=== PATIENT | male | born 1970 | race Caucasian/White ===

== ENCOUNTER 2022-02-16 15:40 | Outpatient (CLI) | payer OTHER, SELFPAY ==
--- NOTE | ~2022-02-16 | XR_ITS ---
EXAMINATION: XR knee LT 3V DATE: 02/16/2022 16:00 INDICATION: Anterior and medial left knee pain TECHNIQUE: AP, flexed lateral and sunrise views of the left knee were obtained. COMPARISON: None. FINDINGS: Alignment is normal. No fracture. Normal joint spaces but with tiny marginal osteophytes in all 3 co mpartments consistent with minimal tricompartmental osteoarthritis. No joint effusion/layering lipohe marthrosis. 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 Soft tissues are unremarkable. IMPRESSION: 1. Minimal tricompartmental osteoarthritis at the right knee. Reviewed, dictated and finalized at location A.
== END 2022-02-16 15:41 | disposition home or self-care (01) ==
PROVIDERS: PCP Internal Medicine; Visit Provider Internal Medicine
DX: M25.562 Pain in left knee (principal)
CPT/HCPCS: 73562

== ENCOUNTER 2024-07-20 09:15 | Outpatient (RCR) | payer MEDICAID, SELFPAY | END 2024-09-14 10:34 | disposition home or self-care (01) | LOC: ANHDMC 09:15 | PROVIDERS: PCP Internal Medicine; Visit Provider Internal Medicine | DX: E11.65 Type 2 diabetes mellitus with hyperglycemia (principal); Z71.89 Other specified counseling | CPT/HCPCS: G0108 ==

== ENCOUNTER 2024-11-16 07:52 | Day surgery (SDC) | payer OTHER, SELFPAY ==
[2024-11-03 08:45] VITALS: BMI 38.7
[2024-11-04 13:13] VITALS: BMI 38.7
--- NOTE | 2024-11-16 07:16 | P.PNAN_ITS ---
Anes - Initial Pre Proc Eval Procedure: Operation Date: 11/16/24 10:00 Proposed Procedures p Diagnostic Colonoscopy - Ernie Zuñiga DO Date/Time: 11/16/24 07:16 Surgeon: Ernie Zuñiga DO Pre Op Diagnosis: Positive Occult Blood Patient Data Age: 54 Gender: M Height: 1.7 m Weight: 112 kg Allergies Allergy/AdvReac Type Severity Reaction Status Date / Time acetaminophen (From Vicodin) Allergy Intermediate Gastrointestinal Verified 11/04/24 13:09 Upset hydrocodone (From Vicodin) Allergy Intermediate Gastrointestinal Verified 11/04/24 13:09 Upset Penicillins Allergy Intermediate Joint Pain Verified 11/04/24 13:09 Home Medications ?Medication ?Instructions ?Recorded ?Confirmed ?Type aspirin 81 mg tablet,delayed 81 mg PO DAILY 11/04/24 11/04/24 History release cyclobenzaprine 10 mg tablet 10 mg PO TID 11/04/24 11/04/24 History docusate sodium 100 mg capsule 100 mg PO BID PRN constipation 11/04/24 11/04/24 History duloxetine 60 mg capsule,delayed 60 mg PO DAILY 11/04/24 11/04/24 History release ibuprofen 600 mg tablet 600 mg PO Q8H PRN pain 11/04/24 11/04/24 History losartan 100 mg tablet 100 mg PO DAILY 11/04/24 11/04/24 History oxycodone-acetaminophen 5 mg-325 1 - 2 tablet PO Q4-6H PRN pain 11/04/24 11/04/24 History mg tablet pregabalin 200 mg capsule 200 mg PO BID 11/04/24 11/04/24 History rosuvastatin 5 mg tablet 5 mg PO DAILY 11/04/24 11/04/24 History semaglutide 1 mg/dose (4 mg/3 mL) 1 mg subcut WEEKLY 11/04/24 11/04/24 History subcutaneous pen injector (Ozempic) Patient hx anesthesia problems: none Family hx anesthesia problems: none Results Review: All pre-operative results and documents have been reviewed as part of the pre- operative evaluation. [facility] Past Medical History Medical History (Updated 11/16/24 @ 09:09 by Ernie Zuñiga DO) Chronic, continuous use of opioids Chronic pain Diabetes type 2, controlled Hypertension Hyperlipidemia Surgical History Surgical History (Updated 11/16/24 @ 07:17 by Kevan Echols DO) History of cervical spinal surgery Social History Social History Smoking status: Former smoker Tobacco type: cigarettes Living arrangements: with family Spiritual care concerns: No Anes - Eval Final PreProcedure Day of Procedure 11/16/24 07:16 Patient weight: obese Heart: regular rate and rhythm Lungs: clear to auscultation Airway: Mallampati scale class II Neurological: alert and oriented Last oral intake: >/= 8 hours ASA classification: III Emergent: no Anesthetic plan: proceed Anesthesia type and monitoring: general GIVS and standard monitoring Results Review: All pre-operative results and documents have been reviewed as part of the pre- operative evaluation. Informed Consent: The patient's anesthetic plan and its attendant risks and benefits were discussed with the patient/family/POA. Questions were solicited and answers provided to the satisfaction of the patient/family/POA.
[2024-11-16 09:08] VITALS: BP 123/77; PULSE 57; RESP 16; TEMP 36.9; O2SAT 100
--- NOTE | 2024-11-16 09:08 | P.HP_ITS ---
H&P: HPI History of Present Illness Date/Time: 11/16/24 09:08 Chief Complaint: positive occult blood in the stool Narrative: this is a 54-year-old man who presents for colonoscopy. It has been many years since he had a colonoscopy. He has some blood when wiping and sewed of fecal occult blood stool. Denies any blood mixed in with the stool. Denies family history of colon cancer. Review of Systems Review of Systems: All systems reviewed & are unremarkable except as noted in HPI and below Constitutional: Constitutional: Denies chills, Denies fever(s), Denies headache(s) and Denies weight loss Eyes: Eyes: Denies change in vision ENT: Denies dizziness, Denies headache(s), Denies neck mass and Denies throat swelling Cardiovascular: Cardiovascular: Denies chest pain, Denies lightheadedness and Denies dyspnea Respiratory: Respiratory: Denies cough, Denies dyspnea and Denies wheezing Gastrointestinal: Gastrointestinal: Denies abdominal pain, Denies change in bowel habits, Denies nausea and Denies vomiting Genitourinary: Genitourinary: Denies hematuria and Denies dysuria Musculoskeletal: Musculoskeletal: Reports as per HPI Integumentary/Breasts: Skin/Breast: Reports as per HPI Neurologic: Denies dizziness and Denies headache(s) Allergic/Immunologic: Allergic/Immunologic: Denies throat swelling and Denies wheezing [facility] Past Medical History Medical History (Updated 11/16/24 @ 09:09 by Ernie Zuñiga DO) Chronic, continuous use of opioids Chronic pain Diabetes type 2, controlled Hypertension Hyperlipidemia Surgical History Surgical History (Updated 11/16/24 @ 07:17 by Kevan Echols DO) History of cervical spinal surgery Social History Social History Smoking status: Former smoker Tobacco type: cigarettes Living arrangements: with family Spiritual care concerns: No Meds Home Medications and Allergies Home Medications ?Medication ?Instructions ?Recorded ?Confirmed ?Type aspirin 81 mg tablet,delayed 81 mg PO DAILY 11/04/24 11/04/24 History release cyclobenzaprine 10 mg tablet 10 mg PO TID 11/04/24 11/04/24 History docusate sodium 100 mg capsule 100 mg PO BID PRN constipation 11/04/24 11/04/24 History duloxetine 60 mg capsule,delayed 60 mg PO DAILY 11/04/24 11/04/24 History release ibuprofen 600 mg tablet 600 mg PO Q8H PRN pain 11/04/24 11/04/24 History losartan 100 mg tablet 100 mg PO DAILY 11/04/24 11/04/24 History oxycodone-acetaminophen 5 mg-325 1 - 2 tablet PO Q4-6H PRN pain 11/04/24 11/04/24 History mg tablet pregabalin 200 mg capsule 200 mg PO BID 11/04/24 11/04/24 History rosuvastatin 5 mg tablet 5 mg PO DAILY 11/04/24 11/04/24 History semaglutide 1 mg/dose (4 mg/3 mL) 1 mg subcut WEEKLY 11/04/24 11/04/24 History subcutaneous pen injector (Ozempic) Allergies Allergy/AdvReac Type Severity Reaction Status Date / Time acetaminophen (From Vicodin) Allergy Intermediate Gastrointestinal Verified 11/04/24 13:09 Upset hydrocodone (From Vicodin) Allergy Intermediate Gastrointestinal Verified 11/04/24 13:09 Upset Penicillins Allergy Intermediate Joint Pain Verified 11/04/24 13:09 Exam Const: General: no acute distress and alert Orientation/consciousness: patient oriented x3 HENMT: Head: normocephalic and atraumatic Ears: hearing grossly normal bilaterally Face/Nose/Sinus: Normal nares present Mouth: Yes Normal oral and palatal mucosa present Eyes: Periorbital: periorbital findings normal Sclera: sclerae normal EOM: EOMs intact bilaterally Neck: Neck: normal visual inspection, no lymphadenopathy and trachea midline Chest: Chest palpation & inspection: normal inspection of the chest Resp: Effort & Inspection: normal respiratory effort Auscultation: clear to auscultation bilaterally Cardio: Jugular venous distension: no JVD Rate: regular rate Rhythm: regular rhythm Heart sounds: S1 normal heart sound present and S2 normal heart sound present Peripheral pulses: Peripheral pulses 2+ throughout GI: Inspection: normal to inspection GI Palp: Yes Soft to palpation, No Tenderness to palpation present (GI), No Guarding due to palpation present (GI) and No Rebound tenderness present Percussion: Yes normal to percussion Auscultation: normal bowel sounds : General: Yes no CVA tenderness Back/Spine/Pelvis: Back: no CVA tenderness Neuro: General: patient oriented x3, no focal motor deficits and CN's II-XI intact bilaterally Cognition (Neuro): normal cognition Speech: normal speech Motor exam (neuro): 5/5 motor strength present throughout Extrem: General: capillary refill normal and no clubbing, cyanosis or edema Assessment and Plan Assessment and plan (1) Positive fecal occult blood test: Code(s): R19.5 - Other fecal abnormalities Status: Acute Assessment and Plan: I have recommended colonoscopy. I have discussed the procedure, risks, bene fits, and alternatives. Questions were answered. Patient is agreeable to proceed.
[2024-11-16] MEDS: LACTATED RINGERS 1,000 ML 150 ML IV CONT (09:10)
[2024-11-16 09:16] LABS: Glucose Point of Care 124 mg/dl (65-105)
[2024-11-16 09:38] VITALS: BP 120/74; PULSE 68; RESP 16; O2SAT 98
--- NOTE | 2024-11-16 09:45 | WPDANESPN ---
Anes - Prog Note Post-Op Date/Time: 11/16/24 09:45 Cardiovascular status: normal Respiratory status: normal Airway patency: baseline Mental status: baseline Post-Op hydration status: normal Vital Signs: Last Vital Signs Temp 36.9 C 11/16/24 09:08 Pulse 68 11/16/24 09:38 Resp 16 11/16/24 09:38 BP 120/74 11/16/24 09:38 Pulse Ox 98 11/16/24 09:38 O2 Del Method Room Air 11/16/24 09:38 Pain Score (VAS): 0 I/O: Intake & Output 11/15/24 11/16/24 11/16/24 23:59 07:59 15:59 Intake Total 300 Balance 300 11/16/24 09:11 POC Capillary Glucose 124 H Post-procedural complaints: none Patient Feedback: Patient satisfied with anesthetic care. Other Findings: Patient vital signs back to baseline. Patient denies nausea and vomiting. Patient's pain under control. Patient OK for discharge.
[2024-11-16 09:48] VITALS: BP 101/83; PULSE 75; RESP 16; O2SAT 99
[2024-11-16 09:58] VITALS: BP 115/97; PULSE 55; RESP 16; O2SAT 100
== END 2024-11-16 10:10 | disposition home or self-care (01) ==
PROVIDERS: PCP Internal Medicine; Visit Provider Surgery
PROC: 0DJD8ZZ Inspection of Lower Intestinal Tract, Via Natural or Artificial Opening Endoscopic (ICD-10-PCS; CPT 45378; principal; 2024-11-16 10:00)
DX: R19.5 Other fecal abnormalities (principal); D12.0 Benign neoplasm of cecum; D12.5 Benign neoplasm of sigmoid colon; A63.0 Anogenital (venereal) warts
CPT/HCPCS: 45380

== ENCOUNTER 2024-11-16 08:52 | Outpatient (NON) | payer OTHER, SELFPAY ==
--- OUTSIDE RECORDS SUMMARY | 2024-11-24 10:06 | XMS_ITS ---
Author Organization [facility] Address [address] [place] [address] Care Team Providers Care Creping Machine Operator Name Role Phone Gustavo Brian Carmine [phone] Encounters Encounter Location Date Provider Diagnosis [facility] [address] [place] [address] 08/02/2023 Brian Chen PLAN OF TREATMENT No Information Progress Notes * Javier SANCHEZ:1970 (52 yo M)Acc No.[id number]:08/02/2023 Patient:??Javier Sanchez :1970?Age:52 Y?Sex:Ma le Address:[address] [place] [address];, [place] [address] * true * Date:??
--- OUTSIDE RECORDS SUMMARY | 2024-11-24 10:06 | XMS_ITS | Encounter Summary ---
Author Organization [employer] Care Team Providers Care Plastic Boat Patcher Name Role Phone Hai Pradhan MD Primary Care Provider [phone] Encounter Details Date Type Department Care Team (Latest Contact Info) Description 02/21/2023 Travel Social History Tobacco Use Types Packs/Day Years Used Date Smoking Tobacco: Never Smokeless Tobacco: Never Alcohol Use Standard Drinks/Week Comments Yes 0 (1 standard drink = 0.6 oz pur e alcohol) Sex and Gender Information Value Date Recorded Sex Assigned at Not on file Legal Sex Male 10:09 PM CDT Gender Identity Not on file Sexual Orientation Not on file COVID-19 Exposure Response Date Recorded In the last 10 days, have yo u been in contact with someone who was confirmed or suspected to have Coronavirus/COVID-19? No / Unsure 02/21/2023 8:04 AM CDT documented as of this encounter Plan of Treatment Not on file documented as of this encounter Visit Diagnoses Not on filedocumented in this encounter Care Teams Plastic Boat Patcher Relationship Specialty Start Date End Date Hai Pradhan MD [address] [place] [address] PCP - General Internal Medicine 02/18/23 documented as of this encounter
--- OUTSIDE RECORDS SUMMARY | 2024-11-24 10:06 | XMS_ITS | Encounter Summary ---
Author Organization [facility] Address [address] [place] [address] Phone Care Team Providers Care Elevator Constructor Supervisor Name Role Phone Hai Pradhan MD Primary Care Provider [phone] Reason for Visit * Auth/Cert (Routine) Specialty Diagnoses / Procedures Referred By Contac t Referred To Contact Diagnoses LOW BACK PAIN Procedures PRE / POST CARE FOR PROCEDURAL AREA Referral ID Status Reason Start Date Expiration Date Visits Re quested Visits Authorized [id number] 1 1 Encounter Details Date Type Department Care Team (Late st Contact Info) Description 02/21/2023 9:00 AM CDT - 02/21/2023 10:00 AM CDT Surgery [facility] [address] [place] [address] Provider, Not On File [place] PRE / POST CARE FOR PROCEDURAL AREA - CT MYELOGRAM LUMBAR SPINE Surgery Details Date/Time Status Location OR Service Patient Class Case Class Case Type Trauma Case? 02/21/2023 9:00 AM Posted [facility] INVASIVE IMAGING [facility] IR [facility] Ambulatory Surgery Panel 1 Procedure [facility] Anes Op Region Wound Class Comments PRE / POST CARE FOR PROCEDUR AL AREA - CT MYELOGRAM LUMBAR SPINE N/A Local Surgeon Surgeon Role Service Panel Provider, Not On File Primary Radiology 1 documented in this encounter Social History Tobacco Use Types Packs/Day Years [...] Recorded In the last 10 days, have ruperto u been in contact with someone who was confirmed or suspected to have Coronavirus/COVID-19? No / Unsure 02/21/2023 8:04 AM CDT documented as of this encounter Last Filed Vital Signs Vital Sign Reading Time Taken Comments Blood Pressure 150/88 02/21/2023 10:00 AM CDT Pulse 54 02/21/2023 10:00 AM CDT Temperature 36.9 ??C (98.4 ??F) 02/21/2023 10:00 AM C DT Respiratory Rate 15 02/21/2023 10:00 AM CDT Oxygen Saturation 100% 02/21/2023 10:00 AM CDT Inhaled Oxygen Concentration - - Weight 124.3 kg (274 lb) 02/21/2023 8:22 AM CDT Height 170.2 cm (5' 7 ) 02/21/2023 8:22 AM CDT Body Mass Index 42.91 02/21/2023 8:22 AM CDT documented in this encounter Discharge Instructions * Discharge Instructions* Neli Mae, RN - 02/21/2023 10:04 AM CDT GENERAL GUIDELINES FOR MINIMIZING NAUSEA: Do not take pain medication on an empty stomach Eat small portions of foods because they are easier to digest and move through your stomach much faster. Be sure you are staying hydrated. Clear, cool beverages are recommended. Only take what you can tolerate. You might like trying clear soups, flavored gelatin, carbonated beverages, popsicles and ice cubes made of frozen drinks. Avoid the smells of cooking food, especially greasy ones, as the smells make make you nauseated. documented in this encounter Medications at Time of Discharge DULoxetine (CYMBALTA) [address] Particles TAKE 1 CAP BY MOUTH DAILY. 90 Cap 10/21/2017 losartan (COZAAR) 100 MG Tablet Take 100 mg by mouth. 10/23/2021 documented as of this encounter Miscellaneous Notes * Interdisciplinary - Neli Mae, RN - 02/21/2023 10:51 AM CDT Pt. Ready for D/c. D/C instructions given, all questions answered. No complaints, VSS. Pt. To be wheeled out by RN, pt. To be driven home by family. Vick Mae RN * Plan of Care - Neli Mae RN - 02/21/2023 10:08 AM CDT Problem: Adult Inpatient Plan of Care Goal: Plan of Care Review Outcome: Outcome Achieved Flowsheets (Taken 02/21/2023 1008) Today's Goal: pt. to go home today Goal: Patient-Specific Goal (Individualized) Outcome: Outcome Achieved Goal: Absence of Hospital-Acquired Illness or Injury Outcome: Outcome Achieved Goal: Optimal Comfort and Wellbeing Outcome: Outcome Achieved Goal: Readiness for Transition of Care Outcome: Outcome Achieved * PatientPass Patient Instructions - Provider, Not On File - 02/21/2023 10:05 AM CDT Patient Education Table of Contents Myelogram To view videos and all your education online visit, [email or web address] or scan this QR code with your smartphone. Myelogram A myelogram is an imaging study of the spinal cord and the places where nerves attach to the spinalcord (nerve roots). A dye (contrast material) is injected into the spine before the X-ray. This provides a clearer image for your health care provider to see. You may need this study done if you have a spinal cord problem that cannot be diagnosed with other imaging studies, such as a CT scan or an MRI. You may also have this study to check your spine aftersurgery. Tell a health care provider about: Any allergies you have, especially to iodine. All medicines you are taking, including vitamins, herbs, eye drops, creams, and oprp-ukw-catfoev medicines. Any problems you or family members have had with anesthetic medicines or contrast material. Any blood disorders you have. Any surgeries you have had. Any medical conditions you have or have had, including asthma. Whether you are or may be . What are the risks? Generally, this is a safe procedure. However, problems may occur, including: Infection. Bleeding. Allergic reaction to medicines or dyes. Damage to your spinal cord or nerves. Loss or leaking of spinal fluid. This can lead to headaches. Damage to kidneys. Seizures. This is rare. What happens before the procedure? Follow instructions from your health care provider about eating or drinking restrictions. You may be asked to drink more fluids. Ask your health care provider about changing or stopping your regular medicines. This is especiallyimportant if you are taking diabetes medicines or blood thinners. Plan to have someone take you home from the hospital or clinic. If you will be going home right after the procedure, plan to have someone with you for 24 hours. What happens during the procedure? You will lie face down on a table. Your health care provider will locate the best injection site on your spine. This is most often in the lower back. The area of injection will be washed with soap. You will be given a medicine to numb the area (local anesthetic). Your health care provider will insert a long needle into the space around your spinal cord (subarachnoid space). A sample of spinal fluid may be taken and sent to the lab for testing. The contrast material will be injected into the subarachnoid space. The exam table may be tilted to help the contrast material flow up or down your spine. The X-ray will take images of your spinal cord for your health care provider to examine. A bandage (dressing) may be placed over the injection site. The procedure may vary among health care providers and hospitals. What can I expect after this procedure? Your blood pressure, heart rate, breathing rate, and blood oxygen level may be monitored until you leave the hospital or clinic. You may have: Soreness on your injection site. A mild headache. You will be asked to lie down with your head raised (elevated). This reduces the risk of a headache. It is up to you to get the results of your procedure. Ask your health care provider, or the department that is doing the procedure, when your results will be ready. Follow these instructions at home: Rest as told by your health care provider. Lie flat with your head slightly elevated to reduce the risk of a headache. Do not bend, lift, or do hard work for 24?48 hours, or as told by your health care provider. Take rqgf-ldw-zsyfulh and prescription medicines only as told by your health care provider. Take care of your dressing as told by your health care provider. Drink enough fluid to keep your urine pale yellow. Bathe or shower as told by your health care provider. Contact a health care provider if: You have a fever. You have a headache that lasts longer than 24 hours. You feel nauseous or vomit. You have a stiff neck or numbness in your legs. You are unable to urinate or have a bowel movement. You develop a rash, itching, or sneezing. Get help right away if: You have new symptoms or your symptoms get worse. You have a seizure. You have trouble breathing. Summary A myelogram is an imaging study of the spinal cord and the places where nerves attach to the spinalcord (nerve roots). Before the procedure, follow instructions from your health care provider about changing or stoppingyour regular medicines, and eating and drinking restrictions. After this procedure, you will be asked to lie down with your head raised (elevated). This reduces your risk of a headache. Do not bend, lift, or do hard work for 24?48 hours, or as told by your health care provider. Contact a health care provider if you have a stiff neck or numbness in your legs. Get help right away if symptoms get worse, or you have a seizure or trouble breathing. This information is not intended to replace advice given to you by your health care provider. Make sure you discuss any questions you have with your health care provider. Document Released: 07/04/2005Document Revised: 2Document Reviewed: 01/21/2020 [employer] Patient Education ? 2022 [employer]. documented in this encounter Plan of Treatment Not on file documented as of this encounter Procedures Procedure Name Priority Date/Time Associated Diagnosis Comments PRE / POST CARE FOR PROCEDURAL AREA 02/21/2023 9:00 AM CDT LOW BACK PAIN documented in this encounter Visit Diagnoses Not on filedocumented in this encounter Care Teams Elevator Constructor Supervisor Relationship Specialty Start Date End Date Hai Pradhan MD [address] [place] [address] PCP - General Internal Medicine 02/18/23 documented as of this encounter
--- OUTSIDE RECORDS SUMMARY | 2024-11-24 10:06 | XMS_ITS | Patient Health Record ---
Author Organization [facility] Address [address] [address] Care Team Providers Care Tree Trimming Supervisor Name Role Phone Brian Chen [phone] ALLERGIES Allergen (clinical drug ingredient) Drug/Non Drug Allergy documented on EMR Reaction Allergy Type Onset Date Status Penicillin itchy Drug Allergy Active REASON FOR REFERRAL No Information MEDICATIONS Medication SIG (Take, Route, Frequency, Duration) Notes Start Date End Date Status Pregabalin 75 MG 1 capsule Orally riana ly at bedtime for one week then, if well tolerated, q 12 hours for 30 days 04/16/2023 Active DULoxetine HCl 60 MG 1 capsule Orally On ce a day Active Celecoxib 200 MG 1 capsule with food Orally Once a day Active Losartan Potassium 100 MG 1 tablet Orally Once a day Active SOCIAL HISTORY Tobacco Use: Social History Observation Description Date Details (start date - stop date) Former Smoker NA - NA Sex Assigned At : Social History Observation Description Sex Assigned At Unknown Tobacco Use/Smoking Question Answer Notes Are you a former smoker PROBLEMS Problem Type ICD Code Onset Dates Problem Status W/U Status Risk SNOMED Code Notes Problem Failed back syndrome (M96.1) Active confirmed Failed back syndrome (29940394) Problem Bilateral sacroiliitis (M46.1) Active confirmed Bilateral sacroiliitis (6298907845) Problem History of lumbar fusion (Z98.1) Active confirmed History of lumbar fusion (51417426437228) PLAN OF TREATMENT No Information MEDICATIONS ADMINISTERED Medication Instructions Date of Administration Dosage Notes Bilateral Sacroiliac Joint Injection 04/29/2023 MEDICAL (GENERAL) HISTORY Medical History History ICD Code high blood pressure headaches nerve damage
--- OUTSIDE RECORDS SUMMARY | 2024-11-24 10:06 | XMS_ITS | Clinical Summary ---
Author Organization [facility] Address [address] [place] [address] Phone Care Team Providers Care Scrap Hoist Operator Name Role Phone Hai Pradhan MD Primary Care Provider [phone] Allergies Active Allergy Reactions Criticality Noted Date Comments Hydrocodone-Acetaminophen Nausea 02/21/2023 Sweating and nauseas Penicillins Unknown Medications DULoxetine (CYMBALTA) [address] Particles TAKE 1 CAP BY MOUTH DAILY. 90 Cap 10/21/2017 Active losartan (COZAAR) 100 MG Tablet Take 100 mg by mouth. 10/23/2021 Active Active Problems Problem Noted Date Diagnosed Date Depression 05/23/2016 Acid reflux Immunizations Immunization Administration Dates Next Due Influenza Vaccine greater than 3 yrs 07/26/2014 Pneumococcal Vaccine Adult - 23 Valent 4 TD VACCINE 05/25/2007 Social History Tobacco Use Types Packs/Day Years Used Date Smoking Tobacco: Never Smokeless Tobacco: Never Alcohol Use Standard Drinks/Week Comments Yes 0 (1 standard drink = 0.6 oz pur e alcohol) Sex and Gender Information Value Date Recorded Sex Assigned at Not on file Legal Sex Male 10:09 PM CDT Gender Identity Not on file Sexual Orientation Not on file Last Filed Vital Signs Vital Sign Reading Time Taken Comments Blood Pressure 116/72 02/21/2023 10:45 AM CDT Pulse 62 02/21/2023 10:45 AM CDT Temperature 37 ??C (98.6 ??F) 02/21/2023 10:45 AM CDT Respiratory Rate 15 02/21/2023 10:45 AM CDT Oxygen Saturation 98% 02/21/2023 10:45 AM CDT Inhaled Oxygen Concentration - - Weight 124.3 kg (274 lb) 02/21/2023 8:22 AM CDT Height 170.2 cm (5' 7 ) 02/21/2023 8:22 AM CDT Body Mass Index 42.91 02/21/2023 8:22 AM CDT Plan of Treatment Health Maintenance Due Date Last Done Comments Hepatitis C Virus (HCV) Screening 1971 Colonoscopy 2016 Colorectal Cancer Screening 2016 Hepatitis B Immunization (2 of 3 - Hep B Twinrix 3-dose series) 08/25/2019 07/28/2019 Cologuard 2021 Immunochemical Fecal Occult Blood 2021 Pneumococcal Immunization (50+ years) (3 of 3 - PCV20 or PCV21) 07/17/2024 07/17/2019, 02/06/2018, 08/10/2014, Additional history exists Influenza Immunization (#1) 07/26/202402/2022, 08/26/2020, 08/29/2019, Additional history exists SARS-COV-2 Immunization ( season) 2024 08/27/2022, 11/09/2021, 04/21/2021, Additional history exists Respiratory Syncytial Virus (RSV) Immunization (Adult) (1 - 1-dose 75+ series) 2046 Pneumococcal Immunization Combined Discontinued 07/17/2019, 02/06/2018, 08/10/2014, Additional history exists DTaP/Tdap/Td Immunization Discontinued 2021, 09/17/2014, 05/25/2007 TdaP Immunization Completed 04/16/2022 Zoster Immunization Completed 05/08/2022, 2 Meningococcal Immunization (ACWY) Aged Out No longer eligible based on patient's age to complete this topic Rotavirus Immunization Aged Out No lo nger eligible based on patient's age to complete this topic Insurance [facility] 15TH FLOOR [facility] [id number] Care Teams Scrap Hoist Operator Relationship Specialty Start Date End Date Hai Pradhan MD [address] [place] [address] PCP - General Internal Medicine 02/18/23
--- OUTSIDE RECORDS SUMMARY | 2024-11-24 10:07 | XMS_ITS | Encounter Summary ---
Author Organization [facility] Address [address] [place] [address] Phone Care Team Providers Care Operations And Intelligence Assistant Name Role Phone Shonda Carlton PAC Primary Care Pro vider Reason for Visit * Reason Comments Cough Encounter Details Date Type Department Care Team (Late st Contact Info) Description 10/13/2020 10:41 AM SKIN CARE THERAPIST - 10/13/2020 12:55 PM SKIN CARE THERAPIST Emergency [facility] Emergency [address] [place] [address] Bowen Do, PAC [address] [place] [address] Chest wall pain Discharge Disposition: Discharged to home or Selfcare Social History Tobacco Use Types Packs/Day Years [...] Exposure Response Date Recorded In the last month, have you been in contact with someone who was confirmed or suspected to have Coronavirus / COVID-19? Yes 10/13/2020 10:34 AM SKIN CARE THERAPIST documented as of this encounter Last Filed Vital Signs Vital Sign Reading Time Taken Comments Blood Pressure 139/80 10/13/2020 12:53 PM SKIN CARE THERAPIST Pulse 58 10/13/2020 12:53 PM SKIN CARE THERAPIST Temperature 36.3 ??C (97.3 ??F) 10/13/2020 10:[address] Respiratory Rate 18 10/13/2020 12:53 PM SKIN CARE THERAPIST Oxygen Saturation 98% 10/13/2020 12:53 PM SKIN CARE THERAPIST Inhaled Oxygen Concentration - - Weight 115.7 kg (255 lb) 10/13/2020 10:36 AM SKIN CARE THERAPIST Height 170.2 cm (5' 7 ) 10/13/2020 10:36 AM SKIN CARE THERAPIST Body Mass Index 39.94 10/13/2020 10:36 AM SKIN CARE THERAPIST documented in this encounter Discharge Instructions * Attachments The following attachments cannot be sent through Care Everywhere. * Chest Pain, Noncardiac (Afghan) documented in this encounter Medications at Time of Discharge DULoxetine (CYMBALTA) [address] Particles TAKE 1 CAP BY MOUTH DAILY. 90 Cap 10/21/2017 predniSONE (DELTASONE) 20 MG Tablet Take 1 Tab by mouth 2 times daily for 5 days. 10 Tab 10/13/2020 10/18/2020 documented as of this encounter ED Notes * Prisca Awda RN - 10/13/2020 12:54 PM CST Patient discharged. Discharge instructions and patient educational material reviewed with patient; questions and concerns addressed; patient verbalizes understanding, using teach back. Patient was given 1 prescription. Patient ambulated to exit. CARE THERAPIST CARE THERAPIST * Bowen Do, AIMEE - 10/13/2020 11:34 AM CST Chief Complaint Patient presents with ??? Cough Javier Sanchez is a 50 y.o. male who presents to the ED c/o right upper chest pain with deep inspiration and dry cough. No fever. Patient was COVID positive 10/06 and taken off restriction 10/11. He started a zpack 10/11 for right upper chest pain presumed pneumonia by PCP, no improvement. patient hashad similar sxs in the past as a result of pneumonia. Patient appears in no acute distress. Patient afebrile, SpO2 97% on RA. History reviewed. No pertinent past medical history. No current facility-administered medications for this encounter. Current Outpatient Medications Medication Sig Dispense Refill ??? DULoxetine (CYMBALTA) [address] Particles TAKE 1 CAP BY MOUTH DAILY. 90 Cap 0 ??? predniSONE (DELTASONE) 20 MG Tablet Take 1 Tab by mouth 2 times daily for 5 days. 10 Tab 0 Allergies Allergen Reactions ??? Penicillins Unknown History reviewed. No pertinent past medical history. No past surgical history on file. Social History Socioeconomic History ??? Marital status: Spouse name: Not on file ??? Number of children: Not on file ??? Years of education: Not on file ??? Highest education level: Not on file Occupational History ??? Not on file Social Needs ??? Financial resource strain: Not on file ??? Food insecurity Worry: Not on file Inability: Not on file ??? Transportation needs Medical: Not on file Non-medical: Not on file Tobacco Use ??? Smoking status: Never Smoker ??? Smokeless tobacco: Never Used Substance and Sexual Activity ??? Alcohol use: Yes Alcohol/week: 0.0 oz ??? Drug use: No ??? Sexual activity: Not on file Lifestyle ??? Physical activity Days per week: Not on file Minutes per session: Not on file ??? Stress: Not on file Relationships ??? Social connections Talks on phone: Not on file Gets together: Not on file Attends judaism service: Not on file Active member of club or organization: Not on file Attends meetings of clubs or organizations: Not on file Relationship status: Not on file ??? Intimate partner violence Fear of current or ex partner: Not on file Emotionally abused: Not on file Physically abused: Not on file Forced sexual activity: Not on file Other Topics Concern ??? Not on file Social History Narrative ??? Not on file BP 139/80 Pulse 58 Temp 97.3 ??F (36.3 ??C) (Tympanic) Resp 18 Ht 5' 7 (1.702 m) Wt 255 lb (115.7 kg) SpO2 98% BMI 39.94 kg/m?? Review of Systems Constitutional: Negative for chills, fatigue and fever. HENT: Negative for congestion and sore throat. Respiratory: Positive for cough. Negative for chest tightness, shortness of breath and wheezing. Cardiovascular: Positive for chest pain (chest wall pain). Negative for palpitations. Gastrointestinal: Negative for abdominal pain, constipation, diarrhea, nausea and vomiting. Genitourinary: Negative for dysuria, frequency, hematuria and urgency. Musculoskeletal: Negative for arthralgias and back pain. Skin: Negative for color change and wound. Neurological: Negative for dizziness, light-headedness and headaches. All other systems reviewed and are negative. Physical Exam Vitals signs and nursing note reviewed. Constitutional: General: He is not in acute distress. Appearance: He is well-developed. He is not diaphoretic. HENT: Head: Normocephalic and atraumatic. Eyes: Pupils: Pupils are equal, round, and reactive to light. Neck: Musculoskeletal: Normal range of motion and neck supple. Thyroid: No thyromegaly. Cardiovascular: Rate and Rhythm: Normal rate and regular rhythm. Heart sounds: Normal heart sounds. No murmur. Pulmonary: Effort: Pulmonary effort is normal. No respiratory distress. Breath sounds: Normal breath sounds. No wheezing, rhonchi or rales. Chest: Chest wall: No tenderness. Abdominal: General: Bowel sounds are normal. There is no distension. Palpations: Abdomen is soft. There is no mass. Tenderness: There is no abdominal tenderness. There is no guarding or rebound. Musculoskeletal: Normal range of motion. General: No tenderness. Lymphadenopathy: Cervical: No cervical adenopathy. Skin: General: Skin is warm and dry. Coloration: Skin is not pale. Findings: No erythema or rash. Neurological: Mental Status: He is alert and oriented to person, place, and time. Cranial Nerves: No cranial nerve deficit. Psychiatric: Behavior: Behavior normal. Complete Blood Count (CBC) WITH Diff Final Result CMP (Comprehensive Metabolic Panel) Final Result D-DIMER [id number] Final Result Extra Tubes Final Result XR CHEST SINGLE VIEW Final Result IMPRESSION: No radiographic evidence of an acute cardiopulmonary abnormality. Procedures Imaging Results XR CHEST SINGLE VIEW (Final result) Result time 10/13/20 11:54:36 Final result by Bowen Banerjee MD (10/13/20 11:54:36) Impression: IMPRESSION: No radiographic evidence of an acute cardiopulmonary abnormality. Narrative: EXAM DESCRIPTION: XR CHEST SINGLE VIEW REASON FOR STUDY: Worsening cough for 2 days. Diagnosed with COVID-19 1 week ago. TECHNIQUE: Frontal radiographic view of the chest acquired. COMPARISON: CT chest 10/05/2014 FINDINGS: LUNGS/PLEURA: There is chronic mild elevation of the left hemidiaphragm, similar in appearance to the prior study. No definite airspace consolidation, pneumothorax, or pleural effusion is identified. HEART/MEDIASTINUM: The cardiomediastinal silhouette is within normal limits. HARDWARE/LINES/TUBES: None. BONES: No acute findings. THIS IS AN ELECTRONICALLY VERIFIED FINAL REPORT 10/13/2020 11:51 AM - Electronically signed by Bowen Banerjee M.D., MD: Report ID: [id number] Reading Location: [address] Coding Clinical Impression 1. Chest wall pain D dimer negative, unremarkable CXR. Steroid started today. PCP follow up in 2-3 days. Return to ED for worsening sxs. The patient remained stable throughout their ED stay. My clinical impression was discussed with thepatient/family. Labs and radiology results were reviewed with them. I gave them the opportunity to ask questions, and addressed them as completely as possible given the information available at present. The therapeutic plan was discussed, advised to take medications as instructed, instructions weregiven and the importance of primary care follow up was stressed and encouraged. The patient/family voiced understanding of the plan, indications to return, and the need for follow up. Cosigned by Soto Lund MD at 10/19/2020 6:04 AM SKIN CARE THERAPIST CARE THERAPIST CARE THERAPIST * Gordon Ponce RN - 10/13/2020 10:40 AM CST PRESENTS WITH C/O COUGH WORSENING X2 DAYS. DX'ED WITH COVID 10/06/20. CARE THERAPIST documented in this encounter Plan of Treatment Not on file documented as of this encounter Procedures Procedure Name Priority Date/Time Associated Diagnosis Comments EXTRA TUBES STAT 10/13/2020 11:57 AM SKIN CARE THERAPIST GOLD TOP TUBE STAT 10/13/2020 11:57 AM SKIN CARE THERAPIST CBC WITH AUTO DIFFERENTIAL STAT 10/13/2020 11:57 AM SKIN CARE THERAPIST D-DIMER STAT 10/13/2020 11:57 AM SKIN CARE THERAPIST CMP (COMPREHENSIVE METABOLIC PANEL) STAT 10/13/2020 11:57 AM SKIN CARE THERAPIST COMPLETE BLOOD COUNT (CBC) WITH DIFF STAT 10/13/2020 11:57 AM SKIN CARE THERAPIST XR CHEST SINGLE VIEW STAT 10/13/2020 11:32 AM SKIN CARE THERAPIST documented in this encounter Results * Gold Top Tube (10/13/2020 11:57 AM SKIN CARE THERAPIST) Blood No Phlebotomy Charged / Unknown 10/13/2020 11:57 AM SKIN CARE THERAPIST 10/13/2020 12:15 PM SKIN CARE THERAPIST Bowen Do PAC CHEMISTRY ORDERABLES Final Result [facility] [place] [address] * CBC with Auto Differential (10/13/2020 11:57 AM SKIN CARE THERAPIST) WBC 6.23 4.00 - 12.00 10(3)/mcL 10/13/2020 12:13 PM SKIN CARE THERAPIST [facility] RBC 5.22 4.40 - 5.80 10(6)/mcL 10/13/2020 12:13 PM SKIN CARE THERAPIST [facility] HEMOGLOBIN (HGB) 14.9 13.0 - 16.5 g/dL 10/13/2020 12:13 PM SKIN CARE THERAPIST [facility] HEMATOCRIT (HCT) 45.2 38.0 - 50.0 % 10/13/2020 12:13 PM SKIN CARE THERAPIST [facility] MCV 86.6 82.0 - 96.0 fL 10/13/2020 12:13 PM SKIN CARE THERAPIST [facility] MCH 28.5 26.0 - 32.0 pg 10/13/2020 12:13 PM [facility] MCHC 33.0 31.0 - 36.0 g/dL 10/13/2020 12:13 PM [facility] PLATELET COUNT 295 140 - 440 10(3)/[facility] 10/13/2020 12:13 PM [facility] RDW 12.9 11.8 - 15.5 % 10/13/2020 12:13 PM [facility] MPV 10.4 8.0 - 12.6 fL 10/13/2020 12:13 PM [facility] NEUTROPHILS 61.1 40.0 - 68.0 % 10/13/2020 12:13 PM [facility] LYMPHOCYTES 25.7 19.0 - 49.0 % 10/13/2020 12:13 PM [facility] MONOCYTES 11.1 3.0 - 13.0 % 10/13/2020 12:13 PM [facility] EOSINOPHILS 1.8 0.0 - 8.0 % 10/13/2020 12:13 PM [facility] BASOPHILS 0.3 0.0 - 1.0 % 10/13/2020 12:13 PM [facility] ABSOLUTE NEUTROPHILS 3.81 1.40 - 5.30 10(3)/[facility] 10/13/2020 12:13 PM [facility] ABSOLUTE LYMPHOCYTES 1.60 0.90 - 3.30 10(3)/[facility] 10/13/2020 12:13 PM [facility] ABSOLUTE MONOCYTES 0.69 0.10 - 0.90 10(3)/[facility] 10/13/2020 12:13 PM [facility] ABSOLUTE EOSINOPHIL 0.11 0.00 - 0.50 10(3)/[facility] 10/13/2020 12:13 PM [facility] ABSOLUTE BASOPHILS 0.02 0.00 - 0.10 10(3)/[facility] 10/13/2020 12:13 PM [facility] NRBC PER 100 WBC 0 10/13/20 20 12:13 PM [facility] Blood Venipuncture / Unknown 10/13/2020 11:57 AM SKIN CARE THERAPIST 10/13/2020 12:10 PM SKIN CARE THERAPIST Bowen Do PAC HEMATOLOGY ORDERABLE S Final Result Performing Organization Address City/[facility]/ZIP Co de Phone Number [facility] [place] [address] * D-DIMER [id number] (10/13/2020 11:57 AM SKIN CARE THERAPIST) D DIMER <=0.27 <0.50 mcg/mL FEU 10/13/2020 12:30 PM SKIN CARE THERAPIST [facility] Blood Venipuncture / Unknown 10/13/2020 11:57 AM SKIN CARE THERAPIST 10/13/2020 12:10 PM SKIN CARE THERAPIST Narrative [facility] - 10/13/2020 12:30 PM SKIN CARE THERAPIST The FDA has approved this method to exclude the diagnosis of DVT and/or PE at the cutoff value of <0.50 mcg/mL FEU. us Bowen Do PAC HEMATOLOGY ORDERABLE S Final Result Performing Organization Address [facility] Co de Phone Number [facility] [place] [address] * (ABNORMAL) CMP (Comprehensive Metabolic Panel) (10/13/2020 11:57 AM SKIN CARE THERAPIST) Pathologist [facility] SODIUM 139 136 - 144 mmol/L 10/13/2020 12:33 PM SKIN CARE THERAPIST [facility] POTASSIUM 4.4 3.5 - 5.1 mmol/L 10/13/2020 12:33 PM SKIN CARE THERAPIST [facility] CHLORIDE 103 100 - 110 mmol/L 10/13/2020 12:33 PM SKIN CARE THERAPIST [facility] CO2, VENOUS 25 22 - 32 mmol/L 10/13/2020 12:33 PM SKIN CARE THERAPIST [facility] ANION GAP 15.4 8.0 - 20.0 mmol/L 10/13/2020 12:33 PM SKIN CARE THERAPIST [facility] GLUCOSE 97 70 - 99 mg/dL 10/13/2020 12:33 PM [facility] BUN 15 6 - 20 mg/dL 10/13/2020 12:33 PM [facility] CREATININE, BLOOD 1.00 0.80 - 1.30 mg/dL 10/13/2020 12:33 PM [facility] BUN/CREATININE RATIO 15 12 - 20 ratio 10/13/2020 12:33 PM [facility] TOTAL PROTEIN 7.3 6.0 - 8.3 g/dL 10/13/2020 12:33 PM [facility] ALBUMIN 4.6 3.5 - 5.2 g/dL 10/13/2020 12:33 PM [facility] Comment: The colormetric methods used for the determination of Albumin may lead to falsely elevated test results in patients suffering from renal failure or insufficiency due to interference with other proteins. A/G RATIO 1.7 1.0 - 2.0 10/13/2020 12:33 PM [facility] CALCIUM 9.3 8.9 - 10.3 mg/dL 10/13/2020 12:33 PM [facility] T BILI <=0.2 <=1.2 mg/dL 10/13/2020 12:33 PM [facility] SGOT (AST) 30 <=40 U/L 10/13/2020 12:33 PM [facility] SGPT (ALT) 52(H) <=41 U/L 10/13/2020 12:33 PM [facility] ALKALINE PHOSPHATASE 74 40 - 130 U/L 10/13/2020 12:33 PM [facility] GFR, EST. NONAFRICAN >60 >=60 10/13/2020 12:33 PM [facility] GFR, EST. >60 >=60 020 12:33 PM [facility] Comment: Creatinine Clearance is the preferred criteria for selecting drug dose adjustments in renally impaired patients. ??The GFR is provided as additional pertinent clinical information. GFR is reported in mL/min/1.73 sq m. Blood Venipuncture / Unknown 10/13/2020 11:57 AM SKIN CARE THERAPIST 10/13/2020 12:10 PM SKIN CARE THERAPIST Bowen Do PAC CHEMISTRY ORDERABLES Final Result [facility] [place] [address] * XR CHEST SINGLE VIEW (10/13/2020 11:32 AM SKIN CARE THERAPIST) Anatomical Region Laterality Modality Chest N/A Digital Radiogra phy 10/13/2020 11:5 1 AM SKIN CARE THERAPIST Impressions 10/13/2020 11:54 AM SKIN CARE THERAPIST IMPRESSION: ?? No radiographic evidence of an acute cardiopulmonary abnormality. Narrative 10/13/2020 11:54 AM SKIN CARE THERAPIST EXAM DESCRIPTION: ?? XR CHEST SINGLE VIEW REASON FOR STUDY: ?? Worsening cough for 2 days. ??Diagnosed with COVID-19 1 week ago. TECHNIQUE: ?? Frontal radiographic view of the chest acquired. COMPARISON: ?? CT chest 10/05/2014 FINDINGS: ??LUNGS/PLEURA: ??There is chronic mild elevation of the left hemidiaphragm, similar in appearance to the prior study. ??No definite airspace consolidation, pneumothorax, or pleural effusion is identified. HEART/MEDIASTINUM: ??The cardiomediastinal silhouette is within normal limits. HARDWARE/LINES/TUBES: ??None. BONES: ??No acute findings. THIS IS AN ELECTRONICALLY VERIFIED FINAL REPORT 10/13/2020 11:51 AM - Electronically signed by Bowen Banerjee M.D., MD: D: ??10/13/2020 11:51 AM T: ??10/13/2020 11:51 AM Report ID: [id number] Reading Location: ??[id number] Procedure Note Bowen Banerjee MD - 10/13/2020 EXAM DESCRIPTION: XR CHEST SINGLE VIEW REASON FOR STUDY: Worsening cough for 2 days. Diagnosed with COVID-19 1 week ago. TECHNIQUE: Frontal radiographic view of the chest acquired. COMPARISON: CT chest 10/05/2014 FINDINGS: LUNGS/PLEURA: There is chronic mild elevation of the left hemidiaphragm, similar in appearance to the prior study. No definite airspace consolidation, pneumothorax, or pleural effusion is identified. HEART/MEDIASTINUM: The cardiomediastinal silhouette is within normal limits. HARDWARE/LINES/TUBES: None. BONES: No acute findings. THIS IS AN ELECTRONICALLY VERIFIED FINAL REPORT 10/13/2020 11:51 AM - Electronically signed by oBwen Banerjee M.D. MD: Report ID: [id number] Reading Location: [place] [address] IMPRESSION: No radiographic evidence of an acute cardiopulmonary abnormality. Bowen Do PAC IMG DIAGNOSTIC ORDER FLOR Final Result documented in this encounter Visit Diagnoses Diagnosis Chest wall pain- Primary Painful respiration documented in this encounter Active and Recently Administered Medications Care Teams Operations And Intelligence Assistant Relationship Specialty Start Date End Date Shonda Carlton, PAC [address] [place] [address] PCP - General Physician Antenna Rigger 07/17/17 02/20/22 documented as of this encounter
--- OUTSIDE RECORDS SUMMARY | 2024-11-24 10:07 | XMS_ITS | Encounter Summary ---
Author Organization [facility] Address [address] [place] [address] Phone Care Team Providers Care Strategic Manager Name Role Phone Hai Pradhan MD Primary Care Provider Reason for Referral * Radiology Services (Routine) - Closed Specialty Diagnoses / Procedures Referred By Contac t Referred To Contact Radiology Diagnoses Lumbar radiculopathy Low back pain, unspecified back pain laterality, unspecified chronicity, unspecified whether sciatica present Procedures XR LUMBAR MYELO 1 PHY PC PAIN CONSULT XR LUMBAR MYELO 1 PHY Kenan Patel MD [address] [place] [address] Phone: tel: fax: Referral ID Status Reason Start Date Expiration Date Visits Re quested Visits Authorized [id number] Closed 02/12/2023 1 1 * Radiology Services (Routine) - Closed Specialty Diagnoses / Procedures Referred By Contac t Referred To Contact Radiology Diagnoses Lumbar radiculopathy Low back pain, unspecified back pain laterality, unspecified chronicity, unspecified whether sciatica present Procedures CT LUMBAR SPINE W CONTRAST Kenan Patel MD [address] [place] [address] Phone: tel: fax: Referral ID Status Reason Start Date Expiration Date Visits Re quested Visits Authorized [id number] Closed 02/12/2023 1 1 Encounter Details Date Type Department Care Team (Latest Contact Info) Description 02/12/2023 Transcribe Orders [facility] [address] [place] [address] Kenan Patel MD [address] [place] [address] Lumbar radiculopathy (Primary Dx); Low back pain, unspecified back pain laterality, unspecified chronicity, unspecified whether sciatica present Social History Tobacco Use Types Packs/Day Years Used Date Smoking Tobacco: Never Smokeless Tobacco: Never Alcohol Use Standard Drinks/Week Comments Yes 0 (1 standard drink = 0.6 oz pur e alcohol) Sex and Gender Information Value Date Recorded Sex Assigned at Not on file Legal Sex Male 10:09 PM CDT Gender Identity Not on file Sexual Orientation Not on file documented as of this encounter Plan of Treatment Not on file documented as of this encounter Results * CT LUMBAR SPINE W CONTRAST (02/21/2023 9:50 AM CDT) Anatomical Region Laterality Modality Spine N/A Computed Tomogra phy 02/21/2023 12:3 8 PM CDT Impressions 02/21/2023 12:41 PM CDT IMPRESSION: ?? Posterior lumbar instrumented fusion spanning L2 through L5. ??Anterior fusion plate and screw stabilizing L5-S1 which appears solid without spinal stenosis or foraminal narrowing. ?? Continued visualization of the disc spaces at L2-3 through L4-5 without high-grade osseous spinal stenosis or neural foraminal stenosis.. ??Please correlate with clinical factors. ??MRI may be beneficial if indicated clinically. Narrative 02/21/2023 12:41 PM CDT EXAM DESCRIPTION: ?? CT LUMBAR SPINE W CONTRAST REASON FOR STUDY: ?? Radiculopathy, lumbar region TECHNIQUE: Axial images acquired through the lumbar spine with intravenous contrast. ??Reconstructed coronal and sagittal MPR images reviewed. ??All images stored on PACS. Automated exposure control was used as a dose optimization technique for this examination. CONTRAST TYPE/DOSE: Myelographic contrast injected intrathecally. ?? Please correlate with procedural note. COMPARISON: ?? Lumbar myelogram plain films 02/21/2023. FINDINGS: SEGMENTATION: ?? No transitional anatomy. The lowest well-developed disc space is labeled L5-S1. ALIGNMENT: ?? Normal. VERTEBRAE: ?? No fracture. ??There is contrast in the thecal sac post myelography. ??Vertebral body height well-maintained. DISC HEIGHT: ?? Well-maintained. HARDWARE: ?? Hardware incompletely visualized on the myelographic plain films. ??Would suggest routine lumbar series to assess the hardware. ??Within limitation, the spinal rods, pedicle screws and anterior plate and screw stabilization hardware appears intact. ?? Interbody fusions are visualized at L2-3 L3-4 L4-5 levels. ?? Interbody graft markers at L5-S1 evident.. INDIVIDUAL DISC LEVELS: L1-2: ?? Minimal bulge with bilateral facet arthritis. ??Mild spinal stenosis. ??No foraminal stenosis. L2-3: ?? Interbody fusion with posterior lumbar instrumented fusion and pedicle screws. ??Posterior laminectomy. ??No spinal stenosis or foraminal stenosis. L3-4: ?? Posterior laminectomy with interbody and posterior lumbar instrumented fusion hardware. L4-5: ?? Laminectomy. ??Mild posterior endplate spurs. ??No significant central canal stenosis. ??Mild osseous foraminal narrowing due to lateral endplate osteophytes. L5-S1: ?? Anterior stabilization plate with screws and interbody fusion which appears solid through the disc space. ??No spinal stenosis or foraminal stenosis. VISUALIZED RIBS: ?? No fractures. SOFT TISSUES: ?? No significant or acute finding in adjacent soft tissues. OTHER: ?? No other significant finding. THIS IS AN ELECTRONICALLY VERIFIED FINAL REPORT 02/21/2023 12:38 PM - Electronically signed by ??Candelario Campo M.D. LC: ONEAL D: ??02/21/2023 12:38 PM T: ??02/21/2023 12:38 PM Report ID: [id number] Reading Location: ??[id number] Procedure Note Winter Campo MD - 02/21/2023 EXAM DESCRIPTION: CT LUMBAR SPINE W CONTRAST REASON FOR STUDY: Radiculopathy, lumbar region TECHNIQUE: Axial images acquired through the lumbar spine with intravenous contrast. Reconstructed coronal and sagittal MPR images reviewed. All images stored on PACS. Automated exposure control was used as a dose optimization technique for this examination. CONTRAST TYPE/DOSE: Myelographic contrast injected intrathecally. Please correlate with procedural note. COMPARISON: Lumbar myelogram plain films 02/21/2023. FINDINGS: SEGMENTATION: No transitional anatomy. The lowest well-developed disc space is labeled L5-S1. ALIGNMENT: Normal. VERTEBRAE: No fracture. There is contrast in the thecal sac post myelography. Vertebral body height well-maintained. DISC HEIGHT: Well-maintained. HARDWARE: Hardware incompletely visualized on the myelographic plain films. Would suggest routine lumbar series to assess the hardware. Within limitation, the spinal rods, pedicle screws and anterior plate and screw stabilization hardware appears intact. Interbody fusions are visualized at L2-3 L3-4 L4-5 levels. Interbody graft markers at L5-S1 evident.. INDIVIDUAL DISC LEVELS: L1-2: Minimal bulge with bilateral facet arthritis. Mild spinal stenosis. No foraminal stenosis. L2-3: Interbody fusion with posterior lumbar instrumented fusion and pedicle screws. Posterior laminectomy. No spinal stenosis or foraminal stenosis. L3-4: Posterior laminectomy with interbody and posterior lumbar instrumented fusion hardware. L4-5: Laminectomy. Mild posterior endplate spurs. No significant central canal stenosis. Mild osseous foraminal narrowing due to lateral endplate osteophytes. L5-S1: Anterior stabilization plate with screws and interbody fusion which appears solid through the disc space. No spinal stenosis or foraminal stenosis. VISUALIZED RIBS: No fractures. SOFT TISSUES: No significant or acute finding in adjacent soft tissues. OTHER: No other significant finding. THIS IS AN ELECTRONICALLY VERIFIED FINAL REPORT 02/21/2023 12:38 PM - Electronically signed by Candelario Campo M.D. LC: ONEAL Report ID: [id number] Reading Location: [place] [address] IMPRESSION: Posterior lumbar instrumented fusion spanning L2 through L5. Anterior fusion plate and screw stabilizing L5-S1 which appears solid without spinal stenosis or foraminal narrowing. Continued visualization of the disc spaces at L2-3 through L4-5 without high-grade osseous spinal stenosis or neural foraminal stenosis.. Please correlate with clinical factors. MRI may be beneficial if indicated clinically. us Kenan Patel MD IMG CT ORDERABLES Final Re sult * XR LUMBAR MYELO 1 PHY (02/21/2023 9:47 AM CDT) Anatomical Region Laterality Modality Spine, L-spine N/A Radio Fluoroscop y 02/21/2023 10:3 5 AM CDT Impressions 02/21/2023 11:09 AM CDT IMPRESSION: ?? Lumbar ??Myelogram performed for CT Myelography. ?? Please refer to the report of the CT Myelogram for detailed diagnostic evaluation. Narrative 02/21/2023 11:09 AM CDT EXAM DESCRIPTION: ?XR LUMBAR MYELO 1 PHY REASON FOR STUDY: ?? Radiculopathy, lumbar region COMPARISON: None available RADIATION DOSE: Dose: ??525 ?? uGym2 Dose Area Product (DAP) TECHNIQUE: Fluoroscopic guided ?? SPINE ??myelogram. PROCEDURE: After fluoroscopic localization, sterile skin prep was performed with ?? Betadine . ??Local Anesthesia performed with 1% Lidocaine. Using fluoroscopic guidance, a ?? 22 -gauge spinal needle was advanced to the thecal sac via paracentral approach at the ?? L4-5 ??level. ??Position confirmed with return of CSF. ??Needle placement was documented with fluoroscopic images. At this point, ?? 9 ??cc's of ?? Isovue 200 M ??myelographic contrast was injected under fluoroscopic monitoring without complication. Needle was removed and a bandage applied. No post procedural neurologic changes or complications. ??Patient sent to CT scan for additional imaging. ??Discharge instructions were provided. Estimated blood loss: ??<5 ??mL FINDINGS: Contrast is present in the thecal sac. ??There is posterior decompression and lumbar fusion involving the lower lumbar spine to the sacrum. THIS IS AN ELECTRONICALLY VERIFIED FINAL REPORT 02/21/2023 10:35 AM - Electronically signed by ??Miguel Mchugh M.D. KN: SOL D: ??02/21/2023 10:35 AM T: ??02/21/2023 10:35 AM Report ID: [id number] Reading Location: ??[id number] Procedure Note Miguel Mchugh MD - 02/21/2023 EXAM DESCRIPTION: XR LUMBAR MYELO 1 PHY REASON FOR STUDY: Radiculopathy, lumbar region COMPARISON: None available RADIATION DOSE: Dose: 525 uGym2 Dose Area Product (DAP) TECHNIQUE: Fluoroscopic guided SPINE myelogram. PROCEDURE: After fluoroscopic localization, sterile skin prep was performed with Betadine . Local Anesthesia performed with 1% Lidocaine. Using fluoroscopic guidance, a 22 -gauge spinal needle was advanced to the thecal sac via paracentral approach at the L4-5 level. Position confirmed with return of CSF. Needle placement was documented with fluoroscopic images. At this point, 9 cc's of Isovue 200 M myelographic contrast was injected under fluoroscopic monitoring without complication. Needle was removed and a bandage applied. No post procedural neurologic changes or complications. Patient sent to CT scan for additional imaging. Discharge instructions were provided. Estimated blood loss: <5 mL FINDINGS: Contrast is present in the thecal sac. There is posterior decompression and lumbar fusion involving the lower lumbar spine to the sacrum. THIS IS AN ELECTRONICALLY VERIFIED FINAL REPORT 02/21/2023 10:35 AM - Electronically signed by Miguel Mchugh M.D. KN: SOL Report ID: [id number] Reading Location: [id number] IMPRESSION: Lumbar Myelogram performed for CT Myelography. Please refer to the report of the CT Myelogram for detailed diagnostic evaluation. Kenan Patel MD Arjun DIAGNOSTIC ORDERABLES Final Result documented in this encounter Visit Diagnoses Diagnosis Lumbar radiculopathy- Primary Thoracic or lumbosacral neuritis or radiculitis, unspecified Low back pain, unspecified back pain laterality, unspecified chronicity, unspecified whether sciatica present Lumbar radiculopathy Thoracic or lumbosacral neuritis or radiculitis, unspecified Low back pain, unspecified back pain laterality, unspecified chronicity, unspecified whether sciatica present Lumbar radiculopathy Thoracic or lumbosacral neuritis or radiculitis, unspecified Low back pain, unspecified back pain laterality, unspecified chronicity, unspecified whether sciatica present documented in this encounter Care Teams Strategic Manager Relationship Specialty Start Date End Date Hai Pradhan MD [address] [place], [place] [id number] PCP - General Internal Medicine 02/18/23 documented as of this encounter
--- OUTSIDE RECORDS SUMMARY | 2024-11-24 10:07 | XMS_ITS | Encounter Summary ---
Author Organization [facility] Care Team Providers Care Earth Observations Chief Scientist Name Role Phone Hai Pradhan MD Primary Care Provider [phone] Encounter Details Date Type Department Care Team (Latest Contact Info) Description 02/18/2023 Travel Social History Tobacco Use Types Packs/Day [...] suspected to have Coronavirus/COVID-19? No / Unsure 02/18/2023 11:33 AM CDT documented as of this encounter Plan of Treatment Not on file documented as of this encounter Visit Diagnoses Not on filedocumented in this encounter Care Teams Earth Observations Chief Scientist Relationship Specialty Start Date End Date Hai Pradhan MD [address] [place] [address] PCP - General Internal Medicine 02/18/23 documented as of this encounter
--- OUTSIDE RECORDS SUMMARY | 2024-11-24 10:07 | XMS_ITS | Encounter Summary ---
Author Organization [facility] Address [address] [place] [address] Phone Care Team Providers Care Paper Coater Name Role Phone Hai Pradhan MD Primary Care Provider [phone] Reason for Visit * Auth/Cert (Routine) Specialty Diagnoses / Procedures Referred By Contac t Referred To Contact Diagnoses LOW BACK PAIN Procedures PRE / POST CARE FOR PROCEDURAL AREA Referral ID Status Reason Start Date Expiration Date Visits Re quested Visits Authorized [id number] 1 1 Encounter Details Date Type Department Care Team (Latest Contact Info) Description 02/21/2023 8:04 AM CDT - 02/21/2023 11:00 AM CDT Hospital Encounter [facility] Preop/Pacu II [address] [place] [address] Provider, Not On File Kenan Joya MD [address] [place] [address] Discharge Disposition: Discharged to home or Selfcare [...] videos and all your education online visit, [email or web address] or scan this QR code with your [...] including vitamins, herbs, eye drops, creams, and vjjh-kcc-[id number] medicines. Any problems you or family members [...] told by your health care provider. Take [id number]-[id number] and prescription medicines only as told by [...] Document Released: 07/04/2005Document Revised: 2Document Reviewed: 01/21/2020 [employer] Patient Education ? 2022 [employer] documented in this encounter Plan of Treatment Not on file documented as of this encounter Procedures Procedure Name Priority Date/Time Associated Diagnosis Comments PRE / POST CARE FOR PROCEDURAL AREA 02/21/2023 9:00 AM CDT LOW BACK PAIN documented in this encounter Visit Diagnoses Not on filedocumented in this encounter Care Teams Paper Coater Relationship Specialty Start Date End Date Hai Pradhan MD [address] [place] [address] PCP - General Internal Medicine 02/18/23 documented as of this encounter
--- OUTSIDE RECORDS SUMMARY | 2024-11-24 10:07 | XMS_ITS | Encounter Summary ---
Author Organization [facility] Address [address] [place] [address] Phone Care Team Providers Care Embossing Machine Operator Helper Name Role Phone Hai Pradhan MD Primary Care Provider [phone] Reason for Referral * Radiology Services (Routine) - Closed Specialty Diagnoses / Procedures Referred By Contac t Referred To Contact Radiology Diagnoses Lumbar radiculopathy Low back pain, unspecified back pain laterality, unspecified chronicity, unspecified whether sciatica present Procedures XR LUMBAR MYELO 1 PHY PC PAIN CONSULT XR LUMBAR MYELO 1 PHY Kenan Patel MD [address] [place] [address] Phone: tel: fax: Referral ID Status Reason Start Date Expiration Date Visits Re quested Visits Authorized [id number] Closed 02/12/2023 1 1 Reason for Visit * Auth/Cert (Routine) Specialty Diagnoses / Procedures Referred By Contac t Referred To Contact Diagnoses LOW BACK PAIN Procedures PRE / POST CARE FOR PROCEDURAL AREA Referral ID Status Reason Start Date Expiration Date Visits Re quested Visits Authorized [id number] 1 1 Encounter Details Date Type Department Care Team (Late st Contact Info) Description 02/21/2023 8:54 AM CDT - 02/21/2023 9:32 AM CDT Hospital Encounter [facility] [address] [place] [address] Kenan Patel MD [address] [place] [address] Provider, Anesthesiologist Discharge Disposition: Discharged to home or Selfcare [...] AM CDT documented as of this encounter Medications at Time of Discharge DULoxetine (CYMBALTA) [address] Particles TAKE 1 CAP BY MOUTH DAILY. 90 Cap 10/21/2017 losartan (COZAAR) 100 MG Tablet Take 100 mg by mouth. 10/23/2021 documented as of this encounter Plan of Treatment Not on file documented as of this encounter Procedures Procedure Name Priority Date/Time Associated Diagnosis Comments XR LUMBAR MYELO 1 PHY Routine 02/21/2023 9:47 AM CDT Lumbar radiculopathy Low back pain, unspecified back pain laterality, unspecified chronicity, unspecified whether sciatica present documented in this encounter Results * XR LUMBAR MYELO 1 PHY (02/21/2023 [...] AM T: ??02/21/2023 10:35 AM Report ID: [id number] Reading Location: ??[id number] Procedure Note Miguel Mchugh MD - 02/21/2023 [...] Miguel Mchugh M.D. KN: SOL Report ID: [id number] Reading Location: [place] [address] IMPRESSION: Lumbar Myelogram performed for CT Myelography. Please refer to the report of the CT Myelogram for detailed diagnostic evaluation. us Kenan Patel MD IMG DIAGNOSTIC ORDERABLES Final Result documented in this encounter Visit Diagnoses Diagnosis Lumbar radiculopathy Thoracic or lumbosacral neuritis or radiculitis, unspecified Low back pain, unspecified back pain laterality, unspecified chronicity, unspecified whether sciatica present documented in this encounter Administered Medications Inactive Administered Medications - up to 3 most recent administrations Medication Order MAR Action Action Date Dose Rate Site iopamidol 41 % SOLN 20 mL 20 mL, Intrathecal, ONCE, 1 dose, On [place] 02/21/23 at 0900 Given 02/21/2023 9:30 AM CDT 20 mL lidocaine (PF) 1 % injection 10 mL 10 mL, Injection, ONCE, 1 dose, On [place] 02/21/23 at 0900 Given 02/21/2023 9:00 AM CDT 10 mL documented in this encounter Care Teams Embossing Machine Operator Helper Relationship Specialty Start Date End Date Hai Pradhan MD [address] [place] [address] PCP - General Internal Medicine 02/18/23 documented as of this encounter
--- OUTSIDE RECORDS SUMMARY | 2024-11-24 10:07 | XMS_ITS | Encounter Summary ---
Author Organization [facility] Address [address] [place] [address] Phone Care Team Providers Care Statistical Programmer Analyst Name Role Phone Hai Pradhan MD Primary Care Provider [phone] Reason for Referral * Radiology Services (Routine) - Closed Specialty Diagnoses / Procedures Referred By Contac t Referred To Contact Radiology Diagnoses Lumbar radiculopathy Low back pain, unspecified back pain laterality, unspecified chronicity, unspecified whether sciatica present Procedures CT LUMBAR SPINE W CONTRAST Kenan Patel MD [address] [place] [address] Phone: tel: fax:[phone] Referral ID Status Reason Start Date Expiration Date Visits Re quested Visits Authorized [id number] Closed 02/12/2023 1 1 Reason for Visit * Auth/Cert (Routine) Specialty Diagnoses / Procedures Referred By Contac t Referred To Contact Diagnoses LOW BACK PAIN Procedures PRE / POST CARE FOR PROCEDURAL AREA Referral ID Status Reason Start Date Expiration Date Visits Re quested Visits Authorized [id number] 1 1 Encounter Details Date Type Department Care Team (Late st Contact Info) Description 02/21/2023 9:33 AM CDT - 02/21/2023 11:59 PM CDT Hospital Encounter [facility] CT [address] [place] [address] Kenan Patel MD [address] [place] [address] Provider, Anesthesiologist Discharge Disposition: Discharged to home [...] Procedure Name Priority Date/Time Associated Diagnosis Comments CT LUMBAR SPINE W CONTRAST Routine 02/21/2023 9:50 AM CDT Lumbar radiculopathy Low back pain, unspecified back pain laterality, unspecified chronicity, unspecified whether sciatica present documented in this encounter Results * CT LUMBAR SPINE [...] PM T: ??02/21/2023 12:38 PM Report ID: [id number] Reading Location: ??[id number] Procedure Note Winter Campo MD - 02/21/2023 [...] Candelario Campo M.D. LC: ONEAL Report ID: [id number] Reading Location: [id number] IMPRESSION: Posterior lumbar instrumented fusion spanning L2 [...] MD IMG CT ORDERABLES Final Re sult documented in this encounter Visit Diagnoses Diagnosis Lumbar radiculopathy Thoracic or lumbosacral neuritis or radiculitis, unspecified Low back pain, unspecified back pain laterality, unspecified chronicity, unspecified whether sciatica present documented in this encounter Care Teams Statistical Programmer Analyst Relationship Specialty Start Date End Date Hai Pradhan MD [address] [place] [address] PCP - General Internal Medicine 02/18/23 documented as of this encounter
--- OUTSIDE RECORDS SUMMARY | 2024-11-24 10:07 | XMS_ITS | Encounter Summary ---
Author Organization [facility] Care Team Providers Care Sheet Metal Erector Name Role Phone Shonda aCrlton PAC Primary Care Pro vider Encounter Details Date Type Department Care Team (Latest Contact Info) Description 10/13/2020 Travel Social History Tobacco Use Types Packs/Day [...] Coronavirus / COVID-19? Yes 10/13/2020 10:34 AM HARD CANDY SPINNER documented as of this encounter Plan of Treatment Not on file documented as of this encounter Visit Diagnoses Not on filedocumented in this encounter Care Teams Sheet Metal Erector Relationship Specialty Start Date End Date Shonda Carlton, AIMEE [address] [place] [address] PCP - General Physician Brand Coordinator 07/17/17 02/20/22 documented as of this encounter
--- OUTSIDE RECORDS SUMMARY | 2024-11-24 10:07 | XMS_ITS | Encounter Summary ---
Author Organization [facility] Address [address] 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 Name Role Phone Unavailable Primary Care Provider Unavailabl e Encounter Details Date Type Department Care Team (Late st Contact Info) Description 02/13/2023 Transcribe Orders [facility] [address] [place] [address] Miguel Mchugh MD [address] [place] [address] Low back pain, unspecified back pain laterality, unspecified chronicity, unspecified whether sciatica present (Primary Dx); Lumbar radiculopathy; Pre-procedural laboratory examinations; Encounter for therapeutic drug monitoring; Other chcf (current) drug therapy Social History Tobacco Use Types Packs/Day Years [...] documented as of this encounter Results * APTT (PTT) (02/18/2023 11:46 AM CDT) PTT 27 24 - 36 sec 02/18/2023 12:13 PM CDT [facility] Blood Venipuncture / Unknown 02/18/2023 11:46 AM CDT 02/18/2023 11:55 AM CDT Narrative [facility] - 02/18/2023 12:13 PM CDT Therapeutic range for unfractionated heparin at 0.3-0.7 U/mL is an aPTT value in the range of 71-100 seconds. Critical value for the PTT test is >= 122 seconds. Miguel Mchugh MD HEMATOLOGY ORDERABLES Final Result Performing Organization Address [facility] Co de Phone Number [facility] [address] [place] [address] * PROTIME (PT) (PROTHROMBIN TIME) (02/18/2023 11:46 AM CDT) PROTIME-PATIENT 12.6 11.6 - 14.8 sec 02/18/2023 12:13 PM CDT [facility] INR 0.9 0.9 - 1.2 02/18/2023 12:13 PM CDT [facility] Comment: Therapeutic Ranges INR = 2.0-3.0: Venous thromb, atrial fib, pul embolism, tissue heart valve, ami. INR = 2.5-3.5: Mechanical heart valve Critical value for INR is >/= 4.5 Blood Venipuncture / Unknown 02/18/2023 11:46 AM CDT 02/18/2023 11:55 AM CDT Miguel Mchugh MD HEMATOLOGY ORDERABLES Final Result Performing Organization Address [facility] Co de Phone Number [facility] [address] [place] [address] * (ABNORMAL) BASIC METABOLIC PANEL W/ CALCIUM TOTAL (02/18/2023 11:46 AM CDT) Pathologist [facility] SODIUM 136 136 - 144 mmol/L 02/18/2023 12:19 PM CDT [facility] POTASSIUM 3.8 3.5 - 5.1 mmol/L 02/18/2023 12:19 PM CDT [facility] CHLORIDE 100 100 - 110 mmol/L 02/18/2023 12:19 PM CDT [facility] CO2, VENOUS 24 22 - 32 mmol/L 02/18/2023 12:19 PM CDT [facility] ANION GAP 15.8 8.0 - 20.0 mmol/L 02/18/2023 12:19 PM CDT [facility] GLUCOSE 206(H) 70 - 99 mg/dL 02/18/2023 12:19 PM CDT [facility] BUN 16 6 - 20 mg/dL 02/18/2023 12:19 PM T [facility] CREATININE, BLOOD 1.18 0.80 - 1.30 mg/dL 02/18/2023 12:19 PM T [facility] BUN/CREATININE RATIO 14 12 - 20 ratio 02/18/2023 12:19 PM T [facility] CALCIUM 9.5 8.9 - 10.3 mg/dL 02/18/2023 12:19 PM T [facility] IS THE PATIENT REQUIRED TO BE FASTING? No 02/18/2023 12:19 PM CDT [facility] GFR, ESTIMATED >60 >=60 02/18/2023 12:19 PM T [facility] Comment: Creatinine Clearance is the preferred criteria for selecting drug dose adjustments in renally impaired patients. ??The GFR is provided as additional pertinent clinical information. GFR is reported in mL/min/1.73 sq m. Calculation based on the Chronic Kidney Disease Epidemiology Collaboration (CKD- EPI) equation refit without adjustment for race. GFR, EST. >60 >=60 023 12:19 PM CDT [facility] GFR, EST. NONAFRICAN >60 >=60 02/18/2023 12:19 PM T [facility] Blood Venipuncture / Unknown 02/18/2023 11:46 AM CDT 02/18/2023 11:55 AM CDT us Miguel Mchugh MD CHEMISTRY ORDERABLES Final Result [facility] [place] [address] documented in this encounter Visit Diagnoses Diagnosis Low back pain, unspecified back pain laterality, unspecified chronicity, unspecified whether sciatica present- Primary Lumbar radiculopathy Thoracic or lumbosacral neuritis or radiculitis, unspecified Pre-procedural laboratory examinations Pre-procedural laboratory examination Encounter for therapeutic drug monitoring Other manager long term care (current) drug therapy documented in this encounter
--- OUTSIDE RECORDS SUMMARY | 2024-11-24 10:08 | XMS_ITS | Encounter Summary ---
Author Organization [facility] Address [address] [place] [address] Care Team Providers Care Coremaker Experimental Name Role Phone Pascale Wolff MD Unavailable Rudi Patel MD Unavailable [phone] Hai Pradhan MD Primary Care Provider [phone] Reason for Referral * Sleep Medicine (Routine) - Closed Specialty Diagnoses / Procedures Referred By Monster blackwell Referred To Contact Diagnoses ERICH (obstructive sleep apnea) Procedures Portable/Home Sleep Study Pascale Wolff MD [address] [place] [address] DR GINO Kinc[address] [address] Phone: tel: fax: [address] [phone] Referral ID Status Reason Start Date Expiration Date Visits Re quested Visits Authorized [id number] Closed 09/04/2024 10/04/2025 1 1 Reason for Visit * Reason Comments Sleep Apnea New patient * Consultation (Routine) - Closed Specialty Diagnoses / Procedures Referred By Monster blackwell Referred To Contact Neurology Diagnoses ERICH (obstructive sleep apnea) Hai Pradhan MD Phone: tel: fax: Pascale Wolff MD [address] [place] [address] DR GINO Kincaid [address] [address] Phone: tel: fax: Referral ID Status Reason Start Date Expiration Date V isits Requested Visits Authorized [id number] Closed Specialty Services Required 06/18/2024 07/18/2025 1 1 Encounter Details Date Type Department Care Team (Lyn cameron Contact Info) Description 09/04/2024 10:30 AM CDT Office Visit [facility] [address] [facility] [address] [place] [address] Pascale Wolff MD [address] [facility] [address] [place] [address] Hypersomnia with sleep apnea (Primary Dx); ERICH (obstructive sleep apnea); Severe obesity (BMI 35.0-35.9 with comorbidity) ([facility]) Social History Tobacco Use Types Packs/Day Years Used Date Smoking Tobacco: Former Cigarettes 1 24 0 07/14/1990 - 06/25/2014 Smokeless Tobacco: Never Tobacco Cessation:Counseling Given: Not Answered Alcohol Use Standard Drinks/Week Comments No 0 (1 standard drink = 0.6 oz pur e alcohol) PHQ-2 Answer Date Recorded PHQ-2 Total Score (If total score is 3 or more points, staff should administer the PHQ-9) 0 07/22/2020 Personal Safety Answer Date Recorded Have you ever been in or are you currently in a harmful physical or emotional relationship or is someone making you feel afraid or unsafe? 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 Gender Identity Not on file Sexual Orientation Not on file documented as of this encounter Last Filed Vital Signs Vital Sign Reading Time Taken Comments Blood Pressure 150/83 09/04/2024 10:41 AM CDT Pulse 60 09/04/2024 10:41 AM CDT Temperature - - Respiratory Rate - - Oxygen Saturation 96% 09/04/2024 10: 41 AM CDT Inhaled Oxygen Concentration - - Weight 115.5 kg (254 lb 9.6 oz) 024 10:41 AM CDT Height 170.2 cm (5' 7 ) 09/04/2024 10:4 1 AM CDT Body Mass Index 39.88 09/04/2024 10:41 AM CDT documented in this encounter Progress Notes * Pascale Wolff MD - 09/04/2024 10:30 AM CDT Chief complaints: Snoring, unrefereshing sleep and hypersomnia HPI Mr. Sanchez presents for consultation. He has been requested seen by Dr. Pradhan, for opinion regardinghis above symptoms. He reports that he goes to bed at 11:00 p.m. and awakens at 7:00 a.m.. Takes 15minutes to fall asleep endorses loud snoring, awakening gasping for air, witnessed stoppage with while sleeping restless sleep. He also reports symptoms of vivid dreams. Denies symptoms of snoring sleep leg jerks, rotary engraver headaches, nighttime wheezing episodes of confusion, or taking medication to fall asleep. Awakens 2-3 times usually go to the restroom. Awakens with a perception of restful sleep. Does feel tired in the daytime [place] Sleepiness scale score is 8. Does not take daytime naps denies symptoms of cataplexy, hypnagogic hallucinations sleep paralysis. Patient has been established diagnosis of severe obstructive sleep apnea syndrome but his old machine was malfunctioning. Review of Systems Past Medical History: Diagnosis Date Abnormal findings on cardiac catheterization 12/13/2014 Mild CAD, mildly decreased LV systolic function. See report, [facility], Dr. Perry. Acute bacterial sinusitis 10/13/2019 See office note. Chronic obstructive pulmonary disease (HCC) 02/23/2010 COPD Community acquired pneumonia of right lower lobe of lung 10/10/2019 See office note. Treated empirically. COVID-19 08/15/2020 Diarrhea 11/13/2019 See office note, Stephie. Dysfunction of both eustachian tubes 09/29/2020 Resolved. Went to ER for OM, got Duricef. Hyperglycemia 08/25/2014 Elevated blood sugar Mild persistent asthma without complication 08/25/2012 Asthma/COPD, former smoker. Morbid obesity (HCC) 08/25/2013 Obesity Non morbid obesity 10/24/2018 Obesity Non-recurrent acute suppurative otitis media of right ear without spontaneous rupture of tympanic membrane 01/31/2020 See office note. Steatosis of liver 10/05/2014 Hepatic steatosis Tendonitis of elbow, right 12/05/2020 See office note, [facility]. Subsequent additional evaluations suggested mild right carpal tunnel syndrome, improved with conservative management. Social History Tobacco Use Smoking status: Former Current packs/day: 0.00 Average packs/day: 1 pack/day for 24.0 years (24.0 ttl pk-yrs) Types: Cigarettes Start date: 07/14/1990 Quit date: 06/25/2014 Years since quittin.2 Smokeless tobacco: Never Substance and Sexual Activity Drug use: No Sexual activity: None Alcohol Use: Not on file Family History Problem Relation Age of Onset Other Mother Age 67 alive and well.; Other Father Age 65 with unknow cancer.; Testicular cancer Father In his 40s Stomach cancer Father Kidney cancer Father Diabetes type II Paternal Grandmother Diabetes type II Paternal Grandfather BP 150/83 (BP Location: Left arm, Patient Position: Sitting) Pulse 60 Ht 170.2 cm (5' 7 ) Wt 115.5 kg (254 lb 9.6 oz) SpO2 96% BMI 39.88 kg/m?? Physical Exam Constitutional: Pleasant obese gentleman no distress HENT: Head: Normocephalic and atraumatic. Mouth/Throat: Oropharynx is clear and moist. Eyes: Conjunctivae and EOM are normal. eye exhibits no discharge. No scleral icterus. Neck: Normal range of motion. Neck supple. No thyromegaly present. Cardiovascular: Normal rate, regular rhythm and normal heart sounds. Exam reveals no gallop and no friction rub. No murmur heard. Pulmonary/Chest: Effort normal and breath sounds normal. No respiratory distress. has no wheezes. has no rales. Exhibits no tenderness. Abdominal: Soft. exhibits no distension and no mass. There is no tenderness. Musculoskeletal: Normal passive range of movements; no muscle tenderness Neurological: Alert and oriented to person, place, and time. No cranial nerve deficit. Exhibits normal muscle tone. Skin: Skin is warm. No rash noted. No erythema. Psychiatric: normal mood and affect. Judgment normal. Review of data: CT of the cervical spine from 08/30/2024: No acute fracture noted surgical anterior fusion C3 through C7 noted. CBC from 02/18/2023: WBC 7.9 hemoglobin 14.7, hematocrit 44.6 platelets of [id number] Progress notes from 08/30/2024 of ER visit with Dr. Dave was reviewed summer the report [id number] year with a history of hyperlipidemia Polysomnography pulmonary hypertension presenting for right-sided neck pain and shoulder pain has shoulder pain as well. Blood pressure 156/80. CT scan reveals evidence of postsurgical changes. No significant abnormality noted multi level central canal stenosis and neural foraminal stenosis noted. AP 1. Severe Obstructive sleep apnea: Endorses symptoms suggestive of obstructive sleep apnea syndrome. Has a prior diagnosis of severe sleep disorder breathing. Recommend a home sleep study reassess sleep disorder breathing The physiology of sleep disordered breathing and its increased association with hypertension, diabetes, heart arrhythmia, strokes, heart attacks, heart failure, hypersomnia, obesity and mood disorders was discussed. The patient will be set up with automatic positive therapy post sleep study. Optimize therapy with compliance download 2. Hypersomnia with sleep: Primarily from sleep fragmentation associated with uncontrolled sleep disordered breathing. Monitor response to therapy for the above. 3. Severe Obesity:The effects of obesity obstructive sleep apnea syndrome and other morbidities wasdiscussed. Recommended diet and exercise in losing weight. Patient verbalizes an understanding. documented in this encounter Plan of Treatment Not on file documented as of this encounter Results * Portable/Home Sleep Study (09/18/2024 2:30 PM CDT) Impressions Pascale Wolff MD - 09/18/2024 2:30 PM CDT Indication for study: Mr. Sanchez is a 53-year-old gentleman chief complaints of snoring, unrefreshing sleep and daytime fatigue and sleepiness. ??The patient's [place] Sleepiness scale score is 8 Vital statistics: Age: ??54 years ? BMI: 39.8 Procedure: Unless otherwise noted, respiratory events were scored in accordance with recommended parameters outlined in the AASM Manual for the Scoring of Sleep and Associated Events, Version 2.6 ??Hypopneas were scored in accordance with acceptable parameters as outline in Chapter IX, Part 1: HSAT utilizing Respiratory Flow and or Effort Parameters, Category H., Section 1b. ??This study was performed using a ResMed apnea ??Link portable monitoring unit, a type 3 portable monitoring device. ??Variable monitored included nasal/oral pressure transduced airflow( PTAF), single respiratory effort (thoracic belt), snoring (derived from PTAF sensor) and pulse oximetry. ?? Description of Polysomnography findings: ??The patient had 9 hours and 26 minutes of monitored time. ??9 hours and 14 minutes flow evaluation was present. ??9 hours and 15 minutes oxygen saturation analysis was present. The apnea-hypopnea index was 30. ??The AHI was 30.3 in the supine position. ??There were 196 obstructive apneas and 81 hypopneas recorded. ??Baseline oxygen saturation was 98%. ??Lowest oxygen saturation was 85%. ??Average oxygen saturation was 96%. ??There were 238 oxygen desaturation episodes recorded. ??The oxygen desaturation index was 25.7. Pulse evaluation revealed a maximum 106 beats per minute, minimum 46 beats per minute and averaging 55 beats per minute Impression: 1. Severe obstructive sleep apnea syndrome. ?? 2. Consider Positive Airway Pressure (PAP) devices such as continuous PAP (CPAP), auto-adjusting PAP (APAP), and bi-level PAP (Bi-PAP). 3. CPAP titration to determine optimal pressure required to alleviate sleep disordered breathing 4. Sleep hygiene should be reviewed to assess factors that may improve sleep quality. 5. Weight management and regular exercise should be initiated or continued 6. Avoid alcohol sedatives and other ASSISTANT GENERAL MANAGER depression that may worsen sleep apnea and disrupt normal sleep architecture 7. Patients with sleep apnea may have significant daytime hypersomnolence. If that is the case, driving or handling heavy machinery should be avoided until the apnea and excessive sleepiness have resolved. Limitations of the study: 1. A sleep EEG was not recorded; therefore, the actual amount of time spent in sleep, stages of sleep and respiratory events associated with arousals cannot be determined by this study. 2. All indexes are computed against monitoring time, not total sleep time. For this reason, the degree of severity may be underestimated 3. The severity of the sleep apnea may vary from night to night depending on body position during sleep, REM sleep and sleep efficiency. These factors should be taken into consideration. ?? Narrative Pascale Wolff MD - 09/18/2024 2:30 PM CDT OCST for review us Pascale Wolff MD [facility]EP [facility]ENTER ORDERABLES Final Re sult documented in this encounter Visit Diagnoses Diagnosis Hypersomnia with sleep apnea- Primary Hypersomnia with sleep apnea, unspecified ERICH (obstructive sleep apnea) Obstructive sleep apnea (adult) (pediatric) Severe obesity (BMI 35.0-35.9 with comorbidity) (HCC) ERICH (obstructive sleep apnea) Obstructive sleep apnea (adult) (pediatric) documented in this encounter Historical Medications * This list may reflect changes made after this encounter. pregabalin (LYRICA) 75 mg capsule Take 1 capsule (75 mg total) by mouth 09/02/2024 added in this encounter Orders Outpatient Referral Count Last Ordered Date Fir st Ordered Date AMB REFERRAL TO NEUROLOGY 1 09/04/2024 documented in this encounter Care Teams Coremaker Experimental Relationship Specialty Start Date End Date Hai Pradhan MD PCP - General Internal Medicine 09/20/22 Pascale Wolff MD Consulting Physician Sleep Medicine 12/06/19 Rudi Patel MD Resident Neurosurgery 06/08/21 documented as of this encounter
--- OUTSIDE RECORDS SUMMARY | 2024-11-24 10:08 | XMS_ITS | Encounter Summary ---
Author Organization [facility] Healthcare Address [address] [place] [address] Care Team Providers Care Office Workforce Planner Name Role Phone Pascale Wolff MD Unavailable Rudi Patel MD Unavailable [phone] Hai Pradhan MD Primary Care Provider [phone] Reason for Visit * Reason Comments Shoulder Pain Encounter Details Date Type Department Care Team (Late st Contact Info) Description 08/30/2024 5:13 AM CDT - 08/30/2024 8:07 AM CDT Emergency [facility] Emergency Department [address] [place] [address] Mega Dave MD [address] [address] Cervical radiculopathy (Primary Dx) Discharge Disposition: Discharge to home or self care Social History Tobacco Use Types Packs/Day Years Used Date Smoking Tobacco: Former Cigarettes 1 24 0 07/14/1990 - 06/25/2014 Smokeless Tobacco: Never Alcohol Use Standard Drinks/Week Comments No 0 [...] on file Legal Sex Male 9:12 AM [employer] Gender Identity Not on file Sexual Orientation Not on file documented as of this encounter Last Filed Vital Signs Vital Sign Reading Time Taken Comments Blood Pressure 145/87 08/30/2024 8:00 AM CDT Pulse 49 08/30/2024 8:00 AM CDT Temperature 36.4 ??C (97.5 ??F) 08/30/2024 5:11 AM CD T Respiratory Rate 18 08/30/2024 5:11 AM CDT Oxygen Saturation 95% 08/30/2024 8:00 AM CDT Inhaled Oxygen Concentration - - Weight 115.7 kg (255 lb) 08/30/2024 5:11 AM CDT Height 170.2 cm (5' 7 ) 08/30/2024 5:11 AM CDT Body Mass Index 39.94 08/30/2024 5:11 AM CDT documented in this encounter Discharge Instructions * Attachments The following attachments cannot be sent through Care Everywhere. * Radiculopathy, Cervical (Latvian) documented in this encounter Medications at Time of Discharge albuterol HFA (PROVENTIL HFA,VENTOLIN HFA,PROAIR HFA) 90 mcg/actuation inhalerIndicatio ns:Bronchospasm Prevention Inhale 2 puffs every 6 (six) hours as needed for wheezing 1 Inhaler 5 07/22/2020 aspirin 81 mg tablet Take 81 mg by mouth daily. azelastine (ASTELIN) 137 mcg (0.1 %) nasal sprayIndications :Dysfunction of both eustachian tubes Administer 1 spray into each nostril 2 (two) times a day Use in each nostril as directed 30 mL 5 10/03/2020 clindamycin (CLEOCIN) 300 mg capsule Take 1 capsule by mouth 3 (three) times a day as needed For dental infection 04/25/[address] (CYMBALTA) 60 mg capsuleIndicatio ns:Chronic midline low back pain without sciatica,Persist ent mood disorder (HCC) TAKE 1 CAPSULE (60 MG TOTAL) BY MOUTH DAILY 90 capsule 1 10/02/2021 fluticasone propionate (FLONASE) 50 mcg/actuation nasal sprayIndications :Allergic Rhinitis Administer 1 spray into each nostril daily 1 Inhaler 1 06/30/2021 ibuprofen (ADVIL,MOTRIN) 600 mg tablet Take 1 tablet (600 mg total) by mouth every 6 (six) hours as needed for pain 30 tablet 08/30/2024 multivitamin (MULTIPLE VITAMINS) tablet tablet take 1 by Oral route daily 0 0 09/06/2016 sildenafiL, pulm.hypertensio n, (REVATIO) 20 mg tabletIndication s:Erectile dysfunction. Take 1 tablet (20 mg total) by mouth daily as needed (Before sex) 60 tablet 3 07/22/2020 methylPREDNISolo ne (MEDROL DOSEPACK) 4 mg Dosepack Take as directed on package 1 packet 08/30/2024 4 documented as of this encounter Ordered Prescriptions Prescription Sig Dispense Quantity Refills Last Filled Start Date End Date ibuprofen (ADVIL,MOTRIN) 600 mg tablet Take 1 tablet (600 mg total) by mouth every 6 (six) hours as needed for pain 30 tablet 08/30/2024 ibuprofen (ADVIL,MOTRIN) 600 mg tablet Take 1 tablet (600 mg total) by mouth every 6 (six) hours as needed for pain 30 tablet 08/30/2024 4 methylPREDNISolone (MEDROL DOSEPACK) 4 mg Dosepack Take as directed on package 1 packet 08/30/2024 4 documented in this encounter Discharge Disposition Disposition Code Departure Means Destination Comment s Discharge to home or self care documented in this encounter ED Notes * Mega Dave MD - 08/30/2024 7:59 AM CDT HPI Chief Complaint Patient presents with Shoulder Pain 53-year-old with a history of hyperlipidemia, polycythemia, pulmonary hypertension here with a complaint of right added neck pain radiating into his shoulder and into his arm for past 4 days. Patientdenies any trauma or lifting any heavy objects. Pain at times is sharp and and shooting in nature. Denies any motor weakness. History of cervical fusion several years ago. No history of fever or chills. Patient History: Patient Active Problem List Diagnosis Date Noted Dyspnea 09/20/2022 Nasopharyngitis 06/19/2021 Acute pharyngitis due to other specified organisms 06/14/2021 Neck pain 06/08/2021 Mild carpal tunnel syndrome of right wrist 03/27/2021 Rectal bleeding 12/26/2020 Morbid obesity (HCC) 10/04/2020 Male erectile disorder 12/26/2019 Severe obstructive sleep apnea 11/19/2019 Verruca vulgaris 10/31/2019 Steatohepatitis, non-alcoholic 07/26/2019 Other fatigue 12/26/2018 Hyperlipidemia 10/22/2018 Polycythemia 06/07/2018 Hypertension 02/06/2018 Elevated serum creatinine 01/23/2015 Coronary artery disease without angina pectoris 12/13/2014 LV dysfunction 12/13/2014 Steatosis of liver 10/05/2014 Hyperglycemia 08/25/2014 Mild intermittent asthma without complication 08/25/2012 Chronic obstructive pulmonary disease (HCC) 02/23/2010 Low back pain 08/25/2007 Persistent mood disorder (CMS/HCC) 08/25/1996 Past Medical History: Diagnosis Date Abnormal findings on cardiac catheterization 12/13/2014 Mild CAD, mildly decreased LV systolic function. See report, [facility], Dr. Perry. Acute bacterial sinusitis 10/13/2019 See office note. Chronic obstructive pulmonary disease (CMS/HCC) (HCC) 02/23/2010 COPD Community acquired pneumonia of right lower lobe of lung 10/10/2019 See office note. Treated empirically. COVID-19 08/15/2020 Diarrhea 11/13/2019 See office note, Stephie. Dysfunction of both eustachian tubes 09/29/2020 Resolved. Went to ER for OM, got Duricef. Hyperglycemia 08/25/2014 Elevated blood sugar Mild persistent asthma without complication 08/25/2012 Asthma/COPD, former smoker. Morbid obesity (CMS/HCC) (HCC) 08/25/2013 Obesity Non morbid obesity 10/24/2018 Obesity Non-recurrent acute suppurative otitis media of right ear without spontaneous rupture of tympanic membrane 01/31/2020 See office note. Steatosis of liver 10/05/2014 Hepatic steatosis Tendonitis of elbow, right 12/05/2020 See office note, [facility]. Subsequent additional evaluations suggested mild right carpal tunnel syndrome, improved with conservative management. Past Surgical History: Procedure Laterality Date CARDIAC CATHETERIZATION Left 12/13/2014 Mild CAD, mildly diminished LVEF, Dr. Perry, [facility]. CARPAL TUNNEL RELEASE Bilateral 2013 Dr. Fajardo SHOULDER ARTHROSCOPY W/ SUBACROMIAL DECOMPRESSION AND DISTAL CLAVICLE EXCISION 2001 Dr. Henriquez. SPINAL FUSION 2009 L5-S1 Family History Problem Relation Age of Onset Other Mother Age 67 alive and well.; Other Father Age 65 with unknow cancer.; Testicular cancer Father In his 40s Stomach cancer Father Kidney cancer Father Diabetes type II Paternal Grandmother Diabetes type II Paternal Grandfather Social History Tobacco Use Smoking status: Former Current packs/day: 0.00 Average packs/day: 1 pack/day for 24.0 years (24.0 ttl pk-yrs) Types: Cigarettes Start date: 07/14/1990 Quit date: 06/25/2014 Years since quittin.1 Smokeless tobacco: Never Substance and Sexual Activity Alcohol use: No Drug use: No Sexual activity: Not on file Social History Social History Narrative Not on file Review of Systems Review of Systems Constitutional: Negative. HENT: Negative. Eyes: Negative. Respiratory: Negative. Cardiovascular: Negative. Endocrine: Negative. Musculoskeletal: Positive for neck pain. Skin: Negative. Neurological: Negative. Hematological: Negative. Psychiatric/Behavioral: Negative. Physical Exam ED Triage Vitals [08/30/24 0511] Temp Pulse Resp BP SpO2 36.4 ??C (97.5 ??F) 52 18 156/80 98 % Temp src Heart Rate Source Patient Position BP Location FiO2 (%) Temporal -- -- -- -- Height Height Method Weight Weight Method 1.702 m (5' 7 ) Stated 115.7 kg (255 lb) Stated Physical Exam Vitals and nursing note reviewed. Constitutional: Appearance: Normal appearance. HENT: Head: Normocephalic and atraumatic. Nose: Nose normal. Eyes: Pupils: Pupils are equal, round, and reactive to light. Pulmonary: Effort: Pulmonary effort is normal. Breath sounds: Normal breath sounds. Musculoskeletal: General: Normal range of motion. Skin: General: Skin is warm. Neurological: General: No focal deficit present. Mental Status: He is alert. Psychiatric: Mood and Affect: Mood normal. EXAM DESCRIPTION: CT CERVICAL SPINE WO CONTRAST REASON FOR STUDY: C-spine canal stenosis, Neck pain, acute, no red flags Cervical stenosis Neck pain TECHNIQUE: Axial images through the cervical spine with sagittal and coronal reformatted images. Automated exposure control was used as a dose optimization technique for this examination. COMPARISON: None. FINDINGS: SKULL BASE: The visualized intracranial structures and skull base appear unremarkable. PREVERTEBRAL SOFT TISSUES: The prevertebral soft tissues appear normal. HARDWARE: There is surgical anterior fusion hardware of the cervical spine extending from C3 through C7. ALIGNMENT: There is mild reversal of the normal cervical lordosis, centered at the C5-C6 level. There is no juliana or retrolisthesis. ATLANTOAXIAL JUNCTION: There is mild degenerative change of the anterior ring of C1 and its articulation with the dens. The anterior ring of C1, dens and clivus are otherwise in normal alignment. VERTEBRAE: The vertebral body heights are normal. The facet joints articulate normally. The spinous processes are intact. DISCS: There is disc fusion of C3-C4 through C6-C7. There is mild disc space narrowing at C2-C3. SPINAL CANAL/NEURAL FORAMINA: C2-C3: There is no significant bony central canal stenosis. No significant bony neural foraminal narrowing. C3-C4: There is mild bony central canal stenosis. There is moderate right and lnqk-ir-pgvqogdc left bony neural foraminal narrowing. C4-C5: There is moderate bony central canal stenosis. There is mild left but no significant right bony neural foraminal narrowing. C5-C6: There is moderate bony central canal stenosis. There is mild bilateral bony neural foraminal narrowing. C6-C7: There is vbnl-kx-oodzbosv bony central canal stenosis. There is ydqe-tf-cvrvrqke right and moderate left bony neural foraminal narrowing. C7-T1: There is no significant bony central canal stenosis. There is moderate right but no significant left bony neural foraminal narrowing. REMAINING BONES: No acute abnormality is seen of the visualized bones of the chest. LUNG APICES: The lung apices are clear. NECK SOFT TISSUES: The soft tissues appear unremarkable. OTHER: No other significant findings. IMPRESSION: No acute fracture or dislocation of the cervical spine. Surgical anterior fusion of C3 through C7. Multilevel bony central canal stenosis and bony neural foraminal narrowing as described above. THIS IS AN ELECTRONICALLY VERIFIED FINAL REPORT 08/30/2024 7:05 AM - Electro EXAM DESCRIPTION: XR SHOULDER RIGHT 2 OR MORE VIEWS REASON FOR STUDY: pain Pt c/o right shoulder pain since Saturday or Saturday. Pt believes it is a pinched nerve. Pt took 2 percocet approx 1.5 hrs ago. No hx of fx or dislocation Hx of surgery in the TECHNIQUE: Five radiographic views of the right shoulder . COMPARISON: None. FINDINGS: BONES: There is no cortical discontinuity or trabecular irregularity to suggest fracture. The bones are in normal alignment. SOFT TISSUES: The soft tissues are unremarkable. IMPRESSION: No acute MDM Medical Decision Making Amount and/or Complexity of Data Reviewed Radiology: ordered. Risk Prescription drug management. ED Course as of 08/30/24803 Time: 08/30 753 Comment: Informed pt about his CT and Xray findings , advised him to take meds as prescribed , follow with PMD. By: Mega Dave MD Final diagnoses: Cervical radiculopathy Mega Dave MD 08/30/24803 * Rubi Vaughn RN - 08/30/2024 5:10 AM CDT Pt c/o right shoulder pain since Saturday or Saturday. Pt believes it is a pinched nerve. Pt took 2 percocet approx 1.5 hrs ago. documented in this encounter Plan of Treatment Not on file documented as of this encounter Procedures Procedure Name Priority Date/Time Associated Diagnosis Comments CT CERVICAL SPINE WO CONTRAST ED 08/30/2024 6:47 AM CDT XR SHOULDER RIGHT 2 OR MORE VIEWS ED 08/30/2024 6:44 AM CDT documented in this encounter Results * CT Cervical Spine WO Contrast (08/30/2024 6:47 AM CDT) Anatomical Region Laterality Modality Spine N/A Computed Tomogra phy 08/30/2024 6:53 AM CDT Narrative 08/30/2024 7:05 AM CDT EXAM DESCRIPTION: ?? CT CERVICAL SPINE WO CONTRAST REASON FOR STUDY: ?? C-spine canal stenosis, Neck pain, acute, no red flags ?? Cervical stenosis ??Neck pain ?? TECHNIQUE: Axial images through the cervical spine with sagittal and coronal reformatted images. Automated exposure control was used as a dose optimization technique for this examination. COMPARISON: ?? None. FINDINGS: SKULL BASE: ??The visualized intracranial structures and skull base appear unremarkable. PREVERTEBRAL SOFT TISSUES: ??The prevertebral soft tissues appear normal. ?? HARDWARE: There is surgical anterior fusion hardware of the cervical spine extending from C3 through C7. ALIGNMENT: ?? There is mild reversal of the normal cervical lordosis, centered at the C5-C6 level. ?There is no juliana or retrolisthesis. ATLANTOAXIAL JUNCTION: ??There is mild degenerative change of the anterior ring of C1 and its articulation with the dens. The anterior ring of C1, dens and clivus are otherwise in normal alignment. VERTEBRAE: ?? The vertebral body heights are normal. ?? The facet joints articulate normally. ?? The spinous processes are intact. DISCS: ?? There is disc fusion of C3-C4 through C6-C7. ??There is mild disc space narrowing at C2-C3. SPINAL CANAL/NEURAL FORAMINA: C2-C3: There is ??no significant ??bony central canal stenosis. ??No significant ?? bony neural foraminal narrowing. C3-C4: There is ??mild ??bony central canal stenosis. ??There is moderate right and cuph-jd-rukadxnz left ??bony neural foraminal narrowing. C4-C5: There is ??moderate ??bony central canal stenosis. ??There is mild left but no significant right ??bony neural foraminal narrowing. C5-C6: There is ??moderate ??bony central canal stenosis. ??There is mild bilateral ??bony neural foraminal narrowing. C6-C7: There is ??wywi-yq-owdfvodu ??bony central canal stenosis. ??There is fvqg-gw-cyosfcgb right and moderate left ??bony neural foraminal narrowing. C7-T1: There is ??no significant ??bony central canal stenosis. ??There is moderate right but no significant left ??bony neural foraminal narrowing. ?? REMAINING BONES: ??No acute abnormality is seen of the visualized bones of the chest. LUNG APICES: ?? The lung apices are clear. NECK SOFT TISSUES: ?? The soft tissues appear unremarkable. OTHER: ?? No other significant findings. IMPRESSION: No acute fracture or dislocation of the cervical spine. Surgical anterior fusion of C3 through C7. Multilevel bony central canal stenosis and bony neural foraminal narrowing as described above. THIS IS AN ELECTRONICALLY VERIFIED FINAL REPORT 08/30/2024 7:05 AM - Electronically signed by ??Nichole Greenberg M.D. SN: D: ??08/30/2024 7:05 AM T: ??08/30/2024 7:05 AM Report ID: [id number] Reading Location: ??[id number] Procedure Note Nichole Greenberg MD - 08/30/2024 EXAM DESCRIPTION: CT CERVICAL SPINE WO CONTRAST REASON FOR STUDY: C-spine canal stenosis, Neck pain, acute, no red flags Cervical stenosis Neck pain TECHNIQUE: Axial images through the cervical spine with sagittal andcoronal reformatted images. Automated exposure control was used as a doseoptimization technique for this examination. COMPARISON: None. FINDINGS: SKULL BASE: The visualized intracranial structures and skull base appear unremarkable. PREVERTEBRAL SOFT TISSUES: The prevertebral soft tissues appear normal. HARDWARE: There is surgical anterior fusion hardware of the cervical spine extending from C3 through C7. ALIGNMENT: There is mild reversal of the normal cervical lordosis,centered at the C5-C6 level. There is no juliana or retrolisthesis. ATLANTOAXIAL JUNCTION: There is mild degenerative change of the anteriorring of C1 and its articulation with the dens. The anterior ring of C1, densand clivus are otherwise in normal alignment. VERTEBRAE: The vertebral body heights are normal. The facet joints articulate normally. The spinous processes are intact. DISCS: There is disc fusion of C3-C4 through C6-C7. There is mild disc space narrowing at C2-C3. SPINAL CANAL/NEURAL FORAMINA: C2-C3: There is no significant bony central canal stenosis. Nosignificant bony neural foraminal narrowing. C3-C4: There is mild bony central canal stenosis. There is moderateright and jpef-nj-nqbldiso left bony neural foraminal narrowing. C4-C5: There is moderate bony central canal stenosis. There is mildleft but no significant right bony neural foraminal narrowing. C5-C6: There is moderate bony central canal stenosis. There is mild bilateral bony neural foraminal narrowing. C6-C7: There is vsws-ax-eqennfts bony central canal stenosis. There is vnpx-gq-nusuvkoo right and moderate left bony neural foraminalnarrowing. C7-T1: There is no significant bony central canal stenosis. There is moderate right but no significant left bony neural foraminal narrowing. REMAINING BONES: No acute abnormality is seen of the visualized bones ofthe chest. LUNG APICES: The lung apices are clear. NECK SOFT TISSUES: The soft tissues appear unremarkable. OTHER: No other significant findings. IMPRESSION: No acute fracture or dislocation of the cervical spine. Surgical anterior fusion of C3 through C7. Multilevel bony central canal stenosis and bony neural foraminalnarrowing as described above. THIS IS AN ELECTRONICALLY VERIFIED FINAL REPORT 08/30/2024 7:05 AM - Electronically signed by Nichole Greenberg M.D. SN: SN Report ID: [id number] Reading Location: [place] [address] Mega Dave MD IMG CT PROCEDURES Final Result * XR Shoulder Right 2 or More Views (08/30/2024 6:44 AM CDT) Anatomical Region Laterality Modality Upper Extremities, Shoulder Right Comp uted Radiography 08/30/2024 6:53 AM CDT Narrative 08/30/2024 6:53 AM CDT EXAM DESCRIPTION: XR SHOULDER RIGHT 2 OR MORE VIEWS REASON FOR STUDY: pain ?? Pt c/o right shoulder pain since Saturday or Saturday. Pt believes it is a pinched nerve. Pt took 2 percocet approx 1.5 hrs ago. ?? No hx of fx or dislocation ??Hx of surgery in the s ?? TECHNIQUE: Five ??radiographic views of the ??right shoulder . COMPARISON: None. FINDINGS: BONES: ??There is no cortical discontinuity or trabecular irregularity to suggest fracture. ?? The bones are in normal alignment. SOFT TISSUES: ??The soft tissues are unremarkable. IMPRESSION: No acute osseous abnormality. THIS IS AN ELECTRONICALLY VERIFIED FINAL REPORT 08/30/2024 6:53 AM - Electronically signed by ??Nichole Greenberg M.D. SN: D: ??08/30/2024 6:53 AM T: ??08/30/2024 6:53 AM Report ID: [id number] Reading Location: ??[id number] Procedure Note Nichole Greenberg MD - 08/30/2024 EXAM DESCRIPTION: XR SHOULDER RIGHT 2 OR MORE VIEWS REASON FOR STUDY: pain Pt c/o right shoulder pain since Saturday or Saturday. Pt believes it is a pinched nerve. Pt took 2 percocet approx 1.5 hrs ago. No hx of fx or dislocation Hx of surgery in the TECHNIQUE: Five radiographic views of the right shoulder . COMPARISON: None. FINDINGS: BONES: There is no cortical discontinuity or trabecular irregularity to suggest fracture. The bones are in normal alignment. SOFT TISSUES: The soft tissues are unremarkable. IMPRESSION: No acute osseous abnormality. THIS IS AN ELECTRONICALLY VERIFIED FINAL REPORT 08/30/2024 6:53 AM - Electronically signed by Nichole Greenberg M.D. SN: Report ID: [id number] Reading Location: [id number] Mega Dave MD IMG XR PROCEDURES Final Result documented in this encounter Visit Diagnoses Diagnosis Cervical radiculopathy- Primary Brachial neuritis or radiculitis nos documented in this encounter Administered Medications Inactive Administered Medications - up to 3 most recent administrations Medication Order MAR Action Action Date Dose Rate Site ketorolac (TORADOL) 15 mg/mL injection 15 mg 15 mg, intramuscular, Once, On 08/30/24 at 0627, For 1 dose Given 08/30/2024 6:32 AM CDT 15 mg Right Deltoid predniSONE (DELTASONE) tablet 60 mg 60 mg, oral, Once, On 08/30/24 at 0627, For 1 dose Given 08/30/2024 6:32 AM CDT 60 mg documented in this encounter Discontinued Medications Medication Sig Discontinue Reason Start Date End Da te ibuprofen (ADVIL,MOTRIN) 600 mg tablet Take 1 tablet (600 mg total) by mouth every 6 (six) hours as needed for pain 08/30/2024 08/30/2024 documented as of this encounter Active and Recently Administered Medications Times are shown in CDT. Scheduled Medication Order 08/28/2024 08/29/2024 08/30/2024 ketorolac (TORADOL) 15 mg/mL injection 15 mg (COMPLETED) 15 mg, intramuscular, Once, On 08/30/24 at 0627, For 1 dose 0632 (Given - Provid er: Christen Goodman RN) predniSONE (DELTASONE) tablet 60 mg (COMPLETED) 60 mg, oral, Once, On 08/30/24 at 0627, For 1 dose 0632 (Given - Provid er: Christen Goodman RN) documented in this encounter Care Teams Office Workforce Planner Relationship Specialty Start Date End Date Hai Pradhan MD PCP - General Internal Medicine 09/20/22 Pascale Wolff MD Consulting Physician Sleep Medicine 12/06/19 Rudi Patel MD Resident Neurosurgery 06/08/21 documented as of this encounter
--- OUTSIDE RECORDS SUMMARY | 2024-11-24 10:08 | XMS_ITS | Encounter Summary ---
Author Organization [facility] Healthcare Address [address] [place] [address] Care Team Providers Care Body Specialist Name Role Phone Pascale Wolff MD Unavailable Rudi Patel MD Unavailable [phone] Hai Pradhan MD Primary Care Provider [phone] Encounter Details Date Type Department Care Team (Late st Contact Info) Description 09/20/2022 9:15 AM CDT [address] [address] Coronary artery disease without angina pectoris, unspecified vessel or lesion type, unspecified whether [place] or transplanted heart Social History Tobacco Use Types Packs/Day Years Used Date Smoking Tobacco: Former Cigarettes 1 24 0 07/14/1990 - 06/25/2014 Smokeless Tobacco: Never Alcohol Use Standard Drinks/Week Comments No 0 (1 standard drink = 0.6 oz pur e alcohol) PHQ-2 Answer Date Recorded PHQ-2 Total Score (If total score is 3 or more points, staff should administer the PHQ-9) 0 07/22/2020 Sex and Gender Information Value Date Recorded Sex Assigned at Not on file 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 Gender Identity Not on file Sexual Orientation Not on file documented as of this encounter Plan of Treatment Not on file documented as of this encounter Procedures Procedure Name Priority Date/Time Associated Diagnosis Comments HEMOGLOBIN A1C Routine 09/20/2022 9:20 AM CDT Coronary artery disease without angina pectoris, unspecified vessel or lesion type, unspecified whether [place] or transplanted heart LIPID PANEL Routine 09/20/2022 9:20 AM CDT Coronary artery disease without angina pectoris, unspecified vessel or lesion type, unspecified whether [place] or transplanted heart documented in this encounter Results * (ABNORMAL) Lipid panel (09/20/2022 9:20 AM CDT) Cholesterol 176 30 - 199 mg/dL NAYANA RED (MARY) Comment: Interpretive Data Ages < or = 19 years ??Acceptable: ? <170 mg/dL ??Borderline high: ??170-199 mg/dL ??High: ? >or= 200 mg/dL Ages > or = 20 years ??Desirable: ?<200 mg/dL ??Borderline high: ??200-239 mg/dL ??High: ? >or= 240 mg/dL Literature References: 1. Expert Panel on Integrated Guidelines for Cardiovascular Health and Risk Reduction in Children and Adolescents. Pediatrics 2011;128:S213 2. NCEP Expert Panel. Circulation 2004;110:227 Current Interpretive Data was last revised on 2018. Triglycerides 294(H) <=149 mg/dL NAYANA RED (MARY) Comment: Interpretive Data Ages < or = 9 years ??Acceptable: ? <75 mg/dL ??Borderline high: ??75-99 mg/dL ??High: ? >or= 100 mg/dL Ages 10 to 20 years ??Acceptable: ? <90 mg/dL ??Borderline high: ??90-129 mg/dL ??High: ? >or= 130 mg/dL Ages > or = 20 years ??Desirable: ?<150 mg/dL ??Borderline high: ??150-199 mg/dL ??High: ? 200-499 mg/dL ?Very high: ?? >or= 499 mg/dL Literature References: 1. Expert Panel on Integrated Guidelines for Cardiovascular Health and Risk Reduction in Children and Adolescents. Pediatrics 2011;128:S213 2. NCEP Expert Panel. Circulation 2004;110:227 Current Interpretive Data was last revised on 2018. HDL 36(L) >=40 mg/dL NAYANA RED (MARY) Comment: Interpretive Data Ages < or = 19 years ??Acceptable: ? >45 mg/dL ??Borderline low: ?? 40-45 mg/dL ??Low: ? <40 mg/dL Ages > or = 20 years ??Desirable: ?>or= 60 mg/dL ??Low: ? <40 mg/dL Literature References: 1. Expert Panel on Integrated Guidelines for Cardiovascular Health and Risk Reduction in Children and Adolescents. Pediatrics 2011;128:S213 2. NCEP Expert Panel. Circulation 2004;110:227 Current Interpretive Data was last revised on 2018. LDL, calculated 81 <=129 mg/dL NAYANA RED (MARY) Comment: Interpretive Data Ages < or = 19 years ??Acceptable: ? <110 mg/dL ??Borderline high: ??110-129 mg/dL ??High: ?>or= 130 mg/dL Ages > or = 20 years ??Optimal: ? <100 mg/dL ??Near optimal: ?100-129 mg/dL ??Borderline high: ?? 130-159 mg/dL ??High: ?>160 mg/dL Literature References: 1. Expert Panel on Integrated Guidelines for Cardiovascular Health and Risk Reduction in Children and Adolescents. Pediatrics 2011;128:S213 2. NCEP Expert Panel. Circulation 2004;110:227 Current Interpretive Data was last revised on 2018. Non-HDL Cholesterol 140 mg/dL [facility] (MARY) Comment: Interpretive Data Ages < or = 19 years ??Acceptable: ?<120 mg/dL ??Borderline high: ??120-144 mg/dL ??High: ?>145 mg/dL Ages > or = 20 years ??When triglycerides are >200 mg/dL, Non-HDL cholesterol is a secondary target of ? therapy with treatment goals that are 30 mg/dL greater than the LDL cholesterol target. ? Literature References: 1. Expert Panel on Integrated Guidelines for Cardiovascular Health and Risk Reduction in Children and Adolescents. Pediatrics 2011;128:S213 2. NCEP Expert Panel. Circulation 2004;110:227 Current Interpretive Data was last revised on 2018. Chol/HDL ratio 5 SANDY RED (MARY) Blood 09/20/2022 9:20 AM CDT 09/20/2022 11:59 AM CDT Mookie Esparza NP LAB BLOOD ORDERABLES Final R [place] Performing Organization Address [facility] de Phone Number NAYANA RED ([place]) [address] [facility] [place] [address] * (ABNORMAL) Hemoglobin A1c (09/20/2022 9:20 AM CDT) Hgb A1C 6.6(H) 4.0 - 5.6 % NAYANA RED (MARY) Estimated Average Glucose 143 mg/dL NAYANA RED (MARY) Comment: The ADA recommends reporting an estimated Average Glucose (eAG) with all Hemoglobin A1c results using the equation derived from a study of 507 normal and diabetic adults. ??Minority populations were underrepresented and children were not included. ?? (Diabetes Care 31:2504-5465, 2008). ??The eAG is not equivalent to a fasting glucose. Blood 09/20/2022 9:20 AM CDT 09/20/2022 11:59 AM CDT Mookie Esparza NP LAB BLOOD ORDERABLES Final R esult Performing Organization Address [facility] Co de Phone Number NAYANA RED ([place]) 1 [facility] [employer] [place] [address] documented in this encounter Visit Diagnoses Diagnosis Coronary artery disease without angina pectoris, unspecified vessel or lesion type, unspecified whether [place] or transplanted heart documented in this encounter Care Teams Body Specialist Relationship Specialty Start Date End Date Hai Pradhan MD PCP - General Internal Medicine 09/20/22 Pascale Wolff MD Consulting Physician Sleep Medicine 12/06/19 Rudi Patel MD Resident Neurosurgery 06/08/21 documented as of this encounter
--- OUTSIDE RECORDS SUMMARY | 2024-11-24 10:08 | XMS_ITS | Encounter Summary ---
Author Organization [facility] Healthcare Address [address] [place] [address] Care Team Providers Care Biomedical Engineering Technologist Name Role Phone Pascale Wolff MD Unavailable Rudi Patel MD Unavailable [phone] Hai Trejo MD Primary Care Provider [phone] Reason for Visit * Diagnostic Imaging (Routine) - Closed Specialty Diagnoses / Procedures Referred By Monster blackwell Referred To Contact Diagnoses Atypical chest pain Dyspnea, unspecified type Procedures NM MPI Spect (Rest And Stress) Multiple Studies Hai Trejo MD Phone: tel: fax: [address] [address] Referral ID Status Reason Start Date Expiration Date Visits Re quested Visits Authorized [id number] Closed 06/16/2024 07/16/2025 1 1 Encounter Details Date Type Department Care Team (Latest Contact Info) Description 07/13/2024 7:24 AM CDT - 07/13/2024 11:59 PM CDT Hospital Encounter [facility] [address] [place] [address] Discharge Disposition: Discharge to home or self [...] 0 07/22/2020 Personal Safety Answer Date Recorded Getting School Help Needed Not on file 01/13 Sex and Gender Information Value Date Recorded Sex Assigned at Not on file 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 Take 1 tablet (20 mg total) by mouth daily as needed (Before sex) 60 tablet 3 07/22/2020 documented as of this encounter Discharge Disposition Disposition Code Departure Means Destination Discharge to home or self care documented in this encounter Plan of Treatment Not on file documented as of this encounter Procedures Procedure Name Priority Date/Time Associated Diagnosis Comments STRESS TEST FOR DUAL READ Schedule Routine, Read Routine (OP Routine) 07/13/2024 9:12 AM CDT Atypical chest pain Dyspnea, unspecified type NM MPI SPECT (REST AND/OR STRESS) MULTIPLE STUDIES Schedule Routine, Read Routine (OP Routine) 07/13/2024 9:12 AM CDT Atypical chest pain Dyspnea, unspecified type documented in this encounter Results * Stress Test for Myocardial Perfusion (07/13/2024 9:12 AM CDT) Anatomical Region Laterality Modality Nuclear Medicine 07/13/2024 7:45 AM CDT Narrative 07/13/2024 9:11 AM CDT [address] [place] [address] Lexiscan Report Patient Name: JAVIER SANCHEZ R : 1970 Study Date: 07/13/2024 7:45:00 AM Gender: M Tech: luz bee Ref Provider: HAI TREJO Height(Cm): 170 BSA: 3.53 Weight(Kg): 264 ?Heart Rate: 143 Order Provider: HAI TREJO PROCEDURES: Pharmacologic SPECT Report.: Myocardial perfusion imaging with Sestamibi SPECT at rest and post regadenoson (Lexiscan) infusion. INDICATIONS: R07.89 Other chest pain, and R06.00 Dyspnea, unspecified. FINDINGS: Procedure Data: Resting HR 48 bpm. Peak HR: 85 bpm. Predicted Maximal HR 168 bpm. Target HR: 143 bpm. Percent Max Predicted HR Achieved: 50.60 %. Baseline BP: 106/60 mmHg. Peak BP: 147/62 mmHg. Exercise Time: 00:09. Medications: Medications None, aspirin, bumex, capoten, cardura, carvedilol (Coreg), clonidine, coumadin, cozaar, digoxin, diltiazem, diovan, hydrochlorothiazide, hytrin, isordil, lasix, lipitor, metoprolol, multaq, niacin, norvasc, potassium, pravachol, procardia, propanolol, rythmol, simvastatin, toprol, trandate, vasotec, verapamil, zaroxolyn, zocor and free text. Performed By: Supervising Physician: The Supervising Physician is carol ann silverio. Reason for Termination: Lexiscan protocol complete. Resting ECG: Sinus bradycardia, normal axis, inferolateral ST changes. Post Pharm ECG: No diagnostic ST changes. Arrhythmia: No arrhythmias seen. Cardiac Symptoms With Stress: Symptoms with stress were None. Exam Interpreted: Read by . CONCLUSIONS: 1. Negative Lexiscan pharmacologic stress test for chest pain or EKG changes. 2. Nuclear images are pending and they will be reported separately. Electronically Signed By: Dr Deion Perry 2024-07-13 09:11:06 CDT Procedure Note Deion Perry MD - 07/13/[address] [address] Lexiscan Report Patient Name: JAVIER SANCHEZ R : 1970 Study Date: 07/13/2024 7:45:00 AM Gender: M Tech: luz bee Ref Provider: HAI TREJO Height(Cm): 170 BSA: 3.53 Weight(Kg): 264 Heart Rate: 143 Order Provider: HAI TREJO PROCEDURES: Pharmacologic SPECT Report.: Myocardial perfusion imaging with Sestamibi SPECT at rest and postregadenoson (Lexiscan) infusion. INDICATIONS: R07.89 Other chest pain, and R06.00 Dyspnea, unspecified. FINDINGS: Procedure Data: Resting HR 48 bpm. Peak HR: 85 bpm. Predicted Maximal HR 168 bpm. TargetHR: 143 bpm. Percent Max Predicted HR Achieved: 50.60 %. Baseline BP: 106/60 mmHg. PeakBP: 147/62 mmHg. Exercise Time: 00:09. Medications: Medications None, aspirin, bumex, capoten, cardura, carvedilol (Coreg),clonidine, coumadin, cozaar, digoxin, diltiazem, diovan, hydrochlorothiazide, hytrin,isordil, lasix, lipitor, metoprolol, multaq, niacin, norvasc, potassium, pravachol,procardia, propanolol, rythmol, simvastatin, toprol, trandate, vasotec, verapamil,zaroxolyn, zocor and free text. Performed By: Supervising Physician: The Supervising Physician is carol ann silverio. Reason for Termination: Lexiscan protocol complete. Resting ECG: Sinus bradycardia, normal axis, inferolateral ST changes. Post Pharm ECG: No diagnostic ST changes. Arrhythmia: No arrhythmias seen. Cardiac Symptoms With Stress: Symptoms with stress were None. Exam Interpreted: Read by . CONCLUSIONS: 1. Negative Lexiscan pharmacologic stress test for chest pain or EKGchanges. 2. Nuclear images are pending and they will be reported separately. Electronically Signed By: Dr Deion Perry 2024-07-13 09:11:06 CDT Hai Trejo MD CV STRESS PROCEDURES Final Resu lt * NM MPI Spect (Rest And Stress) Multiple Studies (07/13/2024 9:12 AM CDT) Anatomical Region Laterality Modality Body N/A Nuclear Medicine 07/13/2024 11:3 7 AM CDT Narrative 07/13/2024 11:47 AM CDT EXAM DESCRIPTION: ?? NM MPI SPECT (REST AND/OR STRESS) MULTIPLE STUDIES REASON FOR STUDY: Atypical chest pain. RADIOPHARMACEUTICAL: Rest: ??10.1 ??mCi Tc-99m tetrofosmin Pharmacologic Stress: ??33.8 ??mCi Tc-99m tetrofosmin Injection site: ??Right arm ??IV site TECHNIQUE: Standard myocardial perfusion SPECT images were obtained after resting tracer injection. Subsequently, an intravenous infusion of 0.4 mg Lexiscan was performed. ??Standard myocardial perfusion images were obtained after tracer injection at the peak effect of the drug. COMPARISON: None FINDINGS: Image quality is adequate at rest and adequate at stress. Small area of mildly reduced perfusion in the distal anteroseptal region of the left ventricle at stress with normal perfusion at rest. ??There is also a small area of diminished perfusion in the basal lateral wall at both rest and stress. The left ventricular cavity size is ??borderline dilated. ??No transient ischemic dilatation . Gated tomographic images demonstrate normal wall motion and wall thickening with a left ventricular ejection fraction of ??57 % poststress (normal >45%). ?? IMPRESSION: Small reversible perfusion defect in the distal anteroseptal region of the left ventricle. Small area of mildly decreased perfusion in the basal lateral wall at both rest and stress may be artifactual or represent a prior infarct. ??No significant reversibility associated with the lateral wall. Normal left ventricular ejection fraction of ??57 % poststress. Borderline dilated left ventricle with normal wall motion. ?? THIS IS AN ELECTRONICALLY VERIFIED FINAL REPORT 07/13/2024 11:47 AM - Electronically signed by ??Ashok Keita M.D. LB: JR D: ??07/13/2024 11:47 AM T: ??07/13/2024 11:47 AM Report ID: [id number] Reading Location: ??[id number] Procedure Note Ashok Keita MD - 07/13/2024 EXAM DESCRIPTION: NM MPI SPECT (REST AND/OR STRESS) MULTIPLE STUDIES REASON FOR STUDY: Atypical chest pain. RADIOPHARMACEUTICAL: Rest: 10.1 mCi Tc-99m tetrofosmin Pharmacologic Stress: 33.8 mCi Tc-99m tetrofosmin Injection site: Right arm IV site TECHNIQUE: Standard myocardial perfusion SPECT images were obtained after resting tracer injection. Subsequently, an intravenous infusion of 0.4 mg Lexiscan was performed. Standard myocardial perfusion images wereobtained after tracer injection at the peak effect of the drug. COMPARISON: None FINDINGS: Image quality is adequate at rest and adequate at stress. Small area of mildly reduced perfusion in the distal anteroseptal regionof the left ventricle at stress with normal perfusion at rest. There is alsoa small area of diminished perfusion in the basal lateral wall at both restand stress. The left ventricular cavity size is borderline dilated. No transient ischemic dilatation . Gated tomographic images demonstrate normal wall motion and wallthickening with a left ventricular ejection fraction of 57 % poststress (normal>45%). IMPRESSION: Small reversible perfusion defect in the distal anteroseptal region ofthe left ventricle. Small area of mildly decreased perfusion in the basal lateral wall atboth rest and stress may be artifactual or represent a prior infarct. No significant reversibility associated with the lateral wall. Normal left ventricular ejection fraction of 57 % poststress. Borderline dilated left ventricle with normal wall motion. THIS IS AN ELECTRONICALLY VERIFIED FINAL REPORT 07/13/2024 11:47 AM - Electronically signed by Ashok Keita M.D. LB: JR Report ID: [id number] Reading Location: [id number] Hai Trejo MD IMG NM PROCEDURES Final Result documented in this encounter Visit Diagnoses Not on filedocumented in this encounter Care Teams Biomedical Engineering Technologist Relationship Specialty Start Date End Date Hai Trejo MD PCP - General Internal Medicine 09/20/22 Pascale Wolff MD Consulting Physician Sleep Medicine 12/06/19 Rudi Patel MD Resident Neurosurgery 06/08/21 documented as of this encounter
--- OUTSIDE RECORDS SUMMARY | 2024-11-24 10:08 | XMS_ITS | Referral Summary ---
Author Organization [facility] [address] Address [address] [place] [address] Phone Care Team Providers Care Scalehouse Attendant Name Role Phone Pascale Wolff MD Unavailable Rudi Patel MD Unavailable [phone] Hai Pradhan MD Primary Care Provider [phone] Encounters Date Type Department Care Team Description 11/09/2024 8:10 AM PASSENGER FLAGMAN - 11/09/2024 11:59 PM PASSENGER FLAGMAN Hospital Encounter [facility] Neurological Disorders Testing [address] [place] [address] Numbness and tingling of right hand [R20.0, R20.2] (Primary Dx); Cubital tunnel syndrome on right Discharge Disposition: Discharge to home or self care 09/17/2024 Telephone [facility] [address] [address], [address] [place] [address] Katy Ellis RN PMC INtake Assessment 09/17/2024 11:00 AM CDT - 09/17/2024 11:59 PM CDT Hospital Encounter [facility] [address] [place] [address] ERICH (obstructive sleep apnea) Discharge Disposition: Discharge to home or self care 09/04/2024 10:30 AM CDT Office Visit [facility] [address] [facility] [address] [place] [address] Pascale Wolff MD Hypersomnia with sleep apnea (Primary Dx); ERICH (obstructive sleep apnea); Severe obesity (BMI 35.0-35.9 with comorbidity) ([facility]) 08/30/2024 5:13 AM CDT - 08/30/2024 8:07 AM CDT Emergency [facility] Emergency Department [address] [place] [address] Mega Dave MD Cervical radiculopathy (Primary Dx) Discharge Disposition: Discharge to home or self care from Last 3 Months Allergies Active Allergy Reactions Criticality Noted Date Comments Hydrocodone Stomach upset Low 10/25/2020 Penicillins Rash Medium 05/25/2010 Red itchy rash a day or two after starting it. Medications multivitamin (MULTIPLE VITAMINS) tablet tablet take 1 by Oral route daily 0 0 6 Active aspirin 81 mg tablet Take 81 mg by mouth daily. Active albuterol HFA (PROVENTIL HFA,VENTOLIN HFA,PROAIR HFA) 90 mcg/actuation inhalerIndicatio ns:Bronchospasm Prevention Inhale 2 puffs every 6 (six) hours as needed for wheezing 1 Inhaler 5 0 Active sildenafiL, pulm.hypertensio n, (REVATIO) 20 mg tabletIndication s:Erectile dysfunction. Take 1 tablet (20 mg total) by mouth daily as needed (Before sex) 60 tablet 3 0 Active Additional Information Patient not taking.Reported on 09/20/2022 azelastine (ASTELIN) 137 mcg (0.1 %) nasal sprayIndications :Dysfunction of both eustachian tubes Administer 1 spray into each nostril 2 (two) times a day Use in each nostril as directed 30 mL 5 0 Active Additional Information Patient not taking.Reported on 09/20/2022 clindamycin (CLEOCIN) 300 mg capsule Take 1 capsule by mouth 3 (three) times a day as needed For dental infection 0 Active fluticasone propionate (FLONASE) 50 mcg/actuation nasal sprayIndications :Allergic Rhinitis Administer 1 spray into each nostril daily 1 Inhaler 1 1 Active Additional Information Patient not taking.Reported on 09/20/[address] (CYMBALTA) 60 mg capsuleIndicatio ns:Chronic midline low back pain without sciatica,Persist ent mood disorder (HCC) TAKE 1 CAPSULE (60 MG TOTAL) BY MOUTH DAILY 90 capsule 1 1 Active losartan (COZAAR) 100 mg tabletIndication s:Essential hypertension TAKE 1 TABLET (100 MG TOTAL) BY MOUTH DAILY 90 tablet 3 1 Active ibuprofen (ADVIL,MOTRIN) 600 mg tablet Take 1 tablet (600 mg total) by mouth every 6 (six) hours as needed for pain 30 tablet 4 Active pregabalin (LYRICA) 75 mg capsule Take 1 capsule (75 mg total) by mouth 4 Active Active Problems Problem Noted Date Diagnosed Date Numbness and tingling of right hand 11/18/2024 Dyspnea 09/20/2022 Nasopharyngitis 06/19/2021 Overview (06/30/2021): Possibly allergic. Acute pharyngitis due to other specified organis ms 06/14/2021 Overview (06/19/2021): The patient states that for 5 days he has had a sore throat, nasal congestion. No cough no fever. Heis using Astelin and throat gargles nothing is helping he is getting worse. Assessment & Plan (06/19/2021 4:45 PM CDT): The patient states that for 5 days he has had a sore throat, nasal congestion. No cough no fever. Heis using Astelin and throat gargles nothing is helping he is getting worse. He is unable to come in due to poor mobility after back surgery. Recommended symptomatic treatment per protocol. Standby Rx for doxycycline sent to his pharmacy. Neck pain 06/08/2021 Overview (07/10/2021): Dull ache, can feel it when he swallows, arms and fingers feel tingly, and right 5th finger feels weak. Assessment & Plan (07/23/2021 4:21 PM CDT): For the past four weeks, he has had a dull ache in his neck. He thinks it is getting worse. He can feel it when he swallows. His arms and fingers feel tingly, and the right fifth finger feels weak. He denies any history of falls or other injuries such as MVA. He does have known lumbar spine problems scheduled for surgical intervention at the end of this month with Dr. Patel at [facility]. MRI of the lumbar spine was done at [facility], and we will get those images and report. However there has been no imaging of the C-spine. 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 Sensory exam in the arms and C-spine is normal. We will get a C-spine MRI. Depending on findings, consider additional workup, especially for the swallowing symptoms. Consider referral to Neurology to evaluate for neuromuscular disorders. Mild carpal tunnel syndrome of right wrist 03/27 Overview (03/27/2021): He has mild right carpal tunnel syndrome. Initial treatment usually entails some nonsteroidal medication, a cock-up wrist splint, and possibly some physical therapy. The CTS does not explain his neck/jaw pain, and additional evaluation/imaging might be appropriate. Assessment & Plan (03/30/2021 2:20 PM CDT): He had bilateral CTS surgery about six years ago and did well subsequently until recently when he developed recurrence of symptoms in the right arm out 1-2 months ago. He has mild carpal tunnel syndrome by EMG/NCS. This does not explain the shoulder and neck numbness he was experiencing, but all symptoms seem to be improved if not resolved at this time. We will monitor clinically but if he has a recurrence, he should let me know so we can order additional testing or referral. Rectal bleeding 12/26/2020 Overview (01/27/2021): He has noted some wipe-type bleeding. Exam shows external skin tags surrounding the anus versus less likely hemorrhoids. Nothing is actively bleeding at this time. We will refer him to surgery for evaluation. In the past he had some skin tags removed from his genitals so this is likely a similar process. Morbid obesity 10/04/2020 Overview (01/27/2021): BMI just over 40. Assessment & Plan (01/27/2021 4:04 PM PASSENGER FLAGMAN): He has started to work on his weight. His girlfriend who is a nurse is helping him. Hopefully this will get him on a trend downward instead of upward. Assessment & Plan (10/09/2020 10:37 AM PASSENGER FLAGMAN): We recommended attention to his diet and hopefully some weight loss. Assessment & Plan (07/22/2020 3:16 PM CDT): He is quite overweight, essentially into the morbid obese category at this time. He finds it difficult to stay active because of COVID-19. He has cut out sodas and plans to lose some weight. We will check labs for metabolic effects of obesity, and see him back in six months. Assessment & Plan (07/17/2019 4:06 PM CDT): He is working on his weight to get it down. 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 Continue efforts. Assessment & Plan (11/01/2018 1:36 PM PASSENGER FLAGMAN): He has lost about 10 lb since his last visit and is no longer in a morbid obese category. He plans to continue eating right and losing a few more lb. Male erectile disorder 12/26/2019 Assessment & Plan (07/22/2020 3:15 PM CDT): He has noted some increased difficulty achieving and maintaining erections. It has been going on for the past six months or so. We discussed options for evaluation and treatment. We are sending in some sildenafil for use as needed. ERICH (obstructive sleep apnea) 11/19/2019 Overview (11/28/2019): Portable home study read by Dr. Wolff: 1. Severe obstructive sleep apnea syndrome 2. Consider Positive Airway Pressure (PAP) devices such as continuous PAP (CPAP), auto-adjusting PAP (APAP), and bi-level PAP (Bi-PAP). 3. CPAP titration to determine optimal pressure required to alleviate sleep disordered breathing 4. Sleep hygiene should be reviewed to assess factors that may improve sleep quality. 5. Weight management and regular exercise should be initiated or continued 6. Avoid alcohol sedatives and other PLASTIC STRAIGHTENING ROLL OPERATOR depression that may worsen sleep apnea and disrupt normal sleep architecture Assessment & Plan (01/27/2021 4:03 PM PASSENGER FLAGMAN): He continues on CPAP. He gets a good night's sleep. Assessment & Plan (07/22/2020 3:16 PM CDT): He went on CPAP and it has been life changing. He sleeping well. Energy level is good. Verruca vulgaris 10/31/2019 Assessment & Plan (12/01/2019 3:55 PM PASSENGER FLAGMAN): I will set the patient up for the removal of the last remaining skin lesions. Assessment & Plan (10/31/2019 10:41 AM PASSENGER FLAGMAN): Pathology results returned as verruca vulgaris. We will plan for removal of another 20-30 in the setting. Given the shear number we may have to bring him back 1 further time to complete the last few remaining. He is in understanding. Steatohepatitis, non-alcoholic 07/26/2019 Assessment & Plan (01/27/2021 4:03 PM PASSENGER FLAGMAN): He has had a mild elevation of liver enzymes. I recommended weight loss. We will monitor labs periodically. Assessment & Plan (10/03/2020 3:47 PM PASSENGER FLAGMAN): His last set of labs did show a mild elevation of ALT. He has fatty liver from being overweight. Workup for other causes of chronic hepatitis was negative. I encouraged him to work on some weight loss. Assessment & Plan (07/22/2020 3:16 PM CDT): He has had some mild intermittent elevations of transaminases. Workup for other causes than fatty liver was negative. Follow-up labs are on order. Other fatigue 12/26/2018 Assessment & Plan (07/27/2019 11:29 AM CDT): He has been quite fatigued for the past six months. We explored this a bit. He does okay at work, but when he gets home he has no energy. He does not get short of breath. He road 6 miles on the exercise cycle recently with no trouble. He does not have chest pain. He gets about 6 hours of sleep at night. I recommend that he try to get 8 hours a night. He does not have significant daytime sleepiness, only scores 3 or 4 on the [place] scale. However he seems to be at risk for sleep apnea. He is quite obese. He has a Mallampati class 2-3 exam. His friends tell stef that he snores. We will request a sleep study. We will request other labs to evaluate his fatigue Hyperlipidemia 10/22/2018 Assessment & Plan (02/07/2021 4:06 PM CDT): Ten year cardiovascular risk remains relatively low. Hopefully with his new diet, he will be able to control lipids. Lab Results Component Value Date CHOL 191 08/15/2020 CHOL 209 (H) 07/21/2019 CHOL 217 (H) 10/22/2018 Lab Results Component Value Date HDL 38 (L) 08/15/2020 HDL 43 07/21/2019 HDL 44 10/22/2018 Lab Results Component Value Date LDLCALC 68 12/13/2014 LDL 116 (H) 08/15/2020 LDL 130 (H) 07/21/2019 LDL 142 (H) 10/22/2018 Lab Results Component Value Date TRIG 241 (H) 08/15/2020 TRIG 222 (H) 07/21/2019 TRIG 177 (H) 10/22/2018 Assessment & Plan (10/09/2020 10:37 AM PASSENGER FLAGMAN): We went over his lipids for purposes of the biometric screening. Ten year cardiovascular risk remains fairly low. Polycythemia 06/07/2018 Hypertension 02/06/2018 Overview (03/01/2017): Elevated blood pressure Assessment & Plan (03/30/2021 2:21 PM CDT): Blood pressure is in a good range on losartan. Continue same, and follow-up in six months. Assessment & Plan (02/06/2021 9:32 AM CDT): Systolic blood pressure is somewhat borderline. We will have him continue current medications, lose some weight, and see him back in six weeks for a recheck. Assessment & Plan (10/03/2020 3:46 PM PASSENGER FLAGMAN): He is here for biometric screening so he can get a discount on his health insurance. Blood pressure is in a good range on his current therapy. Continue same. Assessment & Plan (07/22/2020 3:14 PM CDT): Blood pressure is in a good range on current therapy. He is tolerating well. We are ordering follow-up labs and we will see him back in six months. Assessment & Plan (07/17/2019 4:05 PM CDT): Blood pressure is in a reasonable range. He denies having chest pain. There is no swelling in his legs. We sent in a refill of his medicine has requested. Assessment & Plan (10/24/2018 3:21 PM PASSENGER FLAGMAN): Blood pressure is in a good range on current therapy. He is tolerating his medications. Labs are stable. Continue same and follow-up in six months. Assessment & Plan (07/14/2018 3:23 PM CDT): Blood pressure is somewhat borderline elevated, currently on lisinopril. We will have him come back in a month for recheck and if still elevated, consider a change in therapy. He does mention that he has had some paroxysms of coughing lately. It happens about every other day. It lasts for about 10 min and goes away. He denies postnasal drainage or heartburn issues. This could be a lisinopril cough. Depending on labs, we may want to change his blood pressure medicine anyway so we will the revisiting all this. Assessment & Plan (02/15/2018 8:03 PM CDT): He has been checking blood pressures at home. He gets similar readings to the current reading in the office. This is indicative of mild hypertension. He has no worrisome symptoms such as chest pain or swelling in his legs. Since he has not been able to control this with diet and weight loss (weight is up a bit), we will put him on low-dose of lisinopril, risk of medication discussed. He should continue to check blood pressures at home and if they do not come down below 140/90, return in about six months or sooner as needed. Elevated serum creatinine 01/23/2015 Overview (02/06/2018): Probably due to muscular build. Assessment & Plan (07/15/2018 3:02 PM CDT): He has had a mild elevation of creatinine for years. However he presented to the emergency room about a month ago with heat exhaustion. Creatinine was over 2.0, and hemoglobin was over 19.0. He was given IV fluids and discharged home. He is seen now here for a follow-up. We will check some labs. Hopefully things will be back to his baseline, if not then additional workup will be needed to see if he has developed some chronic kidney disease. We may want to change his blood pressure medicine which could possibly exacerbate kidney failure. Follow up no later than one month or sooner as needed. Coronary artery disease without angina pectoris 12/13/2014 Overview (08/14/2018): 1. MILD CORONARY ARTERY DISEASE IN THIS RIGHT DOMINANT SYSTEM WITH DIFFUSE 25% MID TO DISTAL LAD STENOSIS, DIFFUSE 25% MID RCA STENOSIS AND DIFFUSE 25% MID CIRCUMFLEX STENOSIS. 2. NO MITRAL REGURGITATION. 3. MILDLY DIMINISHED GLOBAL LV FUNCTION WITH ESTIMATED EJECTION FRACTION OF 45- 50%. THE FINDINGS AND PLAN WERE DISCUSSED WITH DR. CERVANTES OVER THE PHONE. WE WILL GET ECHOCARDIOGRAM STUDY TO SEE IF THE LV FUNCTION IS INDEED SLIGHTLY DIMINISHED. DIET, EXERCISE AND THERAPEUTIC LIFESTYLE CHANGES DISCUSSED WITH THE PATIENT. Assessment & Plan (01/27/2021 4:06 PM PASSENGER FLAGMAN): He had mild coronary disease on cardiac catheterization about six years ago. He takes an aspirin every day. We also recommend lifestyle modification. Assessment & Plan (07/22/2020 3:13 PM CDT): He has mild chronic coronary disease. He is on a baby aspirin. We will check follow-up lipids and discuss any needed treatment. Assessment & Plan (07/17/2019 4:03 PM CDT): He has mild coronary artery disease on catheterization a number of years ago. There was mildly diminished global LV systolic function. He denies having any chest pains or shortness of breath. He is on aspirin as his main treatment. Recent cholesterol numbers are okay, we will repeat them and if appropriate, at cholesterol medicine. Assessment & Plan (10/24/2018 3:21 PM PASSENGER FLAGMAN): He has no complaints of chest pain. 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 He also goes to the gym. He had a heart catheterization about three years ago that showed mild to moderate coronary disease with mildly diminished global LV function. Therapeutic lifestyle changes were recommended. We also would recommend that he take a low-dose aspirin daily. Follow-up in six months or sooner as needed. LV dysfunction 12/13/2014 Overview (03/24/2021): Cath reports: Mild CAD, mildly decreased LV systolic function, 45-50%. See report, [facility], Dr. Perry. However, echo reports: 1. THE STUDY WAS TECHNICALLY SUBOPTIMAL IN THE APICAL WINDOWS. 2. NORMAL LEFT VENTRICULAR SYSTOLIC FUNCTION. ESTIMATED EJECTION FRACTION 65- 70%. 3. INCREASED AORTIC VALVE VELOCITIES CONSISTENT WITH INCREASED OUTPUT. THE AORTIC VALVE LEAFLETS APPEAR TO MOVE NORMALLY. 4. MILD MITRAL REGURGITATION. 5. MILD TRICUSPID REGURGITATION WITH CALCULATED RIGHT VENTRICULAR SYSTOLIC PRESSURE OF 75MMHG WHICH IS NORMAL. Follow-up echo on 03/24/2021: Normal left ventricular systolic function with no focal wall motion abnormalities. Normal left ventricular size. Normal left ventricular diastolic function. Ejection fraction is visually estimated at 65 %. The left atrium is normal in size. Normal left atrial pressure. The right atrium is normal in size. Right Atrial Pressure = 5 mmHg. Normal structure of the tricuspid valve. Right Ventricular Systolic Pressure could not be estimated due to inadequate visualization of TR jet. Assessment & Plan (03/30/2021 2:22 PM CDT): He has had some borderline LV systolic function on previous evaluations. He was complaining of some shortness of breath so we ordered a follow-up echo which shows normal LV systolic function. He also has some mild intermittent asthma. He now says that the previous symptoms have resolved. He no longer feels short of breath. We will continue current therapy. Follow-up in six months. Assessment & Plan (02/07/2021 4:06 PM CDT): He had a cardiac catheterization five or six years ago, there was a mild decrease in L the function, but echocardiogram actually showed normal LV function. Lately he has had some dyspnea with exertion. I think it is likely due to some weight gain. He has also stopped using his Symbicort inhaler because it was too expensive. Exam shows clear lungs. Oxygen saturation is normal. I encouraged him to lose weight, and to talk to his insurance about alternative inhalers, and follow-up in six weeks. We will also get an echocardiogram to make sure LV function remains normal. Steatosis of liver 10/05/2014 Overview (03/01/2017): Hepatic steatosis Assessment & Plan (07/17/2019 4:10 PM CDT): He has had mild elevation of ALT on two occasions now. He apparently had some sort of imaging of the liver four or five years ago that showed some fatty change. We will check an ultrasound of the liver as well as some other labs to determine if there is some other cause of chronic liver disease. Chronic steatohepatitis could definitely be a cause of some fatigue, and also increases the risk of chronic liver disease in the future. Depending on findings, consider additional workup and/or referral. Assessment & Plan (02/06/2018 4:23 PM CDT): We are checking some labs to see if there is any inflammatory reaction to the fatty infiltration seen in the liver on imaging studies. Last set of liver enzymes were actually normal. Hyperglycemia 08/25/2014 Overview (10/03/2020): Mildly elevated fasting blood sugar. Assessment & Plan (10/03/2020 3:46 PM PASSENGER FLAGMAN): We discussed the mild elevation of his blood sugar which might be pre diabetes. Weight loss would be helpful. Assessment & Plan (10/24/2018 3:22 PM PASSENGER FLAGMAN): In the past, he has had some mild/borderline elevated blood sugars. Most recent fasting blood sugar is normal at 98. He is working hard on his diet and losing some weight. Continue same. Follow up in six months. Assessment & Plan (07/14/2018 3:24 PM CDT): He has had some mild elevations of blood sugar here and there. He could be at risk for diabetes. It does run in his grandparents. We will keep a close eye on this with periodic checks. He will also try to get his weight down with a better diet. Assessment & Plan (02/06/2018 4:20 PM CDT): On a set of labs from a couple years ago, blood sugar was mildly elevated. This is probably a nonfasting lab which was done in the emergency room and/or the hospital at the time of some chest pain. We will recheck labs and if appropriate, evaluate for underlying diabetes. Mild intermittent asthma without complication Overview (07/22/2020): Asthma/COPD, former smoker. Assessment & Plan (04/09/2021 4:58 PM CDT): He stopped using Symbicort about two months ago when he ran out. He could not afford the refills but says he does not feel he needs this inhaler at this time. He says the albuterol is working just fine. Today, lungs are clear and oxygen saturation is normal. Assessment & Plan (07/22/2020 3:15 PM CDT): He used to smoke, but quit a number of years ago. Lungs are clear and oxygen saturation is normal. Continue current inhalers. Assessment & Plan (07/27/2019 11:27 AM CDT): Continue current therapy as discussed elsewhere. Assessment & Plan (07/15/2018 3:05 PM CDT): He is not wheezing at this time. He has an albuterol inhaler for use as needed. He complains of a paroxysmal cough about every other day. This could be cough equivolent asthma. He was previously on a long-acting beta-agonist and steroid combination with good control of asthma symptoms. We will give him a Symbicort sample to see if this helps his cough. If not, then we will most likely stop his lisinopril as a possible cause of his cough. A recent CBC in the emergency room showed an elevated hemoglobin of over 19. Oxygenation in the office is normal, so I do not think he has chronically hypoxemic. If the repeat hemoglobin is still elevated, we will have to seek other causes. Assessment & Plan (02/15/2018 8:03 PM CDT): He has rather mild symptoms. He carries around a Ventolin inhaler in case they flare up. Lungs are clear on exam today. Continue to monitor. Chronic obstructive pulmonary disease 02/23/2010 Overview (04/19/2017): COPD Assessment & Plan (01/27/2021 4:07 PM PASSENGER FLAGMAN): He has mild to moderate symptoms. He has a rescue inhaler for use as needed. He has not been using his Symbicort because it is so expensive. He will call his insurance to see if alternatives are available. Assessment & Plan (10/09/2020 10:35 AM PASSENGER FLAGMAN): He has chronic COPD from allergies. He is on a couple of inhalers. He has no fever. Lungs are clear and oxygen saturation is normal. However, he is coughing a little more than usual and his workplace is requiring a COVID test. We will get that set up and have him self quarantine until it is available, hopefully in the next day or two. Assessment & Plan (07/17/2019 4:05 PM CDT): He is a former smoker but quit about five years ago. He has inhalers that keep his symptoms under control. He uses the Symbicort about every other day to stretch it out, as it is somewhat costly. Lungs are clear and oxygen saturation is satisfactory. Assessment & Plan (10/24/2018 3:20 PM PASSENGER FLAGMAN): He used to smoke cigarettes but quit many years ago. He does use a Symbicort inhaler and has a rescue inhaler as needed. Lungs are clear and oxygen saturations are normal. Continue same. Low back pain 08/25/2007 Overview (03/01/2017): Low back pain Assessment & Plan (10/21/2021 1:02 PM PASSENGER FLAGMAN): Scanned office note, Dr. Patel, [facility]. Assessment & Plan (07/22/2020 3:14 PM CDT): His back is doing better. The duloxetine seems to be helping. He only has occasional mild pain at this time. Continue monitor. Assessment & Plan (02/06/2018 4:21 PM CDT): He has chronic low back pain. In the past it has radiated down his legs, but with Cymbalta, his back pain is much better. There is no radiation down the legs. He is very functional. Refill provided. Persistent mood disorder 08/25/1996 Overview (03/01/2017): Mood disorder Assessment & Plan (03/30/2021 2:19 PM CDT): He says his mood is good on Cymbalta. Continue same. Assessment & Plan (07/22/2020 3:16 PM CDT): Mood is good. Cymbalta is helping. Continue same. Assessment & Plan (07/17/2019 4:09 PM CDT): He continues to do well on Cymbalta, denies feeling moreno or depressed. He will continue the same. Assessment & Plan (10/24/2018 3:23 PM PASSENGER FLAGMAN): He is on Cymbalta. His mood is good. Continue same. Assessment & Plan (07/14/2018 3:26 PM CDT): He is on duloxetine with good control of his mood issues. He complains of profuse sweating in the heat. If anything, I would think duloxetine would counter that a bit. Most likely it is his weight and a little heat intolerance that causes him to sweat so much. Assessment & Plan (02/06/2018 4:22 PM CDT): In the past, he has had problems with a depressed mood. We put him on Cymbalta for dual purposes of alleviating low back pain and improving his mood. It has worked well for him. He would like refills which we provided. Resolved Problems Problem Noted Date Diagnosed Date Resolved Date Tendonitis of elbow, right 12/05/2020 0 03/30/2021 Overview (03/30/2021): See office note, TRANG Card. Subsequent additional evaluations suggested mild right carpal tunnel syndrome, improved with conservative management. Assessment & Plan (12/05/2020 4:31 PM PASSENGER FLAGMAN): Probable tendonitis. I advised that he try RICE for this. He is already taking Ibuprofen which he can continue to take during the day. I will give him some tramadol to take at bedtime. He is aware not to take this while driving or operating machinery. We can also try a short course of medrol, and he will call me next week if this is not working, and we can get an x-ray and also send him to physical therapy for this. He agrees to the plan. Dysfunction of both eustachian tubes 09/29/2020 01/27/2021 Overview (01/27/2021): Resolved. Went to ER for OM, got Duricef. Assessment & Plan (10/09/2020 10:36 AM PASSENGER FLAGMAN): Since last , about five days ago, he has had congestion in his ears. It feels like there is a hollow sound. Exam shows bilateral TM sclerosis but light reflex is preserved. There may be a healed right central TM perforation. There is no redness. Most likely he has some eustachian tube dysfunction and possibly serous otitis. We will put him on Astelin nasal spray and Mucinex. If he does not improve, he should call and we will send in some empiric antibiotic therapy. He did have a right otitis media earlier this year that responded to antibiotics. This time it is both ears and there is no pain as such. Non-recurrent acute suppurat catrina otitis media of right ear without spontaneous rupture of tympanic membrane 01/31/2020 10/03/2020 Overview (07/22/2020): See office note. Assessment & Plan (02/04/2020 3:29 PM CDT): He came down with a respiratory infection on Saturday. He had cough productive of clear phlegm, runny nose, and a headache. No sinus pain or pressure. He has had a sore throat. He has had congestion and discomfort in his right ear. Exam shows a probable suppurative right otitis media. Remainder of his exam is unremarkable. He is allergic to penicillin. We will put him on doxycycline. He still has some cough medicine left over from his last bout with respiratory infection. He can use that as needed for his cough and hopefully to loosen up secretions a bit. Follow-up early next week if not getting better. Diarrhea 11/13/2019 01/27/2021 Overview (01/27/2021): See office note, Stephie. Assessment & Plan (11/13/2019 2:34 PM PASSENGER FLAGMAN): Pt has improved over the past few days, with today feeling the best he has felt and hasn't had a BM since early this morning. Recommend a bowel rest for 12-24 hours with sips of fluids (water/gatorade). Then start with bland diet of BRAT diet: bananas, rice, applesauce, toast. Then increase diet as tolerated to full diet. If symptoms are worsening or persisting over the weekend, seek treatment at ED. Acute bacterial sinusitis 10/13/2019 Overview (11/28/2019): See office note. Skin lesion 10/11/2019 10/31/2019 Assessment & Plan (10/16/2019 1:32 PM PASSENGER FLAGMAN): We will set this patient up for excision under local anesthetic in the office. Given the shear number and sensitive nature of the area I have discussed that we may have to do this in 2 settings given the large number. He is in understanding. Assessment & Plan (10/11/2019 1:21 PM PASSENGER FLAGMAN): Discussed the procedure of excision of the lesion and the patient expressed desire for removal of the inner thigh lesion and 3 on his back. Discussed wound care after procedure. Community acquired pneumonia of right lower lobe of lung 10/10/2019 11/28/2019 Overview (11/28/2019): See office note. Treated empirically. Assessment & Plan (10/24/2019 11:12 AM PASSENGER FLAGMAN): He has had respiratory symptoms off and on for a couple of months, but recently developed a recurrence with fever and chills. He has nasal and sinus congestion, and pain in the right ear. He has a cough productive of white to creamy sputum. No hemoptysis. He has a pleuritic pain in the right mid to lower chest wall where there are some fine crackles on exam. Overall impression is right mid to lower lung pneumonia. We will get him started on some antibiotics and symptom treatment. Follow up in a week or so if not getting better, or go to ER if getting worse. Immunizations Name Administration Dates Next Due Hep A / Hep B 07/28/2019 Influenza, Quadrivalent, Etelvina l Culture-based MDCK, Preservative Free, Antibiotic Free, Intramuscular 08/27/2020 Influenza, Quadrivalent, Spl it, Intramuscular 08/30/2017,09/03/2016 Influenza, Quadrivalent, Spl it, Preservative Free, Intramuscular 10/13/2018 Influenza, Trivalent, IM (MDV) 08/31/2016,2014,07/26/2014 Influenza, Unspecified 08/29/2019,09/09/2017 MMR 07/17/2019 Moderna SARS-CoV-2 Monovalen t Vaccination (12+ YRS) 03/24/2021 Pneumococcal Conjugate PCV 13 07/17/2019 Pneumococcal Polysaccharide PPV23 02/06/2018,,06/07/2010 TD Preservative Free 09/17/2014,05/25/2007 Td, adsorbed 05/25/2007 Social History Tobacco Use Types Packs/Day [...] on file Legal Sex Male 9:12 AM PASSENGER FLAGMAN Gender Identity Not on file Sexual Orientation Not on file Last Filed Vital Signs Vital Sign Reading Time Taken Comments Blood Pressure 150/83 09/04/2024 10:41 AM CDT Pulse 60 09/04/2024 10:41 AM CDT Temperature 36.4 ??C (97.5 ??F) 08/30/2024 5:11 AM CD T Respiratory Rate 18 08/30/2024 5:11 AM CDT Oxygen Saturation 96% 09/04/2024 10: 41 AM CDT Inhaled Oxygen Concentration - - Weight 115.5 kg (254 lb 9.6 oz) 024 10:41 AM CDT Height 170.2 cm (5' 7 ) 09/04/2024 10:4 1 AM CDT Body Mass Index 39.88 09/04/2024 10:41 AM CDT Plan of Treatment Not on file Medical Devices Implanted Type Area Optical Assistant Device Identifier Shelf Expiration Date Model / Serial / Lot Neurostimulator Neurostimulator Back Procedures Procedure Name Priority Date/Time Associated Diagnosis Comments EMG/NCV Routine 11/09/2024 9:30 AM PASSENGER FLAGMAN Cubital tunnel syndrome on right PORTABLE/HOME SLEEP STUDY Routine 09/18/2024 2:30 PM CDT ERICH (obstructive sleep apnea) CT CERVICAL SPINE WO CONTRAST ED 08/30/2024 6:47 AM CDT XR SHOULDER RIGHT 2 OR MORE VIEWS ED 08/30/2024 6:44 AM CDT HEPATITIS C ANTIBODY Routine 07/21/2019 7:06 AM CDT from Last 3 Months or Most Recently Relevant to Health Maintenance Results * EMG/NCV - (11/09/2024 9:30 AM PASSENGER FLAGMAN) Anatomical Region Laterality Modality EMG, EMG Impressions 11/09/2024 9:31 AM PASSENGER FLAGMAN History: This is a 54 years old male patient being evaluated for tingling and numbness of right hand. Nerve conduction studies: Right median motor nerve conduction study showed normal DML, borderline low CMAP amplitude, normal motor nerve conduction velocity and normal F wave latency. ??Right ulnar motor nerve conduction study showed normal DML, borderline low CMAP amplitude, normal motor nerve conduction velocity below the elbow, slow motor nerve conduction velocity across the elbow and normal F wave latency. ??Right radial antidromic sensory nerve conduction study showed normal SNAP peak latency, normal amplitude and normal sensory nerve conduction velocity. ??Right ulnar and right median orthodromic sensory nerve conduction studies showed normal SNAP peak latencies, normal amplitudes and normal sensory nerve conduction velocities. ??Right median and right radial SNAP peak latency comparison study using ring electrodes showed SNAP peak latency 1.7 ms for right radial nerve and 3.4 ms for right median nerve. EMG studies: The concentric needle electrode examination was performed on right FDI, APB, flexor carpi radialis, biceps and deltoid. ??There was no evidence of acute or chronic denervation or reinnervation. ??The interference pattern is full in all muscle tested. Impression: This is an abnormal study. ??There was electrophysiologic evidence suggestive of: 1. 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 2. 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 The needle EMG study of right upper extremity did not show any ongoing denervation. The clinical correlation is recommended. ?? us Hai Pradhan MD NEUROLOGY ORDERABLES Final Resu lt * Portable/Home Sleep Study (09/18/2024 2:30 PM CDT) Impressions Pascale Wolff MD - 09/18/2024 2:30 PM CDT Indication for study: Mr. Sanchez is a 53-year-old gentleman chief complaints of snoring, unrefreshing sleep and daytime fatigue and sleepiness. ??The patient's [place] Sleepiness scale score is 8 Vital statistics: [...] 1b. ??This study was performed using a [employer] apnea ??Link portable monitoring unit, a type [...] continued 6. 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 ??There is moderate right and cwyl-xo-qmqnrsyy left ??bony neural foraminal narrowing. C4-C5: There is ??moderate ??bony central canal stenosis. ??There is mild left but no significant right ??bony neural foraminal narrowing. C5-C6: There is ??moderate ??bony central canal stenosis. ??There is mild bilateral ??bony neural foraminal narrowing. C6-C7: There is ??lxfx-yf-xubtljew ??bony central canal stenosis. ??There is fycy-ax-anmwqnnz right and moderate left ??bony neural foraminal [...] AM T: ??08/30/2024 7:05 AM Report ID: [id number] Reading Location: ??[id number] Procedure Note Nichole Greenberg MD - 08/30/2024 [...] central canal stenosis. There is moderateright and ttaq-qr-flrxxjqv left bony neural foraminal narrowing. C4-C5: There is moderate bony central canal stenosis. There is mildleft but no significant right bony neural foraminal narrowing. C5-C6: There is moderate bony central canal stenosis. There is mild bilateral bony neural foraminal narrowing. C6-C7: There is ubef-ti-tcvwjvkd bony central canal stenosis. There is ffyb-nz-fnbpkoyl right and moderate left bony neural foraminalnarrowing. [...] Nichole Greenberg M.D. SN: SN Report ID: [id number] Reading Location: [id number] Mega Dave MD IMG CT PROCEDURES Final [...] or dislocation ??Hx of surgery in the ?? TECHNIQUE: Five ??radiographic views of the [...] AM T: ??08/30/2024 6:53 AM Report ID: [id number] Reading Location: ??[id number] Procedure Note Nichole Greenberg MD - 08/30/2024 [...] Nichole Greenberg M.D. SN: SN Report ID: [id number] Reading Location: [place] [id number] Mega Dave MD IMG XR PROCEDURES Final Result * Hepatitis C antibody (07/21/2019 7:06 AM CDT) Hep C Ab NON-REACT CATRINA NON-REACT CATRINA [facility] [place] SIGNAL TO CUT-OFF 0.03 <1.00 [facility] [place] Comment: HCV antibody was non-reactive. There is no laboratory evidence of HCV infection. In most cases, no further action is required. However, if recent HCV exposure is suspected, a test for HCV RNA (test code 71994) is suggested. For additional information please refer to http://education.TheCommentor/faq/RYK00n2 (This link is being provided for informational/ educational purposes only.) 07/21/2019 7:06 AM CDT 07/21/2019 7:11 AM CDT Narrative [facility] - 07/23/2019 4:34 PM CDT FASTING:YES FASTING: YES Resulting Agency Comment Performing Organization Information: ?Site ID: [id number] ?Name: [facility] ?Address: [facility] [place] [address] ?Director: Orion Glynn D.O., MPH Az Allison MD LAB MICROBIOLOGY - GENERAL OR DERABLES Final Result [facility] [place] [place] from Last 3 Months or Most Recently Relevant to Health Maintenance Insurance [facility] WORKERS COMPENSATION GENERIC WORKERS COMPENSATION GENERIC Care Teams Scalehouse Attendant Relationship Specialty Start Date End Date Hai Pradhan MD PCP - General Internal Medicine 09/20/22 Pascale Wolff MD Consulting Physician Sleep Medicine 12/06/19 Rudi Patel MD Resident Neurosurgery 06/08/21
--- OUTSIDE RECORDS SUMMARY | 2024-11-24 10:08 | XMS_ITS | Encounter Summary ---
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
--- OUTSIDE RECORDS SUMMARY | 2024-11-24 10:08 | XMS_ITS | Encounter Summary ---
Author Organization [facility] Healthcare Address [address] [place] [address] Care Team Providers Care Smart Energy Specialist Name Role Phone Pascale Wolff MD Unavailable Rudi Patel MD Unavailable [phone] Hai Pradhan MD Primary Care Provider [phone] Reason for Visit * Reason Onset Date Comments PMC INtake Assessment 09/17/2024 Encounter Details Date Type Department Care Team (Late st Contact Info) Description 09/17/2024 Telephone [facility] [place] [id number] [address], [address] [place] [id number] Katy Ellis, [facility] INtake Assessment Social History Tobacco Use Types Packs/Day Years [...] on file 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 Right elbow and right forearm will radiating up to the right shoulder Do you have any numbness, tingling, or weakness? Weakness, numbness, tingling in the RUE How long have has the pain been going on? 4-5 weeks Was there any accident or injury that started the pain? Denies What would you rate your pain on the number scale 1-10 with 10 being the most severe/ you can give me a range from your best to your worst? 9/10 Have you had any physical therapy/ when did you complete it/ how many sessions/was it helpful? No PT Are you doing home exercises? Tries but the pain is too severe What medications are you currently taking for the pain and what medications have you tried? Ibuprofen, pregabalin 150 mg BID , has tried Have you had pain management before? Yes What is the name and location of previous pain management? [facility], last injection was 09/23/24 Have you had any injections in the past 12 months? Have you had any imaging done? EXAM DESCRIPTION: CT CERVICAL SPINE WO CONTRAST [...] canal stenosis. There is moderate right and jjvq-yt-mstpyuac left bony neural foraminal narrowing. C4-C5: There is moderate bony central canal stenosis. There is mild left but no significant right bony neural foraminal narrowing. C5-C6: There is moderate bony central canal stenosis. There is mild bilateral bony neural foraminal narrowing. C6-C7: There is gicn-oc-qjgznmnc bony central canal stenosis. There is fwxq-ia-bxuikokq right and moderate left bony neural foraminal [...] bony neural foraminal narrowing as described above. Are you on a prescription blood thinner/ who prescribes? Denies You have been referred for evaluation for C6-7 radiculopathy NPP mailed * Telephone Encounter - Katy Ellis RN - 09/17/2024 2:50 PM CDT LVM documented in this encounter Plan of Treatment Not on file documented as of this encounter Visit Diagnoses Not on filedocumented in this encounter Care Teams Smart Energy Specialist Relationship Specialty Start Date End Date Hai Pradhan MD PCP - General Internal Medicine 09/20/22 Pascale Wolff MD Consulting Physician Sleep Medicine 12/06/19 Rudi Patel MD Resident Neurosurgery 06/08/21 documented as of this encounter
--- OUTSIDE RECORDS SUMMARY | 2024-11-24 10:08 | XMS_ITS | Clinical Summary ---
Author Organization [facility] [address] Address [address] [place] [address] Phone Care Team Providers Care Negative Assembler Name Role Phone Pascale Wolff MD Unavailable Rudi Patel MD Unavailable [phone] Hai Pradhan MD Primary Care Provider [phone] Allergies Active Allergy Reactions Criticality Noted Date [...] of this month with Dr. Patel at [facility]. MRI of the lumbar spine was done at [facility], and we will get those images and report. However there has been no imaging of the C-spine. Exam shows normal strength and reflexes except for mild bilateral hand attendant campground weakness. Sensory exam in the arms and [...] 40. Assessment & Plan (01/27/2021 4:04 PM CAPTAIN CANNERY TENDER): He has started to work on his weight. His girlfriend who is a nurse is helping him. Hopefully this will get him on a trend downward instead of upward. Assessment & Plan (10/09/2020 10:37 AM CAPTAIN CANNERY TENDER): We recommended attention to his diet and [...] to get it down. 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 Continue efforts. Assessment & Plan (11/01/2018 1:36 PM CAPTAIN CANNERY TENDER): He has lost about 10 lb since [...] continued 6. Avoid alcohol sedatives and other LIQUID SUGAR MELTER depression that may worsen sleep apnea and disrupt normal sleep architecture Assessment & Plan (01/27/2021 4:03 PM CAPTAIN CANNERY TENDER): He continues on CPAP. He gets a good night's sleep. Assessment & Plan (07/22/2020 3:16 PM CDT): He went on CPAP and it has been life changing. He sleeping well. Energy level is good. Verruca vulgaris 10/31/2019 Assessment & Plan (12/01/2019 3:55 PM CAPTAIN CANNERY TENDER): I will set the patient up for the removal of the last remaining skin lesions. Assessment & Plan (10/31/2019 10:41 AM CAPTAIN CANNERY TENDER): Pathology results returned as verruca vulgaris. We will plan for removal of another 20-30 in the setting. Given the shear number we may have to bring him back 1 further time to complete the last few remaining. He is in understanding. Steatohepatitis, non-alcoholic 07/26/2019 Assessment & Plan (01/27/2021 4:03 PM CAPTAIN CANNERY TENDER): He has had a mild elevation of liver enzymes. I recommended weight loss. We will monitor labs periodically. Assessment & Plan (10/03/2020 3:47 PM CAPTAIN CANNERY TENDER): His last set of labs did show [...] only scores 3 or 4 on the [place] scale. However he seems to be at risk for sleep apnea. He is quite obese. He has a Mallampati class 2-3 exam. His friends tell salomonky that he snores. We will request a [...] 10/22/2018 Assessment & Plan (10/09/2020 10:37 AM CAPTAIN CANNERY TENDER): We went over his lipids for purposes [...] recheck. Assessment & Plan (10/03/2020 3:46 PM CAPTAIN CANNERY TENDER): He is here for biometric screening so [...] requested. Assessment & Plan (10/24/2018 3:21 PM CAPTAIN CANNERY TENDER): Blood pressure is in a good range [...] PATIENT. Assessment & Plan (01/27/2021 4:06 PM CAPTAIN CANNERY TENDER): He had mild coronary disease on cardiac [...] medicine. Assessment & Plan (10/24/2018 3:21 PM CAPTAIN CANNERY TENDER): He has no complaints of chest pain. [...] sugar. Assessment & Plan (10/03/2020 3:46 PM CAPTAIN CANNERY TENDER): We discussed the mild elevation of his blood sugar which might be pre diabetes. Weight loss would be helpful. Assessment & Plan (10/24/2018 3:22 PM CAPTAIN CANNERY TENDER): In the past, he has had some [...] COPD Assessment & Plan (01/27/2021 4:07 PM CAPTAIN CANNERY TENDER): He has mild to moderate symptoms. He has a rescue inhaler for use as needed. He has not been using his Symbicort because it is so expensive. He will call his insurance to see if alternatives are available. Assessment & Plan (10/09/2020 10:35 AM CAPTAIN CANNERY TENDER): He has chronic COPD from allergies. He [...] satisfactory. Assessment & Plan (10/24/2018 3:20 PM CAPTAIN CANNERY TENDER): He used to smoke cigarettes but quit many years ago. He does use a Symbicort inhaler and has a rescue inhaler as needed. Lungs are clear and oxygen saturations are normal. Continue same. Low back pain 08/25/2007 Overview (03/01/2017): Low back pain Assessment & Plan (10/21/2021 1:02 PM CAPTAIN CANNERY TENDER): Scanned office note, Dr. Patel, [facility]. [...] same. Assessment & Plan (10/24/2018 3:23 PM CAPTAIN CANNERY TENDER): He is on Cymbalta. His mood is [...] management. Assessment & Plan (12/05/2020 4:31 PM CAPTAIN CANNERY TENDER): Probable tendonitis. I advised that he try [...] Resolved. Went to ER for OM, got Srinivasaicef. Assessment & Plan (10/09/2020 10:36 AM CAPTAIN CANNERY TENDER): Since last , about five days ago, [...] Stephie. Assessment & Plan (11/13/2019 2:34 PM CAPTAIN CANNERY TENDER): Pt has improved over the past few [...] 10/31/2019 Assessment & Plan (10/16/2019 1:32 PM CAPTAIN CANNERY TENDER): We will set this patient up for excision under local anesthetic in the office. Given the shear number and sensitive nature of the area I have discussed that we may have to do this in 2 settings given the large number. He is in understanding. Assessment & Plan (10/11/2019 1:21 PM CAPTAIN CANNERY TENDER): Discussed the procedure of excision of the lesion and the patient expressed desire for removal of the inner thigh lesion and 3 on his back. Discussed wound care after procedure. Community acquired pneumonia of right lower lobe of lung 10/10/2019 11/28/2019 Overview (11/28/2019): See office note. Treated empirically. Assessment & Plan (10/24/2019 11:12 AM CAPTAIN CANNERY TENDER): He has had respiratory symptoms off and [...] or go to ER if getting worse. Encounters Date Type Department Care Team Description 11/09/2024 8:10 AM CAPTAIN CANNERY TENDER - 11/09/2024 11:59 PM CAPTAIN CANNERY TENDER Hospital Encounter [facility] Neurological Disorders Testing [address] [place] [address] Numbness and tingling of right hand [R20.0, R20.2] (Primary Dx); Cubital tunnel syndrome on right Discharge Disposition: Discharge to home or self care 09/17/2024 11:00 AM CDT - 09/17/2024 11:59 PM CDT Hospital Encounter [facility] [address] [place] [address] ERICH (obstructive sleep apnea) Discharge Disposition: Discharge to home or self care 09/17/2024 Telephone [facility] at [facility] [address] [address], [address] [place] [id number] Katy Ellis RN [facility] INtake Assessment 09/04/2024 10:30 AM CDT Office Visit [facility] [address] [place] [address] Pascale Wolff MD Hypersomnia with sleep apnea (Primary Dx); ERICH (obstructive sleep apnea); Severe obesity (BMI 35.0-35.9 with comorbidity) ([facility]) 08/30/2024 5:13 AM CDT - 08/30/2024 8:07 AM CDT Emergency [facility] Emergency Department [address] [place] [address] Mega Dave MD Cervical radiculopathy (Primary Dx) Discharge Disposition: Discharge to home or self care from Last 3 Months Immunizations Name Administration Dates Next Due Hep [...] TD Preservative Free 09/17/2014,05/25/2007 Td, adsorbed 05/25/2007 Surgical History Surgery Date Site/Laterality Comments SPINAL FUSION 11/25/2008 - 11/24/2009 L5-S1 SHOULDER ARTHROSCOPY W/ SUBACROMIAL DECOMPRESSION AND DISTAL CLAVICLE EXCISION 11/25/2001 - 11/24/2002 Dr. Henriquez. CARPAL TUNNEL RELEASE 11/25/2013 - 11/24/[address] Fajardo CARDIAC CATHETERIZATION 12/13/2014 Left Mild CAD, mildly diminished LVEF, Dr. Perry, [facility]. Medical History Medical History Date Comments Chronic obstructive pulmonar y disease (HCC) 02/23/2010 COPD Hyperglycemia 08/25/2014 Elevated blood s ugar Morbid obesity (HCC) 08/25/2013 Obesity Steatosis of liver 10/05/2014 Hepatic steat osis Abnormal findings on cardiac catheterization 12/13/2014 Mild CAD, mildly decreased L V systolic function. See report, [facility], Dr. Perry. Community acquired pneumonia of right lower lobe of lung 10/10/2019 See office note. Treated empirically. Acute bacterial sinusitis 10/13/2019 See of fice note. Non-recurrent acute suppurat catrina otitis media of right ear without spontaneous rupture of tympanic membrane 01/31/2020 See office note. Non morbid obesity 10/24/2018 Obesity Covid-19 08/15/2020 Dysfunction of both eustachian tubes 09/29/2020 Resolved. Went to ER for OM, got Duricef. Diarrhea 11/13/2019 See office note, Stephie. Tendonitis of elbow, right 12/05/2020 See o ffice note, Stephie, ANP. Subsequent additional evaluations suggested mild right carpal tunnel syndrome, improved with conservative management. Mild persistent asthma witho ut complication 08/25/2012 Asthma/COPD, former smoker. Family History Medical History Relation Name Comments Kidney cancer Father Other Father Age 65 with unk now cancer.; Stomach cancer Father Testicular cancer Father In his 40s Other Mother Age 67 alive an d well.; Diabetes type II Paternal Grandfather Diabetes type II Paternal Grandmother Relation Name Status Comments Father Mother Paternal Grandfather Paternal Grandmother Social History Tobacco Use Types Packs/Day Years [...] on file Legal Sex Male 9:12 AM CAPTAIN CANNERY TENDER Gender Identity Not on file Sexual Orientation Not on file Obstetrics History Last Filed Vital Signs Vital Sign Reading [...] 09/04/2024 10:41 AM CDT Plan of Treatment Health Maintenance Due Date Last Done Comments Colon Cancer Screening-Colonoscopy 1971 Prostate Cancer Screening-PSA 1971 DTaP/Tdap/Td Vaccine (1 - Tdap) 09/18/2014 09/17/2014, 05/25/2007, 05/25/2007 Depression Screening 07/22/2021 07/22/2020, 10/24/20 18 Regular Well Visit/Exam 18-64 07/22/2021, 07/17/2019, 02/06/2018 Lung Cancer Screening 2021 Zoster Vaccine (1 of 2) 2021 Covid-19 Vaccine (3 - 2023-2 5 season) 2024 04/21/2021, 03/24/2021 Influenza Vaccine (#1) 2024 , 08/29/2019, 10/13/2018, Additional history exists Pneumococcal vaccine <65 (3 of 3 - PPSV23 or PCV20) 2036 07/17/2019, 02/06/2018, 08/10/2014, Additional history exists Hepatitis C Screening Completed 07/21/2019 Medical Devices Implanted Type Area Joinery Setter Out Device Identifier Shelf Expiration Date Model / Serial / Lot Neurostimulator Neurostimulator Back Procedures Procedure Name Priority Date/Time Associated Diagnosis Comments EMG/NCV Routine 11/09/2024 9:30 AM CAPTAIN CANNERY TENDER Cubital tunnel syndrome on right PORTABLE/HOME SLEEP [...] Results * EMG/NCV - (11/09/2024 9:30 AM CAPTAIN CANNERY TENDER) Anatomical Region Laterality Modality EMG, EMG Impressions 11/09/2024 9:31 AM CAPTAIN CANNERY TENDER History: This is a 54 years old [...] and daytime fatigue and sleepiness. ??The patient's [place] Sleepiness scale score is 8 Vital statistics: [...] 1b. ??This study was performed using a Lumora apnea ??Link portable monitoring unit, a type [...] continued 6. Avoid alcohol sedatives and other LIQUID SUGAR MELTER depression that may worsen sleep apnea and [...] canal stenosis. ??There is moderate right and zadu-mj-jxcoaudw left ??bony neural foraminal narrowing. C4-C5: There is ??moderate ??bony central canal stenosis. ??There is mild left but no significant right ??bony neural foraminal narrowing. C5-C6: There is ??moderate ??bony central canal stenosis. ??There is mild bilateral ??bony neural foraminal narrowing. C6-C7: There is ??rnzr-km-wpkmapww ??bony central canal stenosis. ??There is hfuu-bo-qrgetmvi right and moderate left ??bony neural foraminal [...] AM T: ??08/30/2024 7:05 AM Report ID: [id number] Reading Location: ??[id number] Procedure Note Nichole Greenberg MD - 08/30/2024 [...] at the C5-C6 level. There is no julinaa or retrolisthesis. ATLANTOAXIAL JUNCTION: There is mild [...] central canal stenosis. There is moderateright and mltm-wf-gnzxampr left bony neural foraminal narrowing. C4-C5: There is moderate bony central canal stenosis. There is mildleft but no significant right bony neural foraminal narrowing. C5-C6: There is moderate bony central canal stenosis. There is mild bilateral bony neural foraminal narrowing. C6-C7: There is vpek-xa-gjmnwqqj bony central canal stenosis. There is neuh-gv-svruqptt right and moderate left bony neural foraminalnarrowing. [...] by Nichole Greenberg M.D. SN: Report ID: [id number] Reading Location: [place] [address] Mega Dave MD IMG CT PROCEDURES Final [...] Electronically signed by ??Nichole Greenberg M.D. SN: SN D: ??08/30/2024 6:53 AM T: ??08/30/2024 6:53 AM Report ID: [id number] Reading Location: ??[id number] Procedure Note Nichole Greenberg MD - 08/30/2024 [...] by Nichole Greenberg M.D. SN: Report ID: [id number] Reading Location: [id number] Mega Dave MD IMG XR PROCEDURES Final Result * Hepatitis C antibody (07/21/2019 7:06 AM CDT) Hep C Ab NON-REACT CATRINA NON-REACT CATRINA [facility] SIGNAL TO CUT-OFF 0.03 <1.00 [facility] [place] Comment: HCV antibody was non-reactive. There is no laboratory evidence of HCV infection. In most cases, no further action is required. However, if recent HCV exposure is suspected, a test for HCV RNA (test code 11686) is suggested. For additional information please refer to http://education.Pathogenetix/faq/WHJ64p9 (This link is being provided for informational/ educational purposes only.) 07/21/2019 7:06 AM CDT 07/21/2019 7:11 AM CDT Narrative [facility] - 07/23/2019 4:34 PM CDT FASTING:YES FASTING: YES Resulting Agency Comment Performing Organization Information: ?Site ID: [id number] ?Name: Karol Damico-Nathaniel ?Address: [facility] Violette Suarez [place] [facility] [id number] ?Director: Orion Glynn D.O., MPH zA Allison MD LAB MICROBIOLOGY - GENERAL OR DERABLES Final Result Performing Organization Address City/State/ZIP Co me Phone Number KAROL [facility] - [facility] [place] from Last 3 Months or Most Recently Relevant to Health Maintenance Insurance [facility] WORKERS COMPENSATION GENERIC WORKERS COMPENSATION GENERIC Care Teams Negative Assembler Relationship Specialty Start Date End Date Hai Pradhan MD PCP - General Internal Medicine 09/20/22 Pascale Wolff MD Consulting Physician Sleep Medicine 12/06/19 Rudi Patel MD Resident Neurosurgery 06/08/21
--- OUTSIDE RECORDS SUMMARY | 2024-11-24 10:08 | XMS_ITS | Encounter Summary ---
Author Organization [facility] Address [address] [place] [address] Care Team Providers Care Rubber Printing Machine Operator Name Role Phone Pascale Wolff MD Unavailable Rudi Patel MD Unavailable [phone] Hai Pradhan MD Primary Care Provider [phone] Reason for Visit * Reason Comments Coronary Artery Disease Hyperlipidemia Encounter Details Date Type Department Care Team (Late st Contact Info) Description 09/20/2022 8:30 AM CDT Office Visit [place] [facility] at [address] [address] Mookie Esparza NP [address] [place] [id number] Coronary artery disease without angina pectoris, unspecified vessel or lesion type, unspecified whether [place] or transplanted heart (Primary Dx); Hypertension, unspecified type; Hyperlipidemia, unspecified hyperlipidemia type; Dyspnea, unspecified type Social History Tobacco Use Types Packs/Day Years [...] on file 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 Gender Identity Not on file Sexual Orientation Not on file documented as of this encounter Last Filed Vital Signs Vital Sign Reading Time Taken Comments Blood Pressure 117/74 09/20/2022 8:24 AM CDT Pulse 54 09/20/2022 8:24 AM CDT Temperature - - Respiratory Rate 16 09/20/2022 8:24 AM CDT Oxygen Saturation - - Inhaled Oxygen Concentration - - Weight 119.7 kg (264 lb) 09/20/2022 8:24 AM CDT Height 170.2 cm (5' 7 ) 09/20/2022 8:24 AM CDT Body Mass Index 41.35 09/20/2022 8:24 AM CDT documented in this encounter Progress Notes * Mookie Esparza NP - 09/20/2022 8:30 AM CDT Cardiology note Reason for Office Visit: CAD History of Present Illness: Javier Sanchez is a 52 y.o. male who presents to our office to reestablish care. He has a past medicalhistory of coronary artery disease, hypertension, hyperlipidemia, and obesity. He has not been seenin a few years. He denies chest pain, syncope, palpitations, or edema. He states that he is compliant with his medications. All his questions were answered he verbalized understanding with plan of care. He states that he has been having some dyspnea upon exertion when he walks up stairs recently. He said that he does have family history of heart problems and this concerned him. [facility] and [facility] evaluated. Weight is up. Past Medical History: Diagnosis Date Abnormal findings on cardiac catheterization 12/13/2014 Mild CAD, mildly decreased LV systolic function. See report, [facility], Dr. Perry. Acute bacterial sinusitis 10/13/2019 See [...] carpal tunnel syndrome, improved with conservative management. Review of systems: Review of Systems Constitutional: Negative. HENT: Negative. Eyes: Negative. Cardiovascular: Positive for dyspnea on exertion. Negative for chest pain, near- syncope, palpitations and syncope. Respiratory: Negative. Endocrine: Negative. Hematologic/Lymphatic: Negative. Skin: Negative. Musculoskeletal: Negative. Gastrointestinal: Negative. Neurological: Negative. Psychiatric/Behavioral: Negative. Family and Social history Family History Problem Relation Age of Onset Other Mother Age 67 alive and well.; Other Father Age 65 with unknow cancer.; Testicular cancer Father In his 40s Stomach cancer Father Kidney cancer Father Diabetes type II Paternal Grandmother Diabetes type II Paternal Grandfather Social History Tobacco Use Smoking status: Former Packs/day: 1.00 Years: 24.00 Pack years: 24.00 Types: Cigarettes Start date: 07/14/1990 Quit date: 06/25/2014 Years since quittin.2 Smokeless tobacco: Never Substance and Sexual Activity Drug use: No Sexual activity: Not on file Alcohol Use: Not on file Allergies Allergen Reactions Penicillins Rash Red itchy rash a day or two after starting it. Hydrocodone Stomach upset Medications: Current Outpatient Medications Medication Sig Dispense Refill albuterol HFA (PROVENTIL HFA,VENTOLIN HFA,PROAIR HFA) 90 mcg/actuation inhaler Inhale 2 puffs every6 (six) hours as needed for wheezing 1 Inhaler 5 aspirin 81 mg tablet Take 81 mg by mouth daily. azelastine (ASTELIN) 137 mcg (0.1 %) nasal spray Administer 1 spray into each nostril 2 (two) timesa day Use in each nostril as directed 30 mL 5 clindamycin (CLEOCIN) 300 mg capsule Take 1 capsule by mouth 3 (three) times a day as needed For dental infection DULoxetine DR (CYMBALTA) 60 mg capsule TAKE 1 CAPSULE (60 MG TOTAL) BY MOUTH DAILY 90 capsule 1 fluticasone propionate (FLONASE) 50 mcg/actuation nasal spray Administer 1 spray into each nostril daily 1 Inhaler 1 losartan (COZAAR) 100 mg tablet TAKE 1 TABLET (100 MG TOTAL) BY MOUTH DAILY 90 tablet 3 multivitamin (MULTIPLE VITAMINS) tablet tablet take 1 by Oral route daily 0 0 sildenafiL, pulm.hypertension, (REVATIO) 20 mg tablet Take 1 tablet (20 mg total) by mouth daily asneeded (Before sex) 60 tablet 3 No current facility-administered medications for this visit. Vital Signs: Vitals BP 117/74 (BP Location: Right arm, Patient Position: Sitting) Pulse 54 Resp 16 Ht 170.2 cm (5' 7 ) Wt 119.7 kg (264 lb) BMI 41.35 kg/m?? There were no vitals filed for this visit. Wt Readings from Last 3 Encounters: 09/20/22 119.7 kg (264 lb) 07/10/21 116.1 kg (256 lb) 03/30/21 115.2 kg (254 lb) Physical Exam: Physical Exam Constitutional: Appearance: Normal appearance. HENT: Head: Normocephalic. Nose: Nose normal. Eyes: Pupils: Pupils are equal, round, and reactive to light. Cardiovascular: Rate and Rhythm: Normal rate and regular rhythm. Pulmonary: Effort: Pulmonary effort is normal. Breath sounds: Normal breath sounds. Musculoskeletal: General: Normal range of motion. Cervical back: Normal range of motion. Skin: General: Skin is warm and dry. Capillary Refill: Capillary refill takes less than 2 seconds. Neurological: General: No focal deficit present. Mental Status: He is alert. Mental status is at baseline. Labs: No lab exists for component: KPLASMA No lab exists for component: LABALBU Lab Results Component Value Date CHOL 191 08/15/2020 TRIG 241 (H) 08/15/2020 HDL 38 (L) 08/15/2020 LDL 116 (H) 08/15/2020 Lab Results Component Value Date TSH 2.97 07/21/2019 Testing: No results found. No results found for this or any previous visit.] CARDIOGRAPHICS: Echo 02/2021 Conclusions: Normal left ventricular systolic function with no [...] due to inadequate visualization of TR jet. Cath 12/16/2014 IMPRESSION: 1. MILD CORONARY ARTERY DISEASE IN THIS [...] WILL GET ECHOCARDIOGRAM STUDY TO SEE IF THELV FUNCTION IS INDEED SLIGHTLY DIMINISHED. DIET, EXERCISE AND THERAPEUTIC LIFESTYLE CHANGES DISCUSSED WITH THE PATIENT. Impression and Plan: CAD dyspnea HTN HLD Obesity Plan Check echo/stress test Monitor BP and heart rate closely. Recheck lipids and continue aggressive statin treatment. Will recheck lipids and A1c again in 3 months Discussed with patient ongoing need for weight loss If testing above is negative will see back in 1 year Diagnoses and all orders for this visit: Coronary artery disease without angina pectoris, unspecified vessel or lesion type, unspecified whether [place] or transplanted heart (Primary) Hypertension, unspecified type Hyperlipidemia, unspecified hyperlipidemia type Dyspnea, unspecified type Thank you for the consult. We will be happy to follow in this patient's care. Mookie Esparza NPDATE@10:45 AM Cc:Az Allison MD documented in this encounter Plan of Treatment Not on file documented as of this encounter Results * (ABNORMAL) Hemoglobin A1c (09/20/2022 9:20 AM [...] children were not included. ?? (Diabetes Care 31:[id number], 2008). ??The eAG is not equivalent to a fasting glucose. Blood 09/20/2022 9:20 AM CDT 09/20/2022 11:59 AM CDT us Mookieflora Esparza BORDER MEASURER LAB BLOOD ORDERABLES Final R esult [facility] ([place]) [address] [facility] Department [place] [address] * (ABNORMAL) Lipid panel (09/20/2022 9:20 AM [...] on 2018. Non-HDL Cholesterol 140 mg/dL [facility] ([place]) Comment: Interpretive Data Ages < or = [...] on 2018. Chol/HDL ratio 5 [facility]ANDY [facility] ([place]) Blood 09/20/2022 9:20 AM CDT 09/20/2022 11:59 AM CDT us Mookie Yemi Esparza BORDER MEASURER LAB BLOOD ORDERABLES Final R esult [facility] ([place]) [address] [facility] Department of Laboratories [place], [place] [id number] documented in this encounter Visit Diagnoses Diagnosis Coronary artery disease without angina pectoris, unspecified vessel or lesion type, unspecified whether [place] or transplanted heart- Primary Hypertension, unspecified type Hyperlipidemia, unspecified hyperlipidemia type Dyspnea, unspecified type documented in this encounter Care Teams Rubber Printing Machine Operator Relationship Specialty Start Date End Date Hai Pradhan MD PCP - General Internal Medicine 09/20/22 Pascale Wolff MD Consulting Physician Sleep Medicine 12/06/19 Rudi Patel MD Resident Neurosurgery 06/08/21 documented as of this encounter
--- OUTSIDE RECORDS SUMMARY | 2024-11-24 10:08 | XMS_ITS | Encounter Summary ---
Author Organization [facility] Healthcare Address [address] [place] [address] Care Team Providers Care Environmental Health Technician Name Role Phone Pascale Wolff MD Unavailable Rudi Patel MD Unavailable [phone] Hai Pradhan MD Primary Care Provider [phone] Reason for Referral * Diagnostic Imaging (Routine) - Closed Specialty Diagnoses / Procedures Referred By Monster blackwell Referred To Contact Diagnoses Atypical chest pain Dyspnea, unspecified type Procedures NM MPI Spect (Rest And Stress) Multiple Studies Hai Pradhan MD Phone: tel: fax: [address] [address] Referral ID Status Reason Start Date Expiration Date Visits Re quested Visits Authorized [id number] Closed 06/16/2024 07/16/2025 1 1 Reason for Visit * Diagnostic Imaging (Routine) - Closed Specialty Diagnoses / Procedures Referred By Monster blackwell Referred To Contact Diagnoses Atypical chest pain Dyspnea, unspecified type Procedures NM MPI Spect (Rest And Stress) Multiple Studies Hia Pradhan MD Phone: tel: fax: [address] [address] Referral ID Status Reason Start Date Expiration Date Visits Re quested Visits Authorized [id number] Closed 06/16/2024 07/16/2025 1 1 Encounter Details Date Type Department Care Team (Latest Contact Info) Description 07/13/2024 7:24 AM CDT - 07/13/2024 11:59 PM CDT Hospital Encounter [facility] [address] [place] [address] Atypical chest pain; Dyspnea, unspecified type Discharge Disposition: Discharge to home or self [...] on file 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 LB: LB Report ID: [id number] Reading Location: [id number] Hai Pradhan MD [facility] PROCED[facility] Final Result documented in this encounter Visit Diagnoses Diagnosis Atypical chest pain Other chest pain Dyspnea, unspecified type Atypical chest pain Other chest pain Dyspnea, unspecified type documented in this encounter Administered Medications Inactive Administered Medications - up to 3 most recent administrations Medication Order MAR Action Action Date Dose Rate Site tc-99m tetrofosmin (MYOVIEW) injection 10.1 millicurie 10.1 millicurie, intravenous, Once in imaging, radiopharmaceutical, Starting on 07/13/24 at 0836, For 1 dose, Indications: Diagnostic RadiographyIndications:Mimi gnostic Radiography Given 07/13/2024 8:36 AM CDT 10.1 millicuries documented in this encounter Orders Medications Ordered That Rolo ht Not Have Been Administered Count Last Ordered Date First Ordered Date tc-99m tetrofosmin (MYOVIEW) injection 10.1 millicurie 1 07/13/2024 documented in this encounter Care Teams Environmental Health Technician Relationship Specialty Start Date End Date Hai Pradhan MD PCP - General Internal Medicine 09/20/22 Pascale Wolff MD Consulting Physician Sleep Medicine 12/06/19 Rudi Patel MD Resident Neurosurgery 06/08/21 documented as of this encounter
--- OUTSIDE RECORDS SUMMARY | 2024-11-24 10:08 | XMS_ITS | Continuity of Care Document ---
Author Organization [facility] Address [address] [place] [address] Phone Care Team Providers Care Catheterization Laboratory Technician Name Role Phone Christen Sood PT Unavailable Unavailable Procedures Procedure Date FCE Each 15min FCE Each 15min Advance Directives Directive Yes / No Effective Date File Name No Information Encounters Encounter Description Practice Location Reason(s) For Visit Diagnoses Date Provider Providers Copied on Encounter [facility], [address], [id number], tel:[phone] Ariel No Information Barrie Velásquez. . Referring Provider: [address], [place], [address]. tel:[phone] [facility], [address] [place] [address], [place], [id number], tel:[phone] Ariel No Information Gloria Dixon. [address] [place] [address], [address], . tel:[phone] Referring Provider: Ma[address], [place], [address]. tel:[phone] Family History Family Member Type Diagnosis Age At Onset No Information Payers Payer name Insurance type Covered green party ID Authoriza mary kaymalorie(s) Rubén [id number] Social History Type Description Quantity Date Captured Comments Sex Male Smoking Status No Information Chief Complaint And Reason For Visit No Information Reason For Referral Reason For Referral No Information History Of Present Illness Encounter Date Complaint History Of Prese nt Illness No Information Functional Status Date Functional Assessmen t No Information Instructions Date Instruction Additional Infor mation No Information Assessments Type Assessment Date No Information Patient Care Teams Name Effective Dates (start - stop) Status Members No Information
--- OUTSIDE RECORDS SUMMARY | 2024-11-24 10:08 | XMS_ITS | Encounter Summary ---
Author Organization [facility] Healthcare Address [address] [place] [address] Care Team Providers Care Radiographer Name Role Phone Pascale Wolff MD Unavailable Rudi Patel MD Unavailable [phone] Hai Pradhan MD Primary Care Provider [phone] Reason for Referral * Sleep Medicine (Routine) - Closed Specialty Diagnoses / Procedures Referred By Monster blackwell Referred To Contact Diagnoses ERICH (obstructive sleep apnea) Procedures Portable/Home Sleep Study Pascale Wolff MD [address] [place] [address] DR GINO [address] [address] Phone: tel: fax: [address] [phone] Referral ID Status Reason Start Date Expiration Date Visits Re quested Visits Authorized [id number] Closed 09/04/2024 10/04/2025 1 1 Reason for Visit * Sleep Medicine (Routine) - Closed Specialty Diagnoses / Procedures Referred By Monster blackwell Referred To Contact Diagnoses ERICH (obstructive sleep apnea) Procedures Portable/Home Sleep Study Pascale Wolff MD [address] [place] [address] DR GINO K[address] [address] Phone: tel: fax: [address] [phone] Referral ID Status Reason Start Date Expiration Date Visits Re quested Visits Authorized [id number] Closed 09/04/2024 10/04/2025 1 1 Encounter Details Date Type Department Care Team (Latest Contact Info) Description 09/17/2024 11:00 AM CDT - 09/17/2024 11:59 PM CDT Hospital Encounter [facility] [address] [place] [address] ERICH (obstructive sleep apnea) Discharge Disposition: Discharge [...] on file 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 Take 1 tablet (20 mg total) by mouth daily as needed (Before sex) 60 tablet 3 07/22/2020 documented as of this encounter Discharge Disposition Disposition Code Departure Means Destination Discharge to home or self care documented in this encounter Progress Notes * Pascale Wolff MD - 09/17/2024 11:00 AM CDT Indication for study: Mr. Sanchez is a 53-year-old gentleman chief complaints of snoring, unrefreshingsleep and daytime fatigue and sleepiness. The patient's Iola Sleepiness scale score is 8 Vital statistics: Age: 54 years BMI: 39.8 Procedure: Unless otherwise noted, respiratory events were scored in accordance with recommended parameters outlined in the AASM Manual for the Scoring of Sleep and Associated Events, Version 2.6 Hypopneas were scored in accordance with acceptable parameters as outline in Chapter IX, Part 1: HSAT utilizing Respiratory Flow and or Effort Parameters, Category H., Section 1b. This study was performed using a [place] apnea Link portable monitoring unit, a type 3 portable monitoring device. Variable monitored included nasal/oral pressure transduced airflow( PTAF), single respiratory effort (thoracic belt), snoring (derived from PTAF sensor) and pulse oximetry. Description of Polysomnography findings: The patient had 9 hours and 26 minutes of monitored time.9 hours and 14 minutes flow evaluation was present. 9 hours and 15 minutes oxygen saturation analysis was present. The apnea-hypopnea index was 30. The AHI was 30.3 in the supine position. There were 196 obstructive apneas and 81 hypopneas recorded. Baseline oxygen saturation was 98%. Lowest oxygen saturation was85%. Average oxygen saturation was 96%. There were 238 oxygen desaturation episodes recorded. The oxygen desaturation index was 25.7. Pulse evaluation revealed a maximum 106 beats per minute, minimum 46 beats per minute and [id number] beats per minute Impression: 1. Severe obstructive sleep apnea syndrome. 2. Consider Positive Airway Pressure (PAP) devices such as continuous PAP (CPAP), auto-adjusting PAP (APAP), and bi-level PAP (Bi-PAP). 3. CPAP titration to determine optimal pressure required to alleviate sleep disordered breathing 4. Sleep hygiene should be reviewed to assess factors that may improve sleep quality. 5. Weight management and regular exercise should be initiated or continued 6. Avoid alcohol sedatives and other SURGICAL NURSE depression that may worsen sleep apnea and [...] These factors should be taken into consideration. documented in this encounter Miscellaneous Notes * Result Encounter Note - Vibha Marks CMA - 09/17/2024 11:59 PM CDT Left voice message for patient to call back for sleep study results. Sent order to [facility]. * Result Encounter Note - Melanie Palacios MA - 09/17/2024 11:59 PM CDT Pt informed. documented in this encounter Plan of Treatment Not on file documented as of this encounter Procedures Procedure Name Priority Date/Time Associated Diagnosis Comments PORTABLE/HOME SLEEP STUDY Routine 09/18/2024 2:30 PM CDT ERICH (obstructive sleep apnea) documented in this encounter Results * Portable/Home Sleep Study (09/18/2024 2:30 PM CDT) Impressions Pascale Wolff MD - 09/18/2024 2:30 PM CDT Indication for study: Mr. Sanchez is a 53-year-old gentleman chief complaints of snoring, unrefreshing sleep and daytime fatigue and sleepiness. ??The patient's Iola Sleepiness scale score is 8 Vital statistics: [...] 1b. ??This study was performed using a ResLittle Pim apnea ??Link portable monitoring unit, a type [...] continued 6. Avoid alcohol sedatives and other SURGICAL NURSE depression that may worsen sleep apnea and [...] documented in this encounter Visit Diagnoses Diagnosis ERICH (obstructive sleep apnea) Obstructive sleep apnea (adult) (pediatric) documented in this encounter Care Teams Radiographer Relationship Specialty Start Date End Date Hai Pradhan MD PCP - General Internal Medicine 09/20/22 Pascale Wolff MD Consulting Physician Sleep Medicine 12/06/19 Rudi Patel MD Resident Neurosurgery 06/08/21 documented as of this encounter
--- OUTSIDE RECORDS SUMMARY | 2024-11-24 10:08 | XMS_ITS | Encounter Summary ---
Author Organization [facility] Address [address] [place] [address] Care Team Providers Care Bin Packer Name Role Phone Pascale Wolff MD Unavailable Rudi Patel MD Unavailable [phone] Hai Pradhan MD Primary Care Provider [phone] Reason for Referral * Neurology (Routine) - Pending Review Specialty Diagnoses / Procedures Referred By Monster blackwell Referred To Contact Diagnoses Cubital tunnel syndrome on right Procedures EMG/NCV - Hai Pradhan MD [address] [place] [address] Phone: tel: fax: [address] [address] Referral ID Status Reason Start Date Expiration Date V isits Requested Visits Authorized [id number] Pending Review 09/17/2024 10/17/2025 1 1 ALT ROLLER PERSON Reason for Visit * Neurology (Routine) - Pending Review Specialty Diagnoses / Procedures Referred By Monster blackwell Referred To Contact Diagnoses Cubital tunnel syndrome on right Procedures EMG/NCV - Hai Pradhan MD [address] [place] [address] Phone: tel: fax: [address] [address] Referral ID Status Reason Start Date Expiration Date V isits Requested Visits Authorized [id number] Pending Review 09/17/2024 10/17/2025 1 1 Encounter Details Date Type Department Care Team (Latest Contact Info) Description 11/09/2024 8:10 AM ASPHALT ROLLER PERSON - 11/09/2024 11:59 PM ASPHALT ROLLER PERSON Hospital Encounter [facility] Neurological Disorders Testing [address] [place] [address] Numbness and tingling of right hand [R20.0, [...] on file 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 Nerve conduction studies: Right median motor nerve conduction study showed normal DML, borderline low CMAP amplitude, normal motor nerve conduction velocity and normal F wave latency. Right ulnar motor nerve conduction study showed normal DML, borderline low CMAP amplitude, normal motor nerve conduction velocity below the elbow, slow motor nerve conduction velocity across the elbow and normal F wave latency. Right radial antidromic sensory nerve conduction study showed normal SNAP peak latency, normal amplitude and normal sensory nerve conduction velocity. Right ulnar and right median orthodromic sensory nerve conduction studies showed normal SNAP peak latencies, normal amplitudes and normal sensory nerve conductionvelocities. Right median and right radial SNAP peak latency comparison study using ring electrodes showed SNAP peak latency 1.7 ms for right radial nerve and 3.4 ms for right median nerve. EMG studies: The concentric needle electrode examination was performed on right FDI, APB, flexor carpi radialis,biceps and deltoid. There was no evidence of acute or chronic denervation or reinnervation. The interference pattern is full in all muscle tested. Impression: This is an abnormal study. There was electrophysiologic evidence suggestive of: 1. 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 2. 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 The needle EMG study of right upper extremity did not show any ongoing denervation. The clinical correlation is recommended. ALT ROLLER PERSON documented in this encounter Plan of Treatment Not on file documented as of this encounter Procedures Procedure Name Priority Date/Time Associated Diagnosis Comments EMG/NCV Routine 11/09/2024 9:30 AM ASPHALT ROLLER PERSON Cubital tunnel syndrome on right documented in this encounter Results * EMG/NCV - (11/09/2024 9:30 AM ASPHALT ROLLER PERSON) Anatomical Region Laterality Modality EMG, EMG Impressions 11/09/2024 9:31 AM ASPHALT ROLLER PERSON History: This is a 54 years old [...] denervation. The clinical correlation is recommended. ?? Hai Pradhan MD NEUROLOGY ORDERABLES Final Resu lt documented in this encounter Visit Diagnoses Diagnosis Numbness and tingling of right hand [R20.0, R20.2]- Primary Cubital tunnel syndrome on right documented in this encounter Care Teams Bin Packer Relationship Specialty Start Date End Date Hai Pradhan MD PCP - General Internal Medicine 09/20/22 Pascale Wolff MD Consulting Physician Sleep Medicine 12/06/19 Rudi Patel MD Resident Neurosurgery 06/08/21 documented as of this encounter
--- OUTSIDE RECORDS SUMMARY | 2024-11-24 10:08 | XMS_ITS | Encounter Summary ---
Author Organization [facility] Healthcare Address [address] [place] [address] Care Team Providers Care Mutual Fund Analyst Name Role Phone Pascale Wolff MD Unavailable Rudi Patel MD Unavailable [phone] Hai Pradhan MD Primary Care Provider [phone] Reason for Visit * Diagnostic Imaging (Routine) - Closed Specialty Diagnoses / Procedures Referred By Monster blackwell Referred To Contact Diagnoses Atypical chest pain Dyspnea, unspecified type Procedures NM MPI Spect (Rest And Stress) Multiple Studies Hai Pradhan MD Phone: tel: fax: [address] [address] Referral ID Status Reason Start Date Expiration Date Visits Re quested Visits Authorized [id number] Closed 06/16/2024 07/16/2025 1 1 Encounter Details Date Type Department Care Team (Latest Contact Info) Description 07/13/2024 7:25 AM CDT - 07/13/2024 11:59 PM CDT Hospital Encounter [facility] [address] [place] [id number] Discharge Disposition: Discharge to home or self [...] on file 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 Gender Identity Not on file Sexual Orientation [...] Dyspnea, unspecified type documented in this encounter Visit Diagnoses Not on filedocumented in this encounter Administered Medications Inactive Administered Medications - up to 3 most recent administrations Medication Order MAR Action Action Date Dose Rate Site tc-99m tetrofosmin (MYOVIEW) injection 33.8 millicurie 33.8 millicurie, intravenous, Once in imaging, radiopharmaceutical, Starting on Sat07/13/24 at 0848, For 1 dose, Indications: Diagnostic RadiographyIndications:Mimi gnostic Radiography Given 07/13/2024 8:49 AM CDT 33.8 millicuries documented in this encounter Orders Medications Ordered That Rolo ht Not Have Been Administered Count Last Ordered Date First Ordered Date tc-99m tetrofosmin (MYOVIEW) injection 33.8 millicurie 1 07/13/2024 documented in this encounter Care Teams Mutual Fund Analyst Relationship Specialty Start Date End Date Hai Pradhan MD PCP - General Internal Medicine 09/20/22 Pascale Wolff MD Consulting Physician Sleep Medicine 12/06/19 Rudi Patel MD Resident Neurosurgery 06/08/21 documented as of this encounter
--- OUTSIDE RECORDS SUMMARY | 2024-11-24 10:08 | XMS_ITS | Encounter Summary ---
Author Organization 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 Az Allison for primary care. You recentlysent your recent office visit note with Mr. Sanchez to Dr. Az Allison, but it would be preferable that you send to his current PCP. [facility] chart indicates patient's current PCP is listed as Dr. Hai Pradhan. Thank you! Jayla Herr, RN documented in this encounter Plan of Treatment Not on file documented as of this encounter Visit Diagnoses Not on filedocumented in this encounter Care Teams Charter Driver Relationship Specialty Start Date End Date Hai Pradhan MD PCP - General Internal Medicine 09/20/22 Pascale Wolff MD Consulting Physician Sleep Medicine 12/06/19 Rudi Patel MD Resident Neurosurgery 06/08/21 documented as of this encounter
--- OUTSIDE RECORDS SUMMARY | 2024-11-24 10:08 | XMS_ITS | Encounter Summary ---
Author Organization [facility] Healthcare Address [address] [place] [address] Care Team Providers Care Safety Consultant Name Role Phone Pascale Wolff MD Unavailable Rudi Patel MD Unavailable [phone] Hai Trejo MD Primary Care Provider [phone] Reason for Visit * Diagnostic Imaging (Routine) - Closed Specialty Diagnoses / Procedures Referred By Monster blackwell Referred To Contact Diagnoses Atypical chest pain Dyspnea, unspecified type Procedures NM MPI Spect (Rest And Stress) Multiple Studies Hai Trejo MD Phone: tel: fax: [address] [address] Referral ID Status Reason Start Date Expiration Date Visits Re quested Visits Authorized [id number] Closed 06/16/2024 07/16/2025 1 1 Encounter Details Date Type Department Care Team (Latest Contact Info) Description 07/13/2024 7:24 AM CDT - 07/13/2024 11:59 PM CDT Hospital Encounter [facility] Card[facility] [address] [place] [address] Atypical chest pain; Dyspnea, unspecified type Discharge [...] on file 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 Gender Identity Not on file Sexual Orientation [...] Procedure Name Priority Date/Time Associated Diagnosis Comments NM MPI SPECT (REST AND/OR STRESS) MULTIPLE STUDIES Schedule Routine, Read Routine (OP Routine) 07/13/2024 9:12 AM CDT Atypical chest pain Dyspnea, unspecified type STRESS TEST FOR DUAL READ Schedule Routine, Read Routine (OP Routine) 07/13/2024 9:12 AM CDT Atypical chest pain Dyspnea, unspecified type documented in this encounter Results * Stress Test for Myocardial Perfusion (07/13/2024 9:12 AM CDT) Anatomical Region Laterality Modality Nuclear Medicine 07/13/2024 7:45 AM CDT Narrative 07/13/2024 9:11 AM CDT [address] [address] [facility] Report Patient Name: JAVIER SANCHEZ R [...] Procedure Note Deion Perry MD - 07/13/[address] [place] [address] [facility] Report Patient Name: JAVIER SANCHEZ R [...] MD CV STRESS PROCEDURES Final Resu lt documented in this encounter Visit Diagnoses Diagnosis Atypical chest pain Other chest pain Dyspnea, unspecified type Atypical chest pain Other chest pain Dyspnea, unspecified type documented in this encounter Administered Medications Inactive Administered Medications - up to 3 most recent administrations Medication Order MAR Action Action Date Dose Rate Site regadenoson (LEXISCAN) 0.4 mg/5 mL injection 0.4 mg 0.4 mg, intravenous, Once, On 07/13/24 at 0800, For 1 dose, Intra-Procedure (CV), Administer IV push over 10 seconds., Indications: Myocardial Perfusion Imaging AdjunctIndications:Myocardial Perfusion Imaging Adjunct Given 07/13/2024 8:31 AM CDT 0.4 mg documented in this encounter Orders Medications Ordered That Rolo ht Not Have Been Administered Count Last Ordered Date First Ordered Date regadenoson (LEXISCAN) 0.4 m g/5 mL injection 0.4 mg 1 07/13/2024 documented in this encounter Care Teams Safety Consultant Relationship Specialty Start Date End Date Hai Trejo MD PCP - General Internal Medicine 09/20/22 Pascale Wolff MD Consulting Physician Sleep Medicine 12/06/19 Rudi Patel MD Resident Neurosurgery 06/08/21 documented as of this encounter
--- OUTSIDE RECORDS SUMMARY | 2024-11-24 10:09 | XMS_ITS | Encounter Summary ---
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 Gender Identity Not on file Sexual Orientation Not on file documented as of this encounter Plan of Treatment Not on file documented as of this encounter Procedures Procedure Name Priority Date/Time Associated Diagnosis Comments SCAN - RADIOLOGY/IMAGING 08/08/2021 documented in this encounter Results * SCAN - RADIOLOGY/IMAGING (08/08/2021) Anatomical Region Laterality Modality Other us Az Allison MD Edited Result - Final documented in this encounter Visit Diagnoses Not on filedocumented in this encounter Care Teams Locker Room Supervisor Relationship Specialty Start Date End Date Az Allison MD [address] [place] [address] PCP - General 02/22/17 09/19/22 Pascale Wolff MD [address] [place] [address] Consulting Physician Sleep Medicine 12/06/19 Rudi Patel MD [address] [place] [address] Resident Neurosurgery 06/08/21 documented as of this encounter
--- OUTSIDE RECORDS SUMMARY | 2024-11-24 10:09 | XMS_ITS | Encounter Summary ---
Author Organization [facility] Address [address] [place] [address] Care Team Providers Care Radio Division Officer Name Role Phone Az Allison MD Primary Care Provider [phone] Pascale Wolff MD Unavailable Rudi Patel MD Unavailable [phone] Encounter Details Date Type Department Care Team (Late st Contact Info) Description 06/19/2021 Telephone [facility] [address] [place] [address] Az Allison MD [address] [address] Social History Tobacco Use Types Packs/Day [...] on file 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 Gender Identity Not on file Sexual Orientation Not on file documented as of this encounter Ordered Prescriptions Prescription Sig Dispense Quantity Refills Last Filled Start Date End Date doxycycline (VIBRAMYCIN) 100 mg capsuleIndications: Acute pharyngitis due to other specified organisms Take 1 tablet/caps ule (100 mg total) by mouth every 12 (twelve) hours for 10 days 20 tablet/capsule 06/19/2021 06/30/2021 documented in this encounter Miscellaneous Notes * Telephone Encounter - Chuyita Hyman RN - 06/20/2021 12:09 PM CDT Called and informed pt of the message Pt verbalized understanding and will call us back with any questions or problems * Telephone Encounter - Az Allison MD - 06/19/2021 4:44 PM CDT Recommend symptomatic treatment per protocol. Standby Rx for doxycycline sent to his pharmacy. He can start taking it using his judgment, if especially he starts to run a fever or has a lot of coughing. * Assessment & Plan Note - Az Allison MD - 06/19/2021 4:43 PM CDT Associated Problem(s): Acute pharyngitis due to other specified organisms The patient states that for 5 days he has had a sore throat, nasal congestion. No cough no fever. Heis using Astelin and throat gargles nothing is helping he is getting worse. He is unable to come indue to poor mobility after back surgery. Recommended symptomatic treatment per protocol. Standby Rxfor doxycycline sent to his pharmacy. * Telephone Encounter - Chuyita Hyman RN - 06/19/2021 1:44 PM CDT TOES:Called and spoke with the pt He states that for 5 days he has had a sore throat Nasal congestion No cough no fever Pt is using Astelin and throat gargles nothing is helping he is getting worst Pt has a workman's comp for a double fusion of the spine and it is really hard for him to get around Pt would like us to call him in something for the symptoms Please advise * Telephone Encounter - Kenia Hancock - 06/19/2021 1:02 PM CDT [id number] patient [facility] Pt has symptoms of Sore throat Stuffy nose No fever Pt has just gargled with mouth wash and drinking lots of water. Pt has had symptoms for 4 days now . Pt had covid-19 last year and has had the covid-19 vaccines. Pt is currently home with a back injury and wants to know if would call something in. documented in this encounter Plan of Treatment Not on file documented as of this encounter Visit Diagnoses Diagnosis Acute pharyngitis due to other specified organisms- Primary documented in this encounter Care Teams Radio Division Officer Relationship Specialty Start Date End Date Az Allison MD [address] [address] PCP - General 02/22/17 09/19/22 Pascale Wolff MD [address] [address] Consulting Physician Sleep Medicine 12/06/19 Rudi Patel MD [address] [address] Resident Neurosurgery 06/08/21 documented as of this encounter
--- OUTSIDE RECORDS SUMMARY | 2024-11-24 10:09 | XMS_ITS | Encounter Summary ---
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 Initial treatment usually entails some nonsteroidal medication, a cock-up wrist splint, and possibly some physical therapy. The CTS does not explain his neck/jaw pain, and additional evaluation/imaging might be appropriate. He has a follow up in a few days, and we will discuss this with him at that time. documented in this encounter Plan of Treatment Not on file documented as of this encounter Visit Diagnoses Not on filedocumented in this encounter Care Teams Milled Rubber Tender Relationship Specialty Start Date End Date Az Allison MD [address] [place] [address] PCP - General 02/22/17 09/19/22 Pascale Wolff MD [address] [address] Consulting Physician Sleep Medicine 12/06/19 documented as of this encounter
--- OUTSIDE RECORDS SUMMARY | 2024-11-24 10:09 | XMS_ITS | Encounter Summary ---
Author Organization [facility] Address [address] [place] [address] Care Team Providers Care Toe Stapler Name Role Phone Az Allison MD Primary Care Provider [phone] Pascale Wolff MD Unavailable Rudi Patel MD Unavailable [phone] Reason for Referral * MRI/CAT/PET Scan (Routine) - Closed Specialty Diagnoses / Procedures Referred By Monster blackwell Referred To Contact Radiology Procedures MRI Cervical Spine WO Contrast [facility] [address] [place] [address] Phone: tel: Referral ID Status Reason Start Date Expiration Date Visits Re quested Visits Authorized [id number] Closed 08/18/2021 09/17/2022 1 1 Encounter Details Date Type Department Care Team (Late st Contact Info) Description 08/18/2021 Telephone [facility] [address] [place] [address] Gloria Hopper MA Social History Tobacco Use Types Packs/Day Years [...] on file 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 documented in this encounter Plan of Treatment Not on file documented as of this encounter Procedures Procedure Name Priority Date/Time Associated Diagnosis Comments MRI CERVICAL SPINE WO CONTRAST Schedule Routine, Read Routine (OP Routine) 08/08/2021 documented in this encounter Results * MRI Cervical Spine WO Contrast (08/08/2021) Anatomical Region Laterality Modality Spine N/A Magnetic Resonan ce Impressions 08/08/2021 MRI C-SPINE w/o CONTRAST Neck Pain and Right Upper Extremity Radiculopathy IMPRESSION: 1. 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 Narrative 08/08/2021 [facility] Historical Provider MD QUICK MRI PROCEDURES Final Result documented in this encounter Visit Diagnoses Not on filedocumented in this encounter Care Teams Toe Stapler Relationship Specialty Start Date End Date Az Allison MD [address] [place] [address] PCP - General 02/22/17 09/19/22 Pascale Wolff MD [address] [address] Consulting Physician Sleep Medicine 12/06/19 Rudi Patel MD [address] [address] Resident Neurosurgery 7/15/21 documented as of this encounter
--- OUTSIDE RECORDS SUMMARY | 2024-11-24 10:09 | XMS_ITS | Encounter Summary ---
Author Organization [facility] Address [address] [place] [address] Care Team Providers Care Passenger Attendant Name Role Phone Az Allison MD Primary Care Provider [phone] Pascale Wolff MD Unavailable Reason for Visit * Reason Comments Cough cough x 3 days, PCP sent him here, hx of COPD Encounter Details Date Type Department Care Team (Late st Contact Info) Description 10/04/2020 1:00 PM LOW PRESSURE KETTLE OPERATOR Office Visit [facility] [address] [place] [address] [place] [address] Tatiana De La Cruz, OUTSIDE PARTS SALES [address] [place] [address] Viral URI with cough (Primary Dx) Social History Tobacco Use Types Packs/Day Years [...] on file 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 Gender Identity Not on file Sexual Orientation Not on file documented as of this encounter Last Filed Vital Signs Vital Sign Reading Time Taken Comments Blood Pressure 136/80 10/04/2020 12:56 PM LOW PRESSURE KETTLE OPERATOR Pulse 64 10/04/2020 12:56 PM LOW PRESSURE KETTLE OPERATOR R 64 Temperature 36.8 ??C (98.3 ??F) 10/04/2020 12:[address] Respiratory Rate - - Oxygen Saturation 95% 10/04/2020 12:56 PM LOW PRESSURE KETTLE OPERATOR R 97 Inhaled Oxygen Concentration - - Weight 118.4 kg (261 lb) 10/04/2020 12:56 PM LOW PRESSURE KETTLE OPERATOR Height 170.2 cm (5' 7 ) 10/04/2020 12:56 PM LOW PRESSURE KETTLE OPERATOR Body Mass Index 40.88 10/04/2020 12:56 PM LOW PRESSURE KETTLE OPERATOR documented in this encounter Progress Notes * Tatiana De La Cruz, OUTSIDE PARTS SALES - 10/04/2020 1:00 PM CST Images from the original note were not included. Patient ID: Javier Sanchez is a 50 y.o. male followed by Az Allison MD Patient was wearing the following PPE: mask. MA was wearing the following PPE: mask, gown, gloves, face shield. Provider was wearing the following PPE: mask, gown, gloves, face shield. Patient presents to clinic for assessment of Chief Complaint Patient presents with ??? Cough cough x 3 days, PCP sent him here, hx of COPD . Patient reports PRODUCTIVE COUGH Patient reports this has been going on for 3 days. Patient with sick or suspected COVID-19 contacts:/NO Patient has following risks for COVID-19: Patient has chronic lung disease Past Medical History: Diagnosis Date ??? Abnormal findings on cardiac catheterization 12/13/2014 Mild CAD, mildly decreased LV systolic function. See report, Dr. Vicky RED. ??? Acute bacterial sinusitis 10/13/2019 See office note. ??? Chronic obstructive pulmonary disease ([facility]/HCC) 02/23/2010 COPD ??? Community acquired pneumonia of right lower lobe of lung 10/10/2019 See office note. Treated empirically. ??? Hyperglycemia 08/25/2014 Elevated blood sugar ??? Morbid obesity (CMS/HCC) 08/25/2013 Obesity ??? Non-recurrent acute suppurative otitis media of right ear without spontaneous rupture of tympanic membrane 01/31/2020 See office note. ??? Steatosis of liver 10/05/2014 Hepatic steatosis Current Outpatient Medications Medication Sig Dispense Refill ??? albuterol HFA (PROVENTIL HFA,VENTOLIN HFA,PROAIR HFA) 90 mcg/actuation inhaler Inhale 2 puffs every 6 (six) hours as needed for wheezing 1 Inhaler 5 ??? aspirin 81 mg tablet Take 81 mg by mouth daily. ??? azelastine (ASTELIN) 137 mcg (0.1 %) nasal spray Administer 1 spray into each nostril 2 (two) times a day Use in each nostril as directed 30 mL 5 ??? budesonide-formoteroL (SYMBICORT) 160-4.5 mcg/actuation inhaler Inhale 2 puffs 2 (two) times a day 1 Inhaler 5 ??? DULoxetine DR (CYMBALTA) 60 mg capsule Take 1 capsule (60 mg total) by mouth daily 90 capsule 3 ??? guaiFENesin ER (MUCINEX) 600 mg 12 hr tablet Take 600 mg by mouth 2 (two) times a day ??? losartan (COZAAR) 100 mg tablet Take 1 tablet (100 mg total) by mouth daily 90 tablet 3 ??? multivitamin (MULTIPLE VITAMINS) tablet tablet take 1 by Oral route daily 0 0 ??? sildenafiL, pulm.hypertension, (REVATIO) 20 mg tablet Take 1 tablet (20 mg total) by mouth daily as needed (Before sex) 60 tablet 3 No current facility-administered medications for this visit. Immunization History Administered Date(s) Administered ??? Hep A / Hep B 07/28/2019 ??? Influenza, Quadrivalent, Cell Culture-based MDCK, Preservative Free, Antibiotic Free, Intramuscular 08/27/2020 ??? Influenza, Quadrivalent, Split, Intramuscular 09/03/2016, 08/30/2017 ??? Influenza, Quadrivalent, Split, Preservative Free, Intramuscular 10/13/2018 ??? Influenza, Trivalent, Intramuscular 07/26/2014, 09/15/2015, 08/31/2016 ??? Influenza, Unspecified 09/09/2017, 08/29/2019 ??? MMR 07/17/2019 ??? Pneumococcal Conjugate PCV 13 07/17/2019 ??? Pneumococcal Polysaccharide PPV23 06/07/2010, 08/10/2014, 02/06/2018 ??? TD Preservative Free 05/25/2007, 09/17/2014 ??? Td, adsorbed 05/25/2007 Social History Tobacco Use Smoking Status Former Smoker ??? Packs/day: 1.00 ??? Years: 24.00 ??? Pack years: 24.00 ??? Start date: 07/14/1990 ??? Quit date: 06/25/2014 ??? Years since quittin.2 Smokeless Tobacco Never Used Vitals: 10/04/20 1256 BP: 136/80 BP Location: Left arm Patient Position: Sitting Pulse: 64 Temp: 36.8 ??C (98.3 ??F) TempSrc: Oral SpO2: 95% Weight: 118.4 kg (261 lb) Height: 170.2 cm (5' 7 ) Chief Complaint Patient presents with ??? Cough cough x 3 days, PCP sent him here, hx of COPD Presents to clinic for cough, congestion, headache, sore throat, body aches, fatigue, chills x3 days. He has taken tylenol. He needs a covid test. Cough This is a new problem. The current episode started in the past 7 days. The problem has been gradually worsening. The cough is productive of sputum. Associated symptoms include chills, headaches, myalgias, nasal congestion, postnasal drip and a sore throat. Pertinent negatives include no fever. Treat ments tried: tylenol. The treatment provided no relief. Review of Systems Constitutional: Positive for chills and fatigue. Negative for fever. HENT: Positive for congestion, postnasal drip and sore throat. Respiratory: Positive for cough. Gastrointestinal: Negative for nausea and vomiting. Musculoskeletal: Positive for myalgias. Neurological: Positive for headaches. Physical Exam Vitals signs reviewed. Constitutional: General: He is not in acute distress. Appearance: Normal appearance. He is well-developed. HENT: Head: Normocephalic. Right Ear: Hearing, tympanic membrane, ear canal and external ear normal. Left Ear: Hearing, tympanic membrane, ear canal and external ear normal. Nose: Right Sinus: No maxillary sinus tenderness or frontal sinus tenderness. Left Sinus: No maxillary sinus tenderness or frontal sinus tenderness. Mouth/Throat: Mouth: Mucous membranes are moist. Pharynx: Oropharynx is clear. Eyes: Conjunctiva/sclera: Conjunctivae normal. Neck: Musculoskeletal: Normal range of motion and neck supple. Cardiovascular: Rate and Rhythm: Normal rate and regular rhythm. Pulmonary: Effort: Pulmonary effort is normal. Breath sounds: Normal breath sounds and air entry. Musculoskeletal: Normal range of motion. Lymphadenopathy: Cervical: No cervical adenopathy. Skin: General: Skin is warm and dry. Neurological: General: No focal deficit present. Mental Status: He is alert and oriented to person, place, and time. GCS: GCS eye subscore is 4. GCS verbal subscore is 5. GCS motor subscore is 6. Sensory: Sensation is intact. Gait: Gait is intact. Psychiatric: Speech: Speech normal. Behavior: Behavior normal. Assessment/Plan Swabbed for COVID-19 today in clinic. Patient aware they will be called with the results in 1-3 days. Patient instructed to self isolate until called with results and they will be notified at that timeif they need to continue self isolation and for how long. Discussed home self care, follow up needs and signs and symptoms that warrant immediate medical attention. Discussed COVID testing reasoning Reviewed isolation/quarantine protocols Discussed symptomatic relief of symptoms Discussed need to return to ER for further evaluation including worsening fevers, shortness of breath, of other concerning symptoms Advised to rest and stay adequately hydrated Advised to stay out of work and excuse given explaining when patient can return to work Diagnoses and all orders for this visit: Viral URI with cough (Primary) - COVID-19 Coronavirus RNA Nasopharyngeal; Future Orders Placed This Encounter Procedures ??? COVID-19 Coronavirus RNA Nasopharyngeal Standing Status: Future Standing Expiration Date: 10/04/2021 Order Specific Question: Is the patient experiencing any symptoms consistent with COVID (eg. Fever,cough, shortness of breath)? Answer: Yes Order Specific Question: What is the reason for testing? Answer: Symptoms compatible with COVID-19 in high-risk group (defined above in process inst.) Order Specific Question: Date of symptom onset Answer: 10/01/2020 Order Specific Question: Is the patient hospitalized? Answer: No Order Specific Question: Is the patient admitted to an ICU? Answer: No Order Specific Question: Is this the first COVID-19 test for this patient? Answer: Unknown Order Specific Question: Does the patient currently work in a healthcare facility with direct patient contact? Answer: No Order Specific Question: Is the patient a resident of a congregate care or living setting? Answer: No Order Specific Question: Is the patient ? Answer: No PRESSURE KETTLE OPERATOR documented in this encounter Plan of Treatment Not on file documented as of this encounter Results * (ABNORMAL) COVID-19 Coronavirus RNA Nasopharyngeal (10/04/2020 12:10 PM LOW PRESSURE KETTLE OPERATOR) COVID-19 RNA Detected(A) CERNER CH Comment: Interpretive Data Testing performed at [facility]. The 2019-Novel Coronavirus Assay (COVID-19) Real Time RT-PCR assay is for in vitro diagnostic use under FDA emergency use authorization only. A negative RT-PCR result does not preclude infection with COVID-19 and should not be used as the sole basis for treatment or other patient management decisions. Additional sample types have been validated according to CLIA regulations. ?? Current Interpretive Data was last revised on 2020. Testing performed by: [facility], [address] [place] [address], [id number] First COVID-19 test? Unknown CERNER CH Comment:Testing performed by : [address], [address] Employeed in healthcare? No CERNER CH Comment:Testing performed by : [address], [address] status? No CERNER CH Comment:Testing performed by : [facility], [address] [place] [address], [id number] Group care resident? No CERNER CH Comment:Testing performed by : [address], [address] Hospitalized? No CERNER CH Comment:Testing performed by : [facility], [address] [place] [address], [address] Is patient in ICU? No CERNER CH Comment:Testing performed by : [address], [address] Symptomatic as defined by CDC? Yes CERNER CH Comment:Testing performed by : [facility], [address] [facility], [place]., [address] Nasopharyngeal 10/04/2020 12 :10 PM LOW PRESSURE KETTLE OPERATOR 10/05/2020 12:10 AM LOW PRESSURE KETTLE OPERATOR Narrative NAYANA MASTERSON - 10/06/2020 1:34 AM LOW PRESSURE KETTLE OPERATOR What is the reason for testing?->Symptoms compatible with COVID-19 in high-risk group (defined above in process inst.) Date of symptom onset->10/01/20 Tatiana De La Cruz OUTSIDE PARTS SALES LAB MICROBIOLOGY - [facility] ORDERABLES Final Result NAYANA MASTERSON [id number] [address] Department [place] [address] documented in this encounter Visit Diagnoses Diagnosis Viral URI with cough- Primary Viral URI with cough documented in this encounter Additional Health Concerns Infection Onset Date Last Indicated Resolved Time COVID: Suspected 10/04/2020 10/04/2020 10/06/2020 1:34 AM LOW PRESSURE KETTLE OPERATOR documented as of this encounter Care Teams Passenger Attendant Relationship Specialty Start Date End Date Az Allison MD [address] [place] [address] PCP - General 02/22/17 09/19/22 Pascale Wolff MD [address] [address] Consulting Physician Sleep Medicine 12/06/19 documented as of this encounter
--- OUTSIDE RECORDS SUMMARY | 2024-11-24 10:09 | XMS_ITS | Encounter Summary ---
Author Organization [facility] Healthcare Address [address] [place] [address] Care Team Providers Care Him Tech Name Role Phone Az Allison MD Primary Care Provider [phone] Pascale Wolff MD Unavailable Reason for Visit * Reason Comments Earache Encounter Details Date Type Department Care Team (Late st Contact Info) Description 10/25/2020 2:32 AM SOCIAL SERVICES DIRECTOR - 10/25/2020 2:55 AM SOCIAL SERVICES DIRECTOR Emergency [facility] Emergency Department [address] [place] [address] Mega Dave MD [address] [address] Other non-recurrent acute nonsuppurative otitis media of left ear (Primary Dx) Discharge Disposition: Discharge to home [...] on file Legal Sex Male 9:12 AM SOCIAL SERVICES DIRECTOR Gender Identity Not on file Sexual Orientation Not on file documented as of this encounter Last Filed Vital Signs Vital Sign Reading Time Taken Comments Blood Pressure 140/68 10/25/2020 2:38 AM SOCIAL SERVICES DIRECTOR Pulse 88 10/25/2020 2:38 AM SOCIAL SERVICES DIRECTOR Temperature 36.6 ??C (97.8 ??F) 10/25/2020 2:38 AM CS T Respiratory Rate 18 10/25/2020 2:38 AM SOCIAL SERVICES DIRECTOR Oxygen Saturation 100% 10/25/2020 2:38 AM SOCIAL SERVICES DIRECTOR Inhaled Oxygen Concentration - - Weight 118.4 kg (261 lb 0.4 oz) 10/25/2020 2:34 AM SOCIAL SERVICES DIRECTOR Height 170.2 cm (5' 7.01 ) 10/25/2020 2:34 AM CS T Body Mass Index 40.87 10/25/2020 2:34 AM SOCIAL SERVICES DIRECTOR documented in this encounter Discharge Diagnoses Diagnosis Other acute nonsuppurative otitis media, left ear - OTHER ACUTE NONSUPPURATIVE OTITIS MEDIA, LEFT EAR Essential (primary) hypertension - ESSENTIAL (PRIMARY) HYPERTENSION Unspecified essential hypertension Hyperlipidemia, unspecified - HYPERLIPIDEMIA, UNSPECIFIED Chronic obstructive pulmonary disease, unspecified (HCC) - CHRONIC OBSTRUCTIVE PULMONARY DISEASE, UNSPECIFIED Atherosclerotic heart disease of [place] coronary artery without angina pectoris - ATHEROSCLEROTIC HEART DISEASE OF [place] CORONARY ARTERY WITHOUT ANGINA PECTORIS Fatty (change of) liver, not elsewhere classified - FATTY (CHANGE OF) LIVER, NOT ELSEWHERE CLASSIFIED Personal history of nicotine dependence - PERSONAL HISTORY OF NICOTINE DEPENDENCE documented in this encounter Medications at Time of Discharge albuterol HFA (PROVENTIL HFA,VENTOLIN HFA,PROAIR HFA) 90 mcg/actuation inhalerIndications :Bronchospasm Prevention Inhale 2 puffs every 6 (six) hours as needed for wheezing 1 Inhaler 5 07/22/2020 aspirin 81 mg tablet Take 81 mg by mouth daily. azelastine (ASTELIN) 137 mcg (0.1 %) nasal sprayIndications:D ysfunction of both eustachian tubes Administer 1 spray into each nostril 2 (two) times a day Use in each nostril as directed 30 mL 5 10/03/2020 clindamycin (CLEOCIN) 300 mg capsule Take 1 capsule by mouth 3 (three) times a day as needed For dental infection 04/25/2020 multivitamin (MULTIPLE VITAMINS) tablet tablet take 1 by Oral route daily 0 0 09/06/2016 sildenafiL, pulm.hypertension, (REVATIO) 20 mg tabletIndications: Erectile dysfunction. Take 1 tablet (20 mg total) by mouth daily as needed (Before sex) 60 tablet 3 07/22/2020 budesonide-formote roL (SYMBICORT) 160-4.5 mcg/actuation inhalerIndications :Bronchospasm Prevention with COPD Inhale 2 puffs 2 (two) times a day 1 Inhaler 5 07/22/2020 1 cefadroxil (DURICEF) 500 mg capsuleIndications :Upper Respiratory/HEENT Infection Take 1 capsule (500 mg total) by mouth 2 (two) times a day 20 capsule 10/25/[address] (CYMBALTA) 60 mg capsuleIndications :Chronic midline low back pain without sciatica,Persisten t mood disorder (HCC) Take 1 capsule (60 mg total) by mouth daily 90 capsule 3 07/22/2020 1 guaiFENesin ER (MUCINEX) 600 mg 12 hr tablet Take 600 mg by mouth 2 (two) times a day 10/03/2020 0 losartan (COZAAR) 100 mg tabletIndications: Essential hypertension Take 1 tablet (100 mg total) by mouth daily 90 tablet 3 07/22/2020 1 traMADoL (ULTRAM) 50 mg tablet Take 1 tablet (50 mg total) by mouth every 4 (four) hours as needed for pain 20 tablet 10/25/2020 1 documented as of this encounter Ordered Prescriptions Prescription Sig Dispense Quantity Refills Last Filled Start Date End Date cefadroxil (DURICEF) 500 mg capsuleIndications :Upper Respiratory/HEENT Infection Take 1 capsule (500 mg total) by mouth 2 (two) times a day 20 capsule 10/25/2020 0 traMADoL (ULTRAM) 50 mg tablet Take 1 tablet (50 mg total) by mouth every 4 (four) hours as needed for pain 20 tablet 10/25/2020 1 cefadroxil (DURICEF) 500 mg capsuleIndications :Upper Respiratory/HEENT Infection Take 1 capsule (500 mg total) by mouth 2 (two) times a day 20 capsule 10/25/2020 0 documented in this encounter Discharge Disposition Disposition Code Departure Means Destination Discharge to home or self care documented in this encounter ED Notes * Mega Dave MD - 10/25/2020 2:42 AM CST HPI Chief Complaint Patient presents with ??? Earache 50-year-old with a history of hypertension, hyperlipidemia here with the complaints of left ear pain started about 6 hours ago. He denies any fever or chills, no history of trauma Patient History: Patient Active Problem List Diagnosis Date Noted ??? Dysfunction of both eustachian tubes 09/29/2020 ??? Male erectile disorder 12/26/2019 ??? Severe obstructive sleep apnea 11/19/2019 ??? Diarrhea 11/13/2019 ??? Verruca vulgaris 10/31/2019 ??? Steatohepatitis, non-alcoholic 07/26/2019 ??? Other fatigue 12/26/2018 ??? Non morbid obesity 10/24/2018 Class: Chronic ??? Mixed hyperlipidemia 10/22/2018 ??? Polycythemia 06/07/2018 ??? Essential hypertension 02/06/2018 Class: Chronic ??? Elevated serum creatinine 01/23/2015 ??? Chronic coronary artery disease 12/13/2014 ??? LV dysfunction 12/13/2014 ??? Steatosis of liver 10/05/2014 Class: Chronic ??? Hyperglycemia 08/25/2014 Class: Chronic ??? Mild persistent asthma without complication 08/25/2012 Class: Chronic ??? Chronic obstructive pulmonary disease (CMS/HCC) 02/23/2010 Class: Chronic ??? Low back pain 08/25/2007 Class: Chronic ??? Persistent mood disorder (CMS/HCC) 08/25/1996 Class: Chronic Past Medical History: Diagnosis Date ??? Abnormal findings on cardiac catheterization 12/13/2014 Mild CAD, mildly decreased LV systolic function. See report, [facility], Dr. Perry. ??? Acute bacterial sinusitis 10/13/2019 See office note. ??? Chronic obstructive pulmonary disease (CMS/HCC) 02/23/2010 COPD ??? Community acquired pneumonia of right lower lobe of lung 10/10/2019 See office note. Treated empirically. ??? Hyperglycemia 08/25/2014 Elevated blood sugar ??? Morbid obesity ([facility]/HCC) 08/25/2013 Obesity ??? Non-recurrent acute suppurative otitis media of right ear without spontaneous rupture of tympanic membrane 01/31/2020 See office note. ??? Steatosis of liver 10/05/2014 Hepatic steatosis Past Surgical History: Procedure Laterality Date ??? CARDIAC CATHETERIZATION Left 12/13/2014 Mild CAD, mildly diminished LVEF, Dr. Perry, [facility]. ??? CARPAL TUNNEL RELEASE Bilateral 2013 Dr. Fajardo ??? SHOULDER ARTHROSCOPY W/ SUBACROMIAL DECOMPRESSION AND DISTAL CLAVICLE EXCISION 2001 Dr. Henriquez. ??? SPINAL FUSION 2009 L5-S1 Family History Problem Relation Age of Onset ??? Other Mother Age 67 alive and well.; ??? Other Father Age 65 with unknow cancer.; ??? Testicular cancer Father In his 40s ??? Stomach cancer Father ??? Kidney cancer Father ??? Diabetes type II Paternal Grandmother ??? Diabetes type II Paternal Grandfather Social History Tobacco Use ??? Smoking status: Former Smoker Packs/day: 1.00 Years: 24.00 Pack years: 24.00 Start date: 07/14/1990 Quit date: 06/25/2014 Years since quittin.3 ??? Smokeless tobacco: Never Used Substance Use Topics ??? Alcohol use: No ??? Drug use: No Social History Social History Narrative ??? Not on file Review of Systems Review of Systems Constitutional: Negative. HENT: Positive for ear pain. Eyes: Negative. Respiratory: Negative. Cardiovascular: Negative. Gastrointestinal: Negative. Musculoskeletal: Negative. Neurological: Negative. Hematological: Negative. Psychiatric/Behavioral: Negative. Physical Exam ED Triage Vitals [10/25/20 0238] Temp Pulse Resp BP SpO2 36.6 ??C (97.8 ??F) 88 18 140/68 100 % Temp src Heart Rate Source Patient Position BP Location FiO2 (%) Temporal -- -- -- -- Physical Exam Vitals signs and nursing note reviewed. Constitutional: Appearance: Normal appearance. He is normal weight. HENT: Head: Normocephalic and atraumatic. Comments: Left tympanic membrane erythematous and dull Nose: Nose normal. Eyes: Extraocular Movements: Extraocular movements intact. Pupils: Pupils are equal, round, and reactive to light. Neck: Musculoskeletal: Normal range of motion and neck supple. Cardiovascular: Rate and Rhythm: Normal rate and regular rhythm. Pulses: Normal pulses. Heart sounds: Normal heart sounds. Pulmonary: Effort: Pulmonary effort is normal. Breath sounds: Normal breath sounds. Abdominal: General: Abdomen is flat. Palpations: Abdomen is soft. Musculoskeletal: Normal range of motion. Skin: General: Skin is warm. Neurological: General: No focal deficit present. Mental Status: He is alert and oriented to person, place, and time. Mental status is at baseline. MDM MDM Final diagnoses: Other non-recurrent acute nonsuppurative otitis media of left ear Mega Dave MD 10/25/20 0247 AL SERVICES DIRECTOR * Jayla Coon RN - 10/25/2020 2:32 AM CST Patient presents to the emergency room for evaluation of left ear pain x 6 hours. Patient states hetook three tylenol with no relief. NAD. AL SERVICES DIRECTOR documented in this encounter Plan of Treatment Not on file documented as of this encounter Visit Diagnoses Diagnosis Other non-recurrent acute nonsuppurative otitis media of left ear- Primary documented in this encounter Discontinued Medications Medication Sig Discontinue Reason Start Date End Da te cefadroxil (DURICEF) 500 mg capsuleIndications:Upper Respiratory/HEENT Infection Take 1 capsule (500 mg total) by mouth 2 (two) times a day Reorder 10/25/2020 10/25/2020 documented as of this encounter Additional Health Concerns Infection Onset Date Last Indicated Resolved Time COVID: Recovered Comment:Added based on recent COVID infection. 10/18/2020 10/18/2020 02/15/2021 3:05 AM C DT documented as of this encounter Care Teams Him Tech Relationship Specialty Start Date End Date Az Allison MD [address] [place] [address] PCP - General 02/22/17 09/19/22 Pascale Wolff MD [address] [place] [address] Consulting Physician Sleep Medicine 12/06/19 documented as of this encounter
--- OUTSIDE RECORDS SUMMARY | 2024-11-24 10:09 | XMS_ITS | Encounter Summary ---
Author Organization [facility] Healthcare Address [address] [place] [address] Care Team Providers Care Commercial Green Building Designer Name Role Phone Az Allison MD Primary Care Provider [phone] Pascale Wolff MD Unavailable Encounter Details Date Type Department Care Team (Late st Contact Info) Description 10/04/2020 5:20 PM FORESTRY BIOLOGY SPECIALIST Lab [address] [address] Viral URI with cough Social History Tobacco Use Types Packs/Day Years [...] on file Legal Sex Male 9:12 AM FORESTRY BIOLOGY SPECIALIST Gender Identity Not on file Sexual Orientation Not on file documented as of this encounter Miscellaneous Notes * Result Encounter Note - Jayla Garrison MA - 10/06/2020 10:27 AM FORESTRY BIOLOGY SPECIALIST Faxed to [facility] STRY BIOLOGY SPECIALIST documented in this encounter Plan of Treatment Not on file documented as of this encounter Procedures Procedure Name Priority Date/Time Associated Diagnosis Comments COVID-19 CORONAVIRUS RNA Routine 10/04/2020 12:10 PM FORESTRY BIOLOGY SPECIALIST Viral URI with cough documented in this encounter Results * (ABNORMAL) COVID-19 Coronavirus RNA Nasopharyngeal (10/04/2020 12:10 PM FORESTRY BIOLOGY SPECIALIST) COVID-19 RNA Detected(A) CERNER CH Comment: Interpretive Data Testing performed at [facility] Molecular Infectious Disease Laboratory. The 2018-Novel Coronavirus Assay (COVID-19) Real Time RT-PCR assay [...] last revised on 2020. Testing performed by: [facility], [address] [place] [address], [id number] First COVID-19 test? Unknown CERNER CH Comment:Testing performed by : [facility], [address] [place] [address], [address] Employeed in healthcare? No CERNER CH Comment:Testing performed by : [address], [address] status? No CERNER CH Comment:Testing performed by : [address], [address] Group care resident? No CERNER CH Comment:Testing performed by : [facility], [address] [place] [address], [address] Hospitalized? No CERNER CH Comment:Testing performed by : [facility], [address] [place] [address], [address] Is patient in ICU? No CERNER CH Comment:Testing performed by : [address], [address] Symptomatic as defined by CDC? Yes CERNER CH Comment:Testing performed by : [facility], [address] [place]., [address] Nasopharyngeal 10/04/2020 12 :10 PM FORESTRY BIOLOGY SPECIALIST 10/05/2020 12:10 AM FORESTRY BIOLOGY SPECIALIST Narrative ANYANA MASTERSON - 10/06/2020 1:34 AM FORESTRY BIOLOGY SPECIALIST What is the reason for testing?->Symptoms compatible with COVID-19 in high-risk group (defined above in process inst.) Date of symptom onset->10/01/20 Tatiana De La Cruz COMPENSATOR LAB MICROBIOLOGY - [facility] ORDERABLES Final Result [facility] [address] Department [place] [address] documented in this encounter Visit Diagnoses Diagnosis Viral URI with cough documented in this encounter Additional Health Concerns Infection Onset Date Last Indicated Resolved Time COVID: Suspected 10/04/2020 10/04/2020 10/06/2020 1:34 AM FORESTRY BIOLOGY SPECIALIST documented as of this encounter Care Teams Commercial Green Building Designer Relationship Specialty Start Date End Date Az Allison MD [address] [place] [address] PCP - General 02/22/17 09/19/22 Pascale Wolff MD [address] [address] Consulting Physician Sleep Medicine 12/06/19 documented as of this encounter
--- OUTSIDE RECORDS SUMMARY | 2024-11-24 10:09 | XMS_ITS | Encounter Summary ---
Author Organization [facility] Healthcare Address [address] [place] [address] Care Team Providers Care Solid Die Cutter Name Role Phone Thelma Allison MD Primary Care Provider [phone] Pascale Wolff MD Unavailable Reason for Referral * Cardiology (Routine) - Closed Specialty Diagnoses / Procedures Referred By Contac t Referred To Contact Diagnoses SOB (shortness of breath) Procedures Transthoracic Echo Complete W Doppler/CF Thelma Allison MD [address] [place], [place] [address], [place] [address] Phone: tel: fax: [address] [phone] Referral ID Status Reason Start Date Expiration Date Visits Re quested Visits Authorized [id number] Closed 01/27/2021 02/26/2022 1 1 Reason for Visit * Cardiology (Routine) - Closed Specialty Diagnoses / Procedures Referred By Contsanna blackwell Referred To Contact Diagnoses SOB (shortness of breath) Procedures Transthoracic Echo Complete W Doppler/CF Thelma Allison MD [address] [place] [address] Phone: tel: fax: [address] [phone] Referral ID Status Reason Start Date Expiration Date Visits Re quested Visits Authorized [id number] Closed 01/27/2021 02/26/2022 1 1 Encounter Details Date Type Department Care Team (Late st Contact Info) Description 03/24/2021 7:30 AM CDT - 03/24/2021 8:59 AM CDT Hospital Encounter [facility] Cardiology [address] [place] [address] Thelma Allison MD [address] [place] [address] SOB (shortness of breath) Discharge Disposition: Discharge to home or self [...] on file Legal Sex Male 9:12 AM AGENT Gender Identity Not on file Sexual Orientation Not on file documented as of this encounter Last Filed Vital Signs Vital Sign Reading Time Taken Comments Blood Pressure - - Pulse - - Temperature - - Respiratory Rate - - Oxygen Saturation - - Inhaled Oxygen Concentration - - Weight 115.7 kg (255 lb) 03/24/2021 7:43 AM CDT Height 170.2 cm (5' 7 ) 03/24/2021 7:43 AM CDT Body Mass Index 39.94 03/24/2021 7:43 AM CDT documented in this encounter Medications at Time [...] needed (Before sex) 60 tablet 3 07/22/[address] (CYMBALTA) 60 mg capsuleIndications :Chronic midline low back pain without sciatica,Persisten t mood disorder (HCC) Take 1 capsule (60 mg total) by mouth daily 90 capsule 3 07/22/2020 1 losartan (COZAAR) 100 mg tabletIndications: Essential hypertension Take 1 tablet (100 mg total) by mouth daily 90 tablet 3 07/22/2020 1 documented as of this encounter Discharge Disposition Disposition Code Departure Means Destination Discharge to home or self care documented in this encounter Plan of Treatment Not on file documented as of this encounter Procedures Procedure Name Priority Date/Time Associated Diagnosis Comments TRANSTHORACIC ECHO (TTE) COMPLETE W DOPPLER/CF WO CONTRAST Routine 03/24/2021 8:10 AM CDT SOB (shortness of breath) documented in this encounter Results * TRANSTHORACIC ECHO (TTE) COMPLETE W DOPPLER/CF WO CONTRAST (03/24/2021 8:10 AM CDT) Anatomical Region Laterality Modality Ultrasound 03/24/2021 7:45 AM CDT Narrative 03/24/2021 1:25 PM CDT [address] [place] [address] Echocardiogram Report Patient Name: JAVIER SANCHEZ R : 1970 Study Date: 03/24/2021 07:45:59 Gender: M Tech: ODD SHOE EXAMINER Location: Echo Lab 3 Ref.Provider: THELMA ALLISON Height(Cm): 170 BSA: 2.34 Weight(Kg): 115.7 Quality: Adequate Order Provider: THELMA ALLISON Procedures: Echocardiographic Report: Transthoracic echocardiogram with complete 2D, M-Mode, and color Doppler examination. Indications: anesthesia of skin, SOB. Measurements: 2D/M Mode ?Doppler ? Measurement ?Value ?Normal Range ? Measurement ?Value ?Normal Range ? EF Teich MM ?64.0 ? [ 55.0 - 70.0 ] percent ?AV Mean PG ? 3 ?[ 2 - 4 ] mmHg ? LVIDd MM ? 5.60 ? [ 4.20 - 5.90 ] cm ? AV Peak Noe ?1.09 ? [ 1.00 - 1.70 ] m/s ? LVIDs MM ? 3.60 ? [ 2.30 - 3.90 ] cm ? AV VTI ? 27.67 ?cm ? LVPWd MM ? 1.90 ? [ 0.60 - 1.00 ] cm ? LVOT Peak Noe ?1.00 ? [ 0.70 - 1.10 ] m/s ? IVSd MM ?1.00 ? [ 0.60 - 0.90 ] cm ? LVOT VTI ? 25.44 ?[ 20.00 - 30.00 ] cm ? MV E Peak Noe ?0.78 ? [ 0.60 - 1.30 ] m/s ? MV A Peak Noe ?0.64 ? [ 1.00 - 1.20 ] m/s ? MV Mean PG ? 1 ?[ <= 5 ] mmHg ? MV PHT ? 111 ?[ 20 - 100 ] msec ? MVA ?2.00 ? MV Decel Time ?236 ?[ 104 - 258 ] msec ? PV Peak Noe ?0.95 ? [ 0.40 - 0.80 ] m/s ? TR Peak Noe ?0.86 ? [ 1.00 - 2.80 ] m/s ? TR Peak PG ? 3 ?mmHg ? RVSP ? 13.00 ?[ 10.00 - 36.00 ] mmHg ? E' ? 0.09 ? E/E' ? 9.01 ? PA Pressure ?3.00 ? [ 10.00 - 36.00 ] mmHg ? Findings: Atrial Septum: Normal atrial septum. Left Ventricle: Normal left ventricular systolic function with no focal wall motion abnormalities. Normal left ventricular size. Normal left ventricular diastolic function. Ejection fraction is visually estimated at 65 %. Left Atrium: The left atrium is normal in size. Normal left atrial pressure based on pulmonary vein inflow. Right Ventricle: Normal right ventricular size. Normal right ventricular systolic function. Right Atrium: The right atrium is normal in size. Right Atrial Pressure = 5 mmHg. Aortic Valve: Normal structure of the aortic valve. No evidence of hemodynamically significant aortic stenosis by Doppler. No aortic regurgitation. Mitral Valve: Normal structure of the mitral valve. Pulmonic Valve: Pulmonic valve not well visualized. No evidence of pulmonic regurgitation. Tricuspid Valve: Normal structure of the tricuspid valve. Right Ventricular Systolic Pressure could not be estimated due to inadequate visualization of TR jet. Pericardium: Normal pericardium with no significant pericardial effusion. Aorta: Normal aortic root. Aortic root not well visualized. IVC: Normal size and normal respiratory collapse consistent with normal right atrial pressure (<5 mmHg). Conclusions: Normal left ventricular systolic function with [...] due to inadequate visualization of TR jet. Electronically Signed By: Dr Gordon Leach 2021-03-24 13:25:06 CDT Procedure Note Gordon Leach, DO - 03/24/[address] [place] [address] Echocardiogram Report Patient Name: JAVIER SANCHEZ RPatient ID: [id number] : [id number] Date: 03/24/2021 07:45:59 Gender: MAccession #: [id number] Tech: NPLocation: Echo Lab 3 Ref.Provider: THELMA ALLISONHeight(Cm): 170 BSA: 2.34Weight(Kg): 115.7 Quality: AdequateOrder Provider: THELMA ALLISON Procedures: Echocardiographic Report: Transthoracic echocardiogram with complete 2D, M-Mode, and color Dopplerexamination. Indications: anesthesia of skin, SOB. Measurements: 2D/M Mode Doppler Measurement Value Normal Range Measurement ValueNormal Range EF Teich MM 64.0 [ 55.0 - 70.0 ] percent AV Mean PG 3[ 2 - 4 ] mmHg LVIDd MM 5.60 [ 4.20 - 5.90 ] cm AV Peak Noe 1.09[ 1.00 - 1.70 ] m/s LVIDs MM 3.60 [ 2.30 - 3.90 ] cm AV VTI 27.67cm LVPWd MM 1.90 [ 0.60 - 1.00 ] cm LVOT Peak Noe 1.00[ 0.70 - 1.10 ] m/s IVSd MM 1.00 [ 0.60 - 0.90 ] cm LVOT VTI 25.44[ 20.00 - 30.00 ] cm MV E Peak Noe 0.78[ 0.60 - 1.30 ] m/s MV A Peak Noe 0.64[ 1.00 - 1.20 ] m/s MV Mean PG 1[ <= 5 ] mmHg MV PHT 111[ 20 - 100 ] msec MVA 2.00 MV Decel Time 236[ 104 - 258 ] msec PV Peak Noe 0.95[ 0.40 - 0.80 ] m/s TR Peak Noe 0.86[ 1.00 - 2.80 ] m/s TR Peak PG 3mmHg RVSP 13.00[ 10.00 - 36.00 ] mmHg E' 0.09 E/E' 9.01 PA Pressure 3.00[ 10.00 - 36.00 ] mmHg Findings: Atrial Septum: Normal atrial septum. Left Ventricle: Normal left ventricular systolic function with no focal wall motionabnormalities. Normal left ventricular size. Normal left ventricular diastolic function.Ejection fraction is visually estimated at 65 %. Left Atrium: The left atrium is normal in size. Normal left atrial pressure based onpulmonary vein inflow. Right Ventricle: Normal right ventricular size. Normal right ventricular systolicfunction. Right Atrium: The right atrium is normal in size. Right Atrial Pressure = 5 mmHg. Aortic Valve: Normal structure of the aortic valve. No evidence of hemodynamicallysignificant aortic stenosis by Doppler. No aortic regurgitation. Mitral Valve: Normal structure of the mitral valve. Pulmonic Valve: Pulmonic valve not well visualized. No evidence of pulmonicregurgitation. Tricuspid Valve: Normal structure of the tricuspid valve. Right Ventricular SystolicPressure could not be estimated due to inadequate visualization of TR jet. Pericardium: Normal pericardium with no significant pericardial effusion. Aorta: Normal aortic root. Aortic root not well visualized. IVC: Normal size and normal respiratory collapse consistent with normal rightatrial pressure (<5 mmHg). Conclusions: Normal left ventricular systolic function with no focal wall motionabnormalities. Normal left ventricular size. Normal left ventricular diastolic function.Ejection fraction is visually estimated at 65 %. The left atrium is normal in size. Normal left atrial pressure. The right atrium is normal in size. Right Atrial Pressure = 5 mmHg. Normal structure of the tricuspid valve. Right Ventricular SystolicPressure could not be estimated due to inadequate visualization of TR jet. Electronically Signed By: Dr Gordon Leach 2021-03-24 13:25:06 CDT us Thelma Allison MD CV ECHO PROCEDURES Final Resu lt documented in this encounter Visit Diagnoses Diagnosis SOB (shortness of breath) Shortness of breath documented in this encounter Care Teams Solid Die Cutter Relationship Specialty Start Date End Date Thelma Allison MD [address] [place] [address] PCP - General 02/22/17 09/19/22 Pascale Wolff MD [address] [place] [address] Consulting Physician Sleep Medicine 12/06/19 documented as of this encounter
--- OUTSIDE RECORDS SUMMARY | 2024-11-24 10:09 | XMS_ITS | Encounter Summary ---
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 There is a more recent note with a pt update. BIT PREPARATOR * Telephone Encounter - Lanny Lee RN - 10/11/2020 9:44 AM CST Left message for pt to check on him. ECS spoke with him last night. BIT PREPARATOR * Telephone Encounter - Az Allison MD - 10/10/2020 5:47 PM CST I discussed symptoms with the patient. He denies feeling short of breath. His chest just feels a little tight. He is using his inhalers. He is not coughing up much phlegm. I sent in a Z-Avinash as a trial for acute exacerbation of CB. If not improving, he may need a steroid Dosepak. BIT PREPARATOR * Telephone Encounter - Sundeep Blackman RN - 10/10/2020 1:35 PM CST Spoke to pt Seen in office 10-03-20 COVID pos 10-04-20 C/o cont chest tightness et coughing up phlegm Denies fever, SOB States ear pain, fatigue et joint pain improved. Taking OTC Mucinex. Req antibiotic BIT PREPARATOR * Telephone Encounter - Cindy Orta - 10/10/2020 1:22 PM CST Patient seen Dr Bernardo last week and he said if symptoms didn't improve for him to call back. He is still having chest tightness, he is still coughing up some phelgm. It doesn't seem like it is gettingany better. Cbn: [phone] BIT PREPARATOR documented in this encounter Plan of Treatment Not on file documented as of this encounter Visit Diagnoses Diagnosis Chronic obstructive pulmonary disease, unspecified COPD type (HCC)- Primary documented in this encounter Additional Health Concerns Infection Onset Date Last Indicated Resolved Time COVID19 10/04/2020 10/04/2020 10/18/2020 3:07 AM EXHIBIT PREPARATOR documented as of this encounter Care Teams Auto Clocks Repairer Relationship Specialty Start Date End Date Az Allison MD [address] [place] [id number] PCP - General 02/22/17 09/19/22 Pascale Wolff MD [address] [place] [id number] Consulting Physician Sleep Medicine 12/06/19 documented as of this encounter
--- OUTSIDE RECORDS SUMMARY | 2024-11-24 10:09 | XMS_ITS | Encounter Summary ---
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 Gender Identity Not on file Sexual Orientation Not on file documented as of this encounter Miscellaneous Notes * Telephone Encounter - Chuyita Hyman RN - 10/18/2020 10:57 AM DIGITAL PRODUCTION OPERATOR Called and checked on the pt he is doing well Pt will call us back with any questions or problems TAL PRODUCTION OPERATOR * Telephone Encounter - Chuyita Hyman RN - 10/17/2020 12:33 PM DIGITAL PRODUCTION OPERATOR Left a message for the pt to call us back TAL PRODUCTION OPERATOR * Telephone Encounter - Chuyita Hyman RN - 10/14/2020 3:36 PM CST Left a message for the pt to call us back TAL PRODUCTION OPERATOR * Telephone Encounter - Az Allison MD - 10/13/2020 4:24 PM CST Noted, thank you. I reviewed the ER record in everything looks good. He was given prednisone. Please check on him in a couple of days. TAL PRODUCTION OPERATOR * Telephone Encounter - Sundeep Blackman RN - 10/13/2020 9:44 AM CST Spoke to pt COVID pos 10-04-20 C/o Worsening SOB, weakness, productive cough w/brownish phlegm, pain in R side chest, feels like pneumonia coming on. Denies temp Taking Zpak w/no other OTC meds Spoke w/Dr Allison who recommends pt go to ER for O2 eval, poss CXR et IV meds FYI ECS Pt agreeable to go to [facility] ER Called ER et informed of above pt report TAL PRODUCTION OPERATOR * Telephone Encounter - Kenia Hancock - 10/13/2020 8:42 AM CST Cbn#[phone] patient Pt has symptoms of Weakness Rt lung discomfort Shortness of breath Cough Productive cough No fever Pt did test positive to covid-19 on 10/04/20 and he is still having symptoms. Pt wants to know if would order a xray. Please advise TAL PRODUCTION OPERATOR documented in this encounter Plan of Treatment Not on file documented as of this encounter Visit Diagnoses Not on filedocumented in this encounter Additional Health Concerns Infection Onset Date Last Indicated Resolved Time COVID19 10/04/2020 10/04/2020 10/18/2020 3:07 AM DIGITAL PRODUCTION OPERATOR COVID: Recovered Comment:Added based on recent COVID infection. 10/18/2020 10/18/2020 02/15/2021 3:05 AM C DT documented as of this encounter Care Teams Cosmetics Supervisor Relationship Specialty Start Date End Date Az Allison MD [address] [place] [address] PCP - General 02/22/17 09/19/22 Pascale Wolff MD [address] [place] [address] Consulting Physician Sleep Medicine 12/06/19 documented as of this encounter
--- OUTSIDE RECORDS SUMMARY | 2024-11-24 10:09 | XMS_ITS | Encounter Summary ---
Author Organization [facility] Address [address] [facility] [address] [place] [address] Care Team Providers Care Drink Waiter Name Role Phone Az Allison MD Primary Care Provider [phone] Pascale Wolff MD Unavailable Encounter Details Date Type Department Care Team (Late st Contact Info) Description 10/06/2020 Documentation [facility] [address] [facility] [place] [address] [place] [id number] Sarah Dubois NP [address] [place] [address] Social History Tobacco Use Types Packs/Day Years [...] on file 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 ORATION ECOLOGIST documented in this encounter Plan of Treatment Not on file documented as of this encounter Visit Diagnoses Not on filedocumented in this encounter Additional Health Concerns Infection Onset Date Last Indicated Resolved Time COVID: Suspected 10/04/2020 10/04/2020 10/06/2020 1:34 AM RESTORATION ECOLOGIST COVID19 10/04/2020 10/04/2020 10/18/2020 3:07 AM RESTORATION ECOLOGIST documented as of this encounter Care Teams Drink Waiter Relationship Specialty Start Date End Date Az Allison MD [address] [place] [address] PCP - General 02/22/17 09/19/22 Pascale Wolff MD [address] [place] [id number] Consulting Physician Sleep Medicine 12/06/19 documented as of this encounter
--- OUTSIDE RECORDS SUMMARY | 2024-11-24 10:09 | XMS_ITS | Encounter Summary ---
Author Organization [facility] Address [address] [facility] [address] [place] [address] Care Team Providers Care Poultry Packer Name Role Phone Az Allison MD Primary Care Provider [phone] Pascale Wolff MD Unavailable Rudi Patel MD Unavailable [phone] Encounter Details Date Type Department Care Team (Late st Contact Info) Description 07/11/2021 Telephone [facility] [address] [place] [address] Az Allison MD [address] [address] Social History Tobacco Use Types Packs/Day Years [...] on file 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 * Telephone Encounter - Kenia Hancock - 07/20/2021 8:27 AM CDT Pt did not get it done because he was unable to fit in the machine. We are working on getting him in somewhere else. * Telephone Encounter - Az Allison MD - 07/19/2021 4:47 PM CDT I have not seen the report of his C-spine MRI yet. * Telephone Encounter - Az Allison MD - 07/11/2021 12:06 PM CDT Noted, thanks. * Telephone Encounter - Tegan Keita - 07/11/2021 11:21 AM CDT Patient is scheduled for his MRI cervical spine w/o contrast on 07/18 at [facility]. Update to documented in this encounter Plan of Treatment Not on file documented as of this encounter Visit Diagnoses Not on filedocumented in this encounter Care Teams Poultry Packer Relationship Specialty Start Date End Date Az Allison MD [address] [address] PCP - General 02/22/17 09/19/22 Pascale Wolff MD [address] [place] [address] Consulting Physician Sleep Medicine 12/06/19 Rudi Patel MD [address] [place] [address] Resident Neurosurgery 06/08/21 documented as of this encounter
--- OUTSIDE RECORDS SUMMARY | 2024-11-24 10:09 | XMS_ITS | Encounter Summary ---
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 Gender Identity Not on file Sexual Orientation Not on file documented as of this encounter Ordered Prescriptions Prescription Sig Dispense Quantity Refills Last Filled Start Date End Date fluticasone propionate (FLONASE) 50 mcg/actuation nasal sprayIndications:A llergic Rhinitis Administer 1 spray into each nostril daily 1 Inhaler 1 06/30/2021 doxycycline (VIBRAMYCIN) 100 mg capsuleIndications :Acute pharyngitis due to other specified organisms Take 1 tablet/capsule (100 mg total) by mouth every 12 (twelve) hours for 10 days 20 tablet/capsul e 06/30/2021 documented in this encounter Miscellaneous Notes * Telephone Encounter - Chuyita Hyman RN - 06/30/2021 4:56 PM CDT Left a message for the pt * Telephone Encounter - Az Allison MD - 06/30/2021 4:48 PM CDT I sent a refill for the doxycycline. He can take another course to see if it helps knock this out. He may also want to use a nasal steroid for a couple of weeks such as Flonase. Rx sent. He can continue using the Astelin as well. If not getting back to his baseline by the middle to end of next week, come in for re-evaluation. * Telephone Encounter - Kenia Hancock - 06/30/2021 10:04 AM CDT Please see previous message from 06/19/21. Pt still has symptoms of Sore throat A little bit of a runny/stuffy nose Pt states he finished the Doxycycline. Pt states he did feel better while taking the Doxycycline . Pt would like to advise. Cbn#[phone] patient documented in this encounter Plan of Treatment Not on file documented as of this encounter Visit Diagnoses Diagnosis Nasopharyngitis- Primary Acute nasopharyngitis (common cold) Acute pharyngitis due to other specified organisms documented in this encounter Discontinued Medications Medication Sig Discontinue Reason Start Date End Da te doxycycline (VIBRAMYCIN) 100 mg capsuleIndications:Acute pharyngitis due to other specified organisms Take 1 tablet/capsule (100 mg total) by mouth every 12 (twelve) hours for 10 days Reorder 06/19/2021 06/30/2021 documented as of this encounter Care Teams Property Technician Relationship Specialty Start Date End Date Az Allison MD [address] [place] [id number] PCP - General 02/22/17 09/19/22 Pascale Wolff MD [address] [place] [address] Consulting Physician Sleep Medicine 12/06/19 Rudi Patel MD [address] [place] [id number] Resident Neurosurgery 06/08/21 documented as of this encounter
--- OUTSIDE RECORDS SUMMARY | 2024-11-24 10:09 | XMS_ITS | Encounter Summary ---
Author Organization [facility] Address [address] [facility] [address] [place] [address] Care Team Providers Care Track Coach Name Role Phone Az Allison MD Primary Care Provider [phone] Pascale Wolff MD Unavailable Rudi Patel MD Unavailable [phone] Encounter Details Date Type Department Care Team (Late st Contact Info) Description 07/23/2021 Telephone [facility] [address] [place] [address] Az Allison MD [address] [address] Social History Tobacco Use Types Packs/Day Years [...] on file 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 * Telephone Encounter - Cindy Orta - 08/15/2021 10:47 AM CDT Received ov note on patient and put on your desk for review. * Telephone Encounter - Cindy Orta - 08/15/2021 8:35 AM CDT Spoke with Dr Patel office and they will fax over May visit and June visit. They do not haveSeptember visit dictated. * Telephone Encounter - Az Allison MD - 08/09/2021 5:05 PM CDT Spoke to patient. He will be seeing his spine surgeon, Dr. Kenan Patel, on Saturday. Please get a copy of the office note when it is available. * Telephone Encounter - Lana Roberts - 08/09/2021 8:40 AM CDT Results placed in your office, copy sent to scanning. * Telephone Encounter - Az Allison MD - 08/08/2021 3:06 PM CDT Patient was supposed to get MRI of C-spine today. Please get the results. * Telephone Encounter - Az Allison MD - 07/24/2021 5:06 PM CDT Noted, thank you. * Telephone Encounter - Zoila Self - 07/24/2021 3:18 PM CDT 07-18-21 Pt was scheduled to have MRI Cervical Spine wo contrast @ [facility] on . 07-18-21. Pt went to that appt.. He couldn't fit his shoulders/arms in the machine. It wasn't wide enough. I did find a machine that pt could fit through @ [facility]. Pt aware. Pt scheduled his MRI Cervical Spine wo contrast @ [facility] for 08-08-21 @ 11:30am.. * Telephone Encounter - Az Allison MD - 07/23/2021 4:23 PM CDT Any progress on getting him the C-spine MRI? If not I might just order a CT and have him follow up after that. documented in this encounter Plan of Treatment Not on file documented as of this encounter Visit Diagnoses Not on filedocumented in this encounter Care Teams Track Coach Relationship Specialty Start Date End Date Az Allison MD [address] [place] [address] PCP - General 02/22/17 09/19/22 Pascale Wolff MD [address] [place] [address] Consulting Physician Sleep Medicine 12/06/19 Rudi Patel MD [address] [place] [address] Resident Neurosurgery 06/08/21 documented as of this encounter
--- OUTSIDE RECORDS SUMMARY | 2024-11-24 10:09 | XMS_ITS | Encounter Summary ---
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 Pt referred by Dr. Hai Pradhan [facility] Pt referred for dyspnea with mild to moderate exertion Referral scanned into [employer] insurance documented in this encounter Plan of Treatment Not on file documented as of this encounter Visit Diagnoses Not on filedocumented in this encounter Care Teams Insulator Tester Relationship Specialty Start Date End Date Az Allison MD [address] [place] [id number] PCP - General 02/22/17 09/19/22 Pascale Wolff MD [address] [place] [id number] Consulting Physician Sleep Medicine 12/06/19 Rudi Patel MD [address] [place] [id number] Resident Neurosurgery 06/08/21 documented as of this encounter
--- OUTSIDE RECORDS SUMMARY | 2024-11-24 10:09 | XMS_ITS | Encounter Summary ---
Author Organization [facility] Address [address] [place] [address] Care Team Providers Care Mangle Press Catcher Name Role Phone Az Allison MD Primary Care Provider Pascale Wolff MD Unavailable Reason for Referral * MRI/CAT/PET Scan (Routine) - Closed Specialty Diagnoses / Procedures Referred By Contac t Referred To Contact Radiology Diagnoses Low back pain, unspecified back pain laterality, unspecified chronicity, unspecified whether sciatica present Procedures CT Lumbar Spine WO Contrast Adalid Ramirez NP [address] [place] [address] Phone: tel: fax: [address] [phone] Referral ID Status Reason Start Date Expiration Date Visits Re quested Visits Authorized [id number] Closed 03/01/2021 03/31/2022 1 1 Reason for Visit * MRI/CAT/PET Scan (Routine) - Closed Specialty Diagnoses / Procedures Referred By Contac t Referred To Contact Radiology Diagnoses Low back pain, unspecified back pain laterality, unspecified chronicity, unspecified whether sciatica present Procedures CT Lumbar Spine WO Contrast Adalid Ramirez NP [address] [place] [address] Phone: tel: fax: [address] [phone] Referral ID Status Reason Start Date Expiration Date Visits Re quested Visits Authorized [id number] Closed 03/01/2021 03/31/2022 1 1 Encounter Details Date Type Department Care Team (Latest Contact Info) Description 03/14/2021 2:09 PM CDT - 03/14/2021 11:59 PM CDT Hospital Encounter [facility] [address] [place] [address] Omar Reina MD [address] [place] [address] Adalid Ramirez NP [address] [place] [address] Low back pain, unspecified back pain laterality, unspecified chronicity, unspecified whether sciatica present Discharge Disposition: Discharge to home or self [...] on file 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 Gender Identity Not on file Sexual Orientation [...] needed (Before sex) 60 tablet 3 07/22/2020 cyclobenzaprine (FLEXERIL) 10 mg tablet Take 1 tablet by mouth nightly 01/11/[address] (CYMBALTA) 60 mg capsuleIndications :Chronic [...] Date/Time Associated Diagnosis Comments CT LUMBAR SPINE WO CONTRAST Schedule Routine, Read Routine (OP Routine) 03/14/2021 3:00 PM CDT Low back pain, unspecified back pain laterality, unspecified chronicity, unspecified whether sciatica present documented in this encounter Results * CT Lumbar Spine WO Contrast (03/14/2021 3:00 PM CDT) Anatomical Region Laterality Modality Spine N/A Computed Tomogra phy 03/14/2021 2:42 PM CDT Narrative 03/15/2021 1:[address] [facility] ?Imaging Result Name: JAVIER SANCHEZ ? Ordering Phys: ADALID RAMIREZ Age: 50 ?Date of : 1970 ? Accession Number: [id number] Date of Service: 03/14/2021 ??Gender: M EXAM DESCRIPTION: ?? CT LUMBAR SPINE WO CONTRAST REASON FOR STUDY: ?? PT stated he was pulling a hose and felt something in his back that didn't feel right a few days ago. He has a Hx of lumbar fusion surgery x10 years ago and laminectomy x15 years ago. No known injury. PT stated he has a lot of pain and stiffness in his lower back and has been doing physical therapy for his back, but it only seems to be helping a little as the PT stated.Duration: a few days TECHNIQUE: ??Axial images acquired through the lumbar spine without intravenous contrast. ??Reconstructed coronal and sagittal MPR images reviewed. ??All images stored on PACS. Automated exposure control was used as a dose optimization technique for this examination. COMPARISON: ?? None available FINDINGS: ??SEGMENTATION: ??The most superior aspect of the L1 vertebral body is not included. ??There appears to be a rib-bearing vertebral body just above it, and there appear to be 5 mbp-kdc-ifqhbla lumbar type vertebral bodies. ALIGNMENT: ??There is customary lumbar lordosis. ??Ankylosis of the facet joints at L5-S1 is noted. ??Sclerosis of those facet joints is noted without spondylolysis moderate arthritic changes of the bilateral facet joints are present. ??Facet joints are aligned. ??There is customary lumbar lordosis. ??No significant spondylolisthesis is identified. VERTEBRAE: ??Vertebral body height appears well maintained. ??Mild-moderate marginal osteophyte formation is present. DISC HEIGHT: ??Intervertebral disc height appears relatively well maintained. HARDWARE: ??Anterior fixation device and interbody fusion changes are noted at L5-S1. ??There appears to be complete bridging fusion/incorporation. ??Screws within the vertebral bodies are well seated without lucency or loosening. Mild osteoarthritic changes of the sacroiliac joints are noted, greater on the left. ??Laminectomy changes at L5 are noted. INDIVIDUAL DISC LEVELS: ??Mild bilateral osseous neuroforaminal stenosis at L4-L5 is noted. ??Pedicles appear somewhat short. VISUALIZED RIBS: ??No fractures. SOFT TISSUES: ??No significant or acute finding in adjacent soft tissues. OTHER: ??No other significant finding. IMPRESSION: 1. ??Postoperative changes of the lumbar spine, without evidence of complication. 2. ??Overall mild osteoarthritic changes of the lumbar spine. THIS IS AN ELECTRONICALLY VERIFIED FINAL REPORT 03/15/2021 1:48 PM - Electronically signed by Blu Esparza M.D. AT: AT D: ??03/15/2021 1:48 PM T: ??03/15/2021 1:48 PM Report ID: [id number] Reading Location: ??[id number] Procedure Note Blu Esparza MD - 03/15/[address] [facility] Imaging Result Name: JAVIER SANCHEZ Ordering Phys: ADALID RAMIREZ Age: 50 Date of : 1970 Accession Number: [id number] Date of Service: 03/14/2021 Gender: M EXAM DESCRIPTION: CT LUMBAR SPINE WO CONTRAST REASON FOR STUDY: PT stated he was pulling a hose and felt something inhis back that didn't feel right a few days ago. He has a Hx of lumbarfusion surgery x10 years ago and laminectomy x15 years ago. No known injury. PT stated he has a lot of pain and stiffness in his lower back and has beendoing physical therapy for his back, but it only seems to be helping a little as the PT stated.Duration: a few days TECHNIQUE: Axial images acquired through the lumbar spine withoutintravenous contrast. Reconstructed coronal and sagittal MPR images reviewed. Allimages stored on PACS. Automated exposure control was used as a dose optimization technique forthis examination. COMPARISON: None available FINDINGS: SEGMENTATION: The most superior aspect of the L1 vertebralbody is not included. There appears to be a rib-bearing vertebral body just aboveit, and there appear to be 5 djw-qqd-yienjhb lumbar type vertebral bodies. ALIGNMENT: There is customary lumbar lordosis. Ankylosis of the facetjoints at L5-S1 is noted. Sclerosis of those facet joints is noted without spondylolysis moderate arthritic changes of the bilateral facet jointsare present. Facet joints are aligned. There is customary lumbar lordosis.No significant spondylolisthesis is identified. VERTEBRAE: Vertebral body height appears well maintained.Mild-moderate marginal osteophyte formation is present. DISC HEIGHT: Intervertebral disc height appears relatively wellmaintained. HARDWARE: Anterior fixation device and interbody fusion changes are notedat L5-S1. There appears to be complete bridging fusion/incorporation.Screws within the vertebral bodies are well seated without lucency orloosening. Mild osteoarthritic changes of the sacroiliac joints are noted, greater onthe left. Laminectomy changes at L5 are noted. INDIVIDUAL DISC LEVELS: Mild bilateral osseous neuroforaminal stenosisat L4-L5 is noted. Pedicles appear somewhat short. VISUALIZED RIBS: No fractures. SOFT TISSUES: No significant or acute finding in adjacent soft tissues. OTHER: No other significant finding. IMPRESSION: 1. Postoperative changes of the lumbar spine, without evidence of complication. 2. Overall mild osteoarthritic changes of the lumbar spine. THIS IS AN ELECTRONICALLY VERIFIED FINAL REPORT 03/15/2021 1:48 PM - Electronically signed by Blu Esparza M.D. AT: AT Report ID: [id number] Reading Location: [place] [address] Adalid Ramirez JIG GRINDER SET UP OPERATOR IMG CT PROCEDURES Final Result documented in this encounter Visit Diagnoses Diagnosis Low back pain, unspecified back pain laterality, unspecified chronicity, unspecified whether sciatica present documented in this encounter Care Teams Mangle Press Catcher Relationship Specialty Start Date End Date Az Allison MD [address] [place] [address] PCP - General 02/22/17 09/19/22 Pascale Wolff MD [address] [place] [address] Consulting Physician Sleep Medicine 12/06/19 documented as of this encounter
--- OUTSIDE RECORDS SUMMARY | 2024-11-24 10:09 | XMS_ITS | Encounter Summary ---
Author Organization [facility] Address [address] [place] [address] Care Team Providers Care Correspondence Analyst Name Role Phone Az Allison MD Primary Care Provider Pascale Wolff MD Unavailable Reason for Visit * Reason Onset Date Comments Covid-19 Home Monitoring 10/06/2020 Enrollm ent call day 1 Encounter Details Date Type Department Care Team (Late st Contact Info) Description 10/06/2020 Telephone [facility] Accountable Care Organization [address] [place] [address] Micki Phillips MA [address] [place] [address] Covid-19 Home Monitoring (Enrollment call day 1) Social History Tobacco Use Types Packs/Day Years [...] on file 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 The patientwas contacted via phone for enrollment in the program, but could not be reached to accept or decline Unable to reach patient. Patient will receive follow up call tomorrow Enrollment call day 2 due 10/07 ORMANCE TEST CONSULTANT documented in this encounter Plan of Treatment Not on file documented as of this encounter Visit Diagnoses Not on filedocumented in this encounter Additional Health Concerns Infection Onset Date Last Indicated Resolved Time COVID: Suspected 10/04/2020 10/04/2020 10/06/2020 1:34 AM PERFORMANCE TEST CONSULTANT COVID19 10/04/2020 10/04/2020 10/18/2020 3:07 AM PERFORMANCE TEST CONSULTANT documented as of this encounter Care Teams Correspondence Analyst Relationship Specialty Start Date End Date Az Allison MD [address] [place] [address] PCP - General 02/22/17 09/19/22 Pascale Wolff MD [address] [place] [address] Consulting Physician Sleep Medicine 12/06/19 documented as of this encounter
--- OUTSIDE RECORDS SUMMARY | 2024-11-24 10:09 | XMS_ITS | Encounter Summary ---
Author Organization [facility] Address [address] [facility] [address] [place] [address] Care Team Providers Care Track Repairer Name Role Phone Az Allison MD Primary Care Provider [phone] Pascale Wolff MD Unavailable Rudi Patel MD Unavailable [phone] Reason for Visit * Reason Comments Neck Pain Encounter Details Date Type Department Care Team (Late st Contact Info) Description 07/10/2021 1:40 PM CDT Office Visit [facility] [address] [place] [address] Az Allison MD [address] [address] Neck pain (Primary Dx) Social History Tobacco Use Types [...] on file 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 Gender Identity Not on file Sexual Orientation Not on file documented as of this encounter Last Filed Vital Signs Vital Sign Reading Time Taken Comments Blood Pressure 124/72 07/10/2021 1:36 PM CDT Pulse 66 07/10/2021 1:36 PM CDT Temperature 36.8 ??C (98.2 ??F) 07/10/2021 1:36 PM CD T Respiratory Rate 16 07/10/2021 1:36 PM CDT Oxygen Saturation 99% 07/10/2021 1:36 PM CDT Inhaled Oxygen Concentration - - Weight 116.1 kg (256 lb) 07/10/2021 1:36 PM CDT Height 170.2 cm (5' 7 ) 07/10/2021 1:36 PM CDT Body Mass Index 40.1 07/10/2021 1:36 PM CDT documented in this encounter Patient Instructions * Patient Instructions* Az Allison MD - 07/10/2021 1:40 PM CDT motel front desk clerk will get a copy of your MRI lumbar spine from [facility]. motel front desk clerk will order MRI of C-spine without contrast for neck pain, hand weakness and numbness. documented in this encounter Progress Notes * Az Allison MD - 07/10/2021 1:40 PM CDT Problem List Items Addressed This Visit Musculoskeletal and Injuries Neck pain - Primary For the past four weeks, he has [...] of this month with Dr. Patel at [facility]. MRI of the lumbar spine was done at [facility], and we will get those images and report. However therehas been no imaging of the C-spine. Exam shows normal strength and reflexes except for mild bilateral hand storage battery inspector weakness. Sensory exam in the arms and C-spine is normal. We will get a C-spine MRI. Depending on findings, consider additional workup, especially for the swallowing symptoms. Consider referral to Neurology to evaluate for n euromuscular disorders. Relevant Orders MRI Cervical Spine WO Contrast Routine/Preventive Care: He had one dose of the SARS-CoV-2 vaccine charted. HPI: Patient presents for evaluation and management of neck pain and hand weakness and tingling, see above for details. We plan to see him back after imaging of the C-spine. Review of Systems Constitutional: Negative for fever. HENT: Positive for trouble swallowing ( sometimes feels like he has trouble swallowing). Gastrointestinal: Denies bowel incontinence or retention. Endocrine: Morbidly obese. Genitourinary: Denies bladder incontinence or retention. Musculoskeletal: Positive for back pain ( seeing Dr. Patel for lumbar back problems, surgery scheduled for the end of this month) and neck pain ( developed neck pain about four weeks ago, a dull ache and a weak sensation in his neck muscles). Neurological: Positive for weakness ( hands feel weak, exam suggests mild bilateral hand storage battery inspector weakness) and numbness (Arms and hands feel numb bilaterally, exam is normal for light touch.). Current medication list reviewed and reconciled. See After Visit Summary for details. Allergies Allergen Reactions ??? Penicillins Rash Red itchy rash a day or two after starting it. ??? Hydrocodone Stomach upset Past Medical, Family and Social History: Pertinent details reviewed. Vitals: 07/10/21 1336 BP: 124/72 Pulse: 66 Resp: 16 Temp: 36.8 ??C (98.2 ??F) SpO2: 99% Weight: 116.1 kg (256 lb) Height: 170.2 cm (5' 7 ) Physical Exam Constitutional: General: He is not in acute distress. Appearance: He is obese. Neck: Thyroid: No thyroid mass or thyromegaly. Pulmonary: Effort: Pulmonary effort is normal. Breath sounds: No wheezing or rales. Musculoskeletal: Cervical back: No tenderness. Comments: Straight leg raise negative bilaterally. Lymphadenopathy: Cervical: No cervical adenopathy. Neurological: Mental Status: He is alert. Sensory: No sensory deficit ( no sensory deficit to light touch in arms and C-spine). Motor: Weakness ( mild bilateral hand storage battery inspector weakness, otherwise normal upper and lower extremity strength proximally and distally) present. Deep Tendon Reflexes: Reflexes normal (Reflexes in upper and lower extremities 2+ and symmetric except that right ankle reflex 1+). Comments: Neck muscle strength judged to be normal. Psychiatric: Mood and Affect: Mood normal. Behavior: Behavior normal. Thought Content: Thought content normal. Labs/Imaging/Other: As ordered in epic. Patient Active Problem List Diagnosis Code ??? Morbid obesity (CMS/HCC) (HCC) E66.01 ??? Mild intermittent asthma without complication J45.20 ??? Hyperglycemia R73.9 ??? Essential hypertension I10 ??? Persistent mood disorder (CMS/HCC) F34.9 ??? Low back pain M54.5 ??? Steatosis of liver K76.0 ??? Chronic obstructive pulmonary disease (CMS/HCC) (HCC) J44.9 ??? Elevated serum creatinine R79.89 ??? Polycythemia D75.1 ??? Chronic coronary artery disease I25.10 ??? LV dysfunction I51.9 ??? Other fatigue R53.83 ??? Steatohepatitis, non-alcoholic K75.81 ??? Verruca vulgaris B07.9 ??? Severe obstructive sleep apnea G47.33 ??? Male erectile disorder N52.9 ??? Mixed hyperlipidemia E78.2 ??? Rectal bleeding K62.5 ??? Mild carpal tunnel syndrome of right wrist G56.01 ??? Acute pharyngitis due to other specified organisms J02.8 ??? Nasopharyngitis J00 ??? Neck pain M54.2 documented in this encounter Miscellaneous Notes * Assessment & Plan Note - Az Allison MD - 07/10/2021 2:05 PM CDT Associated Problem(s): Neck pain For the past four weeks, he has [...] of this month with Dr. Patel at [facility]. MRI of the lumbar spine was done at [facility], and we will get those images and report. However therehas been no imaging of the C-spine. Exam shows normal strength and reflexes except for mild bilateral hand storage battery inspector weakness. Sensory exam in the arms and C-spine is normal. We will get a C-spine MRI. Depending on findings, consider additional workup, especially for the swallowing symptoms. Consider referral to Neurology to evaluate for n euromuscular disorders. documented in this encounter Plan of Treatment Not on file documented as of this encounter Visit Diagnoses Diagnosis Neck pain- Primary Cervicalgia documented in this encounter Care Teams Track Repairer Relationship Specialty Start Date End Date Az Allison MD [address] [place] [address] PCP - General 02/22/17 09/19/22 Pascale Wolff MD [address] [place] [address] Consulting Physician Sleep Medicine 12/06/19 Rudi Patel MD [address] [place] [address] Resident Neurosurgery 06/08/21 documented as of this encounter
--- OUTSIDE RECORDS SUMMARY | 2024-11-24 10:09 | XMS_ITS | Encounter Summary ---
Author Organization [facility] Address [address] [place] [address] [address] [place] [address] Care Team Providers Care Special Education Resource Room Teacher Name Role Phone Az Allison MD Primary Care Provider [phone] Pascale Wolff MD Unavailable Reason for Visit * Reason Onset Date Comments Covid-19 Home Monitoring 10/08/2020 enrollm ent declined Encounter Details Date Type Department Care Team (Late st Contact Info) Description 10/08/2020 Telephone [facility] Post Acute Care [address] 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 The patient was contacted via phone for enrollment in the program. The following criteria were reviewed with the patient: - Active MyChart (or willing to activate today): No Please send patient activation link and confirm that they have received. Patients with active MyChart but who are uncertain how to access should be directed to the [employer] support center at: [phone] or [phone]. - Tablet or SmartPhone with [employer] Betty or ability to download [employer] Betty today: No - Agree to complete a daily questionnaire about their symptoms (this will be sent to their phone ator around 9am daily): No The patient was informed that members of the healthcare team will contact them depending on the symptoms that they report. This call could come from a variety of phone numbers depending on which member of the healthcare team is contacting the patient, and the patient should be prepared to answer calls from a variety of phone numbers. If the patient reports concerning symptoms but is unable to be contacted, the police department maybe contacted to perform a security check. After review, the patient declined to participate. The ???COVID19 Home Monitoring?? order was not placed to enroll the patient. ER SEWING MACHINE OPERATOR documented in this encounter Plan of Treatment Not on file documented as of this encounter Visit Diagnoses Not on filedocumented in this encounter Additional Health Concerns Infection Onset Date Last Indicated Resolved Time COVID19 10/04/2020 10/04/2020 10/18/2020 3:07 AM ZIPPER SEWING MACHINE OPERATOR documented as of this encounter Care Teams Special Education Resource Room Teacher Relationship Specialty Start Date End Date Az Allison MD [address] [place] [address] PCP - General 02/22/17 09/19/22 Pascale Wolff MD [address] [place] [address] Consulting Physician Sleep Medicine 12/06/19 documented as of this encounter
--- OUTSIDE RECORDS SUMMARY | 2024-11-24 10:09 | XMS_ITS | Encounter Summary ---
Author Organization [facility] Address [address] [facility] [address] [place] [id number] Care Team Providers Care Customer Services Manager Name Role Phone Az Allison MD Primary Care Provider [phone] Pascale Wolff MD Unavailable Encounter Details Date Type Department Care Team (Latest Contact Info) Description 12/02/2020 3:30 PM MANAGER CHEMISTRY Office Visit [facility] [address] [place] [phone] Stephie Pineda, MARY [address] [place] [address] Tendonitis of elbow, right (Primary Dx) Social History Tobacco Use Types [...] on file 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 Gender Identity Not on file Sexual Orientation Not on file documented as of this encounter Last Filed Vital Signs Vital Sign Reading Time Taken Comments Blood Pressure 142/88 12/02/2020 3:21 PM MANAGER CHEMISTRY Pulse 87 12/02/2020 3:21 PM MANAGER CHEMISTRY Temperature 35.8 ??C (96.4 ??F) 12/02/2020 3:21 PM CS T Respiratory Rate 16 12/02/2020 3:21 PM MANAGER CHEMISTRY Oxygen Saturation 98% 12/02/2020 3:21 PM MANAGER CHEMISTRY Inhaled Oxygen Concentration - - Weight 117.9 kg (260 lb) 12/02/2020 3:21 PM MANAGER CHEMISTRY Height 170.2 cm (5' 7 ) 12/02/2020 3:21 PM MANAGER CHEMISTRY Body Mass Index 40.72 12/02/2020 3:21 PM MANAGER CHEMISTRY documented in this encounter Patient Instructions * Patient Instructions* Stephie Pineda NP - 12/02/2020 3:30 PM MANAGER CHEMISTRY Try tramadol at nighttime for pain. Ibuprofen with food during the day. Medrol jack for the inflammation. If not improved by next week, we can get an x-ray and start physical therapy for this. GER CHEMISTRY documented in this encounter Ordered Prescriptions Prescription Sig Dispense Quantity Refills Last Filled Start Date End Date traMADoL (ULTRAM) 50 mg tabletIndications: Tendonitis of elbow, right Pt may take 1-2 tablets qhs as needed for pain 14 tablet 12/02/2020 1 methylPREDNISolone (MEDROL DOSEPACK) 4 mg DosepackIndication s:Tendonitis of elbow, right Take as directed on package. 21 tablet 12/02/2020 1 documented in this encounter Progress Notes * Stephie Pineda NP - 12/02/2020 3:30 PM CST Images from the original note were not included. Subjective/Objective Patient ID: Javier Sanchez is a 50 y.o. male. Chief Complaint No chief complaint on file. Right elbow has been painful for about 1 week now. He has been taking tramadol for pain that he had from an old injury and he states that it does helphim to sleep and be a little more comfortable at night. He does not take it during the day while atwork. He does not recall an injury but he states that he has had this pain before but it has alwayswent away on its own. This time the pain is worse and has stayed longer. He has taken Ibuprofen with no relief. Review of Systems Constitutional: Negative. HENT: Negative. Eyes: Negative. Respiratory: Negative. Cardiovascular: Negative. Gastrointestinal: Negative. Endocrine: Negative. Genitourinary: Negative. Musculoskeletal: Positive for arthralgias and myalgias. Skin: Negative. Allergic/Immunologic: Negative. Neurological: Negative. Psychiatric/Behavioral: Negative. Physical Exam Constitutional: Appearance: Normal appearance. HENT: Head: Normocephalic and atraumatic. Right Ear: External ear normal. Left Ear: External ear normal. Eyes: Extraocular Movements: Extraocular movements intact. Conjunctiva/sclera: Conjunctivae normal. Cardiovascular: Pulses: Normal pulses. Pulmonary: Effort: Pulmonary effort is normal. Musculoskeletal: Right elbow: Normal. Right wrist: He exhibits decreased range of motion and tenderness. Arms: Skin: General: Skin is warm and dry. Neurological: General: No focal deficit present. Mental Status: He is alert and oriented to person, place, and time. Psychiatric: Mood and Affect: Mood normal. Behavior: Behavior normal. Thought Content: Thought content normal. Judgment: Judgment normal. Assessment/Plan Diagnoses and all orders for this visit: Tendonitis of elbow, right (M77.8) (Primary) Assessment & Plan: Probable tendonitis. I advised that he try [...] for this. He agrees to the plan. Other orders - methylPREDNISolone (MEDROL DOSEPACK) 4 mg Dosepack; Take as directed on package. - traMADoL (ULTRAM) 50 mg tablet; Pt may take 1-2 tablets qhs as needed for pain Cosigned by Az Allison MD at 12/09/2020 9:19 AM MANAGER CHEMISTRY GER CHEMISTRY GER CHEMISTRY documented in this encounter Miscellaneous Notes * Assessment & Plan Note - Stephie Pineda NP - 12/05/2020 4:27 PM MANAGER CHEMISTRY Associated Problem(s): Tendonitis of elbow, right (Resolved 03/30/2021) Probable tendonitis. I advised that he try [...] for this. He agrees to the plan. GER CHEMISTRY GER CHEMISTRY documented in this encounter Plan of Treatment Not on file documented as of this encounter Visit Diagnoses Diagnosis Tendonitis of elbow, right- Primary documented in this encounter Discontinued Medications Medication Sig Discontinue Reason Start Date End Da te traMADoL (ULTRAM) 50 mg tablet Take 1 tablet (50 mg total) by mouth every 4 (four) hours as needed for pain Reorder 10/25/2020 12/02/2020 documented as of this encounter Additional Health Concerns Infection Onset Date Last Indicated Resolved Time COVID: Recovered Comment:Added based on recent COVID infection. 10/18/2020 10/18/2020 02/15/2021 3:05 AM C DT documented as of this encounter Care Teams Customer Services Manager Relationship Specialty Start Date End Date Az Allison MD [address] [place] [address] PCP - General 02/22/17 09/19/22 Pascale Wolff MD [address] [id number] Consulting Physician Sleep Medicine 12/06/19 documented as of this encounter
--- OUTSIDE RECORDS SUMMARY | 2024-11-24 10:09 | XMS_ITS | Encounter Summary ---
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 * Telephone Encounter - Zoila Self - 02/16/2021 2:47 PM CDT FYI TO MD: Pt was scheduled for 02-23-21 for his EMG/NVC & Transthoracic Echo Complete w Doppler @ [facility]. Pt states he had to r/s his tests due to work. He states his sob is not all the time. He has it when he comes up the stairs. He r/s'd his EMG/NVC & Transthoracic Echo Complete w Doppler for 03-24-21 @ [facility] & is f/u with Dr. Az Allison on 03-30-21. documented in this encounter Plan of Treatment Not on file documented as of this encounter Visit Diagnoses Not on filedocumented in this encounter Care Teams Career And Technology Education Teacher Relationship Specialty Start Date End Date Az Allison MD [address] [place] [address] PCP - General 02/22/17 09/19/22 Pascale Wolff MD [address] [id number] Consulting Physician Sleep Medicine 12/06/19 documented as of this encounter
--- OUTSIDE RECORDS SUMMARY | 2024-11-24 10:09 | XMS_ITS | Encounter Summary ---
Author Organization [facility] Address [address] [place] [address] Care Team Providers Care International Tax Manager Name Role Phone Az Allison MD Primary Care Provider [phone] Pascale Wolff MD Unavailable Reason for Referral * Neurology (Routine) - Closed Specialty Diagnoses / Procedures Referred By Monster blackwell Referred To Contact Diagnoses Numbness of right jaw Cervical radiculopathy Procedures EMG/NCV -Please select the performing region: [facility]; # Limbs? 1; Anatomical location: Az Griffith MD [address] [place] [address] Phone: tel: fax: [address] [phone] Referral ID Status Reason Start Date Expiration Date Visits Re quested Visits Authorized [id number] Closed 02/16/2021 03/18/2022 1 1 Reason for Visit * Neurology (Routine) - Closed Specialty Diagnoses / Procedures Referred By Monster blackwell Referred To Contact Diagnoses Numbness of right jaw Cervical radiculopathy Procedures EMG/NCV -Please select the performing region: [facility]; # Limbs? 1; Anatomical location: Az Griffith MD [address] [place] [address] Phone: tel: fax: [facility] [address] [place] [address] Referral ID Status Reason Start Date Expiration Date Visits Re quested Visits Authorized [id number] Closed 02/16/2021 03/18/2022 1 1 Encounter Details Date Type Department Care Team (Late st Contact Info) Description 03/24/2021 9:00 AM CDT - 03/24/2021 11:59 PM CDT Hospital Encounter [facility] Neurological Disorders Testing [address] [place] [address] Az Allison MD [address] [place] [address] Numbness of right jaw; Cervical radiculopathy Discharge Disposition: Discharge to home or self [...] on file 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 Reason for Study Mr. Sanchez is a 50-year-old with chief complaints of right arm tingling and numbness. Electrodiagnostic Report Right median palmar orthodromic sensory nerve with prolonged SNAP peak latency, reduced SNAP peak amplitude, slow SNCV. Right ulnar palmar orthodromic and right radial antidromic sensory nerve conduction studies revealed normal SNAP peak latencies, SNAP peak amplitudes and SNCVs. Right median and right ulnar motor nerve conduction studies revealed normal distal latencies, normal compound motor action potential amplitudes, normal motor nerve conduction velocities and normal F-wave latencies. Electromyography Concentric electrode sampled right abductor pollicis brevis, abductor digiti minimi, extensor indicis proprius, 1st dorsal interossei, flexor carpi ulnaris, deltoid, and cervical paraspinal muscles. No abnormal insertion or spontaneous activity was generated. Motor unit potentials were normal. Impression This is an abnormal electrodiagnostic study with evidence of mild right median sensory entrapment neuropathy at the flexor retinaculum, i.e., carpal tunnel syndrome. Job ID/VF Job ID: [id number] documented in this encounter Plan of Treatment Not on file documented as of this encounter Procedures Procedure Name Priority Date/Time Associated Diagnosis Comments EMG/NCV Routine 03/24/2021 9:04 AM CDT Numbness of right jaw Cervical radiculopathy documented in this encounter Results * EMG/NCV -Please select the performing region: [facility]; # Limbs? 1; Anatomical location: RUE (03/24/2021 9:04 AM CDT) Anatomical Region Laterality Modality EMG, EMG Narrative Procedure Note Pascale Wolff MD - 03/24/2021 12:00 AM CDT Requesting Physician Az Allison MD. Reason for Study Mr. Sanchez is a 50-year-old with chief complaints of right arm tingling andnumbness. Electrodiagnostic Report Right median palmar orthodromic sensory nerve with prolonged SNAP peaklatency, reduced SNAP peak amplitude, slow SNCV. Right ulnar palmarorthodromic and right radial antidromic sensory nerve conduction studiesrevealed normal SNAP peak latencies, SNAP peak amplitudes and SNCVs.Right median and right ulnar motor nerve conduction studies revealednormal distal latencies, normal compound motor action potentialamplitudes, normal motor nerve conduction velocities and normal F-wavelatencies. Electromyography Concentric electrode sampled right abductor pollicis brevis, abductordigiti minimi, extensor indicis proprius, 1st dorsal interossei, flexorcarpi ulnaris, deltoid, and cervical paraspinal muscles. No abnormalinsertion or spontaneous activity was generated. Motor unit potentialswere normal. Impression This is an abnormal electrodiagnostic study with evidence of mild rightmedian sensory entrapment neuropathy at the flexor retinaculum, i.e.,carpal tunnel syndrome. Job ID/VF Job ID: [id number] us Az Allison MD NEUROLOGY ORDERABLES Final Re sult documented in this encounter Visit Diagnoses Diagnosis Numbness of right jaw Cervical radiculopathy Brachial neuritis or radiculitis nos documented in this encounter Care Teams International Tax Manager Relationship Specialty Start Date End Date Az Allison MD [address] [id number] PCP - General 02/22/17 09/19/22 Pascale Wolff MD [address] [id number] Consulting Physician Sleep Medicine 12/06/19 documented as of this encounter
--- OUTSIDE RECORDS SUMMARY | 2024-11-24 10:09 | XMS_ITS | Encounter Summary ---
Author Organization [facility] Address [address] [facility] [address] [place] [id number] Care Team Providers Care Manager Company Name Role Phone Az Allison MD Primary Care Provider [phone] Pascale Wolff MD Unavailable Reason for Visit * Reason Comments Biometric screening Encounter Details Date Type Department Care Team (Late st Contact Info) Description 10/03/2020 2:40 PM AEROSPACE QUALITY ENGINEER Office Visit [facility] [address] [place] [phone] Az Allison MD [address] [address] Essential hypertension (Primary Dx); Mixed hyperlipidemia; Non morbid obesity; Steatohepatitis, non-alcoholic; Chronic obstructive pulmonary disease, unspecified COPD type (CMS/HCC); Hyperglycemia; Dysfunction of both eustachian tubes Social History Tobacco Use Types Packs/Day Years Used Date Smoking Tobacco: Former Cigarettes 1 24 0 07/14/1990 - 06/25/2014 Smokeless Tobacco: Never Tobacco Cessation:Counseling Given: Yes Alcohol Use Standard Drinks/Week Comments No 0 (1 standard drink = 0.6 oz pur e alcohol) PHQ-2 Answer Date Recorded PHQ-2 Total Score (If total score is 3 or more points, staff should administer the PHQ-9) 0 07/22/2020 Sex and Gender Information Value Date Recorded Sex Assigned at Not on file Legal Sex Male 9:12 AM 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 ENGINEER Gender Identity Not on file Sexual Orientation Not on file documented as of this encounter Last Filed Vital Signs Vital Sign Reading Time Taken Comments Blood Pressure 110/52 10/03/2020 2:45 PM AEROSPACE QUALITY ENGINEER Pulse 57 10/03/2020 2:45 PM AEROSPACE QUALITY ENGINEER Temperature 36.1 ??C (96.9 ??F) 10/03/2020 2:45 PM CS T Respiratory Rate 20 10/03/2020 2:45 PM AEROSPACE QUALITY ENGINEER Oxygen Saturation 97% 10/03/2020 2:45 PM AEROSPACE QUALITY ENGINEER Inhaled Oxygen Concentration - - Weight 118.4 kg (261 lb) 10/03/2020 2:45 PM AEROSPACE QUALITY ENGINEER Height 170.2 cm (5' 7 ) 10/03/2020 2:45 PM AEROSPACE QUALITY ENGINEER Body Mass Index 40.88 10/03/2020 2:45 PM AEROSPACE QUALITY ENGINEER documented in this encounter Patient Instructions * Patient Instructions* Az Allison MD - 10/03/2020 2:40 PM AEROSPACE QUALITY ENGINEER Continue current medications. Start Astelin and Mucinex for ear congestion. Continue inhalers for your cough. front desk attendant will arrange for COVID testing at the [facility] today if possible, or tomorrow. Isolate at home per any work rules until COVID results are available. If your ears are not getting better, call for a course of antibiotics and referral to ENT. Follow up as scheduled or sooner if needed. SPACE QUALITY ENGINEER SPACE QUALITY ENGINEER documented in this encounter Ordered Prescriptions Prescription Sig Dispense Quantity Refills Last Filled Start Date End Date azelastine (ASTELIN) 137 mcg (0.1 %) nasal sprayIndications:D ysfunction of both eustachian tubes Administer 1 spray into each nostril 2 (two) times a day Use in each nostril as directed 30 mL 5 10/03/2020 documented in this encounter Progress Notes * Az Allison MD - 10/03/2020 2:40 PM CST Problem List Items Addressed This Visit Nervous Dysfunction of both eustachian tubes Since last , about five days ago, he has had congestion in his ears. It feels like there irshi hollow sound. Exam shows bilateral TM sclerosis [...] and there is no pain as such. Relevant Medications azelastine (ASTELIN) 137 mcg (0.1 %) nasal spray Respiratory Chronic obstructive pulmonary disease (CMS/HCC) (Chronic) He has chronic COPD from allergies. He is on a couple of inhalers. He has no fever. Lungs are clearand oxygen saturation is normal. However, he is coughing a little more than usual and his workplaceis requiring a COVID test. We will get that set up and have him self quarantine until it is available, hopefully in the next day or two. Relevant Medications guaiFENesin ER (MUCINEX) 600 mg 12 hr tablet Circulatory Essential hypertension - Primary (Chronic) He is here for biometric screening so he can get a discount on his health insurance. Blood pressureis in a good range on his current therapy. Continue same. Digestive Steatohepatitis, non-alcoholic (Chronic) His last set of labs did show a mild elevation of ALT. He has fatty liver from being overweight. Workup for other causes of chronic hepatitis was negative. I encouraged him to work on some weight loss. Non morbid obesity (Chronic) We recommended attention to his diet and hopefully some weight loss. Endocrine/Metabolic Mixed hyperlipidemia (Chronic) We went over his lipids for purposes of the biometric screening. Ten year cardiovascular risk remains fairly low. Hyperglycemia (Chronic) We discussed the mild elevation of his blood sugar which might be pre diabetes. Weight loss would be helpful. Routine/Preventive Care: He had his flu shot this year. HPI: The patient presents for discussion of biometric testing so we can get a discount on his health insurance. He also requested evaluation for bilateral ear congestion present since last . This appears to be a serous otitis media with eustachian tube dysfunction. We are having him try some Astelin and Mucinex. He does not really have seasonal allergies, but he does have some chronic COPD which is managed with inhalers. He has not been running a fever or having any other new constitutional symptoms. His employer is strongly recommending that he have COVID testing but also required self-quarantine pending results of the COVID test. We will refer him to the [facility] for this procedure and hopefully get the results back soon. Return here as needed if his ears are not getting better. Review of Systems Constitutional: Negative for fever. HENT: Positive for hearing loss (ears have been congested, sound seems hollow). Respiratory: Positive for cough (from mulching his leaves and using ceramic coating his bathtub). Negative for wheezing. Cardiovascular: Negative for leg swelling. Gastrointestinal: Fatty liver. Endocrine: Obese. Current medication list reviewed and reconciled. See After Visit Summary for details. Allergies Allergen Reactions ??? Hydrocodone-Acetaminophen Stomach upset and Sweating ??? Penicillins Rash Red itchy rash a day or two after starting it. Past Medical, Family and Social History: Pertinent details reviewed. Vitals: 10/03/20 1445 BP: 110/52 BP Location: Left arm Patient Position: Sitting Pulse: 57 Resp: 20 Temp: 36.1 ??C (96.9 ??F) SpO2: 97% Weight: 118.4 kg (261 lb) Height: 170.2 cm (5' 7 ) Physical Exam Constitutional: General: He is not in acute distress. HENT: Ears: Comments: Bilateral TM sclerosis although light reflex appears preserved. There is no erythema. There may be a healed right TM central perforation. There is no discharge. Pulmonary: Effort: Pulmonary effort is normal. Breath sounds: No wheezing or rales. Musculoskeletal: Right lower leg: No edema. Left lower leg: No edema. Lymphadenopathy: Cervical: No cervical adenopathy (There is no head and neck, supraclavicular, or axillary adenopathy detected). Neurological: Mental Status: He is alert. Psychiatric: Mood and Affect: Mood normal. Behavior: Behavior normal. Thought Content: Thought content normal. Labs/Imaging/Other: Nothing new ordered at this time, but we did refer him to the [facility] for COVID testing as recommended by his employer. Patient Active Problem List Diagnosis Code ??? Non morbid obesity E66.9 ??? Mild persistent asthma without complication J45.30 ??? Hyperglycemia R73.9 ??? Essential hypertension I10 ??? Persistent mood disorder (CMS/HCC) F34.9 ??? Low back pain M54.5 ??? Steatosis of liver K76.0 ??? Chronic obstructive pulmonary disease (CMS/HCC) J44.9 ??? Elevated serum creatinine R79.89 ??? Polycythemia D75.1 ??? Chronic coronary artery disease I25.10 ??? LV dysfunction I51.9 ??? Other fatigue R53.83 ??? Steatohepatitis, non-alcoholic K75.81 ??? Verruca vulgaris B07.8 ??? Diarrhea R19.7 ??? Severe obstructive sleep apnea G47.33 ??? Male erectile disorder N52.9 ??? Mixed hyperlipidemia E78.2 ??? Dysfunction of both eustachian tubes H69.83 SPACE QUALITY ENGINEER documented in this encounter Miscellaneous Notes * Assessment & Plan Note - Az Allison MD - 10/09/2020 10:37 AM AEROSPACE QUALITY ENGINEER Associated Problem(s): Morbid obesity (HCC) We recommended attention to his diet and hopefully some weight loss. SPACE QUALITY ENGINEER * Assessment & Plan Note - Az Allison MD - 10/03/2020 3:47 PM AEROSPACE QUALITY ENGINEER Associated Problem(s): Steatohepatitis, non-alcoholic His last set of labs did show a mild elevation of ALT. He has fatty liver from being overweight. Workup for other causes of chronic hepatitis was negative. I encouraged him to work on some weight loss. SPACE QUALITY ENGINEER * Assessment & Plan Note - Az Allison MD - 10/03/2020 3:47 PM AEROSPACE QUALITY ENGINEER Associated Problem(s): Hyperlipidemia We went over his lipids for purposes of the biometric screening. Ten year cardiovascular risk remains fairly low. SPACE QUALITY ENGINEER SPACE QUALITY ENGINEER * Assessment & Plan Note - Az Allison MD - 10/03/2020 3:46 PM AEROSPACE QUALITY ENGINEER Associated Problem(s): Hyperglycemia We discussed the mild elevation of his blood sugar which might be pre diabetes. Weight loss would be helpful. SPACE QUALITY ENGINEER * Assessment & Plan Note - Az Allison MD - 10/03/2020 3:45 PM AEROSPACE QUALITY ENGINEER Associated Problem(s): Hypertension He is here for biometric screening so he can get a discount on his health insurance. Blood pressureis in a good range on his current therapy. Continue same. SPACE QUALITY ENGINEER * Assessment & Plan Note - Az Allison MD - 10/03/2020 3:44 PM AEROSPACE QUALITY ENGINEER Associated Problem(s): Dysfunction of both eustachian tubes (Resolved 01/27/2021) Since last , about five days ago, he has had congestion in his ears. It feels like there rishi hollow sound. Exam shows bilateral TM sclerosis [...] and there is no pain as such. SPACE QUALITY ENGINEER SPACE QUALITY ENGINEER * Assessment & Plan Note - Az Allison MD - 10/03/2020 3:43 PM AEROSPACE QUALITY ENGINEER Associated Problem(s): Chronic obstructive pulmonary disease (HCC) He has chronic COPD from allergies. He is on a couple of inhalers. He has no fever. Lungs are clearand oxygen saturation is normal. However, he is coughing a little more than usual and his workplaceis requiring a COVID test. We will get that set up and have him self quarantine until it is available, hopefully in the next day or two. SPACE QUALITY ENGINEER SPACE QUALITY ENGINEER documented in this encounter Plan of Treatment Not on file documented as of this encounter Visit Diagnoses Diagnosis Essential hypertension- Primary Unspecified essential hypertension Mixed hyperlipidemia Non morbid obesity Steatohepatitis, non-alcoholic Chronic obstructive pulmonary disease, unspecified COPD type (HCC) Hyperglycemia Other abnormal glucose Dysfunction of both eustachian tubes documented in this encounter Historical Medications * This list may reflect changes made after this encounter. guaiFENesin ER (MUCINEX) 600 mg 12 hr tablet Take 600 mg by mouth 2 (two) times a day 10/03/2020 11/04/2020 added in this encounter Care Teams Manager Company Relationship Specialty Start Date End Date Az Allison MD [address] [place] [id number] PCP - General 02/22/17 09/19/22 Pascale Wolff MD [address] [place] [id number] Consulting Physician Sleep Medicine 12/06/19 documented as of this encounter
--- OUTSIDE RECORDS SUMMARY | 2024-11-24 10:09 | XMS_ITS | Encounter Summary ---
Author Organization [facility] Address [address] [place] [id number] Care Team Providers Care Visitor Services Information Assistant Name Role Phone Thelma Allison MD Primary Care Provider Pascale Wolff MD Unavailable Reason for Referral * Neurology (Routine) - Closed Specialty Diagnoses / Procedures Referred By Monster blackwell Referred To Contact Diagnoses Numbness of right jaw Cervical radiculopathy Procedures EMG/NCV -Please select the performing region: [facility]; # Limbs? 1; Anatomical location: Thelma Griffith MD [address] [place] [address] Phone: tel: fax: [address] [phone] Referral ID Status Reason Start Date Expiration Date Visits Re quested Visits Authorized [id number] Closed 02/16/2021 03/18/2022 1 1 * Cardiology (Routine) - Closed Specialty Diagnoses / Procedures Referred By Monster blackwell Referred To Contact Diagnoses SOB (shortness of breath) Procedures Transthoracic Echo Complete W Doppler/CF Thelma Allison MD [address] [place] [address] Phone: tel: fax: [address] [place] [phone] Referral ID Status Reason Start Date Expiration Date Visits Re quested Visits Authorized [id number] Closed 01/27/2021 02/26/2022 1 1 [employer] Reason for Visit * Reason Comments Follow-up 6 months Encounter Details Date Type Department Care Team (Late st Contact Info) Description 01/27/2021 2:40 PM [employer] Office Visit [facility] [address] [place] [address] Thelma Allison MD [address] [address] Numbness of right jaw (Primary Dx); Essential hypertension; Mixed hyperlipidemia; Chronic obstructive pulmonary disease, unspecified COPD type (CMS/HCC); Chronic coronary artery disease; LV dysfunction; Severe obstructive sleep apnea; Steatohepatitis, non-alcoholic; Morbid obesity (CMS/HCC); SOB (shortness of breath); Rectal bleeding; Numbness; Cervical radiculopathy Social History Tobacco Use Types Packs/Day Years [...] on file Legal Sex Male 9:12 AM [employer] Gender Identity Not on file Sexual Orientation Not on file documented as of this encounter Last Filed Vital Signs Vital Sign Reading Time Taken Comments Blood Pressure 142/82 01/27/2021 3:51 PM [employer] Pulse 65 01/27/2021 2:30 PM [employer] Temperature 36.3 ??C (97.3 ??F) 01/27/2021 2:30 PM CS T Respiratory Rate 14 01/27/2021 2:30 PM [employer] Oxygen Saturation 98% 01/27/2021 2:30 PM [employer] Inhaled Oxygen Concentration - - Weight 123.8 kg (273 lb) 01/27/2021 2:30 PM [employer] Height 170.2 cm (5' 7 ) 01/27/2021 2:30 PM [employer] Body Mass Index 42.76 01/27/2021 2:30 PM [employer] documented in this encounter Patient Instructions * Patient Instructions* Thelma Allison MD - 01/27/2021 2:40 PM [employer] Recommend you get the Covid vaccination when able. Keep preventive care up to date, see brochure. Continue current medications. Adjust meds for hypertension as needed. Check with your insurance about your inhaler, find a cheaper one. test desk supervisor will order labs to be done before next visit (CMP, lipids). test desk supervisor will refer you to Dr. Silva for anal bleeding from hemorrhoids versus skin tags. test desk supervisor will order EMG/NCS of right arm for numbness in shoulder and jaw. test desk supervisor will order an echocardiogram for shortness of breath. Continue efforts to stay active and eat right. Try to lose significant weight. Follow up in 3 weeks, or sooner if needed. [employer] documented in this encounter Progress Notes * Thelma Allison MD - 01/27/2021 2:40 PM CST Problem List Items Addressed This Visit Respiratory Severe obstructive sleep apnea (Chronic) He continues on CPAP. He gets a good night's sleep. Chronic obstructive pulmonary disease (CMS/HCC) (Chronic) He has mild to moderate symptoms. He has a rescue inhaler for use as needed. He has not been using his Symbicort because it is so expensive. He will call his insurance to see if alternatives are available. Circulatory LV dysfunction (Chronic) He had a cardiac catheterization five or [...] alternative inhalers, and follow-up in six weeks. Janis also get an echocardiogram to make sure LV function remains normal. Essential hypertension - Primary (Chronic) Systolic blood pressure is somewhat borderline. We will have him continue current medications, losesome weight, and see him back in six weeks for a recheck. Relevant Orders Comprehensive metabolic panel Lipid panel Chronic coronary artery disease (Chronic) He had mild coronary disease on cardiac catheterization about six years ago. He takes an aspirin every day. We also recommend lifestyle modification. Digestive Steatohepatitis, non-alcoholic (Chronic) He has had a mild elevation of liver enzymes. I recommended weight loss. We will monitor labs periodically. Rectal bleeding Relevant Orders Ambulatory referral to General Surgery Morbid obesity (CMS/HCC) (Chronic) He has started to work on his weight. His girlfriend who is a nurse is helping him. Hopefully this will get him on a trend downward instead of upward. Endocrine/Metabolic Mixed hyperlipidemia (Chronic) Ten year cardiovascular risk remains relatively low. [...] 222 (H) 07/21/2019 TRIG 177 (H) 10/22/2018 Other Visit Diagnoses Numbness of right jaw Relevant Orders EMG/NCV -Please select the performing region: [facility]; # Limbs? 1; Anatomical location: RUE SOB (shortness of breath) Relevant Orders Transthoracic Echo Complete W Doppler/CF Numbness Relevant Orders EMG/NCV -Please select the performing region: [facility]; # Limbs? 1; Anatomical location: RUE Routine/Preventive Care: He had his flu shot. We recommended the COVID shot. HPI: Patient presents for periodic evaluation and management of several medical problems. See abovefor details. We plan to see him back in three weeks to discuss results of some follow-up testing., and to check his blood pressure again. Review of Systems Constitutional: Negative for fever. HENT: Negative for hearing loss and rhinorrhea. Eyes: Negative for photophobia, discharge and redness. Respiratory: Positive for shortness of breath (with mild exertion, e.g., walking to the truck). Negative for wheezing. 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 Cardiovascular: Negative for chest pain and leg swelling. Gastrointestinal: Positive for anal bleeding (wipe type). Negative for abdominal pain, blood in stool, constipation and diarrhea. Endocrine: Obese. Genitourinary: Negative for dysuria and hematuria. Musculoskeletal: Positive for arthralgias (right elbow still bothering him, past 6 weeks or more) and neck pain (some stiffness in his neck, past 2 weeks). Negative for joint swelling. Skin: Negative for rash. Allergic/Immunologic: Negative for environmental allergies. Neurological: Positive for numbness (right shoulder and jaw if he lays his elbow on the table for too long). Negative for tremors. Hematological: Negative for adenopathy. Psychiatric/Behavioral: Negative for dysphoric mood. Current medication list reviewed and reconciled. See After Visit Summary for details. Allergies Allergen Reactions ??? Penicillins Rash Red itchy rash a day or two after starting it. ??? Hydrocodone Stomach upset Past Medical, Family and Social History: Pertinent details reviewed. Vitals: 01/27/21 1430 01/27/21 1551 BP: 148/82 142/82 BP Location: Left arm Patient Position: Sitting Pulse: 65 Resp: 14 Temp: 36.3 ??C (97.3 ??F) SpO2: 98% Weight: 123.8 kg (273 lb) Height: 170.2 cm (5' 7 ) Physical Exam Constitutional: General: He is not in acute distress. Appearance: He is obese. HENT: Right Ear: Ear canal normal. Left Ear: Tympanic membrane and ear canal normal. Ears: Comments: Right TM not well seen due to narrow angulated canal, but there is no discharge or redness noted. Mouth/Throat: Comments: Deferred. Eyes: General: No scleral icterus. Right eye: No discharge. Left eye: No discharge. Conjunctiva/sclera: Conjunctivae normal. Comments: No dysconjugate gaze or nystagmus. Neck: Thyroid: No thyromegaly. Vascular: No carotid bruit. Cardiovascular: Rate and Rhythm: Normal rate and regular rhythm. Pulses: Carotid pulses are 1+ on the right side and 1+ on the left side. Radial pulses are 2+ on the right side and 2+ on the left side. Dorsalis pedis pulses are 2+ on the right side and 2+ on the left side. Posterior tibial pulses are 2+ on the right side and 2+ on the left side. Heart sounds: Normal heart sounds. No murmur. No friction rub. No gallop. Pulmonary: Effort: Pulmonary effort is normal. No respiratory distress. Breath sounds: Normal breath sounds. No wheezing or rales. Abdominal: Palpations: Abdomen is soft. There is no mass. Tenderness: There is no abdominal tenderness. There is no guarding. Genitourinary: Comments: External skin tags versus hemorrhoids, no active bleeding. Some tags removed from his genitals about 18 months ago by General surgery. Musculoskeletal: General: No tenderness. Right lower leg: No edema. Left lower leg: No edema. Comments: No joint warmth or swelling noted. Lymphadenopathy: Head: Right side of head: No preauricular, posterior auricular or occipital adenopathy. Left side of head: No preauricular, posterior auricular or occipital adenopathy. Cervical: No cervical adenopathy. Upper Body: Right upper body: No supraclavicular or axillary adenopathy. Left upper body: No supraclavicular or axillary adenopathy. Skin: General: Skin is warm. Findings: No rash. Neurological: Mental Status: He is alert. Cranial Nerves: No cranial nerve deficit. Comments: Motor strength, coordination without observed lateralizing deficit. Psychiatric: Mood and Affect: Mood normal. Behavior: Behavior normal. Thought Content: Thought content normal. Labs/Imaging/Other: We ordered an EMG and nerve conduction study for some numbness in the right shoulder and jaw area which could be a cervical nerve root problem. We ordered an echocardiogram to follow-up on some abnormalities reported at his catheterization five or six years ago. Patient Active Problem List Diagnosis Code ??? Morbid obesity (CMS/HCC) E66.01 ??? Mild persistent asthma without complication J45.30 [...] non-alcoholic K75.81 ??? Verruca vulgaris B07.8 ??? Severe obstructive sleep apnea G47.33 ??? Male erectile disorder N52.9 ??? Mixed hyperlipidemia E78.2 ??? Tendonitis of elbow, right M77.8 ??? Rectal bleeding K62.5 * Maribell Baird MA - 01/27/2021 2:40 PM CST Labs ordered 01-27-21 are due documented in this encounter Miscellaneous Notes * Assessment & Plan Note - Thelma Allison MD - 01/27/2021 4:06 PM [employer] Associated Problem(s): Chronic obstructive pulmonary disease (HCC) He has mild to moderate symptoms. He has a rescue inhaler for use as needed. He has not been using his Symbicort because it is so expensive. He will call his insurance to see if alternatives are available. [employer] * Assessment & Plan Note - Thelma Allison MD - 01/27/2021 4:06 PM [employer] Associated Problem(s): Coronary artery disease without angina pectoris He had mild coronary disease on cardiac catheterization about six years ago. He takes an aspirin every day. We also recommend lifestyle modification. [employer] * Assessment & Plan Note - Thelma Allison MD - 01/27/2021 4:05 PM [employer] Associated Problem(s): Hypertension Systolic blood pressure is somewhat borderline. We will have him continue current medications, losesome weight, and see him back in six weeks for a recheck. [employer] * Assessment & Plan Note - Thelma Allison MD - 01/27/2021 4:04 PM [employer] Associated Problem(s): LV dysfunction He had a cardiac catheterization five or [...] alternative inhalers, and follow-up in six weeks. Lashondaadal also get an echocardiogram to make sure LV function remains normal. [employer] * Assessment & Plan Note - Thelma Allison MD - 01/27/2021 4:04 PM [employer] Associated Problem(s): Hyperlipidemia Ten year cardiovascular risk remains relatively low. [...] 222 (H) 07/21/2019 TRIG 177 (H) 10/22/2018 [employer] * Assessment & Plan Note - Thelma Allison MD - 01/27/2021 4:03 PM [employer] Associated Problem(s): Morbid obesity (HCC) He has started to work on his weight. His girlfriend who is a nurse is helping him. Hopefully this will get him on a trend downward instead of upward. [employer] * Assessment & Plan Note - Thelma Allison MD - 01/27/2021 4:03 PM [employer] Associated Problem(s): ERICH (obstructive sleep apnea) He continues on CPAP. He gets a good night's sleep. [employer] * Assessment & Plan Note - Thelma Allison MD - 01/27/2021 4:03 PM [employer] Associated Problem(s): Steatohepatitis, non-alcoholic He has had a mild elevation of liver enzymes. I recommended weight loss. We will monitor labs periodically. [employer] * Addendum Note - Ladan Self - 01/27/2021 2:40 PM CSTAddended by: LADAN SELF on: 02/16/2021 02:43 PM Modules accepted: Orders * Addendum Note - Ladan Self - 01/27/2021 2:40 PM CSTAddended by: LADAN SELF on: 02/16/2021 02:59 PM Modules accepted: Orders documented in this encounter Plan of Treatment Scheduled Orders Name Type Priority Associated Diagnoses Orde r Schedule Comprehensive metabolic panel Lab Routine Essential hypertension Expected: 01/27/2021, Expires: 01/27/2022 Lipid panel Lab Routine Essential hypertension Expected: 01/27/2021, Expires: 01/27/2022 documented as of this encounter Results * EMG/NCV -Please select the performing region: [facility]; # Limbs? 1; Anatomical location: RUE (03/24/2021 9:04 AM CDT) Anatomical Region Laterality Modality EMG, EMG Narrative Procedure Note Pascale Wolff MD - 03/24/2021 12:00 AM CDT Requesting Physician Thelma Allison MD. Reason for Study Mr. Sanchez [...] i.e.,carpal tunnel syndrome. 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 Location: Echo Lab 3 Ref.Provider: THELMA ALLISON [...] Procedure Note Gordon Leach, DO - 03/24/[address] [place] [address] Echocardiogram Report Patient Name: JAVIER SANCHEZ RPatient ID: [id number] : [id number] Date: 03/24/2021 07:45:59 Gender: MAccession #: [id number] Tech: NPLocation: Echo Lab 3 Ref.Provider: THELMA [...] By: Dr Gordon Leach 2021-03-24 13:25:06 CDT Thelma Allison MD CV ECHO PROCEDURES Final Resu lt documented in this encounter Visit Diagnoses Diagnosis Numbness of right jaw- Primary Essential hypertension Unspecified essential hypertension Mixed hyperlipidemia Chronic obstructive pulmonary disease, unspecified COPD type (HCC) Chronic coronary artery disease Coronary atherosclerosis of unspecified type of vessel, sun'aq or graft LV dysfunction Left heart failure Severe obstructive sleep apnea Steatohepatitis, non-alcoholic Morbid obesity (HCC) Morbid obesity SOB (shortness of breath) Shortness of breath Rectal bleeding Hemorrhage of rectum and anus Numbness Disturbance of skin sensation Cervical radiculopathy Brachial neuritis or radiculitis nos SOB (shortness of breath) Shortness of breath Numbness of right jaw Cervical radiculopathy Brachial neuritis or radiculitis nos documented in this encounter Discontinued Medications Medication Sig Discontinue Reason Start Date End Da te cefadroxil (DURICEF) 500 mg capsuleIndications:Upper Respiratory/HEENT Infection Take 1 capsule (500 mg total) by mouth 2 (two) times a day Therapy completed 10/25/2020 11/04/2020 guaiFENesin ER (MUCINEX) 600 mg 12 hr tablet Take 600 mg by mouth 2 (two) times a day Therapy completed 10/03/2020 11/04/2020 traMADoL (ULTRAM) 50 mg tabletIndications:Tendon itis of elbow, right Pt may take 1-2 tablets qhs as needed for pain Other 12/02/2020 01/27/2021 documented as of this encounter Historical Medications * This list may reflect changes made after this encounter. cyclobenzaprine (FLEXERIL) 10 mg tablet Take 1 tablet by mouth nightly 01/11/2021 03/24/2021 clindamycin (CLEOCIN) 300 mg capsule Take 1 capsule by mouth 3 (three) times a day 12/15/2020 12/22/2020 added in this encounter Additional Health Concerns Infection Onset Date Last Indicated Resolved Time COVID: Recovered Comment:Added based on recent COVID infection. 10/18/2020 10/18/2020 02/15/2021 3:05 AM C DT documented as of this encounter Care Teams Visitor Services Information Assistant Relationship Specialty Start Date End Date Thelma Allison MD [address] [place] [address] PCP - General 02/22/17 09/19/22 Pascale Wolff MD [address] [place] [address] Consulting Physician Sleep Medicine 12/06/19 documented as of this encounter
--- OUTSIDE RECORDS SUMMARY | 2024-11-24 10:09 | XMS_ITS | Encounter Summary ---
Author Organization [facility] Address [address] [place] [id number] Care Team Providers Care Darkroom Worker Name Role Phone Az Allison MD Primary Care Provider [phone] Pascale Wolff MD Unavailable Reason for Visit * Reason Comments Follow-up Encounter Details Date Type Department Care Team (Late st Contact Info) Description 03/30/2021 2:00 PM CDT Office Visit [facility] [address] [place] [phone] Az Allison MD [address] [address] Mild carpal tunnel syndrome of right wrist (Primary Dx); Essential hypertension; Persistent mood disorder (CMS/HCC); LV dysfunction; Mild intermittent asthma without complication Social History Tobacco Use Types Packs/Day Years [...] on file 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 Gender Identity Not on file Sexual Orientation Not on file documented as of this encounter Last Filed Vital Signs Vital Sign Reading Time Taken Comments Blood Pressure 102/60 03/30/2021 2:00 PM CDT Pulse 57 03/30/2021 2:00 PM CDT Temperature 36.1 ??C (96.9 ??F) 03/30/2021 2:00 PM CD T Respiratory Rate 18 03/30/2021 2:00 PM CDT Oxygen Saturation 99% 03/30/2021 2:00 PM CDT Inhaled Oxygen Concentration - - Weight 115.2 kg (254 lb) 03/30/2021 2:00 PM CDT Height 170.2 cm (5' 7 ) 03/30/2021 2:00 PM CDT Body Mass Index 39.78 03/30/2021 2:00 PM CDT documented in this encounter Patient Instructions * Patient Instructions* Az Allison MD - 03/30/2021 2:00 PM CDT Tetanus update (TDAP) recommended unless received in the past 10 years. Recommend you get the second dose of Covid vaccination when due. You have mild right carpal tunnel syndrome. Initial treatment usually entails some nonsteroidal medication, a cock-up wrist splint, and possibly some physical therapy. The CTS does not explain your neck/jaw pain, and additional evaluation/imaging might be appropriate if symptoms persist/worsen. Otherwise, continue current medications and follow up in about 6 months. documented in this encounter Progress Notes * Az Allison MD - 03/30/2021 2:00 PM CDT Problem List Items Addressed This Visit Nervous Mild carpal tunnel syndrome of right wrist - Primary (Chronic) He had bilateral CTS surgery about six [...] we can order additional testing or referral. Respiratory Mild intermittent asthma without complication He stopped using Symbicort about two months ago when he ran out. He could not afford the refills but says he does not feel he needs this inhaler at this time. He says the albuterol is working just fine. Today, lungs are clear and oxygen saturation is normal. Circulatory LV dysfunction (Chronic) He has had some borderline LV systolic function on previous evaluations. He was complaining of someshortness of breath so we ordered a follow-up echo which shows normal LV systolic function. He alsohas some mild intermittent asthma. He now says that the previous symptoms have resolved. He no longer feels short of breath. We will continue current therapy. Follow-up in six months. Essential hypertension (Chronic) Blood pressure is in a good range on losartan. Continue same, and follow-up in six months. Other Persistent mood disorder (CMS/HCC) (Chronic) He says his mood is good on Cymbalta. Continue same. Routine/Preventive Care: He had the first of the SARS-CoV-2 vaccines. Once he has completed that series, I recommend he wait about a month and then get a tetanus update. HPI: The patient presents for evaluation and management of several symptoms he had earlier this year including some shortness of breath with exertion and some numbness and tingling in his right arm and shoulder area. All symptoms have improved if not resolved. We plan to see him back in six months,or sooner if needed. Review of Systems Respiratory: Negative for shortness of breath (Seems to have subsided) and wheezing ( uses a rescueinhaler as needed, stop using Symbicort because it was too expensive and he did not need it). Cardiovascular: Negative for chest pain and leg swelling. Neurological: Negative for numbness ( the numbness and tingling in his right arm and shoulder area have largely resolved, EMG was suggestive of mild right carpal tunnel syndrome). Psychiatric/Behavioral: Negative for dysphoric mood ( he says his mood is good on current therapy). Current medication list reviewed and reconciled. See After Visit Summary for details. Allergies Allergen Reactions ??? Penicillins Rash Red itchy rash a day or two after starting it. ??? Hydrocodone Stomach upset Past Medical, Family and Social History: Pertinent details reviewed. Vitals: 03/30/21 1400 BP: 102/60 BP Location: Right arm Patient Position: Sitting Pulse: 57 Resp: 18 Temp: 36.1 ??C (96.9 ??F) SpO2: 99% Weight: 115.2 kg (254 lb) Height: 170.2 cm (5' 7 ) Physical Exam Constitutional: Appearance: He is obese. Cardiovascular: Rate and Rhythm: Normal rate and regular rhythm. Heart sounds: No murmur. Pulmonary: Effort: Pulmonary effort is normal. Breath sounds: No wheezing or rales. Musculoskeletal: Right lower leg: No edema. Left lower leg: No edema. Neurological: Mental Status: He is alert. Psychiatric: Behavior: Behavior normal. Thought Content: Thought content normal. Comments: Affect mildly flat. Labs/Imaging/Other: Nothing new ordered at this time. Patient Active Problem List Diagnosis Code ??? Morbid obesity (CMS/HCC) E66.01 ??? Mild intermittent asthma without complication [...] carpal tunnel syndrome of right wrist G56.01 documented in this encounter Miscellaneous Notes * Assessment & Plan Note - Az Allison MD - 03/30/2021 2:23 PM CDT Associated Problem(s): Mild intermittent asthma without complication He stopped using Symbicort about two months ago when he ran out. He could not afford the refills but says he does not feel he needs this inhaler at this time. He says the albuterol is working just fine. Today, lungs are clear and oxygen saturation is normal. * Assessment & Plan Note - Az Allison MD - 03/30/2021 2:21 PM CDT Associated Problem(s): LV dysfunction He has had some borderline LV systolic function on previous evaluations. He was complaining of someshortness of breath so we ordered a follow-up echo which shows normal LV systolic function. He alsohas some mild intermittent asthma. He now says that the previous symptoms have resolved. He no longer feels short of breath. We will continue current therapy. Follow-up in six months. * Assessment & Plan Note - Az Allison MD - 03/30/2021 2:21 PM CDT Associated Problem(s): Hypertension Blood pressure is in a good range on losartan. Continue same, and follow-up in six months. * Assessment & Plan Note - Az Allison MD - 03/30/2021 2:19 PM CDT Associated Problem(s): Mild carpal tunnel syndrome of right wrist He had bilateral CTS surgery about six [...] we can order additional testing or referral. * Assessment & Plan Note - Az Allison MD - 03/30/2021 2:18 PM CDT Associated Problem(s): Persistent mood disorder (CMS/HCC) He says his mood is good on Cymbalta. Continue same. documented in this encounter Plan of Treatment Not on file documented as of this encounter Visit Diagnoses Diagnosis Mild carpal tunnel syndrome of right wrist- Primary Essential hypertension Unspecified essential hypertension Persistent mood disorder (HCC) LV dysfunction Left heart failure Mild intermittent asthma without complication documented in this encounter Discontinued Medications Medication Sig Discontinue Reason Start Date End Da te budesonide-formoteroL (SYMBICORT) 160-4.5 mcg/actuation inhalerIndications:Bronc hospasm Prevention with COPD Inhale 2 puffs 2 (two) times a day Cost of medication 07/22/2020 01/22/2021 cyclobenzaprine (FLEXERIL) 10 mg tablet Take 1 tablet by mouth nightly Therapy completed 01/11/2021 03/24/2021 documented as of this encounter Historical Medications * This list may reflect changes made after this encounter. clindamycin (CLEOCIN) 300 mg capsule Take 1 capsule by mouth 3 (three) times a day as needed For dental infection 04/25/2020 added in this encounter Care Teams Darkroom Worker Relationship Specialty Start Date End Date Az Allison MD [address] [place] [id number] PCP - General 02/22/17 09/19/22 Pascale Wolff MD [address] [place] [id number] Consulting Physician Sleep Medicine 12/06/19 documented as of this encounter
--- OUTSIDE RECORDS SUMMARY | 2024-11-24 10:10 | XMS_ITS | Encounter Summary ---
Author Organization [facility] Facility Care Team Providers Care Brick Chimney Supervisor Name Role Phone Az Allison MD Primary Care Provider [phone] Encounter Details Date Type Department Care Team (Latest Contact Info) Description 11/13/2019 Travel Social History Tobacco Use Types Packs/Day Years Used Date Smoking Tobacco: Former Cigarettes 1 24 0 07/14/1990 - 06/25/2014 Smokeless Tobacco: Never Alcohol Use Standard Drinks/Week Comments No 0 (1 standard drink = 0.6 oz pur e alcohol) PHQ-2 Answer Date Recorded PHQ-2 Score 0 07/16/2019 Sex and Gender Information Value Date Recorded Sex Assigned at Not on file 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
--- OUTSIDE RECORDS SUMMARY | 2024-11-24 10:10 | XMS_ITS | Encounter Summary ---
Author Organization [facility] Address [address] [place] [address] Care Team Providers Care Executive Asst Name Role Phone Az Allison MD Primary Care Provider [phone] Pascale Wolff MD Unavailable Reason for Visit * Reason Comments Annual Exam Encounter Details Date Type Department Care Team (Late st Contact Info) Description 07/22/2020 2:40 PM CDT Office Visit [facility] [address] [place] [address] Az Allison MD [address] [place] [address] Mild persistent asthma without complication (Primary Dx); Annual visit for general adult medical examination with abnormal findings; Essential hypertension; Severe obstructive sleep apnea; Steatohepatitis, non-alcoholic; Non morbid obesity; Chronic coronary artery disease; Chronic midline low back pain without sciatica; Persistent mood disorder (CMS/HCC); Male erectile disorder Social History Tobacco Use Types Packs/Day Years [...] on file 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 Gender Identity Not on file Sexual Orientation Not on file documented as of this encounter Last Filed Vital Signs Vital Sign Reading Time Taken Comments Blood Pressure 126/78 07/22/2020 2:35 PM CDT Pulse 59 07/22/2020 2:35 PM CDT Temperature 36.2 ??C (97.1 ??F) 07/22/2020 2:35 PM CD T Respiratory Rate 20 07/22/2020 2:35 PM CDT Oxygen Saturation 97% 07/22/2020 2:35 PM CDT Inhaled Oxygen Concentration - - Weight 119.3 kg (263 lb) 07/22/2020 2:35 PM CDT Height 170.2 cm (5' 7 ) 07/22/2020 2:35 PM CDT Body Mass Index 41.19 07/22/2020 2:35 PM CDT documented in this encounter Patient Instructions * Patient Instructions* Az Allison MD - 07/22/2020 2:40 PM CDT Annual influenza vaccine is recommended for some time between July and February, typically given in mid-August. Keep preventive care up to date, see brochure. Continue current medications. Take Revatio as needed for ED. helpdesk technician will order labs (CMP, lipids) to be done at [facility]. Continue efforts to stay active and eat right. Try to lose a little weight. Follow up in 6 months, or sooner if needed. documented in this encounter Ordered Prescriptions Prescription Sig Dispense Quantity Refills Last Filled Start Date End Date sildenafiL, pulm.hypertension, (REVATIO) 20 mg tabletIndications: Erectile dysfunction. Take 1 tablet (20 mg total) by mouth daily as needed (Before sex) 60 tablet 3 07/22/2020 albuterol HFA (PROVENTIL HFA,VENTOLIN HFA,PROAIR HFA) 90 mcg/actuation inhalerIndications :Bronchospasm Prevention Inhale 2 puffs every 6 (six) hours as needed for wheezing 1 Inhaler 5 07/22/2020 budesonide-formote roL (SYMBICORT) 160-4.5 mcg/actuation inhalerIndications :Bronchospasm Prevention with COPD Inhale 2 puffs 2 (two) times a day 1 Inhaler 5 07/22/2020 1 losartan (COZAAR) 100 mg tabletIndications: Essential hypertension Take 1 tablet (100 mg total) by mouth daily 90 tablet 3 07/22/[address] (CYMBALTA) 60 mg capsuleIndications :Chronic midline low back pain without sciatica,Persisten t mood disorder (HCC) Take 1 capsule (60 mg total) by mouth daily 90 capsule 3 07/22/2020 1 documented in this encounter Progress Notes * Az Allison MD - 07/22/2020 2:40 PM CDT Problem List Items Addressed This Visit Nervous Low back pain (Chronic) His back is doing better. The duloxetine seems to be helping. He only has occasional mild pain at this time. Continue monitor. Relevant Medications DULoxetine DR (CYMBALTA) 60 mg capsule Respiratory Severe obstructive sleep apnea (Chronic) He went on CPAP and it has been life changing. He sleeping well. Energy level is good. Mild persistent asthma without complication - Primary (Chronic) He used to smoke, but quit a number of years ago. Lungs are clear and oxygen saturation is normal. Continue current inhalers. Relevant Medications albuterol HFA (PROVENTIL HFA,VENTOLIN HFA,PROAIR HFA) 90 mcg/actuation inhaler budesonide-formoteroL (SYMBICORT) 160-4.5 mcg/actuation inhaler Circulatory Essential hypertension (Chronic) Blood pressure is in a good range on current therapy. He is tolerating well. We are ordering follow-up labs and we will see him back in six months. Relevant Medications losartan (COZAAR) 100 mg tablet Other Relevant Orders Comprehensive metabolic panel Lipid panel Chronic coronary artery disease (Chronic) He has mild chronic coronary disease. He is on a baby aspirin. We will check follow-up lipids and discuss any needed treatment. Relevant Medications losartan (COZAAR) 100 mg tablet sildenafiL, pulm.hypertension, (REVATIO) 20 mg tablet Other Relevant Orders Comprehensive metabolic panel Lipid panel Digestive Steatohepatitis, non-alcoholic (Chronic) He has had some mild intermittent elevations of transaminases. Workup for other causes than fatty liver was negative. Follow-up labs are on order. Non morbid obesity (Chronic) He is quite overweight, essentially into the morbid obese category at this time. He finds it difficult to stay active because of COVID-19. He has cut out sodas and plans to lose some weight. We will check labs for metabolic effects of obesity, and see him back in six months. Relevant Orders Comprehensive metabolic panel Lipid panel Other Persistent mood disorder (CMS/HCC) (Chronic) Mood is good. Cymbalta is helping. Continue same. Relevant Medications DULoxetine DR (CYMBALTA) 60 mg capsule Male erectile disorder (Chronic) He has noted some increased difficulty achieving and maintaining erections. It has been going on for the past six months or so. We discussed options for evaluation and treatment. We are sending in some sildenafil for use as needed. Relevant Medications sildenafiL, pulm.hypertension, (REVATIO) 20 mg tablet Other Visit Diagnoses Annual visit for general adult medical examination with abnormal findings Preventive care reviewed. Relevant Orders Comprehensive metabolic panel Lipid panel Routine/Preventive Care: He says he will probably get his flu shot at work. HPI: The patient presents for annual evaluation of overall health and preventive care needs, as well as to assess and manage a number of chronic conditions as described. We plan to see him back in six months, or sooner if needed. Review of Systems Constitutional: Negative for fever. HENT: Negative for hearing loss and rhinorrhea. Eyes: Negative for photophobia, discharge and redness. Respiratory: Negative for shortness of breath and wheezing. Cardiovascular: Negative for chest pain. Gastrointestinal: Negative for abdominal pain, blood in stool, constipation and diarrhea. Endocrine: Obese. Genitourinary: Negative for dysuria and hematuria. Some ED recently, see HPI. Musculoskeletal: Positive for back pain (occasional mild stiffness). Negative for joint swelling. Skin: Negative for rash. Allergic/Immunologic: Negative for environmental allergies. Neurological: Negative for tremors. Hematological: Negative for adenopathy. Psychiatric/Behavioral: Negative for dysphoric mood. Current medication list reviewed and reconciled. See After Visit Summary for details. Allergies Allergen Reactions ??? Penicillins Rash Red itchy rash a day or two after starting it. ??? Hydrocodone-Acetaminophen Past Medical, Family and Social History: Pertinent details reviewed. Vitals: 07/22/20 1435 BP: 126/78 BP Location: Right arm Patient Position: Sitting Pulse: 59 Resp: 20 Temp: 36.2 ??C (97.1 ??F) SpO2: 97% Weight: 119.3 kg (263 lb) Height: 170.2 cm (5' 7 ) Physical Exam Constitutional: General: He is not in acute distress. Appearance: He is obese. HENT: Right Ear: Ear canal normal. Left Ear: There is impacted cerumen. Ears: Comments: Some scarring noted on right ear drum. Mouth/Throat: Pharynx: No oropharyngeal exudate. Eyes: General: No scleral icterus. Right eye: No discharge. Left eye: No discharge. Conjunctiva/sclera: Conjunctivae normal. Comments: No dysconjugate gaze or nystagmus. Neck: Thyroid: No thyromegaly. Vascular: No carotid bruit. Cardiovascular: Rate and Rhythm: Normal rate and regular rhythm. Pulses: Radial pulses are 2+ on the right side and 2+ on the left side. Dorsalis pedis pulses are 2+ on the right side and 2+ on the left side. Posterior tibial pulses are 2+ on the right side and 2+ on the left side. Heart sounds: Normal heart sounds. No murmur. No friction rub. No gallop. Comments: Carotid upstrokes not well felt due to neck size. But bruits. Pulmonary: Effort: Pulmonary effort is normal. No respiratory distress. Breath sounds: Normal breath sounds. No wheezing or rales. Abdominal: Palpations: Abdomen is soft. There is no mass. Tenderness: There is no abdominal tenderness. There is no guarding. Musculoskeletal: General: No tenderness. Comments: No joint warmth or swelling noted. [...] strength, coordination without observed lateralizing deficit. Psychiatric: Behavior: Behavior normal. Thought Content: Thought [...] ??? Severe obstructive sleep apnea G47.33 ??? Non-recurrent acute suppurative otitis media of right ear without spontaneous rupture of tympanic membrane H66.001 ??? Male erectile disorder N52.9 documented in this encounter Miscellaneous Notes * Assessment & Plan Note - Az Allison MD - 07/22/2020 3:16 PM CDT Associated Problem(s): Steatohepatitis, non-alcoholic He has had some mild intermittent elevations of transaminases. Workup for other causes than fatty liver was negative. Follow-up labs are on order. * Assessment & Plan Note - Az Allison MD - 07/22/2020 3:16 PM CDT Associated Problem(s): ERICH (obstructive sleep apnea) He went on CPAP and it has been life changing. He sleeping well. Energy level is good. * Assessment & Plan Note - Az Allison MD - 07/22/2020 3:16 PM CDT Associated Problem(s): Persistent mood disorder (CMS/HCC) Mood is good. Cymbalta is helping. Continue same. * Assessment & Plan Note - Az Allison MD - 07/22/2020 3:15 PM CDT Associated Problem(s): Morbid obesity (HCC) He is quite overweight, essentially into the morbid obese category at this time. He finds it difficult to stay active because of COVID-19. He has cut out sodas and plans to lose some weight. We will check labs for metabolic effects of obesity, and see him back in six months. * Assessment & Plan Note - Az Allison MD - 07/22/2020 3:15 PM CDT Associated Problem(s): Mild intermittent asthma without complication He used to smoke, but quit a number of years ago. Lungs are clear and oxygen saturation is normal. Continue current inhalers. * Assessment & Plan Note - Az Allison MD - 07/22/2020 3:14 PM CDT Associated Problem(s): Male erectile disorder He has noted some increased difficulty achieving and maintaining erections. It has been going on for the past six months or so. We discussed options for evaluation and treatment. We are sending in some sildenafil for use as needed. * Assessment & Plan Note - Az Allison MD - 07/22/2020 3:14 PM CDT Associated Problem(s): Low back pain His back is doing better. The duloxetine seems to be helping. He only has occasional mild pain at this time. Continue monitor. * Assessment & Plan Note - Az Allison MD - 07/22/2020 3:13 PM CDT Associated Problem(s): Hypertension Blood pressure is in a good range on current therapy. He is tolerating well. We are ordering follow-up labs and we will see him back in six months. * Assessment & Plan Note - Az Alilson MD - 07/22/2020 3:13 PM CDT Associated Problem(s): Coronary artery disease without angina pectoris He has mild chronic coronary disease. He is on a baby aspirin. We will check follow-up lipids and discuss any needed treatment. documented in this encounter Plan of Treatment Not on file documented as of this encounter Procedures Procedure Name Priority Date/Time Associated Diagnosis Comments LIPID PANEL Routine 08/15/2020 7:40 AM CDT Annual visit for general adult medical examination with abnormal findings Essential hypertension Non morbid obesity Chronic coronary artery disease COMPREHENSIVE METABOLIC PANEL Routine 08/15/2020 7:40 AM CDT Annual visit for general adult medical examination with abnormal findings Essential hypertension Non morbid obesity Chronic coronary artery disease documented in this encounter Results * (ABNORMAL) Lipid panel (08/15/2020 7:40 AM CDT) Cholesterol 191 <200 mg/dL [facility] HDL 38(L) > OR = 40 mg/dL [facility] Triglycerides 241(H) <150 mg/dL [facility] Comment: If a non-fasting specimen was collected, consider repeat triglyceride testing on a fasting specimen if clinically indicated. Yunier et al. J. of Clin. Lipidol. 2015;9:129-169. LDL 116(H) mg/dL (calc) [facility] Comment: Reference range: <100 Desirable range <100 mg/dL for primary prevention; ?? <70 mg/dL for patients with CHD or diabetic patients with > or = 2 CHD risk factors. LDL-C is now calculated using the Ronnie-Elizalde calculation, which is a validated novel method providing better accuracy than the Friedewald equation in the estimation of LDL-C. Ronnie MONTES et al. NEGAR. 2013;310(19): 4561-3927 (http://education.Novonics/faq/ZAA419) Chol/HDL ratio 5.0(H) <5.0 (calc) [facility] Non-HDL, (LDL+VLDL) 153(H) <130 mg/dL (calc) [facility] Comment: For patients with diabetes plus 1 major ASCVD risk factor, treating to a non-HDL-C goal of <100 mg/dL (LDL-C of <70 mg/dL) is considered a therapeutic option. Blood specimen (specimen) 08/15/2020 7:40 AM CDT 08/15/2020 7:40 AM CDT us Az Allison MD LAB BLOOD ORDERABLES Final Re sult [id number] [id number] [place] [address] * (ABNORMAL) Comprehensive metabolic panel (08/15/2020 7:40 AM CDT) Pathologist [facility] Glucose 118(H) 65 - 99 mg/dL [facility] Comment: ? Fasting reference interval For someone without known diabetes, a glucose value between 100 and 125 mg/dL is consistent with prediabetes and should be confirmed with a follow-up test. BUN 18 7 - 25 mg/dL [facility] Creatinine 1.11 0.60 - 1.35 mg/dL [facility] eGFR NON-AFR. DUTCH 78 > OR = 60 mL/min/1. 73m2 [facility] EGFR 91 > OR = 60 mL/min/1. 73m2 [facility] BUN/creat ratio NOT APPLICABLE 6 - 22 (calc) [facility] Sodium 138 135 - 146 mmol/L [facility] Potassium, pl 4.7 3.5 - 5.3 mmol/L [facility] Chloride 102 98 - 110 mmol/L [facility] CO2 28 20 - 32 mmol/L [facility] Calcium 9.7 8.6 - 10.3 mg/dL [facility] Protein, sr 6.8 6.1 - 8.1 g/dL [facility] Albumin 4.3 3.6 - 5.1 g/dL [facility] GLOBULIN 2.5 1.9 - 3.7 g/dL (calc) [facility] Alb/glob ratio 1.7 1.0 - 2.5 (calc) [facility] Bilirubin, total 0.3 0.2 - 1.2 mg/dL [facility] Alk phos 59 36 - 130 U/L [facility] AST 28 10 - 40 U/L [facility] ALT (SGPT) 50(H) 9 - 46 U/L [facility] Blood specimen (specimen) 08/15/2020 7:40 AM CDT 08/15/2020 7:40 AM CDT Az Allison MD LAB BLOOD ORDERABLES Final Re sult [facility] [address] [place] [address] documented in this encounter Visit Diagnoses Diagnosis Mild persistent asthma without complication- Primary Annual visit for general adult medical examination with abnormal findings Essential hypertension Unspecified essential hypertension Severe obstructive sleep apnea Steatohepatitis, non-alcoholic Non morbid obesity Chronic coronary artery disease Coronary atherosclerosis of unspecified type of vessel, kletsel dehe wintun or graft Chronic midline low back pain without sciatica Persistent mood disorder (HCC) Male erectile disorder Impotence of organic origin documented in this encounter Discontinued Medications Medication Sig Discontinue Reason Start Date End Da te guaiFENesin-codeine (GUAITUSS AC) liquid 100-10 mg/5 mLIndications:Community acquired pneumonia of right lower lobe of lung Take 5 mL by mouth 3 (three) times a day as needed for cough Therapy completed 10/14/2019 10/31/[address] (CYMBALTA) 60 mg capsuleIndications:Curriculum Specialist sunny midline low back pain without sciatica,Persistent mood disorder (HCC) TAKE 1 CAPSULE (60 MG TOTAL) BY MOUTH DAILY. Reorder 06/30/2020 07/22/2020 losartan (COZAAR) 100 mg tabletIndications:Essen tial hypertension TAKE 1 TABLET (100 MG TOTAL) BY MOUTH DAILY Reorder 04/20/2020 07/22/2020 albuterol HFA (PROVENTIL HFA,VENTOLIN HFA) 90 mcg/actuation inhaler Inhale 2 puffs every 6 (six) hours as needed. Reorder 07/22/2020 budesonide-formoterol (SYMBICORT) 160-4.5 mcg/actuation inhaler Inhale 2 puffs 2 (two) times a day. Rinse mouth with water after use to reduce aftertaste and incidence of candidiasis. Do not swallow. Sample provided. Reorder 07/22/2020 documented as of this encounter Care Teams Executive Asst Relationship Specialty Start Date End Date Az Allison MD [address] [address] PCP - General 02/22/17 09/19/22 Pascale Wolff MD [address] [place] [address] Consulting Physician Sleep Medicine 12/06/19 documented as of this encounter
--- OUTSIDE RECORDS SUMMARY | 2024-11-24 10:10 | XMS_ITS | Encounter Summary ---
Author Organization [facility] Address [address] [place] [address] Care Team Providers Care Environmental Protection Specialist Name Role Phone Az Allison MD Primary Care Provider [phone] Reason for Visit * Reason Comments Office Procedure Removal scrotal lesi ons Encounter Details Date Type Department Care Team (Late st Contact Info) Description 12/01/2019 11:40 AM PASSENGER TIRE INSPECTOR Procedure visit [facility] [address] [place] [id number] Bowen Silva MD [address] [place] [address] [address] [place] [address] Verruca vulgaris (Primary Dx) Social History Tobacco Use Types [...] file 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 Gender Identity Not on file Sexual Orientation Not on file documented as of this encounter Last Filed Vital Signs Vital Sign Reading Time Taken Comments Blood Pressure 130/70 12/01/2019 3:52 PM PASSENGER TIRE INSPECTOR Pulse 56 12/01/2019 3:52 PM PASSENGER TIRE INSPECTOR Temperature - - Respiratory Rate - - Oxygen Saturation - - Inhaled Oxygen Concentration - - Weight 116 kg (255 lb 11.2 oz) 12/01/2019 3:52 P M PASSENGER TIRE INSPECTOR Height 170.2 cm (5' 7 ) 12/01/2019 3:52 PM PASSENGER TIRE INSPECTOR Body Mass Index 40.05 12/01/2019 3:52 PM PASSENGER TIRE INSPECTOR documented in this encounter Progress Notes * Bowen Silva MD - 12/01/2019 11:40 AM CST Progress Note Subjective: HPI: No complaints since last being seen for excision of the scrotal lesions. Objective: Vitals BP 130/70 (BP Location: Right arm, Patient Position: Sitting) Pulse 56 Ht 170.2 cm (5' 7 ) Wt 116 kg (255 lb 11.2 oz) BMI 40.05 kg/m?? Physical Exam Genitourinary: Spine a few residual skin tags are present along the scrotum. Assessment/Plan Diagnoses and all orders for this visit: Verruca vulgaris (Primary) Assessment & Plan: I will set the patient up for the removal of the last remaining skin lesions. Bowen Silva MD 3:55 PM 12/01/2019 ENGER TIRE INSPECTOR * Bowen Silva MD - 12/01/2019 11:40 AM CST Patient ID: Javier Sanchez 49 y.o. male 12/01/19 Surgeon: Cedrick Silva MD Pre operative Diagnosis: Verruca vulgaris Post operative Diagnosis: Same Procedure: Excision of 14 scrotal skin tags Local: 1% lidocaine injection Specimen: None EBL: 5 cc Description of procedure: The scrotum was prepped and draped in standard sterile fashion. Local anesthetic was used to raise a skin wheal but need each lesion. The lesions were then grasped and amputated at their base with a 15 blade scalpel. Roughly 14 lesions were removed in total. Bacitracin was then applied and cover with a fluff gauze. The patient tolerated the procedure. ENGER TIRE INSPECTOR documented in this encounter Miscellaneous Notes * Assessment & Plan Note - Bowen Silva MD - 12/01/2019 3:54 PM CSTAssociated Problem(s): Verruca vulgaris I will set the patient up for the removal of the last remaining skin lesions. ENGER TIRE INSPECTOR documented in this encounter Plan of Treatment Not on file documented as of this encounter Visit Diagnoses Diagnosis Verruca vulgaris- Primary Viral warts, unspecified documented in this encounter Care Teams Environmental Protection Specialist Relationship Specialty Start Date End Date Az Allison MD [address] [place] [address] PCP - General 02/22/17 09/19/22 documented as of this encounter
--- OUTSIDE RECORDS SUMMARY | 2024-11-24 10:10 | XMS_ITS | Encounter Summary ---
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 He would like Rx sent there. [place] REGULATORY AFFAIRS MANAGER documented in this encounter Plan of Treatment Not on file documented as of this encounter Visit Diagnoses Not on filedocumented in this encounter Care Teams Weaving Machine Operator Relationship Specialty Start Date End Date Az Allison MD [address] [place] [address] PCP - General 02/22/17 09/19/22 documented as of this encounter
--- OUTSIDE RECORDS SUMMARY | 2024-11-24 10:10 | XMS_ITS | Encounter Summary ---
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 No / Unsure 02/04/2020 1:19 PM CDT documented as of this encounter Plan of Treatment Not on file documented as of this encounter Visit Diagnoses Not on filedocumented in this encounter Care Teams Bingo Floater Relationship Specialty Start Date End Date Az Allison MD [address] [place] [address] PCP - General 02/22/17 09/19/22 Pascale Wolff MD [address] [place] [address] Consulting Physician Sleep Medicine 12/06/19 documented as of this encounter
--- OUTSIDE RECORDS SUMMARY | 2024-11-24 10:10 | XMS_ITS | Encounter Summary ---
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
--- OUTSIDE RECORDS SUMMARY | 2024-11-24 10:10 | XMS_ITS | Encounter Summary ---
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 He knows to do low saturated fat/low carb diet. He doesn't want referral to director of maintenance at this time. He voices understanding et will follow up as planned in January 2021. * Telephone Encounter - Az Allison MD - 08/16/2020 9:27 AM CDT Please call patient. Recent results show the following: Lab Results Component Value Date GLUCOSE 118 (H) 08/15/2020 CALCIUM 9.7 08/15/2020 SODIUM 138 08/15/2020 POTASSIUM 4.7 08/15/2020 CO2 28 08/15/2020 CHLORIDE 102 08/15/2020 BUNSER 18 08/15/2020 CREATININE 1.11 08/15/2020 Lab Results Component Value Date ALBUMIN 4.3 08/15/2020 Lab Results Component Value Date ALT 50 (H) 08/15/2020 AST 28 08/15/2020 ALKPHOS 59 08/15/2020 BILITOT 0.3 08/15/2020 Lab Results Component Value Date CHOL 191 [...] 222 (H) 07/21/2019 TRIG 177 (H) 10/22/2018 Labs generally reflect his diet and weight. He is at risk for developing diabetes. There is mild elevation of one liver enzyme indicating ongoing inflammation in the liver from fatty change. This could eventually lead to cirrhosis and a risk of liver cancer. Recommend he continue efforts at life-sty le change, especially low saturated fat/low carbohydrate diet and weight loss. If he has questions,or wants a referral to a director of maintenance, let me know. documented in this encounter Plan of Treatment Not on file documented as of this encounter Visit Diagnoses Not on filedocumented in this encounter Care Teams Digital Account Executive Relationship Specialty Start Date End Date Az Allison MD [address] [id number] PCP - General 02/22/17 09/19/22 Pascale Wolff MD [address] [address] Consulting Physician Sleep Medicine 12/06/19 documented as of this encounter
--- OUTSIDE RECORDS SUMMARY | 2024-11-24 10:10 | XMS_ITS | Encounter Summary ---
Author Organization [facility] Address [address] [place] [address] Care Team Providers Care Alum Operator Name Role Phone Az Allison MD Primary Care Provider [phone] Reason for Referral * Sleep Medicine (Routine) - Closed Specialty Diagnoses / Procedures Referred By Monster blackwell Referred To Contact Diagnoses Sleep apnea, unspecified type Sleep disorder, unspecified Other fatigue Procedures Portable/Home Sleep Study Az Allison MD Phone: tel: fax: [address] [phone] Referral ID Status Reason Start Date Expiration Date Visits Re quested Visits Authorized [id number] Closed 10/28/2019 01/25/2020 1 1 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 Reason for Visit * Sleep Medicine (Routine) - Closed Specialty Diagnoses / Procedures Referred By Monster blackwell Referred To Contact Diagnoses Sleep apnea, unspecified type Sleep disorder, unspecified Other fatigue Procedures Portable/Home Sleep Study Az Allison MD Phone: tel: fax: [address] [phone] Referral ID Status Reason Start Date Expiration Date Visits Re quested Visits Authorized [id number] Closed 10/28/2019 01/25/2020 1 1 Encounter Details Date Type Department Care Team (Late st Contact Info) Description 11/19/2019 3:00 PM MIDD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 - 11/19/2019 11:59 PM MIDD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 Hospital Encounter [facility] [address] [place] [address] Az Allison MD [address] [place] [address] Sleep apnea, unspecified type; Sleep disorder, unspecified; Other fatigue Discharge Disposition: Discharge to home or self [...] on file 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 multivitamin (MULTIPLE VITAMINS) tablet tablet take 1 by Oral route daily 0 0 09/06/2016 albuterol HFA (PROVENTIL HFA,VENTOLIN HFA) 90 mcg/actuation inhaler Inhale 2 puffs every 6 (six) hours as needed. 0 budesonide-formote rol (SYMBICORT) 160-4.5 mcg/actuation inhaler Inhale 2 puffs 2 (two) times a day. Rinse mouth with water after use to reduce aftertaste and incidence of candidiasis. Do not swallow. Sample provided. [address] (CYMBALTA) 60 mg capsuleIndications :Chronic midline low back pain without sciatica,Persisten t mood disorder (HCC) TAKE 1 CAPSULE (60 MG TOTAL) BY MOUTH DAILY. 90 capsule 1 10/07/2019 0 losartan (COZAAR) 100 mg tabletIndications: Essential hypertension Take 1 tablet (100 mg total) by mouth daily 90 tablet 3 07/17/2019 0 documented as of this encounter Discharge Disposition Disposition Code Departure Means Destination Discharge to home or self care documented in this encounter Progress Notes * Wolff, Ajitesh, MD - 11/19/2019 3:00 PM CST Indication for study: Mr. Sanchez is a 49-year-old gentleman with chief complaints of loud snoring, restless sleep and daytime fatigue. Past medical history: Hypertension Procedure: The patient underwent a single night diagnostic study utilizing unattended FDA approved ResMed apnea link home air portable monitoring device investigating for obstructive sleep apnea. Thepatient was provided instruction of the device and application by the registered tissue technologist at the [facility]. The study included channels of heart rate, body position, respiratory effort, respiratory airflow, snoring and oxygen saturation analysis. The study was a analyzed by the tissue technologist and the raw data was reviewed by the board certified sleep physician. Description of polysomnography findings: The patient had 8 hours and 44 minutes of monitored time. 8 hours and 31 minutes of flow evaluation was present. 8 hours and 27 minutes of oxygen saturation analysis was present. The apnea-hypopnea index was 42.3. The AHI was 72.3 in supine position, and 8.5 in the nonsupine position. There were 312 obstructive apneas and 48 hypopneas scored. Baseline oxygen saturation 97%. Lowest oxygen saturation was 81%. Average oxygen saturation 97%. The oxygen desaturation index was 38.8. There were 328 oxygen desaturation episodes recorded. Pulse evaluation revealed maximum 93 beats per minute, minimum 40 beats per minute and average of 47 beats per minute. Impression: 1. Severe obstructive sleep apnea syndrome 2. [...] continued 6. 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 documented in this encounter Plan of Treatment Scheduled Orders Name Type Priority Associated Diagnoses Orde r Schedule Portable/Home Sleep Study Sleep Center Routine Sleep apnea, unspecified type Sleep disorder, unspecified Other fatigue Once for 1 Occurrences starting 11/16/2019 until 11/16/2019 documented as of this encounter Visit Diagnoses Diagnosis Sleep apnea, unspecified type Sleep disorder, unspecified Other fatigue documented in this encounter Care Teams Alum Operator Relationship Specialty Start Date End Date Az Allison MD [address] [place] [address] PCP - General 02/22/17 09/19/22 documented as of this encounter
--- OUTSIDE RECORDS SUMMARY | 2024-11-24 10:10 | XMS_ITS | Encounter Summary ---
Author Organization [facility] Address [address] [place] [address] Care Team Providers Care Hot Dog Vendor Name Role Phone Az Allison MD Primary Care Provider [phone] Pascale Wolff MD Unavailable Reason for Visit * Reason Comments Cough Encounter Details Date Type Department Care Team (Late st Contact Info) Description 02/04/2020 2:20 PM CDT Office Visit [facility] [address] [place] [address] Az Allison MD [address] [address] Non-recurrent acute suppurative otitis media of right ear without spontaneous rupture of tympanic membrane (Primary Dx) Social History Tobacco Use Types [...] on file 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 No / Unsure 02/04/2020 1:19 PM CDT documented as of this encounter Last Filed Vital Signs Vital Sign Reading Time Taken Comments Blood Pressure 132/70 02/04/2020 2:19 PM CDT Pulse 58 02/04/2020 2:19 PM CDT Temperature 36.9 ??C (98.4 ??F) 02/04/2020 2:19 PM CD T Respiratory Rate 18 02/04/2020 2:19 PM CDT Oxygen Saturation 97% 02/04/2020 2:19 PM CDT Inhaled Oxygen Concentration - - Weight 118.4 kg (261 lb) 02/04/2020 2:19 PM CDT Height 170.2 cm (5' 7 ) 02/04/2020 2:19 PM CDT Body Mass Index 40.88 02/04/2020 2:19 PM CDT documented in this encounter Patient Instructions * Patient Instructions* Az Allison MD - 02/04/2020 2:20 PM CDT Start doxycycline for infection of right ear and cough. OK to take some of your cough medicine as needed. If not improving, follow up next week in the office. documented in this encounter Ordered Prescriptions Prescription Sig Dispense Quantity Refills Last Filled Start Date End Date doxycycline monohydrate (MONODOX) 100 mg capsuleIndications :Non-recurrent acute suppurative otitis media of right ear without spontaneous rupture of tympanic membrane Take 1 capsule (100 mg total) by mouth 2 (two) times a day for 7 days 14 capsule 02/04/2020 0 documented in this encounter Progress Notes * Az Allison MD - 02/04/2020 2:20 PM CDT Problem List Items Addressed This Visit Nervous Non-recurrent acute suppurative otitis media of right ear without spontaneous rupture of tympanic membrane - Primary He came down with a respiratory infection on Saturday. He had cough productive of clear phlegm, runnynose, and a headache. No sinus pain or [...] early next week if not getting better. Relevant Medications doxycycline monohydrate (MONODOX) 100 mg capsule Routine/Preventive Care: He did have this year's flu shot. HPI: The patient presents for evaluation and management of a respiratory infection as described above, consisting mostly of sore throat, right ear pain and congestion, and a cough. He thinks he has been running a fever. Temperature in the office is normal and other vital signs are stable. We are putting him on some doxycycline and plan to see him back early next week if not improving. Review of Systems Constitutional: Positive for fever. HENT: Positive for congestion (Nasal and right ear), ear pain ( right ear feels blocked and uncomfortable) and sore throat. Negative for sinus pressure and sinus pain. Respiratory: Positive for cough ( clear phlegm). Negative for wheezing (Has not noted any worseningof his wheezing, in fact is wheeze free so far). Cardiovascular: Negative for chest pain and leg swelling. Gastrointestinal: Negative for abdominal pain and diarrhea. Endocrine: Moderately obese, but very muscular. Genitourinary: No urinary symptoms reported. Skin: Negative for rash. Neurological: Positive for headaches. Hematological: Negative for adenopathy. Current medication list reviewed and reconciled. See After Visit Summary for details. Allergies Allergen Reactions ??? Penicillins Rash Red itchy rash a day or two after starting it. ??? Hydrocodone-Acetaminophen Past Medical, Family and Social History: Pertinent details reviewed. Vitals: 02/04/20 1419 BP: 132/70 BP Location: Right arm Patient Position: Sitting Pulse: 58 Resp: 18 Temp: 36.9 ??C (98.4 ??F) SpO2: 97% Weight: 118.4 kg (261 lb) Height: 170.2 cm (5' 7 ) Physical Exam Constitutional: General: He is not in acute distress. Appearance: He is obese. HENT: Right Ear: Ear canal normal. Left Ear: Tympanic membrane and ear canal normal. Ears: Comments: Moderate right TM erythema, bulging, probable purulent otitis media. No perforation. Mouth/Throat: Mouth: Mucous membranes are moist. Pharynx: Oropharynx is clear. No oropharyngeal exudate or posterior oropharyngeal erythema. Eyes: General: No scleral icterus. Right eye: No discharge. Left eye: No discharge. Conjunctiva/sclera: Conjunctivae normal. Pupils: Pupils are equal, round, and reactive to light. Comments: No dysconjugate gaze or nystagmus. Neck: Thyroid: No thyromegaly. Vascular: No carotid bruit. Cardiovascular: Rate and Rhythm: Normal rate and regular rhythm. Heart sounds: Normal heart sounds. No murmur. No friction rub. No gallop. Pulmonary: Effort: Pulmonary effort is normal. No respiratory distress. Breath sounds: Normal breath sounds. No wheezing or rales. Abdominal: Palpations: Abdomen is soft. Tenderness: There is no abdominal tenderness. There is no guarding. Musculoskeletal: General: No swelling or tenderness. Comments: No joint warmth or swelling [...] Content: Thought content normal. Labs/Imaging/Other: Nothing new ordered. Patient Active Problem List Diagnosis Code ??? [...] without spontaneous rupture of tympanic membrane H66.001 documented in this encounter Miscellaneous Notes * Assessment & Plan Note - Az Allison MD - 02/04/2020 3:21 PM CDT Associated Problem(s): Non-recurrent acute suppurative otitis media of right ear without spontaneous rupture of tympanic membrane (Resolved 10/03/2020) He came down with a respiratory infection on Saturday. He had cough productive of clear phlegm, runnynose, and a headache. No sinus pain or [...] early next week if not getting better. documented in this encounter Plan of Treatment Not on file documented as of this encounter Visit Diagnoses Diagnosis Non-recurrent acute suppurative otitis media of right ear without spontaneous rupture of tympanic membrane- Primary documented in this encounter Care Teams Hot Dog Vendor Relationship Specialty Start Date End Date Az Allison MD [address] [id number] PCP - General 02/22/17 09/19/22 Pascale Wolff MD [address] [address] Consulting Physician Sleep Medicine 12/06/19 documented as of this encounter
--- OUTSIDE RECORDS SUMMARY | 2024-11-24 10:10 | XMS_ITS | Encounter Summary ---
Author Organization [facility] Address [address] [place] [address] Care Team Providers Care Household Appliances Service Technician Name Role Phone Az Allison MD Primary Care Provider [phone] Pascale Wolff MD Unavailable Encounter Details Date Type Department Care Team (Late st Contact Info) Description 02/04/2020 1:15 PM CDT Office Visit [facility] 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 No / Unsure 02/04/2020 12:54 PM CDT documented as of this encounter Last Filed Vital Signs Vital Sign Reading Time Taken Comments Blood Pressure 129/70 02/04/2020 12:59 PM CDT Pulse 55 02/04/2020 12:59 PM CDT Temperature - - Respiratory Rate - - Oxygen Saturation - - Inhaled Oxygen Concentration - - Weight 118.4 kg (261 lb) 02/04/2020 12:59 PM CDT Height 170.2 cm (5' 7 ) 02/04/2020 12:59 PM CDT Body Mass Index 40.88 02/04/2020 12:59 PM CDT documented in this encounter Progress Notes * Pascale Wolff MD - 02/04/2020 1:15 PM CDT HPI 1. Severe obstructive sleep apnea syndrome: Mr. Sanchez presents for follow-up. He is a very pleasant 49-year-old gentleman with severe obstructive sleep apnea syndrome. Following his initial visit was set up with automatic positive therapy 8-16 cm. He reports that he goes to bed between 9 9:30 p.m. And awakens at 4:00 a.m. On his weekdays. On his days off he goes to bed between 10 and 11:00 p.m., awakens between 6 and 7:00 a.m.. Awakens with a perception of refreshing sleep does struggle with initial low pressure initiation. 2. Hypersomnia with sleep apnea: Reports considerable improvement in perception of sleep in the daytime. Kaycee Sleepiness Scale score is 0. 3. Morbid obesity: Stable weight since last visit. Review of Systems BP 129/70 Pulse 55 Ht 170.2 cm (5' 7 ) Wt 118.4 kg (261 lb) BMI 40.88 kg/m?? Physical Exam Constitutional: Obese gentleman in no distress HENT: Head: Normocephalic and atraumatic. [...] Psychiatric: normal mood and affect. Judgment normal. AP 1. Obstructive sleep apnea syndrome: Patient reports compliance with positive pressure therapy compliance download reveals compliant and effective therapy. Median pressure is 11.2 cm recommend changing automatic positive ranges to 11-16 cm . The physiology of sleep disordered breathing and its increased association with hypertension, diabetes, heart arrhythmia, strokes, heart attacks, heart failure, hypersomnia, obesity and mood disorders was discussed. Verbalizes understanding. -compliance data: Compliance download reveals 100% usage average usage 8 hours and 23 minutes. Residual AHI 2.5. Maximum pressure 15.6 cm. 2. Hypersomnia with sleep apnea: Improved post therapy. 3. Morbid obesity: Stable weight since last visit. The effects of obesity obstructive sleep apnea syndrome and other morbidities was discussed. Recommended diet and exercise in losing weight. Patientverbalizes an understanding. documented in this encounter Plan of Treatment Not on file documented as of this encounter Visit Diagnoses Diagnosis Severe obstructive sleep apnea- Primary Hypersomnia with sleep apnea Hypersomnia with sleep apnea, unspecified Morbid obesity with BMI of 40.0-44.9, adult (HCC) documented in this encounter Care Teams Household Appliances Service Technician Relationship Specialty Start Date End Date Az Allison MD [address] [place] [address] PCP - General 02/22/17 09/19/22 Pascale Wolff MD [address] [place] [address] Consulting Physician Sleep Medicine 12/06/19 documented as of this encounter
--- OUTSIDE RECORDS SUMMARY | 2024-11-24 10:10 | XMS_ITS | Encounter Summary ---
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 No / Unsure 02/04/2020 1:19 PM CDT documented as of this encounter Miscellaneous Notes * Telephone Encounter - Az Allison MD - 02/18/2020 3:22 PM CDT Noted, thank you. * Telephone Encounter - Chuyita Hyman RN - 02/18/2020 2:39 PM CDT TOES:pt feels great no further symptoms * Telephone Encounter - Traci Dooley NP - 02/18/2020 1:58 PM CDT Patient called no answer message left to call and let us know how he is feeling. * Telephone Encounter - Az Allison MD - 02/18/2020 1:56 PM CDT Please call patient. Did he get over his ear infection and cough? documented in this encounter Plan of Treatment Not on file documented as of this encounter Visit Diagnoses Not on filedocumented in this encounter Care Teams Shell Coremaker Relationship Specialty Start Date End Date Az Allison MD [address] [address] PCP - General 02/22/17 09/19/22 Pascale Wolff MD [address] [address] Consulting Physician Sleep Medicine 12/06/19 documented as of this encounter
--- OUTSIDE RECORDS SUMMARY | 2024-11-24 10:10 | XMS_ITS | Encounter Summary ---
Author Organization [facility] Address [address] [place] [address] Care Team Providers Care Automation Manager Name Role Phone Az [place] MD Primary Care Provider [phone] Pascale Wolff MD Unavailable Reason for Visit * Reason Comments Follow-up Encounter Details Date Type Department Care Team (Late st Contact Info) Description 09/05/2020 2:15 PM CDT Office Visit [facility] [address] [facility] [address] [place] [address] Pascale Wolff MD [address] [place] [address] [address] [place] [address] ERICH (obstructive sleep apnea) (Primary Dx); Hypersomnia with sleep apnea; Morbid obesity with BMI of 40.0-44.9, adult (CMS/FORMERLY [facility]) Social History Tobacco Use Types Packs/Day Years [...] on file 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 Severe obstructive sleep apnea syndrome: Mr. Sanchez presents for follow-up. He is a very pleasant 49-year-old gentleman with severe obstructive sleep apnea syndrome. Following his last visit he has his automatic positive pressure ranges change to 11-16 cm. Endorses compliance with therapy. He reports that he goes to bed between 9 9:30 p.m. And awakens at 4:00 a.m. On his weekdays. On his days off he goes to bed between 10 and 11:00 p.m., awakens between 6 and 7:00 a.m.. Patient reports that hewas feeling really good upon awakening with perception restful sleep hours for the past few weeks he has noticed perception of a lack of restful sleep occasionally. 2. Hypersomnia with sleep apnea: Endorses an [place] Sleepiness Scale score of 2. 3. Morbid obesity: Stable weight since last visit. Review of Systems Ht 170.2 cm (5' 7 ) Wt 118.8 kg (262 lb) BMI 41.04 kg/m?? Physical Exam Constitutional: Obese gentleman in [...] normal. AP 1. Obstructive sleep apnea syndrome: Endorses compliance with positive pressure therapy. Compliancedownload reveals compliant and effective therapy however recent perception lack of restful sleep. Recommend changing of the automatic positive ranges to 11-18 cm. Monitor response to the above. The patient's subjective symptoms continues to be of un restful sleep, consider a titration study to assess. -compliance data: Compliance download reveals 100% usage. Average usage 8 hours and 11 minutes. Residual AHI 0.7. Maximum pressure 15.8 cm. 2. Hypersomnia with sleep apnea: Continue to monitor. Stable. 3. Morbid obesity: Stable weight since last visit. The effects of obesity obstructive sleep apnea syndrome and other morbidities was discussed. Recommended diet and exercise in losing weight. Patientverbalizes an understanding. documented in this encounter Plan of Treatment Not on file documented as of this encounter Visit Diagnoses Diagnosis ERICH (obstructive sleep apnea)- Primary Obstructive sleep apnea (adult) (pediatric) Hypersomnia with sleep apnea Hypersomnia with sleep apnea, unspecified Morbid obesity with BMI of 40.0-44.9, adult (HCC) documented in this encounter Care Teams Automation Manager Relationship Specialty Start Date End Date Az [place] MD [address] [place] [address] PCP - General 02/22/17 09/19/22 Pascale Wolff MD [address] [place] [address] Consulting Physician Sleep Medicine 12/06/19 documented as of this encounter
--- OUTSIDE RECORDS SUMMARY | 2024-11-24 10:10 | XMS_ITS | Encounter Summary ---
Author Organization [facility] Address [address] [place] [address] Care Team Providers Care Supervisor Sleeping Bag Department Name Role Phone Az [place] MD Primary Care Provider [phone] Pascale Wolff MD Unavailable Encounter Details Date Type Department Care Team (Late st Contact Info) Description 12/07/2019 Orders Only [facility] [address] [facility] [address] [place] [address] Pascale Wolff MD [address] [place] [address] [address] [facility] [address] [place], [place] [id number] Social History Tobacco Use Types Packs/Day Years [...] on file 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
--- OUTSIDE RECORDS SUMMARY | 2024-11-24 10:10 | XMS_ITS | Encounter Summary ---
Author Organization [facility] Address [address] [place] [address] Care Team Providers Care Gastroenterology Teacher Name Role Phone Az [place] MD Primary Care Provider [phone] Reason for Visit * Reason Comments Sleeping Problem New * Consultation (Routine) - Canceled Specialty Diagnoses / Procedures Referred By Monster blackwell Referred To Contact Sleep Medicine Diagnoses Severe obstructive sleep apnea Az [place] MD Phone: tel: fax: Pascale Wolff MD [address] [place] [address] DR GINO Kincaid [address] [address] Phone: tel: fax: Referral ID Status Reason Start Date Expiration Date Visits Requested Visits Authorized [id number] Canceled Specialty Services Required 11/30/2019 06/10/2021 12 12 Encounter Details Date Type Department Care Team (Late st Contact Info) Description 12/01/2019 1:15 PM DISTRIBUTION COORDINATOR Office Visit [facility] [address] [facility] [address] [place] [phone] Pascale Wolff MD [address] [place] [address] DR GINO Kincaid [facility] [address] [place] [address] Severe obstructive sleep apnea (Primary Dx); Hypersomnia with sleep apnea; Severe obesity (BMI 35.0-35.9 with comorbidity) (CMS/FORMERLY [facility]) Social History Tobacco Use Types Packs/Day Years [...] on file 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 Sex Male 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 Gender Identity Not on file Sexual Orientation Not on file documented as of this encounter Last Filed Vital Signs Vital Sign Reading Time Taken Comments Blood Pressure 120/73 12/01/2019 1:15 PM DISTRIBUTION COORDINATOR Pulse 56 12/01/2019 1:15 PM DISTRIBUTION COORDINATOR Temperature - - Respiratory Rate - - Oxygen Saturation - - Inhaled Oxygen Concentration - - Weight 115.7 kg (255 lb) 12/01/2019 1:15 PM DISTRIBUTION COORDINATOR Height 170.2 cm (5' 7 ) 12/01/2019 1:15 PM DISTRIBUTION COORDINATOR Body Mass Index 39.94 12/01/2019 1:15 PM DISTRIBUTION COORDINATOR documented in this encounter Progress Notes * Pascale Wolff MD - 12/01/2019 1:15 PM CST Chief complaints: Snoring, unrefereshing sleep and hypersomnia HPI Mr. Sanchez presents for consultation. He has been requested be seen in consult by his primary care physician Dr. [place]. He is a very pleasant 49-year-old gentleman reports that he goes to bed between9 9:30 p.m. And awakens at 4:00 a.m. On his weekdays. On his days off he goes to bed between 10 and11:00 p.m., awakens between 6 and 7:00 a.m.. Endorses symptoms of loud snoring, restless sleep. Denies witnessed stoppage with while sleeping, awakening gasping for air, talking sleep, walking sleep,creepy crawly feeling legs, leg jerks, nighttime wheezing and vivid dreams awakens 2-3 times, occasionally go to the restroom. Falls asleep within matter of 10 minutes awakens with a perception unrefreshing sleep. Feels fatigued and tired in the daytime. [place] Sleepiness Scale score is 2. Does take daytime naps these naps can last for 1-2 hours. He finds these naps to be refreshing he does dream during these naps. Recently had a sleep study undertaken Review of Systems Constitutional: Positive for fatigue. HENT: Negative. Eyes: Negative. Respiratory: Negative. Cardiovascular: Negative. Gastrointestinal: Negative. Endocrine: Negative. Genitourinary: Negative. Musculoskeletal: Positive for back pain. Skin: Negative. Allergic/Immunologic: Negative. Neurological: Negative. Hematological: Negative. Psychiatric/Behavioral: Negative. Past Medical History: Diagnosis Date ??? Abnormal findings on cardiac catheterization 12/13/2014 Mild CAD, mildly decreased LV systolic function. See report, [facility], Dr. Perry. ??? Acute bacterial sinusitis 10/13/2019 See office note. ??? Chronic obstructive pulmonary disease ([facility]) 02/23/2010 COPD ??? Community acquired pneumonia of right lower lobe of lung ([facility]) 10/10/2019 See office note. Treated empirically. ??? Hyperglycemia 08/25/2014 Elevated blood sugar ??? Morbid obesity ([facility]) 08/25/2013 Obesity ??? Steatosis of liver 10/05/2014 Hepatic steatosis Social History Socioeconomic History ??? Marital status: Single Spouse name: Not on file ??? Number of children: Not on file ??? Years of education: Not on file ??? Highest education level: Not on file Occupational History ??? Not on file Social Needs ??? Financial resource strain: Not on file ??? Food insecurity: Worry: Not on file Inability: Not on file ??? Transportation needs: Medical: Not on file Non-medical: Not on file Tobacco Use ??? Smoking status: Former Smoker Packs/day: 1.00 Years: 24.00 Pack years: 24.00 Start date: 07/14/1990 Last attempt to quit: 06/25/2014 Years since quittin.4 ??? Smokeless tobacco: Never Used Substance and Sexual Activity ??? Alcohol use: No ??? Drug use: No ??? Sexual activity: Not on file Lifestyle ??? Physical activity: Days per week: Not on file Minutes per session: Not on file ??? Stress: Not on file Relationships ??? Social connections: Talks on phone: Not on file Gets together: Not on file Attends hoahaoism service: Not on file Active member of club or organization: Not on file Attends meetings of clubs or organizations: Not on file Relationship status: Not on file ??? Intimate partner violence: Fear of current or ex partner: Not on file Emotionally abused: Not on file Physically abused: Not on file Forced sexual activity: Not on file Other Topics Concern ??? Not on file Social History Narrative ??? Not on file Family History Problem Relation Age of Onset ??? Other Mother Age 67 alive and well.; ??? Other Father Age 65 with unknow cancer.; ??? Testicular cancer Father In his 40s ??? Stomach cancer Father ??? Kidney cancer Father ??? Diabetes type II Paternal Grandmother ??? Diabetes type II Paternal Grandfather BP 120/73 Pulse 56 Ht 170.2 cm (5' 7 ) Wt 115.7 kg (255 lb) BMI 39.94 kg/m?? Physical Exam Constitutional: Appearance: He is well-developed. HENT: Head: Normocephalic and atraumatic. Comments: Mallampati airway class IV Eyes: Conjunctiva/sclera: Conjunctivae normal. Pupils: Pupils are equal, round, and reactive to light. Neck: Musculoskeletal: Normal range of motion and neck supple. Cardiovascular: Rate and Rhythm: Normal rate and regular rhythm. Pulmonary: Effort: Pulmonary effort is normal. Breath sounds: Normal breath sounds. Abdominal: General: Bowel sounds are normal. Palpations: Abdomen is soft. Musculoskeletal: Normal range of motion. Skin: General: Skin is warm and dry. Neurological: Comments: ALERT AND ORIENTED TO TIME PLACE AND PERSON. AP 1. Severe Obstructive sleep apnea: Endorses symptoms suggestive of obstructive sleep apnea syndrome. Patient's sleep study confirms evidence of severe obstructive sleep apnea syndrome The physiology of sleep disordered breathing and its increased association with hypertension, diabetes, heart arrhythmia, strokes, heart attacks, heart failure, hypersomnia, obesity and mood disorders was discussed.Patient was set up with automatic positive pressure therapy of 8- 16 cm. Fullface mask would be used. Optimize therapy further with compliance download. Patient's polysomnography from 11/19/2019 was reviewed. Baseline AHI 42.3. Supine AHI 72.3. 2. Hypersomnia: Primarily from sleep fragmentation associated with uncontrolled sleep disordered breathing. Monitor response to therapy for the above. 3. Severe Obesity:The effects of obesity obstructive sleep apnea syndrome and other morbidities wasdiscussed. Recommended diet and exercise in losing weight. Patient verbalizes an understanding. RIBUTION COORDINATOR documented in this encounter Plan of Treatment Not on file documented as of this encounter Visit Diagnoses Diagnosis Severe obstructive sleep apnea- Primary Hypersomnia with sleep apnea Hypersomnia with sleep apnea, unspecified Severe obesity (BMI 35.0-35.9 with comorbidity) (HCC) documented in this encounter Care Teams Gastroenterology Teacher Relationship Specialty Start Date End Date Az [place] MD [address] [place] [address] PCP - General 02/22/17 09/19/22 documented as of this encounter
--- OUTSIDE RECORDS SUMMARY | 2024-11-24 10:10 | XMS_ITS | Encounter Summary ---
Author Organization 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 Lehman's office, patient is aware referral was sent and Dr. Lehman's office will be in contact to schedule. Patient voiced understanding. OR SOLUTIONS CONSULTANT * Telephone Encounter - Chuyita Hyman RN - 11/30/2019 11:21 AM SENIOR SOLUTIONS CONSULTANT Pt called back and informed pt that he does have severe sleep apnea Informed him of all of dr crowder recommendations Pt is good seeing dr lehman TOADM:please send referral to dr lehman Diagnosis sleep apnea OR SOLUTIONS CONSULTANT * Telephone Encounter - Chuyita Hyman RN - 11/30/2019 11:01 AM SENIOR SOLUTIONS CONSULTANT Called and left a message for pt to call us back OR SOLUTIONS CONSULTANT * Telephone Encounter - Az [place] MD - 11/28/2019 4:32 PM CST Please call patient. Recent sleep study results show the followin. Severe obstructive sleep apnea syndrome 2. Consider [...] continued 6. 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 Lehman and a CPAP titration. Please make the arrangements. OR SOLUTIONS CONSULTANT documented in this encounter Plan of Treatment Not on file documented as of this encounter Visit Diagnoses Diagnosis Severe obstructive sleep apnea- Primary documented in this encounter Care Teams Market Developer Relationship Specialty Start Date End Date Az [place] MD [address] [place] [address] PCP - General 02/22/17 09/19/22 documented as of this encounter
--- OUTSIDE RECORDS SUMMARY | 2024-11-24 10:10 | XMS_ITS | Encounter Summary ---
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 No / Unsure 02/04/2020 1:19 PM CDT documented as of this encounter Miscellaneous Notes * Telephone Encounter - Az [place] MD - 02/04/2020 4:57 PM CDT He has acute otitis media, right ear. See office note. * Telephone Encounter - Tamia Villagran RN - 02/04/2020 11:06 AM CDT Called and spoke to pt. States, feels aweful. head and chest congestion. cough nasal congestion. States, had fever last night but no thermometer to check temp. Denies Sob or wheezing. Declines offer for Flu Swab. I'm certain I don't have the flu. Pt requesting ATB. Advised pt to come into office for sick call. Call transferred to [facility] to schedule. Denies any travel domestic or out of country. To Dr MANN: Update * Telephone Encounter - Kenia Hancock - 02/04/2020 8:29 AM CDT Pt has symptoms of Sore throat Cough Runny nose Stuffy head Had fever Chest congestion Pt has had symptoms since this past Saturday. [place] [facility]#[id number] patient [facility] documented in this encounter Plan of Treatment Not on file documented as of this encounter Visit Diagnoses Not on filedocumented in this encounter Care Teams Transmission Line Engineer Relationship Specialty Start Date End Date Az [place] MD [address] [place] [address] PCP - General 02/22/17 09/19/22 Pascale Wolff MD [address] [place] [address] Consulting Physician Sleep Medicine 12/06/19 documented as of this encounter
--- OUTSIDE RECORDS SUMMARY | 2024-11-24 10:11 | XMS_ITS | Encounter Summary ---
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
--- OUTSIDE RECORDS SUMMARY | 2024-11-24 10:11 | XMS_ITS | Encounter Summary ---
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 Gender Identity Not on file Sexual Orientation Not on file documented as of this encounter Plan of Treatment Not on file documented as of this encounter Procedures Procedure Name Priority Date/Time Associated Diagnosis Comments SURGICAL PATHOLOGY Routine 10/15/2019 9: 36 AM DIRECTOR OF LABOR AND DELIVERY Skin lesion documented in this encounter Results * Surgical pathology (10/15/2019 9:36 AM DIRECTOR OF LABOR AND DELIVERY) Tissue 10/15/2019 9:36 AM DIRECTOR OF LABOR AND DELIVERY 10/16/2019 9:36 AM DIRECTOR OF LABOR AND DELIVERY Narrative PATHOLOGY [facility] ([facility]) - 10/19/2019 9:42 AM DIRECTOR OF LABOR AND DELIVERY PSYCHIATRIC results best viewed via link to PDF [facility] Department of Pathology [address] [place] [id number] Final Report Patient Name: ??JAVIER SANCHEZ Address: ??[address] [place] [address], ??[place], [place] ??[address] Gender: ??M : ??1970 (Age: 49) Service: ??Laboratory Location: ??Lab Hospital #: ??[id number] Patient Type: ?? Ref Lab Accession # ?[id number] Taken: ??10/15/2019 Received: ??10/16/2019 Accessioned: ??10/16/2019 Reported: ??10/19/2019 Physician(s):Bowen Silva MD Diagnosis: Skin, scrotum, biopsy: ? - Verruca vulgaris, most consistent with. Ramos Hardy MD Report Electronically Reviewed and Signed Out By ??Ramos Hardy MD ??10/19/2019 09:42:46 Specimen(s) Received: A: Scrotum skin tag Microscopic Description: Microscopic examination shows digitated epidermal hyperplasia with alternating parakeratosis and hyperkeratosis, keratohyalin granules with hypergranulosis, and dilated blood vessels at the tips of dermal papillae. ??Focal viral cytopathic effect is also noted. ??The findings are most consistent with verruca vulgaris. Clinical History: Skin lesion Procedure: Skin excision Gross Description: The specimen is submitted in a single container labeled Javier Sanchez and scrotal skin tag . ??It is a shaved remy wrinkled skin lesion measuring 2 mm. ??The specimen is inked and all in one cassette. ??José Miguel Wilson M.D., Ph.D./TJamel Lau, P.A. REPORT IMAGES AND SCANNED DOCUMENTS, IF INCLUDED, ONLY VIEWABLE IN PDF VERSION OF REPORT The performance characteristics of some immunohistochemical stains, fluorescence in-situ hybridization tests and immunophenotyping by flow cytometry cited in this report (if any) were determined by the Surgical Pathology Department at [facility] as part of an ongoing quality lab technician program and in compliance with federally mandated regulations drawn from the Clinical Laboratory Improvement Act of 1988 (CLIA '88). ??Some of these tests rely on the use of analyte specific reagents and are subject to specific labeling requirements by the US Food and Drug Administration. ??Such diagnostic tests may only be performed in a facility that is certified by the Department of Health and Human Services as a high complexity laboratory under CLIA '88. The FDA has determined that such clearance or approval is not necessary. ??This test is used for clinical purposes. ??It should not be regarded as investigational or for research. ??Nevertheless, federal rules concerning the medical use of analyte specific reagents require that the following disclaimer be attached to the report: This test was developed and its performance characteristics determined by the Surgical Pathology Department [facility]. ??It has not been cleared or approved by the U. S. Food and Drug Administration. Bowen Silva MD LAB PATHOLOGY OR DERABLES Final Result Performing Organization Address City/State/[facility] Co de Phone Number PATHOLOGY [facility] ([facility]) [address] [place] [address] documented in this encounter Visit Diagnoses Diagnosis Skin lesion Unspecified disorder of skin and subcutaneous tissue documented in this encounter Care Teams Lamp Shade Sewer Relationship Specialty Start Date End Date Az [place] MD [address] [place] [address] PCP - General 02/22/17 09/19/22 documented as of this encounter
--- OUTSIDE RECORDS SUMMARY | 2024-11-24 10:11 | XMS_ITS | Encounter Summary ---
Author Organization [facility] Address [address] [address] Care Team Providers Care Food Preparer Name Role Phone Az Allison MD Primary Care Provider [phone] Reason for Referral * Outpatient Surgery (Routine) - Closed Specialty Diagnoses / Procedures Referred By Monster blackwell Referred To Contact Diagnoses Skin lesion Procedures Skin Biopsy Cynthia Velazquez NP Phone: tel: fax: [facility] Referral ID Status Reason Start Date Expiration Date Visits Re quested Visits Authorized [id number] Closed 10/11/2019 04/21/2021 1 1 HANDISE DISPLAYER Reason for Visit * Reason Comments Cyst back, inner left leg * Consultation (Routine) - Closed Specialty Diagnoses / Procedures Referred By Monster blackwell Referred To Contact General Surgery Diagnoses Skin lesion Az Allison MD Phone: tel: fax: Joaquim Oreilly MD [address] [place] [address] [place] [address] Phone: tel: fax: Referral ID Status Reason Start Date Expiration Date V isits Requested Visits Authorized [id number] Closed Specialty Services Required 07/17/2019 01/25/2021 1 1 Encounter Details Date Type Department Care Team (Late st Contact Info) Description 10/01/2019 1:00 PM MERCHANDISE DISPLAYER Office Visit [facility] [address] [facility] [address] [place] [phone] Cynthia Velazquez NP [address] [facility] [address] [place] [address] Skin lesion (Primary Dx) Social History Tobacco Use Types [...] on file Legal Sex Male 9:12 AM MERCHANDISE DISPLAYER Gender Identity Not on file Sexual Orientation Not on file documented as of this encounter Last Filed Vital Signs Vital Sign Reading Time Taken Comments Blood Pressure 145/85 10/01/2019 1:07 PM MERCHANDISE DISPLAYER Pulse 56 10/01/2019 1:07 PM MERCHANDISE DISPLAYER Temperature - - Respiratory Rate - - Oxygen Saturation - - Inhaled Oxygen Concentration - - Weight 114.8 kg (253 lb) 10/01/2019 1:07 PM MERCHANDISE DISPLAYER Height 170.2 cm (5' 7 ) 10/01/2019 1:07 PM MERCHANDISE DISPLAYER Body Mass Index 39.63 10/01/2019 1:07 PM MERCHANDISE DISPLAYER documented in this encounter Progress Notes * Cynthia Velazquez NP - 10/01/2019 1:00 PM CST Subjective/Objective Patient ID: Javier Sanchez is a 49 y.o. male. Chief Complaint Cyst (back, inner left leg) Other This is a chronic problem. The current episode started more than 1 year ago. The problem occurs every several days. The problem has been unchanged. Pertinent negatives include no anorexia, arthralgias, change in bowel habit, chills, fatigue, fever, headaches, joint swelling, myalgias, nausea, sore throat, swollen glands or urinary symptoms. The symptoms are aggravated by exertion. Treatments tried: has seen a ice cream van vendor in the past who would remove a few lesions at a time, but patient statedit was too expensive to keep returning Review of Systems Constitutional: Negative. Negative for chills, fatigue and fever. HENT: Negative. Negative for sore throat. Eyes: Negative. Respiratory: Negative. Cardiovascular: Negative. Gastrointestinal: Negative. Negative for anorexia, change in bowel habit and nausea. Endocrine: Negative. Genitourinary: Negative. Musculoskeletal: Negative. Negative for arthralgias, joint swelling and myalgias. Skin: Negative. Allergic/Immunologic: Asthma Neurological: Negative. Negative for headaches. Hematological: Negative. Psychiatric/Behavioral: Negative. Physical Exam Constitutional: General: He is not in acute distress. Appearance: Normal appearance. He is not ill-appearing, toxic-appearing or diaphoretic. HENT: Head: Normocephalic and atraumatic. Mouth/Throat: Mouth: Mucous membranes are moist. Eyes: Pupils: Pupils are equal, round, and reactive to light. Neck: Musculoskeletal: Normal range of motion. Cardiovascular: Rate and Rhythm: Bradycardia present. Pulses: Normal pulses. Pulmonary: Effort: Pulmonary effort is normal. Abdominal: General: There is no distension. Palpations: Abdomen is soft. Skin: General: Skin is warm and dry. Coloration: Skin is not jaundiced or pale. Findings: No bruising or erythema. Comments: Left inner Thigh with a flesh colored nodule, without any sign of inflammation, ulceration, or current drainage. Several faint and small skin tag appearing nodules to upper back. Neurological: General: No focal deficit present. Mental Status: He is alert and oriented to person, place, and time. Psychiatric: Mood and Affect: Mood normal. Behavior: Behavior normal. Judgment: Judgment normal. Assessment/Plan Diagnoses and all orders for this visit: Skin lesion (L98.9) Assessment & Plan: Discussed the procedure of excision of the lesion and the patient expressed desire for removal of the inner thigh lesion and 3 on his back. Discussed wound care after procedure. Orders: - Ambulatory referral to General Surgery - Surgical pathology; Future Cosigned by Bowen Silva MD at 10/12/2019 2:12 PM MERCHANDISE DISPLAYER HANDISE DISPLAYER HANDISE DISPLAYER documented in this encounter Procedure Notes * Cynthia Velazquez NP - 10/01/2019 1:00 PM CSTAssociated Order(s): Skin Biopsy Post-Procedure Diagnose(s): Skin lesion Skin Biopsy Date/Time: 10/11/2019 1:27 PM Performed by: Cynthia Velazquez NP Authorized by: Cynthia Velazquez NP Preparation: Patient was prepped and draped in the usual sterile fashion. Local anesthesia used: yes Anesthesia: local infiltration Anesthesia: Local anesthesia used: yes Local Anesthetic: lidocaine 1% with epinephrine Anesthetic total: 9 mL Sedation: Patient sedated: no Patient tolerance: Patient tolerated the procedure well with no immediate complications Comments: The skin tag to the left inner thigh, right upper back, and two the left upper back were all excised using a bailey to elevate the lesion and keep it taught while using the scalpel excise right at the base. Bleeding was addressed with nitrate sticks. And the areas were then covered with antibiotic ointment and bandaids. HANDISE DISPLAYER documented in this encounter Miscellaneous Notes * Assessment & Plan Note - Cynthia Velazquez NP - 10/11/2019 1:20 PM CSTAssociated Problem(s): Skin lesion (Resolved 10/31/2019) Discussed the procedure of excision of the lesion and the patient expressed desire for removal of the inner thigh lesion and 3 on his back. Discussed wound care after procedure. HANDISE DISPLAYER documented in this encounter Plan of Treatment Not on file documented as of this encounter Procedures Procedure Name Priority Date/Time Associated Diagnosis Comments SKIN BIOPSY Routine 10/01/2019 1:00 PM MERCHANDISE DISPLAYER Skin lesion documented in this encounter Results * SKIN BIOPSY (10/01/2019 1:00 PM MERCHANDISE DISPLAYER) Narrative Cynthia Velazquez NP - 10/01/2019 1:00 PM MERCHANDISE DISPLAYER Cynthia Velazquez NP ? 10/11/2019 ??1:34 PM Skin Biopsy Date/Time: 10/11/2019 1:27 PM Performed by: Cynthia Velazquez NP Authorized by: Cynthia Velazquez NP Preparation: Patient was prepped and draped in the usual sterile fashion. Local anesthesia used: yes Anesthesia: local infiltration Anesthesia: Local anesthesia used: yes Local Anesthetic: lidocaine 1% with epinephrine Anesthetic total: 9 mL Sedation: Patient sedated: no Patient tolerance: Patient tolerated the procedure well with no immediate complications Comments: The skin tag to the left inner thigh, right upper back, and two the left upper back were all excised using a bailey to elevate the lesion and keep it taught while using the scalpel excise right at the base. Bleeding was addressed with nitrate sticks. And the areas were then covered with antibiotic ointment and bandaids. us Cynthia Velazquez [facility]/BEDSIDE ORDERABLES Fin al Result * Surgical pathology (10/01/2019 9:40 AM MERCHANDISE DISPLAYER) Tissue 10/01/2019 9:40 AM MERCHANDISE DISPLAYER 10/02/2019 9:40 AM MERCHANDISE DISPLAYER Narrative PATHOLOGY [facility] ([facility]) - 10/05/2019 10:37 AM MERCHANDISE DISPLAYER [facility] results best viewed via link to PDF [facility] Department of Pathology [address] [place] [id number] Final Report Patient Name: ??JAVIER SANCHEZ Address: ??[address] [place] [address], ??[place], [place] ??[address] Gender: ??M : ??1970 (Age: 49) Service: ??Laboratory Location: ??Lab Hospital #: ??[id number] Patient Type: ?? Ref Lab Accession # ?[id number] Taken: ??10/01/2019 Received: ??10/02/2019 Accessioned: ??10/02/2019 Reported: ??10/05/2019 Physician(s):MAGO Kwan Diagnosis: A. ??Skin, left upper thigh, biopsy: ? - Verruca vulgaris. B. ??Skin, right upper back, biopsy: ? - Fibroepithelial polyp, compatible with. - See microscopic description. C. ??Skin, left upper back, biopsy: ? - Verruca vulgaris. Ramos Hardy MD Report Electronically Reviewed and Signed Out By ??Ramos Hardy MD ??10/05/2019 10:37:03 Specimen(s) Received: A: Left upper thigh skin lesion B: Right upper back skin lesion C: Left upper back skin lesion Microscopic Description: A, C. ??Specimens A and C show similar findings and will be described together. ??Sections show hyperkeratosis with parakeratosis, hypergranulosis, digitated epidermal hyperplasia, and dilated blood vessels at the tips of dermal papillae. ??The findings are compatible with verrucae. ??Clinical correlation is recommended. B. ??Microscopic examination shows a polypoid tissue fragment lined by squamous epithelium. ??The epithelium demonstrates normal maturation without definitive evidence of epithelial atypia or viral cytopathic effect. ??There is no significant inflammation. The aforementioned findings are not entirely specific, however, in the correct clinical context they may be compatible with a fibroepithelial polyp. ??There is no evidence of malignancy. ??Clinical correlation is recommended. Clinical History: Skin lesion Gross Description: The specimen is submitted in three containers labeled Javier Sanchez . A. ??The first container is labeled left upper thigh . ??It is a shaved remy polypoid skin lesion measuring 6 mm. ??The specimen is inked, sectioned and all in A. B. ??The second container is labeled right upper back skin lesion . ??It is two remy tissue fragments measuring 1-2 mm. ??The specimen is inked and all in B. C. ??The third container is labeled left upper back . ??It is one shaved remy granular skin lesion measuring 2 mm. ??The specimen is inked and all in C. ??Brian Sanchez M.D./Fallon Hernandez. REPORT IMAGES AND SCANNED DOCUMENTS, IF INCLUDED, ONLY VIEWABLE IN PDF VERSION OF REPORT The performance characteristics of some immunohistochemical stains, fluorescence in-situ hybridization tests and immunophenotyping by flow cytometry cited in this report (if any) were determined by the Surgical Pathology Department at [facility] as part of an ongoing air quality chemist program and in compliance with federally mandated [...] characteristics determined by the Surgical Pathology Department [facility]. ??It has not been cleared or approved by the U. S. Food and Drug Administration. Cynthia Velazquez NP LAB PATHOLOGY ORDERABLES Final R esult PATHOLOGY [facility] ([place]) [address] [place] [address] documented in this encounter Visit Diagnoses Diagnosis Skin lesion- Primary Unspecified disorder of skin and subcutaneous tissue Skin lesion Unspecified disorder of skin and subcutaneous tissue documented in this encounter Orders Outpatient Referral Count Last Ordered Date Fir st Ordered Date AMB REFERRAL TO GENERAL SURGERY 1 9 documented in this encounter Care Teams Food Preparer Relationship Specialty Start Date End Date Az Allison MD [address] [place] [address] PCP - General 02/22/17 09/19/22 documented as of this encounter
--- OUTSIDE RECORDS SUMMARY | 2024-11-24 10:11 | XMS_ITS | Encounter Summary ---
Author Organization [facility] Address [address] [facility] [address] [place] [address] Care Team Providers Care Manugrapher Name Role Phone Az Allison MD Primary Care Provider [phone] Reason for Visit * Reason Comments Office procedure Scrotal lesions Encounter Details Date Type Department Care Team (Late st Contact Info) Description 10/29/2019 11:00 AM QUALITY CONTROL ENGINEER Procedure visit [facility] [address] [facility] [address] [place] [phone] Bowen Silva MD [address] [place] [address] [address] [place], [place] [id number] Verruca vulgaris (Primary Dx) Social History Tobacco [...] on file Legal Sex Male 9:12 AM QUALITY CONTROL ENGINEER Gender Identity Not on file Sexual Orientation Not on file documented as of this encounter Last Filed Vital Signs Vital Sign Reading Time Taken Comments Blood Pressure 137/78 10/29/2019 11:21 AM QUALITY CONTROL ENGINEER Pulse 54 10/29/2019 11:21 AM QUALITY CONTROL ENGINEER Temperature - - Respiratory Rate - - Oxygen Saturation - - Inhaled Oxygen Concentration - - Weight 115.8 kg (255 lb 3.2 oz) 019 11:21 AM QUALITY CONTROL ENGINEER Height 170.2 cm (5' 7 ) 10/29/2019 11:2 1 AM QUALITY CONTROL ENGINEER Body Mass Index 39.97 10/29/2019 11:21 AM QUALITY CONTROL ENGINEER documented in this encounter Progress Notes * Bowen Silva MD - 10/29/2019 11:00 AM CST Progress Note Subjective: HPI: No new complaints. Did well from previous excision of multiple skin tags from scrotal region Chief complaint: Scrotal skin tags Objective: Vitals BP 137/78 (BP Location: Right arm, Patient Position: Sitting) Pulse 54 Ht 170.2 cm (5' 7 ) Wt 115.8 kg (255 lb 3.2 oz) BMI 39.97 kg/m?? Physical Exam Scrotum: Prior excision sites have healed well. Persistent skin tags remaining Assessment/Plan verruca vulgaris Pathology results returned as verruca vulgaris. We will plan for removal of another 20-30 in the setting. Given the shear number we may have to bring him back 1 further time to complete the last few remaining. He is in understanding. Bowen Silva MD 10:38 AM 10/31/2019 ITY CONTROL ENGINEER * Bowen Silva MD - 10/29/2019 11:00 AM CST Patient ID: Javier Sanchez 49 y.o. male 10/31/19 Surgeon: Cedrick Silva MD Pre operative Diagnosis: Verruca vulgaris Post operative Diagnosis: Same Procedure: Excision of multiple scrotal warts (24 en total) Local: 1% lidocaine injection Specimen: None EBL: Minimal Description of procedure: After informed consent was obtained the scrotal region was prepped and draped in standard sterile fashion. Local anesthetic was used to raise wheels underneath each of the scrotal warts. The lesions were then grasped and amputated at their base with a 15 blade scalpel. Twenty-four in total were removed. Bacitracin was then applied, covered by fluff gauze and the patient's underwear. He tolerated t he procedure well. ITY CONTROL ENGINEER documented in this encounter Miscellaneous Notes * Assessment & Plan Note - Bowen Silva MD - 10/31/2019 10:37 AM CSTAssociated Problem(s): Verruca vulgaris Pathology results returned as verruca vulgaris. We will plan for removal of another 20-30 in the setting. Given the shear number we may have to bring him back 1 further time to complete the last few remaining. He is in understanding. ITY CONTROL ENGINEER ITY CONTROL ENGINEER documented in this encounter Plan of Treatment Not on file documented as of this encounter Visit Diagnoses Diagnosis Verruca vulgaris- Primary Viral warts, unspecified documented in this encounter Care Teams Manugrapher Relationship Specialty Start Date End Date Az Allison MD [address] [place] [address] PCP - General 02/22/17 09/19/22 documented as of this encounter
--- OUTSIDE RECORDS SUMMARY | 2024-11-24 10:11 | XMS_ITS | Encounter Summary ---
Author Organization [facility] Address [address] [facility] [address] [place] [address] Care Team Providers Care Adjunct Professor Of U.[place]. History Name Role Phone Az Allison MD Primary Care Provider [phone] Reason for Visit * Reason Comments Diarrhea x3 days Encounter Details Date Type Department Care Team (Latest Contact Info) Description 11/13/2019 2:00 PM ASSOCIATE APPLICATION DEVELOPER Office Visit [facility] [address] [place] [phone] Stephie Pineda, MANAGEMENT ACCOUNTANT [address] [place] [address] Diarrhea, unspecified type (Primary Dx) Social History Tobacco Use Types [...] on file Legal Sex Male 9:12 AM ASSOCIATE APPLICATION DEVELOPER Gender Identity Not on file Sexual Orientation Not on file documented as of this encounter Last Filed Vital Signs Vital Sign Reading Time Taken Comments Blood Pressure 120/80 11/13/2019 1:56 PM ASSOCIATE APPLICATION DEVELOPER Pulse 66 11/13/2019 1:56 PM ASSOCIATE APPLICATION DEVELOPER Temperature 36.6 ??C (97.9 ??F) 11/13/2019 1:56 PM CS T Respiratory Rate 16 11/13/2019 1:56 PM ASSOCIATE APPLICATION DEVELOPER Oxygen Saturation 99% 11/13/2019 1:56 PM ASSOCIATE APPLICATION DEVELOPER Inhaled Oxygen Concentration - - Weight 112.9 kg (249 lb) 11/13/2019 1:56 PM ASSOCIATE APPLICATION DEVELOPER Height - - Body Mass Index 39 10/29/2019 11:21 AM ASSOCIATE APPLICATION DEVELOPER documented in this encounter Patient Instructions * Patient Instructions* Stephie Pineda NP - 11/13/2019 2:00 PM ASSOCIATE APPLICATION DEVELOPER Instructions for patient: 1) Continue with bowel rest for 12-24 hours with sips of water/clear soda (sprite), gatorade, then may increase to a bland diet (BRAT diet: bananas, rice, applesauce, toast). Then if tolerated may increase to regular diet. 2) If symptoms persist or worsen, call us or go to ED. CIATE APPLICATION DEVELOPER documented in this encounter Progress Notes * Stephie Pineda NP - 11/13/2019 2:00 PM CST Patient: Javier Sanchez : 1970 ASSESSMENT AND PLAN: Diarrhea Pt has improved over the past few days, with today feeling the best he has felt and hasn't had a BMsince early this morning. Recommend a bowel rest for 12-24 hours with sips of fluids (water/gatorade). Then start with bland diet of BRAT diet: bananas, rice, applesauce, toast. Then increase diet as tolerated to full diet. If symptoms are worsening or persisting over the weekend, seek treatment at ED. DATE OF VISIT: 11/13/2019 CHIEF COMPLAINT: Chief Complaint Patient presents with ??? Diarrhea x3 days HPI: Constant diarrhea since Saturday, it has roland let up this morning. Denies n/v/, states he felt likehe had a fever Saturday night after it started. He has felt weak and felt a little SOB since then. Hx of pnuemonia a few weeks ago and was on antibiotics (2 rounds). Main complaint is abdominal cramping, headache. He still has been eating. Denies blood in the stools. Notices extra burping. Last episode of diarrhea was this morning at 4 am with stomach cramping, but he has been able to eat since and has not had any stools. He notices feeling improved today than the past 2 days. He reports that heis not currently experiencing any abdominal cramping while here today. Vital signs: BP 120/80 (BP Location: Right arm, Patient Position: Sitting) Pulse 66 Temp 36.6 ??C (97.9 ??F)(Tympanic) Resp 16 Wt 112.9 kg (249 lb) SpO2 99% BMI 39.00 kg/m?? Allergies: Allergies Allergen Reactions ??? Hydrocodone-Acetaminophen ??? Penicillins ROS: Review of Systems Constitutional: Positive for malaise/fatigue. HENT: Negative. Eyes: Negative. Respiratory: Negative. Cardiovascular: Negative. Gastrointestinal: Positive for abdominal pain and diarrhea. Genitourinary: Negative. Musculoskeletal: Negative. Skin: Negative. Neurological: Negative. Endo/Heme/Allergies: Negative. Psychiatric/Behavioral: Negative. PHYSICAL EXAM: Physical Exam Constitutional: He is oriented to person, place, and time and well-developed, well-nourished, and in no distress. HENT: Head: Normocephalic and atraumatic. Right Ear: External ear normal. Left Ear: External ear normal. Eyes: Conjunctivae are normal. Neck: Neck supple. Cardiovascular: Normal rate, regular rhythm, normal heart sounds and intact distal pulses. Pulmonary/Chest: Effort normal and breath sounds normal. Abdominal: Soft. Bowel sounds are normal. Neurological: He is alert and oriented to person, place, and time. Gait normal. Skin: Skin is warm and dry. Psychiatric: Mood and affect normal. Stephie Pineda NP Cosigned by Az Allison MD at 12/06/2019 1:31 PM ASSOCIATE APPLICATION DEVELOPER CIATE APPLICATION DEVELOPER CIATE APPLICATION DEVELOPER CIATE APPLICATION DEVELOPER documented in this encounter Miscellaneous Notes * Assessment & Plan Note - Stephie Pineda NP - 11/13/2019 2:20 PM ASSOCIATE APPLICATION DEVELOPER Associated Problem(s): Diarrhea (Resolved 01/27/2021) Pt has improved over the past few days, with today feeling the best he has felt and hasn't had a BMsince early this morning. Recommend a bowel rest for 12-24 hours with sips of fluids (water/gatorade). Then start with bland diet of BRAT diet: bananas, rice, applesauce, toast. Then increase diet as tolerated to full diet. If symptoms are worsening or persisting over the weekend, seek treatment at ED. CIATE APPLICATION DEVELOPER CIATE APPLICATION DEVELOPER documented in this encounter Plan of Treatment Not on file documented as of this encounter Visit Diagnoses Diagnosis Diarrhea, unspecified type- Primary documented in this encounter Care Teams Adjunct Professor Of U.S. History Relationship Specialty Start Date End Date Az Allison MD [address] [place] [address] PCP - General 02/22/17 09/19/22 documented as of this encounter
--- OUTSIDE RECORDS SUMMARY | 2024-11-24 10:11 | XMS_ITS | Encounter Summary ---
Author Organization [facility] Address [address] [facility] [address] [place] [address] Care Team Providers Care Stretcher Leveler Operator Name Role Phone Az Allison MD Primary Care Provider [phone] Encounter Details Date Type Department Care Team (Late st Contact Info) Description 10/08/2019 Telephone [facility] [place] [facility] [address] [facility] [address] [place] [phone] Marge May LPN Social History Tobacco Use Types Packs/Day Years [...] on file Legal Sex Male 9:12 AM SURFACE SHIP USW SUPERVISOR Gender Identity Not on file Sexual Orientation Not on file documented as of this encounter Miscellaneous Notes * Telephone Encounter - Marge May LPN - 10/08/2019 12:08 PM SURFACE SHIP USW SUPERVISOR Appointment made. ACE SHIP USW SUPERVISOR documented in this encounter Plan of Treatment Not on file documented as of this encounter Visit Diagnoses Not on filedocumented in this encounter Care Teams Stretcher Leveler Operator Relationship Specialty Start Date End Date Az Allison MD [address] [place] [address] PCP - General 02/22/17 09/19/22 documented as of this encounter
--- OUTSIDE RECORDS SUMMARY | 2024-11-24 10:11 | XMS_ITS | Encounter Summary ---
Author Organization [facility] Care Team Providers Care Transport Analyst Name Role Phone Az Allison MD Primary Care Provider [phone] Encounter Details Date Type Department Care Team (Latest Contact Info) Description 10/14/2019 Travel Social History Tobacco Use Types Packs/Day [...] on file Legal Sex Male 9:12 AM PARAFFIN PLANT OPERATOR Gender Identity Not on file Sexual Orientation Not on file documented as of this encounter Plan of Treatment Not on file documented as of this encounter Visit Diagnoses Not on filedocumented in this encounter Care Teams Transport Analyst Relationship Specialty Start Date End Date Az Allison MD [address] [place] [address] PCP - General 02/22/17 09/19/22 documented as of this encounter
--- OUTSIDE RECORDS SUMMARY | 2024-11-24 10:11 | XMS_ITS | Encounter Summary ---
Author Organization [facility] Address [address] [place] [address] Care Team Providers Care Applications Packager Name Role Phone Az Allison MD Primary Care Provider [phone] Reason for Visit * Diagnostic Imaging (Routine) - Closed Specialty Diagnoses / Procedures Referred By Monster blackwell Referred To Contact Diagnoses Chronic coronary artery disease Steatosis of liver Procedures Liver Az Allison MD Phone: tel: fax: [facility] Referral ID Status Reason Start Date Expiration Date Visits Re quested Visits Authorized [id number] Closed 07/17/2019 01/25/2021 1 1 Encounter Details Date Type Department Care Team (Latest Contact Info) Description 08/21/2019 8:10 AM CDT Ancillary Procedure [facility] [address] [place] [phone] Chronic coronary artery disease; Steatosis of liver Social History Tobacco Use Types Packs/Day Years [...] on file 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 Gender Identity Not on file Sexual Orientation Not on file documented as of this encounter Plan of Treatment Not on file documented as of this encounter Procedures Procedure Name Priority Date/Time Associated Diagnosis Comments US LIVER Schedule Routine, Read Routine (OP Routine) 08/21/2019 8:24 AM CDT Chronic coronary artery disease Steatosis of liver documented in this encounter Results * US Liver (08/21/2019 8:24 AM CDT) Anatomical Region Laterality Modality Abdomen N/A Ultrasound Narrative 08/21/2019 4:07 PM CDT LIVER ULTRASOUND: Real Time high-resolution ultrasonography of the liver fails to reveal evidence of abnormal mass or biliary ductal dilation. ??The gallbladder is normal. ??There is not free fluid. ??Increased echotexture of the liver noted consistent with fatty infiltration. ??Gallbladder wall measures 1.9 mm. ??Common bile duct measures 2.4 mm. ??Pancreas is poorly seen. Right kidney measures 10.8 x 4.6 x 5.6 cm. ??Aorta, IVC, and portal vein are unremarkable. ?? SUMMARY: 1. Increased echotexture of the liver consistent with fatty infiltration. ?? No discrete hepatic mass or intrahepatic ductal dilatation seen. 2. Visualized gallbladder is unremarkable. ??No gallstones seen. ?? us Az Allison MD IM US PROCEDURES Final Resul t documented in this encounter Visit Diagnoses Diagnosis Chronic coronary artery disease Coronary atherosclerosis of unspecified type of vessel, [place] or graft Steatosis of liver Other chronic nonalcoholic liver disease documented in this encounter Care Teams Applications Packager Relationship Specialty Start Date End Date Az Allison MD [address] CHEN [address] [place] [id number] PCP - General 02/22/17 09/19/22 documented as of this encounter
--- OUTSIDE RECORDS SUMMARY | 2024-11-24 10:11 | XMS_ITS | Encounter Summary ---
Author Organization 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 * Telephone Encounter - Lanny Lee RN - 07/28/2019 10:59 AM CDT NICOLLE Pt aware of lab results. He is scheduled for U/S on 08/07/[address] [facility]. He knows that Hep A et B recommended et he will check with his insurance to see if this is a covered benefit for him. He will arrange after the U/S. * Telephone Encounter - Az Allison MD - 07/25/2019 12:13 PM CDT Please call patient. Recent results show the following: Lab Results Component Value Date GLUCOSE 104 06/15/2019 CALCIUM 9.6 06/15/2019 SODIUM 140 06/15/2019 POTASSIUM 4.5 06/15/2019 CO2 25 06/15/2019 CHLORIDE 100 06/15/2019 BUNSER 14 06/15/2019 CREATININE 1.07 06/15/2019 Lab Results Component Value Date TSH 2.97 07/21/2019 Lab Results Component Value Date CHOL 209 (H) 07/21/2019 CHOL 217 (H) 10/22/2018 CHOL 142 12/13/2014 Lab Results Component Value Date HDL 43 07/21/2019 HDL 44 10/22/2018 HDL 40 12/13/2014 Lab Results Component Value Date LDLCALC 68 12/13/2014 LDL 130 (H) 07/21/2019 LDL 142 (H) 10/22/2018 Lab Results Component Value Date TRIG 222 (H) 07/21/2019 TRIG 177 (H) 10/22/2018 TRIG 172 12/13/2014 Lab Results Component Value Date WBC 7.3 07/21/2019 HGB 14.7 07/21/2019 HCT 44.8 07/21/2019 MCV 87.2 07/21/2019 LABPLAT 319 07/21/2019 Lab Results Component Value Date IRON 126 07/21/2019 TIBC 339 07/21/2019 FERRITIN 245 07/21/2019 Lab Results Component Value Date ALT 58 (H) 06/15/2019 AST 40 06/15/2019 ALKPHOS 60 06/15/2019 BILITOT 0.3 06/15/2019 Lab Results Component Value Date TRISTA NEGATIVE 07/21/2019 B12, testosterone, anti-smooth muscle antibody and hepatitis titers are all negative/normal. Work up is most consistent with fatty liver with mild inflammation in the liver. Remind him to get the USNof his liver. Recommend he get the hepatitis A and B series (Twinrix) and work on his diet and weight loss. If he has questions, let me know. documented in this encounter Plan of Treatment Not on file documented as of this encounter Visit Diagnoses Not on filedocumented in this encounter Care Teams Appliquer Zigzag Relationship Specialty Start Date End Date Az Allison MD [address] [place] [address] PCP - General 02/22/17 09/19/22 documented as of this encounter
--- OUTSIDE RECORDS SUMMARY | 2024-11-24 10:11 | XMS_ITS | Encounter Summary ---
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 Gender Identity Not on file Sexual Orientation Not on file documented as of this encounter Plan of Treatment Not on file documented as of this encounter Procedures Procedure Name Priority Date/Time Associated Diagnosis Comments SMOOTH MUSCLE AB W/REFL TITER Routine 07/21/2019 7:06 AM CDT IRON PROFILE W/ IBC Routine 07/21/2019 7 :06 AM CDT CBC WITH AUTO DIFFERENTIAL Routine 07/21/2019 7:06 AM CDT HEPATITIS C ANTIBODY Routine 07/21/2019 7:06 AM CDT TRISTA REFLEX TO QUANTITATIVE Routine 07/21/2019 7:06 AM CDT HEPATITIS B CORE ANTIBODY, TOTAL Routine 07/21/2019 7:06 AM CDT HEPATITIS B SURFACE ANTIBODY (IMMUNE STATUS) Routine 07/21/2019 7:06 AM CDT HEPATITIS B SURFACE ANTIGEN Routine 07/21/2019 7:06 AM CDT TSH Routine 07/21/2019 7:06 AM CDT TOTAL TESTOSTERONE Routine 07/21/2019 7: 06 AM CDT FERRITIN Routine 07/21/2019 7:06 AM CDT VITAMIN B12 Routine 07/21/2019 7:06 AM CDT LIPID PANEL Routine 07/21/2019 7:06 AM CDT documented in this encounter Results * SMOOTH MUSCLE AB W/REFL TITER (07/21/2019 7:06 AM CDT) Smooth muscle ab screen NEGATIVE NEGATIVE [facility] 07/21/2019 7:06 AM CDT 07/21/2019 7:11 AM CDT Narrative [facility] - 07/23/2019 4:34 PM CDT FASTING:YES FASTING: YES Resulting Agency Comment Performing Organization Information: ?Site ID: AT ?Name: [facility] ?Address: [address] [place] [id number] ?Director: Dr Ramos Cifuentes us Az Allison MD LAB BLOOD ORDERABLES Final Re sult [facility] [place], [place] * TRISTA reflex to quantitative (07/21/2019 7:06 AM CDT) TRISTA, qual NEGATIVE NEGATIVE [facility] [place] Comment: TRISTA IFA is a first line screen for detecting the presence of up to approximately 150 autoantibodies in various autoimmune diseases. A negative TRISTA IFA result suggests TRISTA-associated autoimmune diseases are not present at this time. Visit Physician FAQs for interpretation of all antibodies in the [place], prevalence, and association with diseases at http://SyncSum.DSO Interactive/ faq/LRO501 ?? 07/21/2019 7:06 AM CDT 07/21/2019 7:11 AM CDT Narrative [facility] - 07/23/2019 4:34 PM CDT FASTING:YES FASTING: YES Resulting Agency Comment Performing Organization Information: ?Site ID: [place] ?Name: [facility] ?Address: [address] [place] [address] [place] [address] ?Director: Orion Glynn D.O., MPH us Az Allison MD LAB BLOOD ORDERABLES Final Re sult [facility] [place] * Hepatitis C antibody (07/21/2019 7:06 AM CDT) Pathologist [facility] Hep C Ab NON-REACT CATRINA NON-REACT CATRINA [facility] [place] SIGNAL TO CUT-OFF 0.03 <1.00 [facility] [place] Comment: HCV antibody was non-reactive. There is no laboratory evidence of HCV infection. In most cases, no further action is required. However, if recent HCV exposure is suspected, a test for HCV RNA (test code 33433) is suggested. For additional information please refer to http://SyncSum.ColorPlaza/faq/OTE20c8 (This link is being provided for informational/ educational purposes only.) 07/21/2019 7:06 AM CDT 07/21/2019 7:11 AM CDT Narrative [facility] - 07/23/2019 4:34 PM CDT FASTING:YES FASTING: YES Resulting Agency Comment Performing Organization Information: ?Site ID: [place] ?Name: [facility] ?Address: [facility] [place] [address] ?Director: Orion Glynn D.O. MPH Az Allison MD LAB MICROBIOLOGY - GENERAL OR DERABLES Final Result Performing Organization Address [facility] de Phone Number AMADA Dominguez * Hepatitis B core antibody, total (07/21/2019 7:06 AM CDT) Hep B core IgG/IgM NON-REACTI VE NON-REACTI VE [facility] - [place] 07/21/2019 7:06 AM CDT 07/21/2019 7:11 AM CDT Narrative [facility] - 07/23/2019 4:34 PM CDT FASTING:YES FASTING: YES Resulting Agency Comment Performing Organization Information: ?Site ID: [place] ?Name: [facility] ?Address: [facility] [place] [address] ?Director: Orion Glynn D.O., MPH Az Allison MD LAB MICROBIOLOGY - GENERAL OR DERABLES Final Result Performing Organization Address [facility] de Phone Number AMADA Dominguez * Hepatitis B surface antibody (immune status) (07/21/2019 7:06 AM CDT) HBsAb (immune status) NON-REACTI VE NON-REACTI VE [facility] - [place] 07/21/2019 7:06 AM CDT 07/21/2019 7:11 AM CDT Narrative [facility] - 07/23/2019 4:34 PM CDT FASTING:YES FASTING: YES Resulting Agency Comment Performing Organization Information: ?Site ID: [place] ?Name: [facility] ?Address: [facility] [place] [address] ?Director: Orion Glynn D.O., MPH Az Allison MD LAB MICROBIOLOGY - GENERAL OR DERABLES Final Result Performing Organization Address [facility] Co de Phone Number [facility] - AM[place] Carrera * Hepatitis B Surface Antigen (07/21/2019 7:06 AM CDT) HepBsAg NON-REACTI VE NON-REACTI VE [facility] - [place] 07/21/2019 7:06 AM CDT 07/21/2019 7:11 AM CDT Narrative [facility] - 07/23/2019 4:34 PM CDT FASTING:YES FASTING: YES Resulting Agency Comment Performing Organization Information: ?Site ID: [place] ?Name: [facility] ?Address: [facility] [place] [address] ?Director: Orion Glynn D.O., IAN Az Allison MD LAB MICROBIOLOGY - GENERAL OR DERABLES Final Result Performing Organization Address [facility] de Phone Number [facility] - [place] Carrera * Vitamin B12 (07/21/2019 7:06 AM CDT) Vitamin B12 451 200 - 1,100 pg/mL [facility] - [place] 07/21/2019 7:06 AM CDT 07/21/2019 7:11 AM CDT Narrative [facility] - 07/23/2019 4:34 PM CDT FASTING:YES FASTING: YES Resulting Agency Comment Performing Organization Information: ?Site ID: [place] ?Name: [facility] ?Address: [facility] [place] [address] ?Director: Orion Glynn D.O. MPH Az Allison MD LAB BLOOD ORDERABLES Final Re sult Performing Organization Address [facility] Co de Phone Number [facility] [place] Carrera * Testosterone (07/21/2019 7:06 AM CDT) Testosterone 301 250 - 827 ng/dL [facility] - [place] 07/21/2019 7:06 AM CDT 07/21/2019 7:11 AM CDT Narrative [facility] - 07/23/2019 4:34 PM CDT FASTING:YES FASTING: YES Resulting Agency Comment Performing Organization Information: ?Site ID: AMADA ?Name: [facility] ?Address: [address] [place], [place] [address] [address] ?Director: Orion Glynn D.O., MPH Az Allison MD LAB BLOOD ORDERABLES Final Re sult Performing Organization Address [facility] Co de Phone Number [facility] AMADA Navarro * Ferritin (07/21/2019 7:06 AM CDT) Ferritin 245 38 - 380 ng/mL [facility] Nazario YBARRA 07/21/2019 7:06 AM CDT 07/21/2019 7:11 AM CDT Narrative [facility] - 07/23/2019 4:34 PM CDT FASTING:YES FASTING: YES Resulting Agency Comment Performing Organization Information: ?Site ID: AMADA ?Name: [facility] ?Address: [address] [place], [place] [address] [address] ?Director: Orion Glynn D.O. MPH Az Allison MD LAB BLOOD ORDERABLES Final Re sult Performing Organization Address [facility] Co de Phone Number [facility] - AM[place] Carrera * TSH (07/21/2019 7:06 AM CDT) TSH 2.97 0.40 - 4.50 mIU/L [facility] - [place] 07/21/2019 7:06 AM CDT 07/21/2019 7:11 AM CDT Narrative [facility] - 07/23/2019 4:34 PM CDT FASTING:YES FASTING: YES Resulting Agency Comment Performing Organization Information: ?Site ID: AMADA ?Name: [facility] ?Address: [facility] [place] [address] ?Director: Orion Glynn D.O. MPH Az Allison MD LAB BLOOD ORDERABLES Final Re sult [facility] - [place] Carrera * Iron profile w/ IBC (07/21/2019 7:06 AM CDT) Iron 126 50 - 180 mcg/dL [facility] [place] TIBC 339 250 - 425 mcg/dL (calc) [facility] [place] Iron saturation 37 20 - 48 % (calc) [facility] [place] 07/21/2019 7:06 AM CDT 07/21/2019 7:11 AM CDT Narrative [facility] - 07/23/2019 4:34 PM CDT FASTING:YES FASTING: YES Resulting Agency Comment Performing Organization Information: ?Site ID: AMADA ?Name: [facility] ?Address: [facility] [place] [address] ?Director: Orion Glynn D.O. MPH Az Allison MD LAB BLOOD ORDERABLES Final Re sult Performing Organization Address [facility]/ZIP Co de Phone Number [facility] - [place] Carrera * (ABNORMAL) Lipid panel (07/21/2019 7:06 AM CDT) Cholesterol 209(H) <200 mg/dL [facility] [place] HDL 43 >40 mg/dL [facility] [place] Triglycerides 222(H) <150 mg/dL [facility] [place] Comment: If a non-fasting specimen was collected, consider repeat triglyceride testing on a fasting specimen if clinically indicated. Yunier et al. J. of Clin. Lipidol. 2015;9:129-169. LDL 130(H) mg/dL (calc) [facility] [place] Comment: Reference range: <100 Desirable range <100 mg/dL for primary prevention; ?? <70 mg/dL for patients with CHD or diabetic patients with > or = 2 CHD risk factors. LDL-C is now calculated using the Gale calculation, which is a validated novel method providing better accuracy than the Friedewald equation in the estimation of LDL-C. Ronnie MONTES et al. NEGAR. 2013;310(19): 2004-9886 (http://education.DSO Interactive/faq/JCJ220) Chol/HDL ratio 4.9 <5.0 (calc) [facility] [place] Non-HDL, (LDL+VLDL) 166(H) <130 mg/dL (calc) [facility] [place] Comment: For patients with diabetes plus 1 major ASCVD risk factor, treating to a non-HDL-C goal of <100 mg/dL (LDL-C of <70 mg/dL) is considered a therapeutic option. 07/21/2019 7:06 AM CDT 07/21/2019 7:11 AM CDT Narrative [facility] - 07/23/2019 4:34 PM CDT FASTING:YES FASTING: YES Resulting Agency Comment Performing Organization Information: ?Site ID: [place] ?Name: [facility] ?Address: [address] [place] [address] ?Director: Orion Glynn D.O., MPH us Az Allison MD LAB BLOOD ORDERABLES Final Re sult [facility] [place] * CBC with auto differential (07/21/2019 7:06 AM CDT) WBC 7.3 3.8 - 10.8 Thousand/u L [facility] [place] RBC, POC 5.14 4.20 - 5.80 Million/uL [facility] [place] Hgb 14.7 13.2 - 17.1 g/dL [facility] [place] Hct 44.8 38.5 - 50.0 % [facility] [place] MCV 87.2 80.0 - 100.0 fL [facility] [place] MCH 28.6 27.0 - 33.0 pg [facility] [place] MCHC 32.8 32.0 - 36.0 g/dL [facility] [place] Rdw 13.0 11.0 - 15.0 % [facility] [place] Platelets 319 140 - 400 Thousand/u L [facility] [place] MPV 10.0 7.5 - 12.5 fL [facility] [place] Neutrophils, abs 4,314 1,500 - 7,800 cells/uL [facility] [place] Lymphocytes, abs 2,212 850 - 3,900 cells/uL [facility] [place] Monocyte abs 511 200 - 950 cells/uL [facility] [place] Eosinophils, abs 212 15 - 500 cells/uL [facility] [place] Basophils, abs 51 0 - 200 cells/uL [facility] [place] Neutrophils 59.1 % [facility] [place] Lymphocyte pct 30.3 % [facility] [place] Monocytes 7.0 % [facility] [place] Eosinophils 2.9 % [facility] [place] Basophils 0.7 % [facility] [place] 07/21/2019 7:06 AM CDT 07/21/2019 7:11 AM CDT Narrative [facility] - 07/23/2019 4:34 PM CDT FASTING:YES FASTING: YES Resulting Agency Comment Performing Organization Information: ?Site ID: [place] ?Name: [facility] ?Address: [address] [place], [place] [address] [address] ?Director: Orion Glynn D.O., MPH us Az Allison MD LAB BLOOD ORDERABLES Final Re sult [facility] - [place] Car[place] documented in this encounter Visit Diagnoses Not on filedocumented in this encounter Care Teams Grounds Crew Supervisor Relationship Specialty Start Date End Date Az Allison MD [address] [place] [address] PCP - General 02/22/17 09/19/22 documented as of this encounter
--- OUTSIDE RECORDS SUMMARY | 2024-11-24 10:11 | XMS_ITS | Encounter Summary ---
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 Informed pt that [facility] sent in RX for omnicef and advises he also use afrin for 5 days. Informed pt to call back if symptoms persists and he may need to a follow up appointment or to see a specialist. Pt verbalized understanding of the conversation. Pt also reports that he has not smoked for 7 years. DEVELOPER DESIGNER * Telephone Encounter - Lazara Jarvis RN - 10/21/2019 8:24 AM UI DEVELOPER DESIGNER Called and left message for pt to return call. DEVELOPER DESIGNER * Telephone Encounter - Az Allison MD - 10/21/2019 8:09 AM CST Rx sent for Omnicef. Have him take Afrin for 5 days, as well as the antibiotic for possible sinus infection. If not getting better, we will need to see him for a follow up or refer to pulmonary or ENT. He needs to quit smoking. DEVELOPER DESIGNER * Telephone Encounter - Chuyita Hyman RN - 10/20/2019 4:33 PM CST Pt called back and states that he has tolerated a cephalosporin in the past such as Duricef, Omnicef, Ceftin, all of these in the past without any reaction The reaction was just to plain penicillin about10 years ago TOES:update on the penicillin allergy DEVELOPER DESIGNER * Telephone Encounter - Chuyita Hyman RN - 10/20/2019 3:39 PM CST Called and left a message for the pt to call us back DEVELOPER DESIGNER * Telephone Encounter - Az Allison MD - 10/20/2019 3:35 PM CST Ask him to clarify the nature of his allergy to penicillin, as that will determine what we give himnext, or if he has tolerated a cephalosporin in the past such as Duricef, Omnicef, Ceftin, we couldgive him one of those. DEVELOPER DESIGNER * Telephone Encounter - Chuyita Hyman RN - 10/20/2019 8:48 AM CST Called pt and he states that he ' Has no fever His ears are still hurting He continues to have a congested cough coughing up thick yellow mucus Sounds very congested in his head TOES:Pt wanting to know if he needs another round of antibiotics still not feeling well DEVELOPER DESIGNER * Telephone Encounter - Kenia Hancock - 10/20/2019 8:08 AM CST [phone] [facility] Pt states he saw last week and was diagnosed with pneumonia. Pt states he is 50% better but he still don't feel good and the pain in side is back again. Pt wants to know if would call in a antibiotic? DEVELOPER DESIGNER documented in this encounter Plan of Treatment Not on file documented as of this encounter Visit Diagnoses Diagnosis Acute bacterial sinusitis- Primary Acute sinusitis, unspecified documented in this encounter Historical Medications * This list may reflect changes made after this encounter. oxymetazoline (AFRIN) 0.05 % nasal spray Administer 2 sprays into each nostril 2 (two) times a day 10/21/2019 9 added in this encounter Care Teams Package Sorter Relationship Specialty Start Date End Date Az Allison MD [address] [place] [address] PCP - General 02/22/17 09/19/22 documented as of this encounter
--- OUTSIDE RECORDS SUMMARY | 2024-11-24 10:11 | XMS_ITS | Encounter Summary ---
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 CING INTERN * Telephone Encounter - Zoila Self - 11/06/2019 8:48 AM CST Answer to your question. No. Box Press Operator Denied [facility] Split Night Sleep Study. Can see denial letter scanned in under media dated on 10-08-19. See 09-28-19 phone messages. On 10-28-19 you gave me orders to order Portable Home Sleep Study. Portable Home Sleep Study was Approved & pt is scheduled for this on 11-19-19. CING INTERN * Telephone Encounter - Az Allison MD - 11/05/2019 9:43 PM CST Did we contact insurance to request peer to peer? CING INTERN * Telephone Encounter - Zoila Self - 10/28/2019 4:12 PM CST See 09-28-19 phone notes. Md ordered a Home Sleep Study & pt is already aware of this in 09-28-19 phone notes. CING INTERN * Telephone Encounter - Az Allison MD - 10/26/2019 4:14 PM CST I don't understand the insurance company's logic. I think he should have one. If he wants us to appeal, we will do so. CING INTERN * Telephone Encounter - Lazara Jarvis RN - 10/26/2019 12:17 PM SOURCING INTERN TO ADMIN: Please Advise on Sleep Study Pt called back. Pt says that the last round of abx helped and all of his symptoms have cleared up. He is feeling much better. Pt was scheduled to have a sleep study but received a note from his insurance stating that it was unnecessary. Pt cancelled the sleep study. TO ECS; Update CING INTERN * Telephone Encounter - Lazara Jarvis RN - 10/26/2019 12:11 PM SOURCING INTERN Called and left message for pt to return call ( [phone]). CING INTERN * Telephone Encounter - Az Allison MD - 10/24/2019 11:15 AM CST Please check on patient again and his cough? CING INTERN documented in this encounter Plan of Treatment Not on file documented as of this encounter Visit Diagnoses Not on filedocumented in this encounter Care Teams Oracle Pl Sql Developer Relationship Specialty Start Date End Date Az Allison MD [address] [place] [address] PCP - General 02/22/17 09/19/22 documented as of this encounter
--- OUTSIDE RECORDS SUMMARY | 2024-11-24 10:11 | XMS_ITS | Encounter Summary ---
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 Please ask dr. Silva if he would remove lesions, most likely warts from his scrotum, as patient requested these be removed at the time of the visit but I would not do these. ENSING AND MEASURING OPTICIAN documented in this encounter Plan of Treatment Not on file documented as of this encounter Procedures Procedure Name Priority Date/Time Associated Diagnosis Comments SURGICAL PATHOLOGY Routine 10/01/2019 9: 40 AM DISPENSING AND MEASURING OPTICIAN Skin lesion documented in this encounter Results * Surgical pathology (10/01/2019 9:40 AM DISPENSING AND MEASURING OPTICIAN) Tissue 10/01/2019 9:40 AM DISPENSING AND MEASURING OPTICIAN 10/02/2019 9:40 AM DISPENSING AND MEASURING OPTICIAN Narrative PATHOLOGY [facility] ([place]) - 10/05/2019 10:37 AM DISPENSING AND MEASURING OPTICIAN EPIC results best viewed via link to PDF [facility] Department of Pathology [address] [place] [address] Final Report Patient Name: ??JAVIER SANCHEZ Address: ??[address] [place] [address], ??[place], [place] ??[address] Gender: ??M : ??1970 (Age: 49) Service: ??Laboratory Location: ??Lab Hospital #: ??[id number] Patient Type: ?? Ref Lab Accession # ?[id number] Taken: ??10/01/2019 Received: ??10/02/2019 Accessioned: ??10/02/2019 Reported: [...] determined by the Surgical Pathology Department at [facility] as part of an ongoing manager quality compliance program and in compliance with federally mandated [...] characteristics determined by the Surgical Pathology Department [facility]. ??It has not been cleared or approved by the U. S. Food and Drug Administration. Cynthia Velazquez CONSTRUCTION MANAGEMENT INSTRUCTOR LAB PATHOLOGY ORDERABLES Final R esult PATHOLOGY [facility] ([place]) [address] [place] [address] documented in this encounter Visit Diagnoses Diagnosis Skin lesion Unspecified disorder of skin and subcutaneous tissue documented in this encounter Care Teams Promotions Assistant Relationship Specialty Start Date End Date Az Allison MD [address] CHEN [address] [place] [id number] PCP - General 02/22/17 09/19/22 documented as of this encounter
--- OUTSIDE RECORDS SUMMARY | 2024-11-24 10:11 | XMS_ITS | Encounter Summary ---
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
--- OUTSIDE RECORDS SUMMARY | 2024-11-24 10:11 | XMS_ITS | Encounter Summary ---
Author Organization [facility] Address [address] [place] [address] Care Team Providers Care Barrel Endshake Adjuster Name Role Phone Az Allison MD Primary Care Provider [phone] Reason for Visit * Reason Comments Office Procedure Multiple lesions on scrotum Encounter Details Date Type Department Care Team (Late st Contact Info) Description 10/15/2019 10:45 AM BANKMAN Procedure visit [facility] [address] [facility] [address] [facility] [address] [place] [address] Bowen Silva MD [address] [place] [address] [address] [place] [address] Skin lesion (Primary Dx) Social History Tobacco [...] on file Legal Sex Male 9:12 AM BANKMAN Gender Identity Not on file Sexual Orientation Not on file documented as of this encounter Last Filed Vital Signs Vital Sign Reading Time Taken Comments Blood Pressure 150/80 10/15/2019 10:49 AM BANKMAN Pulse 74 10/15/2019 10:49 AM BANKMAN Temperature - - Respiratory Rate - - Oxygen Saturation - - Inhaled Oxygen Concentration - - Weight 112.9 kg (249 lb) 10/15/2019 10:49 AM BANKMAN Height 170.2 cm (5' 7 ) 10/15/2019 10:49 AM BANKMAN Body Mass Index 39 10/15/2019 10:49 AM BANKMAN documented in this encounter Progress Notes * Bowen Silva MD - 10/15/2019 10:45 AM CST Progress Note Subjective: HPI: The the patient returns for removal of his multiple general skin tags Chief complaint: Multiple skin tags Objective: Vitals BP 150/80 (BP Location: Right arm, Patient Position: Sitting) Pulse 74 Ht 170.2 cm (5' 7 ) Wt 112.9 kg (249 lb) BMI 39.00 kg/m?? Physical Exam Scrotum: Multiple skin tags of varying size Assessment/Plan Diagnoses and all orders for this visit: Skin lesion (Primary) Assessment & Plan: We will set this patient up for excision under local anesthetic in the office. Given the shear number and sensitive nature of the area I have discussed that we may have to do this in 2 settings giventhe large number. He is in understanding. Orders: - Surgical pathology; Future Bowen Silva MD 1:32 PM 10/16/2019 MAN * Bowen Silva MD - 10/15/2019 10:45 AM CST Patient ID: Javier Sanchez 49 y.o. male 10/16/19 Surgeon: Cedrick Silva MD Pre operative Diagnosis: Scrotal skin tags Post operative Diagnosis: Same Procedure: Excision of scrotal skin tags (26 in total) Local: 1% lidocaine injection Specimen: Scrotal skin tag EBL: 10 cc Description of procedure: The patient was prepped and draped in standard sterile fashion. Attention was directed towards the scrotum. Using 1% lidocaine multiple skin wheals were made underneath the skin tags. The skin tags were then grasped with an Adson pickup and amputated at their base with a 15 blade scalpel. One lesion was sent off for pathology. We removed a total of 26. We then applied bacitracin, fluff gauze and underwear. The patient tolerated the procedure well. MAN documented in this encounter Miscellaneous Notes * Assessment & Plan Note - Bowen Silva MD - 10/16/2019 1:32 PM CSTAssociated Problem(s): Skin lesion (Resolved 10/31/2019) We will set this patient up for excision under local anesthetic in the office. Given the shear number and sensitive nature of the area I have discussed that we may have to do this in 2 settings giventhe large number. He is in understanding. MAN documented in this encounter Plan of Treatment Not on file documented as of this encounter Results * Surgical pathology (10/15/2019 9:36 AM BANKMAN) Tissue 10/15/2019 9:36 AM BANKMAN 10/16/2019 9:36 AM BANKMAN Narrative PATHOLOGY [facility] ([facility]) - 10/19/2019 9:42 AM BANKMAN [facility] results best viewed via link to PDF [facility] Department of Pathology [address] [place] [address] Final Report Patient Name: ??JAVIER SANCHEZ Address: ??[address] [place] [address], ??[place], [place] ??[address] Gender: ??M : ??1970 (Age: 49) Service: ??Laboratory Location: ??Lab Hospital #: ??[id number] Patient Type: ?? Ref Lab Accession # ?[id number] Taken: ??10/15/2019 Received: ??10/16/2019 Accessioned: ??10/16/2019 Reported: [...] in one cassette. ??José Miguel Wilson M.D., Ph.D./Yamile Lau PValerie. REPORT IMAGES AND SCANNED DOCUMENTS, IF INCLUDED, ONLY VIEWABLE IN PDF VERSION OF REPORT The performance characteristics of some immunohistochemical stains, fluorescence in-situ hybridization tests and immunophenotyping by flow cytometry cited in this report (if any) were determined by the Surgical Pathology Department at [facility] as part of an ongoing quality control inspector program and in compliance with federally mandated [...] determined by the Surgical Pathology Department [facility]. ??It has not been cleared or approved by the U. S. Food and Drug Administration. Bowen Silva MD LAB PATHOLOGY OR DERABLES Final Result PATHOLOGY [facility]) [address] [place] [address] documented in this encounter Visit Diagnoses Diagnosis Skin lesion- Primary Unspecified disorder of skin and subcutaneous tissue Skin lesion Unspecified disorder of skin and subcutaneous tissue documented in this encounter Care Teams Barrel Endshake Adjuster Relationship Specialty Start Date End Date Az Allison MD [address] [place] [address] PCP - General 02/22/17 09/19/22 documented as of this encounter
--- OUTSIDE RECORDS SUMMARY | 2024-11-24 10:11 | XMS_ITS | Encounter Summary ---
Author Organization [facility] Address [address] [place] [address] Care Team Providers Care Production Sorter Name Role Phone Az Allison MD Primary Care Provider [phone] Encounter Details Date Type Department Care Team (Late st Contact Info) Description 10/14/2019 1:20 PM AURICULAR DETOXIFICATION SPECIALIST Office Visit [facility] [address] [place] [address] Az Allison MD [address] [address] Community acquired pneumonia of right lower lobe of lung (CMS/HCC) (Primary Dx) Social History Tobacco Use Types [...] on file Legal Sex Male 9:12 AM AURICULAR DETOXIFICATION SPECIALIST Gender Identity Not on file Sexual Orientation Not on file documented as of this encounter Last Filed Vital Signs Vital Sign Reading Time Taken Comments Blood Pressure 138/78 10/14/2019 1:14 PM AURICULAR DETOXIFICATION SPECIALIST Pulse 77 10/14/2019 1:14 PM AURICULAR DETOXIFICATION SPECIALIST Temperature 36.9 ??C (98.4 ??F) 10/14/2019 1:14 PM CS T Respiratory Rate 18 10/14/2019 1:14 PM AURICULAR DETOXIFICATION SPECIALIST Oxygen Saturation 98% 10/14/2019 1:14 PM AURICULAR DETOXIFICATION SPECIALIST Inhaled Oxygen Concentration - - Weight 114.8 kg (253 lb) 10/14/2019 1:14 PM AURICULAR DETOXIFICATION SPECIALIST Height 170.2 cm (5' 7 ) 10/14/2019 1:14 PM AURICULAR DETOXIFICATION SPECIALIST Body Mass Index 39.63 10/14/2019 1:14 PM AURICULAR DETOXIFICATION SPECIALIST documented in this encounter Patient Instructions * Patient Instructions* Az Allison MD - 10/14/2019 1:20 PM AURICULAR DETOXIFICATION SPECIALIST Stay of work for the rest of the week. Start azithromycin and cough medication. If not getting better, schedule a follow up visit, or go to the emergency room. CULAR DETOXIFICATION SPECIALIST documented in this encounter Ordered Prescriptions Prescription Sig Dispense Quantity Refills Last Filled Start Date End Date guaiFENesin-codein e (GUAITUSS AC) liquid 100-10 mg/5 mLIndications:Comm unity acquired pneumonia of right lower lobe of lung Take 5 mL by mouth 3 (three) times a day as needed for cough 120 mL 1 10/14/2019 10/31/2019 azithromycin (ZITHROMAX) 500 mg tabletIndications: Pneumonia, Community Acquired Take 1 tablet (500 mg total) by mouth daily for 5 days 5 tablet 10/14/2019 10/19/2019 documented in this encounter Progress Notes * Az Allison MD - 10/14/2019 1:20 PM CST Problem List Items Addressed This Visit Respiratory Community acquired pneumonia of right lower lobe of lung (CMS/HCC) - Primary He has had respiratory symptoms off and on for a couple of months, but recently developed a recurrence with fever and chills. He has nasal and sinus congestion, and pain in the right ear. He has a cough productive of white to creamy sputum. No hemoptysis. He has a pleuritic pain in the right mid tolower chest wall where there are some fine crackles on exam. Overall impression is right mid to lower lung pneumonia. We will get him started on some antibiotics and symptom treatment. Follow up in aweek or so if not getting better, or go to ER if getting worse. Relevant Medications guaiFENesin-codeine (GUAITUSS AC) liquid 100-10 mg/5 mL Routine/Preventive Care: He had this year's flu shot already. He has also had both pneumonia shots. HPI: The patient presents for evaluation and management of a febrile illness with cough and right lower lung pleuritic pain. He probably has community- acquired pneumonia. He is allergic to penicillin. We are putting him on azithromycin and if he does not improve over the next day or two, he should r eturn for re-evaluation. If he gets worse, he should go to the emergency room. Review of Systems Constitutional: Positive for chills, diaphoresis and fever. HENT: Positive for congestion, ear pain (mild bilateral ear discomfort), sinus pressure and sore throat (Sore throat early in illness). Eyes: Negative for photophobia, discharge and redness. Respiratory: Positive for cough ( productive clear to slightly milky sputum). Negative for wheezing. Cardiovascular: Positive for chest pain ( pleuritic chest pain in the right mid to lower lung anteriorly). Negative for leg swelling. Gastrointestinal: Negative for abdominal pain, constipation, diarrhea and nausea. Appetite is poor Endocrine: Obese/muscular. Genitourinary: Negative for dysuria and hematuria. He is making plenty of urine Skin: Negative for rash. Hematological: Negative for adenopathy. Current medication list reviewed and reconciled. Allergies Allergen Reactions ??? Hydrocodone-Acetaminophen ??? Penicillins Past Medical, Family and Social History: Pertinent details reviewed. Vitals: 10/14/19 1314 BP: 138/78 BP Location: Left arm Patient Position: Sitting Pulse: 77 Resp: 18 Temp: 36.9 ??C (98.4 ??F) SpO2: 98% Weight: 114.8 kg (253 lb) Height: 170.2 cm (5' 7 ) Physical Exam Constitutional: General: He is not in acute distress. HENT: Left Ear: Tympanic membrane and ear canal normal. Ears: Comments: Moderate right TM sclerosis, mild left TM sclerosis. Good light reflex on left. Right side partially blocked by wax, there may be some inflammatory change, but he does have a history of frequent ear infections as a child so most of the findings appear chronic. Nose: Congestion present. Mouth/Throat: Mouth: Mucous membranes are moist. Pharynx: [...] is normal. No respiratory distress. Breath sounds: Rales (Few fine right lateral and anterior crackles, no friction rub. Air movement is good throughout) present. No wheezing. Abdominal: Palpations: Abdomen is soft. There is no mass. Tenderness: There is no tenderness. There is no guarding. Musculoskeletal: General: No swelling or tenderness. Comments: No joint warmth or swelling noted. Lymphadenopathy: Head: Right side of head: No preauricular, posterior auricular or occipital adenopathy. Left side of head: No preauricular, posterior auricular or occipital adenopathy. Cervical: No cervical adenopathy. Upper Body: Right upper body: No supraclavicular or epitrochlear adenopathy. Left upper body: No supraclavicular or epitrochlear adenopathy. Skin: General: Skin is warm. Findings: No rash. Neurological: Mental Status: He is alert. Cranial Nerves: No cranial nerve deficit. Comments: Motor strength, coordination without observed lateralizing deficit. Psychiatric: Mood and Affect: Mood normal. Behavior: Behavior normal. Thought Content: Thought content normal. Labs/Imaging/Other: Nothing new ordered at this time. [...] fatigue R53.83 ??? Steatohepatitis, non-alcoholic K75.81 ??? Skin lesion L98.9 ??? Community acquired pneumonia of right lower lobe of lung (CMS/HCC) J18.1 ??? Acute bacterial sinusitis J01.90, B96.89 CULAR DETOXIFICATION SPECIALIST documented in this encounter Miscellaneous Notes * Assessment & Plan Note - Az Allison MD - 10/24/2019 11:06 AM AURICULAR DETOXIFICATION SPECIALIST Associated Problem(s): Community acquired pneumonia of right lower lobe of lung (Resolved 11/28/2019) He has had respiratory symptoms off and on for a couple of months, but recently developed a recurrence with fever and chills. He has nasal and sinus congestion, and pain in the right ear. He has a cough productive of white to creamy sputum. No hemoptysis. He has a pleuritic pain in the right mid tolower chest wall where there are some fine crackles on exam. Overall impression is right mid to lower lung pneumonia. We will get him started on some antibiotics and symptom treatment. Follow up in aweek or so if not getting better, or go to ER if getting worse. CULAR DETOXIFICATION SPECIALIST documented in this encounter Plan of Treatment Not on file documented as of this encounter Visit Diagnoses Diagnosis Community acquired pneumonia of right lower lobe of lung- Primary documented in this encounter Care Teams Production Sorter Relationship Specialty Start Date End Date Az Allison MD [address] [place] [address] PCP - General 02/22/17 09/19/22 documented as of this encounter
--- OUTSIDE RECORDS SUMMARY | 2024-11-24 10:11 | XMS_ITS | Encounter Summary ---
Author Organization 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 * Telephone Encounter - Tamia Villagran RN - 08/24/2019 12:02 PM CDT Pt returned call. Discussed Dr MANN comments and recommendations re: Liver ULS report. Pt verbalized understanding. States, will call and schedule appt with DR MANN when returns from business trip to discuss in mre detail. To Dr MANN: Update * Telephone Encounter - Tamia Villagran RN - 08/24/2019 10:23 AM CDT Left msg for pt to return call. * Telephone Encounter - Az Allison MD - 08/22/2019 2:17 PM CDT Please call patient. Recent USN results show the followin. Increased echotexture of the liver consistent with fatty infiltration. No discrete hepatic mass or intrahepatic ductal dilatation seen. ?? 2. Visualized gallbladder is unremarkable. No gallstones seen. Follow up labs were all normal, so fatty liver is the best explanation for mild elevation of liver enzymes. Recommend a weight loss diet low in carbohydrates and fats. If he would like an early follow up with me to go over everything in detail, or if he wants a referral to a specialist for further evaluation and recommendations, we can arrange. documented in this encounter Plan of Treatment Not on file documented as of this encounter Visit Diagnoses Not on filedocumented in this encounter Care Teams School Health Assistant Relationship Specialty Start Date End Date Az Allison MD [address] [place] [address] PCP - General 02/22/17 09/19/22 documented as of this encounter
--- OUTSIDE RECORDS SUMMARY | 2024-11-24 10:11 | XMS_ITS | Encounter Summary ---
Author Organization 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
--- OUTSIDE RECORDS SUMMARY | 2024-11-24 10:11 | XMS_ITS | Encounter Summary ---
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
--- OUTSIDE RECORDS SUMMARY | 2024-11-24 10:11 | XMS_ITS | Encounter Summary ---
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
--- OUTSIDE RECORDS SUMMARY | 2024-11-24 10:11 | XMS_ITS | Encounter Summary ---
Author Organization [facility] Address [address] [place] [id number] Care Team Providers Care An/Sqq 89(V)15 Sonar System Journeyman Name Role Phone Az Allison MD Primary Care Provider [phone] Reason for Referral * Sleep Medicine (Routine) - Closed Specialty Diagnoses / Procedures Referred By Contac t Referred To Contact Diagnoses Sleep apnea, unspecified type Sleep disorder, unspecified Other fatigue Procedures Portable/Home Sleep Study Az Allison MD Phone: tel: fax: [facility] [address] [place] [address] Referral ID Status Reason Start Date Expiration Date Visits Re quested Visits Authorized [id number] Closed 10/28/2019 01/25/2020 1 1 CER HELPER Encounter Details Date Type Department Care Team (Late st Contact Info) Description 09/28/2019 Telephone [facility] [address] [place] [phone] Az Allison MD [address] [address] Social History Tobacco Use Types Packs/Day Years [...] on file Legal Sex Male 9:12 AM 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 Pt aware Brenna @ [facility] [place] will contact him to get this set up. He knows,if he doesn't hear from her within 1wk to give her a call. He states he already has her # & voiced understanding. CER HELPER CER HELPER * Telephone Encounter - Ladan Self - 10/28/2019 3:26 PM CST aware. md Eliu orders: Go back to Home Sleep Study. CER HELPER CER HELPER * Telephone Encounter - Ladan Self - 10/28/2019 3:09 PM CST Informed Brenna @ [facility] [place] Ins Denied PSG Split Night Sleep Study. Pt had already cx'd this. (See previous messages & 10-26-19 phone note.) Since ins denied in lab will they do the Home Sleep Study anyway? Brenna spoke with [employer] & she states it's not ideal ,but will have to do it,if approved. CER HELPER CER HELPER CER HELPER * Telephone Encounter - Ladan Self - 10/28/2019 3:06 PM CST Ins Denied PSG Split Night Sleep Study. See Denial letter from [employer] under media dated 10-08-19. CER HELPER CER HELPER * Telephone Encounter - Az Allison MD - 09/30/2019 1:29 PM CST Noted, thanks. CER HELPER * Telephone Encounter - Estefanía Garcia MA - 09/30/2019 10:47 AM CST Patient returned call, informed of message below. Patient states he would still be unable to complete in lab sleep study because he has to work later in the evening some times as well. To ECS: patient refused sleep study, order closed. CER HELPER * Telephone Encounter - Estefanía Garcia MA - 09/30/2019 10:45 AM CST Left patient message to return call. CER HELPER * Telephone Encounter - Estefanía Garcia MA - 09/29/2019 3:55 PM CST Spoke with Brenna at the Sleep Lab, stated the techs would be able to accommodate an earlier appointment as long as they are aware before hand so they know to start the study earlier. Patient would be able to leave in time for work. Patient will need to inform the sleep lab when they call him toschedule that he needs an early appointment due to work. Left patient message to return call. CER HELPER * Telephone Encounter - Az Allison MD - 09/29/2019 3:33 PM CST Try to work this out with the sleep lab at [facility]. Perhaps they could start the study early? CER HELPER * Telephone Encounter - Estefanía Garcia MA - 09/29/2019 2:30 PM CST TO ECS: Please advise CER HELPER * Telephone Encounter - Cindy Orta - 09/29/2019 2:25 PM CST Patient calling back and he cannot do the sleep study at the hospital. He has to be at work at 4:30am or 5:00 in the morning. Cbn: [phone] CER HELPER * Telephone Encounter - Ladan Self - 09/29/2019 11:23 AM CST Pt aware & voiced understanding. He was also given Brenna @ [facility] Sleep Diagnostics number. CER HELPER * Telephone Encounter - Ladan Self - 09/29/2019 10:56 AM CST Amisha had already took out order for Portable/Home Sleep Study placed @ 07-17-19 Annual visit because [facility] had called her on 09-17-19 & informed her of this & placed a new order for PSG Split Night Sleep Study under 07-17-19 Annual visit. Brenna @ [facility] is aware pt has agreed to do the PSG Split Night Sleep Study. She is aware pending auth.. Order faxed & she will contact pt to get this set up. CER HELPER * Telephone Encounter - Lanny Lee RN - 09/29/2019 8:53 AM CST Spoke with pt, message given. He is agreeable to proceed with sleep study at hospital-doesn't habe a preference. Please arrange-he knows to call in a week if he doesn't hear something by then. CER HELPER * Telephone Encounter - Lanny Lee RN - 09/29/2019 8:48 AM CST Left message to call back. CER HELPER * Telephone Encounter - Az Allison MD - 09/28/2019 5:02 PM CST Asthma and COPD her basically synonyms. He is on a couple of inhalers. He used to smoke cigarettes.They probably looked at this information and decided he did not qualify for a home sleep study, butwe could still have it done at the hospital. CER HELPER * Telephone Encounter - Tamia Villagran RN - 09/28/2019 12:08 PM SPLICER HELPER Called and spoke to pt. States, my home sleep study was cancelled because they told I don't qualify for a home sleep studydue to COPD. I don't have COPD that I was ever told. States, smoke for about 10 years but quit smoking 6 years ago. States, I was told that I would have to have an inpatient sleep study and I can't do that due to my work schedule. To Dr MANN: Please advise/ty CER HELPER * Telephone Encounter - Cindy Orta - 09/28/2019 11:22 AM CST Patient was suppose to have a home sleep study tonight and they called him and said they couldn't do it at home because he has COPD. He was not aware he had this and doesn't even know what this is. Cbn: [phone] CER HELPER documented in this encounter Plan of Treatment Scheduled Orders Name Type Priority Associated Diagnoses Orde r Schedule Portable/Home Sleep Study Sleep Center Routine Sleep apnea, unspecified type Sleep disorder, unspecified Other fatigue Expected: 10/28/2019, Expires: 10/28/2020 documented as of this encounter Visit Diagnoses Diagnosis Chronic coronary artery disease- Primary Coronary atherosclerosis of unspecified type of vessel, [place] or graft Sleep apnea, unspecified type Sleep disorder, unspecified Other fatigue documented in this encounter Care Teams An/Sqq 89(V)15 Sonar System Journeyman Relationship Specialty Start Date End Date Az Allison MD [address] [place] [address] PCP - General 02/22/17 09/19/22 documented as of this encounter
--- OUTSIDE RECORDS SUMMARY | 2024-11-24 10:12 | XMS_ITS | Encounter Summary ---
Author Organization [facility] Address [address] [place] [address] Phone Care Team Providers Care Laminating Machine Offbearer Name Role Phone Az Allison MD Primary Care Provider [phone] Encounter Details Date Type Department Care Team (Late st Contact Info) Description 07/14/2018 2:20 PM CDT Office Visit [facility] [address] [place] [address] Az lAlison MD [address] [address] Elevated serum creatinine (Primary Dx); Hyperglycemia; Mild persistent asthma without complication; Persistent mood disorder (CMS/HCC); Essential hypertension Social History Tobacco Use Types Packs/Day Years Used Date Smoking Tobacco: Former Cigarettes 1 24 0 07/14/1990 - 06/25/2014 Smokeless Tobacco: Never Alcohol Use Standard Drinks/Week Comments No 0 (1 standard drink = 0.6 oz pur e alcohol) Sex and Gender Information Value Date Recorded Sex Assigned at Not on file Legal Sex Male 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 Gender Identity Not on file Sexual Orientation Not on file documented as of this encounter Last Filed Vital Signs Vital Sign Reading Time Taken Comments Blood Pressure 144/82 07/14/2018 2:33 PM CDT Pulse 68 07/14/2018 2:33 PM CDT Temperature 36.7 ??C (98.1 ??F) 07/14/2018 2:33 PM CD T Respiratory Rate 18 07/14/2018 2:33 PM CDT Oxygen Saturation 97% 07/14/2018 2:33 PM CDT Inhaled Oxygen Concentration - - Weight 113.4 kg (250 lb) 07/14/2018 2:33 PM CDT Height - - Body Mass Index 40.35 06/07/2018 5:54 PM CDT documented in this encounter Patient Instructions * Patient Instructions* Az Allison MD - 07/14/2018 2:20 PM CDT Get a Symbicort sample from front services agent to see if it helps the cough. Get labs done as ordered. Return in 1 month for BP check. documented in this encounter Progress Notes * Az lAlison MD - 07/14/2018 2:20 PM CDT Problem List Items Addressed This Visit Respiratory Mild persistent asthma without complication (Chronic) He is not wheezing at this time. He has an albuterol inhaler for use as needed. He complains of a paroxysmal cough about every other day. This could be cough equivolent asthma. He was previously on along-acting beta-agonist and steroid combination with good control of asthma symptoms. We will givehim a Symbicort sample to see if this [...] we will have to seek other causes. Relevant Medications budesonide-formoterol (SYMBICORT) 160-4.5 mcg/actuation inhaler Other Relevant Orders CBC with auto differential (Completed) Circulatory Essential hypertension (Chronic) Blood pressure is somewhat borderline elevated, currently on lisinopril. We will have him come backin a month for recheck and if still elevated, consider a change in therapy. He does mention that hehas had some paroxysms of coughing lately. It happens about every other day. It lasts for about 10 min and goes away. He denies postnasal drainage or heartburn issues. This could be a lisinopril cough. Depending on labs, we may want to change his blood pressure medicine anyway so we will the revisiting all this. Relevant Orders Comprehensive metabolic panel (Completed) Endocrine/Metabolic Hyperglycemia (Chronic) He has had some mild elevations of blood sugar here and there. He could be at risk for diabetes. Itdoes run in his grandparents. We will keep a close eye on this with periodic checks. He will also try to get his weight down with a better diet. Relevant Orders Comprehensive metabolic panel (Completed) Other Persistent mood disorder (CMS/HCC) (Chronic) He is on duloxetine with good control of his mood issues. He complains of profuse sweating in the heat. If anything, I would think duloxetine would counter that a bit. Most likely it is his weight and a little heat intolerance that causes him to sweat so much. Elevated serum creatinine - Primary (Chronic) He has had a mild elevation [...] than one month or sooner as needed. Relevant Orders Comprehensive metabolic panel (Completed) HPI: The patient presents for follow-up from an emergency room visit. He had several episodes of heat exhaustion with severe cramping. 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 The first two episodes, he self-treated with hydration. The third episode he went to the emergency room, and creatinine was above 2.0 and hemoglobin above 19. He has not had labs checked since then, so we are getting them today. We plan to see him back in a month to review everything again and recheck his blood pressure. Review of Systems Constitutional: Negative for fever and unexpected weight change. HENT: Negative for hearing loss and rhinorrhea. Eyes: Negative for photophobia, discharge and redness. Respiratory: Positive for cough (paroxysmal cough recently). Negative for shortness of breath and wheezing. Cardiovascular: Negative for chest pain and leg swelling. Gastrointestinal: Negative for abdominal pain, blood in stool, constipation and diarrhea. Endocrine: Obese, borderline blood sugars. Genitourinary: Negative for dysuria and hematuria. Musculoskeletal: Negative for joint swelling. Skin: Negative for rash. Allergic/Immunologic: Negative for environmental allergies. Neurological: Negative for tremors and headaches. Hematological: Negative for adenopathy. Psychiatric/Behavioral: Negative for dysphoric mood. Current medication list reviewed and reconciled. Allergies Allergen Reactions ??? Hydrocodone-Acetaminophen ??? Penicillins Past Medical, Family and Social History: Pertinent details reviewed. Vitals: 07/14/18 1433 BP: 144/82 BP Location: Right arm Patient Position: Sitting Pulse: 68 Resp: 18 Temp: 36.7 ??C (98.1 ??F) TempSrc: Tympanic SpO2: 97% Weight: 113.4 kg (250 lb) Physical Exam Constitutional: No distress. Moderately obese, but very muscular and well-built. HENT: Mouth/Throat: Oropharynx is clear and moist. No oropharyngeal exudate. Visualized portions of TM and canals negative for acute inflammation, perforated TM or drainage.. Eyes: Conjunctivae are normal. Right eye exhibits no discharge. Left eye exhibits no discharge. No scleral icterus. No dysconjugate gaze or nystagmus. Neck: Carotid bruit is not present. No thyromegaly present. Cardiovascular: Normal rate, regular rhythm and normal heart sounds. Exam reveals no gallop and no friction rub. No murmur heard. Pulses: Carotid pulses are 2+ on the right side, and 2+ on the left side. Radial pulses are 2+ on the right side, and 2+ on the left side. Dorsalis pedis pulses are 2+ on the right side, and 2+ on the left side. Pulmonary/Chest: Effort normal and breath sounds normal. No respiratory distress. He has no wheezes. He has no rales. Abdominal: Soft. He exhibits no mass. There is no tenderness. There is no guarding. Musculoskeletal: He exhibits no edema or tenderness. No joint warmth or swelling noted. Lymphadenopathy: Head (right side): No preauricular, no posterior auricular and no occipital adenopathy present. Head (left side): No preauricular, no posterior auricular and no occipital adenopathy present. He has no cervical adenopathy. He has no axillary adenopathy. Right: No supraclavicular and no epitrochlear adenopathy present. Left: No supraclavicular and no epitrochlear adenopathy present. Neurological: He is alert. No cranial nerve deficit. He exhibits normal muscle tone. Coordination normal. Motor strength, coordination without observed deficit. Skin: Skin is warm. No rash noted. Psychiatric: He has a normal mood and affect. His behavior is normal. Thought content normal. Labs/Imaging/Other: Comprehensive panel and CBC ordered to follow-up abnormalities seen in the emergency room. documented in this encounter Miscellaneous Notes * Assessment & Plan Note - Az Allison MD - 07/14/2018 3:25 PM CDT Associated Problem(s): Persistent mood disorder (CMS/HCC) He is on duloxetine with good control of his mood issues. He complains of profuse sweating in the heat. If anything, I would think duloxetine would counter that a bit. Most likely it is his weight and a little heat intolerance that causes him to sweat so much. * Assessment & Plan Note - Az Allison MD - 07/14/2018 3:24 PM CDT Associated Problem(s): Mild intermittent asthma without complication He is not wheezing at this time. He has an albuterol inhaler for use as needed. He complains of a paroxysmal cough about every other day. This could be cough equivolent asthma. He was previously on along-acting beta-agonist and steroid combination with good control of asthma symptoms. We will givehim a Symbicort sample to see if this [...] we will have to seek other causes. * Assessment & Plan Note - Az Allison MD - 07/14/2018 3:23 PM CDT Associated Problem(s): Hyperglycemia He has had some mild elevations of blood sugar here and there. He could be at risk for diabetes. Itdoes run in his grandparents. We will keep a close eye on this with periodic checks. He will also try to get his weight down with a better diet. * Assessment & Plan Note - Az Allison MD - 07/14/2018 3:20 PM CDT Associated Problem(s): Hypertension Blood pressure is somewhat borderline elevated, currently on lisinopril. We will have him come backin a month for recheck and if still elevated, consider a change in therapy. He does mention that hehas had some paroxysms of coughing lately. It happens about every other day. It lasts for about 10 min and goes away. He denies postnasal drainage or heartburn issues. This could be a lisinopril cough. Depending on labs, we may want to change his blood pressure medicine anyway so we will the revisiting all this. * Assessment & Plan Note - Az Allison MD - 07/14/2018 3:19 PM CDT Associated Problem(s): Elevated serum creatinine He has had a mild elevation of [...] than one month or sooner as needed. documented in this encounter Plan of Treatment Not on file documented as of this encounter Procedures Procedure Name Priority Date/Time Associated Diagnosis Comments CBC WITH AUTO DIFFERENTIAL Routine 07/14/2018 3:27 PM CDT Mild persistent asthma without complication COMPREHENSIVE METABOLIC PANEL Routine 07/14/2018 3:27 PM CDT Elevated serum creatinine Hyperglycemia Essential hypertension documented in this encounter Results * (ABNORMAL) CBC with auto differential (07/14/2018 3:27 PM CDT) WBC 10.8 3.8 - 10.8 Thousand/ uL [facility] [place] RBC, POC 6.76(H) 4.20 - 5.80 Million/u L [facility] [place] Hgb 19.1(H) 13.2 - 17.1 g/dL [facility] [place] Comment: Verified by repeat analysis. Hct 58.0(H) 38.5 - 50.0 % [facility] [place] MCV 85.8 80.0 - 100.0 fL [facility] [place] MCH 28.3 27.0 - 33.0 pg [facility] [place] MCHC 32.9 32.0 - 36.0 g/dL [facility] [place] Rdw 16.9(H) 11.0 - 15.0 % [facility] [place] Platelets 303 140 - 400 Thousand/ uL [facility] [place] MPV 10.0 7.5 - 12.5 fL [facility] [place] Neutrophils, abs 6,577 1,500 - 7,800 cells/uL [facility] [place] Neutrophil bands, abs CANCELED 0 - 750 cells/uL [facility] [place] Comment:Result canceled by rosalva gibson ancillary Metamyelocytes, abs CANCELED 0 cells/uL [facility] [place] Comment:Result canceled by t he ancillary Absolute Myelocytes CANCELED 0 cells/uL [facility] [place] Comment:Result canceled by t he ancillary Promyelocytes, abs CANCELED 0 cells/uL [facility] [place] Comment:Result canceled by t he ancillary Lymphocytes, abs 2,862 850 - 3,900 cells/uL [facility] [place] Monocyte abs 940 200 - 950 cells/uL [facility] [place] Eosinophils, abs 346 15 - 500 cells/uL [facility] [place] Basophils, abs 76 0 - 200 cells/uL [facility] [place] Blast, cell CANCELED 0 cells/uL [facility] [place] Comment:Result canceled by t he ancillary NRBC abs CANCELED 0 cells/uL [facility] [place] Comment:Result canceled by t he ancillary Neutrophils 60.9 % [facility] [place] Neutrophilic bands CANCELED % [facility] [place] Comment:Result canceled by t he ancillary Metamyelocyte pct CANCELED % [facility] [place] Comment:Result canceled by t he ancillary Myelocyte pct CANCELED % [facility] [place] Comment:Result canceled by t he ancillary Promyelocyte pct CANCELED % [facility] [place] Comment:Result canceled by t he ancillary Lymphocyte pct 26.5 % [facility] [place] Reactive lymph CANCELED 0 - 10 % [facility] [place] Comment:Result canceled by t he ancillary Monocytes 8.7 % [facility] [place] Eosinophils 3.2 % [facility] [place] Basophils 0.7 % [facility] [place] Blast pct CANCELED % [facility] [place] Comment:Result canceled by t he ancillary NRBC CANCELED 0 /100 WBC [facility] [place] Comment:Result canceled by t he ancillary Comment CANCELED [facility] [place] Comment:Result canceled by t he ancillary Blood specimen (specimen) 07/14/2018 3:27 PM CDT 07/14/2018 3:27 PM CDT Narrative Resulting Agency Comment Performing Organization Information: ?Site ID: [id number] ?Name: [facility] ?Address: [address] [place], [place] [address] [address] ?Director: Orion Glynn D.O., MPH us Az Allison MD LAB BLOOD ORDERABLES Final Re sult [facility] [place] Car[place] * (ABNORMAL) Comprehensive metabolic panel (07/14/2018 3:27 PM CDT) Glucose 86 65 - 99 mg/dL [facility] [place] Comment: ? Fasting reference interval BUN 11 7 - 25 mg/dL [facility] [place] Creatinine 1.33 0.60 - 1.35 mg/dL [facility] [place] eGFR NON-AFR. KAZAKH 64 > OR = 60 mL/min/1. 73m2 [facility] [place] EGFR 74 > OR = 60 mL/min/1. 73m2 [facility] [place] BUN/creat ratio NOT APPLICABLE 6 - 22 (calc) [facility] [place] Sodium 139 135 - 146 mmol/L [facility] [place] Potassium, pl 4.2 3.5 - 5.3 mmol/L [facility] [place] Chloride 100 98 - 110 mmol/L [facility] [place] CO2 29 20 - 32 mmol/L [facility] [place] Calcium 9.7 8.6 - 10.3 mg/dL [facility] [place] Protein, sr 6.9 6.1 - 8.1 g/dL [facility] [place] Albumin 4.4 3.6 - 5.1 g/dL [facility] [place] GLOBULIN 2.5 1.9 - 3.7 g/dL (calc) [facility] [place] Alb/glob ratio 1.8 1.0 - 2.5 (calc) [facility] [place] Bilirubin, total 0.6 0.2 - 1.2 mg/dL [facility] [place] Alk phos 50 40 - 115 U/L [facility] AST 36 10 - 40 U/L [facility] [place] ALT (SGPT) 50(H) 9 - 46 U/L [facility] [place] Blood specimen (specimen) 07/14/2018 3:27 PM CDT 07/14/2018 3:27 PM CDT Narrative Resulting Agency Comment Performing Organization Information: ?Site ID: [id number] ?Name: [facility] ?Address: [address] [place], [place] [address] [address] ?Director: Orion Glynn D.O., MPH Az Allison MD LAB BLOOD ORDERABLES Final Re sult [facility] [place] [facility] documented in this encounter Visit Diagnoses Diagnosis Elevated serum creatinine- Primary Other nonspecific findings on examination of blood Hyperglycemia Other abnormal glucose Mild persistent asthma without complication Persistent mood disorder (HCC) Essential hypertension Unspecified essential hypertension documented in this encounter Historical Medications * This list may reflect changes made after this encounter. budesonide-formo terol (SYMBICORT) 160-4.5 mcg/actuation inhaler Inhale 2 puffs 2 (two) times a day. Rinse mouth with water after use to reduce aftertaste and incidence of candidiasis. Do not swallow. Sample provided. 0 added in this encounter Care Teams Laminating Machine Offbearer Relationship Specialty Start Date End Date Az Allison MD [address] [place] [id number] PCP - General 02/22/17 09/19/22 documented as of this encounter
--- OUTSIDE RECORDS SUMMARY | 2024-11-24 10:12 | XMS_ITS | Encounter Summary ---
Author Organization [facility] Address [address] [place] [address] Care Team Providers Care Gyn Name Role Phone Az Allison MD Primary Care Provider [phone] Reason for Visit * Reason Onset Date Comments Lab Results 06/16/2019 Encounter Details Date Type Department Care Team (Late st Contact Info) Description 06/16/2019 Telephone [facility] [address] [place] [address] Paula Bell NP [address] [address] Lab Results Social History Tobacco Use Types Packs/Day Years Used Date Smoking Tobacco: Former Cigarettes 1 24 0 07/14/1990 - 06/25/2014 Smokeless Tobacco: Never Alcohol Use Standard Drinks/Week Comments No 0 (1 standard drink = 0.6 oz pur e alcohol) Sex and Gender Information Value Date Recorded Sex Assigned at Not on file Legal Sex Male 9:12 AM TUBULAR RIVETER Gender Identity Not on file Sexual Orientation Not on file documented as of this encounter Miscellaneous Notes * Telephone Encounter - Tamia Villagran RN - 06/16/2019 9:36 AM CDT Called and spoke to pt. Camille Bell NP comments and recommendations re: lab results. Instructed to try to keep OV with [facility] next month for f/u. Pt verbalized understanding. * Telephone Encounter - Paula Bell NP - 06/16/2019 7:52 AM CDT Notify all labs were WNL. No signs of current dehydration. Liver ALT is slightly only elevated again - we have been watching this. Continue with plan discussed during OV yesterday. Keep upcoming annual next month with Dr. GAONA. documented in this encounter Plan of Treatment Not on file documented as of this encounter Visit Diagnoses Not on filedocumented in this encounter Care Teams Gyn Relationship Specialty Start Date End Date Az Allison MD [address] [place] [address] PCP - General 02/22/17 09/19/22 documented as of this encounter
--- OUTSIDE RECORDS SUMMARY | 2024-11-24 10:12 | XMS_ITS | Encounter Summary ---
Author Organization [facility] Healthcare Address [address] [place] [address] Care Team Providers Care Process Control Engineer Name Role Phone Az Allison MD Primary Care Provider [phone] Reason for Visit * Reason Comments Dehydration Leg Cramps Encounter Details Date Type Department Care Team (Late st Contact Info) Description 06/07/2018 5:36 PM CDT - 06/07/2018 8:32 PM CDT Emergency [facility] Emergency Department [address] [place] [address] Gordo Reed MD [address] [place] [id number] Heat cramp, initial encounter (Primary Dx) Discharge Disposition: Discharge to home or self care Social History Tobacco Use Types Packs/Day Years Used Date Smoking Tobacco: Never Smokeless Tobacco: Never Alcohol Use Standard Drinks/Week Comments No 0 (1 standard drink = 0.6 oz pur e alcohol) Sex and Gender Information Value Date Recorded Sex Assigned at Not on file 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 Gender Identity Not on file Sexual Orientation Not on file documented as of this encounter Last Filed Vital Signs Vital Sign Reading Time Taken Comments Blood Pressure 123/78 06/07/2018 8:28 PM CDT Pulse 68 06/07/2018 8:00 PM CDT Temperature 37.6 ??C (99.7 ??F) 06/07/2018 8:00 PM CD T Respiratory Rate 18 06/07/2018 8:00 PM CDT Oxygen Saturation 95% 06/07/2018 8:00 PM CDT Inhaled Oxygen Concentration - - Weight 113.4 kg (250 lb) 06/07/2018 5:54 PM CDT Height 167.6 cm (5' 6 ) 06/07/2018 5:54 PM CDT Body Mass Index 40.35 06/07/2018 5:54 PM CDT documented in this encounter Discharge Instructions * Attachments The following attachments cannot be sent through Care Everywhere. * Heat Cramps (British) documented in this encounter Medications at Time of Discharge multivitamin (MULTIPLE VITAMINS) tablet tablet take 1 by Oral route daily 0 0 09/06/2016 albuterol HFA (PROVENTIL HFA,VENTOLIN HFA) 90 mcg/actuation inhaler Inhale 2 puffs every 6 (six) hours as needed. [address] (CYMBALTA) 60 mg capsuleIndications :Chronic midline low back pain without sciatica,Persisten t mood disorder (HCC) Take 1 capsule (60 mg total) by mouth daily. 90 capsule 3 02/06/2018 8 lisinopril (PRINIVIL,ZESTRIL) 10 mg tabletIndications: Essential hypertension Take 1 tablet (10 mg total) by mouth daily. 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 Pt wet and cool to touch. With cramps in his legs and hands * Gordo Reed MD - 06/07/2018 5:44 PM CDT HPI Chief Complaint Patient presents with ??? Dehydration ??? 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 Pt reports he became concerned when he suddenly stopped sweating. He came inside and starting drinking fluids when his cramping began. No alleviating factors noted. He had a similar episode approximately 3 weeks ago in which he was not evaluated for. He denies CP, SOB, or vomiting. He has NKDA and takes Metopolol and Cymbalta at home. No further complaints. Pt startedon IV fluids by EMS en route. History provided by: Patient interpreter translator used: No Patient History Patient Active Problem List Diagnosis Date Noted ??? Essential hypertension 02/06/2018 Class: Chronic ??? Elevated serum creatinine 01/23/2015 ??? Steatosis of liver 10/05/2014 Class: Chronic ??? Hyperglycemia 08/25/2014 Class: Chronic ??? Adiposity 08/25/2013 Class: Chronic ??? Mild persistent asthma without complication 08/25/2012 Class: Chronic ??? Chronic obstructive pulmonary disease (CMS/HCC) 02/23/2010 Class: Chronic ??? Low back pain 08/25/2007 Class: Chronic ??? Persistent mood disorder (CMS/HCC) 08/25/1996 Class: Chronic Past Medical History: Diagnosis Date ??? HX OTHER MEDICAL Spinal fusion 2008; Comments: NATALEE 10/04/2014 - ??? HX OTHER MEDICAL Shoulder 2001; Comments: JSHANI 10/04/2014 - ??? HX OTHER MEDICAL Rt. carpal tunnel release 2013.; Comments: JSHANI 10/19/2014 - Past Surgical History: Procedure Laterality Date ??? CARPAL TUNNEL RELEASE Bilateral 2013 Dr. [...] Stomach cancer Father ??? Kidney cancer Father Social History Substance Use Topics ??? Smoking status: Never Smoker ??? Smokeless tobacco: Never Used ??? Alcohol use No Social History Social History Narrative ??? No narrative on file Review of Systems Review of Systems Constitutional: Negative for chills, fatigue and fever. HENT: Negative for congestion, ear pain, rhinorrhea, sneezing and sore throat. Respiratory: Negative for cough, shortness of breath and wheezing. Cardiovascular: Negative for chest pain and palpitations. Gastrointestinal: Positive for nausea. Negative for abdominal pain, constipation, diarrhea and vomiting. Musculoskeletal: + Diffuse muscle cramps Skin: Negative for color change, pallor, rash and wound. Neurological: Positive for light-headedness. Negative for dizziness, syncope, weakness and headaches. All other systems reviewed and are negative. Physical Exam ED Triage Vitals Temp Pulse Resp BP SpO2 -- -- -- -- -- Temp src Heart Rate Source Patient Position BP Location FiO2 (%) -- -- -- -- -- Physical Exam Constitutional: He is oriented to person, place, and time. He appears well- developed and well-nourished. No distress. HENT: Head: Normocephalic and atraumatic. Mouth/Throat: Oropharynx is clear and moist. Eyes: Conjunctivae and EOM are normal. Neck: Normal range of motion. Neck supple. Cardiovascular: Normal rate, regular rhythm, normal heart sounds and intact distal pulses. Exam reveals no gallop and no friction rub. No murmur heard. Pulmonary/Chest: Effort normal and breath sounds normal. No respiratory distress. He has no wheezes. He has no rales. Abdominal: Soft. He exhibits no distension. There is no tenderness. There is no rebound and no guarding. Musculoskeletal: Normal range of motion. He exhibits no edema, tenderness or deformity. Neurological: He is alert and oriented to person, place, and time. Skin: Capillary refill takes less than 2 seconds. No rash noted. No erythema. No pallor. Skin warm and moist Psychiatric: He has a normal mood and affect. His behavior is normal. Nursing note and vitals reviewed. MDM MDM Number of Diagnoses or Management Options Amount and/or Complexity of Data Reviewed Clinical lab tests: ordered and reviewed Tests in the medicine section of CPT??: ordered and reviewed Obtain history from someone other than the patient: yes Risk of Complications, Morbidity, and/or Mortality Presenting problems: moderate Diagnostic procedures: moderate Management options: moderate Patient Progress Patient progress: stable Labs Reviewed CBC WITH AUTO DIFFERENTIAL - Abnormal Result Value WBC 18.8 (*) Hgb 19.1 (*) Hct 55.0 (*) Plt 296 MPV 9.9 RBC 6.76 (*) MCV 81.4 MCH 28.3 MCHC 34.7 RDW CV 17.0 (*) RDW SD 45.0 NRBC Abs 0.00 Narrative: COMPREHENSIVE METABOLIC PANEL - Abnormal Sodium 135 Potassium, pl 4.0 Chloride 95 (*) CO2 24 Anion Gap 16 (*) BUN 17 Creatinine 2.19 (*) Glucose 137 Calcium 9.3 Bilirubin, total 0.6 Protein, pl 6.8 Albumin 4.2 Alk phos 57 ALT 35 AST 32 Narrative: DIFFERENTIAL AUTO - Abnormal Neutrophil absolute 15.2 (*) Immature granulocyte absolute 0.1 Lymphocytes absolute 2.0 Monocyte absolute 1.3 (*) Eosinophils absolute 0.1 Basophils, abs 0.1 Neutrophils 81.0 Immature granulocytes 0.5 Lymphocytes 10.6 Monocytes 6.8 Eosinophils 0.6 Basophils 0.5 Narrative: EGFR GFR 35 Narrative: MANUAL DIFFERENTIAL Differential Auto RBC morphology Consistent with RBC Indicies Platelet estimate Adequate Narrative: No orders to display Ht 167.6 cm (5' 6 ) Wt 113.4 kg (250 lb) BMI 40.35 kg/m?? Procedures Heat cramp, initial encounter IDelmi, am scribing for and in the presence of Dr. Brianna MD. I electronically signedthis document at 7:38 PM on 06/07/18 I, Gordo Reed MD, have personally performed the services described in the documentation, reviewed the documentation, as recorded by the scribe in my presence, and it accurately and completely records my words and actions. Gordo Reed MD 06/07/181937 documented in this encounter Plan of Treatment Not on file documented as of this encounter Procedures Procedure Name Priority Date/Time Associated Diagnosis Comments EGFR STAT 06/07/2018 6:07 PM CDT DIFFERENTIAL AUTO STAT 06/07/2018 6:0 7 PM CDT CBC WITH AUTO DIFFERENTIAL STAT 06/07/2018 6:07 PM CDT MANUAL DIFFERENTIAL STAT 06/07/2018 6 :07 PM CDT COMPREHENSIVE METABOLIC PANEL STAT 06/07/2018 6:07 PM CDT documented in this encounter Results * Manual Differential (06/07/2018 6:07 PM CDT) Differential Auto [facility] ([facility]) RBC morphology Consistent with RBC Indicies [facility] ([facility]) Platelet estimate Adequate [facility] ([facility]) Blood specimen (specimen) 06/07/2018 6:07 PM CDT 06/07/2018 6:10 PM CDT Narrative [facility] ([facility]) - 06/07/2018 6:51 PM CDT us Gordo Reed MD LAB BLOOD ORDERABLES Fi nal Result [facility] (MARY) 1 [facility] Department [place] [address] * eGFR (06/07/2018 6:07 PM CDT) Pathologist [facility] eGFR 35 mL/min/1.7 3 m2 [facility] ([facility]) Comment: Interpretive Data Reference Interval Normal ?>/= 90 mL/min/1.73m2 Mildly decreased* ? 60 - 89 mL/min/1.73m2 Mildly to moderately decreased ?45 - 59 mL/min/1.73m2 Moderately to severely decreased ??30 - 44 mL/min/1.73m2 Severely decreased ?15 - 29 mL/min/1.73m2 Kidney Failure ?< 15 ??mL/min/1.73m2 *Relative to young adult level If -[place] multiply value by 1.16. Estimated glomerular filtration rate is determined by the CKD-EPI equation recommended by the National Kidney Foundation (KDIGO 2012 Clinical Practice Guideline for the Evaluation and Management of Chronic Kidney Disease. Kidney Intnl Suppl Nov 2012;3:1). The CKD-EPI equation should not be used for patients with unstable renal function and has not been validated in children and those over 70. Current interpretive data was last reviewed 2016. Blood specimen (specimen) 06/07/2018 6:07 PM CDT 06/07/2018 6:10 PM CDT Narrative [facility] ([facility]) - 06/07/2018 6:28 PM CDT Gordo Reed MD LAB BLOOD ORDERABLES Fi nal Result [facility] ([place]) 1 [facility] Department [place] [address] * (ABNORMAL) Differential, auto (06/07/2018 6:07 PM CDT) Neutrophil abs 15.2(H) 1.7 - 6.5 K/cumm [facility] ([facility]) Imm gran abs 0.1 0.0 - 0.1 K/cumm [facility] ([facility]) Lymphocyte abs 2.0 0.8 - 3.3 K/cumm [facility] ([facility]) Monocyte abs 1.3(H) 0.2 - 0.8 K/cumm [facility] ([facility]) Eosinophil abs 0.1 0.0 - 0.5 K/cumm [facility] ([facility]) Basophil abs 0.1 0.0 - 0.1 K/cumm [facility] ([facility]) Neutrophil pct 81.0 % [facility] ([facility]) Comment: Interpretive Data Percent cell count reference ranges are not reported, since discordance with absolute values may lead to misinterpretation of CBC data. Current Interpretive Data was last revised on 2018. Imm gran pct 0.5 % [facility] ([facility]) Comment: Interpretive Data Percent cell count reference ranges are not reported, since discordance with absolute values may lead to misinterpretation of CBC data. Current Interpretive Data was last revised on 2018. Lymphocyte pct 10.6 % [facility] ([facility]) Comment: Interpretive Data Percent cell count reference ranges are not reported, since discordance with absolute values may lead to misinterpretation of CBC data. Current Interpretive Data was last revised on 2018. Monocyte pct 6.8 % [facility] ([facility]) Comment: Interpretive Data Percent cell count reference ranges are not reported, since discordance with absolute values may lead to misinterpretation of CBC data. Current Interpretive Data was last revised on 2018. Eosinophil pct 0.6 % [facility] ([facility]) Comment: Interpretive Data Percent cell count reference ranges are not reported, since discordance with absolute values may lead to misinterpretation of CBC data. Current Interpretive Data was last revised on 2018. Basophil pct 0.5 % [facility] ([facility]) Comment: Interpretive Data Percent cell count reference ranges are not reported, since discordance with absolute values may lead to misinterpretation of CBC data. Current Interpretive Data was last revised on 2018. Blood specimen (specimen) 06/07/2018 6:07 PM CDT 06/07/2018 6:10 PM CDT Narrative [facility] ([facility]) - 06/07/2018 6:51 PM CDT us Gordo Reed MD LAB BLOOD ORDERABLES Fi nal Result [facility] ([place]) 1 [facility] Department of Laboratories [place], [place] [id number] * (ABNORMAL) Comprehensive metabolic panel (06/07/2018 6:07 PM CDT) Sodium 135 135 - 145 mmol/L [facility] ([place]) Potassium, pl 4.0 3.3 - 4.9 mmol/L [facility] ([place]) Chloride 95(L) 97 - 110 mmol/L [facility] ([facility]) CO2 24 22 - 32 mmol/L [facility] ([facility]) Anion gap 16(H) 2 - 15 mmol/L [facility] ([facility]) BUN 17 8 - 25 mg/dL [facility] ([facility]) Creatinine 2.19(H) 0.80 - 1.30 mg/dL [facility] ([facility]) Glucose 137 70 - 199 mg/dL [facility] ([facility]) Comment: Interpretive Data Fasting glucose >/= 126 mg/dl is diagnostic for diabetes. ?? Fasting is defined as no caloric intake for at least 8 hours. Fasting glucose between 100 mg/dl to 125 mg/dl is diagnostic of prediabetes. In a patient with classic symptoms of hyperglycemia or hyperglycemic crisis, a random glucose >/= 200 mg/dl is diagnostic for diabetes. In the absence of unequivocal hyperglycemia, results should be confirmed by repeat testing. The classification and Diagnosis of Diabetes Diabetes Care 2017;40 (Suppl. 1):S11. Current interpretive data was last revised 2017. Calcium 9.3 8.5 - 10.3 mg/dL [facility] ([facility]) Bilirubin, total 0.6 0.1 - 1.2 mg/dL [facility] ([facility]) Protein, pl 6.8 6.5 - 8.5 g/dL [facility] ([facility]) Albumin 4.2 3.5 - 5.0 g/dL [facility] ([facility]) Alk phos 57 40 - 130 Units/L [facility] ([facility]) ALT 35 7 - 55 Units/L [facility] ([facility]) AST 32 10 - 50 Units/L [facility] ([facility]) Blood specimen (specimen) 06/07/2018 6:07 PM CDT 06/07/2018 6:10 PM CDT Narrative [facility] ([facility]) - 06/07/2018 6:28 PM CDT us Gordo Reed MD LAB BLOOD ORDERABLES Fi nal Result [facility] ([facility]) 1 [facility] Department [place] [address] * (ABNORMAL) CBC with auto differential (06/07/2018 6:07 PM CDT) WBC 18.8(H) 3.8 - 9.9 K/cumm [facility] ([facility]) Hgb 19.1(H) 13.0 - 17.5 g/dL [facility] ([facility]) Hct 55.0(H) 38.9 - 50.3 % [facility] ([facility]) Plt 296 150 - 400 K/cumm [facility] ([facility]) MPV 9.9 9.1 - 12.3 fL [facility] ([facility]) RBC 6.76(H) 4.30 - 5.80 M/cumm [facility] ([facility]) MCV 81.4 81.3 - 96.4 fL [facility] ([facility]) MCH 28.3 27.1 - 33.3 pg [facility] ([facility]) MCHC 34.7 32.3 - 35.7 g/dL [facility] ([facility]) RDW CV 17.0(H) 11.1 - 14.9 % [facility] ([facility]) RDW SD 45.0 35.7 - 48.1 fL [facility] ([facility]) NRBC abs 0.00 0.00 - 0.01 K/cumm [facility] ([facility]) Blood specimen (specimen) 06/07/2018 6:07 PM CDT 06/07/2018 6:10 PM CDT Narrative [facility] ([facility]) - 06/07/2018 6:51 PM CDT us Gordo Reed MD LAB BLOOD ORDERABLES Fi nal Result [facility] ([facility]) 1 [facility] Department of Laboratories [place], [place] [id number] documented in this encounter Visit Diagnoses Diagnosis Heat cramp, initial encounter- Primary documented in this encounter Administered Medications Inactive Administered Medications - up to 3 most recent administrations Medication Order MAR Action Action Date Dose Rate Site sodium chloride 0.9% bolus 1,000 mL 1,000 mL, intravenous, at 1,000 mL/hr, Administer over 1 Hours, Once, On 06/07/18 at 1753, For 1 dose New Bag 06/07/2018 5:15 PM CDT 1,000 mL 100 0 mL/hr sodium chloride 0.9% bolus 1,000 mL 1,000 mL, intravenous, at 1,000 mL/hr, Administer over 1 Hours, Once, On 06/07/18 at 1832, For 1 dose New Bag 06/07/2018 6:32 PM CDT 1,000 mL 100 0 mL/hr documented in this encounter Active and Recently Administered Medications Times are shown in CDT. Scheduled Medication Order 06/05/2018 06/06/2018 06/07/2018 sodium chloride 0.9% bolus 1,000 mL (COMPLETED) 1,000 mL, intravenous, at 1,000 mL/hr, Administer over 1 Hours, Once, On 06/07/18 at 1753, For 1 dose 1715 (New Bag - Prov ider: Mike Eduardo RN)1815 (Stopped - Provider: Mike Eduardo RN) sodium chloride 0.9% bolus 1,000 mL (COMPLETED) 1,000 mL, intravenous, at 1,000 mL/hr, Administer over 1 Hours, Once, On 06/07/18 at 1832, For 1 dose 1832 (New Bag - Prov ider: Mike Eduardo RN)1932 (Due: Stopped - Provider: Mike Eduardo RN)2028 (Stopped - Provider: Crescencio Mcguire RN) documented in this encounter Orders Medications Ordered That Rolo ht Not Have Been Administered Count Last Ordered Date First Ordered Date LORazepam (ATIVAN) injection 1 mg 1 018 sodium chloride 0.9% bolus 1,000 mL 1 06/07 IV Count Last Ordered Date First Orde red Date SALINE LOCK IV 1 06/07/2018 documented in this encounter Care Teams Process Control Engineer Relationship Specialty Start Date End Date Az Allison MD [address] [place] [address] PCP - General 02/22/17 09/19/22 documented as of this encounter
--- OUTSIDE RECORDS SUMMARY | 2024-11-24 10:12 | XMS_ITS | Encounter Summary ---
Author Organization [facility] Healthcare Address [address] [place] [address] Care Team Providers Care Loan Operations Specialist Name Role Phone Az Allison MD Primary Care Provider [phone] Encounter Details Date Type Department Care Team (Latest Contact Info) Description 06/07/2018 5:06 PM CDT - 06/07/2018 11:59 PM CDT Hospital Encounter [facility] Discharge Disposition: Discharge to home or self care Social History Tobacco Use Types Packs/Day Years Used Date Smoking Tobacco: Never Smokeless Tobacco: Never Alcohol Use Standard Drinks/Week Comments No 0 (1 standard drink = 0.6 oz pur e alcohol) Sex and Gender Information Value Date Recorded Sex Assigned at Not on file 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
--- OUTSIDE RECORDS SUMMARY | 2024-11-24 10:12 | XMS_ITS | Encounter Summary ---
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
--- OUTSIDE RECORDS SUMMARY | 2024-11-24 10:12 | XMS_ITS | Encounter Summary ---
Author Organization [facility] Address [address] [email or web address] [address] Phone Care Team Providers Care Gauger Chief Delivery Name Role Phone Az Allison MD Primary Care Provider [phone] Encounter Details Date Type Department Care Team (Late st Contact Info) Description 01/20/2018 [facility]phone [facility] [address] [email or web address] [address] Az Allison MD [address] [address] Social History Tobacco Use Types Packs/Day Years Used Date Smoking Tobacco: Never Assessed Sex and Gender Information Value Date Recorded Sex Assigned at Not on file 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 30 capsule 01/21/2018 8 documented in this encounter Miscellaneous Notes * Telephone Encounter - Sofia Sanders MA - 01/21/2018 9:37 AM CST Medication sent and medication updated. Patient transferred to [facility] to make an appointment. GER CONTENT * Telephone Encounter - Az Allison MD - 01/20/2018 10:45 PM CST OK to refill Cymbalta as requested, but he needs to make and keep an appointment in the next 3 months. Also please review other meds on his list as some of them have probably expried, e.g. Doxycycline. GER CONTENT * Telephone Encounter - Sofia Sanders MA - 01/20/2018 3:55 PM CST Ok to refill Cymbalta? Patient has not been seen since 02/14/17 and has no upcoming appointments. GER CONTENT * Telephone Encounter - Kenia Hancock - 01/20/2018 2:24 PM CST Pt needs a refill on Cymbalta William rogers. [phone] patient GER CONTENT documented in this encounter Plan of Treatment Not on file documented as of this encounter Visit Diagnoses Not on filedocumented in this encounter Discontinued Medications Medication Sig Discontinue Reason Start Date End Da te fluticasone-vilanterol (BREO ELLIPTA) 100-25 mcg/dose blister with device inhale 1 puff by inhalation route every day at the same time each day 02/26/2017 01/21/2018 doxycycline (doxycycline) 100 mg capsule take 1 tablet by oral route 2 times every day 02/26/2017 01/21/2018 albuterol HFA (VENTOLIN HFA) 90 mcg/actuation inhaler inhale 2 puff by inhalation route every 4 - 6 hours as needed 02/14/2017 01/21/[address] (CYMBALTA) 60 mg capsule take 1 capsule by oral route every day Reorder 09/06/2016 01/21/2018 documented as of this encounter Care Teams Gauger Chief Delivery Relationship Specialty Start Date End Date Az Allison MD [address] [place] [address] PCP - General 02/22/17 09/19/22 documented as of this encounter
--- OUTSIDE RECORDS SUMMARY | 2024-11-24 10:12 | XMS_ITS | Encounter Summary ---
Author Organization [facility] Medical Group Address [address] [facility] [address] [place] [address] Care Team Providers Care Manager Shift Name Role Phone Az Allison MD Primary Care Provider [phone] Reason for Visit * Diagnostic Imaging (Routine) - Closed Specialty Diagnoses / Procedures Referred By Monster blackwell Referred To Contact Diagnoses Cough Procedures XR Chest Pa Lateral 2 Vw Paula Bell NP Phone: tel: fax: [facility] Referral ID Status Reason Start Date Expiration Date Visits Re quested Visits Authorized [id number] Closed 02/25/2019 09/05/2020 1 1 Encounter Details Date Type Department Care Team (Latest Contact Info) Description 02/25/2019 2:00 PM CDT Ancillary Procedure [facility] [address] [place] [address] Cough Social History Tobacco Use Types Packs/Day Years Used Date Smoking Tobacco: Former Cigarettes 1 24 0 07/14/1990 - 06/25/2014 Smokeless Tobacco: Never Alcohol Use Standard Drinks/Week Comments No 0 (1 standard drink = 0.6 oz pur e alcohol) Sex and Gender Information Value Date Recorded Sex Assigned at Not on file 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 Gender Identity Not on file Sexual Orientation Not on file documented as of this encounter Plan of Treatment Not on file documented as of this encounter Procedures Procedure Name Priority Date/Time Associated Diagnosis Comments XR CHEST PA LATERAL 2 VIEWS Schedule LELE, Read LELE (Appt Today, Awaiting Results) 02/25/2019 2:05 PM CDT Cough documented in this encounter Results * XR Chest Pa Lateral 2 Vw (02/25/2019 2:05 PM CDT) Anatomical Region Laterality Modality Body, Chest N/A Computed Radiogr aphy Narrative 02/25/2019 3:00 PM CDT CHEST, 2 VIEWS: PA and lateral views of the chest reveal clear lungs without radiographic evidence of pleural effusion or pneumothorax. ??The cardiac and mediastinal structures are of normal size. ?? No change as compared to prior study of 02/14/2017. SUMMARY: No radiographic evidence of pulmonary disease. us Paula Bell CASTING AND LOCKER ROOM SERVICER IMG XR PROCEDURES Final Res ult documented in this encounter Visit Diagnoses Diagnosis Cough documented in this encounter Care Teams Manager Shift Relationship Specialty Start Date End Date Az Allison MD [address]EN [address] [place] [address] PCP - General 02/22/17 09/19/22 documented as of this encounter
--- OUTSIDE RECORDS SUMMARY | 2024-11-24 10:12 | XMS_ITS | Encounter Summary ---
Author Organization [facility] Facility Care Team Providers Care Ecommerce Analyst Name Role Phone Unavailable Primary Care Provider Unavailabl e Encounter Details Date Type Department Care Team (Late st Contact Info) Description 12/30/2007 9:34 AM NURSERY TECHNICIAN - 01/18/2008 12:01 AM NURSERY TECHNICIAN Hospital Encounter [facility] [place] [address] [address] Social History Tobacco Use Types Packs/Day Years Used Date Smoking Tobacco: Never Assessed Sex and Gender Information Value Date Recorded Sex Assigned at Not on file 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
--- OUTSIDE RECORDS SUMMARY | 2024-11-24 10:12 | XMS_ITS | Encounter Summary ---
Author Organization [facility] Healthcare Address [address] [place] [address] Care Team Providers Care Hydro Operator Name Role Phone Az Allison MD Primary Care Provider [phone] Encounter Details Date Type Department Care Team (Late st Contact Info) Description 06/15/2019 7:30 PM CDT Lab [address] [address] Fatigue, unspecified type; Heat exhaustion, initial encounter Social History Tobacco Use Types Packs/Day Years Used Date Smoking Tobacco: Former Cigarettes 1 24 0 07/14/1990 - 06/25/2014 Smokeless Tobacco: Never Alcohol Use Standard Drinks/Week Comments No 0 (1 standard drink = 0.6 oz pur e alcohol) Sex and Gender Information Value Date Recorded Sex Assigned at Not on file 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 Gender Identity Not on file Sexual Orientation Not on file documented as of this encounter Plan of Treatment Not on file documented as of this encounter Procedures Procedure Name Priority Date/Time Associated Diagnosis Comments EGFR Routine 06/15/2019 3:10 PM CDT Fatigue, unspecified type Heat exhaustion, initial encounter DIFFERENTIAL AUTO Routine 06/15/2019 3:1 0 PM CDT Fatigue, unspecified type Heat exhaustion, initial encounter URINALYSIS AND REFLEX TO MICROSCOPIC Routine 06/15/2019 3:10 PM CDT Fatigue, unspecified type Heat exhaustion, initial encounter CBC WITH AUTO DIFFERENTIAL Routine 06/15/2019 3:10 PM CDT Fatigue, unspecified type Heat exhaustion, initial encounter CREATINE KINASE (CK), TOTAL Routine 06/15/2019 3:10 PM CDT Fatigue, unspecified type Heat exhaustion, initial encounter COMPREHENSIVE METABOLIC PANEL Routine 06/15/2019 3:10 PM CDT Fatigue, unspecified type Heat exhaustion, initial encounter documented in this encounter Results * eGFR (06/15/2019 3:10 PM CDT) [facility] Signature eGFR 82 mL/min/1.7 3 m2 NAYANA MASTERSON Comment: Interpretive Data Reference Interval Normal ?>/= 90 mL/min/1.73m2 Mildly decreased* ? 60 - 89 mL/min/1.73m2 Mildly to moderately decreased ?45 - 59 mL/min/1.73m2 Moderately to severely decreased ??30 - 44 mL/min/1.73m2 Severely decreased ?15 - 29 mL/min/1.73m2 Kidney Failure ?< 15 ??mL/min/1.73m2 *Relative to young adult level If -[place] multiply value by 1.16. Estimated glomerular filtration [...] was last reviewed 2016. Blood specimen (specimen) 06/15/2019 3:10 PM CDT 06/15/2019 9:15 PM CDT Paula Bell PHYSICAL THERAPIST AIDE LAB BLOOD ORDERABLES Final Result [facility] [address] Department [place] [address] * Differential, auto (06/15/2019 3:10 PM CDT) Neutrophil abs 6.0 1.7 - 6.5 K/cumm [facility] Imm gran abs 0.0 0.0 - 0.1 K/cumm [facility] Lymphocyte abs 2.9 0.8 - 3.3 K/cumm [facility] Monocyte abs 0.6 0.2 - 0.8 K/cumm [facility] Eosinophil abs 0.3 0.0 - 0.5 K/cumm [facility] Basophil abs 0.1 0.0 - 0.1 K/cumm [facility] Neutrophil pct 60.7 % [facility] Comment: Interpretive Data Percent cell count reference ranges are not reported, since discordance with absolute values may lead to misinterpretation of CBC data. Current Interpretive Data was last revised on 2018. Imm gran pct 0.5 % [facility] Comment: Interpretive Data Percent cell count reference ranges are not reported, since discordance with absolute values may lead to misinterpretation of CBC data. Current Interpretive Data was last revised on 2018. Lymphocyte pct 28.9 % [facility] Comment: Interpretive Data Percent cell count reference ranges are not reported, since discordance with absolute values may lead to misinterpretation of CBC data. Current Interpretive Data was last revised on 2018. Monocyte pct 6.4 % [facility] Comment: Interpretive Data Percent cell count reference ranges are not reported, since discordance with absolute values may lead to misinterpretation of CBC data. Current Interpretive Data was last revised on 2018. Eosinophil pct 2.9 % [facility] Comment: Interpretive Data Percent cell count reference ranges are not reported, since discordance with absolute values may lead to misinterpretation of CBC data. Current Interpretive Data was last revised on 2018. Basophil pct 0.6 % [facility] Comment: Interpretive Data Percent cell count reference ranges are not reported, since discordance with absolute values may lead to misinterpretation of CBC data. Current Interpretive Data was last revised on 2018. Blood specimen (specimen) 06/15/2019 3:10 PM CDT 06/15/2019 8:42 PM CDT us Paula Bell NP LAB [place]LO[place] [address] [address] Department [place] [address] * (ABNORMAL) Comprehensive metabolic panel (06/15/2019 3:10 PM CDT) Sodium 140 135 - 145 mmol/L [facility] Potassium, pl 4.5 3.3 - 4.9 mmol/L [facility] Chloride 100 97 - 110 mmol/L [facility] CO2 25 22 - 32 mmol/L [facility] Anion gap 15 2 - 15 mmol/L [facility] BUN 14 8 - 25 mg/dL [facility] Creatinine 1.07 0.80 - 1.30 mg/dL [facility] Glucose 104 70 - 199 mg/dL [facility] Comment: Interpretive Data Fasting glucose >/= 126 [...] interpretive data was last revised 2017. Calcium 9.6 8.5 - 10.3 mg/dL [facility] Bilirubin, total 0.3 0.1 - 1.2 mg/dL [facility] Protein, pl 7.4 6.5 - 8.5 g/dL [facility] Albumin 4.7 3.5 - 5.0 g/dL [facility] Alk phos 60 40 - 130 Units/L [facility] ALT 58(H) 7 - 55 Units/L [facility] AST 40 10 - 50 Units/L [facility] Blood specimen (specimen) 06/15/2019 3:10 PM CDT 06/15/2019 8:42 PM CDT us Paula Bell PHYSICAL THERAPIST AIDE LAB BLOOD ORDERABLES Final Result Performing Organization Address City/[facility]/ZIP Co de Phone Number NAYANA MASTERSON [address] [place] [address] * (ABNORMAL) CBC with auto differential (06/15/2019 3:10 PM CDT) WBC 10.0(H) 3.8 - 9.9 K/cumm [facility] Hgb 14.5 13.0 - 17.5 g/dL [facility] Hct 44.2 38.9 - 50.3 % [facility] Plt 334 150 - 400 K/cumm [facility] MPV 10.9 9.1 - 12.3 fL [facility] RBC 4.93 4.30 - 5.80 M/cumm [facility] MCV 89.7 81.3 - 96.4 fL [facility] MCH 29.4 27.1 - 33.3 pg [facility] MCHC 32.8 32.3 - 35.7 g/dL [facility] RDW CV 13.2 11.1 - 14.9 % [facility] RDW SD 43.7 35.7 - 48.1 fL [facility] NRBC abs 0.00 0.00 - 0.01 K/cumm [facility] Blood specimen (specimen) 06/15/2019 3:10 PM CDT 06/15/2019 8:42 PM CDT us Paula Bell NP LAB BLOOD ORDERABLES Final Result Performing Organization Address City/[facility]/ZIP Co de Phone Number NAYANA MASTERSON [address] [place] [address] * Creatine kinase (CK), total (06/15/2019 3:10 PM CDT) CK 166 40 - 300 Units/L [facility] Blood specimen (specimen) 06/15/2019 3:10 PM CDT 06/15/2019 8:42 PM CDT us Paula Bell PHYSICAL THERAPIST AIDE LAB BLOOD ORDERABLES Final Result Performing Organization Address [facility] de Phone Number NAYANA MASTERSON [address] [employer] [place] [address] * Urinalysis reflex to microscopic (06/15/2019 3:10 PM CDT) Color, ur Yellow Yellow [facility] Clarity, ur Clear Clear [facility] Specific gravity, ur 1.015 1.010 - 1.025 [facility] pH, urine 5.0 [facility] Protein, ur ql Negative Negative [facility] Glucose, ur ql Negative Negative [facility] Ketones, ur Negative Negative [facility] Bilirubin, ur Negative Negative [facility] Blood, ur Negative Negative [facility] Urobilinogen, ur <2.0 <2.0 mg/dL [facility] Nitrite, ur Negative Negative [facility] Leukocyte esterase, ur Negative Negative [facility] Urine 06/15/2019 3:10 PM CDT 06/15/2019 8:42 PM CDT Narrative [facility] - 06/15/2019 8:54 PM CDT ?? Urine pH is affected by diet, medications, systemic acid-base disturbances, and renal tubular function. ??pH may affect urinary stone formation. ??For example, urine pH below 6.0 may help reduce the tendency for calcium phosphate stones and pH greater than 6.0 may reduce the tendency for uric acid stone formation. Source: [facility] [place]. Last revised 12-05-2017 Paula Bell NP LAB URINE ORDERABLES Final Result Performing Organization Address [facility] Co de Phone Number NAYANA MASTERSON [address] [place] [address] documented in this encounter Visit Diagnoses Diagnosis Fatigue, unspecified type Heat exhaustion, initial encounter documented in this encounter Care Teams Hydro Operator Relationship Specialty Start Date End Date Az Allison MD [address] [place] [address] PCP - General 02/22/17 09/19/22 documented as of this encounter
--- OUTSIDE RECORDS SUMMARY | 2024-11-24 10:12 | XMS_ITS | Encounter Summary ---
Author Organization [facility] Medical Group Address [address] [facility] [address] [place] [address] Care Team Providers Care Cargo Tank Mechanic Name Role Phone Az Allison MD Primary Care Provider [phone] Reason for Visit * Reason Onset Date Comments xray results 02/25/2019 Encounter Details Date Type Department Care Team (Late st Contact Info) Description 02/25/2019 Telephone [facility] [address] [place] [address] Paula Bell NP [address] [address] xray results Social History Tobacco Use Types Packs/Day Years Used Date Smoking Tobacco: Former Cigarettes 1 24 0 07/14/1990 - 06/25/2014 Smokeless Tobacco: Never Alcohol Use Standard Drinks/Week Comments No 0 (1 standard drink = 0.6 oz pur e alcohol) Sex and Gender Information Value Date Recorded Sex Assigned at Not on file 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 Discussed CXR results and recommendations per Shahram Bell NP. Pt verbalized understanding. Instructed to call if symptoms persist past 14 days or worsen. * Telephone Encounter - Paula Bell NP - 02/25/2019 3:33 PM CDT Notify him that his CXR shows no pneumonia (per radiologist). Believe this to be viral illness - symptom treatment recommended. Continue with plan on AVS - recommend albuterol use routinely 3 times daily for the next 3 days forthe coughing. Cbn: [phone] documented in this encounter Plan of Treatment Not on file documented as of this encounter Visit Diagnoses Not on filedocumented in this encounter Care Teams Cargo Tank Mechanic Relationship Specialty Start Date End Date Az Allison MD [address] [place] [address] PCP - General 02/22/17 09/19/22 documented as of this encounter
--- OUTSIDE RECORDS SUMMARY | 2024-11-24 10:12 | XMS_ITS | Encounter Summary ---
Author Organization [facility] Facility Care Team Providers Care Rotary Drill Rig Operator Name Role Phone Az lAlison MD Primary Care Provider [phone] Encounter Details Date Type Department Care Team (Latest Contact Info) Description 06/15/2019 Travel Social History Tobacco Use Types Packs/Day Years Used Date Smoking Tobacco: Former Cigarettes 1 24 0 07/14/1990 - 06/25/2014 Smokeless Tobacco: Never Alcohol Use Standard Drinks/Week Comments No 0 (1 standard drink = 0.6 oz pur e alcohol) Sex and Gender Information Value Date Recorded Sex Assigned at Not on file Legal Sex Male 9:12 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
--- OUTSIDE RECORDS SUMMARY | 2024-11-24 10:12 | XMS_ITS | Encounter Summary ---
Author Organization [facility] Address [address] [facility] [address] [place] [id number] Care Team Providers Care Fish Seiner Name Role Phone Az Allison MD Primary Care Provider [phone] Reason for Referral * Consultation (Routine) - Closed Specialty Diagnoses / Procedures Referred By Monster blackwell Referred To Contact General Surgery Diagnoses Skin lesion Az Allison MD Phone: tel: fax: Joaquim Denise MD [address] [place] [address] [address] Phone: tel: fax: Referral ID Status Reason Start Date Expiration Date V isits Requested Visits Authorized [id number] Closed Specialty Services Required 07/17/2019 01/25/2021 1 1 Question Answer Please select the performing region: [facility] [[id number]] Please select the performing department: [facility] [[id number]] To provider: JOAQUIM DENISE [[id number]] # of visits: 1 * Diagnostic Imaging (Routine) - Closed Specialty Diagnoses / Procedures Referred By Monster blackwell Referred To Contact Diagnoses Chronic coronary artery disease Steatosis of liver Procedures US Liver Az Allison MD Phone: tel: fax: [facility] Referral ID Status Reason Start Date Expiration Date Visits Re quested Visits Authorized [id number] Closed 07/17/2019 01/25/2021 1 1 Encounter Details Date Type Department Care Team (Late st Contact Info) Description 07/17/2019 2:40 PM CDT Office Visit [facility] [address] [place] [address] Az Allison MD [address] [place] [address] Annual visit for general adult medical examination with abnormal findings (Primary Dx); Chronic obstructive pulmonary disease, unspecified COPD type (CMS/HCC); Essential hypertension; Chronic coronary artery disease; Mild persistent asthma without complication; Non morbid obesity; Persistent mood disorder (CMS/HCC); Steatosis of liver; Other fatigue; Sleep disorder, unspecified; Skin lesion; Sleep apnea, unspecified type Social History Tobacco Use Types [...] on file 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 Gender Identity Not on file Sexual Orientation Not on file documented as of this encounter Last Filed Vital Signs Vital Sign Reading Time Taken Comments Blood Pressure 134/78 07/17/2019 2:42 PM CDT Pulse 60 07/17/2019 2:42 PM CDT Temperature 36.7 ??C (98.1 ??F) 07/17/2019 2:42 PM CD T Respiratory Rate 20 07/17/2019 2:42 PM CDT Oxygen Saturation 97% 07/17/2019 2:42 PM CDT Inhaled Oxygen Concentration - - Weight 116.1 kg (256 lb) 07/17/2019 2:42 PM CDT Height 167.6 cm (5' 6 ) 07/17/2019 2:42 PM CDT Body Mass Index 41.32 07/17/2019 2:42 PM CDT documented in this encounter Patient Instructions * Patient Instructions* Az Allison MD - 07/17/2019 2:40 PM CDT order desk clerk will order labs for fatigue and steatohepatitis and CAD ( Lipids, B12, CBC, TSH, testosterone, HepBcAbtotal, HepBsAb, HepBsAg, HepCAb, iron profile, ferritin, TRISTA, anti-smooth muscle antibody and ultrasound of liver. order desk clerk will arrange for a referral to surgery for removal of an irritated skin tag on left upper posterior thigh. order desk clerk will order a sleep study. Continue to work on your weight. Pneumonia shot (Prevnar-13) and measles booster (MMR) ordered. Keep preventive care up to date, see brochure. Follow up annually or sooner as needed. documented in this encounter Ordered Prescriptions Prescription Sig Dispense Quantity Refills Last Filled Start Date End Date losartan (COZAAR) 100 mg tabletIndications: Essential hypertension Take 1 tablet (100 mg total) by mouth daily 90 tablet 3 07/17/2019 04/20/2020 documented in this encounter Progress Notes * Az Allison MD - 07/17/2019 2:40 PM CDT Problem List Items Addressed This Visit Respiratory Mild persistent asthma without complication (Chronic) Continue current therapy as discussed elsewhere. Chronic obstructive pulmonary disease (CMS/HCC) (Chronic) He is a former smoker but quit about five years ago. He has inhalers that keep his symptoms under control. He uses the Symbicort about every other day to stretch it out, as it is somewhat costly. Lungs are clear and oxygen saturation is satisfactory. Circulatory Essential hypertension (Chronic) Blood pressure is in a reasonable range. He denies having chest pain. There is no swelling in his legs. We sent in a refill of his medicine has requested. Relevant Medications losartan (COZAAR) 100 mg tablet Chronic coronary artery disease (Chronic) He has mild coronary artery disease on catheterization a number of years ago. There was mildly diminished global LV systolic function. He denies having any chest pains or shortness of breath. He is on aspirin as his main treatment. Recent cholesterol numbers are okay, we will repeat them and if appropriate, at cholesterol medicine. Relevant Medications losartan (COZAAR) 100 mg tablet Other Relevant Orders Lipid panel Vitamin B12 CBC with auto differential TSH Hepatitis B surface antibody (immune status) Hepatitis B Surface Antigen Hepatitis C antibody Iron profile w/ IBC Ferritin TRISTA qualitative with reflex to TRISTA Quantitative Smooth muscle antibody, qualitative Testosterone Hepatitis B core antibody, total US Liver Digestive Steatosis of liver (Chronic) He has had mild elevation of ALT [...] on findings, consider additional workup and/or referral. Relevant Orders Lipid panel Vitamin B12 CBC with auto differential TSH Hepatitis B surface antibody (immune status) Hepatitis B Surface Antigen Hepatitis C antibody Iron profile w/ IBC Ferritin TRISTA qualitative with reflex to TRISTA Quantitative Smooth muscle antibody, qualitative Testosterone Hepatitis B core antibody, total US Liver Non morbid obesity (Chronic) He is working on his weight to get it down. 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 Other Persistent mood disorder (CMS/HCC) (Chronic) He continues to do well on Cymbalta, denies feeling moreno or depressed. He will continue the same. Other fatigue He has been quite fatigued for the [...] only scores 3 or 4 on the [place] scale. However he seems to be at risk for sleep apnea. He is quite obese. He has a Mallampati class 2-3 exam. His friends tell stef that he snores. We will requesta sleep study. We will request other labs to evaluate his fatigue Relevant Orders Lipid panel Vitamin B12 CBC with auto differential TSH Hepatitis B surface antibody (immune status) Hepatitis B Surface Antigen Hepatitis C antibody Iron profile w/ IBC Ferritin TRISTA qualitative with reflex to TRISTA Quantitative Smooth muscle antibody, qualitative Testosterone Hepatitis B core antibody, total Portable/Home Sleep Study Other Visit Diagnoses Annual visit for general adult medical examination with abnormal findings - Primary Preventive care reviewed. Sleep disorder, unspecified Relevant Orders Portable/Home Sleep Study Skin lesion Relevant Orders Ambulatory referral to General Surgery Routine/Preventive Care: We gave him the Prevnar 13 and a measles booster. HPI: The patient presents for Annual evaluation of overall health and preventive care needs, as well as to address and manage a number of chronic conditions and symptoms as described. We are orderingadditional tests, and for routine care plan to see him back annually or sooner as needed depending on on results of ordered tests. Review of Systems Constitutional: Positive for fatigue. Negative for fever and unexpected weight change. [...] Negative for adenopathy. Psychiatric/Behavioral: Negative for dysphoric mood and sleep disturbance. The patient is not nervous/anxious. Current medication list reviewed and reconciled. Allergies Allergen Reactions ??? Hydrocodone-Acetaminophen ??? Penicillins Past Medical, Family and Social History: Pertinent details reviewed. Vitals: 07/17/19 1442 BP: 134/78 BP Location: Left arm Patient Position: Sitting Pulse: 60 Resp: 20 Temp: 36.7 ??C (98.1 ??F) SpO2: 97% Weight: 116.1 kg (256 lb) Height: 167.6 cm (5' 6 ) Physical Exam Constitutional: No distress. Morbidly obese. HENT: Mouth/Throat: Oropharynx is clear and moist. [...] Coordination normal. Motor strength, coordination without observed lateralizing deficit. Skin: Skin is warm. No rash noted. Psychiatric: He has a normal mood and affect. His behavior is normal. Thought content normal. Labs/Imaging/Other: As ordered in [...] LV dysfunction I51.9 ??? Other fatigue R53.83 documented in this encounter Miscellaneous Notes * Assessment & Plan Note - Az Allison MD - 07/27/2019 11:27 AM CDT Associated Problem(s): Mild intermittent asthma without complication Continue current therapy as discussed elsewhere. * Assessment & Plan Note - Az Allison MD - 07/17/2019 4:09 PM CDT Associated Problem(s): Steatosis of liver He has had mild elevation of ALT [...] on findings, consider additional workup and/or referral. * Assessment & Plan Note - Az Allison MD - 07/17/2019 4:08 PM CDT Associated Problem(s): Persistent mood disorder (CMS/HCC) He continues to do well on Cymbalta, denies feeling moreno or depressed. He will continue the same. * Assessment & Plan Note - Az Allison MD - 07/17/2019 4:06 PM CDT Associated Problem(s): Other fatigue He has been quite fatigued for the [...] only scores 3 or 4 on the [place] scale. However he seems to be at risk for sleep apnea. He is quite obese. He has a Mallampati class 2-3 exam. His friends tell stef that he snores. We will requesta sleep study. We will request other labs to evaluate his fatigue * Assessment & Plan Note - Az Allison MD - 07/17/2019 4:06 PM CDT Associated Problem(s): Morbid obesity (HCC) He is working on his weight to get it down. 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 * Assessment & Plan Note - Az Allison MD - 07/17/2019 4:05 PM CDT Associated Problem(s): Hypertension Blood pressure is in a reasonable range. He denies having chest pain. There is no swelling in his legs. We sent in a refill of his medicine has requested. * Assessment & Plan Note - Az Allison MD - 07/17/2019 4:04 PM CDT Associated Problem(s): Chronic obstructive pulmonary disease (HCC) He is a former smoker but quit about five years ago. He has inhalers that keep his symptoms under control. He uses the Symbicort about every other day to stretch it out, as it is somewhat costly. Lungs are clear and oxygen saturation is satisfactory. * Assessment & Plan Note - Az Allison MD - 07/17/2019 4:02 PM CDT Associated Problem(s): Coronary artery disease without angina pectoris He has mild coronary artery disease on catheterization a number of years ago. There was mildly diminished global LV systolic function. He denies having any chest pains or shortness of breath. He is on aspirin as his main treatment. Recent cholesterol numbers are okay, we will repeat them and if appropriate, at cholesterol medicine. * Addendum Note - Ruddy Lux - 07/17/2019 2:40 PM CDTAddended by: RUDDY LUX on: 08/17/2019 03:12 PM Modules accepted: Orders * Addendum Note - Amisha Self - 07/17/2019 2:40 PM CDTAddended by: AMISHA SELF on: 09/16/2019 10:21 AM Modules accepted: Orders * Addendum Note - Amisha Self - 07/17/2019 2:40 PM CDTAddended by: AMISHA SELF on: 09/17/2019 02:44 PM Modules accepted: Orders documented in this encounter Plan of Treatment Scheduled Referrals Name Type Priority Associated Diagnoses Order Schedule Ambulatory referral to General Surgery Outpatient Referral Routine Skin lesion Expected: 07/31/2019 (Approximate), Expires: 07/17/2020 documented as of this encounter Results * US Liver (08/21/2019 [...] gallstones seen. ?? us Az Allison MD [facility] [place] PROCEDURES Final Resul t documented in this encounter Visit Diagnoses Diagnosis Annual visit for general adult medical examination with abnormal findings- Primary Chronic obstructive pulmonary disease, unspecified COPD type (HCC) Essential hypertension Unspecified essential hypertension Chronic coronary artery disease Coronary atherosclerosis of unspecified type of vessel, [place] or graft Mild persistent asthma without complication Non morbid obesity Persistent mood disorder (HCC) Steatosis of liver Other chronic nonalcoholic liver disease Other fatigue Sleep disorder, unspecified Skin lesion Unspecified disorder of skin and subcutaneous tissue Sleep apnea, unspecified type Chronic coronary artery disease Coronary atherosclerosis of unspecified type of vessel, [place] or graft Steatosis of liver Other chronic nonalcoholic liver disease documented in this encounter Discontinued Medications Medication Sig Discontinue Reason Start Date End Da te losartan (COZAAR) 100 mg tabletIndications:Essenti al hypertension Take 1 tablet (100 mg total) by mouth daily. Reorder 07/16/2018 07/17/2019 documented as of this encounter Orders Immunization/Injection Count Last Ordered Date First Ordered Date MMR VACCINE SQ 1 07/17/2019 PNEUMOCOCCAL CONJUGATE VACCI NE 13-VALENT IM 1 07/17/2019 documented in this encounter Care Teams Fish Seiner Relationship Specialty Start Date End Date Az Allison MD [address] [place] [id number] PCP - General 02/22/17 09/19/22 documented as of this encounter
--- OUTSIDE RECORDS SUMMARY | 2024-11-24 10:12 | XMS_ITS | Encounter Summary ---
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 OFFICER - 12/30/2007 11:59 PM SEWAGE RETICULATION DRAFTING OFFICER Hospital Encounter [facility] [place] [id number] [address] Social History Tobacco Use Types Packs/Day Years Used Date Smoking Tobacco: Never Assessed Sex and Gender Information Value Date Recorded Sex Assigned at Not on file 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
--- OUTSIDE RECORDS SUMMARY | 2024-11-24 10:12 | XMS_ITS | Encounter Summary ---
Author Organization [facility] Address [address] [facility] [address] [place] [id number] Care Team Providers Care Facilities Specialist Name Role Phone Az Allison MD Primary Care Provider [phone] Reason for Visit * Reason Comments heat exposure Fatigue Encounter Details Date Type Department Care Team (Late st Contact Info) Description 06/15/2019 2:00 PM CDT Office Visit [facility] [address] [place] [id number] Paula Bell NP [address] [address] Heat exhaustion, initial encounter (Primary Dx); Fatigue, unspecified type Social History Tobacco Use Types Packs/Day Years Used Date Smoking Tobacco: Former Cigarettes 1 24 0 07/14/1990 - 06/25/2014 Smokeless Tobacco: Never Alcohol Use Standard Drinks/Week Comments No 0 (1 standard drink = 0.6 oz pur e alcohol) Sex and Gender Information Value Date Recorded Sex Assigned at Not on file 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 Gender Identity Not on file Sexual Orientation Not on file documented as of this encounter Last Filed Vital Signs Vital Sign Reading Time Taken Comments Blood Pressure 134/88 06/15/2019 1:55 PM CDT Pulse 60 06/15/2019 1:55 PM CDT Temperature 36.6 ??C (97.9 ??F) 06/15/2019 1:55 PM CD T Respiratory Rate 20 06/15/2019 1:55 PM CDT Oxygen Saturation 97% 06/15/2019 1:55 PM CDT Inhaled Oxygen Concentration - - Weight 117.5 kg (259 lb) 06/15/2019 1:55 PM CDT Height 167.6 cm (5' 6 ) 06/15/2019 1:55 PM CDT Body Mass Index 41.8 06/15/2019 1:55 PM CDT documented in this encounter Patient Instructions * Patient Instructions* Paula Bell NP - 06/15/2019 2:00 PM CDT ORDERS TO STAFF: OVERDUE FOR ANNUAL - NEEDS TO SCHEDULE Labs today - CMP, CBC, Creatinine kinase, UA with micro, - dx fatigue, heat exposure Will call with results. EKG today - normal EKG today Stay hydrated - drinking sips of water throughout the entire day. Make sure to take breaks out of the sun - to reduce heat exposure. Limit time at peak times of day when it is the hottest - typically 11a-2p. Recommend speaking with Dr. Allison about testosterone questions at upcoming ANNUAL documented in this encounter Progress Notes * Paula Bell NP - 06/15/2019 2:00 PM CDT Images from the original note were not included. Subjective/Objective Patient ID: Javier Sanchez is a 48 y.o. male presenting in office today with chief complaint of fatigue. Vitals: 06/15/19 1355 BP: 134/88 Pulse: 60 Resp: 20 Temp: 36.6 ??C (97.9 ??F) SpO2: 97% Weight: 117.5 kg (259 lb) Height: 167.6 cm (5' 6 ) Chief Complaint heat exposure and Fatigue Lately he has noticed his energy level is poor. He feels fatigued daily. He is concerned because she had heat exhaustion last summer and since then he hasn't done very well in the warm temperatures. 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 He has even reduced his hours during the day, does more later games. His job requires him to work both indoor and outdoor. He has been outdoors more often lately. During work on Saturday he missed lunch and worked all day long, primarily outdoors, the last hour ofthe day he felt poorly and just sat around. The next day he rested then umpired evening games, by 845p he became overtaken by the heat, had to rest and put ice on himself and cold shower. He has noticed he is still urinating fine. The following day he slept most the day in the air conditioner. Then today he returned to work and has been feeling blah today. He reports drinking water and gatorade at work, he doesn't take drinks when he is working outdoors,he drinks more when working inside. Denies changes in medications, decreased water intake. He has also noticed the past week he has wheezed more often when outdoors. He has also noticed withmore activity the wheezing occurs. He uses his albuterol inhaler PRN and Symbicort (sample PRN due to poor Rx coverage for inhalers he only uses samples PRN). Denies recent illness, fevers, chills, sinus pressure, congestion, chest pain, arm pain, dizziness,extremity edema. He is also interested in discussed testosterone testing and replacement with Dr. GAONA. He will reschedule ANNUAL appt (missed in April) and discuss this further with Dr. Allison. Review of Systems Constitutional: Positive for fatigue. Negative for chills and fever. Feeling fatigued and worn out after being in the heat. HENT: Negative for trouble swallowing and voice change. Respiratory: Positive for wheezing (intermittent when working outside - has needed albuterol PRN). Negative for cough, chest tightness and shortness of breath. Cardiovascular: Negative for chest pain, palpitations and leg swelling. Gastrointestinal: Negative for abdominal pain, diarrhea, nausea and vomiting. Genitourinary: Negative for difficulty urinating. Skin: Negative for pallor. Neurological: Negative for dizziness, weakness, numbness and headaches. Psychiatric/Behavioral: Negative for confusion. Physical Exam Constitutional: He is oriented to person, place, and time. He appears well- developed. No distress. Obese male HENT: Head: Normocephalic. Mouth/Throat: Uvula is midline, oropharynx is clear and moist and mucous membranes are normal. No posterior oropharyngeal erythema. Eyes: Pupils are equal, round, and reactive to light. EOM are normal. Neck: Normal range of motion. Neck supple. Cardiovascular: Normal rate, regular rhythm, normal heart sounds and intact distal pulses. No murmur heard. Pulmonary/Chest: Effort normal and breath sounds normal. No respiratory distress. He has no wheezes. Musculoskeletal: He exhibits no edema. Lymphadenopathy: He has no cervical adenopathy. Neurological: He is alert and oriented to person, place, and time. Skin: Skin is warm and dry. Capillary refill takes less than 2 seconds. Psychiatric: He has a normal mood and affect. His behavior is normal. Judgment and thought content normal. Assessment/Plan Diagnoses and all orders for this visit: Heat exhaustion, initial encounter (T67.5XXA) (Primary) - ECG 12 lead - Comprehensive metabolic panel; Future - CBC with auto differential; Future - Creatine kinase (CK), total; Future - Urinalysis reflex to microscopic; Future Fatigue, unspecified type (R53.83) - ECG 12 lead - Comprehensive metabolic panel; Future - CBC with auto differential; Future - Creatine kinase (CK), total; Future - Urinalysis reflex to microscopic; Future Labs today - CMP, CBC, Creatinine kinase, UA with micro - with hx of heat exhaustion last summer - he is at higher risk of recurrence. Will do labs today to evaluate this. Will call with results. EKG today - normal Stay hydrated - drinking sips of water throughout the entire day. Make sure to take breaks out of the sun - to reduce heat exposure. Limit time at peak times of day when it is the hottest - typically 11a-2p. Recommend speaking with Dr. Allison about testosterone questions at upcoming ANNUAL Paula Bell NP Cosigned by Az Allison MD at 06/16/2019 5:08 AM CDT documented in this encounter Procedure Notes * Az Allison MD - 06/15/2019 2:00 PM CDTAssociated Order(s): ECG 12 lead Post-Procedure Diagnose(s): Heat exhaustion, initial encounter; Fatigue, unspecified type ECG 12 lead Date/Time: 06/15/2019 2:40 PM Performed by: Az Allison MD Authorized by: Paula Bell NP Comparison: compared with previous ECG from 12/12/2014 Similar to previous ECG Rhythm: sinus bradycardia Rate: bradycardic BPM: 55 QRS axis: normal Conduction: conduction normal ST Segments: ST segments normal T Waves: T waves normal Other: no other findings Clinical impression: non-specific ECG Comments: Normal except for mild sinus bradycardia. documented in this encounter Plan of Treatment Not on file documented as of this encounter Procedures Procedure Name Priority Date/Time Associated Diagnosis Comments ECG 12-LEAD Routine 06/15/2019 2:00 PM CDT Fatigue, unspecified type Heat exhaustion, initial encounter documented in this encounter Results * Urinalysis reflex to microscopic (06/15/2019 3:10 [...] PM CDT 06/15/2019 8:42 PM CDT Narrative [facility] - 06/15/2019 8:54 PM CDT ?? Urine pH is affected by diet, medications, systemic acid-base disturbances, and renal tubular function. ??pH may affect urinary stone formation. ??For example, urine pH below 6.0 may help reduce the tendency for calcium phosphate stones and pH greater than 6.0 may reduce the tendency for uric acid stone formation. Source: [facility] Myton[facility]. Last revised 12-05-2017 Paula Bell NP LAB URINE ORDERABLES Final Result Performing Organization Address [facility] de Phone Number NAYANA [phone] [place] [address] * Creatine kinase (CK), total (06/15/2019 3:10 PM CDT) Pathologist [facility] CK 166 40 - 300 Units/L [facility] Blood specimen (specimen) 06/15/2019 3:10 PM CDT 06/15/2019 8:42 PM CDT Paula Bell NP LAB BLOOD ORDERABLES Final Result Performing Organization Address [facility] de Phone Number NAYANA [address] Department [place] [address] * (ABNORMAL) CBC with auto differential (06/15/2019 3:10 PM CDT) WBC 10.0(H) 3.8 - 9.9 K/cumm [facility] Hgb 14.5 13.0 - 17.5 g/dL [facility] Hct 44.2 38.9 - 50.3 % [facility] Plt 334 150 - 400 K/cumm [facility] MPV 10.9 9.1 - 12.3 fL [facility] RBC 4.93 4.30 - 5.80 M/cumm [facility] MCV 89.7 81.3 - 96.4 fL [facility] MCH 29.4 27.1 - 33.3 pg [facility] MCHC 32.8 32.3 - 35.7 g/dL [facility] RDW CV 13.2 11.1 - 14.9 % [facility] RDW SD 43.7 35.7 - 48.1 fL [facility] NRBC abs 0.00 0.00 - 0.01 K/cumm [facility] Blood specimen (specimen) 06/15/2019 3:10 PM CDT 06/15/2019 8:42 PM CDT us Paula Bell NP LAB BLOOD ORDERABLES Final Result [facility] [id number] Department [place] [address] * (ABNORMAL) Comprehensive metabolic panel (06/15/2019 3:10 PM CDT) Sodium 140 135 - 145 mmol/L [facility] Potassium, pl 4.5 3.3 - 4.9 mmol/L [facility] Chloride 100 97 - 110 mmol/L [facility] CO2 25 22 - 32 mmol/L [facility] Anion gap 15 2 - 15 mmol/L [facility] BUN 14 8 - 25 mg/dL [facility] Creatinine 1.07 0.80 - 1.30 mg/dL [facility] Glucose 104 70 - 199 mg/dL [facility] Comment: Interpretive Data Fasting glucose >/= 126 [...] Bell NP LAB BLOOD ORDERABLES Final Result [id number] [place] [address] * ECG 12-LEAD (06/15/2019 2:00 PM CDT) Narrative Az Allison MD - 06/15/2019 2:00 PM CDT Az Allison MD ? 06/16/2019 ??5:52 AM ECG 12 lead Date/Time: 06/15/2019 2:40 PM Performed by: Az Allison MD Authorized by: Paula Bell NP Comparison: compared with previous ECG from 12/12/2014 Similar to previous ECG Rhythm: sinus bradycardia Rate: bradycardic BPM: 55 QRS axis: normal Conduction: conduction normal ST Segments: ST segments normal T Waves: T waves normal Other: no other findings Clinical impression: non-specific ECG Comments: Normal except for mild sinus bradycardia. us Paula Bell FINANCIAL RETIREMENT PLAN SPECIALIST ECG ORDERABLES Edited Resu lt - Final documented in this encounter Visit Diagnoses Diagnosis Heat exhaustion, initial encounter- Primary Fatigue, unspecified type Fatigue, unspecified type Heat exhaustion, initial encounter documented in this encounter Care Teams Facilities Specialist Relationship Specialty Start Date End Date Az Allison MD [address] [place] [address] PCP - General 02/22/17 09/19/22 documented as of this encounter
--- OUTSIDE RECORDS SUMMARY | 2024-11-24 10:12 | XMS_ITS | Encounter Summary ---
Author Organization [facility] Address [address] [place] [address] Phone Care Team Providers Care Substance Abuse Therapist Name Role Phone Az Allison MD Primary Care Provider [phone] Encounter Details Date Type Department Care Team (Late st Contact Info) Description 02/06/2018 3:20 PM CDT Office Visit [facility] [address] [place] [address] Az Allison MD [address] [address] Annual visit for general adult medical examination with abnormal findings (Primary Dx); Mild persistent asthma without complication; Essential hypertension; Hyperglycemia; Steatosis of liver; Lipid screening; Chronic midline low back pain without sciatica; Persistent mood disorder (CMS/HCC) Social History Tobacco Use Types Packs/Day Years Used Date Smoking Tobacco: Never Smokeless Tobacco: Never Sex and Gender Information Value Date Recorded Sex Assigned at Not on file 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 Gender Identity Not on file Sexual Orientation Not on file documented as of this encounter Last Filed Vital Signs Vital Sign Reading Time Taken Comments Blood Pressure 146/90 02/06/2018 3:29 PM CDT Pulse 64 02/06/2018 3:29 PM CDT Temperature 36.8 ??C (98.2 ??F) 02/06/2018 3:29 PM CD T Respiratory Rate 20 02/06/2018 3:29 PM CDT Oxygen Saturation 97% 02/06/2018 3:29 PM CDT Inhaled Oxygen Concentration - - Weight 113.4 kg (250 lb) 02/06/2018 3:29 PM CDT Height 170.2 cm (5' 7 ) 02/06/2018 3:29 PM CDT Body Mass Index 39.16 02/06/2018 3:29 PM CDT documented in this encounter Patient Instructions * Patient Instructions* Az Allison MD - 02/06/2018 3:20 PM CDT Start lisinopril, blood pressure medication. Keep checking blood pressures. They should come down to less than 140/90. If not coming down below 140/90, call or return for early appointment. Pneumovax today as requested. Get labs done as ordered. Eat right and try to lose a little weight. Follow up annually and as needed. documented in this encounter Ordered Prescriptions Prescription Sig Dispense Quantity Refills Last Filled Start Date End Date DULoxetine DR (CYMBALTA) 60 mg capsuleIndications :Chronic midline low back pain without sciatica,Persisten t mood disorder (HCC) Take 1 capsule (60 mg total) by mouth daily. 90 capsule 3 02/06/2018 8 lisinopril (PRINIVIL,ZESTRIL) 10 mg tabletIndications: Essential hypertension Take 1 tablet (10 mg total) by mouth daily. 30 tablet 5 02/06/2018 8 documented in this encounter Progress Notes * Az Allison MD - 02/06/2018 3:20 PM CDT Problem List Items Addressed This Visit Nervous Low back pain (Chronic) He has chronic low back pain. In the past it has radiated down his legs, but with Cymbalta, his back pain is much better. There is no radiation down the legs. He is very functional. Refill provided. Relevant Medications DULoxetine (CYMBALTA) 60 mg capsule Respiratory Mild persistent asthma without complication (Chronic) He has rather mild symptoms. He carries around a Ventolin inhaler in case they flare up. Lungs are clear on exam today. Continue to monitor. Relevant Medications albuterol HFA (PROVENTIL HFA,VENTOLIN HFA) 90 mcg/actuation inhaler Circulatory Essential hypertension (Chronic) He has been checking blood pressures at home. He gets similar readings to the current reading in the office. This is indicative of mild hypertension. He has no worrisome symptoms such as chest pain or swelling in his legs. Since he has not been able to control this with diet and weight loss (weightis up a bit), we will put him on low-dose of lisinopril, risk of medication discussed. He should continue to check blood pressures at home and if they do not come down below 140/90, return in about six months or sooner as needed. Relevant Medications lisinopril (PRINIVIL,ZESTRIL) 10 mg tablet Other Relevant Orders Comprehensive metabolic panel Lipid panel Digestive Steatosis of liver (Chronic) We are checking some labs to see if there is any inflammatory reaction to the fatty infiltration seen in the liver on imaging studies. Last set of liver enzymes were actually normal. Endocrine/Metabolic Hyperglycemia (Chronic) On a set of labs from a couple years ago, blood sugar was mildly elevated. This is probably a nonfasting lab which was done in the emergency room and/or the hospital at the time of some chest pain. We will recheck labs and if appropriate, evaluate for underlying diabetes. Other Persistent mood disorder (CMS/HCC) (Chronic) In the past, he has had problems with a depressed mood. We put him on Cymbalta for dual purposes ofalleviating low back pain and improving his mood. It has worked well for him. He would like refillswhich we provided. Relevant Medications DULoxetine (CYMBALTA) 60 mg capsule Other Visit Diagnoses Annual visit for general adult medical examination with abnormal findings - Primary Preventive care reviewed. Lipid screening Relevant Orders Lipid panel Routine/Preventive Care: He wanted to boost his Pneumovax. Last one was about five years ago, and he has had pneumonia twice in the past, so this sounds like a good idea even though the degree of hisasthma is fairly mild. He did get this year's flu shot. There is no family history of early colon cancer. We will continue to monitor for needed screening and prevention. HPI: The patient presents for annual checkup. The issues discussed today are noted above. We also talked about his weight. He is quite muscular but still in the obese category and should try to get his weight down a bit. We also discussed his creatinine which has been somewhat borderline in the past. I believe this is due to his large body size and muscularity, but we are rechecking. We plan annual follow-up uness is blood pressures do not come down in which case he should come in within six months. Review of Systems Constitutional: Negative for fever and unexpected weight change. HENT: Positive for congestion (Has had a cold for about a week) and rhinorrhea. Negative for hearing loss. Eyes: Negative for photophobia, discharge and redness. Respiratory: Negative for shortness of breath and wheezing. Cardiovascular: Negative for chest pain and leg swelling. Gastrointestinal: Negative for abdominal pain, blood in stool, constipation and diarrhea. Endocrine: Moderately obese. Genitourinary: Negative for dysuria and hematuria. Musculoskeletal: Positive for back pain ( improved with Cymbalta). Negative for joint swelling. Skin: Negative for rash. Allergic/Immunologic: Negative for environmental allergies. Neurological: Negative for tremors. Hematological: Negative for adenopathy. Psychiatric/Behavioral: Positive for dysphoric mood ( improved with Cymbalta). Current Outpatient Prescriptions: ??? albuterol HFA (PROVENTIL HFA,VENTOLIN HFA) 90 mcg/actuation inhaler, Inhale 2 puffs every 6 (six) hours as needed., Disp: , Rfl: ??? DULoxetine DR (CYMBALTA) 60 mg capsule, Take 1 capsule (60 mg total) by mouth daily., Disp: 90 capsule, Rfl: 3 ??? lisinopril (PRINIVIL,ZESTRIL) 10 mg tablet, Take 1 tablet (10 mg total) by mouth daily., Disp: 30 tablet, Rfl: 5 ??? multivitamin (MULTIPLE VITAMINS) tablet tablet, take 1 by Oral route daily, Disp: 0, Rfl: 0 Allergies Allergen Reactions ??? Hydrocodone-Acetaminophen ??? Penicillins Past Medical, Family and Social History: Pertinent details reviewed. Vitals: 02/06/18 1529 BP: 146/90 Pulse: 64 Resp: 20 Temp: 36.8 ??C (98.2 ??F) SpO2: 97% Weight: 113.4 kg (250 lb) Height: 170.2 cm (5' 7 ) Physical Exam Constitutional: No distress. Moderately obese. HENT: Mouth/Throat: Oropharynx is clear and moist. No oropharyngeal exudate. Visualized portions of TM and canals normal. Eyes: Conjunctivae are normal. Right eye exhibits [...] behavior is normal. Thought content normal. Labs/Imaging/Other: Labs ordered as noted in epic. documented in this encounter Miscellaneous Notes * Assessment & Plan Note - Az Allison MD - 02/06/2018 4:22 PM CDT Associated Problem(s): Steatosis of liver We are checking some labs to see if there is any inflammatory reaction to the fatty infiltration seen in the liver on imaging studies. Last set of liver enzymes were actually normal. * Assessment & Plan Note - Az Allison MD - 02/06/2018 4:22 PM CDT Associated Problem(s): Persistent mood disorder (CMS/HCC) In the past, he has had problems with a depressed mood. We put him on Cymbalta for dual purposes ofalleviating low back pain and improving his mood. It has worked well for him. He would like refillswhich we provided. * Assessment & Plan Note - Az Allison MD - 02/06/2018 4:21 PM CDT Associated Problem(s): Mild intermittent asthma without complication He has rather mild symptoms. He carries around a Ventolin inhaler in case they flare up. Lungs are clear on exam today. Continue to monitor. * Assessment & Plan Note - Az Allison MD - 02/06/2018 4:20 PM CDT Associated Problem(s): Low back pain He has chronic low back pain. In the past it has radiated down his legs, but with Cymbalta, his back pain is much better. There is no radiation down the legs. He is very functional. Refill provided. * Assessment & Plan Note - Az Allison MD - 02/06/2018 4:19 PM CDT Associated Problem(s): Hyperglycemia On a set of labs from a couple years ago, blood sugar was mildly elevated. This is probably a nonfasting lab which was done in the emergency room and/or the hospital at the time of some chest pain. We will recheck labs and if appropriate, evaluate for underlying diabetes. * Assessment & Plan Note - Az Allison MD - 02/06/2018 4:17 PM CDT Associated Problem(s): Hypertension He has been checking blood pressures at home. He gets similar readings to the current reading in the office. This is indicative of mild hypertension. He has no worrisome symptoms such as chest pain or swelling in his legs. Since he has not been able to control this with diet and weight loss (weightis up a bit), we will put him on low-dose of lisinopril, risk of medication discussed. He should continue to check blood pressures at home and if they do not come down below 140/90, return in about six months or sooner as needed. documented in this encounter Plan of Treatment Not on file documented as of this encounter Procedures Procedure Name Priority Date/Time Associated Diagnosis Comments CBC WITH AUTO DIFFERENTIAL Routine 10/22/2018 7:25 AM RENAL DIALYSIS TECHNICIAN LIPID PANEL Routine 10/22/2018 7:25 AM RENAL DIALYSIS TECHNICIAN Essential hypertension Lipid screening COMPREHENSIVE METABOLIC PANEL Routine 10/22/2018 7:25 AM RENAL DIALYSIS TECHNICIAN Essential hypertension documented in this encounter Results * CBC with auto differential (10/22/2018 7:25 AM RENAL DIALYSIS TECHNICIAN) WBC 7.3 3.8 - 10.8 Thousand/ uL [facility] [place] RBC, POC 5.47 4.20 - 5.80 Million/u L [facility] [place] Hgb 15.4 13.2 - 17.1 g/dL [facility] [place] Hct 45.8 38.5 - 50.0 % [facility] [place] MCV 83.7 80.0 - 100.0 fL [facility] [place] MCH 28.2 27.0 - 33.0 pg [facility] [place] MCHC 33.6 32.0 - 36.0 g/dL [facility] [place] Rdw 13.3 11.0 - 15.0 % [facility] [place] Platelets 311 140 - 400 Thousand/ uL [facility] [place] MPV 10.4 7.5 - 12.5 fL [facility] [place] Neutrophils, abs 4,132 1,500 - 7,800 cells/uL [facility] [place] Neutrophil bands, abs CANCELED 0 - 750 cells/uL [facility] [place] Comment:Result canceled by t he ancillary Metamyelocytes, abs CANCELED 0 cells/uL [facility] [place] Comment:Result canceled by t he ancillary Absolute Myelocytes CANCELED 0 cells/uL [facility] [place] Comment:Result canceled by t he ancillary Promyelocytes, abs CANCELED 0 cells/uL [facility] [place] Comment:Result canceled by t he ancillary Lymphocytes, abs 2,467 850 - 3,900 cells/uL [facility] [place] Monocyte abs 489 200 - 950 cells/uL [facility] [place] Eosinophils, abs 190 15 - 500 cells/uL [facility] [place] Basophils, abs 22 0 - 200 cells/uL [facility] [place] Blast, cell CANCELED 0 cells/uL [facility] [place] Comment:Result canceled by t he ancillary NRBC abs CANCELED 0 cells/uL [facility] [place] Comment:Result canceled by t he ancillary Neutrophils 56.6 % [facility] [place] Neutrophilic bands [...] canceled by t he ancillary Lymphocyte pct 33.8 % [facility] [place] Reactive lymph CANCELED 0 - 10 % [facility] [place] Comment:Result canceled by t he ancillary Monocytes 6.7 % [facility] [place] Eosinophils 2.6 % [facility] [place] Basophils 0.3 % [facility] [place] Blast pct CANCELED % [facility] [place] Comment:Result canceled by t he ancillary NRBC CANCELED 0 /100 WBC [facility] [place] Comment:Result canceled by t he ancillary Comment CANCELED [facility] [place] Comment:Result canceled by rosalva gibson ancillary 10/22/2018 7:25 AM RENAL DIALYSIS TECHNICIAN 10/22/2018 7:26 AM RENAL DIALYSIS TECHNICIAN Narrative [facility] - 10/23/2018 1:32 AM RENAL DIALYSIS TECHNICIAN FASTING:YES FASTING: YES Resulting Agency Comment Performing Organization Information: ?Site ID: [place] ?Name: [facility] ?Address: [address] [address] ?Director: Orion Glynn D.O., MPH us Az Allison MD LAB BLOOD ORDERABLES Final Re sult [facility] [place] [address] * (ABNORMAL) Lipid panel (10/22/2018 7:25 AM RENAL DIALYSIS TECHNICIAN) Cholesterol 217(H) <200 mg/dL [facility] [place] HDL 44 >40 mg/dL [facility] [place] Triglycerides 177(H) <150 mg/dL [facility] [place] LDL 142(H) mg/dL (calc) [facility] [place] Comment: Reference range: <100 Desirable range <100 mg/dL for primary prevention; ?? <70 mg/dL for patients with CHD or diabetic patients with > or = 2 CHD risk factors. LDL-C is now calculated using the Ronnie-Tonio calculation, which is a validated novel method providing better accuracy than the Friedewald equation in the estimation of LDL-C. Ronnie MONTES et al. NEGAR. 2013;310(19): 7030-5207 (http://education.ishBowl.HopStop.com/faq/MTT587) Chol/HDL ratio 4.9 <5.0 (calc) [facility] [place] Non-HDL, (LDL+VLDL) 173(H) <130 mg/dL (calc) [facility] [place] Comment: For patients with diabetes plus 1 major ASCVD risk factor, treating to a non-HDL-C goal of <100 mg/dL (LDL-C of <70 mg/dL) is considered a therapeutic option. Blood specimen (specimen) 10/22/2018 7:25 AM RENAL DIALYSIS TECHNICIAN 10/22/2018 7:26 AM RENAL DIALYSIS TECHNICIAN Narrative [facility] - 10/23/2018 1:32 AM RENAL DIALYSIS TECHNICIAN FASTING:YES FASTING: YES Resulting Agency Comment Performing Organization Information: ?Site ID: [place] ?Name: [facility] ?Address: [facility] [address] [address] ?Director: Orion Glynn D.O., MPH us Az Allison MD LAB BLOOD ORDERABLES Final Re sult [facility] [place] [address] [address] * Comprehensive metabolic panel (10/22/2018 7:25 AM RENAL DIALYSIS TECHNICIAN) Glucose 98 65 - 99 mg/dL [facility] [place] Comment: ? Fasting reference interval BUN 13 7 - 25 mg/dL [facility] [place] Creatinine 1.10 0.60 - 1.35 mg/dL [facility] [place] eGFR NON-AFR. LIBYAN 80 > OR = 60 mL/min/1. 73m2 [facility] [place] EGFR 92 > OR = 60 mL/min/1. 73m2 [facility] [place] BUN/creat ratio NOT APPLICABLE 6 - 22 (calc) [facility] [place] Sodium 139 135 - 146 mmol/L [facility] [place] Potassium, pl 4.7 3.5 - 5.3 mmol/L [facility] [place] Chloride 101 98 - 110 mmol/L [facility] [place] CO2 32 20 - 32 mmol/L [facility] [place] Calcium 9.8 8.6 - 10.3 mg/dL [facility] [place] Protein, sr 6.5 6.1 - 8.1 g/dL [facility] [place] Albumin 4.4 3.6 - 5.1 g/dL [facility] [place] GLOBULIN 2.1 1.9 - 3.7 g/dL (calc) [facility] [place] Alb/glob ratio 2.1 1.0 - 2.5 (calc) [facility] [place] Bilirubin, total 0.6 0.2 - 1.2 mg/dL [facility] [place] Alk phos 55 40 - 115 U/L [facility] [place] AST 29 10 - 40 U/L [facility] [place] ALT (SGPT) 38 9 - 46 U/L [facility] [place] Blood specimen (specimen) 10/22/2018 7:25 AM RENAL DIALYSIS TECHNICIAN 10/22/2018 7:26 AM RENAL DIALYSIS TECHNICIAN Narrative [facility] - 10/23/2018 1:32 AM RENAL DIALYSIS TECHNICIAN FASTING:YES FASTING: YES Resulting Agency Comment Performing Organization Information: ?Site ID: [id number] ?Name: [facility] ?Address: [address] [address] ?Director: Orion Glynn D.O., MPH us Az Allison MD LAB BLOOD ORDERABLES Final Re sult [facility] [address] documented in this encounter Visit Diagnoses Diagnosis Annual visit for general adult medical examination with abnormal findings- Primary Mild persistent asthma without complication Essential hypertension Unspecified essential hypertension Hyperglycemia Other abnormal glucose Steatosis of liver Other chronic nonalcoholic liver disease Lipid screening Screening for lipoid disorders Chronic midline low back pain without sciatica Persistent mood disorder (HCC) documented in this encounter Discontinued Medications Medication Sig Discontinue Reason Start Date End Da te DULoxetine DR (CYMBALTA) 60 mg capsule Take 1 capsule (60 mg total) by mouth daily. Reorder 01/21/2018 02/06/2018 documented as of this encounter Historical Medications * This list may reflect changes made after this encounter. albuterol HFA (PROVENTIL HFA,VENTOLIN HFA) 90 mcg/actuation inhaler Inhale 2 puffs every 6 (six) hours as needed. 07/22/2020 added in this encounter Orders Immunization/Injection Count Last Ordered Date First Ordered Date PNEUMOCOCCAL POLYSACCHARIDE VACCINE 23-VALENT =>2YO SQ IM 1 02/06/2018 documented in this encounter Care Teams Substance Abuse Therapist Relationship Specialty Start Date End Date Az Allison MD [address] [place] [address] PCP - General 02/22/17 09/19/22 documented as of this encounter
--- OUTSIDE RECORDS SUMMARY | 2024-11-24 10:12 | XMS_ITS | Encounter Summary ---
Author Organization [facility] Address [address] [place] [address] Care Team Providers Care Retail Maintenance Technician Name Role Phone Az Allison MD Primary Care Provider [phone] Encounter Details Date Type Department Care Team (Late st Contact Info) Description 06/15/2019 3:10 PM CDT [facility] [address] [place] [address] Social History Tobacco Use Types Packs/Day Years Used Date Smoking Tobacco: Former Cigarettes 1 24 0 07/14/1990 - 06/25/2014 Smokeless Tobacco: Never Alcohol Use Standard Drinks/Week Comments No 0 (1 standard drink = 0.6 oz pur e alcohol) Sex and Gender Information Value Date Recorded Sex Assigned at Not on file 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
--- OUTSIDE RECORDS SUMMARY | 2024-11-24 10:12 | XMS_ITS | Encounter Summary ---
Author Organization [facility] Address [address] [facility] [address] [place] [id number] Care Team Providers Care Spring Production Supervisor Name Role Phone Az Allison MD Primary Care Provider [phone] Encounter Details Date Type Department Care Team (Late st Contact Info) Description 10/24/2018 2:20 PM SUPERVISING BAILIFF Office Visit [facility] [address] [place] [address] Az Allison MD [address] [address] Chronic coronary artery disease (Primary Dx); Chronic obstructive pulmonary disease, unspecified COPD type (CMS/HCC); Essential hypertension; Hyperglycemia; Persistent mood disorder (CMS/HCC); Non morbid obesity Social History Tobacco Use Types Packs/Day Years Used Date Smoking Tobacco: Former Cigarettes 1 24 0 07/14/1990 - 06/25/2014 Smokeless Tobacco: Never Alcohol Use Standard Drinks/Week Comments No 0 (1 standard drink = 0.6 oz pur e alcohol) Sex and Gender Information Value Date Recorded Sex Assigned at Not on file Legal Sex Male 9:12 AM SUPERVISING BAILIFF Gender Identity Not on file Sexual Orientation Not on file documented as of this encounter Last Filed Vital Signs Vital Sign Reading Time Taken Comments Blood Pressure 120/76 10/24/2018 2:22 PM SUPERVISING BAILIFF Pulse 68 10/24/2018 2:22 PM SUPERVISING BAILIFF Temperature 36.6 ??C (97.8 ??F) 10/24/2018 2:22 PM CS T Respiratory Rate 18 10/24/2018 2:22 PM SUPERVISING BAILIFF Oxygen Saturation 96% 10/24/2018 2:22 PM SUPERVISING BAILIFF Inhaled Oxygen Concentration - - Weight 108.9 kg (240 lb) 10/24/2018 2:22 PM SUPERVISING BAILIFF Height 167.6 cm (5' 6 ) 10/24/2018 2:22 PM SUPERVISING BAILIFF Body Mass Index 38.74 10/24/2018 2:22 PM SUPERVISING BAILIFF documented in this encounter Patient Instructions * Patient Instructions* Az Allison MD - 10/24/2018 2:20 PM SUPERVISING BAILIFF welcome desk agent will give you a symbicort 160 sample. Continue current medications. Follow up in 6 months. RVISING BAILIFF RVISING BAILIFF documented in this encounter Progress Notes * Az Allison MD - 10/24/2018 2:20 PM CST Problem List Items Addressed This Visit Respiratory Chronic obstructive pulmonary disease (CMS/HCC) (Chronic) He used to smoke cigarettes but quit many years ago. He does use a Symbicort inhaler and has a rescue inhaler as needed. Lungs are clear and oxygen saturations are normal. Continue same. Circulatory Essential hypertension (Chronic) Blood pressure is in a good range on current therapy. He is tolerating his medications. Labs are stable. Continue same and follow-up in six months. Chronic coronary artery disease - Primary (Chronic) He has no complaints of chest pain. [...] in six months or sooner as needed. Relevant Medications aspirin 81 mg tablet Digestive Non morbid obesity (Chronic) He has lost about 10 lb since his last visit and is no longer in a morbid obese category. He plans to continue eating right and losing a few more lb. Endocrine/Metabolic Hyperglycemia (Chronic) In the past, he has had some mild/borderline elevated blood sugars. Most recent fasting blood sugaris normal at 98. He is working hard on his diet and losing some weight. Continue same. Follow up insix months. Other Persistent mood disorder (CMS/HCC) (Chronic) He is on Cymbalta. His mood is good. Continue same. Routine/Preventive Care: He had this year's flu shot already. We discussed a low saturated fat dietfor his cholesterol. Hancock risk is only 7%. HPI: The patient presents for periodic evaluation and management of several medical problems. See above for details. He is feeling better than he has in a long time with a reformed diet and a little bit of weight loss. He is staying very active. We plan to see him back in six months. Review of Systems Constitutional: Negative for fever. HENT: Negative for hearing loss and rhinorrhea. Eyes: Negative for discharge. Respiratory: Negative for shortness of breath and wheezing. Cardiovascular: Negative for chest pain. Gastrointestinal: Negative for abdominal pain, blood in stool, constipation and diarrhea. Endocrine: Somewhat obese. Genitourinary: Negative for dysuria and hematuria. Musculoskeletal: Negative for joint swelling. Skin: Negative for rash. Allergic/Immunologic: Negative for environmental allergies. Neurological: Negative for tremors. Hematological: Negative for adenopathy. Psychiatric/Behavioral: Negative for dysphoric mood. Current medication list reviewed and reconciled. Allergies Allergen Reactions ??? Hydrocodone-Acetaminophen ??? Penicillins Past Medical, Family and Social History: Pertinent details reviewed. Vitals: 10/24/18 1422 BP: 120/76 Pulse: 68 Resp: 18 Temp: 36.6 ??C (97.8 ??F) SpO2: 96% Weight: 108.9 kg (240 lb) Height: 167.6 cm (5' 6 ) Physical Exam Constitutional: No distress. HENT: Mouth/Throat: Oropharynx is clear and moist. [...] behavior is normal. Thought content normal. Labs/Imaging/Other: We reviewed his labs together. There are mild elevations of cholesterol and LDL. Chemistry panel is unremarkable. CBC is normal. RVISING BAILIFF documented in this encounter Miscellaneous Notes * Assessment & Plan Note - Az Allison MD - 10/24/2018 3:22 PM SUPERVISING BAILIFF Associated Problem(s): Persistent mood disorder (CMS/HCC) He is on Cymbalta. His mood is good. Continue same. RVISING BAILIFF * Assessment & Plan Note - Az Allison MD - 10/24/2018 3:22 PM SUPERVISING BAILIFF Associated Problem(s): Morbid obesity (HCC) He has lost about 10 lb since his last visit and is no longer in a morbid obese category. He plans to continue eating right and losing a few more lb. RVISING BAILIFF RVISING BAILIFF * Assessment & Plan Note - Az Allison MD - 10/24/2018 3:21 PM SUPERVISING BAILIFF Associated Problem(s): Hyperglycemia In the past, he has had some mild/borderline elevated blood sugars. Most recent fasting blood sugaris normal at 98. He is working hard on his diet and losing some weight. Continue same. Follow up insix months. RVISING BAILIFF * Assessment & Plan Note - Az Allison MD - 10/24/2018 3:21 PM SUPERVISING BAILIFF Associated Problem(s): Hypertension Blood pressure is in a good range on current therapy. He is tolerating his medications. Labs are stable. Continue same and follow-up in six months. RVISING BAILIFF * Assessment & Plan Note - Az Allison MD - 10/24/2018 3:20 PM SUPERVISING BAILIFF Associated Problem(s): Chronic obstructive pulmonary disease (HCC) He used to smoke cigarettes but quit many years ago. He does use a Symbicort inhaler and has a rescue inhaler as needed. Lungs are clear and oxygen saturations are normal. Continue same. RVISING BAILIFF * Assessment & Plan Note - Az Allison MD - 10/24/2018 3:19 PM SUPERVISING BAILIFF Associated Problem(s): Coronary artery disease without angina pectoris He has no complaints of chest pain. [...] in six months or sooner as needed. RVISING BAILIFF RVISING BAILIFF documented in this encounter Plan of Treatment Not on file documented as of this encounter Visit Diagnoses Diagnosis Chronic coronary artery disease- Primary Coronary atherosclerosis of unspecified type of vessel, ak chin or graft Chronic obstructive pulmonary disease, unspecified COPD type (HCC) Essential hypertension Unspecified essential hypertension Hyperglycemia Other abnormal glucose Persistent mood disorder (HCC) Non morbid obesity documented in this encounter Discontinued Medications Medication Sig Discontinue Reason Start Date End Da te clindamycin (CLEOCIN) 300 mg capsule Therapy completed 8 10/24/2018 documented as of this encounter Historical Medications * This list may reflect changes made after this encounter. aspirin 81 mg tablet Take 81 mg by mouth daily. clindamycin (CLEOCIN) 300 mg capsule 08/28/2018 10/24/2018 added in this encounter Care Teams Spring Production Supervisor Relationship Specialty Start Date End Date Az Allison MD [address] [place] [address] PCP - General 02/22/17 09/19/22 documented as of this encounter
--- OUTSIDE RECORDS SUMMARY | 2024-11-24 10:12 | XMS_ITS | Encounter Summary ---
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 Name Role Phone Az Allison MD Primary Care Provider [phone] Encounter Details Date Type Department Care Team (Latest Contact Info) Description 12/12/2014 8:42 PM GRADES 1 6 TUTOR - 12/13/2014 6:40 PM GRADES 1 6 TUTOR Hospital Encounter [facility] Jeronimo Krueger MD [address] [place] [address] [place] [address] Coronary atherosclerosis of [place] coronary artery; Other and unspecified hyperlipidemia; Elevated blood-pressure reading without diagnosis of hypertension; Other abnormal glucose; Personal history of allergy to penicillin; Personal history of tobacco use, presenting hazards to health Social History Tobacco Use Types Packs/Day Years Used Date Smoking Tobacco: Never Assessed Sex and Gender Information Value Date Recorded Sex Assigned at Not on file Legal Sex Male 9:12 AM GRADES 1 6 TUTOR Gender Identity Not on file Sexual Orientation Not on file documented as of this encounter Last Filed Vital Signs Vital Sign Reading Time Taken Comments Blood Pressure 100/56 12/13/2014 4:00 PM GRADES 1 6 TUTOR Pulse 80 12/13/2014 4:00 PM GRADES 1 6 TUTOR Temperature - - Respiratory Rate - - Oxygen Saturation - - Inhaled Oxygen Concentration - - Weight 99.6 kg (219 lb 9.3 oz) 12/13/2014 4:18 A M GRADES 1 6 TUTOR Height 170.2 cm (5' 7.01 ) 12/12/2014 11:[address] Body Mass Index 34.38 12/12/2014 11:14 PM GRADES 1 6 TUTOR documented in this encounter H&P Notes * Provider, MD Zi - 12/12/2014 12:00 AM CST HISTORY AND PHYSICAL Patient: JAVIER SANCHEZ Account: [id number] Room No: 2630-01 : 1970 Patient Type: [facility] Attend.: Jeronimo Colindres M.D. Admit Date: 12/12/2014 Dict.: Jeronimo Colindres M.D. Disch. Date: PRIMARY CARE PHYSICIAN: Dr. Alfa Mota CHIEF COMPLAINT: Chest pain. HISTORY OF PRESENT ILLNESS: Patient is a 43-year-old male with past medical history of smoking who presented to the emergency room with chest pain. The patient goes to the gym and uses the treadmill often. But, over the past one week the patient has noticed that his energy level is down and he feels extremity weak. He also adds that he has stressors at home. But yesterday evening, at 7:45 p.m. he was walking the treadmill he started having left-sided chest pain elbow his left nipple 20 minutes after walking on the treadmill. He had this dull pain and rates it at 6 out of 10. He also had some funny feeling on his left arm. He denied any lightheadedness or dizziness but he knew that something was just not right. He was also sweating during this time. So, he presented to the emergency room for further evaluation. His chest pain got better after he got the nitro paste in the ER. The patient also got metoprolol tartrate 25 mg. PAST MEDICAL HISTORY: 1. History of smoking. 2. Elevated blood pressure (no diagnosis of hypertension but recently his blood pressure was higher in the office per patient). 3. Depression and anxiety. PAST SURGICAL HISTORY: 1. Laminectomy. 2. Right shoulder surgery. MEDICATIONS: Please refer to admission medication for complete details. ALLERGIES: Vicodin. Penicillin. SOCIAL HISTORY: Patient used to smoke one pack per day for around seven years. He quit smoking one year ago. He occasionally uses alcohol, once every two months or so. Denies any drug use. He lives at home alone. He is currently looking for a job. FAMILY HISTORY: Positive for myocardial infarction in his grandfather, first one in his 40s. He also thinks that his mother might have a stent when she was in her 40s. REVIEW OF SYSTEMS: Denies any headache, double vision or blurred vision. Has some sore throat. Positive for chest pain. Positive for shortness of breath. No orthopnea or paroxysmal nocturnal dyspnea. No bilateral leg swelling. No cough or sputum production. No fever or chills. No nausea, vomiting, diarrhea or constipation. No abdominal pain. No dysuria, urgency or frequency. Has hesitancy starting the flow. No arthritis or arthralgia. No hemiplegia or hemiparesis. No seizure disorder. Positive for depression. No suicidal ideation or homicidal ideation. No weight loss. PHYSICAL EXAMINATION: Vital signs: Temperature 96.4, heart rate 60, respirations 18, SPO2 100% on room air and blood pressure was 102/58 on arrival. General appearance: Patient is alert and oriented times three. In no acute distress. HEENT: Atraumatic, normocephalic. Pupils are equal and round. Extraocular movements are intact. Moist mucous membranes. CVS: Regular rate and rhythm. Respiration: Clear to auscultation bilaterally. Abdomen: Soft, nontender and nondistended. Bowel sounds normoactive. Extremities: No edema. No calf tenderness. Neuro: No focal deficits. Psychiatric: Normal mood and affect. Palpation of the chest does not reproduce any pain. LAB DATA: EKG showed sinus rhythm with nonspecific ST and T wave abnormalities. Repeat EKG done this morning showed sinus bradycardia with a heart rate of 42. Troponin less than 0.04 x2. Magnesium 1.9. BNP 30. Sodium 134, potassium 3.3, chloride 100, bicarb 25.4. Glucose 120. BUN 15. Creatinine 1.37. Alkaline phosphatase, ALT, AST and bilirubin normal. INR 0.97. WBC 13.89, neutrophils 74%, hemoglobin 14.0, platelets 347. Chest x-ray shows no acute infiltrate. ASSESSMENT AND PLAN: The patient is a 44-year-old male with past medical history of smoking who has been admitted with 1. Chest pain. The patient had chest pain when he was walking on the treadmill yesterday. His EKG and serial troponins have been negative x2. The patient had bradycardia over night but he also got Lopressor in the ER. The patient is currently on nitro paste. The patient has no chest pain at this time. BNP, chest x-ray have been normal. The patient will get a cardiology consultation since he had exertional chest pain yesterday for a possible cardiac catheterization. Further recommendations per cardiology. There is positive family history for coronary artery disease. 2. Elevated blood pressure. The patient's blood pressure was high when he first came to the emergency room. The patient's blood pressure is currently on the softer side. Will continue to monitor this closely. Patient is not on any anti-hypertensives at this time. Patient is on nitro patch. 3. DVT prophylaxis with Lovenox. 4. GI prophylaxis with Protonix. 5. Expected length of stay to less than two-midnight (this will depend on the patient's cardiac catheterization results). ADDENDUM: Patient was eventually discharged later in the evening after cardiac catherization was done by Dr. Perry. He was found to have mild CAD and not intervention was required. Patient was discharged home on aspirin and statin. Echocardiogram results were pending at the time of discharge and was asked to follow up with pcp in 1 week for follow up and echo results. Patient also could not get cardio net monitor at discharge, that was recommended by Dr. Perry for his bradycardia due to insurance and cost issues. Since the patient's bradycardia occured after admission after he was given a dose of Lopressor in the ER, he was asked to monitor for recurrence of chest pain or lightheadedness or dizziness and to return to ER if these occured. He will f/u PCP in 1 week. Jeronimo Colindres M.D. PG/ TD: 12/13/2014 09:14 CC: Alfa Mota M.D. Electronically Authenticated and Edited by: Jeronimo Colindres MD On 12/14/2014 01:25 PM GRADES 1 6 TUTOR documented in this encounter Consult Notes * Provider, MD Zi - 12/13/2014 12:00 AM CST CONSULTATION REPORT Patient: JAVIER SANCHEZ Account: [id number] Room No: 2630-01 : 1970 Patient Type: [facility] Attend.: Jeronimo Colindres M.D. Admit Date: 12/12/2014 Consult: Nathan Perry M.D. F.A.C.C. Disch. Date: CARDIOLOGY CONSULTATION DATE OF CONSULTATION 12/13/2014 REASON FOR CONSULTATION Chest pain, rule out NM. HISTORY OF PRESENT ILLNESS The patient is a pleasant 44-year-old male with no previous cardiac problems. He has noticed at least two weeks of easy fatigue. Over the past few days he has also noted some exertional and nonexertional left upper chest and left upper extremity discomfort. This is described as an aching sensation. The worst pain was yesterday when he was walking on a treadmill. The whole thing lasted about two hours. He was admitted and was ruled out for an NM by two sets of cardiac enzymes. This morning, he had recurrent episode of left upper extremity discomfort. There was no reproducible chest wall tenderness. Nothing arrhythmic noted overnight. He has never had a stress test before. He has never had a cardiac cath before. FAMILY HISTORY Father had an enlarged heart. Mother had a stent in her 60s. Paternal grandfather has had several heart attacks with the first heart attack in his 40s. Maternal grandfather also has had some heart attacks. SMOKING None for one year but used to be one pack a day for eight years. ALCOHOL Rarely. MEDICAL HISTORY 1. Borderline diabetes mellitus. 2. Dyslipidemia. 3. Depression. PHYSICAL EXAMINATION Vital signs: Blood pressure 102/58, pulse of 60 and regular. The patient is afebrile. In general, this is a mildly overweight male with top balding. He has a light mustache and a light ling. There is no chest wall tenderness to palpation. Lungs: Good and equal airway exchange bilaterally. They are clear to auscultation bilaterally. Heart: Slow and regular. No murmurs, gallops, or rubs. Extremities: No pedal edema. No focal weakness. EKG This morning showed sinus bradycardia at 42 beats per minute with a normal axis. Nonspecific diffuse ST and T wave changes noted. ASSESSMENT AND PLAN This is a 44-year-old male with a few risk factors for coronary disease including: Borderline diabetes, dyslipidemia, strong family history of premature coronary artery disease, and also previous smoking history. Pain does sound suspicious. Fortunately, he has been ruled out for an NM. He wants to find out for sure what is going on with his heart. Cardiac catheterization was offered. He understands the risks of cardiac cath to include the following but not limited to the following: , CVA, myocardial infarction, infection, vascular problems, dye reaction, dysrhythmias, pain, bleeding, renal failure, need for urgent CABG with stent placement. Radiation exposure also discussed with the patient. Nathan Perry M.D. Blake JETER/betty TD: 12/13/2014 10:58 CC: Alfa Mota M.D. Electronically Authenticated and Edited by: Nathan Perry MD On 12/14/2014 02:12 PM GRADES 1 6 TUTOR documented in this encounter Plan of Treatment Not on file documented as of this encounter Procedures Procedure Name Priority Date/Time Associated Diagnosis Comments TRANSESOPHAGEAL ECHO (JENNIFER) W DOPPLER/CF WO CONTRAST Routine 12/13/2014 3:08 PM GRADES 1 6 TUTOR INTRACARDIAC ECHOCARDIOGRAM Routine 12/13/2014 2:48 PM GRADES 1 6 TUTOR LEFT CORONARY ANGIOGRAPHY Routine 2014 11:42 AM GRADES 1 6 TUTOR URINALYSIS Routine 12/13/2014 10:20 AM GRADES 1 6 TUTOR SERUM LIPID PANEL Routine 12/13/2014 8:5 0 AM GRADES 1 6 TUTOR SERUM BASIC METABOLIC PANEL Routine 12/13/2014 8:50 AM GRADES 1 6 TUTOR BLOOD WBC CELL MORPHOLOGIC EXAM, AUTO Routine 12/13/2014 8:50 AM GRADES 1 6 TUTOR BLOOD CELL COUNT (CBC) Routine 5 8:50 AM GRADES 1 6 TUTOR SERUM TROPONIN I Routine 12/13/2014 2:50 AM GRADES 1 6 TUTOR ELECTROCARDIOGRAPHY (ECG) 12/13/2014 DISCHARGE LABORATORY CUMULATIVE REPORT Routine 12/13/2014 12:00 AM GRADES 1 6 TUTOR SERUM TROPONIN I Routine 12/12/2014 9:45 PM GRADES 1 6 TUTOR XR CHEST PA LATERAL 2 VIEWS Routine 12/12/2014 9:10 PM GRADES 1 6 TUTOR SERUM MAGNESIUM Routine 12/12/2014 9:04 PM GRADES 1 6 TUTOR SERUM COMPREHENSIVE METABOLIC PANEL Routine 12/12/2014 9:04 PM GRADES 1 6 TUTOR PLASMA PROTHROMBIN TIME (PT) Routine 12/12/2014 9:04 PM GRADES 1 6 TUTOR PLASMA PARTIAL THROMBOPLASTIN TIME (PTT) Routine 12/12/2014 9:04 PM GRADES 1 6 TUTOR BLOOD WBC CELL MORPHOLOGIC EXAM, AUTO Routine 12/12/2014 9:04 PM GRADES 1 6 TUTOR BLOOD CELL COUNT (CBC) Routine 5 9:04 PM GRADES 1 6 TUTOR SERUM TROPONIN I Routine 12/12/2014 3:04 PM GRADES 1 6 TUTOR BLOOD B-TYPE NATRIURETIC PEPTIDE (BNP) Routine 12/12/2014 3:04 PM GRADES 1 6 TUTOR ELECTROCARDIOGRAPHY (ECG) 12/12/2014 documented in this encounter Results * Transesophageal Echocardiogram (JENNIFER) Complete (12/13/2014 3:08 PM GRADES 1 6 TUTOR) Anatomical Region Laterality Modality Ultrasound 12/13/2014 3:08 PM GRADES 1 6 TUTOR Narrative 12/17/2014 3:52 PM GRADES 1 6 TUTOR ECHO CMPLT W DOPP WO CONT ??Acc#: ??[id number] DATE OF EXAM: ??Dec 13 2014 CLINICAL HISTORY: Chest pain. RESULT: TRANSTHORACIC ECHO REPORT Transthoracic 2-dimensional, M-mode and color and Doppler flow study was performed in the standard parasternal and apical windows. IMPRESSION: THE STUDY WAS TECHNICALLY SUBOPTIMAL IN THE APICAL WINDOWS. 2. NORMAL LEFT VENTRICULAR SYSTOLIC FUNCTION. ??ESTIMATED EJECTION FRACTION 65- 70%. 3. INCREASED AORTIC VALVE VELOCITIES CONSISTENT WITH INCREASED OUTPUT. THE AORTIC VALVE LEAFLETS APPEAR TO MOVE NORMALLY. 4. MILD MITRAL REGURGITATION. 5. MILD TRICUSPID REGURGITATION WITH CALCULATED RIGHT VENTRICULAR SYSTOLIC PRESSURE OF 75MMHG WHICH IS NORMAL. Interpreting Physician: ??DR MARLON CUNHA M.D. ??Read on: ??Dec 15 2014 ??2:31P Transcribed by: ??mrr ??On: Dec 15 2014 ??2:31P Approved Electronically by: ??DR MARLON CUNHA M.D. ??on: ??Dec 17 2014 ??3:52P Attending: ??JERONIMO COLINDRES Requesting: ??DR NATHAN PERRY Requesting Fax: ??-- Attending Fax: ??-- Attending ID: ?? Requesting ID: ??[id number] Report To 1 ID: ??[id number] Report To 1 Name: ??DR ОЛЕГ HUSTON Report To 1 FAX: ??-- NextGen Order #: Procedure Note Provider, MD Zi - 03/17/2017 ECHO CMPLT W DOPP WO CONT Acc#: [id number] DATE OF EXAM: Dec 13 2014 CLINICAL HISTORY: Chest pain. RESULT: TRANSTHORACIC ECHO REPORT Transthoracic 2-dimensional, M-mode and colorand Doppler flow study was performed in the standard parasternal andapical windows. IMPRESSION: THE STUDY WAS TECHNICALLY SUBOPTIMAL IN THE APICAL WINDOWS. 2. NORMAL LEFT VENTRICULAR SYSTOLIC FUNCTION. ESTIMATED EJECTION OITPUZFU84-65%. 3. INCREASED AORTIC VALVE VELOCITIES CONSISTENT WITH INCREASED OUTPUT. THEAORTIC VALVE LEAFLETS APPEAR TO MOVE NORMALLY. 4. MILD MITRAL REGURGITATION. 5. MILD TRICUSPID REGURGITATION WITH CALCULATED RIGHT VENTRICULAR SYSTOLICPRESSURE OF 75MMHG WHICH IS NORMAL. Interpreting Physician: DR MARLON CUNHA M.D. Read on: Dec 15 20142:31P Transcribed by: mrr On: Dec 15 2014 2:31P Approved Electronically by: DR MARLON CUNHA M.D. on: Dec 17 20143:52P Attending: JERONIMO COLINDRES Requesting: DR NATHAN PERRY Requesting Fax: -- Attending Fax: -- Attending ID: Requesting ID: [id number] Report To 1 ID: [id number] Report To 1 Name: DR ОЛЕГ HUSTON A Report To 1 FAX: -- NextGen Order #: Historical Provider MD XAVIER ECHO PROCEDURES Final Result * Intracardiac Echocardiogram (12/13/2014 2:48 PM GRADES 1 6 TUTOR) Anatomical Region Laterality Modality X-Ray Angiograph y 12/13/2014 2:48 PM GRADES 1 6 TUTOR Narrative 12/13/2014 3:05 PM GRADES 1 6 TUTOR This examination was converted from a legacy system and did not match a report, either due to it being a non-reportable examination, or a duplicate entry Procedure Note Provider, MD Zi - 07/01/2017 This examination was converted from a legacy system and did not match areport, either due to it being a non-reportable examination, or aduplicate entry Historical Provider MD XAVIER CARDIAC CATH PROCEDURE S Final Result * CORONARY ANGIOGRAPHY [id number] (12/13/2014 11:42 AM GRADES 1 6 TUTOR) Anatomical Region Laterality Modality X-Ray Angiograph y 12/13/2014 11:4 2 AM GRADES 1 6 TUTOR Narrative 12/16/2014 6:58 AM GRADES 1 6 TUTOR HEART CATH ??Acc#: ??[id number] DATE OF EXAM: ??Dec 13 2014 CLINICAL HISTORY: Chest pain. RESULT: CARDIAC CATHETERIZATION REPORT INDICATION: Javier Sanchez is a 44 year old male with suspicious sounding left upper extremity and left-sided chest discomfort. ??He was ruled out for an NM. ??EKGs were unremarkable. ??However, the patient does have a very strong family history of premature coronary artery disease and also dyslipidemia and borderline diabetes. ??Cardiac catheterization was advised because of patient is rather anxious. ??He wants to find out for sure what is going on with his heart. ??He understands the risks to include the following, but not limited to the following: ??, cerebrovascular accident, myocardial infarction, infection, vascular problems, dye reaction, dysrhythmias, pain, bleeding, renal failure, need for urgent CABG or stent placement. PROCEDURE: The patient was brought down to the Cardiac Endband Cutter Hand where his right groin was prepped and draped in the usual fashion. ??After infiltration with 1% Lidocaine, a 6 Bulgarian femoral artery sheath was placed over a J-tipped guidewire without any difficulties. ??Next, a 5 Bulgarian JR4 catheter was placed into the left ventricle for hemodynamics and pullback. ??The same catheter was then used for right coronary artery injection done in multiple views. ??The left main was also injected in multiple views using a 5 Bulgarian JL4 catheter. ??Finally, a 5 Bulgarian angled pigtail catheter was used for left ventriculography which was performed in the 30 JACQUES position. 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 Good hemostasis was obtained in the right groin after the AngioSeal device was deployed followed by manual pressure for 5 minutes. Fluoro time was 2.3 minutes with a total dye load of 118ml of Visipaque. FINDINGS: 1. Hemodynamics as follows: 1. Hemodynamics as follows: Left ventricular systolic pressure: 95mmHg Left ventricular end diastolic pressure: ?? 4mmHg Aortic systolic pressure: 95mmHg Aortic diastolic pressure: 50mmHg There is no gradient across the aortic valve upon pullback. 2. Injection of the right coronary artery reveals this to be a right dominant system. ??There is a large PDA followed by medium 1st posterolateral branch and small 2nd posterolateral branch. ??Diffuse 25% proximal to mid RCA stenosis. 3. Injection of left main reveals no ramus. ??The LAD is large with diffuse 25% mid to distal LAD stenosis. ??There is a medium 1st diagonal followed by a large 2nd diagonal branch. 4. The circumflex also comes from the left main and has a medium 1st OM, a small 2nd OM and a large branching 3rd OM. ??Diffuse 25% mid circumflex stenosis noted. 5. Left ventriculography reveals mildly diminished global LV function with estimated ejection fraction of 45-50%. ??No mitral regurgitation. IMPRESSION: 1. MILD CORONARY ARTERY DISEASE IN THIS RIGHT DOMINANT SYSTEM WITH DIFFUSE 25% MID TO DISTAL LAD STENOSIS, DIFFUSE 25% MID RCA STENOSIS AND DIFFUSE 25% MID CIRCUMFLEX STENOSIS. 2. NO MITRAL REGURGITATION. 3. MILDLY DIMINISHED GLOBAL LV FUNCTION WITH ESTIMATED EJECTION FRACTION OF 45- 50%. THE FINDINGS AND PLAN WERE DISCUSSED WITH DR. COLINDRES OVER THE PHONE. ??WE WILL GET ECHOCARDIOGRAM STUDY TO SEE IF THE LV FUNCTION IS INDEED SLIGHTLY DIMINISHED. ??DIET, EXERCISE AND THERAPEUTIC LIFESTYLE CHANGES DISCUSSED WITH THE PATIENT. Interpreting Physician: ??DR NATHAN PERRY M.D. ??Read on: ??Dec 15 2014 2:06P Transcribed by: ??mrr ??On: Dec 15 2014 ??2:06P Approved Electronically by: ??DR NATHAN PERRY M.D. ??on: ??Dec 16 2014 6:58A Attending: ??JERONIMO COLINDRES Requesting: ??DR NATHAN PERRY Requesting Fax: ??-- Attending Fax: ??-- Attending ID: ?? Requesting ID: ??[id number] Report To 1 ID: ??[id number] Report To 1 Name: ??DR ОЛЕГ HUSTON A Report To 1 FAX: ??-- NextGen Order #: Procedure Note Provider, MD Zi - 03/17/2017 HEART CATH Acc#: [id number] DATE OF EXAM: Dec 13 2014 CLINICAL HISTORY: Chest pain. RESULT: CARDIAC CATHETERIZATION REPORT INDICATION: Javier Sanchez is a 44 year old male with suspicious sounding leftupper extremity and left-sided chest discomfort. He was ruled out for anMI. EKGs were unremarkable. However, the patient does have a very strongfamily history of premature coronary artery disease and also dyslipidemiaand borderline diabetes. Cardiac catheterization was advised because ofpatient is rather anxious. He wants to find out for sure what is going onwith his heart. He understands the risks to include the following, but not limited to the following: ,cerebrovascular accident, myocardial infarction, infection, vascularproblems, dye reaction, dysrhythmias, pain, bleeding, renal failure, needfor urgent CABG or stent placement. PROCEDURE: The patient was brought down to the Cardiac Endband Cutter Hand where his rightgroin was prepped and draped in the usual fashion. After infiltrationwith 1% Lidocaine, a 6 Bulgarian femoral artery sheath was placed over aJ-tipped guidewire without any difficulties. Next, a 5 Bulgarian [id number] was placed into the left ventricle for hemodynamics and pullback.The same catheter was then used for right coronary artery injection donein multiple views. The left main was also injected in multiple viewsusing a 5 Bulgarian JL4 catheter. Finally, a 5 Bulgarian angled pigtailcatheter was used for left ventriculography which was performed in the 30RAO position. The patient tolerated the procedure well and left the cathlab without any chest pain. Good hemostasis was obtained in the rightgroin after the AngioSeal device was deployed followed by manual pressurefor 5 minutes. Fluoro time was 2.3 minutes with a total dye load of 118mlof Visipaque. FINDINGS: 1. Hemodynamics as follows: 1. Hemodynamics as follows: Left ventricular systolic pressure: 95mmHg Left ventricular end diastolic pressure: 4mmHg Aortic systolic pressure: 95mmHg Aortic diastolic pressure: 50mmHg There is no gradient across the aorticvalve upon pullback. 2. Injection of the right coronary artery reveals this to be a rightdominant system. There is a large PDA followed by medium 1stposterolateral branch and small 2nd posterolateral branch. Diffuse 25%proximal to mid RCA stenosis. 3. Injection of left main reveals no ramus. The LAD is large with widmzyt39% mid to distal LAD stenosis. There is a medium 1st diagonal followedby a large 2nd diagonal branch. 4. The circumflex also comes from the left main and has a medium 1st OM, asmall 2nd OM and a large branching 3rd OM. Diffuse 25% mid circumflexstenosis noted. 5. Left ventriculography reveals mildly diminished global LV function withestimated ejection fraction of 45-50%. No mitral regurgitation. IMPRESSION: 1. MILD CORONARY ARTERY DISEASE IN THIS RIGHT DOMINANT SYSTEM WITH [id number]% MID TO DISTAL LAD STENOSIS, DIFFUSE 25% MID RCA STENOSIS AND GWOLSHH70% MID CIRCUMFLEX STENOSIS. 2. NO MITRAL REGURGITATION. 3. MILDLY DIMINISHED GLOBAL LV FUNCTION WITH ESTIMATED EJECTION FRACTIONOF 45- 50%. THE FINDINGS AND PLAN WERE DISCUSSED WITH DR. COLINDRES OVER THEPHONE. WE WILL GET ECHOCARDIOGRAM STUDY TO SEE IF THE LV FUNCTION ISINDEED SLIGHTLY DIMINISHED. DIET, EXERCISE AND THERAPEUTIC LIFESTYLECHANGES DISCUSSED WITH THE PATIENT. Interpreting Physician: DR NATHAN PERRY M.D. Read on: Dec 15 20142:06P Transcribed by: bennett On: Dec 15 2014 2:06P Approved Electronically by: DR NATHAN PERRY M.D. on: Dec 16 20146:58A Attending: JERONIMO COLINDRES Requesting: DR NATHAN PERRY Requesting Fax: -- Attending Fax: -- Attending ID: Requesting ID: [id number] Report To 1 ID: [id number] Report To 1 Name: MASCHING, DR ОЛЕГ A Report To 1 FAX: -- NextGen Order #: us Historical Provider CV CARDIAC CATH PROCEDURE S Final Result * Urinalysis (12/13/2014 10:20 AM GRADES 1 6 TUTOR) Color, ur YELLOW YELLOW HISTORICAL RESULTS Clarity, ur CLEAR CLEAR HISTORIC AL RESULTS Specific gravity, ur 1.018 1.003 - 1.030 gu HISTORICAL RESULTS Leukocyte esterase, ur Negative NEGATIVE HISTORICAL RESULTS Nitrites, ur Negative NEGATIVE HISTORI MARIE RESULTS pH, ur 6.0 6.0 HISTORICAL RESULTS Protein, ur Negative NEGATIVE HISTORIC AL RESULTS Glucose, ur Negative NEGATIVE HISTORIC AL RESULTS Ketones, ur Negative NEGATIVE HISTORIC AL RESULTS Urobilinogen, quant, ur 0.2 0.2 - 1.0 mg/dl HISTORICAL RESULTS Bilirubin, ur Negative NEGATIVE HISTOR ICAL RESULTS U Blood Negative NEGATIVE HISTORICAL RESULTS Urine 12/13/2014 10:2 0 AM GRADES 1 6 TUTOR Jeronimo Colindres MD LAB BLOOD ORDERABLES Final Resul t HISTORICAL RESULTS * Serum lipid panel (12/13/2014 8:50 AM GRADES 1 6 TUTOR) Cholesterol 142 mg/dl HISTORIC AL RESULTS Comment: DESIRABLE = LESS THAN 200 MG/DL BORDERLINE HIGH = 200-239 MG/DL HIGH= GREATER THAN 239 MG/DL Triglycerides 172 mg/dl HISTOR ICAL RESULTS Comment: Current guidelines recommend that lipid screen be performed on fasting blood samples for heart risk stratification. NORMAL = LESS THAN 150 MG/DL BORDERLINE HIGH = 150-199 MG/DL HIGH = 200-499 MG/DL VERY HIGH = GREATER THAN OR EQUAL TO 500 MG/DL HDL 40 mg/dl HISTORICAL RESULTS Comment: LOW HDL CHOLESTEROL = Less than 40 mg/dL NORMAL HDL CHOLESTEROL = 40-59 mg/dL HIGH HDL CHOLESTEROL = Greater than 59 mg/dL Non-HDL cholesterol, calculated 102 mg/dl HISTORICAL RESULTS Comment: OPTIMAL LESS THAN 130 LOW RISK 130 -159 MODERATE RISK 160 - 189 HIGH RISK GREATER THAN OR EQUAL TO 190 LDL, calculated 68 HIST ORICAL RESULTS Comment: LESS THAN 100 MG/DL OPTIMAL 100 - 129 MG/DL NEAR OPTIMAL / ABOVE OPTIMAL 130 - 159 MG/DL BORDERLINE HIGH 160 - 189 MG/DL HIGH GREATER THAN OR = 190 MG/DL VERY HIGH LDL VALUES ARE NOT VALID WHEN THE TOTAL TRIGLYCERIDE IS GREATER THAN 300 MG/DL. Serum 12/13/2014 8:50 AM GRADES 1 6 TUTOR us Nathan Perry MD LAB BLOOD ORDERABLES Final Re sult HISTORICAL RESULTS * (ABNORMAL) Serum basic metabolic panel (12/13/2014 8:50 AM GRADES 1 6 TUTOR) Pathologist [facility] BUN 15.0 6.0 - 23.0 mg/dl HISTORICAL RESULTS Sodium 135 134 - 143 mmol/L HISTORICAL RESULTS Potassium, sr 4.4 3.4 - 5.0 mmol/L HISTORICAL RESULTS Chloride 101 99 - 108 mmol/L HISTORICAL RESULTS CO2 31 23 - 32 mmol/L HISTORICAL RESULTS Glucose 108 70 - 199 mg/dl HISTORICAL RESULTS Comment: Note:The glucose is assumed non fasting Fastin-99 mg/dl Random: 70-199 mg/dl Either a fasting glucose > 126 mg/dL or a random glucose > 200 mg/dL plus symptoms is diagnostic of diabetes when confirmed on another day. Fasting values > 100 mg/dl but < 125 mg/dL are diagnostic of impaired fasting glucose. New reference ranges implemented 10/05/2013. Creatinine 1.41(H) 0.60 - 1.30 mg/dl HISTORICAL RESULTS Comment: eGFR:58 ml/min/1.73sq.m if non -[place]. eGFR: >70 ml/min/1.73sq.m if -[place]. AVE GFR for 40-49 yr. age group: ??99 ml/min/1.73sq.m Calculated using MDRD Equation BUN/creat ratio 11 10 - 20 HIST ORICAL RESULTS A. gap 7 7 - 14 mmol/L HISTORICAL RESULTS Osmo, calc 271(L) 275 - 295 mOsm/kg HISTORICAL RESULTS Calcium 9.6 8.6 - 9.8 mg/dl HISTORICAL RESULTS Serum 12/13/2014 8:50 AM GRADES 1 6 TUTOR us Jeronimo Colindres MD LAB BLOOD ORDERABLES Final Resul t HISTORICAL RESULTS * (ABNORMAL) Blood cell count (CBC) (12/13/2014 8:50 AM GRADES 1 6 TUTOR) Pathologist [facility] WBC 11.0(H) 4.0 - 10.5 K/cumm HISTORICAL RESULTS RBC 4.48(L) 4.60 - 6.20 M/cumm HISTORICAL RESULTS Hgb 13.4(L) 14.0 - 18.0 g/dl HISTORICAL RESULTS Hct 39.5(L) 40.0 - 54.0 % HISTORICAL RESULTS MCV 88.2 77.0 - 97.0 fl HISTORICAL RESULTS MCH 29.9 23.0 - 34.0 pg HISTORICAL RESULTS MCHC 33.9 32.0 - 36.0 g/dl HISTORICAL RESULTS Rdw 14.9(H) 11.5 - 14.5 % HISTORICAL RESULTS Platelets 332 150 - 400 K/cumm HISTORICAL RESULTS MPV 10.1 7.4 - 10.4 fl HISTORICAL RESULTS Blood specimen (specimen) 12/13/2014 8:50 AM GRADES 1 6 TUTOR Jreonimo Colindres MD LAB BLOOD ORDERABLES Final Resul t HISTORICAL RESULTS * (ABNORMAL) Blood WBC cell morphologic exam, auto (12/13/2014 8:50 AM GRADES 1 6 TUTOR) Pathologist [facility] Lymphocytes 21.8(L) 25.0 - 33.0 % HISTORICAL RESULTS Monos 8.7 0.0 - 13.0 % HISTORICAL RESULTS Neutrophils 67.3 54.0 - 69.0 % HISTORICAL RESULTS Eosinophils 1.6 0.0 - 10.0 % HISTORICAL RESULTS Basophils 0.4 0.0 - 1.0 % HISTORICAL RESULTS Immature granulocytes 0.2 0.0 - 1.0 % HISTORICAL RESULTS Lymphocytes, abs 2.4 1.2 - 3.4 K/cumm HISTORICAL RESULTS Monocytes, absolute 1.0(L) 1.1 - 1.9 K/cumm HISTORICAL RESULTS Neutrophils, abs 7.4(H) 1.4 - 6.5 K/cumm HISTORICAL RESULTS Eosinophils, abs 0.2 0.0 - 0.7 cells/cum m HISTORICAL RESULTS Basophils, abs 0.0 0.0 - 0.2 K/cumm HISTORICAL RESULTS Immature granulocyte, abs 0.0 0.0 - 0.0 K/cumm HISTORICAL RESULTS Blood specimen (specimen) 12/13/2014 8:50 AM GRADES 1 6 TUTOR us Jeronimo Colindres MD LAB BLOOD ORDERABLES Final Resul t HISTORICAL RESULTS * Serum troponin I (12/13/2014 2:50 AM GRADES 1 6 TUTOR) Troponin I <0.04 0.00 - 0.10 ng/ml HISTORICAL RESULTS Serum 12/13/2014 2:50 AM GRADES 1 6 TUTOR Narrative HISTORICAL RESULTS - 12/13/2014 4:06 AM GRADES 1 6 TUTOR NEGATIVE: ??0.00 - 0.10 NG/ML INDETERMINATE: ??0.11 - 0.50 NG/ML POSITIVE: ??GREATER THAN 0.50 NG/ML us Олег Huston MD LAB BLOOD ORDERABLES Jeanine l Result Performing Organization Address [facility] de Phone Number HISTORICAL RESULTS * Discharge Laboratory Cumulative Report (12/13/2014 12:00 AM GRADES 1 6 TUTOR) 12/13/2014 Narrative HISTORICAL RESULTS - 12/14/2014 12:38 AM GRADES 1 6 TUTOR Patient No: [id number] ? [facility] Patient Name: JAVIER SANCHEZ ? [facility] Age: 44 YRS ?: 1970 ?Sex:M ?[address] )[phone] ?? Adm Dt: 12/12/2014 ?[place], [place] ??[address] Created: 12/14/2014 ??0038 ?? Pt. Type: B ? Discharge Dt: 12/13/2014 ? Pathologists: Marcia Barry MD Admit Dr. Carter Dr: JERONIMO COLINDRES MD ? BLOOD CELL COUNTS ?Collection Date: ?12/13/14 ? 12/12/14 ?Collection Time: ?0850 ? 2104 ? Ref Range: ?? Units: [4.00-10.50] /CMM ? WBC X 10^3 ? 10.96 H ?13.89 H [4.60-6.20] ??/CMM ? RBC X 10^6 ?4.48 L ? 4.64 [14.0-18.0] ??G/DL ? HGB ? 13.4 L ? 14.0 [40.0-54.0] ??% ?HCT ? 39.5 L ? 39.9 L [77.0-97.0] ??FL ? MCV ? 88.2 ? 86.0 [23.0-34.0] ??PG ? MCH ? 29.9 ? 30.2 [32.0-36.0] ??% ?MCHC ?33.9 ? 35.1 [11.5-14.5] ??% ?RDW ? 14.9 H ? 14.7 H [150-400] ?? /CMM ? PLT X 10^3 ? 332 ?347 ?BLOOD CELL DIFFERENTIAL ?Collection Date: ?12/13/14 ? 12/12/14 ?Collection Time: ?0850 ? 2104 ? Ref Range: ?? Units: [54.0-69.0] ??% ?NEUTROPHILS ? 67.3 ? 74.3 H [25.0-33.0] ??% ?LYMPHOCYTES ? 21.8 L ? 18.0 L [0.0-13.0] ??% ?MONOCYTES ?8.7 ?6.7 [0.0-10.0] ??% ?EOSINOPHILS ?1.6 ?0.6 [0.0-1.0] ?? % ?BASOPHILS ?0.4 ?0.3 ? /CMM ? A LYMPHOCYTE ? 2.4 ?2.5 [0.0-1.0] ?? % ?IMM GRAN % ? 0.2 ?0.1 [0.00-0.02] ??/CMM ? A IMM GRAN ?0.02 ? 0.02 [1.1-1.9] ?? /CMM ? A MONOCYTE ? 1.0 L ?0.9 L [1.4-6.5] ?? /CMM ? A NEUTROPHIL ? 7.4 H ? 10.3 H [0.0-0.7] ?? /CMM ? A EOSINOPHIL ? 0.2 ?0.1 [0.0-0.2] ?? /CMM ? A BASOPHIL ? 0.0 ?0.0 Footnotes and Symbols: L = Low, H = High ?? CONTINUED ?Page: ?? 1 Patient No: [id number] ? [facility] Patient Name: JAVIER SANCHEZ ? [facility] Age: 44 YRS ?: 1970 ?Sex:M ?[address] )[phone] ?? Adm Dt: 12/12/2014 ?[place] ??[address] Created: 12/14/2014 ??0038 ?? Pt. Type: B ? Discharge Dt: 12/13/2014 ? Pathologists: Marcia Barry MD Admit Dr. Carter Dr: JERONIMO COLINDRES MD ? GENERAL CHEMISTRY ?Collection Date: ?12/13/14 ? 12/12/14 ?Collection Time: ?0850 ? 2104 ? Ref Range: ?? Units: [< ?100] ?? pg/ml ?BNP ?13 f [134-143] ?? MMOL/L ? SODIUM ? 135 ?134 [3.4-5.0] ?? MMOL/L ? POTASSIUM ?4.4 ?3.3 L [99.0-108.0] MMOL/L ? CHLORIDE ? 101.0 ?100.0 [23.0-32.0] ??MMOL/L ? TOTAL CO2 ? 31.4 ? 25.4 ?? [7-14] ?MMOL/L ? ANION GAP ?7 ? 12 ??[70-199] ?? MG/DL ?GLUCOSE ?108 f ?120 f [275-295] ?? MOSM/K ? CALCULATED OSMO ?271 L [6.4-8.0] ?? G/DL ? TOTAL PROTEIN ? 7.5 [3.3-4.5] ?? G/DL ? ALBUMIN ? 4.1 [1.1-1.8] ?A/G RATIO ? 1.2 [8.6-9.8] ?? MG/DL ?CALCIUM ?9.6 ?9.7 [0.0-1.1] ?? MG/DL ?BILI TOTAL ?0.4 ??[44-125] ?? U/L ?ALK PHOS ? 91 ??[10-45] ?U/L ?AST(SGOT) ?31 f ??[15-70] ?U/L ?ALT(SGPT) ?70 f [6.0-23.0] ??MG/DL ?BUN ? 15.0 ? 15.0 Footnotes and Symbols: L = Low, f = Footnote BNP (09/03/08 -- Current) BNP REFERENCE RANGE <100 pg/ml GLUCOSE (10/27/13 -- Current) Note:The glucose is assumed non fasting Fastin-99 mg/dl Random: 70-199 mg/dl Either a fasting glucose > 126 mg/dL or a random glucose > 200 mg/dL plus symptoms is diagnostic of diabetes when confirmed on another day. Fasting values > 100 mg/dl but < 125 mg/dL are diagnostic of impaired fasting glucose. New reference ranges implemented 10/05/2013. AST(SGOT) (04/08/14 -- Current) ALT(SGPT) (06/16/13 -- Current) ?? CONTINUED ?Page: ?? 2 Patient No: [id number] ? [facility] Patient Name: JAVIER SANCHEZ ? [facility] Age: 44 YRS ?: 1970 ?Sex:M ?[address] )[phone] ?? Adm Dt: 12/12/2014 ?[place] ??[address] Created: 12/14/2014 ??0038 ?? Pt. Type: B ? Discharge Dt: 12/13/2014 ? Pathologists: Marcia Barry MD Admit Attend Dr: JERONIMO COLINDRES MD ? GENERAL CHEMISTRY ?Collection Date: ?12/13/14 ? 12/12/14 ?Collection Time: ?0850 ? 2104 ? Ref Range: ?? Units: ??[10-20] ? B/C RATIO ? 11 ? 11 [0.60-1.30] ??MG/DL ?CREATININE ?1.41 Hf ?1.37 Hf ?12/13/14 0850 eGFR:58 ml/min/1.73sq.m if non -[place]. eGFR: >70 ml/min/1.73sq.m if -[place]. AVE GFR for 40-49 yr. age group: ??99 ml/min/1.73sq.m Calculated using MDRD Equation FOOTNOTE ADDED ON ?? 12/13/14 ?? AT 1005 BY 999 ?12/12/14 2104 eGFR:60 ml/min/1.73sq.m if non -[place]. eGFR: >70 ml/min/1.73sq.m if -[place]. AVE GFR for 40-49 yr. age group: ??99 ml/min/1.73sq.m Calculated using MDRD Equation FOOTNOTE ADDED ON ?? 12/12/14 ?? AT 2136 BY 999 [1.5-2.2] ?? MG/DL ?MAGNESIUM ? 1.9 Footnotes and Symbols: H = High, f = Footnote ?? CONTINUED ?Page: ?? 3 Patient No: [id number] ? [facility] Patient Name: JAVIER SANCHEZ ? [facility] Age: 44 YRS ?: 1970 ?Sex:M ?[address] )[phone] ?? Adm Dt: 12/12/2014 ?[place], [place] ??[address] Created: 12/14/2014 ??0038 ?? Pt. Type: B ? Discharge Dt: 12/13/2014 ? Pathologists: Marcia Barry MD Admit Attend Dr: JERONIMO COLINDRES MD ? CARDIAC CHEMISTRY ?Collection Date: ?12/13/14 ? 12/13/14 ?Collection Time: ?0850 ? 0345 ? Ref Range: ?? Units: [0.00-0.10] ??NG/ML ?TROPONIN I ? <0.04 f ?<0.04 f ?Collection Date: ?12/12/14 ?Collection Time: ?2104 ? Ref Range: ?? Units: [0.00-0.10] ??NG/ML ?TROPONIN I ? <0.04 f ?LIPIDS ?Collection Date: ?12/13/14 ?Collection Time: ?0850 ? Ref Range: ?? Units: ? MG/DL ?CHOLESTEROL ?142 f ? MG/DL ?HDL CHOLESTEROL ? 40 f Footnotes and Symbols: f = Footnote TROPONIN I (09/20/11 -- Current) NEGATIVE: ??0.00 - 0.10 NG/ML INDETERMINATE: ??0.11 - 0.50 NG/ML POSITIVE: ??GREATER THAN 0.50 NG/ML CHOLESTEROL (12/07/10 -- Current) DESIRABLE = LESS THAN 200 MG/DL BORDERLINE HIGH = 200-239 MG/DL HIGH= GREATER THAN 239 MG/DL HDL CHOLESTEROL (12/07/10 -- Current) LOW HDL CHOLESTEROL = Less than 40 mg/dL NORMAL HDL CHOLESTEROL = 40-59 mg/dL HIGH HDL CHOLESTEROL = Greater than 59 mg/dL ?? CONTINUED ?Page: ?? 4 Patient No: [id number] ? [facility] Patient Name: JAVIER SANCHEZ ? [facility] Age: 44 YRS ?: 1970 ?Sex:M ?[address] )[phone] ?? Adm Dt: 12/12/2014 ?[place], [place] ??[address] Created: 12/14/2014 ??0038 ?? Pt. Type: B ? Discharge Dt: 12/13/2014 ? Pathologists: Marcia Barry MD Admit Dr. Carter Dr: JERONIMO COLINDRES MD ?LIPIDS ?Collection Date: ?12/13/14 ?Collection Time: ?0850 ? Ref Range: ?? Units: ? MG/DL ?TRIGLYCERIDES ?172 f ?12/13/14 0850 Current guidelines recommend that lipid screen be ??performed on fasting blood samples for heart risk stratification. FOOTNOTE ADDED ON ?? 12/13/14 ?? AT 1031 BY 999 ? MG/DL ?NON HDL CALC ? 102 f ?LDL CHOL CALC ? 68 f Footnotes and Symbols: f = Footnote TRIGLYCERIDES (03/11/13 -- Current) NORMAL = LESS THAN 150 MG/DL BORDERLINE HIGH = 150-199 MG/DL HIGH = 200-499 MG/DL VERY HIGH = GREATER THAN OR EQUAL TO 500 MG/DL NON HDL CALC (03/02/13 -- Current) OPTIMAL LESS THAN 130 LOW RISK 130 -159 MODERATE RISK 160 - 189 HIGH RISK GREATER THAN OR EQUAL TO 190 LDL CHOL CALC (03/12/13 -- Current) LESS THAN 100 MG/DL OPTIMAL 100 - 129 MG/DL NEAR OPTIMAL / ABOVE OPTIMAL 130 - 159 MG/DL BORDERLINE HIGH 160 - 189 MG/DL HIGH GREATER THAN OR = 190 MG/DL VERY HIGH LDL VALUES ARE NOT VALID WHEN THE TOTAL TRIGLYCERIDE IS GREATER THAN 300 MG/DL. ?? CONTINUED ?Page: ?? 5 Patient No: [id number] ? [facility] Patient Name: JAVIER SANCHEZ ? [facility] Age: 44 YRS ?: 1970 ?Sex:M ?[address] )[phone] ?? Adm Dt: 12/12/2014 ?[place], [place] ??[address] Created: 12/14/2014 ??0038 ?? Pt. Type: B ? Discharge Dt: 12/13/2014 ? Pathologists: Marcia Barry MD Admit Dr. Carter Dr: JERONIMO COLINDRES MD ?COAGULATION ? Units: ?? PROTIME ?INR ?APTT PAT ? Low: ??[10.9-14.8] ? [< ?? 36.0] ? Ref Range: ? SECS ?SECS ? 12/12/142103 ?12.5 ? 0.97 f ? 26.3 Footnotes and Symbols: f = Footnote INR (06/13/00 -- Current) RECOMMENDED RANGES FOR PROTIME INR: NOTE: THE INR HAS BEEN VALIDATED ONLY FOR PATIENTS ON STABLE ORAL ?ANTICOAGULANT THERAPY. ?2.0 - 3.0 ??PROPHYLAXIS OF VENOUS THROMBOSIS (HIGH RISK SURGERY) ?2.0 - 3.0 ??TREATMENT OF VENOUS THROMBOSIS ?2.0 - 3.0 ??TREATMENT OF PULMONARY EMBOLISM ?2.0 - 3.0 ??PREVENTION OF SYSTEMIC EMBOLISM ? TISSUE HEART VALVES ? AMI (TO PREVENT SYSTEMIC EMBOLISM)* ? VALVULAR HEART DISEASE ? ATRIAL FIBRILLATION ?2.5 - 3.5 ??MECHANICAL PROSTHETIC VALVES (HIGH RISK) ?2.0 - 3.0 ??BILEAFLET MECHANICAL VALVE IN AORTIC POSITION *If oral anticoagulant therapy is elected to prevent recurrent myocardial infarction, an INR of 2.5 to 3.5 is recommended, consistent with Food and Drug Administration recommendations. ?? CONTINUED ?Page: ?? 6 Patient No: [id number] ? [facility] Patient Name: JAVIER SANCHEZ ? [facility] Age: 44 YRS ?: 1970 ?Sex:M ?[address] )[phone] ?? Adm Dt: 12/12/2014 ?[place] ??[address] Created: 12/14/2014 ??0038 ?? Pt. Type: B ? Discharge Dt: 12/13/2014 ? Pathologists: Marcia Barry MD Admit Dr. Emma Jimenez: JERONIMO COLINDRES MD ?URINALYSIS ?Collection Date: ?12/13/14 ?Collection Time: ?1020 ? Ref Range: ?? Units: [YELLOW] ? U COLOR ? YELLOW ??[CLEAR] ? U APPEARANCE ? CLEAR [1.003-1.030] ? U SPEC GRAVITY ? 1.018 [NEGATIVE] ?U LEUKO ESTRASE ? NEGATIVE [NEGATIVE] ?U NITRITE ? NEGATIVE ?? [6.0] ?U PH ? 6.0 [NEGATIVE] ?U PROTEIN ? NEGATIVE [NEGATIVE] ?U GLUCOSE ? NEGATIVE [NEGATIVE] ?U KETONES ? NEGATIVE [0.2- 1.0] ?UROBILINOGEN ? 0.2 [NEGATIVE] ?U BILIRUBIN ? NEGATIVE [NEGATIVE] ?U BLOOD ? NEGATIVE ?? END OF CHART ? Page: ?? 7 Historical Provider LAB BLOOD ORDERABLES Jeanine l Result Performing Organization Address [facility] de Phone Number HISTORICAL RESULTS * ELECTROCARDIOGRAPHY (ECG) (12/13/2014) Narrative 12/13/2014 Ordered by an unspecified provider. Historical Provider MD ECG ORDERABLES Final Res ult * Serum troponin I (12/12/2014 9:45 PM GRADES 1 6 TUTOR) Troponin I <0.04 0.00 - 0.10 ng/ml HISTORICAL RESULTS Serum 12/12/2014 9:45 PM GRADES 1 6 TUTOR Narrative HISTORICAL RESULTS - 12/12/2014 10:55 PM GRADES 1 6 TUTOR NEGATIVE: ??0.00 - 0.10 NG/ML INDETERMINATE: ??0.11 - 0.50 NG/ML POSITIVE: ??GREATER THAN 0.50 NG/ML Олег Huston MD LAB BLOOD ORDERABLES Jeanine l Result Performing Organization Address [facility] Phone Number HISTORICAL RESULTS * XR Chest PA Lateral 2 View (12/12/2014 9:10 PM GRADES 1 6 TUTOR) Anatomical Region Laterality Modality Body, Chest N/A Radiographic Sandra ging 12/12/2014 9:10 PM GRADES 1 6 TUTOR Narrative 12/13/2014 11:00 AM GRADES 1 6 TUTOR XR Chest 2 Views ?[id number] ??Acc#: ??[id number] DATE OF EXAM: ??Dec 12 2014 CLINICAL HISTORY: Chest pain. ??Elevated blood pressure. RESULT: PA and lateral radiographs of the chest with no prior study for review demonstrates a normal sized heart. ??Lungs are clear. IMPRESSION: NO ACTIVE DISEASE. Interpreting Physician: ??KEY CARVALHO M.D. ??Read on: ??Dec 13 2014 ??6:22A Transcribed by: ??mrr ??On: Dec 13 2014 10:59A Approved Electronically by: ??KEY CARVALHO M.D. ??on: ??Dec 13 2014 11:00A Attending: ??JERONIMO COLINDRES Requesting: ??DR ОЛЕГ HUSTON Requesting Fax: ??-- Attending Fax: ??-- Attending ID: ?? Requesting ID: ??[id number] Report To 1 ID: ??[id number] Report To 1 Name: ??DR ОЛЕГ HUSTON Report To 1 FAX: ??-- NextGen Order #: Procedure Note Provider, MD Zi - 03/17/2017 XR Chest 2 Views [id number] Acc#: [id number] DATE OF EXAM: Dec 12 2014 CLINICAL HISTORY: Chest pain. Elevated blood pressure. RESULT: PA and lateral radiographs of the chest with no prior study for reviewdemonstrates a normal sized heart. Lungs are clear. IMPRESSION: NO ACTIVE DISEASE. Interpreting Physician: KEY CARVALHO M.D. Read on: Dec 13 2014 6:22A Transcribed by: bennett On: Dec 13 2014 10:59A Approved Electronically by: KEY CARVALHO M.D. on: Dec 13 2014 11:00A Attending: JERONIMO COLINDRES Requesting: DR ОЛЕГ HUSTON Requesting Fax: -- Attending Fax: -- Attending ID: Requesting ID: [id number] Report To 1 ID: [id number] Report To 1 Name: DR ОЛЕГ HUSTON Report To 1 FAX: -- NextGen Order #: us Historical Provider IMG XR PROCEDURES Final R esult * Plasma partial thromboplastin time (PTT) (12/12/2014 9:04 PM GRADES 1 6 TUTOR) APTT 26.3 -<36. seconds HISTOR ICAL RESULTS Plasma 12/12/2014 9:04 PM GRADES 1 6 TUTOR us Mega Dave MD LAB BLOOD ORDERABLES Final Res ult HISTORICAL RESULTS * Plasma prothrombin time (PT) (12/12/2014 9:04 PM GRADES 1 6 TUTOR) Pathologist [facility] Prothrombin time (PT) 12.5 10.9 - 14.8 seconds HISTORICAL RESULTS INR 0.97 HISTORICAL RESULTS Comment: RECOMMENDED RANGES FOR PROTIME INR: NOTE: THE INR HAS BEEN VALIDATED ONLY FOR PATIENTS ON STABLE ORAL ?ANTICOAGULANT THERAPY. ?2.0 - 3.0 ??PROPHYLAXIS OF VENOUS THROMBOSIS (HIGH RISK SURGERY) ?2.0 - 3.0 ??TREATMENT OF VENOUS THROMBOSIS ?2.0 - 3.0 ??TREATMENT OF PULMONARY EMBOLISM ?2.0 - 3.0 ??PREVENTION OF SYSTEMIC EMBOLISM ? TISSUE HEART VALVES ? AMI (TO PREVENT SYSTEMIC EMBOLISM)* ? VALVULAR HEART DISEASE ? ATRIAL FIBRILLATION ?2.5 - 3.5 ??MECHANICAL PROSTHETIC VALVES (HIGH RISK) ?2.0 - 3.0 ??BILEAFLET MECHANICAL VALVE IN AORTIC POSITION *If oral anticoagulant therapy is elected to prevent recurrent myocardial infarction, an INR of 2.5 to 3.5 is recommended, consistent with Food and Drug Administration recommendations. Plasma 12/12/2014 9:04 PM GRADES 1 6 TUTOR Mega Dave MD LAB BLOOD ORDERABLES Final Res ult Performing Organization Address [facility] de Phone Number HISTORICAL RESULTS * Serum magnesium (12/12/2014 9:04 PM GRADES 1 6 TUTOR) [facility] Magnesium 1.9 1.5 - 2.2 mg/dl HISTORICAL RESULTS Serum 12/12/2014 9:04 PM GRADES 1 6 TUTOR Mega Dave MD LAB BLOOD ORDERABLES Final Res ult Performing Organization Address [facility] de Phone Number HISTORICAL RESULTS * (ABNORMAL) Blood cell count (CBC) (12/12/2014 9:04 PM GRADES 1 6 TUTOR) WBC 13.9(H) 4.0 - 10.5 K/cumm HISTORICAL RESULTS MPV 10.0 7.4 - 10.4 fl HISTORICAL RESULTS RBC 4.64 4.60 - 6.20 M/cumm HISTORICAL RESULTS Hgb 14.0 14.0 - 18.0 g/dl HISTORICAL RESULTS Hct 39.9(L) 40.0 - 54.0 % HISTORICAL RESULTS MCV 86.0 77.0 - 97.0 fl HISTORICAL RESULTS MCH 30.2 23.0 - 34.0 pg HISTORICAL RESULTS MCHC 35.1 32.0 - 36.0 g/dl HISTORICAL RESULTS Rdw 14.7(H) 11.5 - 14.5 % HISTORICAL RESULTS Platelets 347 150 - 400 K/cumm HISTORICAL RESULTS Blood specimen (specimen) 12/12/2014 9:04 PM GRADES 1 6 TUTOR Mega Dave MD LAB BLOOD ORDERABLES Final Res ult HISTORICAL RESULTS * (ABNORMAL) Blood WBC cell morphologic exam, auto (12/12/2014 9:04 PM GRADES 1 6 TUTOR) Pathologist [facility] Lymphocytes 18.0(L) 25.0 - 33.0 % HISTORICAL RESULTS Monos 6.7 0.0 - 13.0 % HISTORICAL RESULTS Neutrophils 74.3(H) 54.0 - 69.0 % HISTORICAL RESULTS Eosinophils 0.6 0.0 - 10.0 % HISTORICAL RESULTS Basophils 0.3 0.0 - 1.0 % HISTORICAL RESULTS Immature granulocytes 0.1 0.0 - 1.0 % HISTORICAL RESULTS Lymphocytes, abs 2.5 1.2 - 3.4 K/cumm HISTORICAL RESULTS Monocytes, absolute 0.9(L) 1.1 - 1.9 K/cumm HISTORICAL RESULTS Neutrophils, abs 10.3(H) 1.4 - 6.5 K/cumm HISTORICAL RESULTS Eosinophils, abs 0.1 0.0 - 0.7 cells/cum m HISTORICAL RESULTS Basophils, abs 0.0 0.0 - 0.2 K/cumm HISTORICAL RESULTS Immature granulocyte, abs 0.0 0.0 - 0.0 K/cumm HISTORICAL RESULTS Blood specimen (specimen) 12/12/2014 9:04 PM GRADES 1 6 TUTOR us Mega Dave MD LAB BLOOD ORDERABLES Final Res ult HISTORICAL RESULTS * (ABNORMAL) Serum comprehensive metabolic panel (12/12/2014 9:04 PM GRADES 1 6 TUTOR) BUN 15.0 6.0 - 23.0 mg/dl HISTORICAL RESULTS Sodium 134 134 - 143 mmol/L HISTORICAL RESULTS Potassium, sr 3.3(L) 3.4 - 5.0 mmol/L HISTORICAL RESULTS Chloride 100 99 - 108 mmol/L HISTORICAL RESULTS CO2 25 23 - 32 mmol/L HISTORICAL RESULTS Glucose 120 70 - 199 mg/dl HISTORICAL RESULTS Comment: Note:The glucose is assumed non fasting Fastin-99 mg/dl Random: 70-199 mg/dl Either a fasting glucose > 126 mg/dL or a random glucose > 200 mg/dL plus symptoms is diagnostic of diabetes when confirmed on another day. Fasting values > 100 mg/dl but < 125 mg/dL are diagnostic of impaired fasting glucose. New reference ranges implemented 10/05/2013. Creatinine 1.37(H) 0.60 - 1.30 mg/dl HISTORICAL RESULTS Comment: eGFR:60 ml/min/1.73sq.m if non -[place]. eGFR: >70 ml/min/1.73sq.m if -[place]. AVE GFR for 40-49 yr. age group: ??99 ml/min/1.73sq.m Calculated using MDRD Equation BUN/creat ratio 11 10 - 20 HIST ORICAL RESULTS A. gap 12 7 - 14 mmol/L HISTORICAL RESULTS Protein, sr 7.5 6.4 - 8.0 g/dl HISTORICAL RESULTS Alb 4.1 3.3 - 4.5 g/dl HISTORICAL RESULTS Alb/glob ratio 1.2 1.1 - 1.8 HISTO RICAL RESULTS Calcium 9.7 8.6 - 9.8 mg/dl HISTORICAL RESULTS Bilirubin 0.4 0.0 - 1.1 mg/dl HISTORICAL RESULTS Alk phos 91 44 - 125 Units/L HISTORICAL RESULTS AST 31 10 - 45 Units/L HISTORICAL RESULTS ALT 70 15 - 70 Units/L HISTORICAL RESULTS Serum 12/12/2014 9:04 PM GRADES 1 6 TUTOR Mega Dave MD LAB BLOOD ORDERABLES Final Res ult Performing Organization Address [facility] de Phone Number HISTORICAL RESULTS * Blood B-type natriuretic peptide (BNP) (12/12/2014 3:04 PM GRADES 1 6 TUTOR) BNP 13 -<100 pg/ml HISTORIC AL RESULTS Blood specimen (specimen) 12/12/2014 3:04 PM GRADES 1 6 TUTOR Narrative HISTORICAL RESULTS - 12/12/2014 4:40 PM GRADES 1 6 TUTOR BNP REFERENCE RANGE <100 pg/ml Mega Dave MD LAB BLOOD ORDERABLES Final Res ult Performing Organization Address [facility] Phone Number HISTORICAL RESULTS * Serum troponin I (12/12/2014 3:04 PM GRADES 1 6 TUTOR) Troponin I <0.04 0.00 - 0.10 ng/ml HISTORICAL RESULTS Serum 12/12/2014 3:04 PM GRADES 1 6 TUTOR Narrative HISTORICAL RESULTS - 12/12/2014 3:36 PM GRADES 1 6 TUTOR NEGATIVE: ??0.00 - 0.10 NG/ML INDETERMINATE: ??0.11 - 0.50 NG/ML POSITIVE: ??GREATER THAN 0.50 NG/ML Mega Dave MD LAB BLOOD ORDERABLES Final Res ult Performing Organization Address [facility] de Phone Number HISTORICAL RESULTS * ELECTROCARDIOGRAPHY (ECG) (12/12/2014) Narrative 12/12/2014 Ordered by an unspecified provider. 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
--- OUTSIDE RECORDS SUMMARY | 2024-11-24 10:12 | XMS_ITS | Encounter Summary ---
Author Organization [facility] Facility Care Team Providers Care Manager Risk Name Role Phone Unavailable Primary Care Provider Unavailabl e Encounter Details Date Type Department Care Team (Late st Contact Info) Description 01/20/2008 11:08 AM TRANSPORTATION SPECIALIST - 01/22/2008 12:15 PM TRANSPORTATION SPECIALIST Hospital Encounter [facility] [place] [id number] [id number] Social History Tobacco Use Types Packs/Day Years Used Date Smoking Tobacco: Never Assessed Sex and Gender Information Value Date Recorded Sex Assigned at Not on file Legal Sex Male 9:12 AM TRANSPORTATION SPECIALIST Gender Identity Not on file Sexual Orientation Not on file documented as of this encounter Plan of Treatment Not on file documented as of this encounter Visit Diagnoses Not on filedocumented in this encounter
--- OUTSIDE RECORDS SUMMARY | 2024-11-24 10:12 | XMS_ITS | Encounter Summary ---
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 Role Phone Az Allison MD Primary Care Provider [phone] Reason for Referral * Diagnostic Imaging (Routine) - Closed Specialty Diagnoses / Procedures Referred By Monster blackwell Referred To Contact Diagnoses Cough Procedures XR Chest Pa Lateral 2 Vw Paula Bell NP Phone: tel: fax: [facility] Referral ID Status Reason Start Date Expiration Date Visits Re quested Visits Authorized [id number] Closed 02/25/2019 09/05/2020 1 1 Reason for Visit * Reason Comments Cough Sore Throat Encounter Details Date Type Department Care Team (Late st Contact Info) Description 02/25/2019 1:30 PM CDT Office Visit [facility] [address] [place] [phone] Paula Bell NP [address] [place] [address] Cough (Primary Dx); Chronic obstructive pulmonary disease, unspecified COPD type (CMS/HCC); Swollen lymph nodes; Dysfunction of both eustachian tubes Social History Tobacco Use Types Packs/Day Years Used Date Smoking Tobacco: Former Cigarettes 1 24 0 07/14/1990 - 06/25/2014 Smokeless Tobacco: Never Alcohol Use Standard Drinks/Week Comments No 0 (1 standard drink = 0.6 oz pur e alcohol) Sex and Gender Information Value Date Recorded Sex Assigned at Not on file 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 Gender Identity Not on file Sexual Orientation Not on file documented as of this encounter Last Filed Vital Signs Vital Sign Reading Time Taken Comments Blood Pressure 128/86 02/25/2019 1:22 PM CDT Pulse 60 02/25/2019 1:22 PM CDT Temperature 36.6 ??C (97.9 ??F) 02/25/2019 1:22 PM CD T Respiratory Rate 20 02/25/2019 1:22 PM CDT Oxygen Saturation 98% 02/25/2019 1:22 PM CDT Inhaled Oxygen Concentration - - Weight 115.2 kg (254 lb) 02/25/2019 1:22 PM CDT Height 167.6 cm (5' 6 ) 02/25/2019 1:22 PM CDT Body Mass Index 41 02/25/2019 1:22 PM CDT documented in this encounter Patient Instructions * Patient Instructions* Paula Bell NP - 02/25/2019 1:30 PM CDT ORDERS to STAFF: Chest Xray today - will call with results Albuterol inhaler 2 puffs every 4-6 hours for coughing as needed. Continue Symbicort 2 puffs up to 2 days. OTC Afrin 2 puffs twice daily for 3 days OR nightly for 1 week relieve nasal obstruction Robitussin DM or Delsym at nighttime for coughing. Guaifenesin (mucinex) 400-800mg 2-4 times daily. Try to keep fluid flowing through the sinus, avoid dry mucus plugging in the sinus by staying off of antihistamine and decongestant tablets Advised against Sudafed as it will cause palpitations and elevated blood pressure Increase water intake. Cool mist humidifier at bedside. May need to elevate head of bed at nighttime. Vicks vaporub on chest/feet. Cover mouth and nose while out in the elements. Practice good hand hygiene regularly. Use one tissue and dump it. Call AMS if symptoms do not improve in 10 days. Follow-up with AMS for regularly scheduled appointments or sooner for acute care needs. documented in this encounter Progress Notes * Paula Bell NP - 02/25/2019 1:30 PM CDT Images from the original note were not included. Subjective/Objective Patient ID: Javier Sanchez is a 48 y.o. male presenting in office today with chief complaint of sore throat, cough, unmeasured fevers. Vitals: 02/25/19 1322 BP: 128/86 Pulse: 60 Resp: 20 Temp: 36.6 ??C (97.9 ??F) SpO2: 98% Weight: 115.2 kg (254 lb) Height: 167.6 cm (5' 6 ) Chief Complaint Cough and Sore Throat She presents with sore throat, cough, ear itching, and unmeasured fevers the past 4 days. His coughing is worse at nighttime. 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 He was noted to have an infection of his right upper molar, he continues to have some mild tooth discomfort, he just completed clindamycin (7 day treatment) yesterday. He is returning to the dentist on 01/31/19, Dr. Bk Johnson in [place]. He has noticed he has a right swollen lymph node that hasn't went down in size. He has some mild discomfort of the right upper chest when taking deep breaths only. He has been using the symbicort QD and Albuterol PRN, and cough drops. Denies measured fevers, wheezing, hemoptysis, chest pain, arm pain, exposure to strep, N/V/D, extremity edema. Review of Systems Constitutional: Negative for chills and fatigue. Fever: unmeasured. HENT: Positive for dental problem, postnasal drip, rhinorrhea and sore throat (intermittent worse in the morning). Negative for congestion, ear discharge, facial swelling, mouth sores, trouble swallowing and voice change. Ear pain: no pain, inner ear itching. Respiratory: Positive for cough. Negative for shortness of breath and wheezing. Cardiovascular: Negative for palpitations and leg swelling. Chest pain: discomfort of upper right chest with deep coughing only. Gastrointestinal: Negative for abdominal pain, diarrhea, nausea and vomiting. Musculoskeletal: Negative for myalgias. Skin: Negative for pallor. Neurological: Negative for dizziness and headaches. Physical Exam Constitutional: He is oriented to person, place, and time. He appears well- developed. No distress. HENT: Head: Normocephalic. Right Ear: Tympanic membrane, external ear and ear canal normal. Left Ear: Tympanic membrane, external ear and ear canal normal. Nose: Rhinorrhea present. Mouth/Throat: Uvula is midline and mucous membranes are normal. He does not have dentures. No oral lesions. No dental abscesses or uvula swelling. Posterior oropharyngeal erythema (mild) present. No posterior oropharyngeal edema. Tonsils are 0 on the right. Tonsils are 0 on the left. Continued right molar discomfort (improved) - f/u with Dentist on 03/03 scheduled for additional work. No signs of infection or abscess in the mouth Eyes: Pupils are equal, round, and reactive to light. EOM are normal. Neck: Normal range of motion. Neck supple. No thyromegaly present. Cardiovascular: Normal rate, regular rhythm and normal heart sounds. No murmur heard. Pulses: Radial pulses are 2+ on the right side, and 2+ on the left side. Posterior tibial pulses are 2+ on the right side, and 2+ on the left side. Pulmonary/Chest: Effort normal and breath sounds normal. No respiratory distress. He has no wheezes. He exhibits no tenderness. No reproducible pain on palpation of the chest wall Musculoskeletal: He exhibits no edema. Lymphadenopathy: Right tonsilar lymph node swollen, shotty, and mildly tender Neurological: He is alert and oriented to person, place, and time. Skin: Skin is warm and dry. Capillary refill takes less than 2 seconds. Psychiatric: He has a normal mood and affect. His behavior is normal. Assessment/Plan Diagnoses and all orders for this visit: Cough (R05) (Primary) - XR Chest Pa Lateral 2 Vw; Future Chronic obstructive pulmonary disease, unspecified COPD type (CMS/HCC) (J44.9) Swollen lymph nodes (R59.9) Dysfunction of both eustachian tubes (H69.83) Chest Xray today for right upper chest pain with deep breathing only- will call with results - Noted clear Xray. Completed 7 days of clindamycin yesterday for dental work. No antibiotic will be started today - suspect this to be URI and lungs are clear on exam. Albuterol inhaler 2 puffs every 4-6 hours for coughing as needed. Continue Symbicort 2 puffs up to 2 days. OTC Afrin 2 puffs twice daily for 3 days OR nightly for 1 week relieve nasal obstruction Robitussin DM or Delsym at nighttime for coughing. Guaifenesin (mucinex) 400-800mg 2-4 times daily. Try to keep fluid flowing through the sinus, avoid dry mucus plugging in the sinus by staying off of antihistamine and decongestant tablets Advised against Sudafed as it will cause palpitations and elevated blood pressure Increase water intake. Cool mist humidifier at bedside. May need to elevate head of bed at nighttime. Vicks vaporub on chest/feet. Cover mouth and nose while out in the elements. Practice good hand hygiene regularly. Use one tissue and dump it. Call AMS if symptoms do not improve in 10 days. Follow-up with AMS for regularly scheduled appointments or sooner for acute care needs. symbicort samples x2 given today Paula Bell NP Cosigned by Az Allison MD at 03/01/2019 5:16 PM CDT documented in this encounter Plan of Treatment Not on file documented as of this encounter Results * XR Chest Pa [...] radiographic evidence of pulmonary disease. us Paula Opalkaitlynn Bell [facility] IMG XR PROCEDURES Final Res ult documented in this encounter Visit Diagnoses Diagnosis Cough- Primary Chronic obstructive pulmonary disease, unspecified COPD type (HCC) Swollen lymph nodes Enlargement of lymph nodes Dysfunction of both eustachian tubes Cough documented in this encounter Discontinued Medications Medication Sig Discontinue Reason Start Date End Da te clindamycin (CLEOCIN) 300 mg capsule TAKE ONE CAPSULE BY MOUTH EVERY 6 HOURS TILL GONE Therapy completed 02/16/2019 02/25/2019 documented as of this encounter Historical Medications * This list may reflect changes made after this encounter. 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
== END 2024-11-16 08:53 | disposition home or self-care (01) ==
LOC: ANHLAB 11-17 08:53
PROVIDERS: PCP Internal Medicine; Visit Provider Surgery
DX: D12.0 Benign neoplasm of cecum (principal); K63.5 Polyp of colon; R19.5 Other fecal abnormalities
CPT/HCPCS: 88305

== ENCOUNTER 2024-12-30 12:26 | Outpatient (CLI) | payer MEDICARE, OTHER, SELFPAY ==
--- OUTSIDE RECORDS SUMMARY | 2024-12-30 13:31 | XMS_ITS | Encounter Summary ---
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 Name Role Phone Pascale Wolff MD Unavailable Rudi Patel MD Unavailable [phone] Hai Pradhan MD Primary Care Provider [phone] Reason for Visit * Auth/Cert (Routine) Specialty Diagnoses / Procedures Referred By Monster blackwell Referred To Contact Diagnoses Abnormal cardiovascular stress test Abnormal cardiovascular stress test [R94.39] Procedures LEFT HEART CATHETERIZATION WITH CORONARY ANGIOGRAPHY AND WITH OR WITHOUT LEFT VENTRICULOGRAM [id number] Referral ID Status Reason Start Date Expiration Date Visits Re quested Visits Authorized [id number] 1 1 Encounter Details Date Type Department Care Team (Latest Contact Info) Description 12/30/2024 6:32 AM ASSOCIATE DRAFTER - 12/30/2024 11:50 AM ASSOCIATE DRAFTER Hospital Encounter [facility] Cardiac Catheterization Lab [address] [place] [address] Polly Null MD [address] [place] [id number] Abnormal cardiovascular stress test Discharge Disposition: Discharge to home or self [...] making you feel afraid or unsafe? Denies 12/30/2024 Sex and Gender Information Value Date Recorded Sex Assigned at Not on file Legal Sex Male 9:12 AM ASSOCIATE DRAFTER Gender Identity Not on file Sexual Orientation Not on file documented as of this encounter Last Filed Vital Signs Vital Sign Reading Time Taken Comments Blood Pressure 136/74 12/30/2024 11:20 AM ASSOCIATE DRAFTER Pulse 83 12/30/2024 11:25 AM ASSOCIATE DRAFTER Temperature 37 ??C (98.6 ??F) 12/30/2024 7:50 AM ASSOCIATE DRAFTER Respiratory Rate - - Oxygen Saturation 96% 12/30/2024 11:25 AM ASSOCIATE DRAFTER Inhaled Oxygen Concentration - - Weight 106.1 kg (234 lb) 12/30/2024 7:50 AM ASSOCIATE DRAFTER Height 170.2 cm (5' 7 ) 12/30/2024 7:50 AM ASSOCIATE DRAFTER Body Mass Index 36.65 12/30/2024 7:50 AM ASSOCIATE DRAFTER documented in this encounter Discharge Instructions * Discharge Instructions* Lilian Butcher RN - 12/30/2024 10:01 AM ASSOCIATE DRAFTER Moderate Sedation WHAT YOU NEED TO KNOW: Moderate sedation, or conscious sedation, is medicine used during procedures to help you feel relaxed and calm. You will be awake and able to follow directions without anxiety or pain. You will remember little to none of the procedure. You may feel tired, weak, or unsteady on your feet after you get sedation. You may also have trouble concentrating or short-term memory loss. These symptoms should go away in 24 hours or less. DISCHARGE INSTRUCTIONS: Call 911 or have someone else call for any of the following: You have sudden trouble breathing. You cannot be woken. Seek care immediately if: You have a severe headache or dizziness. Your heart is beating faster than usual. Contact your healthcare provider if: You have a fever over 100*F You have nausea or are vomiting for more than 8 hours after the procedure. Your skin is itchy, swollen, or you have a rash. You have questions or concerns about your condition or care. Self-care: Have someone stay with you for 24 hours. This person can drive you to errands and help you do things around the house. This person can also watch for problems. Rest and do quiet activities. Stand up slowly to prevent dizziness and falls. Take short walks around the house with another person. Do not drive or use dangerous machines or tools for 48 hours. You may injure yourself or others. Examples include a lawnmower, saw, or drill. Do not make important decisions for 24 hours. For example, do not sign important papers or invest money. Drink liquids as directed. Liquids help flush the sedation medicine out of your body. Ask how much liquid to drink each day and which liquids are best for you. Eat small, frequent meals to prevent nausea and vomiting. Start with clear liquids such as juice orbroth. If you do not vomit after clear liquids, you can eat your usual foods. Do not drink alcohol or take medicines that make you drowsy. This includes medicines that help you sleep and anxiety medicines. Ask your healthcare provider if it is safe for you to take pain medicine. Follow up with your healthcare provider as directed: Write down your questions so you remember to ask them during your visits. Cardiac Cath Discharge Instructions Activity: -No heavy lifting (over 10 pounds) for 1 week -No driving for 2 days AFTER procedure -No strenuous activity with affected leg for one week (i.e. Jogging, swimming, running, raking, shoveling, or mowing lawn) -No exercising or excessive use of stairs for 1 week -Avoid alcohol for 24 hours Puncture Site: -Remove dressing (anytime) next day. -Wash with soap and water daily in shower (to prevent infection, a shower is preferred to a tub bath for at least a week). -Do not apply any creams or lotions to puncture site. What to watch for: -Increased bruising -Swelling or hardening around site (hematoma-bleeding underneath the skin, call 911) -Temperature greater than 100*F (call doctor's office) -Redness, drainage, or foul odor at puncture site (?sign of infection--call doctor's office) -Pain that will not go away (check puncture site, monitor for hematoma, O.T.C. pain medication) -Bleeding (arterial puncture--call 911) You may develop scar tissue at the puncture site. This normal and will feel like a small lump underthe skin. You may feel this bump for some time. If any of the above occur or you have any questions contact your Faculty Research Assistant and follow up with your Primary Care Physician as instructed. Doctor office phone number: [phone] CIATE DRAFTER documented in this encounter Medications at Time of Discharge aspirin 81 mg tablet Take 1 tablet (81 mg total) by mouth daily Colace 100 mg capsule Take 1 capsule (100 mg total) by mouth 2 (two) times a day as needed for constipation 08/18/2022 cyclobenzaprine (FLEXERIL) 10 mg tablet Take 1 tablet (10 mg total) by mouth 3 (three) times a day as needed for muscle spasms DULoxetine DR (CYMBALTA) 60 mg capsuleIndication s:Chronic midline low back pain without sciatica,Persiste nt mood disorder (HCC) TAKE 1 CAPSULE (60 MG TOTAL) BY MOUTH DAILY 90 capsule 1 10/02/2021 losartan (COZAAR) 100 mg tabletIndications :Essential hypertension TAKE 1 TABLET (100 MG TOTAL) BY MOUTH DAILY 90 tablet 3 10/23/2021 meloxicam (MOBIC) 15 mg tablet Take 1 tablet (15 mg total) by mouth nightly 11/26/2024 multivitamin (MULTIPLE VITAMINS) tablet tablet take 1 by Oral route daily 0 0 09/06/2016 rosuvastatin (CRESTOR) 5 mg tablet Take 1 tablet (5 mg total) by mouth every morning 12/08/2024 albuterol HFA (PROVENTIL HFA,VENTOLIN HFA,PROAIR HFA) 90 mcg/actuation inhalerIndication s:Bronchospasm Prevention Inhale 2 puffs every 6 (six) hours as needed for wheezing 1 Inhaler 5 07/22/2020 Ozempic 2 mg/dose (8 mg/3 mL) pen injector injection Inject 0.75 mL (2 mg total) under the skin every 7 days Q Saturday12/01/2024 documented as of this encounter Discharge Disposition Disposition Code Departure Means Destination Comment s Discharge to home or self care documented in this encounter H&P Notes * Polly Null MD - 12/30/2024 8:00 AM CST S and benefits of cardiac catheterization discussed with the patient agrees to proceed CIATE DRAFTER Source Note - Polly Null MD - 12/21/2024 8:15 AM ASSOCIATE DRAFTER [facility] CARDIOLOGY DATE OF VISIT: 12/21/2024 CHIEF COMPLAINT Chief Complaint Patient presents with New Patient Transferring from [facility]. Abn stress test HPI Javier Sanchez is a 54 y.o. male with past history of hypertension, sleep apnea on CPAP, morbid obesity who also had previous cardiac catheterization 2014 that shows nonobstructive disease in the RCA, lad and left circumflex artery. He did smoke for about 10 years and quit 13 years ago. Endorses family history of coronary artery disease in the grandfather. He was experiencing dyspnea on exertion especially going up steps and therefore underwent stress testing June 2024 that came positive for ischemia and small territory. He mentions that he was started on Ozempic and lost 35 lb with improvement of dyspnea on exertion. Denies chest pain, palpitations, lower extremity edema, dizziness or syncope. MEDICAL HISTORY Past Medical History: Diagnosis Date Abnormal findings on cardiac catheterization 12/13/2014 Mild CAD, mildly decreased LV systolic function. See report, [facility], Dr. Perry. Acute bacterial sinusitis [...] Left 12/13/2014 Mild CAD, mildly diminished LVEF, [facility] Rec[facility]. CARPAL TUNNEL RELEASE Bilateral 2013 Dr. Fajardo SHOULDER ARTHROSCOPY W/ SUBACROMIAL DECOMPRESSION AND DISTAL CLAVICLE EXCISION 2001 Dr. Henriquez. SPINAL FUSION 2009 L5-S1 Social History Tobacco Use Smoking status: Former Current packs/day: 0.00 Average packs/day: 1 pack/day for 24.0 years (24.0 ttl pk-yrs) Types: Cigarettes Start date: 07/14/1990 Quit date: 06/25/2014 Years since quittin.4 Smokeless tobacco: Never Substance and Sexual Activity Drug use: No Sexual activity: None Alcohol Use: Not on file Family History Problem Relation Age of Onset Other Mother Age 67 alive and well.; Other Father Age 65 with unknow cancer.; Testicular cancer Father In his 40s Stomach cancer Father Kidney cancer Father Other (enlarged heart) Father Diabetes type II Paternal Grandmother Diabetes type II Paternal Grandfather MEDICATIONS Current Outpatient Medications Medication Sig Dispense Refill albuterol HFA (PROVENTIL HFA,VENTOLIN HFA,PROAIR HFA) 90 mcg/actuation inhaler Inhale 2 puffs every6 (six) hours as needed for wheezing 1 Inhaler 5 aspirin 81 mg tablet Take 1 tablet (81 mg total) by mouth daily DULoxetine DR (CYMBALTA) 60 mg capsule TAKE 1 CAPSULE (60 MG TOTAL) BY MOUTH DAILY 90 capsule 1 losartan (COZAAR) 100 mg tablet TAKE 1 TABLET (100 MG TOTAL) BY MOUTH DAILY 90 tablet 3 multivitamin (MULTIPLE VITAMINS) tablet tablet take 1 by Oral route daily 0 0 Ozempic 2 mg/dose (8 mg/3 mL) pen injector injection rosuvastatin (CRESTOR) 5 mg tablet No current facility-administered medications for this visit. ALLERGIES Allergies Allergen Reactions Penicillins Rash Red itchy rash a day or two after starting it. Hydrocodone Stomach upset REVIEW OF SYSTEMS Review of Systems Constitutional: Positive for malaise/fatigue and weight loss. Negative for chills and fever. HENT: Negative for congestion and sore throat. Eyes: Negative for blurred vision and double vision. Cardiovascular: Positive for dyspnea on exertion. Negative for chest pain, claudication, leg swelling, near-syncope, orthopnea, palpitations, paroxysmal nocturnal dyspnea and syncope. Respiratory: Positive for snoring. Negative for cough, hemoptysis, shortness of breath, sputum production and wheezing. Endocrine: Negative for cold intolerance and polyuria. Hematologic/Lymphatic: Negative for bleeding problem. Does not bruise/bleed easily. Skin: Negative for itching and rash. Musculoskeletal: Negative for back pain, joint pain and joint swelling. Gastrointestinal: Negative for abdominal pain, diarrhea, nausea and vomiting. Genitourinary: Negative for dysuria, frequency and hematuria. Neurological: Negative for focal weakness, headaches and light-headedness. Psychiatric/Behavioral: Negative for depression. The patient is not nervous/anxious. Allergic/Immunologic: Negative for environmental allergies and hives. PHYSICAL EXAM Vitals BP 118/68 (BP Location: Right arm, Patient Position: Sitting) Pulse 94 Ht 170.2 cm (5' 7 ) Wt 110.3 kg (243 lb 1.6 oz) SpO2 97% BMI 38.07 kg/m?? Body mass index is 38.07 kg/m??. Physical Exam Constitutional: General: He is not in acute distress. Appearance: He is well-developed. HENT: Head: Normocephalic and atraumatic. Right Ear: External ear normal. Left Ear: External ear normal. Eyes: General: No scleral icterus. Left eye: No discharge. Conjunctiva/sclera: Conjunctivae normal. Neck: Thyroid: No thyromegaly. Cardiovascular: Rate and Rhythm: Normal rate and regular rhythm. Heart sounds: Normal heart sounds. No murmur heard. No friction rub. No gallop. Pulmonary: Effort: Pulmonary effort is normal. No respiratory distress. Breath sounds: Normal breath sounds. No wheezing or rales. Chest: Chest wall: No tenderness. Abdominal: General: There is no distension. Palpations: Abdomen is soft. Tenderness: There is no abdominal tenderness. Musculoskeletal: General: No tenderness or deformity. Cervical back: Normal range of motion and neck supple. Right lower leg: No edema. Left lower leg: No edema. Skin: General: Skin is warm. Findings: No erythema or rash. Neurological: Mental Status: He is alert and oriented to person, place, and time. Motor: No abnormal muscle tone. Psychiatric: Mood and Affect: Mood normal. LABS AND OTHER DIAGNOSTIC TESTS Lab Results Component Value Date WBC 7.3 07/21/2019 HGB 14.7 07/21/2019 HCT 44.8 07/21/2019 MCV 87.2 07/21/2019 Chemistry Component Value Date/Time SODIUM 138 08/15/2020 0740 POTASSIUM 4.7 08/15/2020 0740 CHLORIDE 102 08/15/2020 0740 CO2 28 08/15/2020 0740 BUNSER 18 08/15/2020 0740 CREATININE 1.11 08/15/2020 0740 GLUCOSE 118 (H) 08/15/2020 0740 Component Value Date/Time CALCIUM 9.7 08/15/2020 0740 ALKPHOS 59 08/15/2020 0740 AST 28 08/15/2020 0740 ALT 50 (H) 08/15/2020 0740 BILITOT 0.3 08/15/2020 0740 Lab Results Component Value Date CHOL 176 09/20/2022 CHOL 191 08/15/2020 CHOL 209 (H) 07/21/2019 Lab Results Component Value Date HDL 36 (L) 09/20/2022 HDL 38 (L) 08/15/2020 HDL 43 07/21/2019 Lab Results Component Value Date LDLCALC 81 09/20/2022 LDLCALC 68 12/13/2014 Lab Results Component Value Date TRIG 294 (H) 09/20/2022 TRIG 241 (H) 08/15/2020 TRIG 222 (H) 07/21/2019 Lab Results Component Value Date CHOLHDL 5 09/20/2022 CHOLHDL 5.0 (H) 08/15/2020 CHOLHDL 4.9 07/21/2019 Lexiscan stress test June 2024 small defect distal anteroseptal region, small mildly decreased perfusion basal lateral wall at both rest and stress may be artifact or prior infarction. Ejection fraction 57%. Echo 2020 ejection fraction 65%, ASSESSMENT Diagnoses and all orders for this visit: Primary hypertension (Primary) Abnormal cardiovascular stress test - Ambulatory referral to Cardiology Mixed hyperlipidemia ERICH (obstructive sleep apnea) PLAN/RECOMMENDATIONS In regards to abnormal stress test showing small area of defect distal anteroseptum. Patient used to have dyspnea on exertion but improved after weight loss. Cardiac catheterization 2014 shows 25% inthe RCA, lad and left circumflex artery. Options for further evaluation of the coronary arteries discussed with the patient including CTA coronary angiogram and coronary angiogram and patient agreed to proceed with coronary angiogram. Risks and benefits coronary angiogram discussed with the patientagrees to proceed. Meanwhile continue aspirin. In regards to hypertension, blood pressure controlled 118/68. Continue losartan. In regards to hyperlipidemia, lipid panel done today December 21, 2024 shows total cholesterol less than 100, HDL 35, triglycerides 114 and LDL very low. Continue rosuvastatin 5 mg daily Follow up in the office in after cardiac catheterization . Polly Null MD CIATE DRAFTER documented in this encounter Nursing Notes * Lilian Butcher RN - 12/30/2024 11:49 AM CST Patient discharged via wheelchair. Discharge paperwork given to patient and patient verbalized understanding. IV removed at this time. Skin dry and intact. Vital signs stable. CIATE DRAFTER * Lilian Butcher RN - 12/30/2024 11:48 AM CST Patient tolerated ambulating in hallway. Site intact. Discharge paperwork read to patient and family. CIATE DRAFTER documented in this encounter Miscellaneous Notes * Post-Procedure Note - Polly Null MD - 12/30/2024 9:21 AM ASSOCIATE DRAFTER Post-Procedure Documentation Requirements Patient Name: Javier Sanchez : 1970 Primary Surgeon/Proceduralist and assistants: dr null Procedure(s) performed: Coronary angiogram Details of procedure(s): See cath report Estimated blood loss: 5 cc Specimens removed: None Post-procedure diagnosis: Nonobstructive CAD Time-out performed: Prior to beginning the procedure, universal protocol was performed to confirm the patient's identity and the planned procedure. Immediate re-assessment performed: Patient reassessed immediately prior to procedure before sedation was administered. CIATE DRAFTER * Pre-Sedation Documentation - Polly Null MD - 12/30/2024 8:00 AM CST Pre-Procedure Documentation Requirements Patient Name: Javier Sanchez : 1970 Planned Procedure: Coronary angiogram Informed Consent Obtained: Yes - the risks, benefits, and alternatives of procedure and planned sedation have been discussed with the patient and/or their installation service representative. All questions answered and they agree to proceed. Informed consent was obtained. NPO Time: After midnight. ASA Score: ASA 2- A patient with mild systemic disease Sedation Plan: Moderate sedation Airway Assessment (Mallampati Classification): Class II- soft palate and the uvula are visible Pertinent H&P: CIATE DRAFTER * Perioperative Nursing Note - Rubi Mclean RN - 12/25/2024 1:11 PM ASSOCIATE DRAFTER Images from the original note were not included. Pre Anesthesia Testing Perioperative Nursing Note Telephone Preoperative Evaluation - TELEPHONE ONLY, NO PHYSICAL EXAM - [facility] Date: 12/25/24 [facility] RN completed assessment with the patient. Javier Sanchez is a 54 y.o. male LEFT HEART CATHETERIZATION WITH CORONARY ANGIOGRAPHY AND WITH OR WITHOUT LEFT VENTRICULOGRAM [id number] Pre-Op Diagnosis Codes: * Abnormal cardiovascular stress test [R94.39] There were no vitals filed for this visit. Social History Tobacco Use Smoking Status Former Current packs/day: 0.00 Average packs/day: 1 pack/day for 24.0 years (24.0 ttl pk-yrs) Types: Cigarettes Start date: 07/14/1990 Quit date: 06/25/2014 Years since quittin.5 Smokeless Tobacco Never Substance and Sexual Activity Drug Use Never Past Medical History: Diagnosis Date Abnormal findings on cardiac catheterization 12/13/2014 Mild CAD, mildly decreased LV systolic function. See report, [facility], Dr. Perry. Acute bacterial sinusitis 10/13/2019 See office note. Chronic obstructive pulmonary disease (HCC) 02/23/2010 COPD Chronic pain disorder COVID-19 08/15/2020 Diarrhea 11/13/2019 See office note, Stephie. Dysfunction of both eustachian tubes 09/29/2020 Resolved. Went to ER for OM, got Duricef. Hyperglycemia 08/25/2014 Elevated blood sugar Hypertension Mild persistent asthma without complication 08/25/2012 Asthma/COPD, former smoker. Morbid obesity (HCC) 08/25/2013 Obesity Non morbid obesity 10/24/2018 Obesity Non-recurrent acute suppurative otitis media of right ear without spontaneous rupture of tympanic membrane 01/31/2020 See office note. PONV (postoperative nausea and vomiting) Sleep apnea Steatosis of liver 10/05/2014 Hepatic steatosis Tendonitis of elbow, right 12/05/2020 See office note, [facility]. Subsequent additional evaluations suggested mild right carpal tunnel syndrome, improved with conservative management. Type 2 diabetes mellitus (HCC) Past Surgical History: Procedure Laterality Date CARDIAC CATHETERIZATION Left 12/13/2014 Mild CAD, mildly diminished LVEF, Dr. Perry, [facility]. CARPAL TUNNEL RELEASE Bilateral 2013 Dr. Fajardo CERVICAL FUSION 2021 x4 SHOULDER ARTHROSCOPY W/ SUBACROMIAL DECOMPRESSION AND DISTAL CLAVICLE EXCISION 2001 Dr. Henriquez. SPINAL CORD STIMULATOR IMPLANT 2022 SPINAL FUSION 2009 L5-S1 Allergies Allergen Reactions Penicillins Rash Red itchy rash a day or two after starting it. Hydrocodone Stomach upset and Sweating CURRENT MEDICATIONS Med List Status: Nurse Complete Set By: Rubi Mclean RN at 12/25/2024 1:04 PM Taking? Last Dose Start Date End Date Provider albuterol HFA (PROVENTIL HFA,VENTOLIN HFA,PROAIR HFA) 90 mcg/actuation inhaler -- 07/22/20 -- Az Allison MD Inhale 2 puffs every 6 (six) hours as needed for wheezing aspirin 81 mg tablet -- -- -- ProviderZi MD Colace 100 mg capsule -- 08/18/22 -- ProviderZi MD cyclobenzaprine (FLEXERIL) 10 mg tablet -- -- -- Provider, Zi, MD DULoxetine DR (CYMBALTA) 60 mg capsule -- 10/02/21 -- Az Allison MD TAKE 1 CAPSULE (60 MG TOTAL) BY MOUTH DAILY Patient taking differently: Take 1 capsule (60 mg total) by mouth every morning losartan (COZAAR) 100 mg tablet -- 10/23/21 12/25/24 Az Allison MD TAKE 1 TABLET (100 MG TOTAL) BY MOUTH DAILY Patient taking differently: Take 1 tablet (100 mg total) by mouth every morning meloxicam (MOBIC) 15 mg tablet -- 11/26/24 -- Zi Olvera MD multivitamin (MULTIPLE VITAMINS) tablet tablet -- 09/06/16 -- Az Allison MD take 1 by Oral route daily Ozempic 2 mg/dose (8 mg/3 mL) pen injector injection -- 12/01/24 -- Zi Olvera MD rosuvastatin (CRESTOR) 5 mg tablet -- 12/08/24 -- Zi Olvera MD Implants Neurostimulator Neurostimulator - Implanted Back As of 01/17/2024 Status: Implanted TRAVEL/EXPOSURE Travel Screening Have you traveled outside the [place] in the last 6 months?: No SCREENINGS Manuel Fall Risk Score: 25 Functional screening questions Demonstrates difficulty with ADL?: Yes (difficulty with putting shoes on,standing long periods) Demonstrates difficulty communicating needs?: No Demonstrates difficulty with mobility?: No Self care- no restrictions: Yes Needs Total care: No NUTRITION DUENAS Nutrition and Function History Questionnaire Is BMI < 20?: Yes Have you lost any weight in the past 6 months without trying? : No Have you eaten < 50% of normal in the past 2 weeks without trying?: Yes Have you experienced any of the following in the past month?: No Symptom Score: 0 Has your activity level decreased over the past 6 months or do you use an assistive device such as a walker, cane, or wheelchair?: No Total Score: 2 Nutrition Screen Have you had a recent weight gain/loss of 10lbs ?: No Do you have adequate intake?: Yes Do you have nutritional issues ?: None Do you take herbal supplements?: No Do you take diet pills?: No Are you on a special diet ?: No PATIENT CARE PLANNING Discharge Planning Type of Residence: Private residence Living Arrangements: Spouse/significant other Support Systems: Spouse/significant other Patient expects to be discharged to: Private residence ADDITIONAL COMMENTS/ FOLLOW UP Surgery scheduled for 12/30/24 at 0830, arrival at 0630, NPO JENNIFER. Pt states that he was given instructions per Dr Null's office. CIATE DRAFTER * Pre-Procedure Instructions - Rubi Mclean RN - 12/25/2024 1:04 PM ASSOCIATE DRAFTER We are pleased that you and your doctor have chosen [facility] for your surgery. We hope that the following information will help make your visit a pleasant one. Procedure Date: 12/30/2024 Arrive at 6:30 AM [facility] (look for sign reading ???[facility]?? ) [address] [place] [address] Before your Procedure: Notify your doctor of ANY change in your health such as a cold, sore throat, fever, infection, skinrashes or breakdown, or a change in the problem for which you are having your surgery. Follow any instructions given to you by Dr. Null's in regards to medications, when to stop eating/drinking prior to surgery, smoking/alcohol/marijuana use prior to procedure, and showering prior to procedure. 24 hours before your procedure: Hydrate yourself (water) - if no restrictions. Day of procedure: You may brush your teeth and rinse your mouth out. Repeat shower. Do not use lotions, powders, creams, Vaseline, makeup, or hair products ONLY take these pills with a sip of water: ONLY take the medications your physician/commercial real estate lender instructed you to take. Any questions please call your physician. You Should bring a complete, up-to-date, list of all medications on the day of your surgery/procedure. Including any over the counter medications or supplements. Please note on your medication list the last time you took each medication. The healthcare team will ask for this information. Wear comfortable clothes that will not be tight over the area of your surgery. Do Not Glue Dentures or Partials In If you have an implantable device with a remote, bring the remote with you on the day of surgery. Leave all valuables and jewelry, (including all body piercing jewelry and permeant jewelry), hairpins, false eyelashes, contact lenses at home. If you use a CPAP machine, please bring it with you to wear after your surgery. Please bring your photo ID, insurance cards, and medication list (including all [id number] medications) with you. Prescriptions can be filled onsite prior to discharge. Please have your co-pay available. Check in at the Registration Desk. You may have 2 visitors (visitor must be over the age of 18). When you are discharged: You must have a responsible adult to drive you home, you will not be allowed to drive or take a cabhome. We recommend you have someone stay with you for 24 hours after your surgery. What to bring if you are spending the night with us: Bring toiletry items such as: robe, slippers, toothbrush, toothpaste, brush or comb. Bring contact lens, hearing aids, glass cases and denture container if you use any of these items. The hospital will provide you with a gown. Questions or concerns: If you have any questions or concerns regarding your procedure, or to cancel your surgery/procedure- contact your commercial real estate lender/physician as soon as possible. If you have questions regarding your Pre-Admission Screen/Testing, please call at [facility] documented in this encounter Plan of Treatment Not on file documented as of this encounter Procedures Procedure Name Priority Date/Time Associated Diagnosis Comments POCT GLUCOSE DEVICE Routine 12/30/2024 9 :36 AM ASSOCIATE DRAFTER LEFT HEART CATHETERIZATION WITH CORONARY ANGIOGRAPHY AND WITH AND WITHOUT LEFT VENTRICULOGRAM Routine 12/30/2024 9:14 AM ASSOCIATE DRAFTER Abnormal cardiovascular stress test POCT GLUCOSE DEVICE Routine 12/30/2024 7 :07 AM ASSOCIATE DRAFTER EGFR STAT 12/30/2024 7:02 AM ASSOCIATE DRAFTER DIFFERENTIAL AUTO STAT 12/30/2024 7:0 2 AM ASSOCIATE DRAFTER CBC WITH AUTO DIFFERENTIAL STAT 12/30/2024 7:02 AM ASSOCIATE DRAFTER BASIC METABOLIC PANEL STAT 12/30/2024 7:02 AM ASSOCIATE DRAFTER documented in this encounter Results * POCT glucose (12/30/2024 9:36 AM ASSOCIATE DRAFTER) Glucose, POC 113 70 - 199 mg/dL Blood 12/30/2024 9:36 AM ASSOCIATE DRAFTER 12/30/2024 9:36 AM ASSOCIATE DRAFTER us Polly Null MD LAB POCT ORDERABLES - DEVICE Final Result NAYANA MASTERSON [id number] [place] [address] * LEFT HEART CATHETERIZATION WITH CORONARY ANGIOGRAPHY AND WITH AND WITHOUT LEFT VENTRICULOGRAM (12/30/2024 9:14 AM ASSOCIATE DRAFTER) Anatomical Region Laterality Modality X-Ray Angiograph y Narrative 12/30/2024 9:33 AM ASSOCIATE DRAFTER CARDIAC CATHETERIZATION REPORT Javier Sanchez ? IP ENCOUNTER: @CSN@ Date of Procedure: 12/30/2024 ?? BIRTHDATE: 1970 PHOTOVOLTAIC POWER SYSTEMS ENGINEER: Polly Null MD PREPROCEDURE DIAGNOSES: This is 54-year-old patient with history of diabetes, morbid obesity, sleep apnea evaluate for dyspnea on exertion. ??Reported cardiac catheterization 2014 that showed nonobstructive CAD. ??Increasing dyspnea on exertion lately. ??We brought him in to define coronary anatomy. ??He did undergo stress testing that shows small area ischemia anteroseptum distally and fixed defect lateral wall. PROCEDURES PERFORMED: Moderate sedation that started at 8:37 a.m. and ended at 9:14 a.m. with total duration using 5mg of Versed and 125mcg of fentanyl. ??The registered nurse was rashawn urias Selective left and right coronary angiogram. Left heart catheterization with measurement of LVEDP and measure gradient across aortic valve. LV angiogram. Right common femoral arterial angiogram. Deployment 5 [place]ib[place]ian Vascade closure device. FINDINGS: Left main without significant disease. Left anterior descending artery has a lesion in the mid segment about 40% and distally 40%. ??Gives rise to medium diagonal branch with minimal irregularities. Left circumflex artery is large and codominant. ??Minimal irregularities. ?? Distally gives rise to large OM1 with minimal irregularities. Right coronary artery is medium to large with minimal irregularities. LVEDP was 5 mm Hg and no gradient across aortic valve. Opening arterial pressure 120/102 on closing pressure 82/64. LV angiogram shows normal ejection fraction and no wall motion abnormalities. ??Ascending aorta seems to be normal in caliber.. Right common femoral arterial angiogram shows no significant disease in the right common femoral artery. COMPLICATIONS: None ESTIMATED BLOOD LOSS: 5 mL PROCEDURAL DESCRIPTION: After informed consent patient was brought into the pharmaceutical laboratory technician where she was draped and prepped in the usual manner. ??Moderate sedation was given and the right groin infiltrated using 1% lidocaine. ??Five Djiboutian sheath was obtained using micropuncture needle and modified Seldinger technique. ?? Selective left coronary angiogram was done using JL4 catheter with the tip of the catheter placed in the left main coronary artery. ??Selective right coronary angiogram was done using JR4 catheter with the tip of the catheter placed in the right coronary artery. ??After that 5 Djiboutian pigtail catheter was advanced across aortic valve into the left ventricular with measurement of LVEDP and measure gradient across aortic valve. ??Right common femoral arterial angiogram was done and deployed 5 [place]ian Vascade closure device. Access site: ??Right common femoral artery. Hemostasis: ??5 [place]ian Vascade closure device. CONCLUSIONS Nonobstructive CAD. PLAN Risk factor modification for CAD. Polly Null MD CV CARDIAC CATH PROC EDURES Final Result * POCT glucose (12/30/2024 7:07 AM ASSOCIATE DRAFTER) Glucose, POC 107 70 - 199 mg/dL Blood 12/30/2024 7:07 AM ASSOCIATE DRAFTER 12/30/2024 7:07 AM ASSOCIATE DRAFTER Polly Null MD LAB POCT ORDERABLES - DEVICE Final Result NAYANA MASTERSON [id number] Department [facility] [place] [address] * eGFR (12/30/2024 7:02 AM ASSOCIATE DRAFTER) [facility] eGFR 77 >=60 mL/min/1. 73 m2 Comment: Interpretive Data Reference Interval Normal ?>/= 90 mL/min/1.73m2 Mildly decreased* ? 60 - 89 mL/min/1.73m2 Mildly to moderately decreased ?45 - 59 mL/min/1.73m2 Moderately to severely decreased ??30 - 44 mL/min/1.73m2 Severely decreased ?15 - 29 mL/min/1.73m2 Kidney Failure ?< 15 ??mL/min/1.73m2 *Relative to young adult level Estimated glomerular filtration rate is determined by the 2020 CKD-EPI equation recommended by the National Kidney Foundation (A Unifying Approach to GFR Estimation: Recommendations of the NKF-ASK Task Force on Reassessing the Inclusion of Race in Diagnosing Kidney Disease, JASN 2020). The CKD-EPI equation should not be used for patients with unstable renal function and has not been validated in children and those over 70. Current interpretive data was last reviewed 2021. Blood 12/30/2024 7:02 AM ASSOCIATE DRAFTER 12/30/2024 7:30 AM ASSOCIATE DRAFTER Polly Null MD LAB BLOOD ORDERABLES Final Result NAYANA MASTERSON [id number] Department [place] [employer] [address] * Differential, auto (12/30/2024 7:02 AM ASSOCIATE DRAFTER) Neutrophil abs 5.9 1.5 - 6.5 K/cumm Imm gran abs 0.0 0.0 - 0.1 K/cumm [facility] Lymphocyte abs 2.4 0.8 - 3.3 K/cumm [facility] Monocyte abs 0.8 0.2 - 0.8 K/cumm [facility] Eosinophil abs 0.4 0.0 - 0.5 K/cumm [facility] Basophil abs 0.1 0.0 - 0.1 K/cumm [facility] Neutrophil pct 61.5 % [facility] Comment: Interpretive Data Percent cell count reference ranges are not reported, since discordance with absolute values may lead to misinterpretation of CBC data. Current Interpretive Data was last revised on 2018. Imm gran pct 0.3 % [facility] Comment: Interpretive Data Percent cell count reference ranges are not reported, since discordance with absolute values may lead to misinterpretation of CBC data. Current Interpretive Data was last revised on 2018. Lymphocyte pct 25.1 % [facility] Comment: Interpretive Data Percent cell count reference ranges are not reported, since discordance with absolute values may lead to misinterpretation of CBC data. Current Interpretive Data was last revised on 2018. Monocyte pct 8.4 % [facility] Comment: Interpretive Data Percent cell count reference ranges are not reported, since discordance with absolute values may lead to misinterpretation of CBC data. Current Interpretive Data was last revised on 2018. Eosinophil pct 4.2 % [facility] Comment: Interpretive Data Percent cell count reference ranges are not reported, since discordance with absolute values may lead to misinterpretation of CBC data. Current Interpretive Data was last revised on 2018. Basophil pct 0.5 % [facility] Comment: Interpretive Data Percent cell count reference ranges are not reported, since discordance with absolute values may lead to misinterpretation of CBC data. Current Interpretive Data was last revised on 2018. Blood 12/30/2024 7:02 AM ASSOCIATE DRAFTER 12/30/2024 7:30 AM ASSOCIATE DRAFTER us Polly Null MD LAB BLOOD ORDERABLES Final Result NAYANA MASTERSON [id number] [place] [address] * CBC with auto differential (12/30/2024 7:02 AM ASSOCIATE DRAFTER) WBC 9.5 3.8 - 9.9 K/cumm Hgb 16.2 13.0 - 17.5 g/dL [facility] Hct 48.5 38.9 - 50.3 % [facility] Plt 296 150 - 400 K/cumm [facility] MPV 11.3 9.1 - 12.3 fL [facility] RBC 5.60 4.30 - 5.80 M/cumm [facility] MCV 86.6 81.3 - 96.4 fL [facility] MCH 28.9 27.1 - 33.3 pg [facility] MCHC 33.4 32.3 - 35.7 g/dL [facility] RDW CV 13.2 11.1 - 14.9 % [facility] RDW SD 41.4 35.7 - 48.1 fL [facility] NRBC abs 0.00 0.00 - 0.01 K/cumm [facility] Blood 12/30/2024 7:02 AM ASSOCIATE DRAFTER 12/30/2024 7:30 AM ASSOCIATE DRAFTER Narrative [facility] - 12/30/2024 7:52 AM ASSOCIATE DRAFTER If most recent labs were drawn prior to 4 AM, draw only prior to initiating procedure. Polly Null MD LAB BLOOD ORDERABLES Final Result NAYANA MASTERSON [id number] [place] [address] * (ABNORMAL) Basic metabolic panel (12/30/2024 7:02 AM ASSOCIATE DRAFTER) Pathologist [facility] Sodium 137 135 - 145 mmol/L Potassium, pl 4.6 3.3 - 4.9 mmol/L [facility] Comment:Hemolysis present. R esults may be affected. Chloride 101 97 - 110 mmol/L [facility] CO2 21(L) 22 - 32 mmol/L [facility] Anion gap 15 2 - 15 mmol/L [facility] BUN 13 6 - 25 mg/dL [facility] Creatinine 1.14 0.80 - 1.30 mg/dL [facility] Glucose 124 70 - 199 mg/dL [facility] Comment: Interpretive Data Fasting glucose >/= [...] classification and Diagnosis of Diabetes Diabetes Care 2021; 46: S19-S40. Current interpretive data was last revised 2022. Calcium 9.2 8.5 - 10.3 mg/dL [facility] Blood 12/30/2024 7:02 AM ASSOCIATE DRAFTER 12/30/2024 7:30 AM ASSOCIATE DRAFTER us Polly Null MD LAB BLOOD ORDERABLES Final Result [facility] [id number] Department of Laboratories [place] [id number] documented in this encounter Visit Diagnoses Diagnosis Abnormal cardiovascular stress test- Primary Other nonspecific abnormal cardiovascular system function study Abnormal cardiovascular stress test Other nonspecific abnormal cardiovascular system function study documented in this encounter Admitting Diagnoses Diagnosis Abnormal cardiovascular stress test Other nonspecific abnormal cardiovascular system function study documented in this encounter Administered Medications Active Administered Medications - up to 3 most recent administrations Medication Order MAR Action Action Date Dose Rate Site Carrier Fluids for Secondary Infusion - 0.9% Sodium Chloride 30 mL, intravenous, As needed, For priming tubing and/or flushing, Starting on Sat12/30/24 at 0753, Pre-Procedure (CV), 0-250 ml/hr to flush line after IV infusions when no maintenance IV ordered. Infuse 30mL at the same rate as the secondary infusion. Run as primary IV, not intended for KVO. sodium chloride 0.9% flush 0.5-20 mL 0.5-20 mL, intra-catheter, Every 8 hours scheduled, First dose on Sat12/30/24 at 0830, Pre-Procedure (CV), Flush volume based on line type and size. sodium chloride 0.9% flush 0.5-20 mL 0.5-20 mL, intra-catheter, As needed, line care, Starting on Sat12/30/24 at 0753, Pre-Procedure (CV), Flush volume based on line type and size. Flush before and after each use. documented in this encounter Historical Medications * This list may reflect changes made after this encounter. meloxicam (MOBIC) 15 mg tablet Take 1 tablet (15 mg total) by mouth nightly 11/26/2024 Colace 100 mg capsule Take 1 capsule (100 mg total) by mouth 2 (two) times a day as needed for constipation 08/18/2022 cyclobenzaprine (FLEXERIL) 10 mg tablet Take 1 tablet (10 mg total) by mouth 3 (three) times a day as needed for muscle spasms added in this encounter Active and Recently Administered Medications Times are shown in [facility]OC[facility]TER. Scheduled Medication Order 12/28/2024 12/29/2024 12/30/2024 sodium chloride 0.9% flush 0.5-20 mL 0.5-20 mL, intra-catheter, Every 8 hours scheduled, First dose on Sat12/30/24 at 0830, Pre-Procedure (CV), Flush volume based on line type and size. 1020 (Not Given - Pr ovider: Lilian Butcher RN - Reason: Other)1400 (Due)2200 (Due) PRN Medication Order 12/28/2024 12/29/2024 12/30/2024 Carrier Fluids for Secondary Infusion - 0.9% Sodium Chloride 30 mL, intravenous, As needed, For priming tubing and/or flushing, Starting on Sat12/30/24 at 0753, Pre-Procedure (CV), 0-250 ml/hr to flush line after IV infusions when no maintenance IV ordered. Infuse 30mL at the same rate as the secondary infusion. Run as primary IV, not intended for KVO. fentaNYL (SUBLIMAZE) preservative free injection (CANCELED) Code/trauma/sedation medication, Starting on Sat12/30/24 at 0837, Intra-Procedure (CV) 0837 (Given - Provid er: Virgen Chen RN)0846 (Given - Provider: Virgen Chen RN)0851 (Given - Provider: Virgen Chen RN)0907 (Given - Provider: Virgen Chen RN) heparin in 0.9% sodium chloride 1,000 units/500 mL (2 unit/mL) infusion (premix) (CANCELED) Code/trauma/sedation medication, Starting on Sat12/30/24 at 0827, Intra-Procedure (CV) 0827 (Given - Provid er: Polly Null MD) iodixanoL (VISIPAQUE) 320 mg iodine/mL injection (CANCELED) Code/trauma/sedation medication, Starting on Sat12/30/24 at 0919, Intra-Procedure (CV) 0919 (Given - Provid er: Polly Null MD) lidocaine (XYLOCAINE) 10 mg/mL (1 %) injection (CANCELED) Code/trauma/sedation medication, Starting on Sat12/30/24 at 0848, Intra-Procedure (CV), Indications: Administration of Local Anesthesia 0848 (Given - Provid er: Polly Null MD) midazolam (VERSED) 1 mg/mL preservative free injection (CANCELED) Administer over 2 Minutes, Code/trauma/sedation medication, Starting on Sat12/30/24 at 0837, Intra-Procedure (CV) 0837 (Given - Provid er: Virgen Chen RN)0847 (Given - Provider: Virgen Chen RN)0851 (Given - Provider: Virgen Chen RN)0907 (Given - Provider: Virgen Chen RN) sodium chloride 0.9% bolus (COMPLETED) Code/trauma/sedation continuous med, Starting on Sat12/30/24 at 0913, Intra-Procedure (CV) 0913 (New Bag - Prov ider: Virgen Chen RN)1000 (Stopped - Provider: Lilian Butcher RN) sodium chloride 0.9% flush 0.5-20 mL 0.5-20 mL, intra-catheter, As needed, line care, Starting on Sat12/30/24 at 0753, Pre-Procedure (CV), Flush volume based on line type and size. Flush before and after each use. documented in this encounter Orders Medications Ordered That Rolo ht Not Have Been Administered Count Last Ordered Date First Ordered Date Carrier Fluids for Secondary Infusion - 0.9% Sodium Chloride 1 12/30/2024 fentaNYL (SUBLIMAZE) preserv ative free injection 1 12/30/2024 heparin in 0.9% sodium chlor svetlana 1,000 units/500 mL (2 unit/mL) infusion (premix) 1 12/30/2024 iodixanoL (VISIPAQUE) 320 mg iodine/mL injection 1 12/30/2024 lidocaine (XYLOCAINE) 10 mg/ mL (1 %) injection 1 12/30/2024 midazolam (VERSED) 1 mg/mL p reservative free injection 1 12/30/2024 sodium chloride 0.9% bolus 1 12/30/2024 sodium chloride 0.9% flush 0.5-20 mL 2 03/2025 Nursing Count Last Ordered Date First Orde red Date MAINTAIN IV ACCESS 1 12/30/2024 NURSING COMMUNICATION 1 12/30/2024 VERIFY INFORMED CONSENT 1 12/30/2024 IV Count Last Ordered Date First Orde red Date INSERT PERIPHERAL IV 1 12/30/2024 Discharge Count Last Ordered Date First Orde red Date DISCHARGE PATIENT 1 12/30/2024 documented in this encounter Care Teams Journeyman 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
--- OUTSIDE RECORDS SUMMARY | 2024-12-30 13:31 | XMS_ITS | Encounter Summary ---
Author Organization [facility] Healthcare Address [address] [place] [address] Care Team Providers Care Stem Dryer Maintainer Name Role Phone Pascale Wolff MD Unavailable Rudi Patel MD Unavailable [phone] Hai Pradhan MD Primary Care Provider [phone] Reason for Visit * Auth/Cert (Routine) Specialty Diagnoses / Procedures Referred By Monster blackwell Referred To Contact Diagnoses Abnormal cardiovascular stress test Abnormal cardiovascular stress test [R94.39] Procedures LEFT HEART CATHETERIZATION WITH CORONARY ANGIOGRAPHY AND WITH OR WITHOUT LEFT VENTRICULOGRAM [id number] Referral ID Status Reason Start Date Expiration Date Visits Re quested Visits Authorized [id number] 1 1 Encounter Details Date Type Department Care Team (Latest Contact Info) Description 12/30/2024 8:30 AM CELL STRIPPER FINAL - 12/30/2024 10:00 AM [facility] Surgery [facility] Cardiac Catheterization Lab [address] [place] [address] Polly Null MD [address] [place] [id number] LEFT HEART CATHETERIZATION WITH CORONARY ANGIOGRAPHY AND WITH OR WITHOUT LEFT VENTRICULOGRAM 38936 Social History Tobacco Use Types Packs/Day Years [...] on file Legal Sex Male 9:12 AM CELL STRIPPER FINAL Gender Identity Not on file Sexual Orientation Not on file documented as of this encounter Last Filed Vital Signs Vital Sign Reading Time Taken Comments Blood Pressure 157/93 12/30/2024 9:50 AM CELL STRIPPER FINAL Pulse 65 12/30/2024 10:00 AM CELL STRIPPER FINAL Temperature 37 ??C (98.6 ??F) 12/30/2024 7:50 AM CELL STRIPPER FINAL Respiratory Rate - - Oxygen Saturation 97% 12/30/2024 10:00 AM CELL STRIPPER FINAL Inhaled Oxygen Concentration - - Weight 106.1 kg (234 lb) 12/30/2024 7:50 AM CELL STRIPPER FINAL Height 170.2 cm (5' 7 ) 12/30/2024 7:50 AM CELL STRIPPER FINAL Body Mass Index 36.65 12/30/2024 7:50 AM CELL STRIPPER FINAL documented in this encounter Discharge Instructions * Discharge Instructions* Lilian Butcher RN - 12/30/2024 10:01 AM CELL STRIPPER FINAL Moderate Sedation WHAT YOU NEED TO KNOW: [...] or you have any questions contact your Proposal Specialist and follow up with your Primary Care Physician as instructed. Doctor office phone number: [phone] STRIPPER FINAL documented in this encounter Medications at Time [...] discussed with the patient agrees to proceed STRIPPER FINAL Source Note - Polly Null MD - 12/21/2024 8:15 AM CELL STRIPPER FINAL [facility]ARD[facility] DATE OF VISIT: 12/21/2024 CHIEF COMPLAINT Chief Complaint Patient presents with New Patient Transferring from [facility]. Abn stress test HPI Javier Sanchez is [...] mildly decreased LV systolic function. See report, [facility], Dr. Perry. Acute bacterial sinusitis [...] after cardiac catheterization . Polly Null MD STRIPPER FINAL documented in this encounter Nursing Notes * Lilian Butcher RN - 12/30/2024 11:49 AM CST Patient discharged via wheelchair. Discharge paperwork given to patient and patient verbalized understanding. IV removed at this time. Skin dry and intact. Vital signs stable. STRIPPER FINAL * Lilian Butcher RN - 12/30/2024 11:48 AM CST Patient tolerated ambulating in hallway. Site intact. Discharge paperwork read to patient and family. STRIPPER FINAL documented in this encounter Miscellaneous Notes * Post-Procedure Note - Polly Null MD - 12/30/2024 9:21 AM CELL STRIPPER FINAL Post-Procedure Documentation Requirements Patient Name: Javier Sanchez [...] prior to procedure before sedation was administered. STRIPPER FINAL * Pre-Sedation Documentation - Polly Null MD - 12/30/2024 8:00 AM CST Pre-Procedure Documentation Requirements Patient Name: Javier Sanchez : 1970 Planned Procedure: Coronary angiogram Informed Consent Obtained: Yes - the risks, benefits, and alternatives of procedure and planned sedation have been discussed with the patient and/or their containers sales representative. All questions answered and they agree to proceed. Informed consent was obtained. NPO Time: After midnight. ASA Score: ASA 2- A patient with mild systemic disease Sedation Plan: Moderate sedation Airway Assessment (Mallampati Classification): Class II- soft palate and the uvula are visible Pertinent H&P: STRIPPER FINAL * Perioperative Nursing Note - Rubi Mclean RN - 12/25/2024 1:11 PM CELL STRIPPER FINAL Images from the original note were not included. Pre Anesthesia Testing Perioperative Nursing Note Telephone Preoperative Evaluation - TELEPHONE ONLY, NO PHYSICAL EXAM - [facility] Date: 12/25/24 [facility] RN completed assessment with the patient. Javier Sanchez is a 54 y.o. male LEFT HEART CATHETERIZATION WITH CORONARY ANGIOGRAPHY AND WITH OR WITHOUT LEFT VENTRICULOGRAM [id number] Pre-Op Diagnosis Codes: * Abnormal cardiovascular stress [...] Mild CAD, mildly diminished LVEF, Dr. Perry, [facility]. CARPAL TUNNEL RELEASE Bilateral 2013 Dr. Fajardo CERVICAL FUSION 2021 x4 SHOULDER ARTHROSCOPY W/ SUBACROMIAL DECOMPRESSION AND DISTAL CLAVICLE EXCISION 2001 Dr. Henriquez. SPINAL CORD STIMULATOR IMPLANT 2022 SPINAL FUSION 2008 L5-S1 Allergies Allergen Reactions Penicillins Rash Red [...] Colace 100 mg capsule -- 08/18/22 -- Zi Olvera MD cyclobenzaprine (FLEXERIL) 10 mg tablet -- -- -- Zi Olvera MD DULoxetine DR (CYMBALTA) 60 mg capsule [...] was given instructions per Dr Null's office. STRIPPER FINAL * Pre-Procedure Instructions - Rubi Mclean RN - 12/25/2024 1:04 PM CELL STRIPPER FINAL We are pleased that you and your doctor have chosen [facility] for your surgery. We hope that the following information will help make your visit a pleasant one. Procedure Date: 12/30/2024 Arrive at 6:30 AM [facility] (look for sign reading ???EMERGENCY - SURGERY CENTER?? ) [address] [place] [address] Before your Procedure: Notify your doctor of [...] of water: ONLY take the medications your physician/tankage supervisor instructed you to take. Any questions please [...] insurance cards, and medication list (including all [id number] medications) with you. Prescriptions can be filled [...] or to cancel your surgery/procedure- contact your tankage supervisor/physician as soon as possible. If you have questions regarding your Pre-Admission Screen/Testing, please call at STRIPPER FINAL documented in this encounter Plan of Treatment Not on file documented as of this encounter Procedures Procedure Name Priority Date/Time Associated Diagnosis Comments POCT GLUCOSE DEVICE Routine 12/30/2024 9 :36 AM CELL STRIPPER FINAL LEFT HEART CATHETERIZATION WITH CORONARY ANGIOGRAPHY AND WITH AND WITHOUT LEFT VENTRICULOGRAM Routine 12/30/2024 9:14 AM CELL STRIPPER FINAL Abnormal cardiovascular stress test POCT GLUCOSE DEVICE Routine 12/30/2024 7 :07 AM CELL STRIPPER FINAL EGFR STAT 12/30/2024 7:02 AM CELL STRIPPER FINAL DIFFERENTIAL AUTO STAT 12/30/2024 7:0 2 AM CELL STRIPPER FINAL CBC WITH AUTO DIFFERENTIAL STAT 12/30/2024 7:02 AM CELL STRIPPER FINAL BASIC METABOLIC PANEL STAT 12/30/2024 7:02 AM CELL STRIPPER FINAL documented in this encounter Results * POCT glucose (12/30/2024 9:36 AM CELL STRIPPER FINAL) Glucose, POC 113 70 - 199 mg/dL Blood 12/30/2024 9:36 AM CELL STRIPPER FINAL 12/30/2024 9:36 AM CELL STRIPPER FINAL us Polly Null MD LAB POCT ORDERABLES - DEVICE Final Result [facility] MAST[address] Department [place] [address] * LEFT HEART CATHETERIZATION WITH CORONARY ANGIOGRAPHY AND WITH AND WITHOUT LEFT VENTRICULOGRAM (12/30/2024 9:14 AM CELL STRIPPER FINAL) Anatomical Region Laterality Modality X-Ray Angiograph y Narrative 12/30/2024 9:33 AM CELL STRIPPER FINAL CARDIAC CATHETERIZATION REPORT Javier Sanchez ? IP ENCOUNTER: @CSN@ Date of Procedure: 12/30/2024 ?? BIRTHDATE: 1970 LOG PEELER: Polly Null MD PREPROCEDURE DIAGNOSES: This is [...] Right common femoral arterial angiogram. Deployment 5 Turkmen Vascade closure device. FINDINGS: Left main without [...] informed consent patient was brought into the bundle tier and labeler where she was draped and prepped in the usual manner. ??Moderate sedation was given and the right groin infiltrated using 1% lidocaine. ??Five Turkmen sheath was obtained using micropuncture needle and modified Seldinger technique. ?? Selective left coronary angiogram was done using JL4 catheter with the tip of the catheter placed in the left main coronary artery. ??Selective right coronary angiogram was done using JR4 catheter with the tip of the catheter placed in the right coronary artery. ??After that 5 Turkmen pigtail catheter was advanced across aortic valve into the left ventricular with measurement of LVEDP and measure gradient across aortic valve. ??Right common femoral arterial angiogram was done and deployed 5 Turkmen Vascade closure device. Access site: ??Right common femoral artery. Hemostasis: ??5 Turkmen Vascade closure device. CONCLUSIONS Nonobstructive CAD. PLAN Risk factor modification for CAD. Polly Null MD CV CARDIAC CATH PROC EDURES Final Result * POCT glucose (12/30/2024 7:07 AM CELL STRIPPER FINAL) Glucose, POC 107 70 - 199 mg/dL Blood 12/30/2024 7:07 AM CELL STRIPPER FINAL 12/30/2024 7:07 AM CELL STRIPPER FINAL us Polly Null MD LAB POCT ORDERABLES - DEVICE Final Result NAYANA MASTERSON [address] [place] [address] * eGFR (12/30/2024 7:02 AM CELL STRIPPER FINAL) eGFR 77 >=60 mL/min/1. 73 m2 Comment: [...] of Race in Diagnosing Kidney Disease, JASN 202). The CKD-EPI equation should not be used for patients with unstable renal function and has not been validated in children and those over 70. Current interpretive data was last reviewed 2021. Blood 12/30/2024 7:02 AM CELL STRIPPER FINAL 12/30/2024 7:30 AM CELL STRIPPER FINAL Polly Null MD LAB BLOOD ORDERABLES Final Result [facility] MAST[address] [place] [address] * Differential, auto (12/30/2024 7:02 AM CELL STRIPPER FINAL) Neutrophil abs 5.9 1.5 - 6.5 K/cumm Imm gran abs 0.0 0.0 - 0.1 K/cumm [facility] Lymphocyte abs 2.4 0.8 - 3.3 K/cumm [facility] Monocyte abs 0.8 0.2 - 0.8 K/cumm [facility] Eosinophil abs 0.4 0.0 - 0.5 K/cumm [facility] Basophil abs 0.1 0.0 - 0.1 K/cumm [facility] Neutrophil pct 61.5 % [facility] Comment: Interpretive Data Percent cell count reference ranges are not reported, since discordance with absolute values may lead to misinterpretation of CBC data. Current Interpretive Data was last revised on 2018. Imm gran pct 0.3 % [facility] Comment: Interpretive Data Percent cell count reference ranges are not reported, since discordance with absolute values may lead to misinterpretation of CBC data. Current Interpretive Data was last revised on 2018. Lymphocyte pct 25.1 % [facility] Comment: Interpretive Data Percent cell count reference ranges are not reported, since discordance with absolute values may lead to misinterpretation of CBC data. Current Interpretive Data was last revised on 2018. Monocyte pct 8.4 % [facility] Comment: Interpretive Data Percent cell count reference ranges are not reported, since discordance with absolute values may lead to misinterpretation of CBC data. Current Interpretive Data was last revised on 2018. Eosinophil pct 4.2 % [facility] Comment: Interpretive Data Percent cell count reference ranges are not reported, since discordance with absolute values may lead to misinterpretation of CBC data. Current Interpretive Data was last revised on 2018. Basophil pct 0.5 % [facility] Comment: Interpretive Data Percent cell count reference ranges are not reported, since discordance with absolute values may lead to misinterpretation of CBC data. Current Interpretive Data was last revised on 2018. Blood 12/30/2024 7:02 AM CELL STRIPPER FINAL 12/30/2024 7:30 AM CELL STRIPPER FINAL Polly Null MD LAB BLOOD ORDERABLES Final Result [facility] [address] Department [place] [address] * CBC with auto differential (12/30/2024 7:02 AM CELL STRIPPER FINAL) Pathologist [facility] WBC 9.5 3.8 - 9.9 K/cumm Hgb 16.2 13.0 - 17.5 g/dL [facility] Hct 48.5 38.9 - 50.3 % [facility] Plt 296 150 - 400 K/cumm [facility] MPV 11.3 9.1 - 12.3 fL [facility] RBC 5.60 4.30 - 5.80 M/cumm [facility] MCV 86.6 81.3 - 96.4 fL [facility] CH MCH 28.9 27.1 - 33.3 pg [facility] MCHC 33.4 32.3 - 35.7 g/dL [facility] RDW CV 13.2 11.1 - 14.9 % [facility] RDW SD 41.4 35.7 - 48.1 fL [facility] NRBC abs 0.00 0.00 - 0.01 K/cumm [facility] Blood 12/30/2024 7:02 AM CELL STRIPPER FINAL 12/30/2024 7:30 AM CELL STRIPPER FINAL Narrative [facility] - 12/30/2024 7:52 AM CELL STRIPPER FINAL If most recent labs were drawn prior to 4 AM, draw only prior to initiating procedure. Polly Null MD LAB BLOOD ORDERABLES Final Result Performing Organization Address [facility] Co de Phone Number NAYANA MASTERSON [address] Department [place] [address] * (ABNORMAL) Basic metabolic panel (12/30/2024 7:02 AM CELL STRIPPER FINAL) Pathologist [facility] Sodium 137 135 - 145 mmol/L Potassium, pl 4.6 3.3 - 4.9 mmol/L [facility] Comment:Hemolysis present. R esults may be affected. Chloride 101 97 - 110 mmol/L [facility] CO2 21(L) 22 - 32 mmol/L [facility] Anion gap 15 2 - 15 mmol/L [facility] BUN 13 6 - 25 mg/dL [facility] Creatinine 1.14 0.80 - 1.30 mg/dL [facility] Glucose 124 70 - 199 mg/dL [facility] Comment: Interpretive Data Fasting glucose >/= 126 [...] 2022. Calcium 9.2 8.5 - 10.3 mg/dL [facility] Blood 12/30/2024 7:02 AM CELL STRIPPER FINAL 12/30/2024 7:30 AM CELL STRIPPER FINAL us Polly Null MD LAB BLOOD ORDERABLES Final Result [facility] [address] Department of Laboratories [place] [phone] documented in this encounter Visit Diagnoses Diagnosis [...] size. Flush before and after each use. Inactive Administered Medications - up to 3 most recent administrations Medication Order MAR Action Action Date Dose Rate Site fentaNYL (SUBLIMAZE) preservative free injection Code/trauma/sedation medication, Starting on Sat12/30/24 at 0837, Intra-Procedure (CV) Given 12/30/2024 9:07 AM CELL STRIPPER FINAL 25 mcg Given 12/30/2024 8:51 AM CELL STRIPPER FINAL 25 mcg Given 12/30/2024 8:46 AM CELL STRIPPER FINAL 25 mcg heparin in 0.9% sodium chloride 1,000 units/500 mL (2 unit/mL) infusion (premix) Code/trauma/sedation medication, Starting on Sat12/30/24 at 0827, Intra-Procedure (CV) Given 12/30/2024 8:27 AM CELL STRIPPER FINAL 1,000 mL iodixanoL (VISIPAQUE) 320 mg iodine/mL injection Code/trauma/sedation medication, Starting on Sat12/30/24 at 0919, Intra-Procedure (CV) Given 12/30/2024 9:19 AM CELL STRIPPER FINAL 90 mL lidocaine (XYLOCAINE) 10 mg/mL (1 %) injection Code/trauma/sedation medication, Starting on Sat12/30/24 at 0848, Intra-Procedure (CV), Indications: Administration of Local AnesthesiaIndications:Administrati on of Local Anesthesia Given 12/30/2024 8:48 AM CELL STRIPPER FINAL 10 mL Right Groin midazolam (VERSED) 1 mg/mL preservative free injection Administer over 2 Minutes, Code/trauma/sedation medication, Starting on Sat12/30/24 at 0837, Intra-Procedure (CV) Given 12/30/2024 9:07 AM CELL STRIPPER FINAL 1 mg Given 12/30/2024 8:51 AM CELL STRIPPER FINAL 1 mg Given 12/30/2024 8:47 AM CELL STRIPPER FINAL 1 mg sodium chloride 0.9% bolus Code/trauma/sedation continuous med, Starting on Sat12/30/24 at 0913, Intra-Procedure (CV) New Bag 12/30/2024 9:13 AM CELL STRIPPER FINAL 500 mL 999 mL/hr documented in this encounter Historical Medications * [...] Recently Administered Medications Times are shown in CELL STRIPPER FINAL. Scheduled Medication Order 12/28/2024 12/29/2024 12/30/2024 sodium [...] Intra-Procedure (CV) 0837 (Given - Provid er: Vrigen Chen RN)0847 (Given - Provider: Virgen Chen [...] Infusion - 0.9% Sodium Chloride 1 12/30/2024 sodium chloride 0.9% flush 0.5-20 [...] 12/30/2024 documented in this encounter Care Teams Stem Dryer Maintainer Relationship Specialty Start Date End Date Hai Pradhan MD PCP - General Internal Medicine 09/20/22 Pascale Wolff MD Consulting Physician Sleep Medicine 12/06/19 Rudi Patel MD Resident Neurosurgery 06/08/21 documented as of this encounter
--- OUTSIDE RECORDS SUMMARY | 2024-12-30 13:31 | XMS_ITS | Clinical Summary ---
Author Organization [facility] Address [address] [place] [address] Phone Care Team Providers Care Safety Deposit Clerk Name Role Phone Hai Pradhan MD Primary Care Provider [phone] Allergies Active Allergy Reactions Criticality Noted Date [...] patient's age to complete this topic Insurance [facility] FLOOR [facility] [id number] Care Teams Safety Deposit Clerk Relationship Specialty Start Date End Date Hai Pradhan MD [address] [place] [address] PCP - General Internal Medicine 02/18/23
--- OUTSIDE RECORDS SUMMARY | 2024-12-30 13:31 | XMS_ITS | Encounter Summary ---
Author Organization [facility] Address [address] [place] [address] Phone Care Team Providers Care Video Games Storywriter Name Role Phone Hai Pradhan MD Primary Care Provider [phone] Reason for Referral * Radiology Services (Routine) - Closed Specialty Diagnoses / Procedures Referred By Contac t Referred To Contact Radiology Diagnoses Lumbar radiculopathy Low back pain, unspecified back pain laterality, unspecified chronicity, unspecified whether sciatica present Procedures XR LUMBAR MYELO 1 PHY PC PAIN CONSULT XR LUMBAR MYELO 1 PHY Kenan Patel MD [address] [place] [address] Phone: tel: fax: Referral ID Status Reason Start Date Expiration Date Visits Re quested Visits Authorized [id number] Closed 02/12/2023 1 1 * Radiology Services (Routine) - Closed Specialty Diagnoses / Procedures Referred By Contac t Referred To Contact Radiology Diagnoses Lumbar radiculopathy Low back pain, unspecified back pain laterality, unspecified chronicity, unspecified whether sciatica present Procedures CT LUMBAR SPINE W CONTRAST Kenan Patel MD [address] [place] [address] Phone: tel: fax: Referral ID Status Reason Start Date Expiration Date Visits Re quested Visits Authorized [id number] Closed 02/12/2023 1 1 Encounter Details Date Type Department Care Team (Latest Contact Info) Description 02/12/2023 Transcribe Orders [facility] [address] [place] [address] Kenan Patel MD [address] [place] [address] Lumbar radiculopathy (Primary Dx); Low back pain, [...] PM T: ??02/21/2023 12:38 PM Report ID: [id number] Reading Location: ??[id number] Procedure Note Winter Campo MD - 02/21/2023 [...] Candelario Campo M.D. LC: ONEAL Report ID: [id number] Reading Location: [place] [address] IMPRESSION: Posterior lumbar instrumented fusion spanning L2 [...] AM T: ??02/21/2023 10:35 AM Report ID: [id number] Reading Location: ??[id number] Procedure Note Miguel Mchugh MD - 02/21/2023 [...] Miguel Mchugh M.D. KN: SOL Report ID: [id number] Reading Location: [id number] IMPRESSION: Lumbar Myelogram performed for CT Myelography. [...] present documented in this encounter Care Teams Video Games Storywriter Relationship Specialty Start Date End Date Hai Pradhan MD [address] [place], [place] [id number] PCP - General Internal Medicine 02/18/23 documented as of this encounter
--- OUTSIDE RECORDS SUMMARY | 2024-12-30 13:31 | XMS_ITS | Clinical Summary ---
Author Organization [facility] [address] Address [address] [place] [address] Phone Care Team Providers Care Infection Control Practitioner Name Role Phone Pascale Wolff MD Unavailable Rudi Patel MD Unavailable [phone] Hai Pradhan MD Primary Care Provider [phone] Allergies Active Allergy Reactions Criticality Noted Date Comments Hydrocodone Stomach upset,Sweating Low 10/25/2020 Penicillins Rash Medium 05/25/2010 Red itchy rash a day or two after starting it. Medications multivitamin (MULTIPLE VITAMINS) tablet tablet take 1 by Oral route daily 0 0 016 Active aspirin 81 mg tablet Take 1 tablet (81 mg total) by mouth daily Active albuterol HFA (PROVENTIL HFA,VENTOLIN HFA,PROAIR HFA) 90 mcg/actuation inhalerIndicati ons:Bronchospas m Prevention Inhale 2 puffs every 6 (six) hours as needed for wheezing 1 Inhaler [address] (CYMBALTA) 60 mg capsuleIndicati ons:Chronic midline low back pain without sciatica,Persis tent mood disorder (HCC) TAKE 1 CAPSULE (60 MG TOTAL) BY MOUTH DAILY 90 capsule 1 021 Active Additional Information Patient taking differently:60 mg oralEvery morning, Informant: Self, Reported on 12/30/2024 losartan (COZAAR) 100 mg tabletIndicatio ns:Essential hypertension TAKE 1 TABLET (100 MG TOTAL) BY MOUTH DAILY 90 tablet 3 021 Active Additional Information Patient taking differently:100 mg oralEvery morning, Informant: Self, Reported on 12/30/2024 rosuvastatin (CRESTOR) 5 mg tablet Take 1 tablet (5 mg total) by mouth every morning 025 Active Ozempic 2 mg/dose (8 mg/3 mL) pen injector injection Inject 0.75 mL (2 mg total) under the skin every 7 days Q Saturday 025 Active cyclobenzaprine (FLEXERIL) 10 mg tablet Take 1 tablet (10 mg total) by mouth 3 (three) times a day as needed for muscle spasms Active Colace 100 mg capsule Take 1 capsule (100 mg total) by mouth 2 (two) times a day as needed for constipation 022 Active meloxicam (MOBIC) 15 mg tablet Take 1 tablet (15 mg total) by mouth nightly 025 Active sildenafiL, pulm.hypertensi on, (REVATIO) 20 mg tabletIndicatio ns:Erectile dysfunction. Take 1 tablet (20 mg total) by mouth daily as needed (Before sex) 60 tablet 3 020 2024 Discontinued(T herapy completed) azelastine (ASTELIN) 137 mcg (0.1 %) nasal sprayIndication s:Dysfunction of both eustachian tubes Administer 1 spray into each nostril 2 (two) times a day Use in each nostril as directed 30 mL 5 020 2024 Discontinued(T herapy completed) clindamycin (CLEOCIN) 300 mg capsule Take 1 capsule by mouth 3 (three) times a day as needed For dental infection 020 2024 Discontinued(T herapy completed) fluticasone propionate (FLONASE) 50 mcg/actuation nasal sprayIndication s:Allergic Rhinitis Administer 1 spray into each nostril daily 1 Inhaler 1 021 2024 Discontinued(T herapy completed) ibuprofen (ADVIL,MOTRIN) 600 mg tablet Take 1 tablet (600 mg total) by mouth every 6 (six) hours as needed for pain 30 tablet 024 2024 Discontinued(T herapy completed) pregabalin (LYRICA) 75 mg capsule Take 1 capsule (75 mg total) by mouth 024 2024 Discontinued Active Problems Problem Noted Date Diagnosed Date Abnormal cardiovascular stress test 12/21/2024 Cubital tunnel syndrome on right 12/21/2024 Numbness and tingling of right hand 11/18/2024 [...] of this month with Dr. Patel at [facility]. MRI of the lumbar spine was done at [facility], and we will get those images and report. However there has been no imaging of the C-spine. Exam shows normal strength and reflexes except for mild bilateral hand nurses assistant weakness. Sensory exam in the arms and [...] 40. Assessment & Plan (01/27/2021 4:04 PM MONITORING ANALYST): He has started to work on his weight. His girlfriend who is a nurse is helping him. Hopefully this will get him on a trend downward instead of upward. Assessment & Plan (10/09/2020 10:37 AM MONITORING ANALYST): We recommended attention to his diet and [...] get it down. 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 Continue efforts. Assessment & Plan (11/01/2018 1:36 PM MONITORING ANALYST): He has lost about 10 lb since [...] continued 6. Avoid alcohol sedatives and other TECHNICAL RECRUITER depression that may worsen sleep apnea and disrupt normal sleep architecture Assessment & Plan (01/27/2021 4:03 PM MONITORING ANALYST): He continues on CPAP. He gets a good night's sleep. Assessment & Plan (07/22/2020 3:16 PM CDT): He went on CPAP and it has been life changing. He sleeping well. Energy level is good. Verruca vulgaris 10/31/2019 Assessment & Plan (12/01/2019 3:55 PM MONITORING ANALYST): I will set the patient up for the removal of the last remaining skin lesions. Assessment & Plan (10/31/2019 10:41 AM MONITORING ANALYST): Pathology results returned as verruca vulgaris. We will plan for removal of another 20-30 in the setting. Given the shear number we may have to bring him back 1 further time to complete the last few remaining. He is in understanding. Steatohepatitis, non-alcoholic 07/26/2019 Assessment & Plan (01/27/2021 4:03 PM MONITORING ANALYST): He has had a mild elevation of liver enzymes. I recommended weight loss. We will monitor labs periodically. Assessment & Plan (10/03/2020 3:47 PM MONITORING ANALYST): His last set of labs did show [...] only scores 3 or 4 on the Brinkley scale. However he seems to be at [...] 10/22/2018 Assessment & Plan (10/09/2020 10:37 AM MONITORING ANALYST): We went over his lipids for purposes [...] recheck. Assessment & Plan (10/03/2020 3:46 PM MONITORING ANALYST): He is here for biometric screening so [...] requested. Assessment & Plan (10/24/2018 3:21 PM MONITORING ANALYST): Blood pressure is in a good range [...] PATIENT. Assessment & Plan (01/27/2021 4:06 PM MONITORING ANALYST): He had mild coronary disease on cardiac [...] medicine. Assessment & Plan (10/24/2018 3:21 PM MONITORING ANALYST): He has no complaints of chest pain. [...] sugar. Assessment & Plan (10/03/2020 3:46 PM MONITORING ANALYST): We discussed the mild elevation of his blood sugar which might be pre diabetes. Weight loss would be helpful. Assessment & Plan (10/24/2018 3:22 PM MONITORING ANALYST): In the past, he has had some [...] COPD Assessment & Plan (01/27/2021 4:07 PM MONITORING ANALYST): He has mild to moderate symptoms. He has a rescue inhaler for use as needed. He has not been using his Symbicort because it is so expensive. He will call his insurance to see if alternatives are available. Assessment & Plan (10/09/2020 10:35 AM MONITORING ANALYST): He has chronic COPD from allergies. He [...] satisfactory. Assessment & Plan (10/24/2018 3:20 PM MONITORING ANALYST): He used to smoke cigarettes but quit many years ago. He does use a Symbicort inhaler and has a rescue inhaler as needed. Lungs are clear and oxygen saturations are normal. Continue same. Low back pain 08/25/2007 Overview (03/01/2017): Low back pain Assessment & Plan (10/21/2021 1:02 PM MONITORING ANALYST): Scanned office note, Dr. Patel, [facility]. [...] same. Assessment & Plan (10/24/2018 3:23 PM MONITORING ANALYST): He is on Cymbalta. His mood is [...] management. Assessment & Plan (12/05/2020 4:31 PM MONITORING ANALYST): Probable tendonitis. I advised that he try [...] (01/27/2021): Resolved. Went to ER for OM, frank Morse. Assessment & Plan (10/09/2020 10:36 AM MONITORING ANALYST): Since last , about five days ago, [...] Stephie. Assessment & Plan (11/13/2019 2:34 PM MONITORING ANALYST): Pt has improved over the past few [...] 10/31/2019 Assessment & Plan (10/16/2019 1:32 PM MONITORING ANALYST): We will set this patient up for excision under local anesthetic in the office. Given the shear number and sensitive nature of the area I have discussed that we may have to do this in 2 settings given the large number. He is in understanding. Assessment & Plan (10/11/2019 1:21 PM MONITORING ANALYST): Discussed the procedure of excision of the lesion and the patient expressed desire for removal of the inner thigh lesion and 3 on his back. Discussed wound care after procedure. Community acquired pneumonia of right lower lobe of lung 10/10/2019 11/28/2019 Overview (11/28/2019): See office note. Treated empirically. Assessment & Plan (10/24/2019 11:12 AM MONITORING ANALYST): He has had respiratory symptoms off and [...] Encounters Date Type Department Care Team Description 12/30/2024 8:30 AM MONITORING ANALYST - 12/30/2024 10:00 AM [facility] Surgery [facility] Cardiac Catheterization Lab [address] [place] [id number] Polly Null MD LEFT HEART CATHETERIZATION WITH CORONARY ANGIOGRAPHY AND WITH OR WITHOUT LEFT VENTRICULOGRAM [id number] 12/30/2024 6:32 AM MONITORING ANALYST - 12/30/2024 11:50 AM MONITORING ANALYST Hospital Encounter [facility] [address] [place] [id number] Polly Null MD Abnormal cardiovascular stress test Discharge Disposition: Discharge to home or self care 12/23/2024 1:30 PM MONITORING ANALYST Office Visit [facility] [address] [place] [address] [address], [place] [address] Enid Newsome NP ERICH (obstructive sleep apnea) (Primary Dx) 12/21/2024 11:15 AM MONITORING ANALYST Office Visit [facility] [address] [place] [address] [address] [place] [address] Lance Zuniga MD Cubital tunnel syndrome on right (Primary Dx); Right arm pain 12/21/2024 8:15 AM MONITORING ANALYST Office Visit [facility] [address] [facility] [address] [place] [address] Polly Null MD Primary hypertension (Primary Dx); Abnormal cardiovascular stress test; Mixed hyperlipidemia; ERICH (obstructive sleep apnea) 12/21/2024 7:43 AM MONITORING ANALYST - 12/21/2024 11:59 PM MONITORING ANALYST Hospital Encounter [facility] [address] [place] [address] [address] [place] [address] Discharge Disposition: Discharge to home or self care 12/21/2024 Telephone [facility] [address] [place] [address] [address] [place] [address] Lance Zuniga MD 12/21/[address] [place] [phone] Polly Null MD 12/08/2024 Telephone [facility] [address] [facility] [address] [place] [address] Pascale Wolff MD 11/29/2024 Telephone [facility] [address] [facility] [address] [place] [address] Pascale Wolff MD 11/09/2024 8:10 AM MONITORING ANALYST - 11/09/2024 11:59 PM MONITORING ANALYST Hospital Encounter [facility] Testing [address] [place] [address] Numbness and tingling of right hand [R20.0, [...] CAD, mildly diminished LVEF, Dr. Perry, [facility]. CERVICAL FUSION 11/25/2021 - 11/24/2022 x4 SPINAL CORD STIMULATOR IMPLANT 11/25/2022 - 11/24/2023 Medical History Medical History Date Comments Chronic obstructive pulmonar y disease (HCC) 02/23/2010 COPD Hyperglycemia 08/25/2014 Elevated blood s ugar Morbid obesity (HCC) 08/25/2013 Obesity Steatosis of liver 10/05/2014 Hepatic steat osis Abnormal findings on cardiac catheterization 12/13/2014 Mild CAD, mildly decreased L V systolic function. See report, [facility], Dr. Perry. Acute bacterial sinusitis 10/13/2019 See of fice note. Non-recurrent acute suppurat catrina otitis media of right ear without spontaneous rupture of tympanic membrane 01/31/2020 See office note. Non morbid obesity 10/24/2018 Obesity Covid-19 08/15/2020 Dysfunction of both eustachian tubes 09/29/2020 Resolved. Went to ER for OM, got Duricef. Diarrhea 11/13/2019 See office Stephie ordaz. Tendonitis of elbow, right 12/05/2020 See o ffStephie hansen ANP. Subsequent additional evaluations suggested mild right carpal tunnel syndrome, improved with conservative management. Mild persistent asthma witho ut complication 08/25/2012 Asthma/COPD, former smoker. Sleep apnea PONV (postoperative nausea a nd vomiting) Hypertension Type 2 diabetes mellitus (HCC) Chronic pain disorder Abnormal cardiovascular stress test Family History Medical History Relation Name Comments Kidney cancer Father Other Father Age 65 with unk now cancer.; Stomach cancer Father Testicular cancer Father In his 40s enlarged heart Father Other Mother Age 67 alive an d well.; Diabetes type II Paternal Grandfather Diabetes type II Paternal Grandmother Relation Name Status Comments Father Mother Alive Paternal Grandfather Paternal Grandmother Social History Tobacco [...] on file Legal Sex Male 9:12 AM MONITORING ANALYST Gender Identity Not on file Sexual Orientation Not on file Obstetrics History Last Filed Vital Signs Vital Sign Reading Time Taken Comments Blood Pressure 136/74 12/30/2024 11:20 AM MONITORING ANALYST Pulse 83 12/30/2024 11:25 AM MONITORING ANALYST Temperature 37 ??C (98.6 ??F) 12/30/2024 7:50 AM MONITORING ANALYST Respiratory Rate 18 08/30/2024 5:11 AM CDT Oxygen Saturation 96% 12/30/2024 11:25 AM MONITORING ANALYST Inhaled Oxygen Concentration - - Weight 106.1 kg (234 lb) 12/30/2024 7:50 AM MONITORING ANALYST Height 170.2 cm (5' 7 ) 12/30/2024 7:50 AM MONITORING ANALYST Body Mass Index 36.65 12/30/2024 7:50 AM MONITORING ANALYST Plan of Treatment Health Maintenance Due Date [...] Completed 07/21/2019 Medical Devices Implanted Type Area Supply Coordinator Device Identifier Shelf Expiration Date Model / Serial / Lot Neurostimulator Neurostimulator Back [email or web address] Device Closure Vascade Od5 Fr Femoral Artery [id number] - [id number] Implanted:Qty: 1 on 12/30/2024 by Polly Null MD at [facility] [email or web address] 04/02/2026 [id number] / / [id number] Procedures Procedure Name Priority Date/Time Associated Diagnosis Comments POCT GLUCOSE DEVICE Routine 12/30/2024 9 :36 AM MONITORING ANALYST LEFT HEART CATHETERIZATION WITH CORONARY ANGIOGRAPHY AND WITH AND WITHOUT LEFT VENTRICULOGRAM Routine 12/30/2024 9:14 AM MONITORING ANALYST Abnormal cardiovascular stress test POCT GLUCOSE DEVICE Routine 12/30/2024 7 :07 AM MONITORING ANALYST EGFR STAT 12/30/2024 7:02 AM MONITORING ANALYST DIFFERENTIAL AUTO STAT 12/30/2024 7:0 2 AM MONITORING ANALYST CBC WITH AUTO DIFFERENTIAL STAT 12/30/2024 7:02 AM MONITORING ANALYST BASIC METABOLIC PANEL STAT 12/30/2024 7:02 AM MONITORING ANALYST XR ELBOW RIGHT 3 OR MORE VIEWS Schedule Routine, Read Routine (OP Routine) 12/21/2024 11:00 AM MONITORING ANALYST Right arm pain POCT LIPID PANEL Routine 12/21/2024 9:40 AM MONITORING ANALYST Mixed hyperlipidemia EMG/NCV Routine 11/09/2024 9:30 AM MONITORING ANALYST Cubital tunnel syndrome on right HEPATITIS C ANTIBODY Routine 07/21/2019 7:06 AM CDT from Last 3 Months or Most Recently Relevant to Health Maintenance Results * POCT glucose (12/30/2024 9:36 AM MONITORING ANALYST) Glucose, POC 113 70 - 199 mg/dL Blood 12/30/2024 9:36 AM MONITORING ANALYST 12/30/2024 9:36 AM MONITORING ANALYST us Polly Null MD LAB POCT ORDERABLES - DEVICE Final Result [facility] [address] Department [place] [address] * LEFT HEART CATHETERIZATION WITH CORONARY ANGIOGRAPHY AND WITH AND WITHOUT LEFT VENTRICULOGRAM (12/30/2024 9:14 AM MONITORING ANALYST) Anatomical Region Laterality Modality X-Ray Angiograph y Narrative 12/30/2024 9:33 AM MONITORING ANALYST CARDIAC CATHETERIZATION REPORT Javier Sanchez ? IP ENCOUNTER: @CSN@ Date of Procedure: 12/30/2024 ?? BIRTHDATE: 1970 TENTER: Polly Null MD PREPROCEDURE DIAGNOSES: This is [...] Right common femoral arterial angiogram. Deployment 5 [place]guillan Vascade closure device. 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 ??Moderate sedation was given and the right groin infiltrated using 1% lidocaine. ??Five Anguillan sheath was obtained using micropuncture needle and modified Seldinger technique. ?? Selective left coronary angiogram was done using JL4 catheter with the tip of the catheter placed in the left main coronary artery. ??Selective right coronary angiogram was done using JR4 catheter with the tip of the catheter placed in the right coronary artery. ??After that 5 Anguillan pigtail catheter was advanced across aortic valve into the left ventricular with measurement of LVEDP and measure gradient across aortic valve. ??Right common femoral arterial angiogram was done and deployed 5 [place]guillan Vascade closure device. Access site: ??Right common femoral artery. Hemostasis: ??5 Anguillan Vascade closure device. CONCLUSIONS Nonobstructive CAD. PLAN Risk factor modification for CAD. us Polly Null MD CV CARDIAC CATH PROC EDURES Final Result * POCT glucose (12/30/2024 7:07 AM MONITORING ANALYST) Pathologist [facility] Glucose, POC 107 70 - 199 mg/dL Blood 12/30/2024 7:07 AM MONITORING ANALYST 12/30/2024 7:07 AM MONITORING ANALYST Polly Null MD LAB POCT ORDERABLES - DEVICE Final Result Performing Organization Address City/State/[facility] Co id Phone Number [facility] [id number] Department [place] [address] * eGFR (12/30/2024 7:02 AM MONITORING ANALYST) eGFR 77 >=60 mL/min/1. 73 m2 Comment: [...] last reviewed 2021. Blood 12/30/2024 7:02 AM MONITORING ANALYST 12/30/2024 7:30 AM MONITORING ANALYST Polly Null MD LAB BLOOD ORDERABLES Final Result [facility] [id number] Department [place] [address] * Differential, auto (12/30/2024 7:02 AM MONITORING ANALYST) Neutrophil abs 5.9 1.5 - 6.5 K/cumm Imm gran abs 0.0 0.0 - 0.1 K/cumm [facility] Lymphocyte abs 2.4 0.8 - 3.3 K/cumm [facility] Monocyte abs 0.8 0.2 - 0.8 K/cumm [facility] Eosinophil abs 0.4 0.0 - 0.5 K/cumm [facility] Basophil abs 0.1 0.0 - 0.1 K/cumm [facility] Neutrophil pct 61.5 % [facility] Comment: Interpretive Data Percent cell count reference ranges are not reported, since discordance with absolute values may lead to misinterpretation of CBC data. Current Interpretive Data was last revised on 2018. Imm gran pct 0.3 % [facility] Comment: Interpretive Data Percent cell count reference ranges are not reported, since discordance with absolute values may lead to misinterpretation of CBC data. Current Interpretive Data was last revised on 2018. Lymphocyte pct 25.1 % [facility] Comment: Interpretive Data Percent cell count reference ranges are not reported, since discordance with absolute values may lead to misinterpretation of CBC data. Current Interpretive Data was last revised on 2018. Monocyte pct 8.4 % [facility] Comment: Interpretive Data Percent cell count reference ranges are not reported, since discordance with absolute values may lead to misinterpretation of CBC data. Current Interpretive Data was last revised on 2018. Eosinophil pct 4.2 % [facility] Comment: Interpretive Data Percent cell count reference ranges are not reported, since discordance with absolute values may lead to misinterpretation of CBC data. Current Interpretive Data was last revised on 2018. Basophil pct 0.5 % [facility] Comment: Interpretive Data Percent cell count reference ranges are not reported, since discordance with absolute values may lead to misinterpretation of CBC data. Current Interpretive Data was last revised on 2018. Blood 12/30/2024 7:02 AM MONITORING ANALYST 12/30/2024 7:30 AM MONITORING ANALYST us Polly Null MD LAB BLOOD ORDERABLES Final Result [facility] [id number] Department [place] [address] * CBC with auto differential (12/30/2024 7:02 AM MONITORING ANALYST) WBC 9.5 3.8 - 9.9 K/cumm Hgb 16.2 13.0 - 17.5 g/dL [facility] Hct 48.5 38.9 - 50.3 % [facility] Plt 296 150 - 400 K/cumm [facility] MPV 11.3 9.1 - 12.3 fL [facility] RBC 5.60 4.30 - 5.80 M/cumm [facility] MCV 86.6 81.3 - 96.4 fL [facility] MCH 28.9 27.1 - 33.3 pg [facility] MCHC 33.4 32.3 - 35.7 g/dL [facility] RDW CV 13.2 11.1 - 14.9 % [facility] RDW SD 41.4 35.7 - 48.1 fL [facility] NRBC abs 0.00 0.00 - 0.01 K/cumm [facility] Blood 12/30/2024 7:02 AM MONITORING ANALYST 12/30/2024 7:30 AM MONITORING ANALYST Narrative [facility] - 12/30/2024 7:52 AM MONITORING ANALYST If most recent labs were drawn prior to 4 AM, draw only prior to initiating procedure. Polly Null MD LAB BLOOD ORDERABLES Final Result [facility] [address] Department [place] [address] * (ABNORMAL) Basic metabolic panel (12/30/2024 7:02 AM MONITORING ANALYST) Sodium 137 135 - 145 mmol/L Potassium, pl 4.6 3.3 - 4.9 mmol/L [facility] Comment:Hemolysis present. R esults may be affected. Chloride 101 97 - 110 mmol/L [facility] CO2 21(L) 22 - 32 mmol/L [facility] Anion gap 15 2 - 15 mmol/L [facility] CH BUN 13 6 - 25 mg/dL [facility] Creatinine 1.14 0.80 - 1.30 mg/dL [facility] Glucose 124 70 - 199 mg/dL [facility] Comment: Interpretive Data Fasting glucose >/= 126 [...] classification and Diagnosis of Diabetes Diabetes Care 202; 46: S19-S40. Current interpretive data was last revised 2022. Calcium 9.2 8.5 - 10.3 mg/dL [facility] Blood 12/30/2024 7:02 AM MONITORING ANALYST 12/30/2024 7:30 AM MONITORING ANALYST Polly Null MD LAB BLOOD ORDERABLES Final Result Performing Organization Address [facility]/ZIP Co de Phone Number [facility] [address] Department [place] [address] * XR Elbow Right 3 or More Views (12/21/2024 11:00 AM MONITORING ANALYST) Anatomical Region Laterality Modality Upper Extremities, Elbow Right Digital Radiography Narrative 12/21/2024 11:50 AM MONITORING ANALYST Three views right elbow shows [id number] degenerative changes throughout capitellum lines up with the radial head on all views no fractures us Lance Zuniga MD IMG XR PROCEDURES Final Resu lt * POCT lipid panel (12/21/2024 9:40 AM MONITORING ANALYST) Cholesterol, POC <100 mg/dL Comment:GLU = 165 HDL, POC 35 mg/dL Triglycerides, POC 114 mg/dL LDL Cholesterol POC 42 mg/dL Chol/HDL Ratio, POC N/A Non-HDL Cholesterol, POC N/A mg/dL Cholesterol Total, POC <100 mg/dL Capillary blood 12/21/2024 9 :40 AM MONITORING ANALYST Polly Null MD POINT OF CARE TEST O RDERABLES Final Result * EMG/NCV - (11/09/2024 9:30 AM MONITORING ANALYST) Anatomical Region Laterality Modality EMG, EMG Impressions 11/09/2024 9:31 AM MONITORING ANALYST History: This is a 54 years old [...] MD NEUROLOGY ORDERABLES Final Resu lt * Hepatitis C antibody (07/21/2019 7:06 AM CDT) Hep C Ab NON-REACT CATRINA NON-REACT CATRINA [facility] SIGNAL TO CUT-OFF 0.03 <1.00 [facility] [place] Comment: HCV antibody was non-reactive. There is no laboratory evidence of HCV infection. In most cases, no further action is required. However, if recent HCV exposure is suspected, a test for HCV RNA (test code 61858) is suggested. For additional information please refer to http://education.Crysalin/faq/CKD97o0 (This link is being provided for informational/ educational purposes only.) 07/21/2019 7:06 AM CDT 07/21/2019 7:11 AM CDT Narrative [facility] - 07/23/2019 4:34 PM CDT FASTING:YES FASTING: YES Resulting Agency Comment Performing Organization Information: ?Site ID: [id number] ?Name: [facility] ?Address: [address] [address] ?Director: Orion Glynn D.O., MPH Az Allison MD LAB MICROBIOLOGY - GENERAL OR DERABLES Final Result [facility] from Last 3 Months or Most Recently Relevant to Health Maintenance Insurance [employer] [facility] WORKERS COMPENSATION GENERIC WORKERS COMPENSATION GENERIC Care Teams Infection Control Practitioner Relationship Specialty Start Date End Date Hai Pradhan MD PCP - General Internal Medicine 09/20/22 Pascale Wolff MD Consulting Physician Sleep Medicine 12/06/19 Rudi Patel MD Resident Neurosurgery 06/08/21
--- OUTSIDE RECORDS SUMMARY | 2024-12-30 13:31 | XMS_ITS | Data Portability ---
[facility] Address [address] [place] [address] Assessment No assessment recorded. Plan of Treatment Reminders Order Date Submit Date Provider Last Modified By Organization Details Last Modified Time Details Appointments None record ed. Lab None record ed. Referral None record ed. Procedures None record ed. Surgeries None record ed. Imaging None record ed. Medication Orders None record ed. Patient TargetsNo targets recorded. Patient InstructionsNo instructions recorded. Reason for Referral None Reported. Medical Equipment None Reported. Medications Name Sig Start Date Stop Date Status Note LastModified by Organization Details LastModified Time cyclobenzaprine 10 mg tablet TAKE 1 TABLET BY MOUTH EVERY NIGHT NEEDED active Not Available Not Available No t Available clindamycin HCl 300 mg capsule TAKE ONE CAPSULE BY MOUTH EVERY 6 HOURS TILL GONE active Not Available Not Available No t Available azithromycin 250 mg tablet active Not Available Not Availabl e Not Available prednisone 20 mg tablet active Not Available Not Available No t Available tramadol 50 mg tablet TK 1 T PO Q 4 H PRN P active Not Available Not Available No t Available cefadroxil 500 mg capsule active Not Available Not Available N ot Available azelastine 137 mcg (0.1 %) nasal spray active Not Available Not Available Not Available methylprednisol one 4 mg tablets in a dose pack active Not Available Not Available No t Available albuterol sulfate HFA 90 mcg/actuation aerosol inhaler active Not Available Not Availa ble Not Available losartan 100 mg tablet TAKE 1 TABLET (100 MG TOTAL) BY MOUTH DAILY active Not Available Not Available No t Available naproxen 500 mg tablet TAKE 1 TABLET BY MOUTH TWICE A DAY WITH MEALS WITH FOOD active Not Available Not Available No t Available duloxetine 60 mg capsule,delayed release TAKE 1 CAPSULE (60 MG TOTAL) BY MOUTH DAILY active Not Available Not Available No t Available Symbicort 160 mcg-4.5 mcg/actuation HFA aerosol inhaler active Not Available Not Available Not Available Vitals None Recorded Social History None recorded. Functional Status None recorded. Mental Status None recorded. Family History Nothing Reported. Medical History No medical history recorded. Immunizations Vaccine Type Date Status Note Provider Nam e and Address Organization Details Recorded Time COVID-19, mRNA, LNP-S, PF, 100 mcg/0.5mL dose or 50 mcg/0.25mL dose 03/24/2021 completed Minda Casanova MA null, [place] - [facility] 03/24/2021 15:52:36 COVID-19, mRNA, LNP-S, PF, 100 mcg/0.5mL dose or 50 mcg/0.25mL dose 04/21/2021 completed Julienne Salcido RN null, [place] - [facility] 04/21/2021 15:11:50 Past Encounters Encounter ID Performer Location Encounter Start Date Encounter Closed Date Diagnosis/Indication Diagnosis SNOMED-CT Code Diagnosis ICD10 Code Diagnosis Note [id number] DENEEN Guerra 14 [facility] [address] [place]ata [id number] 1 03/24/2021 15:02:45 03/24/2021 16:17:15 Administration of SARS-CoV-2 antigen vaccine [id number] Z23 [id number] DENEEN Guerra [address] [place] [address] 04/21/2021 14:46:55 04/21/2021 15:46:03 Administration of SARS-CoV-2 antigen vaccine [id number] Z23 Health Concerns Section Related Observation LastModified by Organization Detai ls LastModified Time None Recorded Concern Status LastModified by Organization Details LastModified Time None Recorded Advance Directives Directive None Recorded Payers Encounter Date Sequence Insurance Name Policy Number Policy Clement Covered Member ID Clement Member ID Guarantor Name 03/24/2021 [employer] Javier Sanchez [id number] Javier Sanchez 04/21/2021 [employer] Javier Sanchez [id number] Javier Sanchez
--- OUTSIDE RECORDS SUMMARY | 2024-12-30 13:31 | XMS_ITS | Referral Summary ---
Author Organization [facility] [address] Address [address] [place] [address] Phone Care Team Providers Care Farm Implement Mechanic Name Role Phone Pascale Wolff MD Unavailable Rudi Patel MD Unavailable [phone] Hai Pradhan MD Primary Care Provider [phone] Encounters Date Type Department Care Team Description 12/30/2024 8:30 AM BUSINESS SOLUTIONS CONSULTANT - 12/30/2024 10:00 AM [facility] Surgery [facility] Cardiac Catheterization Lab [address] [place] [address] Polly Null MD LEFT HEART CATHETERIZATION WITH CORONARY ANGIOGRAPHY AND WITH OR WITHOUT LEFT VENTRICULOGRAM [id number] 12/30/2024 6:32 AM BUSINESS SOLUTIONS CONSULTANT - 12/30/2024 11:50 AM [facility] Hospital Encounter [facility] Cardiac Catheterization Lab [address] [place] [address] Polly Null MD Abnormal cardiovascular stress test Discharge Disposition: Discharge to home or self care 12/23/2024 1:30 PM BUSINESS SOLUTIONS CONSULTANT Office Visit [facility] [address] [place] [address] Enid Newsome NP ERICH (obstructive sleep apnea) (Primary Dx) 12/21/2024 Telephone [facility] [address] [place] [address] Lance Zuniga MD 12/21/2024 Telephone [facility] [address] [place] [address] Polly Null MD 12/21/2024 7:43 AM BUSINESS SOLUTIONS CONSULTANT - 12/21/2024 11:59 PM BUSINESS SOLUTIONS CONSULTANT Hospital Encounter [facility] Medical [facility]opedics [facility] Sports Medicine [address] [place] [address] Discharge Disposition: Discharge to home or self care 12/21/2024 11:15 AM BUSINESS SOLUTIONS CONSULTANT Office Visit [facility] [address] [place] [address] Lance Zuniga MD Cubital tunnel syndrome on right (Primary Dx); Right arm pain 12/21/2024 8:15 AM BUSINESS SOLUTIONS CONSULTANT Office Visit [facility] [address] [place] [address] Polly Null MD Primary hypertension (Primary Dx); Abnormal cardiovascular stress test; Mixed hyperlipidemia; ERICH (obstructive sleep apnea) 12/08/2024 Telephone [facility] [address] [place] [address] Pascale Wolff MD 11/29/2024 Telephone [facility] [address] [place] [address] Pascale Wolff MD 11/09/2024 8:10 AM BUSINESS SOLUTIONS CONSULTANT - 11/09/2024 11:59 PM BUSINESS SOLUTIONS CONSULTANT Hospital Encounter [facility] Neurological Disorders Testing [address] [place] [address] Numbness and tingling of right hand [R20.0, [...] of this month with Dr. Patel at [facility]. MRI of the lumbar spine was done at [facility], and we will get those images and report. However there has been no imaging of the C-spine. 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 Sensory exam in the arms and [...] 40. Assessment & Plan (01/27/2021 4:04 PM BUSINESS SOLUTIONS CONSULTANT): He has started to work on his weight. His girlfriend who is a nurse is helping him. Hopefully this will get him on a trend downward instead of upward. Assessment & Plan (10/09/2020 10:37 AM BUSINESS SOLUTIONS CONSULTANT): We recommended attention to his diet and [...] to get it down. 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 Continue efforts. Assessment & Plan (11/01/2018 1:36 PM BUSINESS SOLUTIONS CONSULTANT): He has lost about 10 lb since [...] in some sildenafil for use as needed. ERCIH (obstructive sleep apnea) 11/19/2019 Overview (11/28/2019): Portable [...] continued 6. 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 He gets a good night's sleep. Assessment & Plan (07/22/2020 3:16 PM CDT): He went on CPAP and it has been life changing. He sleeping well. Energy level is good. Verruca vulgaris 10/31/2019 Assessment & Plan (12/01/2019 3:55 PM BUSINESS SOLUTIONS CONSULTANT): I will set the patient up for the removal of the last remaining skin lesions. Assessment & Plan (10/31/2019 10:41 AM BUSINESS SOLUTIONS CONSULTANT): Pathology results returned as verruca vulgaris. We will plan for removal of another 20-30 in the setting. Given the shear number we may have to bring him back 1 further time to complete the last few remaining. He is in understanding. Steatohepatitis, non-alcoholic 07/26/2019 Assessment & Plan (01/27/2021 4:03 PM BUSINESS SOLUTIONS CONSULTANT): He has had a mild elevation of liver enzymes. I recommended weight loss. We will monitor labs periodically. Assessment & Plan (10/03/2020 3:47 PM BUSINESS SOLUTIONS CONSULTANT): His last set of labs did show [...] only scores 3 or 4 on the [place] scale. However he seems to be at risk for sleep apnea. He is quite obese. He has a Mallampati class 2-3 exam. His friends tell salomonde that he snores. We will request a [...] 10/22/2018 Assessment & Plan (10/09/2020 10:37 AM BUSINESS SOLUTIONS CONSULTANT): We went over his lipids for purposes [...] recheck. Assessment & Plan (10/03/2020 3:46 PM BUSINESS SOLUTIONS CONSULTANT): He is here for biometric screening so [...] requested. Assessment & Plan (10/24/2018 3:21 PM BUSINESS SOLUTIONS CONSULTANT): Blood pressure is in a good range [...] PATIENT. Assessment & Plan (01/27/2021 4:06 PM BUSINESS SOLUTIONS CONSULTANT): He had mild coronary disease on cardiac [...] medicine. Assessment & Plan (10/24/2018 3:21 PM BUSINESS SOLUTIONS CONSULTANT): He has no complaints of chest pain. [...] sugar. Assessment & Plan (10/03/2020 3:46 PM BUSINESS SOLUTIONS CONSULTANT): We discussed the mild elevation of his blood sugar which might be pre diabetes. Weight loss would be helpful. Assessment & Plan (10/24/2018 3:22 PM BUSINESS SOLUTIONS CONSULTANT): In the past, he has had some [...] COPD Assessment & Plan (01/27/2021 4:07 PM BUSINESS SOLUTIONS CONSULTANT): He has mild to moderate symptoms. He has a rescue inhaler for use as needed. He has not been using his Symbicort because it is so expensive. He will call his insurance to see if alternatives are available. 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 He [...] satisfactory. Assessment & Plan (10/24/2018 3:20 PM BUSINESS SOLUTIONS CONSULTANT): He used to smoke cigarettes but quit many years ago. He does use a Symbicort inhaler and has a rescue inhaler as needed. Lungs are clear and oxygen saturations are normal. Continue same. Low back pain 08/25/2007 Overview (03/01/2017): Low back pain Assessment & Plan (10/21/2021 1:02 PM BUSINESS SOLUTIONS CONSULTANT): Scanned office note, Dr. Patel, [facility]. [...] same. Assessment & Plan (10/24/2018 3:23 PM BUSINESS SOLUTIONS CONSULTANT): He is on Cymbalta. His mood is [...] management. Assessment & Plan (12/05/2020 4:31 PM BUSINESS SOLUTIONS CONSULTANT): Probable tendonitis. I advised that he try [...] Resolved. Went to ER for OM, got Mini. Assessment & Plan (10/09/2020 10:36 AM BUSINESS SOLUTIONS CONSULTANT): Since last , about five days ago, [...] no pain as such. Non-recurrent acute suppurat catirna otitis media of right ear without spontaneous rupture of tympanic membrane 01/31/2020 10/03/2020 Overview (07/22/2020): See office orlin. Assessment & Plan (02/04/2020 3:29 PM CDT): [...] Diarrhea 11/13/2019 01/27/2021 Overview (01/27/2021): See office noteStephie. Assessment & Plan (11/13/2019 2:34 PM BUSINESS SOLUTIONS CONSULTANT): Pt has improved over the past few [...] 10/31/2019 Assessment & Plan (10/16/2019 1:32 PM BUSINESS SOLUTIONS CONSULTANT): We will set this patient up for excision under local anesthetic in the office. Given the shear number and sensitive nature of the area I have discussed that we may have to do this in 2 settings given the large number. He is in understanding. Assessment & Plan (10/11/2019 1:21 PM BUSINESS SOLUTIONS CONSULTANT): Discussed the procedure of excision of the lesion and the patient expressed desire for removal of the inner thigh lesion and 3 on his back. Discussed wound care after procedure. Community acquired pneumonia of right lower lobe of lung 10/10/2019 11/28/2019 Overview (11/28/2019): See office note. Treated empirically. Assessment & Plan (10/24/2019 11:12 AM BUSINESS SOLUTIONS CONSULTANT): He has had respiratory symptoms off and [...] file Legal Sex Male 9:12 AM BUSINESS SOLUTIONS CONSULTANT Gender Identity Not on file Sexual Orientation Not on file Last Filed Vital Signs Vital Sign Reading Time Taken Comments Blood Pressure 136/74 12/30/2024 11:20 AM BUSINESS SOLUTIONS CONSULTANT Pulse 83 12/30/2024 11:25 AM BUSINESS SOLUTIONS CONSULTANT Temperature 37 ??C (98.6 ??F) 12/30/2024 7:50 AM BUSINESS SOLUTIONS CONSULTANT Respiratory Rate 18 08/30/2024 5:11 AM CDT Oxygen Saturation 96% 12/30/2024 11:25 AM BUSINESS SOLUTIONS CONSULTANT Inhaled Oxygen Concentration - - Weight 106.1 kg (234 lb) 12/30/2024 7:50 AM BUSINESS SOLUTIONS CONSULTANT Height 170.2 cm (5' 7 ) 12/30/2024 7:50 AM BUSINESS SOLUTIONS CONSULTANT Body Mass Index 36.65 12/30/2024 7:50 AM BUSINESS SOLUTIONS CONSULTANT Plan of Treatment Not on file Medical Devices Implanted Type Area Product Marketing Analyst Device Identifier Shelf Expiration Date Model / Serial / Lot Neurostimulator Neurostimulator Back [employer] Device Closure Vascade Od5 Fr Femoral Artery [id number] - [id number] Implanted:Qty: 1 on 12/30/2024 by Polly Null MD at [facility] [employer] 04/02/2026 [id number] / / [id number] Procedures Procedure Name Priority Date/Time Associated Diagnosis Comments POCT GLUCOSE DEVICE Routine 12/30/2024 9 :36 AM BUSINESS SOLUTIONS CONSULTANT LEFT HEART CATHETERIZATION WITH CORONARY ANGIOGRAPHY AND WITH AND WITHOUT LEFT VENTRICULOGRAM Routine 12/30/2024 9:14 AM BUSINESS SOLUTIONS CONSULTANT Abnormal cardiovascular stress test POCT GLUCOSE DEVICE Routine 12/30/2024 7 :07 AM BUSINESS SOLUTIONS CONSULTANT EGFR STAT 12/30/2024 7:02 AM BUSINESS SOLUTIONS CONSULTANT DIFFERENTIAL AUTO STAT 12/30/2024 7:0 2 AM BUSINESS SOLUTIONS CONSULTANT CBC WITH AUTO DIFFERENTIAL STAT 12/30/2024 7:02 AM BUSINESS SOLUTIONS CONSULTANT BASIC METABOLIC PANEL STAT 12/30/2024 7:02 AM BUSINESS SOLUTIONS CONSULTANT XR ELBOW RIGHT 3 OR MORE VIEWS Schedule Routine, Read Routine (OP Routine) 12/21/2024 11:00 AM BUSINESS SOLUTIONS CONSULTANT Right arm pain POCT LIPID PANEL Routine 12/21/2024 9:40 AM BUSINESS SOLUTIONS CONSULTANT Mixed hyperlipidemia EMG/NCV Routine 11/09/2024 9:30 AM BUSINESS SOLUTIONS CONSULTANT Cubital tunnel syndrome on right HEPATITIS C ANTIBODY Routine 07/21/2019 7:06 AM CDT from Last 3 Months or Most Recently Relevant to Health Maintenance Results * POCT glucose (12/30/2024 9:36 AM BUSINESS SOLUTIONS CONSULTANT) Glucose, POC 113 70 - 199 mg/dL Blood 12/30/2024 9:36 AM BUSINESS SOLUTIONS CONSULTANT 12/30/2024 9:36 AM BUSINESS SOLUTIONS CONSULTANT us Polly Null MD LAB POCT ORDERABLES - DEVICE Final Result NAY[facility] MAST[address] Department of Laboratories [place], [place] [id number] * LEFT HEART CATHETERIZATION WITH CORONARY ANGIOGRAPHY AND WITH AND WITHOUT LEFT VENTRICULOGRAM (12/30/2024 9:14 AM BUSINESS SOLUTIONS CONSULTANT) Anatomical Region Laterality Modality X-Ray Angiograph y Narrative 12/30/2024 9:33 AM BUSINESS SOLUTIONS CONSULTANT CARDIAC CATHETERIZATION REPORT Javier Sanchez ? IP ENCOUNTER: @CSN@ Date of Procedure: 12/30/2024 ?? BIRTHDATE: 1970 AUTOMATION QA TESTER: Polly Null MD PREPROCEDURE DIAGNOSES: This is [...] Right common femoral arterial angiogram. Deployment 5 Georgian Vascade closure device. FINDINGS: Left main without [...] informed consent patient was brought into the medical laboratory technician where she was draped and prepped in the usual manner. ??Moderate sedation was given and the right groin infiltrated using 1% lidocaine. ??Five Georgian sheath was obtained using micropuncture needle and modified Seldinger technique. ?? Selective left coronary angiogram was done using JL4 catheter with the tip of the catheter placed in the left main coronary artery. ??Selective right coronary angiogram was done using JR4 catheter with the tip of the catheter placed in the right coronary artery. ??After that 5 Georgian pigtail catheter was advanced across aortic valve into the left ventricular with measurement of LVEDP and measure gradient across aortic valve. ??Right common femoral arterial angiogram was done and deployed 5 Georgian Vascade closure device. Access site: ??Right common femoral artery. Hemostasis: ??5 Georgian Vascade closure device. CONCLUSIONS Nonobstructive CAD. PLAN Risk factor modification for CAD. Polly Null MD CV CARDIAC CATH PROC EDURES Final Result * POCT glucose (12/30/2024 7:07 AM BUSINESS SOLUTIONS CONSULTANT) Glucose, POC 107 70 - 199 mg/dL Blood 12/30/2024 7:07 AM BUSINESS SOLUTIONS CONSULTANT 12/30/2024 7:07 AM BUSINESS SOLUTIONS CONSULTANT Polly Null MD LAB POCT ORDERABLES - DEVICE Final Result NAYANA [address] [address] Department of [employer] [place] [address] * eGFR (12/30/2024 7:02 AM BUSINESS SOLUTIONS CONSULTANT) eGFR 77 >=60 mL/min/1. 73 m2 Comment: [...] last reviewed 2021. Blood 12/30/2024 7:02 AM BUSINESS SOLUTIONS CONSULTANT 12/30/2024 7:30 AM BUSINESS SOLUTIONS CONSULTANT us Polly Null MD LAB BLOOD ORDERABLES Final Result NAYANA MASTERSON [address] [address] Department [place] [address] * Differential, auto (12/30/2024 7:02 AM BUSINESS SOLUTIONS CONSULTANT) Neutrophil abs 5.9 1.5 - 6.5 K/cumm Imm gran abs 0.0 0.0 - 0.1 K/cumm [facility] ALE[facility] Lymphocyte abs 2.4 0.8 - 3.3 K/cumm [facility] Monocyte abs 0.8 0.2 - 0.8 K/cumm [facility] Eosinophil abs 0.4 0.0 - 0.5 K/cumm [facility] Basophil abs 0.1 0.0 - 0.1 K/cumm [facility] Neutrophil pct 61.5 % [facility] Comment: Interpretive Data Percent cell count reference ranges are not reported, since discordance with absolute values may lead to misinterpretation of CBC data. Current Interpretive Data was last revised on 2018. Imm gran pct 0.3 % [facility] Comment: Interpretive Data Percent cell count reference ranges are not reported, since discordance with absolute values may lead to misinterpretation of CBC data. Current Interpretive Data was last revised on 2018. Lymphocyte pct 25.1 % [facility] Comment: Interpretive Data Percent cell count reference ranges are not reported, since discordance with absolute values may lead to misinterpretation of CBC data. Current Interpretive Data was last revised on 2018. Monocyte pct 8.4 % [facility] Comment: Interpretive Data Percent cell count reference ranges are not reported, since discordance with absolute values may lead to misinterpretation of CBC data. Current Interpretive Data was last revised on 2018. Eosinophil pct 4.2 % [facility] Comment: Interpretive Data Percent cell count reference ranges are not reported, since discordance with absolute values may lead to misinterpretation of CBC data. Current Interpretive Data was last revised on 2018. Basophil pct 0.5 % [facility] Comment: Interpretive Data Percent cell count reference ranges are not reported, since discordance with absolute values may lead to misinterpretation of CBC data. Current Interpretive Data was last revised on 2018. Blood 12/30/2024 7:02 AM BUSINESS SOLUTIONS CONSULTANT 12/30/2024 7:30 AM BUSINESS SOLUTIONS CONSULTANT us Polly Null MD LAB BLOOD ORDERABLES Final Result NAYANA [address]ST[id number] [address] Department [place] [address] * CBC with auto differential (12/30/2024 7:02 AM BUSINESS SOLUTIONS CONSULTANT) [facility] WBC 9.5 3.8 - 9.9 K/cumm Hgb 16.2 13.0 - 17.5 g/dL [facility] Hct 48.5 38.9 - 50.3 % [facility] Plt 296 150 - 400 K/cumm [facility] MPV 11.3 9.1 - 12.3 fL [facility] RBC 5.60 4.30 - 5.80 M/cumm [facility] MCV 86.6 81.3 - 96.4 fL [facility] MCH 28.9 27.1 - 33.3 pg [facility] MCHC 33.4 32.3 - 35.7 g/dL [facility] RDW CV 13.2 11.1 - 14.9 % [facility] RDW SD 41.4 35.7 - 48.1 fL [facility] NRBC abs 0.00 0.00 - 0.01 K/cumm [facility] Blood 12/30/2024 7:02 AM BUSINESS SOLUTIONS CONSULTANT 12/30/2024 7:30 AM BUSINESS SOLUTIONS CONSULTANT Narrative [facility] - 12/30/2024 7:52 AM BUSINESS SOLUTIONS CONSULTANT If most recent labs were drawn prior to 4 AM, draw only prior to initiating procedure. us Polly Null MD LAB BLOOD ORDERABLES Final Result [facility] [address] [address] Department [place] [address] * (ABNORMAL) Basic metabolic panel (12/30/2024 7:02 AM BUSINESS SOLUTIONS CONSULTANT) [facility] Sodium 137 135 - 145 mmol/L Potassium, pl 4.6 3.3 - 4.9 mmol/L [facility] Comment:Hemolysis present. R esults may be affected. Chloride 101 97 - 110 mmol/L [facility] CO2 21(L) 22 - 32 mmol/L [facility] Anion gap 15 2 - 15 mmol/L [facility] BUN 13 6 - 25 mg/dL [facility] Creatinine 1.14 0.80 - 1.30 mg/dL [facility] Glucose 124 70 - 199 mg/dL [facility] Comment: Interpretive Data Fasting glucose >/= [...] 2022. Calcium 9.2 8.5 - 10.3 mg/dL N[facility] Blood 12/30/2024 7:02 AM BUSINESS SOLUTIONS CONSULTANT 12/30/2024 7:30 AM BUSINESS SOLUTIONS CONSULTANT Polly Null MD LAB BLOOD ORDERABLES Final Result NAYANA [address] Department [place] [address] * XR Elbow Right 3 or More Views (12/21/2024 11:00 AM BUSINESS SOLUTIONS CONSULTANT) Anatomical Region Laterality Modality Upper Extremities, Elbow Right Digital Radiography Narrative 12/21/2024 11:50 AM BUSINESS SOLUTIONS CONSULTANT Three views right elbow shows [id number] degenerative changes throughout capitellum lines up with the radial head on all views no fractures Lance Zuniga MD IMG XR PROCEDURES Final Resu lt * POCT lipid panel (12/21/2024 9:40 AM BUSINESS SOLUTIONS CONSULTANT) Cholesterol, POC <100 mg/dL Comment:GLU = 165 HDL, POC 35 mg/dL Triglycerides, POC 114 mg/dL LDL Cholesterol POC 42 mg/dL Chol/HDL Ratio, POC N/A Non-HDL Cholesterol, POC N/A mg/dL Cholesterol Total, POC <100 mg/dL Capillary blood 12/21/2024 9 :40 AM BUSINESS SOLUTIONS CONSULTANT us Polly Null MD POINT OF CARE TEST O RDERABLES Final Result * EMG/NCV - (11/09/2024 9:30 AM BUSINESS SOLUTIONS CONSULTANT) Anatomical Region Laterality Modality EMG, EMG Impressions 11/09/2024 9:31 AM BUSINESS SOLUTIONS CONSULTANT History: This is a 54 years old [...] a test for HCV RNA (test code 12067) is suggested. For additional information please refer to http://education.PriceMatch/faq/KYX02q1 (This link is being provided for informational/ educational purposes only.) 07/21/2019 7:06 AM CDT 07/21/2019 7:11 AM CDT Narrative [facility] - 07/23/2019 4:34 PM CDT FASTING:YES FASTING: YES Resulting Agency Comment Performing Organization Information: ?Site ID: [id number] ?Name: Karol Damico-Nathaniel ?Address: [address] [facility] [address] ?Director: Orion Glynn D.O., MPH Az Allison MD LAB MICROBIOLOGY - GENERAL OR DERABLES Final Result [facility] from Last 3 Months or Most Recently Relevant to Health Maintenance Insurance [facility] WORKERS COMPENSATION GENERIC WORKERS COMPENSATION GENERIC Care Teams Farm Implement Mechanic Relationship Specialty Start Date End Date Hai Pradhan MD PCP - General Internal Medicine 09/20/22 Pascale Wolff MD Consulting Physician Sleep Medicine 12/06/19 Rudi Patel MD Resident Neurosurgery 06/08/21
[2024-12-30 19:07] LABS: Anion Gap 11 mmol/L (4-12); Blood Urea Nitrogen 14 mg/dL (9-20); Calcium 8.8 mg/dL (8.4-10.2); Carbon Dioxide 26 mmol/L (22-30); Chloride 102 mmol/L (98-107); Estimated Glomerular Filt Rate > 60; Glucose 113 mg/dL (65-110); Potassium 4.4 mmol/L (3.4-5.0); Sodium 139 mmol/L (137-145)
== END 2024-12-30 12:27 | disposition home or self-care (01) ==
LOC: ANHBWCLAB 12:26
PROVIDERS: PCP Internal Medicine; Visit Provider Anesthesiology
DX: E11.9 Type 2 diabetes mellitus without complications (principal)
CPT/HCPCS: 36415; 80048

== ENCOUNTER 2025-01-04 01:46 | Day surgery (SDC) | payer MEDICARE, OTHER, SELFPAY ==
[2024-12-23 14:16] VITALS: BMI 37.8
--- NOTE | 2024-12-23 14:25 | PC.NURSE ---
Report to the Outpatient Waiting Room, entrance under the green pavilion located off [facility], at time _1000_ on date _[id number]_. Planned Procedure Time: _1200_.? Time changes happen often and if your time is changed the preop area will call you the afternoon before. - You and your visitor will be asked to self-screen and do not enter if you have any COVID symptoms. Please call surgeon if you need to reschedule. - A mask is optional within the hospital at this time. - No food from midnight until time of surgery and no smoking. This includes no chewing gum, candy or mints. Take only the following medications with a SIP of water on the morning of surgery: __Duloloxetine DO NOT STOP ANY OF YOUR OTHER PRESCRIPTION MEDICATIONS PRIOR TO SURGERY EXCEPT THE FOLLOWING Medications to discontinue per physician ___None Date to take last dose Please no make-up, nail djiboutian, hairspray, perfume, deodorant, or body powder the day of surgery.? No jewelry (including any body piercings) or valuables the day of surgery, leave them at home.? Please take a shower or bath the night before, or the morning of, surgery with an antibacterial soap.? Wear comfortable, loose fitting clothing.? - Jewelry must be removed prior to entering the operating room.? Rings and piercings that are not removed may be cut off. - The hospital will not accept responsibility for valuables.? - Please leave all valuables, including medications, at home the day of surgery. If you are going home after surgery, a licensed water taxi driver must drive you home.? - NO public transportation without another adult if you receive anesthesia. - We recommend that an adult stay with you for 24 hours following discharge. - We also recommend that you do not drive, make important decision, drink alcoholic beverages, or take any drugs that were not prescribed by your health care provider for at least 24 hours after your discharge time. Hold all vitamins and supplements for 3 days per anesthesiologist. Follow any additional instructions given to you from your surgeon. Telephone instructions given to _Javier_and asked if any additional questions and then verbalized understanding. Patient advised to call surgeon office or pre surgery nurse liaison [phone] if any additional questions
[2025-01-04] VITALS (7 sets, daily range): BP systolic 118–160; BP diastolic 69–91; PULSE 45–57; RESP 12–18; TEMP 36.2; O2SAT 97–100
--- OUTSIDE RECORDS SUMMARY | 2025-01-04 01:51 | XMS_ITS | Continuity of Care Document ---
Author Organization [facility] Address [address] [place] [address] Phone Care Team Providers Care Hotel Operation Manager Name Role Phone Christen Sood PT Unavailable Unavailable Procedures Procedure Date FCE Each 15min FCE Each 15min Advance Directives Directive Yes / No Effective Date File Name No Information Encounters Encounter Description Practice Location Reason(s) For Visit Diagnoses Date Provider Providers Copied on Encounter [facility], [address], [id number], tel:[phone] Ariel No Information Barrie Velásquez. . Referring Provider: [address], [place], [address]. tel:[phone] [facility], [address] [place] [address], [place], [place], [id number], tel:[phone] Ariel No Information Gloria Dixon. [address] [place] [address], [address], . tel:[phone] Referring Provider: [address], [place], [address]. tel:[phone] Family History Family Member Type Diagnosis Age At Onset No Information Payers Payer name Insurance type Covered republican ID Authoriza mary kaymalorei(s) Rubén [id number] Social History Type Description Quantity Date Captured [...]
--- OUTSIDE RECORDS SUMMARY | 2025-01-04 01:51 | XMS_ITS | Clinical Summary ---
Author Organization [facility] [address] Address [address] [place] [address] Phone Care Team Providers Care Adult Day Care Worker Name Role Phone Pascale Wolff MD Unavailable Rudi Patel MD Unavailable Hai Pradhan MD Primary Care Provider [phone] Allergies Active Allergy Reactions Criticality Noted Date [...] of this month with Dr. Patel at [facility]. MRI of the lumbar spine was done at [facility], and we will get those images and report. However there has been no imaging of the C-spine. 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 Sensory exam in the arms and [...] 40. Assessment & Plan (01/27/2021 4:04 PM PLANT GUARD): He has started to work on his weight. His girlfriend who is a nurse is helping him. Hopefully this will get him on a trend downward instead of upward. Assessment & Plan (10/09/2020 10:37 AM PLANT GUARD): We recommended attention to his diet and [...] to get it down. 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 Continue efforts. Assessment & Plan (11/01/2018 1:36 PM PLANT GUARD): He has lost about 10 lb since [...] continued 6. 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 He gets a good night's sleep. Assessment & Plan (07/22/2020 3:16 PM CDT): He went on CPAP and it has been life changing. He sleeping well. Energy level is good. Verruca vulgaris 10/31/2019 Assessment & Plan (12/01/2019 3:55 PM PLANT GUARD): I will set the patient up for the removal of the last remaining skin lesions. Assessment & Plan (10/31/2019 10:41 AM PLANT GUARD): Pathology results returned as verruca vulgaris. We will plan for removal of another 20-30 in the setting. Given the shear number we may have to bring him back 1 further time to complete the last few remaining. He is in understanding. Steatohepatitis, non-alcoholic 07/26/2019 Assessment & Plan (01/27/2021 4:03 PM PLANT GUARD): He has had a mild elevation of liver enzymes. I recommended weight loss. We will monitor labs periodically. Assessment & Plan (10/03/2020 3:47 PM PLANT GUARD): His last set of labs did show [...] only scores 3 or 4 on the Tyler scale. However he seems to be at [...] 10/22/2018 Assessment & Plan (10/09/2020 10:37 AM PLANT GUARD): We went over his lipids for purposes [...] recheck. Assessment & Plan (10/03/2020 3:46 PM PLANT GUARD): He is here for biometric screening so [...] requested. Assessment & Plan (10/24/2018 3:21 PM PLANT GUARD): Blood pressure is in a good range [...] PATIENT. Assessment & Plan (01/27/2021 4:06 PM PLANT GUARD): He had mild coronary disease on cardiac [...] medicine. Assessment & Plan (10/24/2018 3:21 PM PLANT GUARD): He has no complaints of chest pain. [...] sugar. Assessment & Plan (10/03/2020 3:46 PM PLANT GUARD): We discussed the mild elevation of his blood sugar which might be pre diabetes. Weight loss would be helpful. Assessment & Plan (10/24/2018 3:22 PM PLANT GUARD): In the past, he has had some [...] COPD Assessment & Plan (01/27/2021 4:07 PM PLANT GUARD): He has mild to moderate symptoms. He has a rescue inhaler for use as needed. He has not been using his Symbicort because it is so expensive. He will call his insurance to see if alternatives are available. Assessment & Plan (10/09/2020 10:35 AM PLANT GUARD): He has chronic COPD from allergies. He [...] satisfactory. Assessment & Plan (10/24/2018 3:20 PM PLANT GUARD): He used to smoke cigarettes but quit many years ago. He does use a Symbicort inhaler and has a rescue inhaler as needed. Lungs are clear and oxygen saturations are normal. Continue same. Low back pain 08/25/2007 Overview (03/01/2017): Low back pain Assessment & Plan (10/21/2021 1:02 PM PLANT GUARD): Scanned office note, Dr. Patel, [facility]. [...] same. Assessment & Plan (10/24/2018 3:23 PM PLANT GUARD): He is on Cymbalta. His mood is [...] management. Assessment & Plan (12/05/2020 4:31 PM PLANT GUARD): Probable tendonitis. I advised that he try [...] Morse. Assessment & Plan (10/09/2020 10:36 AM PLANT GUARD): Since last , about five days ago, [...] Stephie. Assessment & Plan (11/13/2019 2:34 PM PLANT GUARD): Pt has improved over the past few [...] 10/31/2019 Assessment & Plan (10/16/2019 1:32 PM PLANT GUARD): We will set this patient up for excision under local anesthetic in the office. Given the shear number and sensitive nature of the area I have discussed that we may have to do this in 2 settings given the large number. He is in understanding. Assessment & Plan (10/11/2019 1:21 PM PLANT GUARD): Discussed the procedure of excision of the lesion and the patient expressed desire for removal of the inner thigh lesion and 3 on his back. Discussed wound care after procedure. Community acquired pneumonia of right lower lobe of lung 10/10/2019 11/28/2019 Overview (11/28/2019): See office note. Treated empirically. Assessment & Plan (10/24/2019 11:12 AM PLANT GUARD): He has had respiratory symptoms off and [...] Department Care Team Description 12/30/2024 8:30 AM PLANT GUARD - 12/30/2024 10:00 AM [facility] Surgery [facility] Cardiac Catheterization Lab [address] [place] [address] Polly Null MD LEFT HEART CATHETERIZATION WITH CORONARY ANGIOGRAPHY AND WITH OR WITHOUT LEFT VENTRICULOGRAM [id number] 12/30/2024 6:32 AM PLANT GUARD - 12/30/2024 11:50 AM PLANT GUARD Hospital Encounter [facility] Cardiac Catheterization Lab [address] [place] [address] Polly Null MD Abnormal cardiovascular stress test Discharge Disposition: Discharge to home or self care 12/23/2024 1:30 PM PLANT GUARD Office Visit [facility] [address] [place] [address] [address] [address] Enid Newsome NP ERICH (obstructive sleep apnea) (Primary Dx) 12/21/2024 11:15 AM PLANT GUARD Office Visit [facility] [address] [place] [address] [address] [place] [address] Lance Zuniga MD Cubital tunnel syndrome on right (Primary Dx); Right arm pain 12/21/2024 8:15 AM PLANT GUARD Office Visit [facility] [address] [facility] [address] [place] [address] Polly Null MD Primary hypertension (Primary Dx); Abnormal cardiovascular stress test; Mixed hyperlipidemia; ERICH (obstructive sleep apnea) 12/21/2024 7:43 AM PLANT GUARD - 12/21/2024 11:59 PM PLANT GUARD Hospital Encounter [facility] [address] [place] [address] [address] [place] [address] Discharge Disposition: Discharge to home or self care 12/21/2024 Telephone [facility] [address] [place] [address] [address] [place] [address] Lance Zuniga MD 12/21/[address] [place] [address] Polly Null MD 12/08/2024 Telephone [facility] [address] [facility] [address] [place] [address] Pascale Wolff MD 11/29/2024 Telephone [facility] [address] [facility] [address] [place] [address] Pascale Wolff MD 11/09/2024 8:10 AM PLANT GUARD - 11/09/2024 11:59 PM PLANT GUARD Hospital Encounter [facility] Neurological Disorders Testing [address] [place] [address] Numbness and tingling of right hand [R20.0, [...] Mild CAD, mildly diminished LVEF, Dr. Perry, [facility]. 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 Medical History Medical History Date Comments Chronic obstructive pulmonar y disease (HCC) 02/23/2010 COPD Hyperglycemia 08/25/2014 Elevated blood s ugar Morbid obesity (HCC) 08/25/2013 Obesity Steatosis of liver 10/05/2014 Hepatic steat osis Abnormal findings on cardiac catheterization 12/13/2014 Mild CAD, mildly decreased L V systolic function. See report, [facility], Dr. Perry. Acute bacterial sinusitis 10/13/2019 See of janee note. Non-recurrent acute suppurat cartina otitis media of right ear without spontaneous [...] file Legal Sex Male 9:12 AM PLANT GUARD Gender Identity Not on file Sexual Orientation Not on file Obstetrics History Last Filed Vital Signs Vital Sign Reading Time Taken Comments Blood Pressure 136/74 12/30/2024 11:20 AM PLANT GUARD Pulse 83 12/30/2024 11:25 AM PLANT GUARD Temperature 37 C (98.6 F) 12/30/2024 7:50 AM PLANT GUARD Respiratory Rate 18 08/30/2024 5:11 AM CDT Oxygen Saturation 96% 12/30/2024 11:25 AM PLANT GUARD Inhaled Oxygen Concentration - - Weight 106.1 kg (234 lb) 12/30/2024 7:50 AM PLANT GUARD Height 170.2 cm (5' 7 ) 12/30/2024 7:50 AM PLANT GUARD Body Mass Index 36.65 12/30/2024 7:50 AM PLANT GUARD Plan of Treatment Health Maintenance Due Date [...] Completed 07/21/2019 Medical Devices Implanted Type Area Special Education Curriculum Specialist Device Identifier Shelf Expiration Date Model / Serial / Lot Neurostimulator Neurostimulator Back [employer] [facility] Device Closure Vascade Od5 Fr Femoral Artery [id number] - [id number] Implanted:Qty: 1 on 12/30/2024 by Polly Null MD at [facility] [employer] [facility] 04/02/2026 [id number] / / [id number] Procedures Procedure Name Priority Date/Time Associated Diagnosis Comments POCT GLUCOSE DEVICE Routine 12/30/2024 9 :36 AM PLANT GUARD LEFT HEART CATHETERIZATION WITH CORONARY ANGIOGRAPHY AND WITH AND WITHOUT LEFT VENTRICULOGRAM Routine 12/30/2024 9:14 AM PLANT GUARD Abnormal cardiovascular stress test POCT GLUCOSE DEVICE Routine 12/30/2024 7 :07 AM PLANT GUARD EGFR STAT 12/30/2024 7:02 AM PLANT GUARD DIFFERENTIAL AUTO STAT 12/30/2024 7:0 2 AM PLANT GUARD CBC WITH AUTO DIFFERENTIAL STAT 12/30/2024 7:02 AM PLANT GUARD BASIC METABOLIC PANEL STAT 12/30/2024 7:02 AM PLANT GUARD XR ELBOW RIGHT 3 OR MORE VIEWS Schedule Routine, Read Routine (OP Routine) 12/21/2024 11:00 AM PLANT GUARD Right arm pain POCT LIPID PANEL Routine 12/21/2024 9:40 AM PLANT GUARD Mixed hyperlipidemia EMG/NCV Routine 11/09/2024 9:30 AM PLANT GUARD Cubital tunnel syndrome on right HEPATITIS C ANTIBODY Routine 07/21/2019 7:06 AM CDT from Last 3 Months or Most Recently Relevant to Health Maintenance Results * POCT glucose (12/30/2024 9:36 AM PLANT GUARD) Glucose, POC 113 70 - 199 mg/dL Blood 12/30/2024 9:36 AM PLANT GUARD 12/30/2024 9:36 AM PLANT GUARD us Polly Null MD LAB POCT ORDERABLES - DEVICE Final Result [facility] Department [place] [address] * LEFT HEART CATHETERIZATION WITH CORONARY ANGIOGRAPHY AND WITH AND WITHOUT LEFT VENTRICULOGRAM (12/30/2024 9:14 AM PLANT GUARD) Anatomical Region Laterality Modality X-Ray Angiograph y Narrative 12/30/2024 9:33 AM PLANT GUARD CARDIAC CATHETERIZATION REPORT Javier Sanchez IP ENCOUNTER: @LIZA@ Date of Procedure: 12/30/2024 BIRTHDATE: 1970 REAL PROPERTY APPRAISER: Polly Null MD PREPROCEDURE DIAGNOSES: This is 54-year-old patient with history of diabetes, morbid obesity, sleep apnea evaluate for dyspnea on exertion. Reported cardiac catheterization 2014 that showed nonobstructive CAD. Increasing dyspnea on exertion lately. We brought him in to define coronary anatomy. He did undergo stress testing that shows small area ischemia anteroseptum distally and fixed defect lateral wall. PROCEDURES PERFORMED: Moderate sedation that started at 8:37 a.m. and ended at 9:14 a.m. with total duration using 5mg of Versed and 125mcg of fentanyl. The registered nurse was rashawn urias Selective left and right coronary angiogram. Left heart catheterization with measurement of LVEDP and measure gradient across aortic valve. LV angiogram. Right common femoral arterial angiogram. Deployment 5 [place]an Vascade closure device. FINDINGS: Left main without significant disease. Left anterior descending artery has a lesion in the mid segment about 40% and distally 40%. Gives rise to medium diagonal branch with minimal irregularities. Left circumflex artery is large and codominant. Minimal irregularities. Distally gives rise to large OM1 with minimal irregularities. Right coronary artery is medium to large with minimal irregularities. LVEDP was 5 mm Hg and no gradient across aortic valve. Opening arterial pressure 120/102 on closing pressure 82/64. LV angiogram shows normal ejection fraction and no wall motion abnormalities. Ascending aorta seems to be normal in caliber.. Right common femoral arterial angiogram shows no significant disease in the right common femoral artery. COMPLICATIONS: None ESTIMATED BLOOD LOSS: 5 mL PROCEDURAL DESCRIPTION: After informed consent patient was brought into the high density press laborer where she was draped and prepped in the usual manner. Moderate sedation was given and the right groin infiltrated using 1% lidocaine. Five [place] Leonean sheath was obtained using micropuncture needle and modified Seldinger technique. Selective left coronary angiogram was done using JL4 catheter with the tip of the catheter placed in the left main coronary artery. Selective right coronary angiogram was done using JR4 catheter with the tip of the catheter placed in the right coronary artery. After that 5 [place]an pigtail catheter was advanced across aortic valve into the left ventricular with measurement of LVEDP and measure gradient across aortic valve. Right common femoral arterial angiogram was done and deployed 5 [place] Vascade closure device. Access site: Right common femoral artery. Hemostasis: 5 [place] Vascade closure device. CONCLUSIONS Nonobstructive CAD. PLAN Risk factor modification for CAD. Polly Null MD CV CARDIAC CATH PROC EDURES Final Result * POCT glucose (12/30/2024 7:07 AM PLANT GUARD) Glucose, POC 107 70 - 199 mg/dL Blood 12/30/2024 7:07 AM PLANT GUARD 12/30/2024 7:07 AM PLANT GUARD Polly Null MD LAB POCT ORDERABLES - DEVICE Final Result [facility] [address] Department [place] [address] * eGFR (12/30/2024 7:02 AM PLANT GUARD) eGFR 77 >=60 mL/min/1. 73 m2 Comment: Interpretive Data Reference Interval Normal >/= 90 mL/min/1.73m2 Mildly decreased* 60 - 89 mL/min/1.73m2 Mildly to moderately decreased 45 - 59 mL/min/1.73m2 Moderately to severely decreased 30 - 44 mL/min/1.73m2 Severely decreased 15 - 29 mL/min/1.73m2 Kidney Failure < 15 mL/min/1.73m2 *Relative to young adult level Estimated glomerular [...] last reviewed 2021. Blood 12/30/2024 7:02 AM PLANT GUARD 12/30/2024 7:30 AM PLANT GUARD us Polly Null MD LAB BLOOD ORDERABLES Final Result [facility] [address] Department [place] [address] * Differential, auto (12/30/2024 7:02 AM PLANT GUARD) Neutrophil abs 5.9 1.5 - 6.5 K/cumm Imm gran abs 0.0 0.0 - 0.1 K/cumm [facility] Lymphocyte abs 2.4 0.8 - 3.3 K/cumm [facility] Monocyte abs 0.8 0.2 - 0.8 K/cumm [facility] Eosinophil abs 0.4 0.0 - 0.5 K/cumm [facility] Basophil abs 0.1 0.0 - 0.1 K/cumm [facility] Neutrophil pct 61.5 % [facility] Comment: Interpretive Data Percent cell count reference ranges are not reported, since discordance with absolute values may lead to misinterpretation of CBC data. Current Interpretive Data was last revised on 2018. Imm gran pct 0.3 % [facility] Comment: Interpretive Data Percent cell count reference ranges are not reported, since discordance with absolute values may lead to misinterpretation of CBC data. Current Interpretive Data was last revised on 2018. Lymphocyte pct 25.1 % [facility] Comment: Interpretive Data Percent cell count reference ranges are not reported, since discordance with absolute values may lead to misinterpretation of CBC data. Current Interpretive Data was last revised on 2018. Monocyte pct 8.4 % [facility] Comment: Interpretive Data Percent cell count reference ranges are not reported, since discordance with absolute values may lead to misinterpretation of CBC data. Current Interpretive Data was last revised on 2018. Eosinophil pct 4.2 % [facility] Comment: Interpretive Data Percent cell count reference ranges are not reported, since discordance with absolute values may lead to misinterpretation of CBC data. Current Interpretive Data was last revised on 2018. Basophil pct 0.5 % [facility] Comment: Interpretive Data Percent cell count reference ranges are not reported, since discordance with absolute values may lead to misinterpretation of CBC data. Current Interpretive Data was last revised on 2018. Blood 12/30/2024 7:02 AM PLANT GUARD 12/30/2024 7:30 AM PLANT GUARD Polly Null MD LAB BLOOD ORDERABLES Final Result [facility] [address] [place] [address] * CBC with auto differential (12/30/2024 7:02 AM PLANT GUARD) WBC 9.5 3.8 - 9.9 K/cumm Hgb 16.2 13.0 - 17.5 g/dL [facility] Hct 48.5 38.9 - 50.3 % [facility] Plt 296 150 - 400 K/cumm [facility] MPV 11.3 9.1 - 12.3 fL [facility] RBC 5.60 4.30 - 5.80 M/cumm [facility] MCV 86.6 81.3 - 96.4 fL [facility] MCH 28.9 27.1 - 33.3 pg [facility] MCHC 33.4 32.3 - 35.7 g/dL [facility] RDW CV 13.2 11.1 - 14.9 % [facility] RDW SD 41.4 35.7 - 48.1 fL [facility] NRBC abs 0.00 0.00 - 0.01 K/cumm [facility] Blood 12/30/2024 7:02 AM PLANT GUARD 12/30/2024 7:30 AM PLANT GUARD Narrative [facility] - 12/30/2024 7:52 AM PLANT GUARD If most recent labs were drawn prior to 4 AM, draw only prior to initiating procedure. Polly Null MD LAB BLOOD ORDERABLES Final Result Performing Organization Address City/[facility]/ZIP Co de Phone Number [facility] MASTERSON [address] [place] [address] * (ABNORMAL) Basic metabolic panel (12/30/2024 7:02 AM PLANT GUARD) Sodium 137 135 - 145 mmol/L Potassium, pl 4.6 3.3 - 4.9 mmol/L [facility] Comment:Hemolysis present. R esults may be affected. Chloride 101 97 - 110 mmol/L [facility] CO2 21(L) 22 - 32 mmol/L [facility] Anion gap 15 2 - 15 mmol/L [facility] BUN 13 6 - 25 mg/dL [facility] Creatinine 1.14 0.80 - 1.30 mg/dL [facility] Glucose 124 70 - 199 mg/dL [facility] Comment: Interpretive Data Fasting glucose >/= 126 mg/dl is diagnostic for diabetes. Fasting is defined as no caloric intake [...] 2022. Calcium 9.2 8.5 - 10.3 mg/dL [facility] Blood 12/30/2024 7:02 AM PLANT GUARD 12/30/2024 7:30 AM PLANT GUARD Polly Null MD LAB BLOOD ORDERABLES Final Result [facility] [address] Department [place] [address] * XR Elbow Right 3 or More Views (12/21/2024 11:00 AM PLANT GUARD) Anatomical Region Laterality Modality Upper Extremities, Elbow Right Digital Radiography Narrative 12/21/2024 11:50 AM PLANT GUARD Three views right elbow shows pjir-dr-hadfystn degenerative changes throughout capitellum lines up with the radial head on all views no fractures Lance Zuniga MD IMG XR PROCEDURES Final Resu lt * POCT lipid panel (12/21/2024 9:40 AM PLANT GUARD) Cholesterol, POC <100 mg/dL Comment:GLU = 165 HDL, POC 35 mg/dL Triglycerides, POC 114 mg/dL LDL Cholesterol POC 42 mg/dL Chol/HDL Ratio, POC N/A Non-HDL Cholesterol, POC N/A mg/dL Cholesterol Total, POC <100 mg/dL Capillary blood 12/21/2024 9 :40 AM PLANT GUARD Polly Null MD POINT OF CARE TEST O RDERABLES Final Result * EMG/NCV - (11/09/2024 9:30 AM PLANT GUARD) Anatomical Region Laterality Modality EMG, EMG Impressions 11/09/2024 9:31 AM PLANT GUARD History: This is a 54 years old [...] amplitudes and normal sensory nerve conduction velocities. Right median and right radial SNAP peak latency comparison study using ring electrodes showed SNAP peak latency 1.7 ms for right radial nerve and 3.4 ms for right median nerve. EMG studies: The concentric needle electrode examination was performed on right FDI, APB, flexor carpi radialis, biceps and deltoid. There was no evidence of [...] ongoing denervation. The clinical correlation is recommended. Hai Pradhan MD NEUROLOGY ORDERABLES Final Resu [...] a test for HCV RNA (test code 80023) is suggested. For additional information please refer to http://education.[employer]/faq/AQL34d7 (This link is being provided for informational/ educational purposes only.) 07/21/2019 7:06 AM CDT 07/21/2019 7:11 AM CDT Narrative [facility] - 07/23/2019 4:34 PM CDT FASTING:YES FASTING: YES Resulting Agency Comment Performing Organization Information: Site ID: [id number] Name: Karol Louis Address: [id number] [place] [address] [facility] [address] Director: Orion Glynn D.O. MPH Az Allison MD LAB MICROBIOLOGY - GENERAL OR DERABLES Final Result [facility] from Last 3 Months or Most Recently Relevant to Health Maintenance Insurance [facility] WORKERS COMPENSATION GENERIC WORKERS COMPENSATION GENERIC Care Teams Adult Day Care Worker Relationship Specialty Start Date End Date Hai Pradhan MD PCP - General Internal Medicine 09/20/22 Pascale Wolff MD Consulting Physician Sleep Medicine 12/06/19 Rudi Patel MD Resident Neurosurgery 06/08/21
--- OUTSIDE RECORDS SUMMARY | 2025-01-04 01:51 | XMS_ITS | Clinical Summary ---
Author Organization [facility] Address [address] [place] [address] Phone Care Team Providers Care Multi Slide Machine Tender Name Role Phone Hai Pradhan MD Primary Care Provider [phone] Allergies Active Allergy Reactions Criticality Noted Date [...] 62 02/21/2023 10:45 AM CDT Temperature 37 C (98.6 F) 02/21/2023 10:45 AM CDT Respiratory Rate 15 [...] patient's age to complete this topic Insurance [facility] GENERIC 15 FLOOR [facility] [id number] [id number] Care Teams Multi Slide Machine Tender Relationship Specialty Start Date End Date Hai Pradhan MD [address] [place] [address] PCP - General Internal Medicine 02/18/23
--- OUTSIDE RECORDS SUMMARY | 2025-01-04 01:51 | XMS_ITS | Data Portability ---
Author Organization [facility] Address [address] [place] [address] Assessment No assessment recorded. Plan of Treatment [...] SNOMED-CT Code Diagnosis ICD10 Code Diagnosis Note [id number] DENEEN Guerra 14 IM 4 [facility] JAI Mata [address] 03/24/2021 15:02:45 03/24/2021 16:17:15 Administration of SARS-CoV-2 antigen vaccine [id number] Z23 [id number] DENEEN Guerra 14 IM [address] [facility] [place] [address] 04/21/2021 14:46:55 04/21/2021 15:46:03 Administration of SARS-CoV-2 antigen vaccine [id number] Z23 Health Concerns Section Related Observation LastModified by Organization Detai ls LastModified Time None Recorded Concern Status LastModified by Organization Details LastModified Time None Recorded Advance Directives Directive None Recorded Payers Encounter Date Sequence Insurance Name Policy Number Policy Clement Covered Member ID Clement Member ID Guarantor Name 03/24/2021 Avacen Javier Sanchez [id number] Javier Sanchez 04/21/2021 Avacen Javier Sanchez [id number] Javier Sanchez
--- OUTSIDE RECORDS SUMMARY | 2025-01-04 01:51 | XMS_ITS | Referral Summary ---
Author Organization [facility] [address] Address [address] [email or web address] [address] Phone Care Team Providers [employer] Registrar Name Role Phone Pascale Wolff MD Unavailable Rudi Patel MD Unavailable [phone] Hai Pradhan MD Primary Care Provider [phone] Encounters Date Type Department Care Team Description 12/30/2024 8:30 AM DISTRICT SALES MANAGER - 12/30/2024 10:00 AM [facility] Surgery [facility]atheter[facility] [address] [place] [address] Polly Null MD LEFT HEART CATHETERIZATION WITH CORONARY ANGIOGRAPHY AND WITH OR WITHOUT LEFT VENTRICULOGRAM [id number] 12/30/2024 6:32 AM DISTRICT SALES MANAGER - 12/30/2024 11:50 AM [facility] Hospital Encounter [facility] [address] [place] [address] Polly Null MD Abnormal cardiovascular stress test Discharge Disposition: Discharge to home or self care 12/23/2024 1:30 PM DISTRICT SALES MANAGER Office Visit [facility] [address] [facility] [address] [place] [address] Enid Newsome NP ERICH (obstructive sleep apnea) (Primary Dx) 12/21/2024 Telephone [facility] [address] [facility] [address] [place] [address] Lance Zuniga MD 12/21/2024 Telephone [facility] [address] [place] [address] Polly Null MD 12/21/2024 7:43 AM DISTRICT SALES MANAGER - 12/21/2024 11:59 PM DISTRICT SALES MANAGER Hospital Encounter [facility] [address] [facility] [address] [place] [address] Discharge Disposition: Discharge to home or self care 12/21/2024 11:15 AM DISTRICT SALES MANAGER Office Visit [facility] [address] [facility] [address] [place] [address] Lance Zuniga MD Cubital tunnel syndrome on right (Primary Dx); Right arm pain 12/21/2024 8:15 AM DISTRICT SALES MANAGER Office Visit [facility] [address] [place] [address] Polly Null MD Primary hypertension (Primary Dx); Abnormal cardiovascular stress test; Mixed hyperlipidemia; ERICH (obstructive sleep apnea) 12/08/2024 Telephone [facility] [address] [facility] [address] [place] [address] Pascale Wolff MD 11/29/2024 Telephone [facility] [address] [facility] [address] [place] [address] Pascale Wolff MD 11/09/2024 8:10 AM DISTRICT SALES MANAGER - 11/09/2024 11:59 PM DISTRICT SALES MANAGER Hospital Encounter [facility] Neurological Disorders Testing [address] [place] [address] Numbness and tingling of right hand [R20.0, [...] of this month with Dr. Patel at [facility]. MRI of the lumbar spine was done at [facility], and we will get those images and report. However there has been no imaging of the C-spine. 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 Sensory exam in the arms and [...] 40. Assessment & Plan (01/27/2021 4:04 PM DISTRICT SALES MANAGER): He has started to work on his weight. His girlfriend who is a nurse is helping him. Hopefully this will get him on a trend downward instead of upward. Assessment & Plan (10/09/2020 10:37 AM DISTRICT SALES MANAGER): We recommended attention to his diet and [...] to get it down. 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 Continue efforts. Assessment & Plan (11/01/2018 1:36 PM DISTRICT SALES MANAGER): He has lost about 10 lb since [...] continued 6. Avoid alcohol sedatives and other COMMUNITY THEATER ACTOR depression that may worsen sleep apnea and disrupt normal sleep architecture Assessment & Plan (01/27/2021 4:03 PM DISTRICT SALES MANAGER): He continues on CPAP. He gets a good night's sleep. Assessment & Plan (07/22/2020 3:16 PM CDT): He went on CPAP and it has been life changing. He sleeping well. Energy level is good. Verruca vulgaris 10/31/2019 Assessment & Plan (12/01/2019 3:55 PM DISTRICT SALES MANAGER): I will set the patient up for the removal of the last remaining skin lesions. Assessment & Plan (10/31/2019 10:41 AM DISTRICT SALES MANAGER): Pathology results returned as verruca vulgaris. We will plan for removal of another 20-30 in the setting. Given the shear number we may have to bring him back 1 further time to complete the last few remaining. He is in understanding. Steatohepatitis, non-alcoholic 07/26/2019 Assessment & Plan (01/27/2021 4:03 PM DISTRICT SALES MANAGER): He has had a mild elevation of liver enzymes. I recommended weight loss. We will monitor labs periodically. Assessment & Plan (10/03/2020 3:47 PM DISTRICT SALES MANAGER): His last set of labs did show [...] only scores 3 or 4 on the [place] scale. However he seems to be at risk for sleep apnea. He is quite obese. He has a Mallampati class 2-3 exam. His friends tell salomonne that he snores. We will request a [...] 10/22/2018 Assessment & Plan (10/09/2020 10:37 AM DISTRICT SALES MANAGER): We went over his lipids for purposes [...] recheck. Assessment & Plan (10/03/2020 3:46 PM DISTRICT SALES MANAGER): He is here for biometric screening so [...] requested. Assessment & Plan (10/24/2018 3:21 PM DISTRICT SALES MANAGER): Blood pressure is in a good range [...] PATIENT. Assessment & Plan (01/27/2021 4:06 PM DISTRICT SALES MANAGER): He had mild coronary disease on cardiac [...] medicine. Assessment & Plan (10/24/2018 3:21 PM DISTRICT SALES MANAGER): He has no complaints of chest pain. [...] sugar. Assessment & Plan (10/03/2020 3:46 PM DISTRICT SALES MANAGER): We discussed the mild elevation of his blood sugar which might be pre diabetes. Weight loss would be helpful. Assessment & Plan (10/24/2018 3:22 PM DISTRICT SALES MANAGER): In the past, he has had some [...] COPD Assessment & Plan (01/27/2021 4:07 PM DISTRICT SALES MANAGER): He has mild to moderate symptoms. He has a rescue inhaler for use as needed. He has not been using his Symbicort because it is so expensive. He will call his insurance to see if alternatives are available. 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 He [...] satisfactory. Assessment & Plan (10/24/2018 3:20 PM DISTRICT SALES MANAGER): He used to smoke cigarettes but quit many years ago. He does use a Symbicort inhaler and has a rescue inhaler as needed. Lungs are clear and oxygen saturations are normal. Continue same. Low back pain 08/25/2007 Overview (03/01/2017): Low back pain Assessment & Plan (10/21/2021 1:02 PM DISTRICT SALES MANAGER): Scanned office note, Dr. Patel, [facility]. [...] same. Assessment & Plan (10/24/2018 3:23 PM DISTRICT SALES MANAGER): He is on Cymbalta. His mood is [...] management. Assessment & Plan (12/05/2020 4:31 PM DISTRICT SALES MANAGER): Probable tendonitis. I advised that he try [...] Mini. Assessment & Plan (10/09/2020 10:36 AM DISTRICT SALES MANAGER): Since last , about five days ago, [...] noteStephie. Assessment & Plan (11/13/2019 2:34 PM DISTRICT SALES MANAGER): Pt has improved over the past few [...] 10/31/2019 Assessment & Plan (10/16/2019 1:32 PM DISTRICT SALES MANAGER): We will set this patient up for excision under local anesthetic in the office. Given the shear number and sensitive nature of the area I have discussed that we may have to do this in 2 settings given the large number. He is in understanding. Assessment & Plan (10/11/2019 1:21 PM DISTRICT SALES MANAGER): Discussed the procedure of excision of the lesion and the patient expressed desire for removal of the inner thigh lesion and 3 on his back. Discussed wound care after procedure. Community acquired pneumonia of right lower lobe of lung 10/10/2019 11/28/2019 Overview (11/28/2019): See office note. Treated empirically. Assessment & Plan (10/24/2019 11:12 AM DISTRICT SALES MANAGER): He has had respiratory symptoms off and [...] file Legal Sex Male 9:12 AM DISTRICT SALES MANAGER Gender Identity Not on file Sexual Orientation Not on file Last Filed Vital Signs Vital Sign Reading Time Taken Comments Blood Pressure 136/74 12/30/2024 11:20 AM DISTRICT SALES MANAGER Pulse 83 12/30/2024 11:25 AM DISTRICT SALES MANAGER Temperature 37 C (98.6 F) 12/30/2024 7:50 AM DISTRICT SALES MANAGER Respiratory Rate 18 08/30/2024 5:11 AM CDT Oxygen Saturation 96% 12/30/2024 11:25 AM DISTRICT SALES MANAGER Inhaled Oxygen Concentration - - Weight 106.1 kg (234 lb) 12/30/2024 7:50 AM DISTRICT SALES MANAGER Height 170.2 cm (5' 7 ) 12/30/2024 7:50 AM DISTRICT SALES MANAGER Body Mass Index 36.65 12/30/2024 7:50 AM DISTRICT SALES MANAGER Plan of Treatment Not on file Medical Devices Implanted Type Area Experimental Physicist Device Identifier Shelf Expiration Date Model / Serial / Lot Neurostimulator Neurostimulator Back Vindicia Device Closure Vascade Od5 Fr Femoral Artery [id number] - [id number] Implanted:Qty: 1 on 12/30/2024 by Polly Null MD at [facility] [employer] 04/02/2026 [id number] / / [id number] Procedures Procedure Name Priority Date/Time Associated Diagnosis Comments POCT GLUCOSE DEVICE Routine 12/30/2024 9 :36 AM DISTRICT SALES MANAGER LEFT HEART CATHETERIZATION WITH CORONARY ANGIOGRAPHY AND WITH AND WITHOUT LEFT VENTRICULOGRAM Routine 12/30/2024 9:14 AM DISTRICT SALES MANAGER Abnormal cardiovascular stress test POCT GLUCOSE DEVICE Routine 12/30/2024 7 :07 AM DISTRICT SALES MANAGER EGFR STAT 12/30/2024 7:02 AM DISTRICT SALES MANAGER DIFFERENTIAL AUTO STAT 12/30/2024 7:0 2 AM DISTRICT SALES MANAGER CBC WITH AUTO DIFFERENTIAL STAT 12/30/2024 7:02 AM DISTRICT SALES MANAGER BASIC METABOLIC PANEL STAT 12/30/2024 7:02 AM DISTRICT SALES MANAGER XR ELBOW RIGHT 3 OR MORE VIEWS Schedule Routine, Read Routine (OP Routine) 12/21/2024 11:00 AM DISTRICT SALES MANAGER Right arm pain POCT LIPID PANEL Routine 12/21/2024 9:40 AM DISTRICT SALES MANAGER Mixed hyperlipidemia EMG/NCV Routine 11/09/2024 9:30 AM DISTRICT SALES MANAGER Cubital tunnel syndrome on right HEPATITIS C ANTIBODY Routine 07/21/2019 7:06 AM CDT from Last 3 Months or Most Recently Relevant to Health Maintenance Results * POCT glucose (12/30/2024 9:36 AM DISTRICT SALES MANAGER) Glucose, POC 113 70 - 199 mg/dL Blood 12/30/2024 9:36 AM DISTRICT SALES MANAGER 12/30/2024 9:36 AM DISTRICT SALES MANAGER us Polly Null MD LAB POCT ORDERABLES - DEVICE Final Result [facility] [address] Department [place] [address] * LEFT HEART CATHETERIZATION WITH CORONARY ANGIOGRAPHY AND WITH AND WITHOUT LEFT VENTRICULOGRAM (12/30/2024 9:14 AM DISTRICT SALES MANAGER) Anatomical Region Laterality Modality X-Ray Angiograph y Narrative 12/30/2024 9:33 AM DISTRICT SALES MANAGER CARDIAC CATHETERIZATION REPORT Javier Sanchez IP ENCOUNTER: @CSN@ Date of Procedure: 12/30/2024 BIRTHDATE: 1970 THERAPEUTIC SUPPORT STAFF: Polly Null MD PREPROCEDURE DIAGNOSES: This is [...] Right common femoral arterial angiogram. Deployment 5 Liberian Vascade closure device. FINDINGS: Left main without [...] informed consent patient was brought into the analyst microbiology lab where she was draped and prepped in the usual manner. Moderate sedation was given and the right groin infiltrated using 1% lidocaine. Five Liberian sheath was obtained using micropuncture needle and modified Seldinger technique. Selective left coronary angiogram was done using JL4 catheter with the tip of the catheter placed in the left main coronary artery. Selective right coronary angiogram was done using JR4 catheter with the tip of the catheter placed in the right coronary artery. After that 5 Liberian pigtail catheter was advanced across aortic valve into the left ventricular with measurement of LVEDP and measure gradient across aortic valve. Right common femoral arterial angiogram was done and deployed 5 Liberian Vascade closure device. Access site: Right common femoral artery. Hemostasis: 5 Liberian Vascade closure device. CONCLUSIONS Nonobstructive CAD. PLAN Risk factor modification for CAD. Polly Null MD CV CARDIAC CATH PROC EDURES Final Result * POCT glucose (12/30/2024 7:07 AM DISTRICT SALES MANAGER) [facility] Glucose, POC 107 70 - 199 mg/dL Blood 12/30/2024 7:07 AM DISTRICT SALES MANAGER 12/30/2024 7:07 AM DISTRICT SALES MANAGER Polly Null MD LAB POCT ORDERABLES - DEVICE Final Result [facility] [address] [place] [address] * eGFR (12/30/2024 7:02 AM DISTRICT SALES MANAGER) [facility] eGFR 77 >=60 mL/min/1. 73 m2 Comment: [...] last reviewed 2021. Blood 12/30/2024 7:02 AM DISTRICT SALES MANAGER 12/30/2024 7:30 AM DISTRICT SALES MANAGER us Polly Null MD LAB BLOOD ORDERABLES Final Result [facility] [address] Department of Laboratories [place], [place] [id number] * Differential, auto (12/30/2024 7:02 AM DISTRICT SALES MANAGER) Neutrophil abs 5.9 1.5 - 6.5 K/cumm Imm gran abs 0.0 0.0 - 0.1 K/cumm [facility] Lymphocyte abs 2.4 0.8 - 3.3 K/cumm [facility] Monocyte abs 0.8 0.2 - 0.8 K/cumm [facility] Eosinophil abs 0.4 0.0 - 0.5 K/cumm [facility] Basophil abs 0.1 0.0 - 0.1 K/cumm [facility] Neutrophil pct 61.5 % [facility] Comment: Interpretive Data Percent cell count reference ranges are not reported, since discordance with absolute values may lead to misinterpretation of CBC data. Current Interpretive Data was last revised on 2018. Imm gran pct 0.3 % [facility] Comment: Interpretive Data Percent cell count reference ranges are not reported, since discordance with absolute values may lead to misinterpretation of CBC data. Current Interpretive Data was last revised on 2018. Lymphocyte pct 25.1 % [facility] Comment: Interpretive Data Percent cell count reference ranges are not reported, since discordance with absolute values may lead to misinterpretation of CBC data. Current Interpretive Data was last revised on 2018. Monocyte pct 8.4 % [facility] Comment: Interpretive Data Percent cell count reference ranges are not reported, since discordance with absolute values may lead to misinterpretation of CBC data. Current Interpretive Data was last revised on 2018. Eosinophil pct 4.2 % [facility] Comment: Interpretive Data Percent cell count reference ranges are not reported, since discordance with absolute values may lead to misinterpretation of CBC data. Current Interpretive Data was last revised on 2018. Basophil pct 0.5 % [facility] Comment: Interpretive Data Percent cell count reference ranges are not reported, since discordance with absolute values may lead to misinterpretation of CBC data. Current Interpretive Data was last revised on 2018. Blood 12/30/2024 7:02 AM DISTRICT SALES MANAGER 12/30/2024 7:30 AM DISTRICT SALES MANAGER us Polly Null MD LAB BLOOD ORDERABLES Final Result [facility] [address] Department [place] [address] * CBC with auto differential (12/30/2024 7:02 AM DISTRICT SALES MANAGER) WBC 9.5 3.8 - 9.9 K/cumm Hgb 16.2 13.0 - 17.5 g/dL [facility] Hct 48.5 38.9 - 50.3 % [facility] Plt 296 150 - 400 K/cumm [facility] MPV 11.3 9.1 - 12.3 fL [facility] RBC 5.60 4.30 - 5.80 M/cumm [facility] MCV 86.6 81.3 - 96.4 fL [facility] MCH 28.9 27.1 - 33.3 pg [facility] MCHC 33.4 32.3 - 35.7 g/dL [facility] CV 13.2 11.1 - 14.9 % [facility] RDW SD 41.4 35.7 - 48.1 fL [facility] NRBC abs 0.00 0.00 - 0.01 K/cumm [facility] Blood 12/30/2024 7:02 AM DISTRICT SALES MANAGER 12/30/2024 7:30 AM DISTRICT SALES MANAGER Narrative [facility] - 12/30/2024 7:52 AM DISTRICT SALES MANAGER If most recent labs were drawn prior to 4 AM, draw only prior to initiating procedure. us Polly Null MD LAB BLOOD ORDERABLES Final Result [facility] [address] Department [place] [address] * (ABNORMAL) Basic metabolic panel (12/30/2024 7:02 AM DISTRICT SALES MANAGER) Sodium 137 135 - 145 mmol/L Potassium, pl 4.6 3.3 - 4.9 mmol/L [facility] Comment:Hemolysis present. R esults may be affected. Chloride 101 97 - 110 mmol/L [facility] CO2 21(L) 22 - 32 mmol/L [facility] Anion gap 15 2 - 15 mmol/L [facility] BUN 13 6 - 25 mg/dL [facility] Creatinine 1.14 0.80 - 1.30 mg/dL [facility] Glucose 124 70 - 199 mg/dL [facility] Comment: Interpretive Data Fasting glucose >/= [...] 2022. Calcium 9.2 8.5 - 10.3 mg/dL [facility] Blood 12/30/2024 7:02 AM DISTRICT SALES MANAGER 12/30/2024 7:30 AM DISTRICT SALES MANAGER Polly Null MD LAB BLOOD ORDERABLES Final Result [facility] [address] Department [place] [address] * XR Elbow Right 3 or More Views (12/21/2024 11:00 AM DISTRICT SALES MANAGER) Anatomical Region Laterality Modality Upper Extremities, Elbow Right Digital Radiography Narrative 12/21/2024 11:50 AM DISTRICT SALES MANAGER Three views right elbow shows [id number]-[id number] degenerative changes throughout capitellum lines up with the radial head on all views no fractures Lance Zuniga MD IMG XR PROCEDURES Final Resu lt * POCT lipid panel (12/21/2024 9:40 AM DISTRICT SALES MANAGER) Cholesterol, POC <100 mg/dL Comment:GLU = 165 HDL, POC 35 mg/dL Triglycerides, POC 114 mg/dL LDL Cholesterol POC 42 mg/dL Chol/HDL Ratio, POC N/A Non-HDL Cholesterol, POC N/A mg/dL Cholesterol Total, POC <100 mg/dL Capillary blood 12/21/2024 9 :40 AM DISTRICT SALES MANAGER Polly Null MD POINT OF CARE TEST O RDERABLES Final Result * EMG/NCV - (11/09/2024 9:30 AM DISTRICT SALES MANAGER) Anatomical Region Laterality Modality EMG, EMG Impressions 11/09/2024 9:31 AM DISTRICT SALES MANAGER History: This is a 54 years old [...] a test for HCV RNA (test code 44645) is suggested. For additional information please refer to http://education.[employer]/faq/VYO31t3 (This link is being provided for informational/ educational purposes only.) 07/21/2019 7:06 AM CDT 07/21/2019 7:11 AM CDT Narrative [facility] - 07/23/2019 4:34 PM CDT FASTING:YES FASTING: YES Resulting Agency Comment Performing Organization Information: Site ID: [place] Name: [facility] Address: [address] [address] Director: Orion Glynn D.O., MPH us Az Allison MD LAB MICROBIOLOGY - GENERAL OR DERABLES Final Result [facility] from Last 3 Months or Most Recently Relevant to Health Maintenance Insurance [facility] WORKERS COMPENSATION GENERIC WORKERS COMPENSATION GENERIC Care Teams [employer] Registrar Relationship Specialty Start Date End Date Hai Pardhan MD PCP - General Internal Medicine 09/20/22 Pascale Wolff MD Consulting Physician Sleep Medicine 12/06/19 Rudi Patel MD Resident Neurosurgery 06/08/21
--- OUTSIDE RECORDS SUMMARY | 2025-01-04 01:52 | XMS_ITS | Patient Health Record ---
Author Organization [facility] [place] Address [address] [address] Care Team Providers Care Power Shovel Mechanic Name Role Phone Brian Chen [phone] ALLERGIES Allergen (clinical drug ingredient) Drug/Non Drug [...] syndrome (M96.1) Active confirmed Failed back syndrome (97876255) Problem Bilateral sacroiliitis (M46.1) Active confirmed Bilateral sacroiliitis (3834421772) Problem History of lumbar fusion (Z98.1) Active confirmed History of lumbar fusion (02058398826891) PLAN OF TREATMENT No Information MEDICATIONS ADMINISTERED Medication Instructions Date of Administration Dosage Notes Bilateral Sacroiliac Joint Injection 04/29/2023 MEDICAL (GENERAL) HISTORY Medical History History ICD Code high blood pressure headaches nerve damage
--- OUTSIDE RECORDS SUMMARY | 2025-01-04 01:52 | XMS_ITS ---
Author Organization [facility] [place] Address [address] [address] Care Team Providers Care Hook And Eye Attacher Name Role Phone Gustavo Brian Carmine [phone] Encounters Encounter Location Date Provider Diagnosis [facility] [address] [place] [address] 08/02/2023 Brian Chen PLAN OF TREATMENT No Information Progress Notes * Javier SANCHEZ:1970 (52 yo M)Acc No.[id number]:08/02/2023 Patient: Javier Sanchez :1970 Age:52 Y Sex:Male Address:[address] [place] [address];[place] [address] * true * Date:
--- OUTSIDE RECORDS SUMMARY | 2025-01-04 01:52 | XMS_ITS | Encounter Summary ---
Author Organization [facility] Address [address] [place] [address] Phone Care Team Providers Care Public Relations Supervisor Name Role Phone Hai Pradhan MD Primary Care Provider [phone] Reason for Referral * Radiology Services (Routine) - Closed Specialty Diagnoses / Procedures Referred By Contac t Referred To Contact Radiology Diagnoses Lumbar radiculopathy Low back pain, unspecified back pain laterality, unspecified chronicity, unspecified whether sciatica present Procedures XR LUMBAR MYELO 1 PHY PC PAIN CONSULT XR LUMBAR MYELO 1 PHY Kenan Patel MD [address] [place] [address] Phone: tel: fax: Referral ID Status Reason Start Date Expiration Date Visits Re quested Visits Authorized [id number] Closed 02/12/2023 1 1 * Radiology Services (Routine) - Closed Specialty Diagnoses / Procedures Referred By Contac t Referred To Contact Radiology Diagnoses Lumbar radiculopathy Low back pain, unspecified back pain laterality, unspecified chronicity, unspecified whether sciatica present Procedures CT LUMBAR SPINE W CONTRAST Kenan Patel MD [address] [place] [address] Phone: tel: fax: Referral ID Status Reason Start Date Expiration Date Visits Re quested Visits Authorized [id number] Closed 02/12/2023 1 1 Encounter Details Date Type Department Care Team (Latest Contact Info) Description 02/12/2023 Transcribe Orders [facility] [address] [place] [address] Kenan Patel MD [address] [place] [address] Lumbar radiculopathy (Primary Dx); Low back pain, [...] CDT Impressions 02/21/2023 12:41 PM CDT IMPRESSION: Posterior lumbar instrumented fusion spanning L2 through L5. Anterior fusion plate and screw stabilizing L5-S1 which appears solid without spinal stenosis or foraminal narrowing. Continued visualization of the disc spaces at L2-3 through L4-5 without high-grade osseous spinal stenosis or neural foraminal stenosis.. Please correlate with clinical factors. MRI may be beneficial if indicated clinically. Narrative 02/21/2023 12:41 PM CDT EXAM DESCRIPTION: CT LUMBAR SPINE W CONTRAST [...] Candelario Campo M.D. LC: ONEAL Report ID: [id number] Reading Location: [id number] Procedure Note Winter Campo MD - 02/21/2023 [...] Candelario Campo M.D. LC: ONEAL Report ID: [id number] Reading Location: [id number] IMPRESSION: Posterior lumbar instrumented fusion spanning L2 [...] CDT Impressions 02/21/2023 11:09 AM CDT IMPRESSION: Lumbar Myelogram performed for CT Myelography. Please refer to the report of the CT Myelogram for detailed diagnostic evaluation. Narrative 02/21/2023 11:09 AM CDT EXAM DESCRIPTION: XR LUMBAR MYELO 1 PHY [...] Miguel Mchugh M.D. KN: SOL Report ID: [id number] Reading Location: [id number] Procedure Note Miguel Mchugh MD - 02/21/2023 [...] Miguel Mchugh M.D. KN: SOL Report ID: [id number] Reading Location: [place] [address] IMPRESSION: Lumbar Myelogram performed for CT Myelography. Please refer to the report of the CT Myelogram for detailed diagnostic evaluation. Kenan Patel MD IMG DIAGNOSTIC ORDERABLES Final [...] present documented in this encounter Care Teams Public Relations Supervisor Relationship Specialty Start Date End Date Hai Pradhan MD [address] [place] [address] PCP - General Internal Medicine 02/18/23 documented as of this encounter
--- NOTE | 2025-01-04 08:58 | ECG_ITS ---
Test Date: 2025-01-04 10:34:10 Measurements Intervals Straughn Rate: 50 P: 68 OR: 167 QRS: 46 QRSD: 110 T: 61 QT: 462 QTc: 424 Interpretive Statements SINUS BRADYCARDIA BASELINE ARTIFACT- I, II, AVR, AVL, AVF, V1 BORDERLINE ECG No previous ECG available for comparison Electronically Signed On 01-04-2025 10:47:36 RN [facility] by Danis Quan D.O.
[2025-01-04] MEDS: LACTATED RINGERS 1,000 ML 30 ML IV CONT (10:50)
[2025-01-04] MEDS: KETOROLAC 15 MG/ML VIAL (*BKC) IV PUSH (10:50)
[2025-01-04] MEDS: ACETAMINOPHEN 500 MG TABLET 1000 MG PO (10:50)
--- NOTE | 2025-01-04 11:36 | WPDHPUPDATE1 ---
History and Physical Update Update Date/Time: 01/04/25 11:36 History and Physical has been reviewed, including an updated exam of the patient. There are NO changes in the patient's condition. Risks, benefits, and alternatives have been discussed and questions answered. Patient agrees to proceed with procedure.
--- NOTE | 2025-01-04 11:42 | WPDANESEPPF ---
Anes - Initial Pre Proc Eval Procedure: Operation Date: 01/04/25 12:00 Proposed Procedures p Rectal Examination Under Anesthesia, Excision of Anal Lesions, Co2 Laser Ablation Of Anal Condyloma - Ernie Zuñiga DO Date/Time: 01/04/25 11:42 Surgeon: Ernie Zuñiga DO Pre Op Diagnosis: Anal Condyloma Patient Data Age: 54 Gender: M Height: 1.7 m Weight: 104.9 kg Last Vital Signs Temp 97.1 F L 01/04/25 10:50 Pulse 57 L 01/04/25 10:50 Resp 14 01/04/25 10:50 BP 131/71 01/04/25 10:50 Pulse Ox 99 01/04/25 10:50 O2 Del Method Room Air 01/04/25 10:50 Allergies Allergy/AdvReac Type Severity Reaction Status Date / Time hydrocodone (From Vicodin) Allergy Intermediate Gastrointestinal Verified 01/04/25 10:57 Upset Penicillins Allergy Intermediate Joint Pain Verified 01/04/25 10:57 Home Medications ?Medication ?Instructions ?Recorded ?Confirmed ?Type aspirin 81 mg tablet,delayed 81 mg PO DAILY 11/04/24 12/23/24 History release cyclobenzaprine 10 mg tablet 10 mg PO TID 11/04/24 12/23/24 History docusate sodium 100 mg capsule 100 mg PO BID PRN constipation 11/04/24 12/23/24 History duloxetine 60 mg capsule,delayed 60 mg PO DAILY 11/04/24 01/04/25 History release losartan 100 mg tablet 100 mg PO DAILY 11/04/24 12/23/24 History rosuvastatin 5 mg tablet 5 mg PO DAILY 11/04/24 12/23/24 History semaglutide 2 mg/dose (8 mg/3 mL) 2 mg subcut WEEKLY 12/23/24 12/23/24 History subcutaneous pen injector (Ozempic) Patient hx anesthesia problems: none Family hx anesthesia problems: none Results Review: All pre-operative results and documents have been reviewed as part of the pre-operative evaluation. [facility] Past Medical History Medical History Chronic, continuous use of opioids Chronic pain Diabetes type 2, controlled Hypertension Hyperlipidemia Surgical History Surgical History History of cervical spinal surgery Social History Social History Smoking packs per day: 1 Smoking cigarettes per day: 20.0 Years smoked: 10 Smoking pack-years: 10.00 Smoking status: Former smoker Tobacco type: cigarettes Smoking end date: 12/23/12 Alcohol intake: current Do You Feel Safe in your Home?: Yes Lack of Transportation: No Lack of Food: Never True Current Housing: I Have Housing Concerned About Future Housing: No Difficulty Paying Gas/Electric Bills: No Difficulty Paying for Meds: No Currently Unemployed: Decline to Answer Education: High School Diploma/GED Difficulty w/ Childcare or Family Care: No Living arrangements: with family Spiritual care concerns: No Anes - Eval Final PreProcedure Day of Procedure 01/04/25 11:42 Patient weight: obese Heart: regular rate and rhythm Lungs: clear to auscultation Airway: Mallampati scale class II and special considerations (Upper incisor cap. ) Neurological: alert and oriented Last oral intake: >/= 8 hours ASA classification: III Emergent: no Anesthetic plan: proceed Anesthesia type and monitoring: general LMA and standard monitoring Results Review: All pre-operative results and documents have been reviewed as part of the pre-operative evaluation. HTN, hyperlipidemia, DM fsbs 124, ERICH on CPAP, ex smoker, quit 2009. Informed Consent: The patient's anesthetic plan and its attendant risks and benefits were discussed with the patient/family/POA. Questions were solicited and answers provided to the satisfaction of the patient/family/POA.
[2025-01-04] MEDS: ceFAZolin 2 GM/D5W 50 ML 2 GM/50 ML BAG IVPB (12:07)
[2025-01-04] MEDS: BUPivacaine HCL 0.5% 10 ML AMP 30 ML INFILTRATE (12:24)
--- NOTE | 2025-01-04 12:40 | W.PM.PROC2 ---
Procedure Note - Detailed Date of Procedure 01/04/25 Pre-op Diagnosis Anal Condyloma Post-op Diagnosis Same Procedure Performed 1. Rectal exam under anesthesia 2. Excision of anal skin lesion 3. CO2 laser ablation anal condyloma Surgeon Ernie Zuñiga, DO Anesthesia General and Local (0.5% bupivacaine with epinephrine) Indications This is a 54-year-old man who presented with multiple perianal skin lesions. He has a history of anal condyloma and was previously treated with topical medication which did not significantly help. He does occasionally get irritation and bleeding from this area. He has had recent colonoscopy which was otherwise normal and showed no evidence of intra anal or rectal condyloma. All of the lesions appeared on the perianal skin. Discussions were made with the patient about treatment options and decision was made to proceed with rectal exam under anesthesia, excision of anal skin lesion, and CO2 laser ablation of anal condyloma. Findings Rectal exam under anesthesia was performed. The patient had a few residual hemorrhoid skin tags in the perianal region, but also had multiple skin lesions consistent with anal condyloma. There was 1 lesion that appeared slightly erythematous in the left posterior region. This was excised and sent to the lab for pathology. The CO2 laser was then used to perform an ablation of any remaining perianal condyloma. No condyloma were identified within the anal canal. Description of Procedure Procedure as well as risks, benefits, and alternatives were discussed with the patient. Written consent was obtained and placed in chart prior to procedure. Patient was brought back to surgical suite. He was placed supine on operating table. Time-out was done to confirm patient and procedure. He was then intubated by the anesthesia department. He was then repositioned to lithotomy position in stirrups. His perirectal area was prepped and draped in sterile fashion using Betadine prep. A careful perianal exam was performed. 0.5% bupivacaine with epinephrine was then infiltrated in the perianal region. An anal condyloma was identified in the left posterior region. This was excised using a 15 blade scalpel. Electrocautery was used for hemostasis. The remaining condyloma lesions in the perianal region were ablated using CO2 laser. The laser setting was started at 4 and then also increased to 6. Careful ablation was performed around all visible condyloma. Hemostasis appeared adequate and no other abnormalities were noted. No condyloma were noted internally within the anal canal. Xeroform gauze was then applied followed by 4 x 4 gauze and mesh underwear. The patient was then awakened from anesthesia, extubated, and transferred to recovery. Estimated Blood Loss 5 Pathology Yes (Left posterior anal skin lesion) Complications No immediate complications Condition Stable Disposition Same day [facility] Billing Surgery - Charge Forward: Surgery Billing
[2025-01-04 13:09] LABS: Glucose Point of Care 101 mg/dl (65-105)
[2025-01-04] MEDS: oxyCODONE HCL (*CRX) 5 MG TAB IR PO (13:39)
== END 2025-01-04 14:21 | disposition home or self-care (01) ==
PROVIDERS: PCP Internal Medicine; Visit Provider Surgery
PROC: (CPT 46917; principal; 2025-01-04 12:00)
DX: A63.0 Anogenital (venereal) warts (principal); K64.4 Residual hemorrhoidal skin tags; I10 Essential (primary) hypertension; E11.9 Type 2 diabetes mellitus without complications
CPT/HCPCS: 46917; 46922; 82948; 88305; 93005; A9270; J0690; J1100; J1885; J2003; J2250; J2405; J2704; J3010; J7120

== ENCOUNTER 2025-06-02 13:03 | Outpatient (CLI) | payer MEDICARE, SELFPAY ==
--- OUTSIDE RECORDS SUMMARY | 2025-06-02 13:10 | XMS_ITS | Patient Health Record ---
Author Organization [facility] Address [address] [place] [address] Care Team Providers Care Heddler Name Role Phone Brian Chen [phone] Allergies Allergen (clinical drug ingredient) Drug/Non Drug Allergy documented on EMR Reaction Allergy Type Onset Date Status Penicillin itchy Drug Allergy Active Reason For Referral No Information Medications Medication SIG (Take, Route, Frequency, Duration) Notes Start Date End Date Status Pregabalin 75 MG 1 capsule Orally riana ly at bedtime for one week then, if well tolerated, q 12 hours; Duration: 30 days 04/16/2023 Active DULoxetine HCl 60 MG 1 capsule Orally On ce a day Active Celecoxib 200 MG 1 capsule with food Orally Once a day Active Losartan Potassium 100 MG 1 tablet Orally Once a day Active Social History Tobacco Use: Social History Observation Description Date Details (start date - stop date) Former Smoker NA - NA Tobacco Use/Smoking Question Answer Notes Are you a former smoker Problems Problem Type SNOMED Code ICD Code Onset Dates Problem Status W/U Status Risk Notes Problem Failed back syndrome (M96.1) Active confirmed Problem Bilateral sacroiliitis (8699201414) Bilateral sacroiliitis (M46.1) Active confirmed Problem History of lumbar fusion (83076936546206) History of lumbar fusion (Z98.1) Active confirmed Plan Of Treatment No Information Medications Administered Medication Instructions Date of Administration Dosage Notes Bilateral Sacroiliac Joint Injection 04/29/2023 Medical (General) History Medical History History ICD Code high blood pressure headaches nerve damage
--- OUTSIDE RECORDS SUMMARY | 2025-06-02 13:10 | XMS_ITS | Referral Summary ---
Author Organization [facility] [address] Address [address] [place] [address] Phone Care Team Providers Care Sales Representative Name Role Phone Pascale Wolff MD Unavailable Rudi Patel MD Unavailable [phone] Hai Pradhan MD Primary Care Provider [phone] Encounters Date Type Department Care Team Description 03/31/2025 2:15 PM CDT Telemedicine [facility] Sleep Medicine at [address] [place] [address] Faye Colindres MD Obstructive sleep apnea (Primary Dx); Hypersomnia; Obesity, unspecified class, unspecified obesity type, unspecified whether serious comorbidity present 03/24/2025 Telephone [facility] [address] [place] [address] [address] [place] [address] Melanie Palacios MA from Last 3 Months Allergies Active Allergy Reactions Criticality Noted Date Comments Hydrocodone Stomach upset,Sweating Low 10/25/2020 Penicillins Rash Medium 05/25/2010 Red itchy rash a day or two after starting it. Medications multivitamin (MULTIPLE VITAMINS) tablet tablet take 1 by Oral route daily 0 0 09/06/2016 Active aspirin 81 mg tablet Take 1 tablet (81 mg total) by mouth daily Active albuterol HFA (PROVENTIL HFA,VENTOLIN HFA,PROAIR HFA) 90 mcg/actuation inhalerIndicati ons:Bronchospas m Prevention Inhale 2 puffs every 6 (six) hours as needed for wheezing 1 Inhaler 5 07/22/[address] (CYMBALTA) 60 mg capsuleIndicati ons:Chronic midline low back pain without sciatica,Persis tent mood disorder TAKE 1 CAPSULE (60 MG TOTAL) BY MOUTH DAILY 90 capsule 1 10/02/2021 Active rosuvastatin (CRESTOR) 5 mg tablet Take 1 tablet (5 mg total) by mouth every morning 12/08/2024 Active Ozempic 2 mg/dose (8 mg/3 mL) pen injector injection Inject 2 mg under the skin every 7 days Q Saturday12/01/2024 Active cyclobenzaprine (FLEXERIL) 10 mg tablet Take 1 tablet (10 mg total) by mouth 3 (three) times a day as needed for muscle spasms Active meloxicam (MOBIC) 15 mg tablet Take 1 tablet (15 mg total) by mouth nightly 11/26/2024 Active ascorbic acid (VITAMIN C) 500 mg tablet,chewable Take 1 tablet/chew tab (500 mg total) by mouth 2 (two) times a day 60 tablet/chew tab 02/15/2025 Active cholecalciferol (VITAMIN D-3) 2000 unit capsule Take 1 capsule (2,000 Units total) by mouth daily 30 capsule 02/15/2025 Active traMADoL (ULTRAM) 50 mg tablet Take 1 tablet (50 mg total) by mouth every 6 (six) hours as needed for pain 15 tablet 02/15/2025 Active pregabalin (LYRICA) 75 mg capsule 1 capsule (75 mg total) 04/16/2023 Active losartan (COZAAR) 50 mg tablet Take 1 tablet (50 mg total) by mouth daily Active Active Problems Problem Noted Date Diagnosed [...] of this month with Dr. Patel at [facility]. MRI of the lumbar spine was done at [facility], and we will get those images and report. However there has been no imaging of the C-spine. Exam shows normal strength and reflexes except for mild bilateral hand printing engineer weakness. Sensory exam in the arms and [...] 41. Assessment & Plan (01/27/2021 4:04 PM COMMUNICATION CONSULTANT): He has started to work on his weight. His girlfriend who is a nurse is helping him. Hopefully this will get him on a trend downward instead of upward. Assessment & Plan (10/09/2020 10:37 AM COMMUNICATION CONSULTANT): We recommended attention to his diet [...] get it down. 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 Continue efforts. Assessment & Plan (11/01/2018 1:36 PM COMMUNICATION CONSULTANT): He has lost about 10 lb [...] continued 6. Avoid alcohol sedatives and other PIGMENT WEIGHER depression that may worsen sleep apnea and disrupt normal sleep architecture Assessment & Plan (01/27/2021 4:03 PM COMMUNICATION CONSULTANT): He continues on CPAP. He gets a good night's sleep. Assessment & Plan (07/22/2020 3:16 PM CDT): He went on CPAP and it has been life changing. He sleeping well. Energy level is good. Verruca vulgaris 10/31/2019 Assessment & Plan (12/01/2019 3:55 PM COMMUNICATION CONSULTANT): I will set the patient up for the removal of the last remaining skin lesions. Assessment & Plan (10/31/2019 10:41 AM COMMUNICATION CONSULTANT): Pathology results returned as verruca vulgaris. We will plan for removal of another 20-30 in the setting. Given the shear number we may have to bring him back 1 further time to complete the last few remaining. He is in understanding. Steatohepatitis, non-alcoholic 07/26/2019 Assessment & Plan (01/27/2021 4:03 PM COMMUNICATION CONSULTANT): He has had a mild elevation of liver enzymes. I recommended weight loss. We will monitor labs periodically. Assessment & Plan (10/03/2020 3:47 PM COMMUNICATION CONSULTANT): His last set of labs did [...] only scores 3 or 4 on the [place] scale. However he seems to be at risk for sleep apnea. He is quite obese. He has a Mallampati class 2-3 exam. [facility]. We will request a [...] 10/22/2018 Assessment & Plan (10/09/2020 10:37 AM COMMUNICATION CONSULTANT): We went over his lipids for [...] recheck. Assessment & Plan (10/03/2020 3:46 PM COMMUNICATION CONSULTANT): He is here for biometric screening [...] requested. Assessment & Plan (10/24/2018 3:21 PM COMMUNICATION CONSULTANT): Blood pressure is in a good [...] DISCUSSED WITH DR. COLINDRES OVER THE PHONE. WE WILL GET ECHOCARDIOGRAM STUDY TO SEE IF THE LV FUNCTION IS INDEED SLIGHTLY DIMINISHED. DIET, EXERCISE AND THERAPEUTIC LIFESTYLE CHANGES DISCUSSED WITH THE PATIENT. Assessment & Plan (01/27/2021 4:06 PM COMMUNICATION CONSULTANT): He had mild coronary disease on [...] medicine. Assessment & Plan (10/24/2018 3:21 PM COMMUNICATION CONSULTANT): He has no complaints of chest [...] sugar. Assessment & Plan (10/03/2020 3:46 PM COMMUNICATION CONSULTANT): We discussed the mild elevation of his blood sugar which might be pre diabetes. Weight loss would be helpful. Assessment & Plan (10/24/2018 3:22 PM COMMUNICATION CONSULTANT): In the past, he has had [...] COPD Assessment & Plan (01/27/2021 4:07 PM COMMUNICATION CONSULTANT): He has mild to moderate symptoms. He has a rescue inhaler for use as needed. He has not been using his Symbicort because it is so expensive. He will call his insurance to see if alternatives are available. Assessment & Plan (10/09/2020 10:35 AM COMMUNICATION CONSULTANT): He has chronic COPD from allergies. [...] satisfactory. Assessment & Plan (10/24/2018 3:20 PM COMMUNICATION CONSULTANT): He used to smoke cigarettes but quit many years ago. He does use a Symbicort inhaler and has a rescue inhaler as needed. Lungs are clear and oxygen saturations are normal. Continue same. Low back pain 08/25/2007 Overview (03/01/2017): Low back pain Assessment & Plan (10/21/2021 1:02 PM COMMUNICATION CONSULTANT): Scanned office note, Dr. Patel, Motion [...] same. Assessment & Plan (10/24/2018 3:23 PM COMMUNICATION CONSULTANT): He is on Cymbalta. His mood [...] management. Assessment & Plan (12/05/2020 4:31 PM COMMUNICATION CONSULTANT): Probable tendonitis. I advised that he [...] Srinivasaicef. Assessment & Plan (10/09/2020 10:36 AM COMMUNICATION CONSULTANT): Since last , about five days [...] Stephie. Assessment & Plan (11/13/2019 2:34 PM COMMUNICATION CONSULTANT): Pt has improved over the past [...] 10/31/2019 Assessment & Plan (10/16/2019 1:32 PM COMMUNICATION CONSULTANT): We will set this patient up for excision under local anesthetic in the office. Given the shear number and sensitive nature of the area I have discussed that we may have to do this in 2 settings given the large number. He is in understanding. Assessment & Plan (10/11/2019 1:21 PM COMMUNICATION CONSULTANT): Discussed the procedure of excision of the lesion and the patient expressed desire for removal of the inner thigh lesion and 3 on his back. Discussed wound care after procedure. Community acquired pneumonia of right lower lobe of lung 10/10/2019 11/28/2019 Overview (11/28/2019): See office note. Treated empirically. Assessment & Plan (10/24/2019 11:12 AM COMMUNICATION CONSULTANT): He has had respiratory symptoms off [...] go to ER if getting worse. Immunizations Immunization Administration Dates Next Due Hep A / [...] drink = 0.6 oz pur e alcohol) AUDIT-C Answer Date Recorded Q1: How often do you have a drink containing alcohol? Never 02/15/2025 Q2: How many drinks containi ng alcohol do you have on a typical day when you are drinking? Patient does not drink Q3: How often do you have si x or more drinks on one occasion? Never 02/15/2025 PHQ-2 Answer Date Recorded PHQ-2 Total Score (If total score is 3 or more points, staff should administer the PHQ-9) 0 07/22/2020 Personal Safety Answer Date Recorded Have you ever been in or are you currently in a harmful physical or emotional relationship or is someone making you feel afraid or unsafe? Denies 02/15/2025 Sex and Gender Information Value Date Recorded Sex Assigned at Not on file Legal Sex Male 9:12 AM COMMUNICATION CONSULTANT Gender Identity Not on file Sexual Orientation Not on file Last Filed Vital Signs Vital Sign Reading Time Taken Comments Blood Pressure 126/79 03/01/2025 8:06 AM CDT Pulse 59 03/01/2025 8:06 AM CDT Temperature 36.1 C (97 F) 02/15/2025 3:57 PM CDT Respiratory Rate 15 02/15/2025 3:57 PM CDT Oxygen Saturation 99% 02/22/2025 8:08 AM CDT Inhaled Oxygen Concentration - - Weight 105.7 kg (233 lb) 03/01/2025 8:06 AM CDT Height 170.2 cm (5' 7) 03/01/2025 8:06 AM CDT Body Mass Index 36.49 03/01/2025 8:06 AM CDT Plan of Treatment Not on file Medical Devices Implanted Type Area Jewelry Enameler Device Identifier Shelf Expiration Date Model / Serial / Lot Neurostimulator Neurostimulator Back [facility] Targeted [employer] [facility] Device Closure Vascade Od5 Fr Femoral Artery [id number] - [id number] Implanted:Qty: 1 on 12/30/2024 by Polly Null MD at [facility] [employer] [facility] 04/02/2026 [id number] / / [id number] Procedures Procedure Name Priority Date/Time Associated Diagnosis Comments HEPATITIS C ANTIBODY Routine 07/21/2019 7:06 AM CDT from Last 3 Months or Most Recently Relevant to Health Maintenance Results * Hepatitis C antibody (07/21/2019 7:06 AM CDT) Hep C Ab NON-REACT CATRINA NON-REACT CATRINA [facility] SIGNAL TO CUT-OFF 0.03 <1.00 [facility] [place] Comment: HCV antibody was non-reactive. There is no laboratory evidence of HCV infection. In most cases, no further action is required. However, if recent HCV exposure is suspected, a test for HCV RNA (test code 44907) is suggested. For additional information please refer to http://education.Livestar/faq/AED76a9 (This link is being provided for informational/ educational purposes only.) 07/21/2019 7:06 AM CDT 07/21/2019 7:11 AM CDT Narrative [facility] - 07/23/2019 4:34 PM CDT FASTING:YES FASTING: YES Resulting Agency Comment Performing Organization Information: Site ID: [id number] Name: [facility] Address: [address] [address] Director: Orion Glynn D.O., MPH Az Allison MD LAB MICROBIOLOGY - GENERAL OR DERABLES Final Result [facility] from Last 3 Months or Most Recently Relevant to Health Maintenance Insurance [facility]ICARE [facility] Address: [address] [address] [place] [address] WORKERS COMPENSATION GENERIC WORKERS COMPENSATION GENERIC Care Teams Sales Representative Relationship Specialty Start Date End Date Hai Pradhan MD PCP - General Internal Medicine 09/20/22 Pascale Wolff MD Consulting Physician Sleep Medicine 12/06/19 Rudi Patel MD Resident Neurosurgery 06/08/21
--- OUTSIDE RECORDS SUMMARY | 2025-06-02 13:10 | XMS_ITS | Data Portability ---
Author Organization [facility] Terese [facility] Address [address] [place] [address] Assessment No assessment recorded. Plan of Treatment [...] SNOMED-CT Code Diagnosis ICD10 Code Diagnosis Note [id number] MD Mary Georges 14 IM [address] [facility] [address] [place] [address] 03/24/2021 15:02:45 03/24/2021 16:17:15 Administration of SARS-CoV-2 antigen vaccine [id number] Z23 [id number] MD Mary Georges 14 IM [address] [place] [address] 04/21/2021 14:46:55 04/21/2021 15:46:03 Administration of SARS-CoV-2 antigen vaccine [id number] Z23 Health Concerns Section Related Observation LastModified by Organization Detai ls LastModified Time None Recorded Concern Status LastModified by Organization Details LastModified Time None Recorded Advance Directives Directive None Recorded Payers Insurance Date Sequence Insurance Name Policy Number Policy Clement Covered Member ID Clement Member ID Guarantor Name 04/15/2024 [facility] [employer] Javier Sanchez [id number] Javier Sanchez 04/15/2024 1 [facility] - DOS PRIOR TO 2021 (MEDICAID REPLACEMENT - HMO) Javier Sanchez [id number] Javier Sanchez
--- OUTSIDE RECORDS SUMMARY | 2025-06-02 13:10 | XMS_ITS | Encounter Summary ---
Author Organization [facility] Address [address] [place] [address] Phone Care Team Providers Care Child Care Director Name Role Phone Hai Pradhan MD Primary Care Provider [phone] Reason for Referral * Radiology Services (Routine) - Closed Specialty Diagnoses / Procedures Referred By Contac t Referred To Contact Radiology Diagnoses Lumbar radiculopathy Low back pain, unspecified back pain laterality, unspecified chronicity, unspecified whether sciatica present Procedures XR LUMBAR MYELO 1 PHY PC PAIN CONSULT XR LUMBAR MYELO 1 PHY Kenan Patel MD [address] [place] [address] Phone: tel: fax: Referral ID Status Reason Start Date Expiration Date Visits Re quested Visits Authorized [id number] Closed 02/12/2023 1 1 * Radiology Services (Routine) - Closed Specialty Diagnoses / Procedures Referred By Contac t Referred To Contact Radiology Diagnoses Lumbar radiculopathy Low back pain, unspecified back pain laterality, unspecified chronicity, unspecified whether sciatica present Procedures CT LUMBAR SPINE W CONTRAST Kenan Patel MD [address] [place] [address] Phone: tel: fax: Referral ID Status Reason Start Date Expiration Date Visits Re quested Visits Authorized [id number] Closed 02/12/2023 1 1 Encounter Details Date Type Department Care Team (Latest Contact Info) Description 02/12/2023 Transcribe Orders [facility] [address] [place] [address] Kenan Patel MD [address] [place] [address] Lumbar radiculopathy (Primary Dx); Low back pain, [...] Candelario Campo M.D. LC: ONEAL Report ID: [id number] Reading Location: [id number] Procedure Note Winter Campo MD - 02/21/2023 [...] Candelario Campo M.D. LC: ONEAL Report ID: [id number] Reading Location: [id number] IMPRESSION: Posterior lumbar instrumented fusion spanning L2 [...] Miguel Mchugh M.D. KN: SOL Report ID: [id number] Reading Location: [id number] Procedure Note Miguel Mchugh MD - 02/21/2023 [...] Miguel Mchugh M.D. KN: SOL Report ID: [id number] Reading Location: [place] [address] IMPRESSION: Lumbar Myelogram performed for CT Myelography. [...] present documented in this encounter Care Teams Child Care Director Relationship Specialty Start Date End Date Hai Pradhan MD [address] [place] [address] PCP - General Internal Medicine 02/18/23 documented as of this encounter
--- OUTSIDE RECORDS SUMMARY | 2025-06-02 13:10 | XMS_ITS | Clinical Summary ---
Author Organization [facility] [address] Address [address] [place] [address] Phone Care Team Providers Care Drag Out Man Name Role Phone Pascale Wolff MD Unavailable Rudi Patel MD Unavailable Hai Pradhan MD Primary Care Provider [phone] Allergies Active Allergy Reactions Criticality Noted Date [...] of this month with Dr. Patel at [facility]. MRI of the lumbar spine was done at [facility], and we will get those images and report. However there has been no imaging of the C-spine. Exam shows normal strength and reflexes except for mild bilateral hand banana expert weakness. Sensory exam in the arms and [...] 40. Assessment & Plan (01/27/2021 4:04 PM ENTERPRISE APPLICATIONS MANAGER): He has started to work on his weight. His girlfriend who is a nurse is helping him. Hopefully this will get him on a trend downward instead of upward. Assessment & Plan (10/09/2020 10:37 AM ENTERPRISE APPLICATIONS MANAGER): We recommended attention to his diet [...] to get it down. 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 Continue efforts. Assessment & Plan (11/01/2018 1:36 PM ENTERPRISE APPLICATIONS MANAGER): He has lost about 10 lb [...] continued 6. Avoid alcohol sedatives and other FRUIT RAISER depression that may worsen sleep apnea and disrupt normal sleep architecture Assessment & Plan (01/27/2021 4:03 PM ENTERPRISE APPLICATIONS MANAGER): He continues on CPAP. He gets a good night's sleep. Assessment & Plan (07/22/2020 3:16 PM CDT): He went on CPAP and it has been life changing. He sleeping well. Energy level is good. Verruca vulgaris 10/31/2019 Assessment & Plan (12/01/2019 3:55 PM ENTERPRISE APPLICATIONS MANAGER): I will set the patient up for the removal of the last remaining skin lesions. Assessment & Plan (10/31/2019 10:41 AM ENTERPRISE APPLICATIONS MANAGER): Pathology results returned as verruca vulgaris. We will plan for removal of another 20-30 in the setting. Given the shear number we may have to bring him back 1 further time to complete the last few remaining. He is in understanding. Steatohepatitis, non-alcoholic 07/26/2019 Assessment & Plan (01/27/2021 4:03 PM ENTERPRISE APPLICATIONS MANAGER): He has had a mild elevation of liver enzymes. I recommended weight loss. We will monitor labs periodically. Assessment & Plan (10/03/2020 3:47 PM ENTERPRISE APPLICATIONS MANAGER): His last set of labs did [...] only scores 3 or 4 on the Varney scale. However he seems to be at risk for sleep apnea. He is quite obese. He has a Mallampati class 2-3 exam. His friends tell salomonor that he snores. We will request a [...] 10/22/2018 Assessment & Plan (10/09/2020 10:37 AM ENTERPRISE APPLICATIONS MANAGER): We went over his lipids for [...] recheck. Assessment & Plan (10/03/2020 3:46 PM ENTERPRISE APPLICATIONS MANAGER): He is here for biometric screening [...] requested. Assessment & Plan (10/24/2018 3:21 PM ENTERPRISE APPLICATIONS MANAGER): Blood pressure is in a good [...] PATIENT. Assessment & Plan (01/27/2021 4:06 PM ENTERPRISE APPLICATIONS MANAGER): He had mild coronary disease on [...] medicine. Assessment & Plan (10/24/2018 3:21 PM ENTERPRISE APPLICATIONS MANAGER): He has no complaints of chest [...] sugar. Assessment & Plan (10/03/2020 3:46 PM ENTERPRISE APPLICATIONS MANAGER): We discussed the mild elevation of his blood sugar which might be pre diabetes. Weight loss would be helpful. Assessment & Plan (10/24/2018 3:22 PM ENTERPRISE APPLICATIONS MANAGER): In the past, he has had [...] COPD Assessment & Plan (01/27/2021 4:07 PM ENTERPRISE APPLICATIONS MANAGER): He has mild to moderate symptoms. He has a rescue inhaler for use as needed. He has not been using his Symbicort because it is so expensive. He will call his insurance to see if alternatives are available. Assessment & Plan (10/09/2020 10:35 AM ENTERPRISE APPLICATIONS MANAGER): He has chronic COPD from allergies. [...] satisfactory. Assessment & Plan (10/24/2018 3:20 PM ENTERPRISE APPLICATIONS MANAGER): He used to smoke cigarettes but quit many years ago. He does use a Symbicort inhaler and has a rescue inhaler as needed. Lungs are clear and oxygen saturations are normal. Continue same. Low back pain 08/25/2007 Overview (03/01/2017): Low back pain Assessment & Plan (10/21/2021 1:02 PM ENTERPRISE APPLICATIONS MANAGER): Scanned office note, Dr. Patel, [facility] [...] same. Assessment & Plan (10/24/2018 3:23 PM ENTERPRISE APPLICATIONS MANAGER): He is on Cymbalta. His mood [...] management. Assessment & Plan (12/05/2020 4:31 PM ENTERPRISE APPLICATIONS MANAGER): Probable tendonitis. I advised that he [...] Mini. Assessment & Plan (10/09/2020 10:36 AM ENTERPRISE APPLICATIONS MANAGER): Since last , about five days [...] noteStephie. Assessment & Plan (11/13/2019 2:34 PM ENTERPRISE APPLICATIONS MANAGER): Pt has improved over the past [...] 10/31/2019 Assessment & Plan (10/16/2019 1:32 PM ENTERPRISE APPLICATIONS MANAGER): We will set this patient up for excision under local anesthetic in the office. Given the shear number and sensitive nature of the area I have discussed that we may have to do this in 2 settings given the large number. He is in understanding. Assessment & Plan (10/11/2019 1:21 PM ENTERPRISE APPLICATIONS MANAGER): Discussed the procedure of excision of the lesion and the patient expressed desire for removal of the inner thigh lesion and 3 on his back. Discussed wound care after procedure. Community acquired pneumonia of right lower lobe of lung 10/10/2019 11/28/2019 Overview (11/28/2019): See office note. Treated empirically. Assessment & Plan (10/24/2019 11:12 AM ENTERPRISE APPLICATIONS MANAGER): He has had respiratory symptoms off [...] Team Description 03/31/2025 2:15 PM CDT Telemedicine [facility] at [address] [place] [address] Faye Colindres MD Obstructive sleep apnea (Primary Dx); Hypersomnia; Obesity, unspecified class, unspecified obesity type, unspecified whether serious comorbidity present 03/24/2025 Telephone [facility] [address] [place] [address] [address] [place] [address] Melanie Palacios MA from Last 3 Months Immunizations Immunization Administration Dates Next Due Hep [...] AND DISTAL CLAVICLE EXCISION 11/25/2001 - 11/24/[address] Henriquez. CARPAL TUNNEL RELEASE 11/25/2013 - 11/24/[address] Fajardo CARDIAC CATHETERIZATION 12/13/2014 Left Mild CAD, mildly diminished LVEF, [facility], [facility] CERVICAL FUSION 11/25/2021 - 11/24/2022 x4 SPINAL CORD STIMULATOR IMPLANT 11/25/2022 - 11/24/2023 CARDIAC CATHETERIZATION 12/30/2024 N/A Procedure: LEFT HEART CATHETERIZATION WITH CORONARY ANGIOGRAPHY AND WITH OR WITHOUT LEFT VENTRICULOGRAM [id number]; Surgeon: Polly Null MD; Location: [facility]; Service: Cardiovascular; Laterality: N/A; Medical devices from this surgery are in the Medical Devices section. SPINAL FUSION fused L4-L1 Medical History Medical History Date Comments Chronic [...] on file Legal Sex Male 9:12 AM ENTERPRISE APPLICATIONS MANAGER Gender Identity Not on file Sexual [...] 03/01/2025 8:06 AM CDT Plan of Treatment Health Maintenance Due Date Last Done Comments Colon Cancer Screening-Colonoscopy 1971 Prostate Cancer Screening-PSA 1971 DTaP/Tdap/Td Vaccine (1 - Tdap) 09/18/2014 09/17/2014, 05/25/2007, 05/25/2007 Depression Screening 07/22/2021 07/22/2020, 10/24/20 18 Regular Well Visit/Exam 18-64 07/22/2021, 07/17/2019, 02/06/2018 Lung Cancer Screening 2021 Zoster Vaccine (1 of 2) 2021 Pneumococcal vaccine <65 (3 of 3 - PCV20 or PCV21) 07/17/2024 07/17/2019, 02/06/2018, 08/10/2014, Additional history exists Covid-19 Vaccine (3 - 2023-2 5 season) 2024 04/21/2021, 03/24/2021 Influenza Vaccine (Season Ended) 2025 08/27/2020, 08/29/2019, 10/13/2018, Additional history exists Hepatitis C Screening Completed 07/21/2019 Medical Devices Implanted Type Area Furniture Technician Device Identifier Shelf Expiration Date Model / Serial / Lot Neurostimulator Neurostimulator Back [facility] Device Closure Vascade Od5 Fr Femoral Artery [id number] - [id number] Implanted:Qty: 1 on 12/30/2024 by Polly Null MD at [facility] 04/02/2026 [id number] / / [id number] Procedures Procedure Name Priority Date/Time Associated Diagnosis Comments HEPATITIS C ANTIBODY Routine 07/21/2019 7:06 AM CDT from Last 3 Months or Most Recently Relevant to Health Maintenance Results * Hepatitis C antibody (07/21/2019 7:06 AM CDT) Hep C Ab NON-REACT CATRINA NON-REACT CATRINA [facility] - [employer] SIGNAL TO CUT-OFF 0.03 <1.00 [facility] - [place] Comment: HCV antibody was non-reactive. There is no laboratory evidence of HCV infection. In most cases, no further action is required. However, if recent HCV exposure is suspected, a test for HCV RNA (test code 79548) is suggested. For additional information please refer to http://education.[employer]/faq/XUX55m4 (This link is being provided for informational/ educational purposes only.) 07/21/2019 7:06 AM CDT 07/21/2019 7:11 AM CDT Narrative [facility] - 07/23/2019 4:34 PM CDT FASTING:YES FASTING: YES Resulting Agency Comment Performing Organization Information: Site ID: [place] Name: [employer] Address: [address] [place] [address] Director: Orion Glynn D.O., MPH Az Allison MD LAB MICROBIOLOGY - GENERAL OR DERABLES Final Result [facility]LOW - AMADA Carrera from Last 3 Months or Most Recently Relevant to Health Maintenance Insurance [facility] MEDICARE [facility] Address: [address] [address] [place] [address] WORKERS COMPENSATION GENERIC WORKERS COMPENSATION GENERIC Care Teams Drag Out Man Relationship Specialty Start Date End Date Hai Pradhan MD PCP - General Internal Medicine 09/20/22 Pascale Wolff MD Consulting Physician Sleep Medicine 12/06/19 Rudi Patel MD Resident Neurosurgery 06/08/21
--- OUTSIDE RECORDS SUMMARY | 2025-06-02 13:10 | XMS_ITS | Clinical Summary ---
Author Organization [facility] Address [address] [place] [address] Phone Care Team Providers Care Fuel Dock Attendant Name Role Phone Hai Pradhan MD Primary Care Provider [phone] Allergies Active Allergy Reactions Criticality Noted Date [...] 8:22 AM CDT Height 170.2 cm (5' 7) 02/21/2023 8:22 AM CDT Body Mass Index 42.91 02/21/2023 8:22 AM CDT Plan of Treatment Health Maintenance Due Date Last Done Comments Hepatitis C Virus (HCV) Screening 1971 Cologuard 2016 Colonoscopy 2016 Colorectal Cancer Screening 2016 Immunochemical Fecal Occult Blood 2016 Hepatitis B Immunization (2 of 3 - Hep B Twinrix 3-dose series) 08/25/2019 07/28/2019 Pneumococcal Immunization (50+ years) (3 of 3 - PCV20 or PCV21) 07/17/2024 07/17/2019, 02/06/2018, 08/10/2014, Additional history exists SARS-COV-2 Immunization ( season) 2024 08/27/2022, 11/09/2021, 04/21/2021, Additional history exists Influenza Immunization (#1) 07/26/202502/2022, 08/26/2020, 08/29/2019, Additional history exists Respiratory Syncytial Virus (RSV) Immunization (Adult) (1 - 1-dose 75+ series) 2046 Pneumococcal Immunization Combined Discontinued 07/17/2019, 02/06/2018, 08/10/2014, Additional history exists DTaP/Tdap/Td Immunization Discontinued 2021, 09/17/2014, 05/25/2007 TdaP Immunization Completed 04/16/2022 Zoster Immunization Completed 05/08/2022, Human Papillomavirus (HPV) Immunization Aged Out No longer eligible based on patient's age to complete this topic Meningococcal Immunization (ACWY) Aged Out No longer eligible based on patient's age to complete this topic Rotavirus Immunization Aged Out No lo nger eligible based on patient's age to complete this topic Insurance [facility], M5 1S7 Care Teams Fuel Dock Attendant Relationship Specialty Start Date End Date Hai Pradhan MD [address] [place] [address] PCP - General Internal Medicine 02/18/23
[2025-06-02 13:45] LABS: Anion Gap 7 mmol/L (4-12); Blood Urea Nitrogen 14 mg/dL (9-20); Calcium 9.5 mg/dL (8.4-10.2); Carbon Dioxide 29 mmol/L (22-30); Chloride 104 mmol/L (98-107); Estimated Glomerular Filt Rate 60; Glucose 87 mg/dL (65-110); Osmolality Calculated 289 mOsm/kg (285-295); Potassium 4.8 mmol/L (3.4-5.0); Sodium 140 mmol/L (137-145)
== END 2025-06-02 13:04 | disposition home or self-care (01) ==
PROVIDERS: PCP Anesthesiology; Visit Provider Anesthesiology
DX: E11.9 Type 2 diabetes mellitus without complications (principal)
CPT/HCPCS: 36415; 80048

== ENCOUNTER 2025-06-07 01:35 | Day surgery (SDC) | payer MEDICARE, SELFPAY ==
[2025-06-01 15:01] VITALS: BMI 36.2
--- NOTE | 2025-06-01 15:11 | PC.NURSE ---
Report to the Outpatient Waiting Room, entrance under the green pavilion located off [facility], at time _1000 on date _06/07/25_. Planned Procedure Time: __1200 .? Time changes happen often and if your time is changed the preop area will call you the afternoon before. - You and your visitor will be asked to self-screen and do not enter if you have any COVID symptoms. Please call surgeon if you need to reschedule. - A mask is optional within the hospital at this time. Patients may have clear liquids (water, carbonated beverages, clear teas, apple juice) until 3 hours prior to surgery with a maximum of 20 ounces. - No food from midnight until time of surgery and no smoking, or chewing tobacco (or any form of nicotine). No chewing gum, candy or mints. - Infants may have breast milk until 4 hours before surgery, infant formula 6 hours prior to surgery. - Children will be allowed to drink immediately following surgery.? If applicable, please bring a bottle or sippy cup to assist with drinking. Juice, water, soda, and popsicles are readily available.? For infants on formula, please bring formula the day of surgery.? Pacifiers are allowed. Take only the following medications with a SIP of water on the morning of surgery: __DULOXETINE DO NOT STOP ANY OF YOUR OTHER PRESCRIPTION MEDICATIONS PRIOR TO SURGERY EXCEPT THE FOLLOWING Hold all vitamins and supplements for 3 days per anesthesiologist. Medications to discontinue per physician Date to take last dose Please no make-up, nail brazilian, hairspray, perfume, deodorant, or body powder the day of surgery.? No jewelry (including any body piercings) or valuables the day of surgery, leave them at home.? Please take a shower or bath the night before, or the morning of, surgery with HIBICLENS antibacterial soap.? Wear comfortable, loose fitting clothing.? Children are encouraged to wear pajamas. - Jewelry must be removed prior to entering the operating room.? Rings and piercings that are not removed may be cut off. - The hospital will not accept responsibility for valuables.? - Please leave all valuables, including medications, at home the day of surgery. If you are going home after surgery, a licensed transport driver must drive you home.? - NO public transportation without another adult if you receive anesthesia. - We recommend that an adult stay with you for 24 hours following discharge. - We also recommend that you do not drive, make important decision, drink alcoholic beverages, or take any drugs that were not prescribed by your health care provider for at least 24 hours after your discharge time. For Pediatric surgeries, we recommend two adults accompany the child home. Follow any additional instructions given to you from your surgeon. Telephone instructions given to PATIENT_and asked if any additional questions and then verbalized understanding. Patient advised to call surgeon office or pre surgery nurse liaison [phone] if any additional questions.
[2025-06-07] VITALS (7 sets, daily range): BP systolic 115–141; BP diastolic 60–78; PULSE 51–74; RESP 13–18; TEMP 36.2–36.6; O2SAT 96–100; BMI 35.2
--- OUTSIDE RECORDS SUMMARY | 2025-06-07 01:48 | XMS_ITS | Clinical Summary ---
Author Organization [facility] Address [address] [place] [address] Phone Care Team Providers Care Agricultural And Forestry Supervisor Name Role Phone Hai Pradhan MD Primary Care Provider [phone] Allergies Active Allergy Reactions Criticality Noted Date [...] patient's age to complete this topic Insurance [facility] GENER[facility], M5 1S7 Care Teams Agricultural And Forestry Supervisor Relationship Specialty Start Date End Date Hai Pradhan MD [address] [place] [address] PCP - General Internal Medicine 02/18/23
--- OUTSIDE RECORDS SUMMARY | 2025-06-07 01:49 | XMS_ITS | Clinical Summary ---
Author Organization [facility] [address] Address [address] [place] [address] Phone Care Team Providers Care Supervisor Winding Department Name Role Phone Pascale Wolff MD Unavailable Rudi Patel MD Unavailable [phone] Hai Pradhan MD Primary Care Provider [phone] Allergies Active Allergy Reactions Criticality Noted Date [...] of this month with Dr. Patel at [facility]. MRI of the lumbar spine was done at [facility], and we will get those images and report. However there has been no imaging of the C-spine. Exam shows normal strength and reflexes except for mild bilateral hand pricing associate weakness. Sensory exam in the arms and [...] 40. Assessment & Plan (01/27/2021 4:04 PM EMPLOYEE BENEFITS COORDINATOR): He has started to work on his weight. His girlfriend who is a nurse is helping him. Hopefully this will get him on a trend downward instead of upward. Assessment & Plan (10/09/2020 10:37 AM EMPLOYEE BENEFITS COORDINATOR): We recommended attention to his diet and [...] to get it down. 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 Continue efforts. Assessment & Plan (11/01/2018 1:36 PM EMPLOYEE BENEFITS COORDINATOR): He has lost about 10 lb since [...] continued 6. Avoid alcohol sedatives and other SERVICE AIDE depression that may worsen sleep apnea and disrupt normal sleep architecture Assessment & Plan (01/27/2021 4:03 PM EMPLOYEE BENEFITS COORDINATOR): He continues on CPAP. He gets a good night's sleep. Assessment & Plan (07/22/2020 3:16 PM CDT): He went on CPAP and it has been life changing. He sleeping well. Energy level is good. Verruca vulgaris 10/31/2019 Assessment & Plan (12/01/2019 3:55 PM EMPLOYEE BENEFITS COORDINATOR): I will set the patient up for the removal of the last remaining skin lesions. Assessment & Plan (10/31/2019 10:41 AM EMPLOYEE BENEFITS COORDINATOR): Pathology results returned as verruca vulgaris. We will plan for removal of another 20-30 in the setting. Given the shear number we may have to bring him back 1 further time to complete the last few remaining. He is in understanding. Steatohepatitis, non-alcoholic 07/26/2019 Assessment & Plan (01/27/2021 4:03 PM EMPLOYEE BENEFITS COORDINATOR): He has had a mild elevation of liver enzymes. I recommended weight loss. We will monitor labs periodically. Assessment & Plan (10/03/2020 3:47 PM EMPLOYEE BENEFITS COORDINATOR): His last set of labs did show [...] only scores 3 or 4 on the Martin scale. However he seems to be at risk for sleep apnea. He is quite obese. He has a Mallampati class 2-3 exam. His friends tell salomonnj that he snores. We will request a [...] 10/22/2018 Assessment & Plan (10/09/2020 10:37 AM EMPLOYEE BENEFITS COORDINATOR): We went over his lipids for purposes [...] recheck. Assessment & Plan (10/03/2020 3:46 PM EMPLOYEE BENEFITS COORDINATOR): He is here for biometric screening so [...] requested. Assessment & Plan (10/24/2018 3:21 PM EMPLOYEE BENEFITS COORDINATOR): Blood pressure is in a good range [...] PATIENT. Assessment & Plan (01/27/2021 4:06 PM EMPLOYEE BENEFITS COORDINATOR): He had mild coronary disease on cardiac [...] medicine. Assessment & Plan (10/24/2018 3:21 PM EMPLOYEE BENEFITS COORDINATOR): He has no complaints of chest pain. [...] sugar. Assessment & Plan (10/03/2020 3:46 PM EMPLOYEE BENEFITS COORDINATOR): We discussed the mild elevation of his blood sugar which might be pre diabetes. Weight loss would be helpful. Assessment & Plan (10/24/2018 3:22 PM EMPLOYEE BENEFITS COORDINATOR): In the past, he has had some [...] COPD Assessment & Plan (01/27/2021 4:07 PM EMPLOYEE BENEFITS COORDINATOR): He has mild to moderate symptoms. He has a rescue inhaler for use as needed. He has not been using his Symbicort because it is so expensive. He will call his insurance to see if alternatives are available. Assessment & Plan (10/09/2020 10:35 AM EMPLOYEE BENEFITS COORDINATOR): He has chronic COPD from allergies. He [...] satisfactory. Assessment & Plan (10/24/2018 3:20 PM EMPLOYEE BENEFITS COORDINATOR): He used to smoke cigarettes but quit many years ago. He does use a Symbicort inhaler and has a rescue inhaler as needed. Lungs are clear and oxygen saturations are normal. Continue same. Low back pain 08/25/2007 Overview (03/01/2017): Low back pain Assessment & Plan (10/21/2021 1:02 PM EMPLOYEE BENEFITS COORDINATOR): Scanned office note, Dr. Patel, [facility]. [...] same. Assessment & Plan (10/24/2018 3:23 PM EMPLOYEE BENEFITS COORDINATOR): He is on Cymbalta. His mood is [...] management. Assessment & Plan (12/05/2020 4:31 PM EMPLOYEE BENEFITS COORDINATOR): Probable tendonitis. I advised that he try [...] Mini. Assessment & Plan (10/09/2020 10:36 AM EMPLOYEE BENEFITS COORDINATOR): Since last , about five days ago, [...] noteStephie. Assessment & Plan (11/13/2019 2:34 PM EMPLOYEE BENEFITS COORDINATOR): Pt has improved over the past few [...] 10/31/2019 Assessment & Plan (10/16/2019 1:32 PM EMPLOYEE BENEFITS COORDINATOR): We will set this patient up for excision under local anesthetic in the office. Given the shear number and sensitive nature of the area I have discussed that we may have to do this in 2 settings given the large number. He is in understanding. Assessment & Plan (10/11/2019 1:21 PM EMPLOYEE BENEFITS COORDINATOR): Discussed the procedure of excision of the lesion and the patient expressed desire for removal of the inner thigh lesion and 3 on his back. Discussed wound care after procedure. Community acquired pneumonia of right lower lobe of lung 10/10/2019 11/28/2019 Overview (11/28/2019): See office note. Treated empirically. Assessment & Plan (10/24/2019 11:12 AM EMPLOYEE BENEFITS COORDINATOR): He has had respiratory symptoms off and [...] Team Description 03/31/2025 2:[address] [facility] at [address] [place] [address] Faye Colindres MD Obstructive sleep apnea (Primary Dx); Hypersomnia; Obesity, unspecified class, unspecified obesity type, unspecified whether serious comorbidity present 03/24/2025 Telephone [facility] [address] [place] [address] [address] [place] [address] Melanie Palacios MA from Last [...] mildly diminished LVEF, Dr. Perry, [facility]. CERVICAL FUSION 11/25/2021 - 11/24/2022 x4 SPINAL CORD STIMULATOR IMPLANT 11/25/2022 - 11/24/2023 CARDIAC CATHETERIZATION 12/30/2024 N/A Procedure: LEFT HEART CATHETERIZATION WITH CORONARY ANGIOGRAPHY AND WITH OR WITHOUT LEFT VENTRICULOGRAM [id number]; Surgeon: Polly Null MD; Location: CARDIAC MACHINE [facility]; Service: Cardiovascular; Laterality: N/A; Medical devices from [...] on file Legal Sex Male 9:12 AM EMPLOYEE BENEFITS COORDINATOR Gender Identity Not on file Sexual [...] Completed 07/21/2019 Medical Devices Implanted Type Area Sales Person Device Identifier Shelf Expiration Date Model / Serial / Lot Neurostimulator Neurostimulator Back [facility] Device Closure Vascade Od5 Fr Femoral Artery [id number] - [id number] Implanted:Qty: 1 on 12/30/2024 by Polly Null MD at [facility] 04/02/2026 [id number] / / [id number] Procedures Procedure Name Priority Date/Time Associated Diagnosis Comments HEPATITIS C ANTIBODY Routine 07/21/2019 7:06 AM CDT from Last 3 Months or Most Recently Relevant to Health Maintenance Results * Hepatitis C antibody (07/21/2019 7:06 AM CDT) Hep C Ab NON-REACT CATRINA NON-REACT CATRINA [facility] - [employer] SIGNAL TO CUT-OFF 0.03 <1.00 [facility] - [place] Comment: HCV antibody was non-reactive. There is no laboratory evidence of HCV infection. In most cases, no further action is required. However, if recent HCV exposure is suspected, a test for HCV RNA (test code 73849) is suggested. For additional information please refer to http://education.sfilatino/faq/XSM71l2 (This link is being provided for informational/ educational purposes only.) 07/21/2019 7:06 AM CDT 07/21/2019 7:11 AM CDT Narrative [facility] - 07/23/2019 4:34 PM CDT FASTING:YES FASTING: YES Resulting Agency Comment Performing Organization Information: Site ID: [place] Name: [employer] Address: [address] [place] [address] Director: Orion Glynn D.O., MPH Az Allison MD LAB MICROBIOLOGY - GENERAL OR DERABLES Final Result [facility] - AMADA Carrera from Last 3 Months or Most Recently Relevant to Health Maintenance Insurance [facility] MEDICARE [facility] Address: [address] [address] [place] [address] WORKERS COMPENSATION GENERIC WORKERS COMPENSATION GENERIC Care Teams Supervisor Winding Department Relationship Specialty Start Date End Date Hai Pradhan MD PCP - General Internal Medicine 09/20/22 Pascale Wolff MD Consulting Physician Sleep Medicine 12/06/19 Rudi Patel MD Resident Neurosurgery 06/08/21
--- OUTSIDE RECORDS SUMMARY | 2025-06-07 01:49 | XMS_ITS | Patient Health Record ---
Author Organization [facility] Address [address] [address] Care Team Providers Care Bag Bailer Name Role Phone Brian Chen [phone] Allergies Allergen (clinical drug ingredient) Drug/Non Drug [...] syndrome (M96.1) Active confirmed Problem Bilateral sacroiliitis (8356357035) Bilateral sacroiliitis (M46.1) Active confirmed Problem History of lumbar fusion (06442187719530) History of lumbar fusion (Z98.1) Active confirmed Plan Of Treatment No Information Medications Administered Medication Instructions Date of Administration Dosage Notes Bilateral Sacroiliac Joint Injection 04/29/2023 Medical (General) History Medical History History ICD Code high blood pressure headaches nerve damage
--- OUTSIDE RECORDS SUMMARY | 2025-06-07 01:49 | XMS_ITS | Encounter Summary ---
Author Organization [facility] Address [address] [place] [address] Phone Care Team Providers Care Waredresser Name Role Phone Hai Pradhan MD Primary Care Provider [phone] Reason for Referral * Radiology Services (Routine) - Closed Specialty Diagnoses / Procedures Referred By Contac t Referred To Contact Radiology Diagnoses Lumbar radiculopathy Low back pain, unspecified back pain laterality, unspecified chronicity, unspecified whether sciatica present Procedures XR LUMBAR MYELO 1 PHY PC PAIN CONSULT XR LUMBAR MYELO 1 PHY Kenan Patel MD [address] [place] [address] Phone: tel: fax: Referral ID Status Reason Start Date Expiration Date Visits Re quested Visits Authorized [id number] Closed 02/12/2023 1 1 * Radiology Services (Routine) - Closed Specialty Diagnoses / Procedures Referred By Contac t Referred To Contact Radiology Diagnoses Lumbar radiculopathy Low back pain, unspecified back pain laterality, unspecified chronicity, unspecified whether sciatica present Procedures CT LUMBAR SPINE W CONTRAST Kenan Patel MD [address] [place] [address] Phone: tel: fax: Referral ID Status Reason Start Date Expiration Date Visits Re quested Visits Authorized [id number] Closed 02/12/2023 1 1 Encounter Details Date Type Department Care Team (Latest Contact Info) Description 02/12/2023 Transcribe Orders [facility] [address] [place] [address] Kenan Patel MD [address] [place] [address] Lumbar radiculopathy (Primary Dx); Low back pain, [...] Candelario Campo M.D. LC: ONEAL Report ID: [id number] Reading Location: [id number] Procedure Note Winter Campo MD - 02/21/2023 [...] Candelario Campo M.D. LC: ONEAL Report ID: [id number] Reading Location: [id number] IMPRESSION: Posterior lumbar instrumented fusion spanning L2 [...] Miguel Mchugh M.D. KN: SOL Report ID: [id number] Reading Location: [id number] Procedure Note Miguel Mchugh MD - 02/21/2023 [...] Miguel Mchugh M.D. KN: SOL Report ID: [id number] Reading Location: [place] [address] IMPRESSION: Lumbar Myelogram performed for CT Myelography. [...] present documented in this encounter Care Teams Waredresser Relationship Specialty Start Date End Date Hai Pradhan MD [address] [place] [address] PCP - General Internal Medicine 02/18/23 documented as of this encounter
--- OUTSIDE RECORDS SUMMARY | 2025-06-07 01:49 | XMS_ITS | Data Portability ---
Author Organization [facility] Terese [facility] Address [address] [place] [address] Assessment No assessment recorded. Plan of Treatment [...] SNOMED-CT Code Diagnosis ICD10 Code Diagnosis Note [id number] MD Mary Georges [address] IM [address] [place] [address] 03/24/2021 15:02:45 03/24/2021 16:17:15 Administration of SARS-CoV-2 antigen vaccine [id number] Z23 [id number] MD Mary Georges [address] [place] [address] 04/21/2021 14:46:55 04/21/2021 15:46:03 Administration of SARS-CoV-2 antigen vaccine [id number] Z23 Health Concerns Section Related Observation LastModified by Organization Detai ls LastModified Time None Recorded Concern Status LastModified by Organization Details LastModified Time None Recorded Advance Directives Directive None Recorded Payers Insurance Date Sequence Insurance Name Policy Number Policy Clement Covered Member ID Clement Member ID Guarantor Name 04/15/2024 [facility] [employer] Javier Sanchez [id number] Javier Sanchez 04/15/2024 1 [facility] - DOS PRIOR TO 2021 (MEDICAID REPLACEMENT - HMO) Javier Sanchez [id number] Javier Sanchez
--- OUTSIDE RECORDS SUMMARY | 2025-06-07 01:49 | XMS_ITS | Continuity of Care Document ---
Author Organization [facility] Address [address] [place] [address] Phone Care Team Providers Care Radial Arm Saw Operator Name Role Phone Christen Sood PT Unavailable Unavailable Procedures Procedure Date FCE Each 15min FCE Each 15min Advance Directives Directive Yes / No Effective Date File Name No Information Encounters Encounter Description Practice Location Reason(s) For Visit Diagnoses Date Provider Providers Copied on Encounter [facility], [address], [id number], tel:[phone] [place] No Information Barrie Velásquez. . Referring Provider: [address], [place], [address]. tel:[phone] [facility], [address] [place] [address], [place], [id number], tel:[phone] [place] No Information Gloria Dixon. [address] [place] [address], [address], . tel:[phone] Referring Provider: [address], [place], [address]. tel:[phone] Family History Family Member Type Diagnosis Age At Onset No Information Payers Payer name Insurance type Covered republican ID Authoriza mary kaymalorie(s) Rubén [id number] Social History Type Description Quantity Date Captured [...]
--- OUTSIDE RECORDS SUMMARY | 2025-06-07 01:49 | XMS_ITS | Referral Summary ---
Author Organization [facility] [address] Address [address] [place] [address] Phone Care Team Providers Care Lard Refiner Name Role Phone Pascale Wolff MD Unavailable Rudi Patel MD Unavailable [phone] Hai Pradhan MD Primary Care Provider [phone] Encounters Date Type Department Care Team Description 03/31/2025 2:15 PM CDT Telemedicine [facility] Sleep Medicine at [address] [place] [address] Faye Colindres MD Obstructive sleep apnea (Primary Dx); Hypersomnia; Obesity, unspecified class, unspecified obesity type, unspecified whether serious comorbidity present 03/24/2025 Telephone [facility] [address] [place] [address] [address] [place] [address] Melanie Palacios MA from Last [...] of this month with Dr. Patel at [facility]. MRI of the lumbar spine was done at [facility], and we will get those images and report. However there has been no imaging of the C-spine. 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 Sensory exam in the arms and [...] 41. Assessment & Plan (01/27/2021 4:04 PM LEATHER STITCHER): He has started to work on his weight. His girlfriend who is a nurse is helping him. Hopefully this will get him on a trend downward instead of upward. Assessment & Plan (10/09/2020 10:37 AM LEATHER STITCHER): We recommended attention to his diet and [...] to get it down. 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 Continue efforts. Assessment & Plan (11/01/2018 1:36 PM LEATHER STITCHER): He has lost about 10 lb since [...] continued 6. Avoid alcohol sedatives and other GROUND SU[employer] EQUIPMENT ME[employer]IC depression that may worsen sleep apnea and disrupt normal sleep architecture Assessment & Plan (01/27/2021 4:03 PM LEATHER STITCHER): He continues on CPAP. He gets a good night's sleep. Assessment & Plan (07/22/2020 3:16 PM CDT): He went on CPAP and it has been life changing. He sleeping well. Energy level is good. Verruca vulgaris 10/31/2019 Assessment & Plan (12/01/2019 3:55 PM LEATHER STITCHER): I will set the patient up for the removal of the last remaining skin lesions. Assessment & Plan (10/31/2019 10:41 AM LEATHER STITCHER): Pathology results returned as verruca vulgaris. We will plan for removal of another 20-30 in the setting. Given the shear number we may have to bring him back 1 further time to complete the last few remaining. He is in understanding. Steatohepatitis, non-alcoholic 07/26/2019 Assessment & Plan (01/27/2021 4:03 PM LEATHER STITCHER): He has had a mild elevation of liver enzymes. I recommended weight loss. We will monitor labs periodically. Assessment & Plan (10/03/2020 3:47 PM LEATHER STITCHER): His last set of labs did show [...] only scores 3 or 4 on the [employer] scale. However he seems to be at risk for sleep apnea. He is quite obese. He has a Mallampati class 2-3 exam. His friends tell [facility] that he snores. We will request a [...] 10/22/2018 Assessment & Plan (10/09/2020 10:37 AM LEATHER STITCHER): We went over his lipids for purposes [...] recheck. Assessment & Plan (10/03/2020 3:46 PM LEATHER STITCHER): He is here for biometric screening so [...] requested. Assessment & Plan (10/24/2018 3:21 PM LEATHER STITCHER): Blood pressure is in a good range [...] PATIENT. Assessment & Plan (01/27/2021 4:06 PM LEATHER STITCHER): He had mild coronary disease on cardiac [...] medicine. Assessment & Plan (10/24/2018 3:21 PM LEATHER STITCHER): He has no complaints of chest pain. [...] sugar. Assessment & Plan (10/03/2020 3:46 PM LEATHER STITCHER): We discussed the mild elevation of his blood sugar which might be pre diabetes. Weight loss would be helpful. Assessment & Plan (10/24/2018 3:22 PM LEATHER STITCHER): In the past, he has had some [...] COPD Assessment & Plan (01/27/2021 4:07 PM LEATHER STITCHER): He has mild to moderate symptoms. He has a rescue inhaler for use as needed. He has not been using his Symbicort because it is so expensive. He will call his insurance to see if alternatives are available. Assessment & Plan (10/09/2020 10:35 AM LEATHER STITCHER): He has chronic COPD from allergies. He [...] satisfactory. Assessment & Plan (10/24/2018 3:20 PM LEATHER STITCHER): He used to smoke cigarettes but quit many years ago. He does use a Symbicort inhaler and has a rescue inhaler as needed. Lungs are clear and oxygen saturations are normal. Continue same. Low back pain 08/25/2007 Overview (03/01/2017): Low back pain Assessment & Plan (10/21/2021 1:02 PM LEATHER STITCHER): Scanned office note, Dr. Patel, [facility]. [...] same. Assessment & Plan (10/24/2018 3:23 PM LEATHER STITCHER): He is on Cymbalta. His mood is [...] management. Assessment & Plan (12/05/2020 4:31 PM LEATHER STITCHER): Probable tendonitis. I advised that he try [...] Srinivasaicef. Assessment & Plan (10/09/2020 10:36 AM LEATHER STITCHER): Since last , about five days ago, [...] Stephie. Assessment & Plan (11/13/2019 2:34 PM LEATHER STITCHER): Pt has improved over the past few [...] 10/31/2019 Assessment & Plan (10/16/2019 1:32 PM LEATHER STITCHER): We will set this patient up for excision under local anesthetic in the office. Given the shear number and sensitive nature of the area I have discussed that we may have to do this in 2 settings given the large number. He is in understanding. Assessment & Plan (10/11/2019 1:21 PM LEATHER STITCHER): Discussed the procedure of excision of the lesion and the patient expressed desire for removal of the inner thigh lesion and 3 on his back. Discussed wound care after procedure. Community acquired pneumonia of right lower lobe of lung 10/10/2019 11/28/2019 Overview (11/28/2019): See office note. Treated empirically. Assessment & Plan (10/24/2019 11:12 AM LEATHER STITCHER): He has had respiratory symptoms off and [...] on file Legal Sex Male 9:12 AM LEATHER STITCHER Gender Identity Not on file Sexual Orientation [...] on file Medical Devices Implanted Type Area Hollow Tile Partition Erector Device Identifier Shelf Expiration Date Model / Serial / Lot Neurostimulator Neurostimulator Back [facility] Device Closure Vascade Od5 Fr Femoral Artery [id number] - [id number] Implanted:Qty: 1 on 12/30/2024 by Polly Null MD at [facility] 04/02/2026 [id number] / / [id number] Procedures Procedure Name Priority Date/Time Associated [...] a test for HCV RNA (test code 01612) is suggested. For additional information please refer to http://education.MaxPreps/faq/KTL45s2 (This link is being provided for informational/ educational purposes only.) 07/21/2019 7:06 AM CDT 07/21/2019 7:11 AM CDT Narrative [facility] - 07/23/2019 4:34 PM CDT FASTING:YES FASTING: YES Resulting Agency Comment Performing Organization Information: Site ID: [id number] Name: [facility] Address: [address] [address] Director: Orion Glynn D.O., MPH Az Allison MD LAB MICROBIOLOGY - GENERAL OR DERABLES Final Result [facility] from Last 3 Months or Most Recently Relevant to Health Maintenance Insurance [facility] MEDICARE [facility] Address: [address] [address] [place] [address] WORKERS COMPENSATION GENERIC WORKERS COMPENSATION GENERIC Care Teams Lard Refiner Relationship Specialty Start Date End Date Hai Pradhan MD PCP - General Internal Medicine 09/20/22 Pascale Wolff MD Consulting Physician Sleep Medicine 12/06/19 Rudi Patel MD Resident Neurosurgery 06/08/21
[2025-06-07] MEDS: LACTATED RINGERS 1,000 ML 30 ML IV CONT ×2 (10:35→13:48)
[2025-06-07] MEDS: KETOROLAC 15 MG/ML VIAL (*BKC) IV PUSH ×2 (10:40→13:32)
[2025-06-07] MEDS: ACETAMINOPHEN 500 MG TABLET 1000 MG PO (10:40)
--- NOTE | 2025-06-07 10:44 | P.PNAN_ITS ---
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 Patient Data Age: 54 Gender: M Height: 1.7 m Weight: 101.9 kg Last Vital Signs Temp 97.9 F 06/07/25 10:05 Pulse 51 L 06/07/25 10:05 Resp 16 06/07/25 10:05 BP 133/78 06/07/25 10:05 Pulse Ox 100 06/07/25 10:05 O2 Del Method Room Air 06/07/25 10:05 Allergies Allergy/AdvReac Type Severity Reaction Status Date / Time hydrocodone (From Vicodin) Allergy Intermediate Gastrointestinal Verified 06/01/25 14:57 Upset Penicillins Allergy Intermediate Joint Pain Verified 06/01/25 14:57 Home Medications ?Medication ?Instructions ?Recorded ?Confirmed ?Type aspirin 81 mg tablet,delayed 81 mg PO DAILY 11/04/24 06/07/25 History release duloxetine 60 mg capsule,delayed 60 mg PO DAILY 11/04/24 06/07/25 History release losartan 100 mg tablet 50 mg PO DAILY 11/04/24 06/07/25 History rosuvastatin 5 mg tablet 5 mg PO DAILY 11/04/24 06/07/25 History semaglutide 2 mg/dose (8 mg/3 mL) 2 mg subcut WEEKLY 12/23/24 06/07/25 History subcutaneous pen injector (Ozempic) Laboratory Tests 06/07/25 10:27 POC Capillary Glucose 105 mg/dl (65-105) Patient hx anesthesia problems: none Family hx anesthesia problems: none Results Review: All pre-operative results and documents have been reviewed as part of the pre- operative evaluation. [facility] Past Medical History Medical History (Updated 05/17/25 @ 13:55 by Sarah Cavazos) Chronic, continuous use of opioids Chronic pain Diabetes type 2, controlled Hypertension Hyperlipidemia Surgical History Surgical History (Updated 05/17/25 @ 13:26 by Cisco Goldstein MA) History of anal lesion 01/04/25 1. Rectal exam under anesthesia 2. Excision of anal skin lesion 3. CO2 laser ablation anal condyloma Dr. Zuñiga History of cervical spinal surgery Social History Social History (Updated 05/17/25 @ 13:26 by Cisco Goldstein MA) Smoking packs per day: 1 Smoking cigarettes per day: 20.0 Years smoked: 10 Smoking pack-years: 10.00 Smoking status: Former smoker Tobacco type: cigarettes Smoking end date: 12/23/12 Additional smoking assessment comments: QUIT 2014 Alcohol intake: former Do You Feel Safe in your Home?: Yes Lack of Transportation: No Lack of Food: Never True Current Housing: I Have Housing Concerned About Future Housing: No Difficulty Paying Gas/Electric Bills: No Difficulty Paying for Meds: No Currently Unemployed: No Education: High School Diploma/GED Difficulty w/ Childcare or Family Care: No Living arrangements: with family Spiritual care concerns: No Anes - Eval Final PreProcedure Day of Procedure 06/07/25 10:44 Patient weight: obese Heart: regular rate and rhythm Lungs: clear to auscultation Airway: Mallampati scale class II Neurological: alert and oriented Last oral intake: >/= 8 hours ASA classification: III Emergent: no Anesthetic plan: proceed Anesthesia type and monitoring: general ETT and standard monitoring Results Review: All pre-operative results and documents have been reviewed as part of the pre- operative evaluation. Informed Consent: The patient's anesthetic plan and its attendant risks and benefits were discussed with the patient/family/POA. Questions were solicited and answers provided to the satisfaction of the patient/family/POA.
--- NOTE | 2025-06-07 12:12 | WPDHPUPDATE1 ---
History and Physical Update Update Date/Time: 06/07/25 12:12 History and Physical has been reviewed, including an updated exam of the patient. There are NO changes in the patient's condition. Risks, benefits, and alternatives have been discussed and questions answered. Patient agrees to proceed with procedure.
[2025-06-07] MEDS: ceFAZolin 2 GM in SODIUM CHLORIDE 0.9% IV 50 ML 100 ML IVPB (12:46)
[2025-06-07] MEDS: BUPIVACAINE/EPINEPHRINE 0.5% 50 ML VIAL 30 ML INFILTRATE (13:18)
--- NOTE | 2025-06-07 13:39 | W.PM.PROC2 ---
Procedure Note - Detailed Date of Procedure 06/07/25 Pre-op Diagnosis anal condyloma and fissure Post-op Diagnosis Same (Anterior midline anal fissure, anal condyloma) Procedure Performed 1. CO2 laser ablation of anal condyloma 2. Left lateral internal sphincterotomy Surgeon Ernie Zuñiga, DO Anesthesia General and Local ( 0.5% bupivacaine with epinephrine) Indications this is a 54-year-old man who presented with painful bowel movements and rectal bleeding. He has a history of anal condyloma and previously underwent CO2 laser ablation multiple areas of anal condyloma. He still has a few small areas of condyloma remaining and also has findings consistent with an anal fissure. Discussions were made with the patient about treatment options and decision was made to proceed with rectal exam under anesthesia, CO2 laser ablation anal condyloma, and possible lateral internal sphincterotomy. Findings Patient was found have 4 small areas residual anal condyloma in the right posterior region perianal skin and was also found to have a small area of anal condyloma on the left anterior location involving a residual hemorrhoid skin tag. There did not appear to be any condyloma within the anal canal or rectum. CO2 laser ablation was performed at the noted areas. The patient was also found to have an anterior midline anal fissure. Left lateral internal sphincterotomy was performed. This allowed adequate relaxation of the sphincter muscle to promote healing. The chronic granulation tissue over the fissure was also cauterized to help promote healing. No specimens were obtained for pathology. Description of Procedure Procedure as well as risks, benefits, and alternatives were discussed with the patient. Written consent was obtained and placed in chart prior to procedure. Patient was brought back to surgical suite. He was placed supine the hospital stretcher. Time-out was done to confirm patient and procedure. He was then intubated by the anesthesia department. He was then repositioned into prone wero-knife position on the operating room table. His perianal area was prepped and draped in sterile fashion using Betadine prep. Digital rectal exam was initially performed. 0.5% bupivacaine with epinephrine was then infiltrated locally around the perianal region. The areas anal condyloma were identified in the right posterior and left anterior locations. CO2 laser ablation was performed in these locations using the laser set at 6 w. Each of the areas appeared very small encompassing only about 1-2 mm. After completing laser ablation of the involved areas, there did not appear to be any residual condyloma in the perianal skin or within the anal canal. I then inserted a Hill-Espinoza anoscope and carefully inspected the anal rectal canal. An anterior midline anal fissure was identified but no other abnormalities were noted. A Fansler anoscope was then inserted and the intersphincteric groove was identified in the left lateral location. I then made a 2 cm incision directly over the internal sphincter muscle fibers using a 15 blade scalpel. Electrocautery was used for hemostasis. The internal sphincter muscle fibers were then isolated with a curved hemostat. The sphincterotomy was then performed using electrocautery. This appeared to allow for adequate relaxation to about the level the fissure. There still appeared to be adequate sphincter muscle deeper to this location. Hemostasis appeared adequate no other abnormalities were noted. The area was irrigated with sterile saline. The incision was then reapproximated over the sphincterotomy location using 3-0 chromic simple interrupted sutures. The fissure was then cauterized with electrocautery to help promote healing. One final inspection was made around the area no other abnormalities were noted. Xeroform gauze was then applied followed by fluff gauze, ABD pad, and mesh underwear. The patient was then awakened from anesthesia, extubated, and transferred to recovery. Estimated Blood Loss 5 Complications No immediate complications Condition Stable Disposition Same day [facility] Billing Surgery - Charge Forward: Surgery Billing
[2025-06-07] MEDS: ONDANSETRON INJ 4 MG/2 ML VIAL IV PUSH (14:26)
== END 2025-06-07 15:22 | disposition home or self-care (01) ==
PROVIDERS: PCP Internal Medicine; Visit Provider Surgery
PROC: (CPT 46917; principal; 2025-06-07 12:00)
DX: K60.2 Anal fissure, unspecified (principal); A63.0 Anogenital (venereal) warts; G89.29 Other chronic pain; E11.9 Type 2 diabetes mellitus without complications; I10 Essential (primary) hypertension; E78.5 Hyperlipidemia, unspecified; E66.9 Obesity, unspecified; Z68.35 Body mass index [BMI] 35.0-35.9, adult; Z79.82 Long term (current) use of aspirin; Z79.85 Long-term (current) use of injectable non-insulin antidiabetic drugs; Z98.890 Other specified postprocedural states; Z98.1 Arthrodesis status; Z87.891 Personal history of nicotine dependence
CPT/HCPCS: 46917; 82948; J0690; A9270; J1885; J2250; J2405; J3010; J7120